=== PATIENT | female | born 1935 | race Caucasian/White ===

== ENCOUNTER → 2016-06-15 | Outpatient (CLI) | payer MEDICARE, BC ==
--- NOTE | 2016-06-15 12:56 | MR ---
EXAMINATION TYPE: MR brain wo con DATE OF EXAM: 06/15/2016 12:26 PM. COMPARISON: Previous study dated 02/22/2014. HISTORY: Confusion. Technique: Multiplanar, multiecho imaging of the brain was obtained without intravenous contrast. FINDINGS: There are generalized changes of sulcal prominence and ventriculomegaly, compatible with a trophic change. There is mild atrophy of the corpus callosum. Midline structures are otherwise unremarkable. There is a normal craniocervical junction. Echoplanar diffusion imaging is normal. There are normal vascular flow voids. The orbits are normal. There is no evidence of a CP angle mass lesion. There is minor mucoperiosteal thickening involving the maxillary sinuses bilaterally. There is abnormal signal within the genny and cerebral peduncles suggestive of layering degeneration. There is both punctate and confluent periventricular white matter change likely on the basis of chron ic ischemia and small vessel IMPRESSION: 1. NO ACUTE INTRACRANIAL ABNORMALITY. 2. MILD CEREBRAL ATROPHY. 3. PUNCTATE AND CONFLUENT WHITE MATTER DISEASE SUGGESTIVE SMALL VESSEL DISEASE AND CHRONIC ISCHEMIC C HANGE. 4. EVIDENCE OF DEGENERATION WITHIN THE GENNY.
== END | disposition home or self-care (01) ==
LOC: RADMRIMAIN 11:48
PROVIDERS: ATTEND Psychiatry & Neurology Neurology
DX: G31.9 Degenerative disease of nervous system, unspecified (principal)
CPT/HCPCS: 70551

== ENCOUNTER 2017-10-15 12:39 | Emergency (ER) | payer MEDICARE, BC ==
--- NOTE | 2017-10-15 13:03 | ED ---
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 Patient is accompanied by her daughter and granddaughter live with her the history was obtained from patient & family. Who stated that she had fallen a couple times over the weekend, they state that they were all mechanical in nature and witnessed . Patient was outside on uneven ground the grass with her walker when her walker caught on the ground patient fell backward and hit her lower back on the edge without, denies loss of consciousness, injury to her head or neck or any other extremities. She did have ecchymosis to the left paravertebral muscles. The second time they were inside when her walker caught the edge of the rug, pt fell backwards onto her buttock. Denying injury to head, neck or other extremity, LOC. The pst Saturday she was sent home when she tripped over the dog and her son in law was able to catch her before she fell. The patient brought by family due to complaints of low back pain and bruise to the left lower back. Patient denies any chest pain , shortness of breath, dizziness, numbness tingling or paresthesias to the extremities, visual changes, loss of hearing, diplopia prior to falling. When I inquired why she didn't she is falling so much she stated that her balance as she is getting older and has gotten worse and all the falls have been related to tripping over an object or with walker on uneven surface. Pt family feels as though she has been acting herself and havent noted any abnormalities in mental status. Upon presentation to the emergency department pt VS WNL. Pt denies new medications or increased in mediation dosage, numbness that her thighs, loss of bowel or bladder control , recent weight loss ,recent fever, chills, shortness of breath, vertigo, syncope, chest pain, back pain, abdominal pain, nausea or vomiting, numbness or tingling, dysuria or hematuria, constipation or diarrhea, headaches or visual changes, confusion or any other complaints. - Related Data Home Medications Medication Instructions Recorded Confirmed Cholecalciferol [Vitamin D3] 1,000 unit PO DAILY 10/02/13 10/15/17 FLUoxetine HCL [PROzac] 40 mg PO DAILY 10/02/13 10/15/17 Levothyroxine Sodium [Synthroid] 50 mcg PO DAILY 10/02/13 10/15/17 Aspirin EC [Ecotrin Low Dose] 81 mg PO DAILY 12/23/15 10/15/17 Atorvastatin [Lipitor] 10 mg PO HS 12/23/15 10/15/17 Latanoprost Ophth [Xalatan 0.005%] 1 drops BOTH EYES HS 12/23/15 10/15/17 Timolol Maleate 1 drop BOTH EYES QAM 12/23/15 10/15/17 rOPINIRole HCL [Requip] 3 mg PO HS 12/23/15 10/15/17 Omeprazole [PriLOSEC] 40 mg PO BID 01/28/17 10/15/17 Donepezil HCl [Aricept] 5 mg PO HS 10/15/17 10/15/17 Potassium Chloride [Klor-Con 20] 10 meq PO DAILY 10/15/17 10/15/17 Previous Rx's Medication Instructions Recorded ALPRAZolam [Xanax] 0.125 mg PO HS PRN #20 tablet 02/01/17 Allergies Allergy/AdvReac Type Severity Reaction Status Date / Time No Known Allergies Allergy Verified 10/15/17 13:38 Review of Systems ROS Statement: Those systems with pertinent positive or pertinent negative responses have been documented in the HPI. ROS Other: All systems not noted in ROS Statement are negative. Eyes: Denies: eye pain ENT: Denies: ear pain, throat pain Respiratory: Denies: cough, dyspnea Cardiovascular: Denies: chest pain, palpitations, dyspnea on exertion, orthopnea , edema, syncope Endocrine: Denies: fatigue Gastrointestinal: Denies: abdominal pain, nausea, vomiting, diarrhea, constipation, hematemesis, melena Genitourinary: Denies: urgency, dysuria, frequency, hematuria Musculoskeletal: Reports: as per HPI, back pain. Denies: joint swelling, arthralgia Skin: Denies: as per HPI Neurological: Denies: headache, weakness, numbness, paresthesias, confusion, abnormal gait, vertigo Past Medical History Past Medical History: Cancer, CVA/TIA, Diabetes Mellitus, GERD/Reflux, Hyperlipidemia, Hypertension, Osteoarthritis (OA), Thyroid Disorder Additional Past Medical History / Comment(s): Other HX: Diabetes-pt taken off meds, hyperlipidemia-pt no longer on meds, htn-meds tapered down, ARTHRITIS, BACK PAIN, SKIN CA, CVA alittle generalized weakness residual, TIA APRIL 2013 ( pt/francisco j think she has a couple), irregular heart beat at times, bradycardia at times. History of Any Multi-Drug Resistant Organisms: None Reported Past Surgical History: Hysterectomy Additional Past Surgical History / Comment(s): colonoscopies with polypectomy- benign. Patient had epidural in lumbar spine on 01-07-17. Past Anesthesia/Blood Transfusion Reactions: No Reported Reaction Past Psychological History: Anxiety, Depression Smoking Status: Never smoker Past Alcohol Use History: None Reported Past Drug Use History: None Reported - Past Family History Father Family Medical History: Coronary Artery Disease (CAD), Myocardial Infarction ([place] ) Additional Family Medical History / Comment(s): Father of [place]-pt unsure what age,. Mother Family Medical History: CVA/TIA General Exam - General Exam Comments Initial Comments: General: The patient is awake and alert, in no distress, and does not appear acutely ill. Eye: Pupils are equal, round and reactive to light, extra-ocular movements are intact. No nystagmus. There is normal conjunctiva bilaterally. No signs of icterus. Ears, nose, mouth and throat: There are moist mucous membranes and no oral lesions. Neck: The neck is supple, there is no tenderness or JVD. Cardiovascular: There is a regular rate and rhythm. No murmur, rub or gallop is appreciated. Respiratory: Lungs are clear to auscultation, respirations are non-labored, breath sounds are equal. No wheezes, stridor, rales, or rhonchi. Gastrointestinal: [Soft, non-distended, non-tender abdomen without masses or organomegaly noted. There is no rebound or guarding present. No CVA tenderness. Bowel sounds are unremarkable.] Musculoskeletal: Inspection of the lumbar spine reveals ecchymosis of the left lumbar paravertebral muscles. No tenderness patient of the vertebrae midline, mild paravertebral tenderness over the area of ecchymosis . Patient is full range of motion of lumbar spine with hyperextension and flexion . Deep tendon reflexes patellar and Achilles +2 out of 5 . Full sensation in lower extremities bilaterally . No saddle paresthesias . She able to heel and toe. No gait abnormalities. Normal ROM, no tenderness. Strength 5/5. Sensation intact. DP pulses equal bilaterally 2+. Neurological: A&O x 3. CN II-XII intact, patient has coordinated nose to finger motion, heel to rosas. No pronator drift. Full 5/5 strength in UE/LE equal bilaterally. Speech is normal. Memory intact immediate, intermediate and long-term. Normal gait- no evidence of ataxia. Skin: Skin is warm and dry and no rashes or lesions are noted. Psychiatric: Cooperative, appropriate mood & affect, normal judgment. 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 Patient is accompanied by her daughter and granddaughter live with her the history was obtained from patient & family. Who stated that she had fallen a couple times over the weekend, they state that they were all mechanical in nature and witnessed . Patient was outside on uneven ground the grass with her walker when her walker caught on the ground patient fell backward and hit her lower back on the edge without, denies loss of consciousness, injury to her head or neck or any other extremities. She did have ecchymosis to the left paravertebral muscles. The second time they were inside when her walker caught the edge of the rug, pt fell backwards onto her buttock. Denying injury to head, neck or other extremity, LOC. The [facility] Saturday she was sent home when she tripped over the dog and her son in law was able to catch her before she fell. The patient brought by family due to complaints of low back pain and bruise to the left lower back. Patient denies any chest pain , shortness of breath, dizziness, numbness tingling or paresthesias to the extremities, visual changes, loss of hearing, diplopia prior to falling. When I inquired why she didn't she is falling so much she stated that her balance as she is getting older and has gotten worse and all the falls have been related to tripping over an object or with walker on uneven surface. Pt family feels as though she has been acting herself and havent noted any abnormalities in mental status. Upon presentation to the emergency department pt VS WNL. Pt denies new medications or increased in mediation dosage, numbness that her thighs, loss of bowel or bladder control , recent weight loss ,recent fever, chills, shortness of breath, vertigo, syncope, chest pain, back pain, abdominal pain, nausea or vomiting, numbness or tingling, dysuria or hematuria, constipation or diarrhea, headaches or visual changes, confusion or any other complaints. Examination of the lumbar spine reveals a 6 cm area of left paravertebral muscle ecchymosis with tenderness over that region. Remainder of lumbar, thoracic, and cervical spine exam unremarkable. Neurological exam unremarkable no signs of focal change or altered mental status. EKG obtained and was compared to that of January 28, [address] Heart there does not appear to be any acute changes. X-ray of lumbar spine negative. Pt ambulated to [place] with the nurse prior to discharge, no signs of ataxia, weakness or unsteady gait. The case was discussed with Dr. Heart who at this time the patient is stable for discharge, with primary care follow-up in 1-2 days. Patient and family was instructed to come to the emergency department if there are any new or worsening symptoms. Patient is agreed this was an appropriate plan. VS upon discharge WNL. - Lab Data Lab Results 10/15/17 Range/Units 13:17 Urine Color Yellow Urine Appearance Cloudy H (Clear) Urine pH 6.5 (5.0-8.0) Ur Specific [facility] 1.018 (1.001-1.035) Urine Protein 1+ H (Negative) Urine Glucose (UA) Negative (Negative) Urine Ketones Negative (Negative) Urine Blood Negative (Negative) Urine Nitrite Negative (Negative) Urine Bilirubin Negative (Negative) Urine Urobilinogen <2.0 (<2.0) mg/dL Ur Leukocyte Esterase Large H (Negative) Urine RBC 1 (0-5) /hpf Urine WBC 3 (0-5) /hpf Ur Squamous Epith Cells 6 H (0-4) /hpf Urine Bacteria Rare H (None) /hpf Hyaline Casts 3 H (0-2) /lpf Urine Mucus Rare H (None) /hpf Disposition Clinical Impression: Low back pain Disposition: HOME SELF-CARE Condition: Good Instructions: Fall Prevention for Older Adults (ED) Additional Instructions: Please follow-up with family doctor in the next 2 days. Please return to emergency room if the symptoms increase or worsen or for any other concerns. Is patient prescribed a controlled substance at d/c from ED?: No Referrals: Violetta Pimentel MD [Primary Care Provider] - 1-2 days Time of Disposition: 14:19
[2017-10-15 13:35] LABS: Appearance,Urine Cloudy (Clear); Bacteria,Urine Rare /hpf; Bilirubin,Urine Negative (Negative); Blood,Urine Negative (Negative); Color,Urine Yellow; Glucose,Urine (UA) Negative (Negative); Hyaline Casts,Urine 3 /lpf (0-2); Ketones,Urine Negative (Negative); Leukocyte Esterase,Urine Large (Negative); Mucus,Urine Rare /hpf; Nitrite,Urine Negative (Negative); PH, Urine 6.5 (5.0-8.0); Protein,Urine 1+ (Negative); RBC,Urine 1 /hpf (0-5); Specific Gravity,Urine 1.018 (1.001-1.035); Squamous Epithelial Cell,Urine 6 /hpf (0-4); Urobilinogen,Urine <2.0 mg/dL (<2.0); WBC,Urine 3 /hpf (0-5)
--- NOTE | 2017-10-15 13:41 | XR ---
EXAMINATION TYPE: XR lumbar spine 2 or 3V DATE OF EXAM: 10/15/2017 CLINICAL HISTORY: Low back pain after fall TECHNIQUE: Frontal and lateral images of the lumbar spine are obtained. COMPARISON: CT abdomen and pelvis January 29, 2017 FINDINGS: Osseous structures are demineralized which is noted to lower radiographic sensitivity. The re are 5 lumbar type vertebral bodies redemonstrated. The lumbar spine redemonstrates levoconvex sco liosis centered at L2 level without evidence of acute fracture or dislocation. There is persistent se jaqueline grade 1 anterolisthesis L4 on L5. Vertebral body heights are maintained. Advanced disc space virgen rowing L2-L3 level is redemonstrated most prominent right aspect. Moderate disc space narrowing right L1-L2 level is redemonstrated. There is moderate to advanced disc space narrowing with moderate spur ring anterior T11-T12 and T12-L1 levels. Moderate disc space narrowing left L4-L5 level is seen. Ther e is prominent facet arthropathy lower lumbar levels. Vascular calcification overlying aorta is prese nt. IMPRESSION: No acute fracture or dislocation is seen in the lumbar spine. Other findings as detailed above not significantly changed from prior CT.
[2017-10-15 14:34] VITALS: BP 171/74; PULSE 60; RESP 16; TEMP 97.3
== END 2017-10-15 14:33 | disposition home or self-care (01) ==
LOC: EC 12:39
DX: S30.0XXA Contusion of lower back and pelvis, initial encounter (principal); R29.6 Repeated falls; E78.5 Hyperlipidemia, unspecified; I10 Essential (primary) hypertension; K21.9 Gastro-esophageal reflux disease without esophagitis; M19.90 Unspecified osteoarthritis, unspecified site; E07.9 Disorder of thyroid, unspecified; F32.9 Major depressive disorder, single episode, unspecified; F41.9 Anxiety disorder, unspecified; Z79.82 Long term (current) use of aspirin; Z79.899 Other long term (current) drug therapy; W18.09XA Striking against other object with subsequent fall, initial encounter; Y93.01 Activity, walking, marching and hiking; Y92.89 Other specified places as the place of occurrence of the external cause
CPT/HCPCS: 72100; 81001; 87086; 93005; 99284

== ENCOUNTER 2017-10-20 12:36 | Inpatient (IN) | payer MEDICARE, BC ==
[2017-10-20] MEDS ORDERED: NALOXONE 0.4 MG/ML 1 ML VIAL IV PRN (14:07)
[2017-10-20] MEDS ORDERED: ONDANSETRON 4 MG/2 ML VIAL IVP PRN (14:07)
[2017-10-20] MEDS ORDERED: ACETAMINOPHEN TAB 325 MG TAB PO PRN (14:07)
--- NOTE | 2017-10-20 14:07 | ED ---
Fall HPI - General Chief Complaint: Fall Stated Complaint: fall Time Seen by Provider: 10/20/17 12:38 Source: patient, EMS, RN notes reviewed Mode of arrival: EMS Limitations: no limitations - History of Present Illness Initial Comments: 82-year-old female presents emergency department via EMS chief complaint of a fall. Patient complains of fall that she slipped while cleaning. She fell onto her left hip complaints of Left hip pain. Patient had no head injury no loss conscious. Patient does not take any blood thinners. Patient states that she has no other noted injuries. Patient was given pain meds by EMS. - Related Data Home Medications Medication Instructions Recorded Confirmed Cholecalciferol [Vitamin D3] 1,000 unit PO DAILY 10/02/13 10/15/17 FLUoxetine HCL [PROzac] 40 mg PO DAILY 10/02/13 10/15/17 Levothyroxine Sodium [Synthroid] 50 mcg PO DAILY 10/02/13 10/15/17 Aspirin EC [Ecotrin Low Dose] 81 mg PO DAILY 12/23/15 10/15/17 Atorvastatin [Lipitor] 10 mg PO HS 12/23/15 10/15/17 Latanoprost Ophth [Xalatan 0.005%] 1 drops BOTH EYES HS 12/23/15 10/15/17 Timolol Maleate 1 drop BOTH EYES QA 12/23/15 10/15/17 rOPINIRole HCL [Requip] 3 mg PO HS 12/23/15 10/15/17 Omeprazole [PriLOSEC] 40 mg PO BID 01/28/17 10/15/17 Donepezil HCl [Aricept] 5 mg PO HS 10/15/17 10/15/17 Potassium Chloride [Klor-Con 20] 10 meq PO DAILY 10/15/17 10/15/17 Previous Rx's Medication Instructions Recorded ALPRAZolam [Xanax] 0.125 mg PO HS PRN #20 tablet 02/01/17 Allergies Allergy/AdvReac Type Severity Reaction Status Date / Time No Known Allergies Allergy Verified 10/20/17 12:44 Review of Systems ROS Statement: Those systems with pertinent positive or pertinent negative responses have been documented in the HPI. ROS Other: All systems not noted in ROS Statement are negative. Past Medical History Past Medical History: Cancer, CVA/TIA, Diabetes Mellitus, GERD/Reflux, Hyperlipidemia, Hypertension, Osteoarthritis (OA), Thyroid Disorder Additional Past Medical History / Comment(s): Other HX: Diabetes-pt taken off meds, hyperlipidemia-pt no longer on meds, htn-meds tapered down, ARTHRITIS, BACK PAIN, SKIN CA, CVA alittle generalized weakness residual, TIA APRIL 2013 ( pt/francisco j think she has a couple), irregular heart beat at times, bradycardia at times. History of Any Multi-Drug Resistant Organisms: None Reported Past Surgical History: Hysterectomy Additional Past Surgical History / Comment(s): colonoscopies with polypectomy- benign. Patient had epidural in lumbar spine on 01-07-17. Past Anesthesia/Blood Transfusion Reactions: No Reported Reaction Past Psychological History: Anxiety, Depression Smoking Status: Never smoker Past Alcohol Use History: None Reported Past Drug Use History: None Reported - Past Family History Father Family Medical History: Coronary Artery Disease (CAD), Myocardial Infarction ([place] ) Additional Family Medical History / Comment(s): Father of [place]-pt unsure what age,. Mother Family Medical History: CVA/TIA General Exam Limitations: no limitations General appearance: alert, in no apparent distress Head exam: Present: atraumatic, normocephalic, normal inspection Respiratory exam: Present: normal lung sounds bilaterally. Absent: respiratory distress, wheezes, rales, rhonchi, stridor Cardiovascular Exam: Present: regular rate, normal rhythm, normal heart sounds. Absent: systolic murmur, diastolic murmur, rubs, gallop, clicks Extremities exam: Present: other (Tenderness to left hip there is some shortening rotation noted, pain with any passive or active range of motion. Pupils are equal bilaterally) Course Vital Signs 10/20/17 10/20/17 12:41 13:44 Temperature 97.8 F Pulse Rate 60 Respiratory 18 16 Rate Blood Pressure 173/74 O2 Sat by Pulse 100 Oximetry Medical Decision Making - Medical Decision Making 82-year-old female presented for a fall. Discussed with [facility] who accepts admission for Dr. Pepper for left hip fracture Disposition Clinical Impression: Fall, Fracture of left hip Disposition: ADMITTED IP TO THIS [facility] Condition: Stable Referrals: Violetta Pimentel MD [Primary Care Provider] - 1-2 days
--- NOTE | 2017-10-20 14:15 | XR ---
EXAMINATION TYPE: XR Hip LT and AP Pelvis , 3 VIEWS DATE OF EXAM ORDERED: 10/20/2017 HISTORY: Pain. COMPARISON: None. FINDINGS: There is intertrochanteric fracture of the left hip with moderate angulation and foreshort ening. No other acute osseous fracture is seen. IMPRESSION: INTERTROCHANTERIC FRACTURE THE LEFT HIP WITH MODERATE ANGULATION AND FORESHORTENING. CODE: INITIAL ENCOUNTER FOR CLOSED FRACTURE.
[2017-10-20] MEDS: MORPHINE SULFATE 4 MG/ML SYRINGE IV PRN (14:41)
[2017-10-20 14:45] LABS: Appearance,Urine Clear (Clear); Bilirubin,Urine Negative (Negative); Blood,Urine Negative (Negative); Color,Urine Light Yellow; Glucose,Urine (UA) Negative (Negative); Ketones,Urine Negative (Negative); Leukocyte Esterase,Urine Negative (Negative); Nitrite,Urine Negative (Negative); Protein,Urine Negative (Negative); Urobilinogen,Urine <2.0 mg/dL (<2.0)
[2017-10-20 14:47] LABS: Basophils % (A) 0 %; Eosinophils % (A) 0 %; HCT 34.8 % (34.0-46.0); HGB 11.6 gm/dL (11.4-16.0); Lymphocytes # (A) 1.3 k/uL (1.0-4.8); Lymphocytes % (A) 14 %; MCH 32.7 pg (25.0-35.0); MCHC 33.3 g/dL (31.0-37.0); MCV 98.3 fL (80.0-100.0); Mean Platelet Volume 7.3; Monocytes # (A) 0.4 k/uL (0-1.0); Monocytes % (A) 5 %; Neutrophils # (A) 7.2 k/uL (1.3-7.7); Neutrophils % (A) 79 %; Platelet Count 256 k/uL (150-450); RBC 3.55 m/uL (3.80-5.40); RDW 13.7 % (11.5-15.5); WBC 9.1 k/uL (3.8-10.6)
[2017-10-20 14:57] LABS: Albumin 3.7 g/dL (3.5-5.0); Calcium 9.3 mg/dL (8.4-10.2); Total Bilirubin 0.4 mg/dL (0.2-1.3); Total Protein 6.1 g/dL (6.3-8.2)
[2017-10-20 15:02] LABS: Prothrombin Time 9.6 sec (9.0-12.0)
--- NOTE | 2017-10-20 15:02 | XR ---
EXAMINATION TYPE: XR chest 1V DATE OF EXAM: 10/20/2017 COMPARISON: Prior chest 01/28/2017, 04/04/2014 HISTORY: Pain TECHNIQUE: Single frontal view of the chest is obtained. FINDINGS: There is no focal air space opacity, pleural effusion, or pneumothorax seen. The cardiac silhouette size is within normal limits. The osseous structures are intact. IMPRESSION: No acute process.
[2017-10-20 16:21] VITALS: BMI 20.4
[2017-10-20 17:19] LABS: Glucose,Whole Blood 103 mg/dL (75-99)
[2017-10-20] MEDS ORDERED: ALPRAZolam 0.25 MG TAB PO PRN (17:23)
[2017-10-20] MEDS ORDERED: ENALAPRILAT 1.25 MG/ML 1 ML VIAL IVP PRN (17:44)
--- NOTE | 2017-10-20 17:44 | P.HPIM ---
History of Present Illness H&P Date: 10/20/17 Chief Complaint: Fall with left hip pain Prerna Diego is an 82-year-old female patient of Dr. Pimentel who presented to [facility] emergency room after sustaining a fall and having pain in the left hip area. Patient was evaluated in the emergency room and had an x-ray of the left hip which revealed evidence of intertrochanteric fracture of the left hip. She was admitted under Dr. Pepper service, medical consultation was requested for surgical clearance and for medical management while hospitalized. Patient was interviewed and examined on the surgical floor she is alert and oriented 3 in no apparent distress she states that she slipped and fell while she was cleaning, she denies having any loss of consciousness, she denies having any symptoms prior to falling there was no dizziness no chest pain and no shortness of breath. Patient has a bruise on the left frontal area but she states that was from a fall more than a week ago she denies any head trauma at this time. Patient has known history of hypertension and hyperlipidemia she is also maintained on blood thinners aspirin and Plavix, indication for which she is not very clear, she denies having any cardiac history in the past she denies seen any retail special event associate in the past she denies having any cardiac catheterization or stent placement, she denies having any peripheral vascular disease or having any intervention on her lower extremities, she denies having any strokes or TIAs in the past. Patient states that she never smoked she drinks alcohol rarely 2-3 times per year, she denies any illicit drug use, she lives independently and was able to ambulate and take care of her daily needs. Past Medical History Past Medical History: Cancer, CVA/TIA, Diabetes Mellitus, GERD/Reflux, Hyperlipidemia, Hypertension, Osteoarthritis (OA), Thyroid Disorder Additional Past Medical History / Comment(s): Other HX: Diabetes-pt taken off meds, hyperlipidemia-pt no longer on meds, htn-meds tapered down, ARTHRITIS, BACK PAIN, SKIN CA, CVA alittle generalized weakness residual, TIA APRIL 2013 ( pt/francisco j think she has a couple), irregular heart beat at times, bradycardia at times. History of Any Multi-Drug Resistant Organisms: None Reported Past Surgical History: Hysterectomy Additional Past Surgical History / Comment(s): colonoscopies with polypectomy- benign. Patient had epidural in lumbar spine on 01-07-17. Past Anesthesia/Blood Transfusion Reactions: No Reported Reaction Past Psychological History: Anxiety, Depression Additional Psychological History / Comment(s): Pt's daugther lives with pt. PT ambulates with cane and walker and a walk in tub. Daugther helps her by getting things set up in the bathroom. Pt performs ADLs mostly herself with francisco j on stand-by. Pt does not drive-daugther takes to appts. Smoking Status: Never smoker Past Alcohol Use History: None Reported Past Drug Use History: None Reported - Past Family History Father Family Medical History: Coronary Artery Disease (CAD), Myocardial Infarction ([place] ) Additional Family Medical History / Comment(s): Father of [place]-pt unsure what age,. Mother Family Medical History: CVA/TIA Medications and Allergies Home Medications Medication Instructions Recorded Confirmed Type Cholecalciferol [Vitamin D3] 1,000 unit PO DAILY 10/02/13 10/20/17 History FLUoxetine HCL [PROzac] 40 mg PO DAILY 10/02/13 10/20/17 History Levothyroxine Sodium [Synthroid] 50 mcg PO DAILY 10/02/13 10/20/17 History Aspirin EC [Ecotrin Low Dose] 81 mg PO DAILY 12/23/15 10/20/17 History Atorvastatin [Lipitor] 20 mg PO HS 12/23/15 10/20/17 History Timolol Maleate 1 drop BOTH EYES QAM 12/23/15 10/20/17 History rOPINIRole HCL [Requip] 3 mg PO HS 12/23/15 10/20/17 History Omeprazole [PriLOSEC] 40 mg PO BID 01/28/17 10/20/17 History ALPRAZolam [Xanax] 0.125 mg PO HS PRN #20 tablet 02/01/17 10/20/17 Rx Donepezil HCl [Aricept] 5 mg PO HS 10/15/17 10/20/17 History Clopidogrel [Plavix] 75 mg PO DAILY 10/20/17 10/20/17 History Diclofenac Sodium [Voltaren Gel] 2 gram TOPICAL BID PRN 10/20/17 10/20/17 History Lisinopril [Prinivil] 5 mg PO DAILY 10/20/17 10/20/17 History Allergies Allergy/AdvReac Type Severity Reaction Status Date / Time No Known Allergies Allergy Verified 10/20/17 12:44 Physical Exam Vitals: Vital Signs Temp Pulse Pulse Resp BP BP Pulse Ox 10/20/17 17:22 61 18 144/64 10/20/17 15:49 98.3 F 62 16 202/80 100 10/20/17 15:30 97.8 F 58 L 16 172/70 99 10/20/17 14:00 57 L 16 171/75 100 10/20/17 13:44 16 10/20/17 12:41 97.8 F 60 18 173/74 100 Intake and Output 10/20/17 10/20/17 10/20/17 06:59 14:59 22:59 Other: Weight 48.988 kg In general patient is alert and oriented 3 in no apparent distress Head normocephalic with evidence of trauma to the left frontal area Neck is supple no JVD no goiter no lymphadenopathy Chest exam reveals a few scattered crackles no wheezing Cardiac exam reveals regular heart sounds S1 and S2 no gallops no murmurs Abdomen is soft nontender no organomegaly with normal bowel sounds Extremity exam reveals no edema no cyanosis or clubbing Results CBC & Chem 7: 10/20/17 14:30 10/20/17 14:30 Labs: Abnormal Lab Results - Last 24 Hours (Table) 10/20/17 10/20/17 10/20/17 Range/Units 14:30 14:30 14:30 RBC 3.55 L (3.80-5.40) m/uL APTT 21.0 L (22.0-30.0) sec Chloride 110 H (98-107) mmol/L Carbon Dioxide 19 L (22-30) mmol/L BUN 18 H (7-17) mg/dL Glucose 107 H (74-99) mg/dL POC Glucose (mg/dL) (75-99) mg/dL Total Protein 6.1 L (6.3-8.2) g/dL 10/20/17 Range/Units 17:12 RBC (3.80-5.40) m/uL APTT (22.0-30.0) sec Chloride (98-107) mmol/L Carbon Dioxide (22-30) mmol/L BUN (7-17) mg/dL Glucose (74-99) mg/dL POC Glucose (mg/dL) 103 H (75-99) mg/dL Total Protein (6.3-8.2) g/dL Thrombosis Risk Factor Assmnt - Choose All That Apply Each Factor Represents 1 point: Medical pt on bed rest Other Risk Factors: No Each Risk Factor Represents 5 Points: Hip, pelvis, or leg fracture (< 1 month) Thrombosis Risk Factor Assessment Total Risk Factor Score: 6 Thrombosis Risk Factor Assessment Level: High Risk Assessment and Plan Plan: #1 fall with left hip intertrochanteric fracture patient is admitted to orthopedic surgery for possible surgical intervention #2 underlying the use of blood thinner Plavix patient stated that she took a pill on 10/20/2017 in a.m. she also took aspirin 81 mg at the same time. This would increase the risk of bleeding, will defer to orthopedic protocols to assess if platelet transfusion is necessary, or delay in surgery is necessary to avoid excessive bleeding. #3 hypertension blood pressure is elevated at this time will resume lisinopril 5 mg by mouth daily Will also add enalapril IV as needed #4 underlying history of depression maintained on Prozac continue #5 underlying history of hyperlipidemia maintained on Lipitor continue #6 underlying history of dementia maintained on Aricept Medication were reviewed and reordered this time we are keeping Plavix and aspirin on hold Will follow during this hospitalization for medical management
[2017-10-20] MEDS: PANTOPRAZOLE 40 MG TABLET PO SCH (18:18)
[2017-10-20] MEDS: LISINOPRIL 5 MG TAB PO SCH (18:18)
[2017-10-20] MEDS: TIMOLOL 0.25% OPHTH DROPS 5 ML BTL BOTH EYES SCH (18:19)
[2017-10-20] MEDS: HYDROcodone/APAP 5-325MG 1 EACH TAB PO PRN (19:21)
[2017-10-20 21:22] LABS: Glucose,Whole Blood 111 mg/dL (75-99)
[2017-10-20] MEDS: ATORVASTATIN 20 MG TAB PO SCH (22:00)
[2017-10-20] MEDS: DONEPEZIL 5 MG TAB PO SCH (22:00)
[2017-10-20] MEDS: DICLOFENAC SODIUM GEL 100 GM TUBE TOPICAL PRN (22:31)
[2017-10-21] MEDS: LEVOTHYROXINE 50 MCG TAB PO SCH (05:32)
[2017-10-21 08:07] LABS: ALT 24 U/L (9-52); AST 15 U/L (14-36); Alkaline Phosphatase 54 U/L (38-126); Anion Gap 3 mmol/L; Blood Urea Nitrogen 19 mg/dL (7-17); Calcium 8.8 mg/dL (8.4-10.2); Carbon Dioxide 26 mmol/L (22-30); Chloride 106 mmol/L (98-107); Glucose 112 mg/dL (74-99); Potassium 4.4 mmol/L (3.5-5.1); Sodium 135 mmol/L (137-145); Total Bilirubin 0.6 mg/dL (0.2-1.3); Total Protein 5.2 g/dL (6.3-8.2)
[2017-10-21] MEDS: DICLOFENAC SODIUM GEL 100 GM TUBE TOPICAL PRN (08:20)
[2017-10-21] MEDS: LISINOPRIL 5 MG TAB PO SCH (08:20)
[2017-10-21] MEDS: FLUoxetine HCL 20 MG CAP PO SCH (08:20)
[2017-10-21] MEDS: PANTOPRAZOLE 40 MG TABLET PO SCH ×2 (08:20→16:49)
--- NOTE | 2017-10-21 09:13 | P.HPOR ---
History of Present Illness H&P Date: 10/21/17 Chief Complaint: Left hip intertrochanteric fracture The patient is an 82-year-old female who presented to the emergency department yesterday after sustaining a fall at home while cleaning. She does have a history of CVA, diabetes, GERD, hyperlipidemia, hypertension, osteoarthritis, and thyroid disorder. She states that she fell onto her left side. She denies any head injury or loss of consciousness. The patient's daughter is at the bedside this morning and states that she does take aspirin 81 mg daily but does not take any other blood thinners at this time. She did previously take Plavix her last dose was in August. She denies any other injuries at this time. Today, the patient states that she has left hip pain which is controlled with pain medication. She denies fever, chills, rigors, abdominal pain, shortness breath, chest pain at this time. She is status post epidural steroid injection by Dr. Martinez on 10/07/2017. The injection provided good relief for her lumbar spine. Review of Systems Constitutional: Denies chills, Denies fatigue, Denies fever Cardiovascular: Denies chest pain, Denies shortness of breath Respiratory: Denies cough Gastrointestinal: Denies diarrhea, Denies nausea, Denies vomiting Musculoskeletal: left: hip pain, hip stiffness, hip swelling Past Medical History Past Medical History: Cancer, CVA/TIA, Diabetes Mellitus, GERD/Reflux, Hyperlipidemia, Hypertension, Osteoarthritis (OA), Thyroid Disorder Additional Past Medical History / Comment(s): Other HX: Diabetes-pt taken off meds, hyperlipidemia-pt no longer on meds, htn-meds tapered down, ARTHRITIS, BACK PAIN, SKIN CA, CVA alittle generalized weakness residual, TIA APRIL 2013 ( pt/francisco j think she has a couple), irregular heart beat at times, bradycardia at times. History of Any Multi-Drug Resistant Organisms: None Reported Past Surgical History: Hysterectomy Additional Past Surgical History / Comment(s): colonoscopies with polypectomy- benign. Patient had epidural in lumbar spine on 01-07-17. Past Anesthesia/Blood Transfusion Reactions: No Reported Reaction Past Psychological History: Anxiety, Depression Additional Psychological History / Comment(s): Pt's daugther lives with pt. PT ambulates with cane and walker and a walk in tub. Daugther helps her by getting things set up in the bathroom. Pt performs ADLs mostly herself with francisco j on stand-by. Pt does not drive-daugther takes to appts. Smoking Status: Never smoker Past Alcohol Use History: None Reported Past Drug Use History: None Reported - Past Family History Father Family Medical History: Coronary Artery Disease (CAD), Myocardial Infarction ([place] ) Additional Family Medical History / Comment(s): Father of [place]-pt unsure what age,. Mother Family Medical History: CVA/TIA Medications and Allergies Home Medications Medication Instructions Recorded Confirmed Type Cholecalciferol [Vitamin D3] 1,000 unit PO DAILY 10/02/13 10/20/17 History FLUoxetine HCL [PROzac] 40 mg PO DAILY 10/02/13 10/20/17 History Levothyroxine Sodium [Synthroid] 50 mcg PO DAILY 10/02/13 10/20/17 History Aspirin EC [Ecotrin Low Dose] 81 mg PO DAILY 12/23/15 10/20/17 History Atorvastatin [Lipitor] 20 mg PO HS 12/23/15 10/20/17 History Timolol Maleate 1 drop BOTH EYES QAM 12/23/15 10/20/17 History rOPINIRole HCL [Requip] 3 mg PO HS 12/23/15 10/20/17 History Omeprazole [PriLOSEC] 40 mg PO BID 01/28/17 10/20/17 History ALPRAZolam [Xanax] 0.125 mg PO HS PRN #20 tablet 02/01/17 10/20/17 Rx Donepezil HCl [Aricept] 5 mg PO HS 10/15/17 10/20/17 History Clopidogrel [Plavix] 75 mg PO DAILY 10/20/17 10/20/17 History Diclofenac Sodium [Voltaren Gel] 2 gram TOPICAL BID PRN 10/20/17 10/20/17 History Lisinopril [Prinivil] 5 mg PO DAILY 10/20/17 10/20/17 History Allergies Allergy/AdvReac Type Severity Reaction Status Date / Time No Known Allergies Allergy Verified 10/20/17 12:44 Physical Examination The patient is an 82 year old female that is no acute distress. She is alert and oriented x3. The patient's head is normocephalic and atraumatic. Exam of the cervical spine reveals no pain upon palpation or range of motion. Exam of the bilateral upper extremities reveal no obvious deformities or pain upon range of motion. Exam of the right lower extremity reveals no pain upon palpation. Exam of the left lower extremity reveals a externally rotated and shortened leg. No pain upon palpation to the lateral hip. There is pain upon logrolling and any range of motion of the leg. Bilateral calves are soft and nontender. Patient has good foot and ankle motion bilaterally. Neurological and circulatory status is intact. Results - Labs Labs: Abnormal Lab Results - Last 24 Hours (Table) 10/20/17 10/20/17 10/20/17 Range/Units 14:30 14:30 14:30 RBC 3.55 L (3.80-5.40) m/uL APTT 21.0 L (22.0-30.0) sec Sodium (137-145) mmol/L Chloride 110 H (98-107) mmol/L Carbon Dioxide 19 L (22-30) mmol/L BUN 18 H (7-17) mg/dL Glucose 107 H (74-99) mg/dL POC Glucose (mg/dL) (75-99) mg/dL Total Protein 6.1 L (6.3-8.2) g/dL Albumin (3.5-5.0) g/dL 10/20/17 10/20/17 10/21/17 Range/Units 17:12 21:19 07:05 RBC (3.80-5.40) m/uL APTT (22.0-30.0) sec Sodium 135 L (137-145) mmol/L Chloride (98-107) mmol/L Carbon Dioxide (22-30) mmol/L BUN 19 H (7-17) mg/dL Glucose 112 H (74-99) mg/dL POC Glucose (mg/dL) 103 H 111 H (75-99) mg/dL Total Protein 5.2 L (6.3-8.2) g/dL Albumin 3.0 L (3.5-5.0) g/dL H & H 10/20/17 Range/Units 14:30 Hgb 11.6 (11.4-16.0) gm/dL Hct 34.8 (34.0-46.0) % Coagulation 10/20/17 Range/Units 14:30 INR 1.0 (<1.2) Result Diagrams: 10/20/17 14:30 10/21/17 07:05 - Diagnostic results Hip x-ray: image reviewed (Left hip IT fracture) Assessment and Plan (1) Closed fracture of left hip Current Visit: Yes Status: Acute Code(s): S72.002A - FRACTURE OF UNSP PART OF NECK OF LEFT FEMUR, INIT SNOMED Code(s): 247893388 (2) Fall Current Visit: Yes Status: Acute Code(s): W19.XXXA - UNSPECIFIED FALL, INITIAL ENCOUNTER SNOMED Code(s): 6434154 Plan: The clinical and x-ray findings were discussed with the patient and the patient' s daughter at the bedside. The case was also discussed with Dr. Pepper. We are planning surgical intervention in the form of an ORIF with dynamic hip screw this afternoon. She'll remain nothing by mouth at this time. She will most likely need rehab placement after surgery. Surgical risks were discussed at length with the patient. Possible risks and complications including but not limited to risk of bleeding, infection, dislocation, DVT, stroke, heart attack, and were discussed.
[2017-10-21] MEDS: HYDROcodone/APAP 5-325MG 1 EACH TAB PO PRN (09:35)
[2017-10-21] MEDS: TIMOLOL 0.25% OPHTH DROPS 5 ML BTL BOTH EYES SCH (09:36)
--- NOTE | 2017-10-21 11:18 | P.PN ---
Subjective Progress Note Date: 10/21/17 Prerna Diego is an 82-year-old female patient of Dr. Pimentel who presented to [facility] emergency room after sustaining a fall and having pain in the left hip area. Patient was evaluated in the emergency room and had an x-ray of the left hip which revealed evidence of intertrochanteric fracture of the left hip. She was admitted under Dr. Pepper service, medical consultation was requested for surgical clearance and for medical management while hospitalized. Patient was interviewed and examined on the surgical floor she is alert and oriented 3 in no apparent distress she states that she slipped and fell while she was cleaning, she denies having any loss of consciousness, she denies having any symptoms prior to falling there was no dizziness no chest pain and no shortness of breath. Patient has a bruise on the left frontal area but she states that was from a fall more than a week ago she denies any head trauma at this time. Patient has known history of hypertension and hyperlipidemia she is also maintained on blood thinners aspirin and Plavix, indication for which she is not very clear, she denies having any cardiac history in the past she denies seen any family member caretaker in the past she denies having any cardiac catheterization or stent placement, she denies having any peripheral vascular disease or having any intervention on her lower extremities, she denies having any strokes or TIAs in the past. 10/21/2017 patient currently resting in bed with some complaint of left hip pain. Family at bedside. Per family, patient has not been on Plavix since August 29. They also state patient was taking the plavix for strokes. Due to conflicting information in regards to when the Plavix has been taken, medical clearance is on hold at this time due to patient stating yesterday that she had taken her Plavix in the AM and the potential increase risk of bleeding with surgery. Per nursing staff patient's heart rate this AM was 52 BPM. Orders placed for patient to be on telemetry and for a cardiology consultation. Patient denies chest pain or shortness of breath. Objective - Vital Signs Vital signs: Vital Signs Temp 98.5 F 10/20/17 23:49 Pulse 60 10/20/17 23:49 Resp 16 10/21/17 03:40 BP 127/65 10/20/17 23:49 Pulse Ox 99 10/20/17 23:49 Intake & Output 10/20/17 10/21/17 10/21/17 18:59 06:59 18:59 Intake Total 180 960 Output Total 1150 Balance 180 -190 Weight 48.988 kg Intake: Oral 180 960 Output: Urine 1150 Other: Voiding Method Indwelling Catheter - Exam Head normocephalic Neck supple Lungs clear to auscultation bilaterally no wheezing or crackles Heart bradycardia regular rate and rhythm S1-S2, no rub or gallop Abdomen is soft nontender nondistended positive bowel sounds no hepatosplenomegaly Extremities no edema. Left hip tenderness and pain Neuro alert and orientated to 3 - Labs CBC & Chem 7: 10/20/17 14:30 10/21/17 07:05 Labs: Abnormal Lab Results - Last 24 Hours (Table) 10/20/17 10/20/17 10/20/17 Range/Units 14:30 14:30 14:30 RBC 3.55 L (3.80-5.40) m/uL APTT 21.0 L (22.0-30.0) sec Sodium (137-145) mmol/L Chloride 110 H (98-107) mmol/L Carbon Dioxide 19 L (22-30) mmol/L BUN 18 H (7-17) mg/dL Glucose 107 H (74-99) mg/dL POC Glucose (mg/dL) (75-99) mg/dL Total Protein 6.1 L (6.3-8.2) g/dL Albumin (3.5-5.0) g/dL 10/20/17 10/20/17 10/21/17 Range/Units 17:12 21:19 07:05 RBC (3.80-5.40) m/uL APTT (22.0-30.0) sec Sodium 135 L (137-145) mmol/L Chloride (98-107) mmol/L Carbon Dioxide (22-30) mmol/L BUN 19 H (7-17) mg/dL Glucose 112 H (74-99) mg/dL POC Glucose (mg/dL) 103 H 111 H (75-99) mg/dL Total Protein 5.2 L (6.3-8.2) g/dL Albumin 3.0 L (3.5-5.0) g/dL Assessment and Plan Assessment: #1 fall with left hip intertrochanteric fracture patient is admitted to orthopedic surgery for possible surgical intervention #2 underlying the use of blood thinner Plavix patient stated that she took a pill on 10/20/2017 in a.m. she also took aspirin 81 mg at the same time. This would increase the risk of bleeding, will defer to orthopedic protocols to assess if platelet transfusion is necessary, or delay in surgery is necessary to avoid excessive bleeding. Per family patient was on Plavix for strokes. Per family patient has not taken Plavix since August 29 but the patient did state yesterday that she had taken it in the AM of 10/20. #3 hypertension blood pressure is elevated at this time will resume lisinopril 5 mg by mouth daily Will also add enalapril IV as needed #4 underlying history of depression maintained on Prozac continue #5 underlying history of hyperlipidemia maintained on Lipitor continue #6 underlying history of dementia maintained on Aricept #8 bradycardia. Nursing staff patient's heart rate 52 this A.M. cardiology consult has been placed and patient placed on telemetry. Medication were reviewed and reordered this time we are keeping Plavix and aspirin on hold Will follow during this hospitalization for medical management I performed an examination of the patient and discussed their management with the Nurse Practitioner. I have reviewed the Nurse Practitioner's notes and agree with the documented findings and plan of care
[2017-10-21] MEDS: MORPHINE SULFATE 4 MG/ML SYRINGE IV PRN (11:29)
[2017-10-21 12:08] LABS: Basophils % (A) 0 %; Eosinophils % (A) 0 %; HCT 31.1 % (34.0-46.0); Lymphocytes # (A) 1.2 k/uL (1.0-4.8); Lymphocytes % (A) 12 %; MCH 31.4 pg (25.0-35.0); MCHC 31.1 g/dL (31.0-37.0); Macrocytosis Slight; Mean Platelet Volume 8.6; Monocytes # (A) 0.6 k/uL (0-1.0); Monocytes % (A) 6 %; Neutrophils % (A) 80 %; Platelet Count 224 k/uL (150-450); RBC 3.08 m/uL (3.80-5.40); RDW 14.1 % (11.5-15.5)
[2017-10-21 12:11] LABS: HGB 9.7 gm/dL (11.4-16.0)
[2017-10-21 12:26] LABS: Hemoglobin A1C 5.5 % (4.0-6.0)
[2017-10-21] MEDS: CHOLECALCIFEROL 1,000 UNIT TAB PO SCH (12:28)
--- NOTE | 2017-10-21 15:46 | P.CRDCN ---
History of Present Illness History of present illness: Mrs. Hyde is a pleasant 82-year-old female past medical history significant for diabetes mellitus, hypertension, dyslipidemia, gerd and TIA. We have been asked to see her in consultation for sinus bradycardia. She follows with Dr. Hargrove in the office. She states she slipped on a wet bathroom floor yesterday landing on her left side. X-ray of the hip and pelvis indicate an inter-trochanteric fracture of the left hip with moderate angulation and foreshortening. She has been seen in consultation by orthopedics and the plan is for surgical intervention with an ORIF with dynamic hip screw. She is seen resting comfortably in bed in no acute distress. She denies chest pain, shortness of breath, dizziness, palpitations, nausea, vomiting or diaphoresis. She states it was a simple slip and fall after she had washed the bathroom floor and walked him with bare feet. She denies having any anginal type symptoms prior to her thereafter the event. She also denies any recent symptoms of PND, orthopnea or shortness of breath with exertion. EKG reveals sinus bradycardia heart rate 56 non-specific changes. Chest xray negative for an acute cardiopulmonary process. Laboratory data reviewed, hemoglobin 9.7, down from 11.6 on admission, platelets 224, sodium 135, potassium 4.4, creatinine 0.71, TSH 1.49. Current cardiac medications include aspirin 81 mg daily, atorvastatin 20 mg daily and lisinopril 5 mg daily. Plavix had been discontinued in August [address] Hargrove. Most recent stress test with Lexiscan stress test performed in the office July 2017 was negative for reversible cardiac ischemia. Most recent echocardiogram January 2017 reveals preserved left ventricular systolic function with ejection fraction 50-55% with severely dilated left atrium. Review of Systems At the time of my exam: CONSTITUTIONAL: Denies fever. Denies chills. EYES: Denies blurred vision. Denies vision changes. Denies eye pain. EARS, NOSE, MOUTH & THROAT: Denies headache. Denies sore throat. Denies ear pain. CARDIOVASCULAR: Denies chest pain. Denies shortness of breath. Denies orthopnea. Denies PND. Denies palpitations. RESPIRATORY: Denies cough. GASTROINTESTINAL: Denies abdominal pain. Denies diarrhea. Denies constipation. Denies nausea. Denies vomiting. MUSCULOSKELETAL: Denies myalgias. INTEGUMENTARY: Denies pruitis. Denies rash. NEUROLOGIC: Denies numbness. Denies tingling. Denies weakness. PSYCHIATRIC: Denies anxiety. Denies depression. ENDOCRINE: Denies fatigue. Denies weight change. Denies polydipsia. Denies polyurina. GENITOURINARY: Denies burning, hematuria or urgency with micturation. HEMATOLOGIC: Denies history of anemia. Denies bleeding. Past Medical History Past Medical History: Cancer, CVA/TIA, Diabetes Mellitus, GERD/Reflux, Hyperlipidemia, Hypertension, Osteoarthritis (OA), Thyroid Disorder Additional Past Medical History / Comment(s): Other HX: Diabetes-pt taken off meds, hyperlipidemia-pt no longer on meds, htn-meds tapered down, ARTHRITIS, BACK PAIN, SKIN CA, CVA alittle generalized weakness residual, TIA APRIL 2013 ( pt/francisco j think she has a couple), irregular heart beat at times, bradycardia at times. History of Any Multi-Drug Resistant Organisms: None Reported Past Surgical History: Hysterectomy Additional Past Surgical History / Comment(s): colonoscopies with polypectomy- benign. Patient had epidural in lumbar spine on 01-07-17. Past Anesthesia/Blood Transfusion Reactions: No Reported Reaction Past Psychological History: Anxiety, Depression Additional Psychological History / Comment(s): Pt's daugther lives with pt. PT ambulates with cane and walker and a walk in tub. Daugther helps her by getting things set up in the bathroom. Pt performs ADLs mostly herself with francisco j on stand-by. Pt does not drive-daugther takes to appts. Smoking Status: Never smoker Past Alcohol Use History: None Reported Past Drug Use History: None Reported - Past Family History Father Family Medical History: Coronary Artery Disease (CAD), Myocardial Infarction (SD ) Additional Family Medical History / Comment(s): Father of SD-pt unsure what age,. Mother Family Medical History: CVA/TIA Medications and Allergies Home Medications Medication Instructions Recorded Confirmed Type Cholecalciferol [Vitamin D3] 1,000 unit PO DAILY 10/02/13 10/20/17 History FLUoxetine HCL [PROzac] 40 mg PO DAILY 10/02/13 10/20/17 History Levothyroxine Sodium [Synthroid] 50 mcg PO DAILY 10/02/13 10/20/17 History Aspirin EC [Ecotrin Low Dose] 81 mg PO DAILY 12/23/15 10/20/17 History Atorvastatin [Lipitor] 20 mg PO HS 12/23/15 10/20/17 History Timolol Maleate 1 drop BOTH EYES QAM 12/23/15 10/20/17 History rOPINIRole HCL [Requip] 3 mg PO HS 12/23/15 10/20/17 History Omeprazole [PriLOSEC] 40 mg PO BID 01/28/17 10/20/17 History ALPRAZolam [Xanax] 0.125 mg PO HS PRN #20 tablet 02/01/17 10/20/17 Rx Donepezil HCl [Aricept] 5 mg PO HS 10/15/17 10/20/17 History Clopidogrel [Plavix] 75 mg PO DAILY 10/20/17 10/21/17 History Diclofenac Sodium [Voltaren Gel] 2 gram TOPICAL BID PRN 10/20/17 10/20/17 History Lisinopril [Prinivil] 5 mg PO DAILY 10/20/17 10/20/17 History Allergies Allergy/AdvReac Type Severity Reaction Status Date / Time No Known Allergies Allergy Verified 10/20/17 12:44 Physical Exam Vitals: Vital Signs Temp Pulse Pulse Resp BP BP Pulse Ox 10/21/17 03:40 16 10/20/17 23:49 98.5 F 60 16 127/65 99 10/20/17 19:50 60 16 10/20/17 19:41 97.1 F L 60 18 120/62 99 10/20/17 17:22 61 18 144/64 10/20/17 15:49 98.3 F 62 16 202/80 100 10/20/17 15:30 97.8 F 58 L 16 172/70 99 Intake and Output 10/20/17 10/21/17 10/21/17 22:59 06:59 14:59 Intake Total 1140 Output Total 850 300 Balance 290 -300 Intake: Oral 1140 Output: Urine 850 300 Other: Voiding Method Indwelling Catheter Blood pressure 144/81 heart rate 56 afebrile maintaining oxygen saturation on room air GENERAL: This is a 82-year-old female in no apparent distress at the time of my examination. HEENT: Head is atraumatic, normocephalic. Pupils are equal, round. Sclerae anicteric. Conjunctivae are clear. Mucous membranes of the mouth are moist. Neck is supple. There is no jugular venous distention. No carotid bruit is heard. LUNGS: Clear to auscultation no wheezes, rales or rhonchi. No chest wall tenderness is noted on palpation or with deep breathing. HEART: Regular rate and rhythm without murmurs, rubs or gallops. S1 and S2 heard. ABDOMEN: Soft, nontender. Bowel sounds are heard. No organomegaly noted. EXTREMITIES: No evidence of peripheral edema and no calf tenderness noted. VASCULAR: Radial and dorsalis pedis pulses palpated, no evidence of clubbing. NEUROLOGIC: Patient is awake, alert and oriented x3. Results 10/21/17 07:05 10/21/17 07:05 Cardiac Enzymes 10/20/17 10/21/17 Range/Units 14:30 07:05 AST 18 15 (14-36) U/L Coagulation 10/20/17 Range/Units 14:30 PT 9.6 (9.0-12.0) sec APTT 21.0 L (22.0-30.0) sec CBC 10/20/17 10/21/17 Range/Units 14:30 07:05 WBC 9.1 10.0 (3.8-10.6) k/uL RBC 3.55 L 3.08 L (3.80-5.40) m/uL Hgb 11.6 9.7 L D (11.4-16.0) gm/dL Hct 34.8 31.1 L (34.0-46.0) % Plt Count 256 224 (150-450) k/uL Comprehensive Metabolic Panel 10/20/17 10/21/17 Range/Units 14:30 07:05 Sodium 138 135 L (137-145) mmol/L Potassium 4.0 4.4 (3.5-5.1) mmol/L Chloride 110 H 106 (98-107) mmol/L Carbon Dioxide 19 L 26 (22-30) mmol/L BUN 18 H 19 H (7-17) mg/dL Creatinine 0.74 0.71 (0.52-1.04) mg/dL Glucose 107 H 112 H (74-99) mg/dL Calcium 9.3 8.8 (8.4-10.2) mg/dL AST 18 15 (14-36) U/L ALT 28 24 (9-52) U/L Alkaline Phosphatase 63 54 (38-126) U/L Total Protein 6.1 L 5.2 L (6.3-8.2) g/dL Albumin 3.7 3.0 L (3.5-5.0) g/dL Current Medications Generic Name Dose Route Start Last Admin Trade Name Freq PRN Reason Stop Dose Admin Acetaminophen 650 mg 10/20/17 14:07 Tylenol Tab PO Q6HR PRN Mild Pain or Fever > 100.5 Hydrocodone Bitart/Acetaminophen 1 each 10/20/17 14:07 10/21/17 09:35 Cheyenne 5-325 PO 1 each Q4HR PRN Administration Moderate Pain Alprazolam 0.125 mg 10/20/17 17:23 Xanax PO HS PRN Anxiety Atorvastatin Calcium 20 mg 10/20/17 21:00 10/20/17 22:00 Lipitor PO 20 mg HS RUFINA Administration Cholecalciferol 1,000 unit 10/21/17 12:00 10/21/17 12:28 Vitamin D3 PO 1,000 unit DAILY@1200 [facility] Administration Diclofenac Sodium 2 gm 10/20/17 21:56 10/21/17 08:20 Voltaren Gel TOPICAL 2 gm Q4H PRN Administration Pain Scale 6 to 10 Donepezil HCl 5 mg 10/20/17 21:00 10/20/17 22:00 Aricept PO 5 mg HS RUFINA Administration Enalaprilat 1.25 mg 10/20/17 17:44 Vasotec IVP Q4HR PRN Blood Pressure - High Fluoxetine HCl 40 mg 10/21/17 09:00 10/21/17 08:20 Prozac PO 40 mg DAILY RUFINA Administration Levothyroxine Sodium 50 mcg 10/21/17 06:30 10/21/17 05:32 Synthroid PO 50 mcg DAILY@0630 RUFINA Administration Lisinopril 5 mg 10/20/17 17:30 10/21/17 08:20 Zestril PO 5 mg DAILY RUFINA Administration Morphine Sulfate 4 mg 10/20/17 14:07 10/21/17 11:29 Morphine Sulfate (Inj) IV 4 mg Q4HR PRN Administration Severe Pain Naloxone HCl 0.2 mg 10/20/17 14:07 Narcan IV Q2M PRN Opioid Reversal Ondansetron HCl 4 mg 10/20/17 14:07 10/20/17 14:41 Zofran IVP 4 mg Q8HR PRN Administration Nausea And Vomiting Pantoprazole Sodium 40 mg 10/20/17 17:30 10/21/17 08:20 Protonix PO 40 mg AC-BID RUFINA Administration Ropinirole HCl 3 mg 10/20/17 21:00 10/20/17 22:01 Requip PO 3 mg HS RUFINA Administration Timolol Maleate 1 drops 10/20/17 17:30 10/21/17 09:36 Timoptic BOTH EYES 1 drops QAM RUFINA Administration Intake and Output 10/20/17 10/21/17 10/21/17 22:59 06:59 14:59 Intake Total 1140 Output Total 850 300 Balance 290 -300 Intake: Oral 1140 Output: Urine 850 300 Other: Voiding Method Indwelling Catheter 10/21/17 07:05 10/21/17 07:05 Assessment and Plan Assessment: ASSESSMENT Left hip fracture Hypertension Dyslipidemia Diabetes mellitus History of TIA, plavix discontinued August 2017 History of sinus bradycardia, asymptomatic. PLAN Heart rate maintained between 56-62 with no symptoms of dizziness, palpitations , chest pain or shortness of breath. Obtain 2D echocardiogram and doppler study to assess cardiac structure and function. Continue atorvastatin and lisinopril as previously ordered. Stable from a cardiac perspective. Nurse Practitioner note has been reviewed, I agree with a documented findings and plan of care. Patient was seen and examined.
[2017-10-21] MEDS ORDERED: MIDAZOLAM 2 MG/2 ML VIAL IV PRN (18:57)
[2017-10-21] MEDS ORDERED: LIDOCAINE 1% 20 ML VIAL (10MG/ML) FOR IV START INTRADERMA PRN (18:57)
[2017-10-21] MEDS ORDERED: fentaNYL (PF) 50 MCG/ML 2 ML AMP IV PRN (18:57)
[2017-10-21] MEDS ORDERED: DEXAMETHASONE SOD PHOSPHATE 10 MG/ML 1 ML VIAL IV ONE (18:57)
[2017-10-21 19:47] LABS: Glucose,Whole Blood 133 mg/dL (75-99)
[2017-10-21] MEDS: DONEPEZIL 5 MG TAB PO SCH (20:56)
[2017-10-21] MEDS: ONDANSETRON 4 MG/2 ML VIAL IVP ONE (20:57)
[2017-10-21] MEDS: LACTATED RINGERS 1,000 ML IV SCH (20:57)
[2017-10-21] MEDS: ATORVASTATIN 20 MG TAB PO SCH (20:57)
[2017-10-22] MEDS: LEVOTHYROXINE 50 MCG TAB PO SCH (05:27)
[2017-10-22 07:38] LABS: Basophils % (A) 0 %; Eosinophils % (A) 0 %; HCT 32.5 % (34.0-46.0); HGB 10.7 gm/dL (11.4-16.0); Lymphocytes # (A) 0.7 k/uL (1.0-4.8); Lymphocytes % (A) 8 %; MCH 32.7 pg (25.0-35.0); MCHC 32.9 g/dL (31.0-37.0); MCV 99.6 fL (80.0-100.0); Mean Platelet Volume 7.3; Monocytes # (A) 0.4 k/uL (0-1.0); Monocytes % (A) 5 %; Neutrophils # (A) 7.1 k/uL (1.3-7.7); Neutrophils % (A) 86 %; Platelet Count 244 k/uL (150-450); RBC 3.26 m/uL (3.80-5.40); WBC 8.3 k/uL (3.8-10.6)
[2017-10-22 07:52] LABS: Calcium 9.4 mg/dL (8.4-10.2); Potassium 4.3 mmol/L (3.5-5.1)
[2017-10-22] MEDS: LISINOPRIL 5 MG TAB PO SCH (08:04)
[2017-10-22] MEDS ORDERED: IV FLUID CONTINUATION 1,000 ML IV ONE (09:44)
[2017-10-22] MEDS: FLUoxetine HCL 20 MG CAP PO SCH (09:55)
[2017-10-22] MEDS: TIMOLOL 0.25% OPHTH DROPS 5 ML BTL BOTH EYES SCH (09:55)
[2017-10-22] MEDS: PANTOPRAZOLE 40 MG TABLET PO SCH ×2 (09:55→17:30)
--- NOTE | 2017-10-22 10:37 | ECHOF ---
Referral Reason:pre-op MEASUREMENTS -------- HEIGHT: 154.9 cm WEIGHT: 49.0 kg BP: 127/65 IVSd: 1.1 cm (0.6 - 1.1) LVIDd: 3.8 cm (3.9 - 5.3) LVPWd: 1.1 cm (0.6 - 1.1) IVSs: 1.0 cm LVIDs: 2.5 cm LVPWs: 1.1 cm LAESV Index (A-L): 51.93 ml/m Ao Diam: 3.0 cm (2.0 - 3.7) AV Cusp: 1.1 cm (1.5 - 2.6) LA Diam: 3.1 cm (2.7 - 3.8) MV E Abdoulaye: 1.27 m/s MV DecT: 280 ms MV A Abdoulaye: 1.21 m/s MV E/A Ratio: 1.05 AV maxP.68 mmHg AV meanP.26 mmHg RAP: 5.00 mmHg RVSP: 44.59 mmHg FINDINGS -------- Resting bradycardia (HR<60bpm). This was a technically adequate study. The left ventricular size is normal. There is mild concentric left ventricular hypertrophy. Overa ll left ventricular systolic function is normal with, an EF between 55 - 60 %. The right ventricle is normal in size and function. LA is severely dilated >40 ml/m2 The right atrium is normal in size. There is moderate aortic valve sclerosis. There is no evidence of aortic regurgitation. There is mild aortic stenosis present. Peak/mean gradient across the Aortic Valve is 20.68mmHg / 11.26mmHg. The mitral valve leaflets are mildly thickened. Mild mitral annular calcification present. Mild m itral regurgitation is present. Mild tricuspid regurgitation present. There is mild pulmonary hypertension. The right ventricular systolic pressure, as measured by Doppler, is 44.59mmHg. The pulmonic valve was not well visualized. The aortic root size is normal. Normal inferior vena cava with normal inspiratory collapse consistent with estimated right atrial pre ssure of 5 mmHg. There is no pericardial effusion. CONCLUSIONS -------- 1. Resting bradycardia (HR<60bpm). 2. This was a technically adequate study. 3. The left ventricular size is normal. 4. There is mild concentric left ventricular hypertrophy. 5. Overall left ventricular systolic function is normal with, an EF between 55 - 60 %. 6. LA is severely dilated >40 ml/m2 7. There is moderate aortic valve sclerosis. 8. There is mild aortic stenosis present. 9. Peak/mean gradient across the Aortic Valve is 20.68mmHg / 11.26mmHg. 10. The mitral valve leaflets are mildly thickened. 11. Mild mitral annular calcification present. 12. Mild mitral regurgitation is present. 13. Mild tricuspid regurgitation present. 14. There is mild pulmonary hypertension. 15. The right ventricular systolic pressure, as measured by Doppler, is 44.59mmHg. 16. The pulmonic valve was not well visualized. 17. The aortic root size is normal. 18. There is no pericardial effusion. REGISTERED NURSE NURSERY: Jayson Morejon RDCS
[2017-10-22] MEDS: ONDANSETRON 4 MG/2 ML VIAL IVP ONE (10:40)
[2017-10-22] MEDS: LACTATED RINGERS 1,000 ML IV SCH ×3 (10:49→21:11)
[2017-10-22] MEDS ORDERED: ePHEDrine SULFATE/0.9% NACL/PF 50 MG/5 ML SYRINGE IV ONE (10:52)
[2017-10-22] MEDS ORDERED: NEOSTIGMINE 1 MG/ML 10 ML VIAL ONE (10:52)
[2017-10-22] MEDS ORDERED: ROCURONIUM BROMIDE 10 MG/ML 10 ML VIAL IV ONE (10:52)
[2017-10-22] MEDS ORDERED: fentaNYL (PF) 50 MCG/ML 2 ML AMP ONE (10:52)
[2017-10-22] MEDS ORDERED: LIDOCAINE 1% INJ 10MG/ML (20 ML MDV) ONE (10:52)
[2017-10-22] MEDS ORDERED: GLYCOPYRROLATE 0.2 MG/ML 2 ML VIAL ONE (10:52)
[2017-10-22] MEDS ORDERED: PROPOFOL 10 MG/ML 20 ML VIAL IV ONE (10:52)
[2017-10-22] MEDS ORDERED: SUCCINYLCHOLINE CHLORIDE 100 MG/5 ML SYR IV ONE (10:52)
[2017-10-22] MEDS ORDERED: ceFAZolin 1,000 MG in SODIUM CHLORIDE 0.9% 1,000 ML IRRIGATION ONE (11:39)
[2017-10-22] MEDS ORDERED: SODIUM CHLORIDE 0.9% 100 ML with ceFAZolin 2,000 MG IV ONE ×2 (11:41)
[2017-10-22] MEDS ORDERED: LACTATED RINGERS 1,000 ML IV ONE (12:17)
[2017-10-22] MEDS: CHOLECALCIFEROL 1,000 UNIT TAB PO SCH (12:25)
--- NOTE | 2017-10-22 12:33 | P.PN ---
Subjective Mrs. Hyde is seen and examined resting comfortably in bed. Telemetry tracings indicate a episode of atrial tachycardia this morning with rate of around 150. This lasted less than 20 seconds. She was asymptomatic at the time. Echocardiogram performed reveals preserved LV systolic function with EF 55-60%, moderate AV sclerosis with mean gradient 11.26 mmHg, mild MR, mild TR and pulmonary hypertension with RVSP 44.59 mmHg. globin 10.7, platelets 244, sodium 134, potassium 4.3, creatinine 0.8. Blood pressure 179/67 heart rate 51 afebrile maintaining oxygen saturation on room air. She denies symptoms of chest pain, shortness of breath, palpitations, nausea, vomiting or diaphoresis. Surgery is planned for today. Family is at the bedside. Objective - Vital Signs Vital signs: Vital Signs Temp 99.4 F 10/22/17 09:50 Pulse 55 L 10/22/17 09:50 Resp 16 10/22/17 09:50 BP 199/87 10/22/17 09:50 Pulse Ox 97 10/22/17 09:50 Intake & Output 10/21/17 10/22/17 10/22/17 18:59 06:59 18:59 Intake Total 240 950 300 Output Total 655 700 700 Balance -415 250 -400 Intake: IV 300 Intake, IV Titration 950 Amount Lactated Ringers 1,000 ml 950 @ 20 mls/hr IV .Q24H [facility] Rx#:[id number] Oral 240 Output: Urine 655 700 700 Uretheral (Marlow) 655 Other: Voiding Method Indwelling Catheter Indwelling Catheter Indwelling Catheter - Exam GENERAL: Well-appearing, well-nourished and in no acute distress. NECK: Supple without JVD or thyromegaly. LUNGS: Breath sounds clear to auscultation bilaterally. Respiration equal and unlabored. No wheezes, rales or rhonchi. HEART: Regular rate and rhythm with systolic ejection murmur at the base, no rubs or gallops. S1 and S2 heard. EXTREMITIES: Normal range of motion, no edema. No clubbing or cyanosis. Peripheral pulses intact. - Labs CBC & Chem 7: 10/22/17 06:59 10/22/17 06:59 Labs: Abnormal Lab Results - Last 24 Hours (Table) 07/16/18 07/17/18 07/17/18 Range/Units 19:44 06:59 06:59 RBC 3.26 L (3.80-5.40) m/uL Hgb 10.7 L (11.4-16.0) gm/dL Hct 32.5 L (34.0-46.0) % Lymphocytes # 0.7 L (1.0-4.8) k/uL Sodium 134 L (137-145) mmol/L BUN 19 H (7-17) mg/dL Glucose 146 H (74-99) mg/dL POC Glucose (mg/dL) 133 H (75-99) mg/dL Assessment and Plan Assessment: ASSESSMENT Left hip fracture Hypertension, uncontrolled Dyslipidemia Diabetes mellitus History of TIA, plavix discontinued August 2017 History of sinus bradycardia, asymptomatic. Aortic valve sclerosis with stenosis PLAN Increase lisinopril to 10mg BID. May consider adding norvasc if blood pressure remains high. Hemodynamically stable with no overt heart failure or angina. Appropriate risk for surgical intervention. Recommend cautious fluid administration and optimal blood pressure control. We will continue to follow her post-operatively. Nurse Practitioner note has been reviewed, I agree with a documented findings and plan of care. Patient was seen and examined.
[2017-10-22] MEDS ORDERED: hydrOXYzine PAMOATE 25 MG CAP PO PRN (12:45)
[2017-10-22] MEDS ORDERED: HYDROmorphone 0.5 MG/0.5 ML SYRINGE IVP PRN ×3 (12:45)
[2017-10-22] MEDS ORDERED: MAGNESIUM HYDROXIDE 2,400 MG/10 ML CUP PO PRN (12:45)
[2017-10-22] MEDS ORDERED: TEMAZEPAM 15 MG CAP PO PRN (12:45)
--- NOTE | 2017-10-22 12:55 | FL ---
Fluoroscopy HISTORY: Hip arthroplasty 20 seconds fluoroscopy time supplied to the referring clinician. 3 intraoperative C-arm images docum ent the procedure. See dictated report from orthopedic surgery.
[2017-10-22] MEDS ORDERED: fentaNYL (PF) 50 MCG/ML 2 ML AMP IVP ONE (13:09)
--- NOTE | 2017-10-22 13:14 | XR ---
Limited left hip HISTORY: Open reduction internal fixation Correlation to prior exam 10/20/2017 There is been interval open reduction internal fixation for proximal left femoral fracture. Lucency p resent in the soft tissues compatible with postop state. There is near anatomic alignment. Bone copper miner blasting alization is reduced which could limit sensitivity. IMPRESSION: Orthopedic follow-up
--- NOTE | 2017-10-22 15:22 | P.PN ---
Subjective Progress Note Date: 10/22/17 Prerna Diego is an 82-year-old female patient of Dr. Pimentel who presented to [facility] emergency room after sustaining a fall and having pain in the left hip area. Patient was evaluated in the emergency room and had an x-ray of the left hip which revealed evidence of intertrochanteric fracture of the left hip. She was admitted under Dr. Pepper service, medical consultation was requested for surgical clearance and for medical management while hospitalized. Patient was interviewed and examined on the surgical floor she is alert and oriented 3 in no apparent distress she states that she slipped and fell while she was cleaning, she denies having any loss of consciousness, she denies having any symptoms prior to falling there was no dizziness no chest pain and no shortness of breath. Patient has a bruise on the left frontal area but she states that was from a fall more than a week ago she denies any head trauma at this time. 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 10/21/2017 patient currently resting in bed with some complaint of left hip pain. Family at bedside. Per family, patient has not been on Plavix since August 29. They also state patient was taking the plavix for strokes. Due to conflicting information in regards to when the Plavix has been taken, medical clearance is on hold at this time due to patient stating yesterday that she had taken her Plavix in the AM and the potential increase risk of bleeding with surgery. Per nursing staff patient's heart rate this AM was 52 BPM. Orders placed for patient to be on telemetry and for a cardiology consultation. Patient denies chest pain or shortness of breath. 10/22/2017 patient currently in bed post open reduction and internal fixation of the left hip. Patient has mild pain left hip site. Cardiology was consulted patient having bradycardia is today 2-D echo was completed and interpreted by cardiology. Clarification on when patient took Plavix was determined by speaking with primary care provider Dr. Pimentel. Was informed that patient has been off Plavix since August 29 and has not received any refills. Lisinopril 10 mg was added per cardiology for hypertension. She denies chest pain or shortness of breath at this time. Objective - Vital Signs Vital signs: Vital Signs Temp 96.8 F L 10/22/17 12:45 Pulse 42 L 10/22/17 13:00 Resp 15 10/22/17 13:00 BP 172/71 10/22/17 13:00 Pulse Ox 95 10/22/17 13:00 Intake & Output 10/21/17 10/22/17 10/22/17 18:59 06:59 18:59 Intake Total 147 899 2866 Output Total 655 700 900 Balance -415 250 401 Intake: IV 1301 Intake, IV Titration 950 Amount Lactated Ringers 1,000 ml 950 @ 20 mls/hr IV .Q24H [facility] Rx#:[id number] Oral 240 Output: Urine 655 700 800 Uretheral (Marlow) 655 Estimated Blood Loss 100 Other: Voiding Method Indwelling Catheter Indwelling Catheter Indwelling Catheter - Exam Head normocephalic Neck supple Lungs clear to auscultation bilaterally no wheezing or crackles Heart bradycardia regular rate and rhythm S1-S2, no rub or gallop Abdomen is soft nontender nondistended positive bowel sounds no hepatosplenomegaly Extremities no edema. Left hip tenderness and pain Neuro alert and orientated to 3 - Labs CBC & Chem 7: 10/22/17 06:59 10/22/17 06:59 Labs: Abnormal Lab Results - Last 24 Hours (Table) 10/21/17 10/22/17 10/22/17 Range/Units 19:44 06:59 06:59 RBC 3.26 L (3.80-5.40) m/uL Hgb 10.7 L (11.4-16.0) gm/dL Hct 32.5 L (34.0-46.0) % Lymphocytes # 0.7 L (1.0-4.8) k/uL Sodium 134 L (137-145) mmol/L BUN 19 H (7-17) mg/dL Glucose 146 H (74-99) mg/dL POC Glucose (mg/dL) 133 H (75-99) mg/dL Assessment and Plan Assessment: #1 fall with left hip intertrochanteric fracture patient is admitted to orthopedic surgery for possible surgical intervention. Patient is status post open reduction and internal fixation of the left hip with Dr. Pepper. #2 underlying the use of blood thinner Plavix patient stated that she took a pill on 10/20/2017 in a.m. she also took aspirin 81 mg at the same time. This would increase the risk of bleeding, will defer to orthopedic protocols to assess if platelet transfusion is necessary, or delay in surgery is necessary to avoid excessive bleeding. Per family patient was on Plavix for strokes. Per family patient has not taken Plavix since August 29 but the patient did state yesterday that she had taken it in the AM of 10/20. Indication was made with Dr. Pimentel. Patient has been off of Plavix since August 29 and has not received any refills. #3 hypertension blood pressure is elevated at this time will resume lisinopril 5 mg by mouth daily Will also add enalapril IV as needed. Cardiology has increased lisinopril to 10 mg. #4 underlying history of depression maintained on Prozac continue #5 underlying history of hyperlipidemia maintained on Lipitor #6 underlying history of dementia maintained on Aricept #8 bradycardia. Nursing staff patient's heart rate 52 this A.M. cardiology consult has been placed and patient placed on telemetry. 2-D echo has been performed and EF of 55-60%. Cardiology following Will follow during this hospitalization for medical management I performed an examination of the patient and discussed their management with the Nurse Practitioner. I have reviewed the Nurse Practitioner's notes and agree with the documented findings and plan of care
[2017-10-22 16:54] LABS: Glucose,Whole Blood 98 mg/dL (75-99)
[2017-10-22] MEDS: HYDROcodone/APAP 5-325MG 1 EACH TAB PO PRN ×2 (17:31→22:22)
[2017-10-22] MEDS: ceFAZolin IN SWFI 2 GM/20 ML SYRINGE IVP SCH (17:31)
[2017-10-22 19:47] LABS: Glucose,Whole Blood 171 mg/dL (75-99)
[2017-10-22] MEDS: ATORVASTATIN 20 MG TAB PO SCH (21:12)
[2017-10-22] MEDS: SENNOSIDES-DOCUSATE SODIUM 1 EACH TAB PO SCH (21:12)
[2017-10-22] MEDS: DONEPEZIL 5 MG TAB PO SCH (21:12)
[2017-10-23] MEDS: ceFAZolin IN SWFI 2 GM/20 ML SYRINGE IVP SCH (04:56)
[2017-10-23] MEDS: LACTATED RINGERS 1,000 ML IV SCH ×3 (04:56→20:30)
[2017-10-23] MEDS: LEVOTHYROXINE 50 MCG TAB PO SCH (05:49)
[2017-10-23 06:53] LABS: Glucose,Whole Blood 156 mg/dL (75-99)
[2017-10-23 08:05] LABS: Basophils % (A) 0 %; Eosinophils % (A) 0 %; HCT 24.8 % (34.0-46.0); Lymphocytes % (A) 11 %; MCH 31.8 pg (25.0-35.0); MCHC 31.8 g/dL (31.0-37.0); MCV 100.2 fL (80.0-100.0); Macrocytosis Slight; Mean Platelet Volume 7.5; Monocytes # (A) 0.7 k/uL (0-1.0); Monocytes % (A) 7 %; Neutrophils # (A) 7.2 k/uL (1.3-7.7); Neutrophils % (A) 80 %; Platelet Count 203 k/uL (150-450); RBC 2.47 m/uL (3.80-5.40); RDW 14.2 % (11.5-15.5)
[2017-10-23 08:10] LABS: HGB 7.9 gm/dL (11.4-16.0)
[2017-10-23 08:42] LABS: Calcium 8.3 mg/dL (8.4-10.2); Potassium 4.2 mmol/L (3.5-5.1)
--- NOTE | 2017-10-23 08:43 | P.PN ---
Subjective Progress Note Date: 10/23/17 Principal diagnosis: Status post ORIF left hip This is a 82 year-old female post ORIF left hip. This is post-op day 1. The patient was evaluated at the bedside today. The patient denies nausea, vomiting , abdominal pain, shortness of breath, and chest pain this morning. She states her pain is controlled at this time. The patient has not been up with physical therapy. Objective - Vital Signs Vital signs: Vital Signs Temp 97.6 F 10/22/17 19:15 Pulse 58 L 10/22/17 19:15 Resp 18 10/22/17 19:15 BP 113/67 10/22/17 19:15 Pulse Ox 98 10/22/17 19:15 Intake & Output 10/22/17 10/23/17 10/23/17 18:59 06:59 18:59 Intake Total 1381 640 Output Total 900 400 Balance 481 240 Intake: IV 1301 Intake, IV Titration 80 640 Amount Lactated Ringers 1,000 ml 80 640 @ 80 mls/hr IV .[id number] Rx#:[id number] Output: Urine 800 400 Estimated Blood Loss 100 Other: Voiding Method Indwelling Catheter Indwelling Catheter - Exam The patient does not appear in acute distress. Alert and orientated x3. Dressing is clean dry and intact. Incision appears fine with no erythema or active drainage. Calf is soft and nontender. Good foot and ankle motion without difficulty. Sensation and circulatory status is intact. - Labs CBC & Chem 7: 10/23/17 07:10 10/22/17 06:59 Labs: Abnormal Lab Results - Last 24 Hours (Table) 10/22/17 10/23/17 10/23/17 Range/Units 19:45 06:50 07:10 RBC 2.47 L (3.80-5.40) m/uL Hgb 7.9 L D (11.4-16.0) gm/dL Hct 24.8 L (34.0-46.0) % MCV 100.2 H (80.0-100.0) fL POC Glucose (mg/dL) 171 H 156 H (75-99) mg/dL Assessment and Plan (1) Closed fracture of left hip Current Visit: Yes Status: Acute Code(s): S72.002A - FRACTURE OF UNSP PART OF NECK OF LEFT FEMUR, INIT SNOMED Code(s): 504210234 (2) Fall Current Visit: Yes Status: Acute Code(s): W19.XXXA - UNSPECIFIED FALL, INITIAL ENCOUNTER SNOMED Code(s): 9954286 (3) Status post hip surgery Current Visit: Yes Status: Acute Code(s): Z98.890 - OTHER SPECIFIED POSTPROCEDURAL STATES SNOMED Code(s): 098330264 Plan: 1. Continue pain control 2. Anticoagulation by internal medicine 3. Start physical therapy and ambulation today, non-weightbearing left leg 4. Apply abductor pillow 5. Anticipate discharge to skilled rehab, likely on Saturday
[2017-10-23] MEDS ORDERED: LISINOPRIL 20 MG TAB PO SCH (09:00)
[2017-10-23] MEDS: TIMOLOL 0.25% OPHTH DROPS 5 ML BTL BOTH EYES SCH (09:20)
[2017-10-23] MEDS: LISINOPRIL 10 MG TAB PO SCH (09:20)
[2017-10-23] MEDS: FLUoxetine HCL 20 MG CAP PO SCH (09:20)
[2017-10-23] MEDS: PANTOPRAZOLE 40 MG TABLET PO SCH ×2 (09:20→18:09)
--- NOTE | 2017-10-23 09:27 | OP ---
OPERATIVE REPORT DATE OF PROCEDURE: 10/22/2017. SURGEON: Rajendra Pepper DO. HARDBOARD PANEL PRINTER: Mare Singer. PREOPERATIVE DIAGNOSIS: A displaced intertrochanteric fracture of the left hip. POSTOPERATIVE DIAGNOSIS: A displaced intertrochanteric fracture of the left hip. PROCEDURE PERFORMED: Open reduction internal fixation with Dynamic hip screw for displaced intertrochanteric fracture of the left hip. DESCRIPTION OF PROCEDURE: The patient was taken to the operative suite and placed in supine position. General inhalation anesthesia was performed by the department of anesthesiology. She was secured on a fracture table and appropriate reduction was carried out. X-rays were obtained and reduction was . Betadine prep was carried out over the left hip and sterile drapes applied in the usual manner. A lateral incision was developed over the proximal femur and sharp dissection through the subcutaneous tissues. Tensor fascia jenifer was incised longitudinally. The vastus lateralis was divided and periosteal elevator was utilized in reaming the and proximal . A 135 inserted in the femoral head and secured. AP and lateral projection was stable in position within the femoral head. was carried out, however, . A 7 mm compression screw was inserted into the femoral head and locked in position. X-rays were obtained. The side plate was of the screw and impacted. The compression screw was then inserted to lateral plate and . The plate was then secured to lateral femur with 2 cortical screws . X-rays were obtained throughout the procedure . The area was irrigated copiously with antibiotic solution. Vastus lateralis was then approximated with #3 Ethibond suture. The tensor fascia jenifer was approximated #3 Dexon suture in running fashion. The subcutaneous tissue was approximated with 2-0 Vicryl suture. Skin was approximated with Proximate skin clips. Betadine, Adaptic, sterile pressure dressing was applied. The patient was then transferred to the recovery room in satisfactory postop condition. GROSS PATHOLOGY: There was evidence of a displaced intertrochanteric fracture of the left hip. Estimated blood loss 50 mL. MMODL / IJN: [id number] /
[2017-10-23] MEDS: HYDROcodone/APAP 5-325MG 1 EACH TAB PO PRN ×3 (11:01→21:17)
[2017-10-23] MEDS: CHOLECALCIFEROL 1,000 UNIT TAB PO SCH (11:11)
--- NOTE | 2017-10-23 11:16 | P.PN ---
Subjective Progress Note Date: 10/23/17 Prerna Diego is an 82-year-old female patient of Dr. Pimentel who presented to [facility] emergency room after sustaining a fall and having pain in the left hip area. Patient was evaluated in the emergency room and had an x-ray of the left hip which revealed evidence of intertrochanteric fracture of the left hip. She was admitted under Dr. Pepper service, medical consultation was requested for surgical clearance and for medical management while hospitalized. Patient was interviewed and examined on the surgical floor she is alert and oriented 3 in no apparent distress she states that she slipped and fell while she was cleaning, she denies having any loss of consciousness, she denies having any symptoms prior to falling there was no dizziness no chest pain and no shortness of breath. Patient has a bruise on the left frontal area but she states that was from a fall more than a week ago she denies any head trauma at this time. Patient has known history of hypertension and hyperlipidemia she is also maintained on blood thinners aspirin and Plavix, indication for which she is not very clear, she denies having any cardiac history in the past she denies seen any bridge operator slip in the past she denies having any cardiac catheterization or stent placement, she denies having any peripheral vascular disease or having any intervention on her lower extremities, she denies having any strokes or TIAs in the past. 10/21/2017 patient currently resting in bed with some complaint of left hip pain. Family at bedside. Per family, patient has not been on Plavix since August 29. They also state patient was taking the plavix for strokes. Due to conflicting information in regards to when the Plavix has been taken, medical clearance is on hold at this time due to patient stating yesterday that she had taken her Plavix in the AM and the potential increase risk of bleeding with surgery. Per nursing staff patient's heart rate this AM was 52 BPM. Orders placed for patient to be on telemetry and for a cardiology consultation. Patient denies chest pain or shortness of breath. 10/22/2017 patient currently in bed post open reduction and internal fixation of the left hip. Patient has mild pain left hip site. Cardiology was consulted patient having bradycardia is today 2-D echo was completed and interpreted by cardiology. Clarification on when patient took Plavix was determined by speaking with primary care provider Dr. Pimentel. Was informed that patient has been off Plavix since August 29 and has not received any refills. Lisinopril 10 mg was added per cardiology for hypertension. She denies chest pain or shortness of breath at this time. On 10/23/2017 patient currently sitting up in chair. Feeling much better than she did yesterday. Patient has minimal pain to left hip site. She did have episodes of heart rate in the 40s while she was sleeping. Current heart rate 68. Cardiology is following. Case discussed with nurse in regards to DVT prophylaxis. Ortho services is requesting primary care to initiate DVT prophylaxis. Will start patient on Xeralto 10 mg daily and aspirin 81 mg. Patient's hemoglobin down to 7.7 this morning. Left hip site is clean dry and intact with no signs of hematoma. Per nursing staff and patient ther is no signs of active bleeding at this time. Will transfuse 1 unit of PRBCs. Will check stool occult. Objective - Vital Signs Vital signs: Vital Signs Temp 98.6 F 10/23/17 07:35 Pulse 68 10/23/17 07:35 Resp 18 10/23/17 07:35 BP 104/52 10/23/17 07:35 Pulse Ox 98 10/23/17 07:35 Intake & Output 10/22/17 10/23/17 10/23/17 18:59 06:59 18:59 Intake Total 1381 640 Output Total 900 400 Balance 481 240 Intake: IV 1301 Intake, IV Titration 80 640 Amount Lactated Ringers 1,000 ml 80 640 @ 80 mls/hr IV .[id number] [facility] Rx#:[id number] Output: Urine 800 400 Estimated Blood Loss 100 Other: Voiding Method Indwelling Catheter Indwelling Catheter Indwelling Catheter - Exam Head normocephalic Neck supple Lungs clear to auscultation bilaterally no wheezing or crackles Heart bradycardia regular rate and rhythm S1-S2, no rub or gallop Abdomen is soft nontender nondistended positive bowel sounds no hepatosplenomegaly Extremities no edema. Left hip tenderness and pain. Dressing clean dry and intact with no signs of hematoma Neuro alert and orientated to 3 - Labs CBC & Chem 7: 10/23/17 07:10 10/23/17 07:10 Labs: Abnormal Lab Results - Last 24 Hours (Table) 07/17/18 07/17/18 07/18/18 Range/Units 10:24 19:45 06:50 RBC (3.80-5.40) m/uL Hgb (11.4-16.0) gm/dL Hct (34.0-46.0) % MCV (80.0-100.0) fL Sodium (137-145) mmol/L BUN (7-17) mg/dL Glucose (74-99) mg/dL POC Glucose (mg/dL) 171 H 156 H (75-99) mg/dL Calcium (8.4-10.2) mg/dL Crossmatch See Detail 10/23/17 10/23/17 Range/Units 07:10 07:10 RBC 2.47 L (3.80-5.40) m/uL Hgb 7.9 L D (11.4-16.0) gm/dL Hct 24.8 L (34.0-46.0) % MCV 100.2 H (80.0-100.0) fL Sodium 132 L (137-145) mmol/L BUN 20 H (7-17) mg/dL Glucose 134 H (74-99) mg/dL POC Glucose (mg/dL) (75-99) mg/dL Calcium 8.3 L (8.4-10.2) mg/dL Crossmatch Assessment and Plan Assessment: #1 fall with left hip intertrochanteric fracture patient is admitted to orthopedic surgery for possible surgical intervention. Patient is status post open reduction and internal fixation of the left hip with Dr. Pepper. Orthostatic services requesting primary care initiate DVT prophylaxis. Xeralto 10 mg and aspirin 81 mg will be ordered. #2 underlying the use of blood thinner Plavix patient stated that she took a pill on 10/20/2017 in a.m. she also took aspirin 81 mg at the same time. This would increase the risk of bleeding, will defer to orthopedic protocols to assess if platelet transfusion is necessary, or delay in surgery is necessary to avoid excessive bleeding. Per family patient was on Plavix for strokes. Per family patient has not taken Plavix since August 29 but the patient did state yesterday that she had taken it in the AM of 10/20. Indication was made with Dr. Pimentel. Patient has been off of Plavix since August 29 and has not received any refills. #3 hypertension blood pressure is elevated at this time will resume lisinopril 5 mg by mouth daily Will also add enalapril IV as needed. Cardiology has increased lisinopril to 10 mg. #4 underlying history of depression maintained on Prozac continue #5 underlying history of hyperlipidemia maintained on Lipitor #6 underlying history of dementia maintained on Aricept #8 bradycardia. Nursing staff patient's heart rate 52 this A.M. cardiology consult has been placed and patient placed on telemetry. 2-D echo has been performed and EF of 55-60%. Heart rate throughout the night in the 40s. Current heart rate 68. Cardiology is following. #9 anemia following Postoperative blood loss. Hemoglobin 7.9. Will transfuse 1 unit of packed red blood cells. Will order occult stool. Will order ferrous sulfate will continue to monitor hemoglobin closely. DVT prophylaxis xarelto. GI prophylaxis Protonix. Will follow during this hospitalization for medical management I performed an examination of the patient and discussed their management with the Nurse Practitioner. I have reviewed the Nurse Practitioner's notes and agree with the documented findings and plan of care
[2017-10-23 12:00] LABS: Glucose,Whole Blood 169 mg/dL (75-99)
[2017-10-23] MEDS: DICLOFENAC SODIUM GEL 100 GM TUBE TOPICAL PRN (12:02)
[2017-10-23 17:02] LABS: Glucose,Whole Blood 124 mg/dL (75-99)
[2017-10-23] MEDS ORDERED: HYDROmorphone 1 MG/ML 1 ML SYRINGE IVP PRN ×3 (17:28)
[2017-10-23] MEDS: RIVAROXABAN 10 MG TAB PO SCH (18:09)
[2017-10-23] MEDS: ATORVASTATIN 20 MG TAB PO SCH (20:22)
[2017-10-23] MEDS: SENNOSIDES-DOCUSATE SODIUM 1 EACH TAB PO SCH (20:22)
[2017-10-23] MEDS: DONEPEZIL 5 MG TAB PO SCH (20:22)
[2017-10-23] MEDS: FERROUS SULFATE 325 MG TAB PO SCH (20:25)
[2017-10-23 20:28] LABS: Glucose,Whole Blood 174 mg/dL (75-99)
[2017-10-24] MEDS: LACTATED RINGERS 1,000 ML IV SCH ×2 (03:50→08:13)
[2017-10-24] MEDS: LEVOTHYROXINE 50 MCG TAB PO SCH (05:22)
[2017-10-24 07:03] LABS: Glucose,Whole Blood 137 mg/dL (75-99)
[2017-10-24 07:24] LABS: Anion Gap 4 mmol/L; Blood Urea Nitrogen 17 mg/dL (7-17); Calcium 8.5 mg/dL (8.4-10.2); Carbon Dioxide 25 mmol/L (22-30); Chloride 103 mmol/L (98-107); Glucose 126 mg/dL (74-99); Potassium 4.5 mmol/L (3.5-5.1); Sodium 132 mmol/L (137-145)
[2017-10-24 07:54] LABS: Basophils % (A) 0 %; Eosinophils # (A) 0.1 k/uL (0-0.7); Eosinophils % (A) 1 %; Lymphocytes # (A) 0.9 k/uL (1.0-4.8); Lymphocytes % (A) 10 %; MCH 31.6 pg (25.0-35.0); MCHC 32.3 g/dL (31.0-37.0); MCV 97.6 fL (80.0-100.0); Mean Platelet Volume 6.9; Monocytes # (A) 0.8 k/uL (0-1.0); Monocytes % (A) 8 %; Neutrophils # (A) 7.9 k/uL (1.3-7.7); Neutrophils % (A) 81 %; Platelet Count 184 k/uL (150-450); RBC 3.08 m/uL (3.80-5.40); RDW 14.9 % (11.5-15.5); WBC 9.8 k/uL (3.8-10.6)
[2017-10-24 07:55] LABS: HGB 9.7 gm/dL (11.4-16.0)
[2017-10-24] MEDS: PANTOPRAZOLE 40 MG TABLET PO SCH (08:12)
[2017-10-24] MEDS: FERROUS SULFATE 325 MG TAB PO SCH (08:12)
[2017-10-24] MEDS: TIMOLOL 0.25% OPHTH DROPS 5 ML BTL BOTH EYES SCH (08:13)
[2017-10-24] MEDS: RIVAROXABAN 10 MG TAB PO SCH (08:13)
[2017-10-24] MEDS: FLUoxetine HCL 20 MG CAP PO SCH (08:13)
[2017-10-24] MEDS: LISINOPRIL 10 MG TAB PO SCH (08:13)
--- NOTE | 2017-10-24 08:56 | P.DS ---
Providers Date of admission: 10/20/17 14:05 Expected date of discharge: 10/24/17 Attending physician: Rajendra Pepper Consults: 10/20/17 14:07 Consult Physician Stat Consulting Provider: Melissa Leiva Consult Reason/Comments: Surgical clearance Do you want consulting provider notified?: Yes 10/21/17 10:22 Consult Physician Routine Consulting Provider: Cristiane Okeefe Consult Reason/Comments: sinus bradycardia Do you want consulting provider notified?: Yes Primary care physician: Violetta Pimentel - Discharge Diagnosis(es) (1) Closed fracture of left hip Current Visit: Yes Status: Acute (2) Fall Current Visit: Yes Status: Acute (3) Status post hip surgery Current Visit: Yes Status: Acute Hospital Course: This is a 82 year old female who presented to the hospital post fall at home and sustained a left hip fracture. The patient was cleared by medicine for surgery. The patient underwent a ORIF left hip on 10/22/[address] Pepper. The procedure was performed without complication or sequelae. The patient is doing well postoperatively. Labs and vital signs are stable on the day of discharge. On the day of discharge the patient's hip incision is healing well. There is minimal erythema. There is no drainage noted at this time. There is minimal soft tissue swelling to the hip and thigh. The patient has full foot and ankle motion without difficulty or pain. Neurovascular status to the left lower extremity is intact. The patient is discharged to skilled rehab in good condition. Pertinent Studies: Laboratory Tests 10/24/17 06:54 WBC 9.8 RBC 3.08 L Hgb 9.7 L D Hct 30.0 L Patient Condition at Discharge: Stable Plan - Discharge Summary Discharge Rx Participant: Yes New Discharge Prescriptions: New HYDROcodone/APAP 5-325MG [[place] 5] 1 - 2 each PO Q4-6H PRN #60 tab PRN Reason: Pain Sennosides-Docusate Sodium [Senokot-S] 2 tab PO DAILY #30 tablet No Action Levothyroxine Sodium [Synthroid] 50 mcg PO DAILY FLUoxetine HCL [PROzac] 40 mg PO DAILY Cholecalciferol [Vitamin D3] 1,000 unit PO DAILY Aspirin EC [Ecotrin Low Dose] 81 mg PO DAILY Timolol Maleate 1 drop BOTH EYES QAM rOPINIRole HCL [Requip] 3 mg PO HS Atorvastatin [Lipitor] 20 mg PO HS Omeprazole [PriLOSEC] 40 mg PO BID ALPRAZolam [Xanax] 0.125 mg PO HS PRN #20 tablet PRN Reason: Anxiety Donepezil HCl [Aricept] 5 mg PO HS Clopidogrel [Plavix] 75 mg PO DAILY Lisinopril [Prinivil] 5 mg PO DAILY Diclofenac Sodium [Voltaren Gel] 2 gram TOPICAL BID PRN PRN Reason: Pain Discharge Medication List Cholecalciferol [Vitamin D3] 1,000 unit PO DAILY 10/02/13 [History] FLUoxetine HCL [PROzac] 40 mg PO DAILY 10/02/13 [History] Levothyroxine Sodium [Synthroid] 50 mcg PO DAILY 10/02/13 [History] Aspirin EC [Ecotrin Low Dose] 81 mg PO DAILY 12/23/15 [History] Atorvastatin [Lipitor] 20 mg PO HS 12/23/15 [History] Timolol Maleate 1 drop BOTH EYES QAM 12/23/15 [History] rOPINIRole HCL [Requip] 3 mg PO HS 12/23/15 [History] Omeprazole [PriLOSEC] 40 mg PO BID 01/28/17 [History] ALPRAZolam [Xanax] 0.125 mg PO HS PRN #20 tablet 02/01/17 [Rx] Donepezil HCl [Aricept] 5 mg PO HS 10/15/17 [History] Clopidogrel [Plavix] 75 mg PO DAILY 10/20/17 [History] Diclofenac Sodium [Voltaren Gel] 2 gram TOPICAL BID PRN 10/20/17 [History] Lisinopril [Prinivil] 5 mg PO DAILY 10/20/17 [History] HYDROcodone/APAP 5-325MG [[place] 5] 1 - 2 each PO Q4-6H PRN #60 tab 10/24/17 [Rx] Sennosides-Docusate Sodium [Senokot-S] 2 tab PO DAILY #30 tablet 10/24/17 [Rx] Follow up Appointment(s)/Referral(s): Violetta Pimentel MD [Primary Care Provider] - 1-2 days [facility], [NON-STAFF] - As Needed Rajendra Pepper DO [Doctor of Osteopathic Medicine] - 4 Weeks Ambulatory/Diagnostic Orders: Miscellaneous Radiology Order [RAD.AMB] Time Frame: 3 Weeks, Location: None Selected Activity/Diet/Wound Care/Special Instructions: Non-weightbearing with a walker Trin[place] per internal medicine Use Abductor pillow while in bed and when transferring to chair May shower in 3 days if no drainage from incision Keep incision clean and dry Call [facility] [phone] with questions or concerns Discharge Disposition: TRANSFER TO SNF/ECF
[2017-10-24] MEDS ORDERED: ASPIRIN 81 MG PO SCH (09:00)
[2017-10-24 11:38] LABS: Appearance,Urine Clear (Clear); Bilirubin,Urine Negative (Negative); Blood,Urine Small (Negative); Color,Urine Yellow; Glucose,Urine (UA) Negative (Negative); Ketones,Urine Negative (Negative); Leukocyte Esterase,Urine Negative (Negative); Mucus,Urine Rare /hpf; Nitrite,Urine Negative (Negative); PH, Urine 7.5 (5.0-8.0); Protein,Urine Trace (Negative); RBC,Urine 2 /hpf (0-5); Urobilinogen,Urine <2.0 mg/dL (<2.0); WBC,Urine <1 /hpf (0-5)
[2017-10-24 11:48] LABS: Glucose,Whole Blood 156 mg/dL (75-99)
[2017-10-24] MEDS: CHOLECALCIFEROL 1,000 UNIT TAB PO SCH (12:21)
--- NOTE | 2017-10-24 13:29 | P.PN ---
Subjective Progress Note Date: 10/24/17 Prerna Diego is an 82-year-old female patient of Dr. Pimentel who presented to [facility] emergency room after sustaining a fall and having pain in the left hip area. Patient was evaluated in the emergency room and had an x-ray of the left hip which revealed evidence of intertrochanteric fracture of the left hip. She was admitted under Dr. Pepper service, medical consultation was requested for surgical clearance and for medical management while hospitalized. Patient was interviewed and examined on the surgical floor she is alert and oriented 3 in no apparent distress she states that she slipped and fell while she was cleaning, she denies having any loss of consciousness, she denies having any symptoms prior to falling there was no dizziness no chest pain and no shortness of breath. Patient has a bruise on the left frontal area but she states that was from a fall more than a week ago she denies any head trauma at this time. Patient has known history of hypertension and hyperlipidemia she is also maintained on blood thinners aspirin and Plavix, indication for which she is not very clear, she denies having any cardiac history in the past she denies seen any physician asst in the past she denies having any cardiac catheterization or stent placement, she denies having any peripheral vascular disease or having any intervention on her lower extremities, she denies having any strokes or TIAs in the past. 10/21/2017 patient currently resting in bed with some complaint of left hip pain. Family at bedside. Per family, patient has not been on Plavix since August 29. They also state patient was taking the plavix for strokes. Due to conflicting information in regards to when the Plavix has been taken, medical clearance is on hold at this time due to patient stating yesterday that she had taken her Plavix in the AM and the potential increase risk of bleeding with surgery. Per nursing staff patient's heart rate this AM was 52 BPM. Orders placed for patient to be on telemetry and for a cardiology consultation. Patient denies chest pain or shortness of breath. 10/22/2017 patient currently in bed post open reduction and internal fixation of the left hip. Patient has mild pain left hip site. Cardiology was consulted patient having bradycardia is today 2-D echo was completed and interpreted by cardiology. Clarification on when patient took Plavix was determined by speaking with primary care provider Dr. Pimentel. Was informed that patient has been off Plavix since August 29 and has not received any refills. Lisinopril 10 mg was added per cardiology for hypertension. She denies chest pain or shortness of breath at this time. On 10/23/2017 patient currently sitting up in chair. Feeling much better than she did yesterday. Patient has minimal pain to left hip site. She did have episodes of heart rate in the 40s while she was sleeping. Current heart rate 68. Cardiology is following. Case discussed with nurse in regards to DVT prophylaxis. Ortho services is requesting primary care to initiate DVT prophylaxis. Will start patient on Xeralto 10 mg daily and patient received 1 unit of PRBCs yesterday. Globin is up to aspirin 81 mg. Patient's hemoglobin down to 7.7 this morning. Left hip site is clean dry and intact with no signs of hematoma. Per nursing staff and patient ther is no signs of active bleeding at this time. Will transfuse 1 unit of PRBCs. Will check stool occult. On 10/24/2017 patient currently sitting up in chair. Discharge orders per surgical services have been placed. Patient will be going to [place]. Hemoglobin coming up to 9.7. UA completed and was negative for infection. Patient's sodium 132 have reordered CBC and comp for Saturday. Patient will be discharged on aspirin 81 mg and Xarelto 10mg daily. She denies chest pain or shortness of breath at this time. Patient's heart rate has improved and primarily in the 60's. Patient's lisinopril had been increased from 5 to 10 mg per cardiology. Blood pressure 122/52 and heart rate 65. We'll continue to monitor closely outpatient. Objective - Vital Signs Vital signs: Vital Signs Temp 98.8 F 10/24/17 07:50 Pulse 65 10/24/17 07:50 Resp 14 10/24/17 07:50 BP 122/52 10/24/17 07:50 Pulse Ox 98 10/24/17 07:50 Intake & Output 10/23/17 10/24/17 10/24/17 18:59 06:59 18:59 Intake Total 0 1430 Output Total 1100 675 600 Balance -1100 755 -600 Intake: Intake, IV Titration 880 Amount Lactated Ringers 1,000 ml 880 @ 80 mls/hr IV .[id number] [facility] Rx#:[id number] Oral 240 Blood Product 0 310 Rc As-1 Unit 0 310 [id number] Output: Urine 1100 675 600 Uretheral (Marlow) 600 Other: Voiding Method Indwelling Catheter Indwelling Catheter Indwelling Catheter - Exam Head normocephalic Neck supple Lungs clear to auscultation bilaterally no wheezing or crackles Heart bradycardia regular rate and rhythm S1-S2, no rub or gallop Abdomen is soft nontender nondistended positive bowel sounds no hepatosplenomegaly Extremities no edema. Left hip tenderness and pain. Dressing clean dry and intact with no signs of hematoma Neuro alert and orientated to 3 - Labs CBC & Chem 7: 10/24/17 06:54 10/24/17 06:54 Labs: Abnormal Lab Results - Last 24 Hours (Table) 10/22/17 10/23/17 10/23/17 Range/Units 10:24 16:57 20:27 RBC (3.80-5.40) m/uL Hgb (11.4-16.0) gm/dL Hct (34.0-46.0) % Neutrophils # (1.3-7.7) k/uL Lymphocytes # (1.0-4.8) k/uL Sodium (137-145) mmol/L Glucose (74-99) mg/dL POC Glucose (mg/dL) 124 H 174 H (75-99) mg/dL Urine Protein (Negative) Urine Blood (Negative) Urine Mucus (None) /hpf Crossmatch See Detail 10/24/17 10/24/17 10/24/17 Range/Units 06:54 06:54 06:58 RBC 3.08 L (3.80-5.40) m/uL Hgb 9.7 L D (11.4-16.0) gm/dL Hct 30.0 L (34.0-46.0) % Neutrophils # 7.9 H (1.3-7.7) k/uL Lymphocytes # 0.9 L (1.0-4.8) k/uL Sodium 132 L (137-145) mmol/L Glucose 126 H (74-99) mg/dL POC Glucose (mg/dL) 137 H (75-99) mg/dL Urine Protein (Negative) Urine Blood (Negative) Urine Mucus (None) /hpf Crossmatch 10/24/17 10/24/17 Range/Units 11:15 11:38 RBC (3.80-5.40) m/uL Hgb (11.4-16.0) gm/dL Hct (34.0-46.0) % Neutrophils # (1.3-7.7) k/uL Lymphocytes # (1.0-4.8) k/uL Sodium (137-145) mmol/L Glucose (74-99) mg/dL POC Glucose (mg/dL) 156 H (75-99) mg/dL Urine Protein Trace H (Negative) Urine Blood Small H (Negative) Urine Mucus Rare H (None) /hpf Crossmatch Assessment and Plan Assessment: #1 fall with left hip intertrochanteric fracture patient is admitted to orthopedic surgery for possible surgical intervention. Patient is status post open reduction and internal fixation of the left hip with Dr. Pepper. Orthostatic services requesting primary care initiate DVT prophylaxis. Xeralto 10 mg and aspirin 81 mg will be ordered. #2 underlying the use of blood thinner Plavix patient stated that she took a pill on 10/20/2017 in a.m. she also took aspirin 81 mg at the same time. This would increase the risk of bleeding, will defer to orthopedic protocols to assess if platelet transfusion is necessary, or delay in surgery is necessary to avoid excessive bleeding. Per family patient was on Plavix for strokes. Per family patient has not taken Plavix since August 29 but the patient did state yesterday that she had taken it in the AM of 10/20. Indication was made with Dr. Pimentel. Patient has been off of Plavix since August 29 and has not received any refills. Plavix has been DC'd on discharge #3 hypertension blood pressure is elevated at this time will resume lisinopril 5 mg by mouth daily Will also add enalapril IV as needed. Cardiology has increased lisinopril to 10 mg. Blood pressure 122/52 #4 underlying history of depression maintained on Prozac continue #5 underlying history of hyperlipidemia maintained on Lipitor #6 underlying history of dementia maintained on Aricept #8 bradycardia. Nursing staff patient's heart rate 52 this A.M. cardiology consult has been placed and patient placed on telemetry. 2-D echo has been performed and EF of 55-60%. Heart rate throughout the night in the 40s. Current heart rate 68. Cardiology is following. Heart Rate has improved now in the 60s. #9 anemia following Postoperative blood loss. Hemoglobin 7.9. Will transfuse 1 unit of packed red blood cells. Will order occult stool. Will order ferrous sulfate will continue to monitor hemoglobin closely. 11 today 9.7 DVT prophylaxis xarelto. GI prophylaxis Protonix. Will follow during this hospitalization for medical management I performed an examination of the patient and discussed their management with the Nurse Practitioner. I have reviewed the Nurse Practitioner's notes and agree with the documented findings and plan of care
[2017-10-24] MEDS: HYDROcodone/APAP 5-325MG 1 EACH TAB PO PRN (14:48)
[2017-10-24 14:49] VITALS: BP 151/55; PULSE 60; RESP 16; TEMP 97.3
== END 2017-10-24 15:15 | DRG 481 ==
LOC: EC 12:36 → 3SUR 14:05
PROVIDERS: ADMIT Orthopaedic Surgery; ATTEND Orthopaedic Surgery
PROC: 0QS734Z Reposition Left Upper Femur with Internal Fixation Device, Percutaneous Approach (ICD-10-PCS; principal; 2017-10-23)
PROC: 30233N1 Transfusion of Nonautologous Red Blood Cells into Peripheral Vein, Percutaneous Approach (ICD-10-PCS; 2017-10-23)
DX: S72.142A Displaced intertrochanteric fracture of left femur, initial encounter for closed fracture (principal); I47.1 Supraventricular tachycardia; D62 Acute posthemorrhagic anemia; I27.20 Pulmonary hypertension, unspecified; I08.3 Combined rheumatic disorders of mitral, aortic and tricuspid valves; E11.9 Type 2 diabetes mellitus without complications; R00.1 Bradycardia, unspecified; F03.90 Unspecified dementia, unspecified severity, without behavioral disturbance, psychotic disturbance, mood disturbance, and anxiety; I10 Essential (primary) hypertension; K21.9 Gastro-esophageal reflux disease without esophagitis; E78.5 Hyperlipidemia, unspecified; F32.9 Major depressive disorder, single episode, unspecified; F41.9 Anxiety disorder, unspecified; M19.91 Primary osteoarthritis, unspecified site; R29.6 Repeated falls; Z79.82 Long term (current) use of aspirin; Z79.890 Hormone replacement therapy; Z79.02 Long term (current) use of antithrombotics/antiplatelets; Z79.899 Other long term (current) drug therapy; Z86.73 Personal history of transient ischemic attack (TIA), and cerebral infarction without residual deficits; Z90.710 Acquired absence of both cervix and uterus; Z86.010 Personal history of colon polyps; Z85.828 Personal history of other malignant neoplasm of skin; Y92.002 Bathroom of unspecified non-institutional (private) residence as the place of occurrence of the external cause; W01.0XXA Fall on same level from slipping, tripping and stumbling without subsequent striking against object, initial encounter; Z82.49 Family history of ischemic heart disease and other diseases of the circulatory system; Z82.3 Family history of stroke
CPT/HCPCS: 71045; 73501; 73502; 80048; 80053; 81001; 81003; 83036; 83735; 84443; 85025; 85610; 85730; 86850; 86900; 86901; 86920; 93005; 93306; 96374; 96375; 99285

== ENCOUNTER → 2017-12-25 | Outpatient (CLI) | payer MEDICARE, BC ==
[2017-12-25 15:00] LABS: HCT 37.1 % (34.0-46.0); HGB 12.1 gm/dL (11.4-16.0); MCH 32.9 pg (25.0-35.0); MCHC 32.8 g/dL (31.0-37.0); MCV 100.5 fL (80.0-100.0); Macrocytosis Slight; Mean Platelet Volume 6.8; Platelet Count 399 k/uL (150-450); RBC 3.69 m/uL (3.80-5.40); WBC 6.1 k/uL (3.8-10.6)
[2017-12-25 15:08] LABS: INR 0.9 (<1.2); Partial Thromboplastin Time 22.9 sec (22.0-30.0); Prothrombin Time 9.4 sec (9.0-12.0)
[2017-12-25 15:11] LABS: Appearance,Urine Clear (Clear); Bacteria,Urine Occasional /hpf; Bilirubin,Urine Negative (Negative); Blood,Urine Negative (Negative); Color,Urine Yellow; Glucose,Urine (UA) Negative (Negative); Hyaline Casts,Urine 3 /lpf (0-2); Ketones,Urine Negative (Negative); Leukocyte Esterase,Urine Moderate (Negative); Mucus,Urine Rare /hpf; Nitrite,Urine Negative (Negative); Protein,Urine Trace (Negative); RBC,Urine 1 /hpf (0-5); Squamous Epithelial Cell,Urine 3 /hpf (0-4); Urobilinogen,Urine <2.0 mg/dL (<2.0); WBC,Urine 8 /hpf (0-5)
[2017-12-25 15:12] LABS: Albumin 3.4 g/dL (3.5-5.0); Calcium 9.8 mg/dL (8.4-10.2); Potassium 5.3 mmol/L (3.5-5.1); Total Bilirubin 0.3 mg/dL (0.2-1.3); Total Protein 6.3 g/dL (6.3-8.2)
== END | disposition home or self-care (01) ==
LOC: LABPAT 13:33
PROVIDERS: ATTEND Orthopaedic Surgery
DX: Z01.818 Encounter for other preprocedural examination (principal); Z01.812 Encounter for preprocedural laboratory examination; Z79.01 Long term (current) use of anticoagulants
CPT/HCPCS: 80053; 81001; 85027; 85610; 85730; 87070; 93005

== ENCOUNTER 2017-12-30 06:05 | Inpatient (IN) | payer MEDICARE, BC ==
[2017-12-25 11:55] VITALS: BMI 20.2
[~2017-12-30 06:05] MED LIST: LACTATED RINGERS 1,000 ML IV SCH; LIDOCAINE 1% 20 ML VIAL (10MG/ML) FOR IV START INTRADERMA PRN; ONDANSETRON 4 MG/2 ML VIAL IVP ONE; ceFAZolin IN SWFI 2 GM/20 ML SYRINGE IVP ONE
[2017-12-30] MEDS ORDERED: MIDAZOLAM 2 MG/2 ML VIAL ONE ×2 (07:06→07:52)
[2017-12-30] MEDS: MIDAZOLAM 2 MG/2 ML VIAL IVP ONE ×2 (07:07→07:18)
[2017-12-30 07:24] LABS: HCT 37.9 % (34.0-46.0); HGB 12.6 gm/dL (11.4-16.0); MCH 32.5 pg (25.0-35.0); MCHC 33.3 g/dL (31.0-37.0); MCV 97.6 fL (80.0-100.0); Mean Platelet Volume 6.7; Platelet Count 379 k/uL (150-450); RBC 3.88 m/uL (3.80-5.40); RDW 13.9 % (11.5-15.5); WBC 7.9 k/uL (3.8-10.6)
[2017-12-30] MEDS ORDERED: WATER FOR INJECTION, STERILE 10 ML VIAL IV ONE (07:52)
[2017-12-30] MEDS ORDERED: PHENYLEPHRINE-0.9% NACL SYG 1 MG/10 ML SYRINGE ONE (07:52)
[2017-12-30] MEDS ORDERED: PROPOFOL 10 MG/ML 20 ML VIAL IV ONE (07:52)
[2017-12-30] MEDS ORDERED: fentaNYL (PF) 50 MCG/ML 2 ML AMP ONE (07:52)
[2017-12-30] MEDS ORDERED: SODIUM CHLORIDE 0.9% IRRIG 1,000 ML BTL IRRIGATION ONE (07:52)
[2017-12-30] MEDS ORDERED: LIDOCAINE 1% INJ 10MG/ML (20 ML MDV) ONE (07:52)
[2017-12-30] MEDS ORDERED: NEOSTIGMINE 1 MG/ML 10 ML VIAL ONE (07:52)
[2017-12-30] MEDS ORDERED: HEPARIN SODIUM,PORCINE 10,000 UNIT/ML 1 ML VIAL ONE (07:52)
[2017-12-30] MEDS ORDERED: ROCURONIUM BROMIDE 10 MG/ML 10 ML VIAL IV ONE (07:52)
[2017-12-30] MEDS ORDERED: ePHEDrine SULFATE/0.9% NACL/PF 50 MG/5 ML SYRINGE IV ONE (07:52)
[2017-12-30] MEDS ORDERED: SUCCINYLCHOLINE CHLORIDE 100 MG/5 ML SYR IV ONE (07:52)
[2017-12-30] MEDS ORDERED: GLYCOPYRROLATE 0.2 MG/ML 2 ML VIAL ONE (07:52)
[2017-12-30 08:05] LABS: Potassium 4.6 mmol/L (3.5-5.1)
[2017-12-30] MEDS ORDERED: ceFAZolin 3,000 MG in SODIUM CHLORIDE 0.9% IRRIGATIO 3,000 ML IRRIGATION ONE (08:30)
[2017-12-30] MEDS ORDERED: LACTATED RINGERS 1,000 ML IV ONE (08:42)
[2017-12-30] MEDS ORDERED: HYDROmorphone 1 MG/ML 1 ML SYRINGE IVP PRN ×3 (10:01)
[2017-12-30] MEDS ORDERED: MAGNESIUM HYDROXIDE 2,400 MG/10 ML CUP PO PRN (10:01)
[2017-12-30] MEDS ORDERED: TEMAZEPAM 15 MG CAP PO PRN (10:01)
[2017-12-30] MEDS ORDERED: NALOXONE 0.4 MG/ML 1 ML VIAL IV PRN (10:01)
[2017-12-30] MEDS ORDERED: hydrOXYzine PAMOATE 25 MG CAP PO PRN (10:01)
[2017-12-30] MEDS ORDERED: LACTATED RINGERS 1,000 ML IV SCH (10:15)
[2017-12-30] MEDS: HYDROmorphone 0.5 MG/0.5 ML SYRINGE IVP PRN ×2 (10:20→10:25)
[2017-12-30] MEDS: fentaNYL (PF) 50 MCG/ML 2 ML AMP IVP ONE ×2 (10:37→10:47)
--- NOTE | 2017-12-30 11:00 | XR ---
Left hip HISTORY: Status post left hip surgery, left hip arthroplasty Single frontal view of the left hip correlated to previous exam 10/22/2017 Patient is status post left hip arthroplasty and removal of the internal fixation hardware. Heterotop ic new bone is present about the proximal left femur. Alignment is anatomic. Bone mineralization is r educed. Lucency in the soft tissues is compatible with postop state. IMPRESSION: Orthopedic follow-up.
[2017-12-30] MEDS ORDERED: ALPRAZolam 0.25 MG TAB PO PRN (11:12)
--- NOTE | 2017-12-30 11:28 | P.CONS ---
History of Present Illness - Reason for Consult Consult date: 12/30/17 Medical management Requesting physician: Rajendra Pepper - Chief Complaint Status post left total hip arthroplasty - History of Present Illness 82-year-old female, patient of Dr. Pimentel. She has a known past medical history hypothyroidism, hypertension, anemia, GERD, CVA, dementia, depression and side. Patient had a fall in October and had fractured her left hip. She underwent open reduction and internal fixation of the left hip with Dr. Pepper. She was placed on Xarelto and aspirin for DVT prophylaxis. Patient still is complaining of pain of the left hip. She was diagnosed with failing the internal fixation for displaced intertrochanteric fracture of the left hip. She underwent removal of hardware and femoral head replacement on the left hip. Patient is currently lying in bed comfortably. No evidence of any distress. She denies any chest pain or shortness of breath. Denies any nausea or vomiting. Does report some mild pain in that left hip. We have been consulted for medical management. Review of Systems Please refer to HPI otherwise unremarkable Past Medical History Past Medical History: Cancer, CVA/TIA, Diabetes Mellitus, Eye Disorder, GERD/ Reflux, Hyperlipidemia, Hypertension, Osteoarthritis (OA), Thyroid Disorder Additional Past Medical History / Comment(s): HX: DM, NO RX SINCE WGT LOSS. SCOLIOSIS, BACK PAIN. SKIN CA, MULT. CVA, SL generalized weakness residual, TIA 04/2013 (pt/francisco j think she has a couple). Irregular heart beat OCC, Bradycardia at times, MINOR HEART MURMUR. GLAUCOMA. LT HIP FX 10/2017, HAS IRRITATING HARDWARE NOW. History of Any Multi-Drug Resistant Organisms: None Reported Past Surgical History: Hysterectomy Additional Past Surgical History / Comment(s): Colonoscopies w/ polypectomy- benign. MAIRA CATARACTS. Epidural INJ Lumbar Spine, LAST 10/07/17. 10/22/17 ORIF LT HIP. Past Anesthesia/Blood Transfusion Reactions: No Reported Reaction Smoking Status: Never smoker - Past Family History Son(s) Family Medical History: Deep Vein Thrombosis (DVT) Father Family Medical History: Coronary Artery Disease (CAD), Myocardial Infarction (NV ) Additional Family Medical History / Comment(s): Father of NV-pt unsure what age,. Mother Family Medical History: CVA/TIA Medications and Allergies Home Medications Medication Instructions Recorded Confirmed Type Cholecalciferol [Vitamin D3] 1,000 unit PO DAILY 10/02/13 12/30/17 History FLUoxetine HCL [PROzac] 40 mg PO DAILY 10/02/13 12/30/17 History Levothyroxine Sodium [Synthroid] 50 mcg PO DAILY 10/02/13 12/30/17 History Aspirin EC [Ecotrin Low Dose] 81 mg PO DAILY 12/23/15 12/30/17 History Atorvastatin [Lipitor] 20 mg PO HS 12/23/15 12/30/17 History Timolol Maleate 1 drop BOTH EYES QAM 12/23/15 12/30/17 History rOPINIRole HCL [Requip] 3 mg PO HS 12/23/15 12/30/17 History Omeprazole [PriLOSEC] 20 mg PO DAILY 01/28/17 12/30/17 History Donepezil HCl [Aricept] 5 mg PO HS 10/15/17 12/30/17 History HYDROcodone/APAP 5-325MG [[place] 5] 1 - 2 each PO Q4-6H PRN #60 tab 10/24/17 Rx Rivaroxaban [Xarelto] 10 mg PO DAILY tab 10/24/17 12/30/17 Rx ALPRAZolam [Xanax] 0.25 mg PO HS PRN 12/25/17 12/30/17 History Acetaminophen [Tylenol Arthritis] 650 mg PO Q6H PRN 12/25/17 12/30/17 History Diclofenac Sodium [Voltaren Gel] 2 - 4 gram TOPICAL HS 12/25/17 12/30/17 History Ferrous Sulfate [Iron (65 MG 325 mg PO DAILY 12/25/17 12/30/17 History Elemental)] Ibuprofen [Motrin Ib] 200 - 400 mg PO Q6H PRN 12/25/17 12/30/17 History Latanoprost Ophth [Xalatan 0.005%] 1 drops BOTH EYES HS 12/25/17 12/30/17 History Potassium Chloride ER [K-Dur 10] 5 meq PO DAILY 12/25/17 12/30/17 History Lisinopril [Prinivil] 5 mg PO DAILY 12/30/17 12/30/17 History Allergies Allergy/AdvReac Type Severity Reaction Status Date / Time No Known Allergies Allergy Verified 12/30/17 06:45 Physical Exam Vitals: Vital Signs Temp Pulse Pulse Resp BP BP Pulse Ox 12/30/17 10:40 103 H 16 145/64 99 12/30/17 10:25 74 16 142/75 100 12/30/17 10:10 83 16 135/70 100 12/30/17 09:55 97.2 F L 97 16 166/82 100 12/30/17 07:24 58 L 16 96 12/30/17 06:48 97.7 F 54 L 18 146/65 98 Intake and Output 12/29/17 12/30/17 12/30/17 22:59 06:59 14:59 Intake Total 1851 Output Total 400 Balance 1451 Intake: IV 1851 Output: Estimated Blood Loss 400 Head normocephalic Neck supple Lungs clear to auscultation bilaterally no wheezing or crackles Heart regular rate and rhythm S1-S2, no rub or gallop Abdomen is soft nontender nondistended positive bowel sounds no hepatosplenomegaly Extremities no edema Neuro alert and orientated to 2. She knows her name and the year. Results CBC & Chem 7: 12/30/17 06:52 12/30/17 06:52 Labs: Abnormal Lab Results - Last 24 Hours (Table) 12/30/17 Range/Units 06:52 Sodium 134 L (137-145) mmol/L Carbon Dioxide 21 L (22-30) mmol/L Microbiology - Last 24 Hours (Table) 12/30/17 08:30 Gram Stain - Preliminary Hip - Left Assessment and Plan Assessment: 1. Left hip fracture failing internal fixation of the left hip. Status post removal of hardware and femoral head replacement of left. We'll have nursing clarify if Xarelto and aspirin are being restarted for DVT prophylaxis 2. History of CVA 3. History of dementia 4. Hypothyroidism continue Synthroid 5. Essential hypertension: Blood pressure on the lower side after surgery we' ll place parameters around the lisinopril. Continue to monitor 6. Hyperlipidemia continue statin 7. History of anxiety and depression: Continue Xanax GI prophylaxis omeprazole Thank you for this consultation. We will continue to follow along with you during this hospitalization Time with Patient: Greater than 30 (Greater than 60% of the total time spent in counseling and coordination of care.I performed an examination of the patient and discussed their management with the physician Switch Foreman. I have reviewed the Physician Switch Foreman's notes and agree with the documented findings and plan of care)
--- NOTE | 2017-12-30 12:19 | OP ---
OPERATIVE REPORT DATE OF SERVICE: 12/30/2017. SURGEON: Rajendra Pepper DO. FIRST ASSESSMENT: Mare Singer NP PREOPERATIVE DIAGNOSIS: Failure of the left nail hip fixation. POSTOPERATIVE DIAGNOSIS: Failure of the left nail hip fixation. PROCEDURE PERFORMED: Removal of left hip hardware with left femoral head replacement arthroplasty. DESCRIPTION OF PROCEDURE: The patient was placed in supine position. General inhalation anesthesia was performed by the department of anesthesiology. She was then placed in the leg gonsalves padded and secured. A Betadine prep was carried out over the left hip. Sterile drapes applied in the usual manner. A lateral incision was developed over the proximal femur. Sharp dissection through the subcutaneous tissue was performed. The tensor fascia jenifer was incised longitudinally and posterior oblique cut was developed. The lateral soft tissue was then elevated plate and screws were removed. The locking screws removed in its entirety. Gluteus medias released from trochanter, the leg was then brought into abduction. The anterior capsule was identified and excised. The femoral head was then removed with a bone screw. The area was measured to be 43 mm in widest diameter. With identification of the femoral canal, a bone awl was utilized in developing the tunnel. Further trochanteric reamer was inserted. The reaming and broaching of the femoral canal was carried out to accept the size 11 stem. The shelving planer was utilized in preparing cortical arc. With the trial stem #11, 43 mm femoral head trial component placement of the stem and the hip was reduced. Alignment and stability were well maintained and there was no evidence of instability. The hip component was dislocated and was removed. The area was irrigated copiously with Pulsavac antibiotic solution in preparation for final component. A #11 press-fit stem was then inserted and impacted in the cortical arc. No evidence of deviation out of canal. The 43 mm femoral head was placed along the trunnion and impacted. The femoral head was reduced and alignment and stability was again well maintained. The area was irrigated. The gluteus medius was then reapproximated with #3 Dexon suture. The vastus lateralis was approximated with #3 Dexon suture in running fashion. The tensor fascia jenifer was re- approximated with #3 Dexon suture. Subcutaneous tissue approximated with 2-0 Vicryl suture. Skin approximated with #3-0 subcuticular closure. The skin was sealed with Dermabond. The patient was placed in sterile compression dressing to the hip and the abductor pillow splint. She was transferred to the recovery room in satisfactory postop condition. GROSS PATHOLOGY: There is a failed hip fixation with cut out of femur head approximately 8 weeks since surgery. Culture was obtained. No evidence of infection in the area. The estimated blood loss approximately 250 mL. Cell saver was utilized in this patient's care and probable transfer to selective care if unstable in the recovery room. MMGEOVANIL / SHANNAN: [id number] / JESSICA
[2017-12-30] MEDS ORDERED: SODIUM CHLORIDE 0.9% 500 ML IV ONE ×2 (13:04→15:10)
[2017-12-30] MEDS: ceFAZolin IN SWFI 2 GM/20 ML SYRINGE IVP SCH ×2 (17:34→23:47)
[2017-12-30] MEDS: HYDROcodone/APAP 5-325MG 1 EACH TAB PO PRN ×2 (17:34→23:51)
[2017-12-30] MEDS: DONEPEZIL 5 MG TAB PO SCH (20:15)
[2017-12-30] MEDS: ATORVASTATIN 20 MG TAB PO SCH (20:15)
[2017-12-30] MEDS: LATANOPROST 0.005% OPHTH DROPS 2.5 ML BTL BOTH EYES SCH (20:15)
[2017-12-30] MEDS: SENNOSIDES-DOCUSATE SODIUM 1 EACH TAB PO SCH (20:15)
[2017-12-30] MEDS: SODIUM CHLORIDE 0.9% 1,000 ML IV SCH ×2 (20:16)
[2017-12-31] MEDS: ONDANSETRON 4 MG/2 ML VIAL IVP PRN (00:11)
[2017-12-31] MEDS: LEVOTHYROXINE 50 MCG TAB PO SCH (04:56)
[2017-12-31] MEDS: HYDROcodone/APAP 5-325MG 1 EACH TAB PO PRN ×3 (05:33→22:06)
[2017-12-31 08:15] LABS: Basophils % (A) 0 %; Eosinophils % (A) 0 %; HCT 23.8 % (34.0-46.0); Lymphocytes % (A) 13 %; MCH 32.7 pg (25.0-35.0); MCHC 32.5 g/dL (31.0-37.0); MCV 100.6 fL (80.0-100.0); Macrocytosis Slight; Mean Platelet Volume 6.6; Monocytes # (A) 0.6 k/uL (0-1.0); Monocytes % (A) 8 %; Neutrophils # (A) 5.6 k/uL (1.3-7.7); Neutrophils % (A) 76 %; Platelet Count 204 k/uL (150-450); RBC 2.37 m/uL (3.80-5.40); RDW 14.2 % (11.5-15.5); WBC 7.4 k/uL (3.8-10.6)
[2017-12-31 08:27] LABS: Albumin 2.2 g/dL (3.5-5.0); Calcium 8.7 mg/dL (8.4-10.2); Total Bilirubin 0.4 mg/dL (0.2-1.3); Total Protein 4.4 g/dL (6.3-8.2)
[2017-12-31 08:28] LABS: HGB 7.7 gm/dL (11.4-16.0)
--- NOTE | 2017-12-31 08:45 | P.PN ---
Subjective Progress Note Date: 12/31/17 Principal diagnosis: Status post left hip hardware removal and femoral head replacement This is a 82 year-old female post left hip hardware removal and femoral head replacement. This is post-op day 1. The patient was evaluated at the bedside today. The patient denies nausea, vomiting, abdominal pain, shortness of breath , and chest pain this morning. She states her pain is controlled at this time. The patient has not been up with physical therapy. Objective - Vital Signs Vital signs: Vital Signs Temp 98.3 F 12/31/17 00:00 Pulse 79 12/31/17 00:00 Resp 16 12/31/17 00:00 BP 93/53 12/31/17 00:00 Pulse Ox 100 12/31/17 00:00 Intake & Output 12/30/17 12/31/17 12/31/17 18:59 06:59 18:59 Intake Total 2851 1250 Output Total 400 Balance 2451 1250 Weight 48.534 kg Intake: IV 1851 Intake, IV Titration 1000 1250 Amount Sodium Chloride 0.9% 1, 1250 000 ml @ 100 mls/hr IV . Q10H [facility] Rx#:[id number] Sodium Chloride 0.9% 500 1000 ml @ 999 mls/hr IV .Q31M [facility] Rx#:[id number] Output: Estimated Blood Loss 400 Other: Voiding Method Toilet Bedside Commode Incontinent - Exam The patient does not appear in acute distress. Alert and orientated x3. Dressing is clean dry and intact. Incision appears fine with no erythema or active drainage. Calf is soft and nontender. Good foot and ankle motion without difficulty. Sensation and circulatory status is intact. - Labs CBC & Chem 7: 12/31/17 07:27 12/31/17 07:27 Labs: Abnormal Lab Results - Last 24 Hours (Table) 12/30/17 12/30/17 12/31/17 Range/Units 16:17 21:12 07:27 RBC 2.37 L (3.80-5.40) m/uL Hgb 7.7 L D (11.4-16.0) gm/dL Hct 23.8 L (34.0-46.0) % MCV 100.6 H (80.0-100.0) fL Sodium (137-145) mmol/L Chloride (98-107) mmol/L Carbon Dioxide (22-30) mmol/L BUN (7-17) mg/dL Glucose (74-99) mg/dL Plasma Lactic Acid Ankur 2.9 H* 2.9 H* (0.7-2.0) mmol/L Total Protein (6.3-8.2) g/dL Albumin (3.5-5.0) g/dL 12/31/17 Range/Units 07:27 RBC (3.80-5.40) m/uL Hgb (11.4-16.0) gm/dL Hct (34.0-46.0) % MCV (80.0-100.0) fL Sodium 135 L (137-145) mmol/L Chloride 109 H (98-107) mmol/L Carbon Dioxide 19 L (22-30) mmol/L BUN 23 H (7-17) mg/dL Glucose 115 H (74-99) mg/dL Plasma Lactic Acid Ankur (0.7-2.0) mmol/L Total Protein 4.4 L (6.3-8.2) g/dL Albumin 2.2 L (3.5-5.0) g/dL Microbiology - Last 24 Hours (Table) 12/30/17 08:30 Gram Stain - Preliminary Hip - Left 12/30/17 08:30 Anaerobic Culture - Preliminary Hip - Left Assessment and Plan (1) Failed hardware Current Visit: Yes Status: Acute Code(s): TAP1021 - SNOMED Code(s): 700812482 (2) Status post hip hemiarthroplasty Current Visit: Yes Status: Acute Code(s): Z96.649 - PRESENCE OF UNSPECIFIED ARTIFICIAL HIP JOINT SNOMED Code(s): 530069778 Plan: 1. Continue pain control 2. Anticoagulation with Xarelto per internal medicine 3. Start physical therapy and ambulation today 4. Anticipate discharge to [facility] on or Saturday
[2017-12-31] MEDS: ASPIRIN 81 MG PO SCH (08:53)
[2017-12-31] MEDS: FLUoxetine HCL 20 MG CAP PO SCH (08:53)
[2017-12-31] MEDS: POTASSIUM CHLORIDE ER 10 MEQ TAB.ER.PRT PO SCH (08:53)
[2017-12-31] MEDS: CHOLECALCIFEROL 1,000 UNIT TAB PO SCH (08:53)
[2017-12-31] MEDS: PANTOPRAZOLE 40 MG TABLET PO SCH (08:54)
[2017-12-31] MEDS: RIVAROXABAN 10 MG TAB PO SCH (08:54)
[2017-12-31] MEDS: TIMOLOL 0.25% OPHTH DROPS 5 ML BTL BOTH EYES SCH (08:55)
[2017-12-31] MEDS ORDERED: LISINOPRIL 5 MG TAB PO SCH (09:00)
[2017-12-31] MEDS ORDERED: FERROUS SULFATE 325 MG TAB PO SCH (09:00)
--- NOTE | 2017-12-31 11:04 | P.CNPUL ---
History of Present Illness Consult date: 12/31/17 Reason for consult: other Chief complaint: Hypotension History of present illness: Pulmonary consult dated 12/31/2017 83-year-old female who is status post left femoral head replacement arthroplasty. She is postop day #1. We were consulted because initially when she came back to the floor, she was hypotensive. She received 1-1/2 L of fluid and her blood pressure normalized. Today she sitting comfortably in bed. She is upright. She's got some nasal O2 wanted to liters. Denies any complaints. Feels well. No pain. The patient's blood pressure is now back to normal. Apparently we are consulted a yesterday but I was not called. The surgery was done by Dr. Pepper. The patient has a history of hypothyroidism hypertension and anemia GERD CVA dementia depression and thyroid disease. Patient apparently had a fall in October and had a fractured left hip. She underwent a open reduction and internal fixation of the left hip with Dr. Pepper. She was diagnosed as having a failing of the internal fixation of the left hip. Hardware was removed and she had femoral head replacement on the left hip. Again, although she was hypotensive immediately afterwards, she is doing much better now just with fluid resuscitation. Review of Systems A 14 point review of system is essentially unremarkable save for some very mild pain at the surgical site. Other than that, she has no major complaints. Not a particularly good historian because of her dementia. Past Medical History Past Medical History: Cancer, CVA/TIA, Diabetes Mellitus, Eye Disorder, GERD/ Reflux, Hyperlipidemia, Hypertension, Osteoarthritis (OA), Thyroid Disorder Additional Past Medical History / Comment(s): HX: DM, NO RX SINCE WGT LOSS. SCOLIOSIS, BACK PAIN. SKIN CA, MULT. CVA, SL generalized weakness residual, TIA 04/2013 (pt/francisco j think she has a couple). Irregular heart beat OCC, Bradycardia at times, MINOR HEART MURMUR. GLAUCOMA. LT HIP FX 10/2017, HAS IRRITATING HARDWARE NOW. History of Any Multi-Drug Resistant Organisms: None Reported Past Surgical History: Hysterectomy Additional Past Surgical History / Comment(s): Colonoscopies w/ polypectomy- benign. MAIRA CATARACTS. Epidural INJ Lumbar Spine, LAST 10/07/17. 10/22/17 ORIF LT HIP. Past Anesthesia/Blood Transfusion Reactions: No Reported Reaction Smoking Status: Never smoker - Past Family History Son(s) Family Medical History: Deep Vein Thrombosis (DVT) Father Family Medical History: Coronary Artery Disease (CAD), Myocardial Infarction ([place] ) Additional Family Medical History / Comment(s): Father of [place]-pt unsure what age,. Mother Family Medical History: CVA/TIA Medications and Allergies Home Medications Medication Instructions Recorded Confirmed Type Cholecalciferol [Vitamin D3] 1,000 unit PO DAILY 10/02/13 12/30/17 History FLUoxetine HCL [PROzac] 40 mg PO DAILY 10/02/13 12/30/17 History Levothyroxine Sodium [Synthroid] 50 mcg PO DAILY 10/02/13 12/30/17 History Aspirin EC [Ecotrin Low Dose] 81 mg PO DAILY 12/23/15 12/30/17 History Atorvastatin [Lipitor] 20 mg PO HS 12/23/15 12/30/17 History Timolol Maleate 1 drop BOTH EYES QAM 12/23/15 12/30/17 History rOPINIRole HCL [Requip] 3 mg PO HS 12/23/15 12/30/17 History Omeprazole [PriLOSEC] 20 mg PO DAILY 01/28/17 12/30/17 History Donepezil HCl [Aricept] 5 mg PO HS 10/15/17 12/30/17 History HYDROcodone/APAP 5-325MG [[place] 5] 1 - 2 each PO Q4-6H PRN #60 tab 10/24/17 Rx Rivaroxaban [Xarelto] 10 mg PO DAILY tab 10/24/17 12/30/17 Rx ALPRAZolam [Xanax] 0.25 mg PO HS PRN 12/25/17 12/30/17 History Acetaminophen [Tylenol Arthritis] 650 mg PO Q6H PRN 12/25/17 12/30/17 History Diclofenac Sodium [Voltaren Gel] 2 - 4 gram TOPICAL HS 12/25/17 12/30/17 History Ferrous Sulfate [Iron (65 MG 325 mg PO DAILY 12/25/17 12/30/17 History Elemental)] Ibuprofen [Motrin Ib] 200 - 400 mg PO Q6H PRN 12/25/17 12/30/17 History Latanoprost Ophth [Xalatan 0.005%] 1 drops BOTH EYES HS 12/25/17 12/30/17 History Potassium Chloride ER [K-Dur 10] 5 meq PO DAILY 12/25/17 12/30/17 History Lisinopril [Prinivil] 5 mg PO DAILY 12/30/17 12/30/17 History Allergies Allergy/AdvReac Type Severity Reaction Status Date / Time No Known Allergies Allergy Verified 12/30/17 06:45 Physical Exam Osteopathic Statement: *. No significant issues noted on an osteopathic structural exam other than those noted in the History and Physical/Consult. Vitals: Vital Signs Temp Pulse Pulse Resp BP Pulse Ox 12/31/17 07:00 97.5 F L 80 101/56 12/31/17 00:00 98.3 F 79 16 93/53 100 12/30/17 19:48 97.4 F L 76 16 85/47 100 12/30/17 14:38 72/44 12/30/17 14:35 98.0 F 70 15 70/42 95 12/30/17 13:30 66 77/50 12/30/17 12:30 101 H 68/37 12/30/17 12:15 98 71/43 12/30/17 12:00 98 97/80 12/30/17 11:45 92 63/40 12/30/17 11:30 108 H 110/68 12/30/17 11:15 96 85/50 12/30/17 11:13 98/58 12/30/17 11:00 96.7 F L 63 14 98/56 Intake and Output 12/30/17 12/31/17 12/31/17 22:59 06:59 14:59 Intake Total 350 900 Balance 350 900 Intake: Intake, IV Titration 350 900 Amount Sodium Chloride 0.9% 1, 350 900 000 ml @ 100 mls/hr IV . Q10H COUNT INCLUDES THE [facility] Rx#:[id number] No acute distress, poor historian, nasal O2 in place. HEENT examination is grossly unremarkable. Mucous membranes are moist. No oral lesions. Neck supple. Full range of motion. No adenopathy thyromegaly or neck vein distention. Cardiovascular examination reveals regular rhythm rate. S1-S2 normal. No S3 or S4. No discernible murmur noted. Lungs reveal clear breath sounds. Her sounds are equal bilaterally. No adventitious lung sounds including wheezes rhonchi or crackles. Abdomen soft bowel sounds are heard. No masses or tenderness. Extremities are intact. No cyanosis clubbing or edema. Skin is without rash or lesion. Neurologic examination is brief but nonfocal. Results - Laboratory Findings CBC and BMP: 12/31/17 07:27 12/31/17 07:27 Abnormal lab findings: Abnormal Labs 12/30/17 12/30/17 12/30/17 06:52 16:17 21:12 RBC Hgb Hct MCV Sodium 134 L Chloride Carbon Dioxide 21 L BUN Glucose Plasma Lactic Acid Ankur 2.9 H* 2.9 H* Total Protein Albumin 12/31/17 12/31/17 07:27 07:27 RBC 2.37 L Hgb 7.7 L D Hct 23.8 L MCV 100.6 H Sodium 135 L Chloride 109 H Carbon Dioxide 19 L BUN 23 H Glucose 115 H Plasma Lactic Acid Ankur Total Protein 4.4 L Albumin 2.2 L - Diagnostic Findings Chest x-ray: report reviewed (Labs x-rays and medications are all reviewed.), image reviewed Assessment and Plan Assessment: Assessment Postop day #1, status post removal of hardware and left hip and femoral head replacement, secondary to a failing internal fixation of the left hip. Postoperative hypotension, which responded nicely to fluid resuscitation. The patient's currently normotensive. History of hypothyroidism History of hypertension History of anemia History of gastroesophageal reflux disease History of CVA History of dementia History of depression History of hypothyroidism Plan: Plan dated 12/31/2017 White count is 7.4, hemoglobin 7.7 and hematocrit 23.8. Pletal is 204,000. Sodium 135 potassium 4 chloride 109 CO2 19 anion gap normal BUN 23 and creatinine 0.81. She had 2 lactic acid done on the both of which were 2.9. Medications are appropriate. No chest x-ray to speak of. Currently the patient's doing well. We'll continue to see as needed. She is a DO NOT RESUSCITATE patient. Time with Patient: Greater than 30
[2017-12-31 11:16] LABS: Glucose,Whole Blood 129 mg/dL (75-99)
--- NOTE | 2017-12-31 11:28 | CT ---
EXAMINATION TYPE: CT brain wo con for TPA DATE OF EXAM: 12/31/2017 HISTORY: CODE Stroke . Left-sided facial droop and slurred speech. CT DLP: 1887.60 mGycm. Automated Exposure Control for Dose Reduction was Utilized. TECHNIQUE: CT scan of the head is performed without contrast. COMPARISON: CT brain April 04, 2014. MRI brain June 15, 2016 FINDINGS: Exam noted suboptimal as there is motion artifact degradation for reference axial images 22 through 25. There is no obvious acute intracranial hemorrhage or midline shift identified. There i s diffuse ventricular and sulcal prominence consistent with diffuse age-related cerebral atrophy. Th ere is low-attenuation in the periventricular white matter consistent with chronic small vessel ische stephanie change. Vascular consultation distal internal carotid arteries is redemonstrated bilaterally. Th e globes are intact and the visualized sinuses are clear. IMPRESSION: Suboptimal study with motion artifact degradation. No acute intracranial hemorrhage or mi dline shift. There is moderate diffuse age-related cerebral atrophy and chronic small vessel ischemi c change redemonstrated. Some interval progression in findings noted from 2014 CT.
--- NOTE | 2017-12-31 12:19 | XR ---
EXAMINATION TYPE: XR Hip Limited LT DATE OF EXAM: 12/31/2017 COMPARISON: NONE HISTORY: Postop TECHNIQUE: One view submitted. FINDINGS: There is a prosthetic hip in near anatomic alignment. There is soft tissue edema and emphysema. IMPRESSION: 1. Postoperative change. Appears in near-anatomic alignment.
--- NOTE | 2017-12-31 13:33 | P.PN ---
Subjective Progress Note Date: 12/31/17 82-year-old female, patient of Dr. Pimentel. She has a known past medical history hypothyroidism, hypertension, anemia, GERD, CVA, dementia, depression and side. Patient had a fall in October and had fractured her left hip. She underwent open reduction and internal fixation of the left hip with Dr. Pepper. She was placed on Xarelto and aspirin for DVT prophylaxis. Patient still is complaining of pain of the left hip. She was diagnosed with failing the internal fixation for displaced intertrochanteric fracture of the left hip. She underwent removal of hardware and femoral head replacement on the left hip. Patient is currently lying in bed comfortably. No evidence of any distress. She denies any chest pain or shortness of breath. Denies any nausea or vomiting. Does report some mild pain in that left hip. We have been consulted for medical management. 12/31/2017 patient's blood pressure has shown improvement after multiple fluid boluses. This morning around 10:15 nursing staff reported that patient started to have a left facial droop and some slurring of her speech. Code stroke was called. Computed tomography scan of the brain completed which was a sub- optimal study with motion artifact. Shows no acute intracranial hemorrhage or midline shift. There is moderate diffuse age-related cerebral atrophy and chronic small vessel ischemic change. Some interval progression and findings noted from 2014 CAT scan. Neurology has been consulted. Patient was restarted on her aspirin and Xarelto for DVT prophylaxis and stroke prevention. EKG normal sinus rhythm troponin showing slightly elevated at 0.05 8 repeat troponins are ordered. Patient did have a drop of her hemoglobin down to 7.7 she did have a large estimated blood loss. She is currently on iron. Lactic acid is 2.9. Patient denies any chest pain or shortness of breath. Denies any nausea or vomiting. Denies any bowel movement changes or urinary symptoms. Also per nursing there was concerns about a possible dislocated hip. X-ray completed showing what appears to be an near anatomic. Objective - Vital Signs Vital signs: Vital Signs Temp 97.5 F L 12/31/17 07:00 Pulse 80 12/31/17 07:00 Resp 16 12/31/17 00:00 BP 101/56 12/31/17 07:00 Pulse Ox 100 12/31/17 00:00 Intake & Output 09/12/31/17 12/31/17 18:59 06:59 18:59 Intake Total 2851 1250 Output Total 400 Balance 2451 1250 Weight 48.534 kg Intake: IV 1851 Intake, IV Titration 1000 1250 Amount Sodium Chloride 0.9% 1, 1250 000 ml @ 100 mls/hr IV . Q10H [facility] Rx#:[id number] Sodium Chloride 0.9% 500 1000 ml @ 999 mls/hr IV .Q31M ONE Rx#:[id number] Output: Estimated Blood Loss 400 Other: Voiding Method Toilet Bedside Commode Incontinent - Exam Head normocephalic Neck supple Lungs clear to auscultation bilaterally no wheezing or crackles Heart regular rate and rhythm S1-S2, no rub or gallop Abdomen is soft nontender nondistended positive bowel sounds no hepatosplenomegaly Extremities no edema Neuro alert and orientated to 3. Left-sided facial droop. Some slurred speech noted. Hand teacher aide equal bilaterally lower extremity strength equal bilaterally - Labs CBC & Chem 7: 12/31/17 07:27 12/31/17 07:27 Labs: Abnormal Lab Results - Last 24 Hours (Table) 12/30/17 12/30/17 12/31/17 Range/Units 16:17 21:12 07:27 RBC 2.37 L (3.80-5.40) m/uL Hgb 7.7 L D (11.4-16.0) gm/dL Hct 23.8 L (34.0-46.0) % MCV 100.6 H (80.0-100.0) fL Sodium (137-145) mmol/L Chloride (98-107) mmol/L Carbon Dioxide (22-30) mmol/L BUN (7-17) mg/dL Glucose (74-99) mg/dL POC Glucose (mg/dL) (75-99) mg/dL Plasma Lactic Acid Ankur 2.9 H* 2.9 H* (0.7-2.0) mmol/L Troponin I (0.000-0.034) ng/mL Total Protein (6.3-8.2) g/dL Albumin (3.5-5.0) g/dL 12/31/17 12/31/17 12/31/17 Range/Units 07:27 07:27 10:57 RBC (3.80-5.40) m/uL Hgb (11.4-16.0) gm/dL Hct (34.0-46.0) % MCV (80.0-100.0) fL Sodium 135 L (137-145) mmol/L Chloride 109 H (98-107) mmol/L Carbon Dioxide 19 L (22-30) mmol/L BUN 23 H (7-17) mg/dL Glucose 115 H (74-99) mg/dL POC Glucose (mg/dL) 129 H (75-99) mg/dL Plasma Lactic Acid Ankur (0.7-2.0) mmol/L Troponin I 0.058 H* (0.000-0.034) ng/mL Total Protein 4.4 L (6.3-8.2) g/dL Albumin 2.2 L (3.5-5.0) g/dL Microbiology - Last 24 Hours (Table) 12/30/17 08:30 Gram Stain - Preliminary Hip - Left Wound Culture - Preliminary 12/30/17 08:30 Anaerobic Culture - Preliminary Hip - Left Assessment and Plan Assessment: 1. Left hip fracture failing internal fixation of the left hip. Status post removal of hardware and femoral head replacement of left. We'll have nursing clarify if Xarelto and aspirin are being restarted for DVT prophylaxis 2. History of CVA 3. History of dementia 4. Hypothyroidism continue Synthroid 5. Essential hypertension: Blood pressure on the lower side after surgery we' ll place parameters around the lisinopril. Continue to monitor 6. Hyperlipidemia continue statin 7. History of anxiety and depression: Continue Xanax 8. Unexpected Postop hypotension improved with IV fluids. Was seen by the critical care service. 9. Left facial droop and slurred speech. Concerns for a new stroke. Computed tomography scan of the brain showing no acute intracranial change. Neurology has been consulted. Continue aspirin and Xarelto. Echo completed in October 2017 shows an EF of 55-60%. We'll place patient on telemetry monitoring to monitor any arrhythmias. Check carotid ultrasound. GI prophylaxis omeprazole and DVT prophylaxis Xarelto I performed an examination of the patient and discussed their management with the physician Crts. I have reviewed the Physician Crts's notes and agree with the documented findings and plan of care
[2017-12-31] MEDS ORDERED: SODIUM FERRIC GLUCONAT-SUCROSE 125 MG in SODIUM CHLORIDE 0.9% 100 ML IVPB ONE (18:00)
--- NOTE | 2017-12-31 18:50 | US ---
EXAMINATION TYPE: US carotid duplex BILAT DATE OF EXAM: 12/31/2017 COMPARISON: NONE CLINICAL HISTORY: CVA. CVA EXAM MEASUREMENTS: RIGHT: Peak Systolic Velocity (PSV) cm/sec ----- Right CCA: 75.5 ----- Right ICA: 106.0 ----- Right ECA: 111.3 ICA/CCA ratio: 1.4 RIGHT: End Diastole cm/sec ----- Right CCA: 12.9 ----- Right ICA: 19.3 ----- Right ECA: 0.0 LEFT: Peak Systolic Velocity (PSV) cm/sec ----- Left CCA: 96.8 ----- Left ICA: 127.4 ----- Left ECA: 124.2 ICA/CCA ratio: 1.3 LEFT: End Diastole cm/sec ----- Left CCA: 11.1 ----- Left ICA: 28.9 ----- Left ECA: 0.0 VERTEBRALS (direction of flow): Right Vertebral: Antegrade Left Vertebral: Antegrade IMPRESSION: 1. Mild-moderate plaque bilateral bifurcations, greater on the right. 2. No significant stenosis at this time. 3. Right ECA appears tortuous.
[2017-12-31] MEDS: SODIUM CHLORIDE 0.9% 1,000 ML IV SCH ×2 (20:02→22:59)
[2017-12-31] MEDS: LATANOPROST 0.005% OPHTH DROPS 2.5 ML BTL BOTH EYES SCH (22:12)
[2017-12-31] MEDS: DONEPEZIL 5 MG TAB PO SCH (22:13)
[2017-12-31] MEDS: SENNOSIDES-DOCUSATE SODIUM 1 EACH TAB PO SCH (22:13)
[2017-12-31] MEDS: FERROUS SULFATE 325 MG TAB PO SCH (22:13)
[2017-12-31] MEDS: ATORVASTATIN 20 MG TAB PO SCH (22:13)
--- NOTE | 2017-12-31 22:14 | CONS ---
CONSULTATION DATE OF CONSULTATION: 12/31/2017 CHIEF COMPLAINT: Stroke. HISTORY OF PRESENT ILLNESS: The patient is a pleasant 82-year-old female who is being evaluated by the neurology service per the request of Dr. Pepper for a stroke. The patient was admitted to [facility] after she suffered a fall and underwent a left femoral head replacement arthroplasty yesterday. Postoperatively, the patient had been doing well, but on one of the neuro checks it was noticed that the patient had significant left facial drooping and some dysarthria. A STAT CT scan of the brain was done which showed generalized atrophy and small-vessel ischemic changes with no acute abnormalities seen. A carotid Doppler was done which showed no hemodynamically significant stenosis. The patient is currently on Xarelto and aspirin. At the time of my evaluation, she is lying in her bed and appears to be in no acute distress. She is still having some left facial drooping and dysarthria. She denies any dysphagia and denies any lateralizing numbness or weakness involving the extremities. Her CBC today showed significant anemia with a hemoglobin of 7.7 and hematocrit of 23%. Her comprehensive metabolic profile was normal except for slightly elevated BUN at 23. Her cardiac enzymes showed slightly elevated troponin I at 0.058. PAST MEDICAL HISTORY: 1. Transient ischemic attack. 2. Diabetes. 3. Gastroesophageal reflux disorder. 4. Dyslipidemia. 5. Hypertension. 6. Osteoarthritis. 7. Hypothyroidism. 8. Scoliosis. 9. Chronic low back pain. 10.History of skin cancer. 11.History of hysterectomy and orthopedic surgery as mentioned above. 12.She also has history of cataract surgeries. SOCIAL HISTORY: She denies any tobacco, alcohol or drug use. FAMILY HISTORY: Positive for heart disease, deep venous thrombosis and strokes. HOME MEDICATIONS: Reviewed in the chart. ALLERGIES: NO KNOWN DRUG ALLERGIES. REVIEW OF SYSTEMS: CONSTITUTIONAL: Positive for fatigue. EYES: Negative. ENT: Positive for chronic diminished hearing. CARDIOVASCULAR: Positive for history of bradycardia. RESPIRATORY: Negative. NEUROLOGICAL: As mentioned above. GASTROINTESTINAL: Positive for occasional heartburn. GENITOURINARY: Negative. PSYCHIATRIC: Negative. DERMATOLOGICAL: Positive for history of skin cancer. ENDOCRINE: Positive for diabetes. MUSCULOSKELETAL: As mentioned above. PHYSICAL EXAMINATION: Vital signs show a temperature of 97.2, pulse 80, respiration 16, blood pressure 101/56. GENERAL APPEARANCE: The patient is a well-developed, elderly female who appears to be in no acute distress. HEENT: Normocephalic, atraumatic. Left facial drooping is seen. Extraocular muscles are intact. NECK: Supple with no masses felt. CARDIOVASCULAR: Regular rate and rhythm. ABDOMEN: Nontender, nondistended. Extremities showed no edema or clubbing. NEUROLOGICAL EXAM: The patient is awake and oriented x3. Speech is mildly dysarthric. Language testing is normal. No lateralizing weakness is seen, but her left lower extremity examination is limited due to her recent orthopedic surgery. Light touch sensation was normal in all 4 extremities. Cranial nerve testing showed left facial drooping. IMPRESSION: 1. Acute ischemic stroke. 2. Left facial drooping. 3. Dysarthria. 4. Anemia. RECOMMENDATION: The patient does appear to have suffered an acute ischemic stroke. She continues to have left facial drooping and mild dysarthria. She is already on Xarelto and aspirin. I did review her CT scan of the brain and carotid Doppler, both of which showed no acute abnormalities. The patient is unable to undergo MRI imaging due to her recent orthopedic surgery. I will order a fasting lipid panel, EEG and serum homocystine level. Speech Therapy will be consulted. Continue the rest of your current workup and management. I will continue to follow with you. Further recommendations to follow. Thank you for allowing me to participate in the care of your patient. If you have any questions, please feel free to contact me. KRISTINE / IJN: [id number] /
[2018-01-01] MEDS: ONDANSETRON 4 MG/2 ML VIAL IVP PRN (01:23)
[2018-01-01] MEDS: LEVOTHYROXINE 50 MCG TAB PO SCH (05:47)
[2018-01-01] MEDS: HYDROcodone/APAP 5-325MG 1 EACH TAB PO PRN ×2 (05:48→20:30)
[2018-01-01 08:11] LABS: ALT 14 U/L (9-52); AST 20 U/L (14-36); Alkaline Phosphatase 79 U/L (38-126); Anion Gap 6 mmol/L; Blood Urea Nitrogen 16 mg/dL (7-17); Calcium 8.6 mg/dL (8.4-10.2); Carbon Dioxide 17 mmol/L (22-30); Chloride 111 mmol/L (98-107); Cholesterol 85 mg/dL (<200); Glucose 92 mg/dL (74-99); HDL Cholesterol 36 mg/dL (40-60); LDL Cholesterol,Calculated 35 mg/dL (0-99); Potassium 4.2 mmol/L (3.5-5.1); Sodium 134 mmol/L (137-145); Total Bilirubin 0.3 mg/dL (0.2-1.3); Total Protein 4.3 g/dL (6.3-8.2); Triglycerides 72 mg/dL (<150)
[2018-01-01] MEDS: SODIUM CHLORIDE 0.9% 1,000 ML IV SCH ×3 (08:21→23:25)
[2018-01-01] MEDS ORDERED: ONDANSETRON 4 MG/2 ML VIAL IVP PRN (08:28)
[2018-01-01] MEDS: PANTOPRAZOLE 40 MG TABLET PO SCH (08:30)
--- NOTE | 2018-01-01 08:33 | P.PN ---
Subjective Progress Note Date: 01/01/18 Principal diagnosis: Status post left hip hardware removal and femoral head replacement This is an 82 year-old female post left hip hardware removal and femoral head replacement. This is post-op day 2. The patient was evaluated at the bedside today. She is having nausea this morning. The patient denies abdominal pain, shortness of breath, and chest pain this morning. She states her pain is controlled at this time. The patient has been up with physical therapy. Yesterday, the nursing staff told a code stroke due to facial drooping. The patient was taken down for a stat head CT that revealed no acute bleed or ischemic event. During the multiple transfers in and out of bed the nurse noticed that the patient's left leg was shortened and externally rotated. X- ray of the left hip revealed that the component is well-seated within the acetabulum. The patient did not have increased hip pain at that time. The patient has been evaluated by internal medicine and neurology. She continues on Xarelto. Today, the patient states that she is still not feeling well. Objective - Vital Signs Vital signs: Vital Signs Temp 98.1 F 01/01/18 07:00 Pulse 65 01/01/18 07:00 Resp 16 01/01/18 07:00 BP 109/56 01/01/18 07:00 Pulse Ox 98 01/01/18 07:00 Intake & Output 12/31/17 01/01/18 01/01/18 18:59 06:59 18:59 Intake Total 380 400 Balance 380 400 Intake: Intake, IV Titration 400 Amount Sodium Ferric Gluconat- 400 Sucrose 125 mg In Sodium Chloride 0.9% 100 ml @ 100 mls/hr IVPB ONCE ONE Rx#:[id number] Oral 380 Other: Voiding Method Bedside Commode # Voids 3 1 - Exam The patient does not appear in acute distress. Alert and orientated x2. Dressing is clean dry and intact. Incision appears fine with no erythema or active drainage. Calf is soft and nontender. Good foot and ankle motion without difficulty. Sensation and circulatory status is intact. - Labs CBC & Chem 7: 12/31/17 07:27 01/01/18 07:20 Labs: Abnormal Lab Results - Last 24 Hours (Table) 12/31/17 12/31/17 12/31/17 Range/Units 07:27 10:57 14:24 Sodium (137-145) mmol/L Chloride (98-107) mmol/L Carbon Dioxide (22-30) mmol/L POC Glucose (mg/dL) 129 H (75-99) mg/dL Plasma Lactic Acid Ankur (0.7-2.0) mmol/L Troponin I 0.058 H* 0.048 H* (0.000-0.034) ng/mL Total Protein (6.3-8.2) g/dL Albumin (3.5-5.0) g/dL HDL Cholesterol (40-60) mg/dL 12/31/17 12/31/17 01/01/18 Range/Units 19:06 19:06 07:20 Sodium 134 L (137-145) mmol/L Chloride 111 H (98-107) mmol/L Carbon Dioxide 17 L (22-30) mmol/L POC Glucose (mg/dL) (75-99) mg/dL Plasma Lactic Acid Ankur 0.5 L (0.7-2.0) mmol/L Troponin I 0.040 H* (0.000-0.034) ng/mL Total Protein 4.3 L (6.3-8.2) g/dL Albumin 2.0 L (3.5-5.0) g/dL HDL Cholesterol 36 L (40-60) mg/dL Microbiology - Last 24 Hours (Table) 12/30/17 08:30 Gram Stain - Preliminary Hip - Left Wound Culture - Preliminary Assessment and Plan (1) Failed hardware Current Visit: Yes Status: Acute Code(s): [id number] - SNOMED Code(s): 741022916 (2) Status post hip hemiarthroplasty Current Visit: Yes Status: Acute Code(s): Z96.649 - PRESENCE OF UNSPECIFIED ARTIFICIAL HIP JOINT SNOMED Code(s): 903163924 Plan: 1. Continue pain control 2. Anticoagulation with Xarelto per internal medicine 3. Continue physical therapy and ambulation today. Continue hip precautions with abductor pillow 4. Anticipate discharge to [facility] when cleared medically.
[2018-01-01 09:03] LABS: Basophils % (A) 0 %; Eosinophils # (A) 0.1 k/uL (0-0.7); Eosinophils % (A) 1 %; HCT 21.7 % (34.0-46.0); Hypochromasia Marked; Lymphocytes # (A) 0.8 k/uL (1.0-4.8); Lymphocytes % (A) 10 %; MCH 31.9 pg (25.0-35.0); MCHC 30.3 g/dL (31.0-37.0); MCV 105.4 fL (80.0-100.0); Macrocytosis Moderate; Mean Platelet Volume 7.2; Monocytes # (A) 0.5 k/uL (0-1.0); Monocytes % (A) 7 %; Neutrophils # (A) 5.9 k/uL (1.3-7.7); Neutrophils % (A) 80 %; Platelet Count 214 k/uL (150-450); RBC 2.06 m/uL (3.80-5.40); RDW 13.9 % (11.5-15.5); WBC 7.3 k/uL (3.8-10.6)
[2018-01-01 09:06] LABS: HGB 6.6 gm/dL (11.4-16.0)
--- NOTE | 2018-01-01 09:17 | XR ---
EXAMINATION TYPE: XR chest 1V portable DATE OF EXAM: 01/01/2018 COMPARISON: Prior chest x-ray dated 10/20/2017 HISTORY: Cough and shortness of breath TECHNIQUE: Single frontal view of the chest is obtained. FINDINGS: Patient is rotated. Suspect an underlying scoliosis. There are overlying cardiac leads. Cos tochondral calcifications are noted. There is no focal air space opacity, pleural effusion, or pneumo thorax seen. The cardiac silhouette size is stable accounting for differences in technique, heart is enlarged. The osseous structures are intact. IMPRESSION: No acute process.
[2018-01-01] MEDS: FLUoxetine HCL 20 MG CAP PO SCH (11:05)
[2018-01-01] MEDS: POTASSIUM CHLORIDE ER 10 MEQ TAB.ER.PRT PO SCH (11:05)
[2018-01-01] MEDS: CHOLECALCIFEROL 1,000 UNIT TAB PO SCH (11:06)
[2018-01-01] MEDS: RIVAROXABAN 10 MG TAB PO SCH (11:06)
[2018-01-01] MEDS: FERROUS SULFATE 325 MG TAB PO SCH ×2 (11:06→20:32)
[2018-01-01] MEDS: ASPIRIN 81 MG PO SCH (11:06)
--- NOTE | 2018-01-01 11:13 | P.CRDCN ---
History of Present Illness History of present illness: Mrs. Hyde is a pleasant 82-year-old female past medical history significant for diabetes mellitus, hypertension, dyslipidemia, gastroesophageal reflux disease, aortic stenosis and TIA. She follows with Dr. Hargrove in the office. We have been asked to see her in consultation secondary to troponin elevation. She came to the hospital 12/30 for elective removal of left hip nail with left femoral head replacement arthroplasty. She initially underwent left hip open reduction internal fixation with screw placement secondary to a fall in October. She had significant blood loss during surgery with initial hemoglobin on admission of 12.6 down to 6.6 today. Platelets 214, sodium 134, potassium 4.2, creatinine 0.66, lactic acid 2.9 down to 0.5, troponin 0.058, 0.048, 0.040. At the time of my exam she is seen sitting up in bed in mild distress secondary to pain in the left hip and leg. She denies ever having had symptoms of chest pain, shortness of breath, dizziness or palpitations. She states she has been coughing frequently over the previous 24 hours and is bringing up clear sputum. She also denies PND or orthopnea. EKG obtained reveals sinus mechanism with no acute ST or T wave abnormalities noted. Telemetry tracings have been unremarkable. Current cardiac medications include lisinopril 5 mg daily, Lipitor 20 mg daily and aspirin 81 mg daily. She is also on Xarelto for DVT prophylaxis, Prilosec, Requip, Synthroid, Prozac, Aricept and Xanax. After surgery with or with some concern of some left facial drooping. CT of the brain revealed no acute intracranial hemorrhage or midline shift moderate diffuse age-related cerebral atrophy and chronic small vessel ischemic changes redemonstrated this was a suboptimal study with motion artifact. Neurology has also been consulted to see the patient. Review of Systems At the time of my exam: CONSTITUTIONAL: Denies fever. Denies chills. EYES: Denies blurred vision. Denies vision changes. Denies eye pain. EARS, NOSE, MOUTH & THROAT: Denies headache. Denies sore throat. Denies ear pain. CARDIOVASCULAR: Denies chest pain. Denies shortness of breath. Denies orthopnea. Denies PND. Denies palpitations. RESPIRATORY: Denies cough. GASTROINTESTINAL: Denies abdominal pain. Denies diarrhea. Denies constipation. Denies nausea. Denies vomiting. MUSCULOSKELETAL: Complains of pain to the left hip and leg. INTEGUMENTARY: Denies pruitis. Denies rash. NEUROLOGIC: Denies numbness. Denies tingling. Denies weakness. PSYCHIATRIC: Denies anxiety. Denies depression. ENDOCRINE: Denies fatigue. Denies weight change. Denies polydipsia. Denies polyurina. GENITOURINARY: Denies burning, hematuria or urgency with micturation. HEMATOLOGIC: Denies history of anemia. Denies bleeding. Past Medical History Past Medical History: Cancer, CVA/TIA, Diabetes Mellitus, Eye Disorder, GERD/ Reflux, Hyperlipidemia, Hypertension, Osteoarthritis (OA), Thyroid Disorder Additional Past Medical History / Comment(s): HX: DM, NO RX SINCE WGT LOSS. SCOLIOSIS, BACK PAIN. SKIN CA, MULT. CVA, SL generalized weakness residual, TIA 04/2013 (pt/francisco j think she has a couple). Irregular heart beat OCC, Bradycardia at times, MINOR HEART MURMUR. GLAUCOMA. LT HIP FX 10/2017, HAS IRRITATING HARDWARE NOW. History of Any Multi-Drug Resistant Organisms: None Reported Past Surgical History: Hysterectomy Additional Past Surgical History / Comment(s): Colonoscopies w/ polypectomy- benign. MAIRA CATARACTS. Epidural INJ Lumbar Spine, LAST 10/07/17. 10/22/17 ORIF LT HIP. Past Anesthesia/Blood Transfusion Reactions: No Reported Reaction Smoking Status: Never smoker - Past Family History Son(s) Family Medical History: Deep Vein Thrombosis (DVT) Father Family Medical History: Coronary Artery Disease (CAD), Myocardial Infarction ([place] ) Additional Family Medical History / Comment(s): Father of [place]-pt unsure what age,. Mother Family Medical History: CVA/TIA Medications and Allergies Home Medications Medication Instructions Recorded Confirmed Type Cholecalciferol [Vitamin D3] 1,000 unit PO DAILY 10/02/13 12/30/17 History FLUoxetine HCL [PROzac] 40 mg PO DAILY 10/02/13 12/30/17 History Levothyroxine Sodium [Synthroid] 50 mcg PO DAILY 10/02/13 12/30/17 History Aspirin EC [Ecotrin Low Dose] 81 mg PO DAILY 12/23/15 12/30/17 History Atorvastatin [Lipitor] 20 mg PO HS 12/23/15 12/30/17 History Timolol Maleate 1 drop BOTH EYES QAM 12/23/15 12/30/17 History rOPINIRole HCL [Requip] 3 mg PO HS 12/23/15 12/30/17 History Omeprazole [PriLOSEC] 20 mg PO DAILY 01/28/17 12/30/17 History Donepezil HCl [Aricept] 5 mg PO HS 10/15/17 12/30/17 History HYDROcodone/APAP 5-325MG [[place] 5] 1 - 2 each PO Q4-6H PRN #60 tab 10/24/17 Rx Rivaroxaban [Xarelto] 10 mg PO DAILY tab 10/24/17 12/30/17 Rx ALPRAZolam [Xanax] 0.25 mg PO HS PRN 12/25/17 12/30/17 History Acetaminophen [Tylenol Arthritis] 650 mg PO Q6H PRN 12/25/17 12/30/17 History Diclofenac Sodium [Voltaren Gel] 2 - 4 gram TOPICAL HS 12/25/17 12/30/17 History Ferrous Sulfate [Iron (65 MG 325 mg PO DAILY 12/25/17 12/30/17 History Elemental)] Ibuprofen [Motrin Ib] 200 - 400 mg PO Q6H PRN 12/25/17 12/30/17 History Latanoprost Ophth [Xalatan 0.005%] 1 drops BOTH EYES HS 12/25/17 12/30/17 History Potassium Chloride ER [K-Dur 10] 5 meq PO DAILY 12/25/17 12/30/17 History Lisinopril [Prinivil] 5 mg PO DAILY 12/30/17 12/30/17 History Allergies Allergy/AdvReac Type Severity Reaction Status Date / Time No Known Allergies Allergy Verified 12/30/17 06:45 Physical Exam Vitals: Vital Signs Temp Pulse Pulse Resp BP Pulse Ox 01/01/18 07:00 98.1 F 65 16 109/56 98 01/01/18 05:53 101/54 01/01/18 00:56 99.0 F 73 16 136/70 97 12/31/17 22:31 107/54 12/31/17 19:28 97.6 F 70 16 90/51 99 12/31/17 14:22 97.2 F L 66 83/50 92 L Intake and Output 12/31/17 01/01/18 01/01/18 22:59 06:59 14:59 Intake Total 600 Balance 600 Intake: Intake, IV Titration 400 Amount Sodium Ferric Gluconat- 400 Sucrose 125 mg In Sodium Chloride 0.9% 100 ml @ 100 mls/hr IVPB ONCE ONE Rx#:[id number] Oral 200 Other: Voiding Method Bedside Commode Bedside Commode # Voids 1 Blood pressure 109/56 heart rate 65 afebrile maintaining oxygen saturation on room air GENERAL: Well-appearing, well-nourished and in no acute distress. NECK: Supple without JVD or thyromegaly. LUNGS: Breath sounds clear to auscultation bilaterally. Respiration equal and unlabored. No wheezes, rales or rhonchi. HEART: Regular rate and rhythm with systolic ejection murmur at the base, no rubs or gallops. S1 and S2 heard. EXTREMITIES: Normal range of motion, no edema. No clubbing or cyanosis. Peripheral pulses intact. Results 01/01/18 07:20 01/01/18 07:20 Cardiac Enzymes 12/31/17 12/31/17 12/31/17 Range/Units 07:27 14:24 19:06 AST (14-36) U/L Troponin I 0.058 H* 0.048 H* 0.040 H* (0.000-0.034) ng/mL 01/01/18 Range/Units 07:20 AST 20 (14-36) U/L Troponin I (0.000-0.034) ng/mL Lipids 01/01/18 Range/Units 07:20 Triglycerides 72 (<150) mg/dL Cholesterol 85 (<200) mg/dL HDL Cholesterol 36 L (40-60) mg/dL CBC 01/01/18 Range/Units 07:20 WBC 7.3 (3.8-10.6) k/uL RBC 2.06 L (3.80-5.40) m/uL Hgb 6.6 L* (11.4-16.0) gm/dL Hct 21.7 L (34.0-46.0) % Plt Count 214 (150-450) k/uL Comprehensive Metabolic Panel 01/01/18 Range/Units 07:20 Sodium 134 L (137-145) mmol/L Potassium 4.2 (3.5-5.1) mmol/L Chloride 111 H (98-107) mmol/L Carbon Dioxide 17 L (22-30) mmol/L BUN 16 (7-17) mg/dL Creatinine 0.66 (0.52-1.04) mg/dL Glucose 92 (74-99) mg/dL Calcium 8.6 (8.4-10.2) mg/dL AST 20 (14-36) U/L ALT 14 (9-52) U/L Alkaline Phosphatase 79 (38-126) U/L Total Protein 4.3 L (6.3-8.2) g/dL Albumin 2.0 L (3.5-5.0) g/dL Current Medications Generic Name Dose Route Start Last Admin Trade Name Freq PRN Reason Stop Dose Admin Hydrocodone Bitart/Acetaminophen 1 each 12/30/17 10:01 12/30/17 23:51 [place] 5-325 PO 1 each Q4HR PRN Administration Pain Scale 1 to 5 Hydrocodone Bitart/Acetaminophen 2 each 12/30/17 10:01 01/01/18 05:48 [place] 5-325 PO 2 each Q6HR PRN Administration Pain Scale 6 to 10 Alprazolam 0.25 mg 12/30/17 11:12 Xanax PO HS PRN Anxiety Aspirin 81 mg 12/31/17 09:00 12/31/17 08:53 Aspirin PO 81 mg DAILY RUFINA Administration Atorvastatin Calcium 20 mg 12/30/17 21:00 12/31/17 22:13 Lipitor PO 20 mg HS RUFINA Administration Cholecalciferol 1,000 unit 12/31/17 09:00 12/31/17 08:53 Vitamin D3 PO 1,000 unit DAILY RUFINA Administration Donepezil HCl 5 mg 12/30/17 21:00 12/31/17 22:13 Aricept PO 5 mg HS RUFINA Administration Ferrous Sulfate 325 mg 12/31/17 21:00 12/31/17 22:13 Feosol PO 325 mg BID RUFINA Administration Fluoxetine HCl 40 mg 12/31/17 09:00 12/31/17 08:53 Prozac PO 40 mg DAILY RUFINA Administration Hydromorphone HCl 0.125 mg 12/30/17 10:01 Dilaudid IVP Q3HR PRN Pain Scale 1 to 3 Hydromorphone HCl 0.25 mg 12/30/17 10:01 Dilaudid IVP Q3HR PRN Pain Scale 4 to 6 Hydromorphone HCl 0.5 mg 12/30/17 10:01 12/31/17 04:56 Dilaudid IVP 0.5 mg Q3HR PRN Administration Pain Scale 7 to 10 Hydroxyzine Pamoate 25 mg 12/30/17 10:01 Vistaril PO Q4HR PRN Nausea, Anxiety, Pain Control Sodium Chloride 1,000 mls @ 100 mls/hr 12/30/17 13:15 01/01/18 08:21 Saline 0.9% IV Not Given .Q10H RUFINA Latanoprost 1 drops 12/30/17 21:00 12/31/17 22:12 Xalatan 0.005% BOTH EYES 1 drops HS RUFINA Administration Levothyroxine Sodium 50 mcg 12/31/17 06:30 01/01/18 05:47 Synthroid PO 50 mcg DAILY@0630 RUFINA Administration Lidocaine HCl 0.1 ml 12/30/17 05:19 12/30/17 07:00 .Xylocaine 1% Inj (10mg/Ml) For Iv Start INTRADERMA 0.1 ml PER PROTOCOL PRN Administration IV Start Magnesium Hydroxide 2,400 mg 12/30/17 10:01 Milk Of Magnesia PO DAILY PRN Constipation Naloxone HCl 0.2 mg 12/30/17 10:01 Narcan IV Q2M PRN Opioid Reversal Ondansetron HCl 4 mg 01/01/18 08:28 Zofran IVP Q8HR PRN Nausea And Vomiting Pantoprazole Sodium 40 mg 12/31/17 07:30 01/01/18 08:30 Protonix PO 40 mg [id number] RUFINA Administration Potassium Chloride 5 meq 12/31/17 09:00 12/31/17 08:53 K-Dur 10 PO 5 meq DAILY RUFINA Administration Rivaroxaban 10 mg 12/31/17 09:00 12/31/17 08:54 Xarelto PO 10 mg DAILY RUFINA Administration Ropinirole HCl 3 mg 12/30/17 21:00 12/31/17 22:13 Requip PO 3 mg HS RUFINA Administration Senna/Docusate Sodium 2 each 12/30/17 21:00 12/31/17 22:13 Senokot-S PO 2 each HS RUFINA Administration Temazepam 15 mg 12/30/17 10:01 Restoril PO HS PRN Insomnia Timolol Maleate 1 drops 12/31/17 09:00 12/31/17 08:55 Timoptic BOTH EYES 1 drops QAM RUFINA Administration Intake and Output 12/31/17 01/01/18 01/01/18 22:59 06:59 14:59 Intake Total 600 Balance 600 Intake: Intake, IV Titration 400 Amount Sodium Ferric Gluconat- 400 Sucrose 125 mg In Sodium Chloride 0.9% 100 ml @ 100 mls/hr IVPB ONCE ONE Rx#:[id number] Oral 200 Other: Voiding Method Bedside Commode Bedside Commode # Voids 1 01/01/18 07:20 01/01/18 07:20 Assessment and Plan Assessment: ASSESSMENT Elevated troponin, not indicative of an acute coronary event. Related to oxygen supply demand mismatch in the presence of acute blood loss anemia. Acute ischemic stroke per neurology Left hip fracture with internal fixation s/p hardware removal Hypertension with post-operative hypotension. Dyslipidemia PLAN Obtain 2D echocardiogram and doppler study to assess cardiac structure and function. Troponin elevation secondary to acute blood loss anemia causing an oxygen supply and demand mismatch. Lisinopril has been held since surgery secondary to hypotension. Resume when appropriate per primary medical team. Follow up with Dr. Hargrove upon discharge. Thank you kindly for this consultation. Nurse Practitioner note has been reviewed, I agree with a documented findings and plan of care. Patient was seen and examined.
--- NOTE | 2018-01-01 11:23 | P.PN ---
Subjective Progress Note Date: 01/01/18 Principal diagnosis: There is post removal of hardware and left hip and femoral head replacement. post-op hypotension Pulmonary consult dated 12/31/2017 83-year-old female who is status post left femoral head replacement arthroplasty. She is postop day #1. We were consulted because initially when she came back to the floor, she was hypotensive. She received 1-1/2 L of fluid and her blood pressure normalized. Today she sitting comfortably in bed. She is upright. She's got some nasal O2 wanted to liters. Denies any complaints. Feels well. No pain. The patient's blood pressure is now back to normal. Apparently we are consulted a yesterday but I was not called. The surgery was done by Dr. Pepper. The patient has a history of hypothyroidism hypertension and anemia GERD CVA dementia depression and thyroid disease. Patient apparently had a fall in October and had a fractured left hip. She underwent a open reduction and internal fixation of the left hip with Dr. Pepper. She was diagnosed as having a failing of the internal fixation of the left hip. Hardware was removed and she had femoral head replacement on the left hip. Again, although she was hypotensive immediately afterwards, she is doing much better now just with fluid resuscitation. On 01/01/2018 patient is seen in follow-up on 3 surgical floor. She is awake and alert, in no acute distress, room air pulse ox is 98%, she is afebrile, hemodynamically stable, yesterday received IV fluid resuscitation, and her hypotension has resolved. No acute events overnight, no specific complaints, no chest pain or shortness of breath. Today's chest x-ray has been reviewed, showed no acute process. His labs showed WBC of 7.3, hemoglobin is 6.6, patient will be transfused with 1 unit of packed red blood cells. Objective - Vital Signs Vital signs: Vital Signs Temp 98.1 F 01/01/18 07:00 Pulse 65 01/01/18 07:00 Resp 16 01/01/18 07:00 BP 109/56 01/01/18 07:00 Pulse Ox 98 01/01/18 07:00 Intake & Output 12/31/17 01/01/18 01/01/18 18:59 06:59 18:59 Intake Total 380 400 Balance 380 400 Intake: Intake, IV Titration 400 Amount Sodium Ferric Gluconat- 400 Sucrose 125 mg In Sodium Chloride 0.9% 100 ml @ 100 mls/hr IVPB ONCE ONE Rx#:[id number] Oral 380 Other: Voiding Method Bedside Commode Bedside Commode # Voids 3 1 - Exam No acute distress, poor historian, nasal O2 in place. HEENT examination is grossly unremarkable. Mucous membranes are moist. No oral lesions. Neck supple. Full range of motion. No adenopathy thyromegaly or neck vein distention. Cardiovascular examination reveals regular rhythm rate. S1-S2 normal. No S3 or S4. No discernible murmur noted. Lungs reveal clear breath sounds. Her sounds are equal bilaterally. No adventitious lung sounds including wheezes rhonchi or crackles. Abdomen soft bowel sounds are heard. No masses or tenderness. Extremities are intact. No cyanosis clubbing or edema. Skin is without rash or lesion. Neurologic examination is brief but nonfocal. - Labs CBC & Chem 7: 01/01/18 07:20 01/01/18 07:20 Labs: Abnormal Lab Results - Last 24 Hours (Table) 12/31/17 12/31/17 12/31/17 Range/Units 07:27 14:24 19:06 RBC (3.80-5.40) m/uL Hgb (11.4-16.0) gm/dL Hct (34.0-46.0) % MCV (80.0-100.0) fL MCHC (31.0-37.0) g/dL Lymphocytes # (1.0-4.8) k/uL Sodium (137-145) mmol/L Chloride (98-107) mmol/L Carbon Dioxide (22-30) mmol/L Plasma Lactic Acid Ankur (0.7-2.0) mmol/L Troponin I 0.058 H* 0.048 H* 0.040 H* (0.000-0.034) ng/mL Total Protein (6.3-8.2) g/dL Albumin (3.5-5.0) g/dL HDL Cholesterol (40-60) mg/dL 12/31/17 01/01/18 01/01/18 Range/Units 19:06 07:20 07:20 RBC 2.06 L (3.80-5.40) m/uL Hgb 6.6 L* (11.4-16.0) gm/dL Hct 21.7 L (34.0-46.0) % MCV 105.4 H (80.0-100.0) fL MCHC 30.3 L (31.0-37.0) g/dL Lymphocytes # 0.8 L (1.0-4.8) k/uL Sodium 134 L (137-145) mmol/L Chloride 111 H (98-107) mmol/L Carbon Dioxide 17 L (22-30) mmol/L Plasma Lactic Acid Ankur 0.5 L (0.7-2.0) mmol/L Troponin I (0.000-0.034) ng/mL Total Protein 4.3 L (6.3-8.2) g/dL Albumin 2.0 L (3.5-5.0) g/dL HDL Cholesterol 36 L (40-60) mg/dL Microbiology - Last 24 Hours (Table) 12/30/17 08:30 Gram Stain - Final Hip - Left Wound Culture - Final Assessment and Plan Plan: Assessment: Postop day #2, status post removal of hardware and left hip and femoral head replacement, secondary to a failing internal fixation of the left hip. Postoperative hypotension, which responded nicely to fluid resuscitation. The patient's currently normotensive. History of hypothyroidism History of hypertension History of anemia History of gastroesophageal reflux disease History of CVA History of dementia History of depression History of hypothyroidism Plan: Patient is without specific complaints, vital signs are stable, she will be transfused with 1 unit of packed red blood cells for hemoglobin of 6.6. No chest pain or shortness of breath. Today's chest x-ray showed no acute process. Has resolved, she responded well to IV fluid resuscitation. We will see the patient on as-needed basis. I performed a history & physical examination of the patient and discussed their management with my nurse practitioner, Ailyn Granados. I reviewed the nurse practitioner's note and agree with the documented findings and plan of care. Lung sounds are clear. The findings and the impression was discussed with the patient. I attest to the documentation by the nurse practitioner. Time with Patient: Less than 30
[2018-01-01] MEDS: TIMOLOL 0.25% OPHTH DROPS 5 ML BTL BOTH EYES SCH (12:50)
--- NOTE | 2018-01-01 14:51 | P.PN ---
Subjective Progress Note Date: 01/01/18 82-year-old female, patient of Dr. Pimentel. She has a known past medical history hypothyroidism, hypertension, anemia, GERD, CVA, dementia, depression and side. Patient had a fall in October and had fractured her left hip. She underwent open reduction and internal fixation of the left hip with Dr. Pepper. She was placed on Xarelto and aspirin for DVT prophylaxis. Patient still is complaining of pain of the left hip. She was diagnosed with failing the internal fixation for displaced intertrochanteric fracture of the left hip. She underwent removal of hardware and femoral head replacement on the left hip. Patient is currently lying in bed comfortably. No evidence of any distress. She denies any chest pain or shortness of breath. Denies any nausea or vomiting. Does report some mild pain in that left hip. We have been consulted for medical management. 12/31/2017 patient's blood pressure has shown improvement after multiple fluid boluses. This morning around 10:15 nursing staff reported that patient started to have a left facial droop and some slurring of her speech. Code stroke was called. Computed tomography scan of the brain completed which was a sub- optimal study with motion artifact. Shows no acute intracranial hemorrhage or midline shift. There is moderate diffuse age-related cerebral atrophy and chronic small vessel ischemic change. Some interval progression and findings noted from 2014 CAT scan. Neurology has been consulted. Patient was restarted on her aspirin and Xarelto for DVT prophylaxis and stroke prevention. EKG normal sinus rhythm troponin showing slightly elevated at 0.05 8 repeat troponins are ordered. Patient did have a drop of her hemoglobin down to 7.7 she did have a large estimated blood loss. She is currently on iron. Lactic acid is 2.9. Patient denies any chest pain or shortness of breath. Denies any nausea or vomiting. Denies any bowel movement changes or urinary symptoms. Also per nursing there was concerns about a possible dislocated hip. X-ray completed showing what appears to be an near anatomic. On 01/01/2018 patient is currently resting comfortably in bed. Patient is alert and oriented 3. Patient does still have left facial droop. Patient's hemoglobin also dropping to 6.6. No active signs of bleeding. Patient did receive 1 unit PRBCs. At this time patient denies chest pain or shortness of breath. Patient denies nausea vomiting or urinary symptoms. Objective - Vital Signs Vital signs: Vital Signs Temp 97.1 F L 01/01/18 13:22 Pulse 60 01/01/18 13:22 Resp 16 01/01/18 13:22 BP 148/75 01/01/18 13:22 Pulse Ox 100 01/01/18 13:22 Intake & Output 12/31/17 01/01/18 01/01/18 18:59 06:59 18:59 Intake Total 380 400 0 Balance 380 400 0 Intake: Intake, IV Titration 400 Amount Sodium Ferric Gluconat- 400 Sucrose 125 mg In Sodium Chloride 0.9% 100 ml @ 100 mls/hr IVPB ONCE ONE Rx#:[id number] Oral 380 Blood Product 0 Rc As-3 Unit 0 [id number] Other: Voiding Method Bedside Commode Bedside Commode # Voids 3 1 - Exam Head normocephalic Neck supple Lungs clear to auscultation bilaterally no wheezing or crackles Heart regular rate and rhythm S1-S2, no rub or gallop Abdomen is soft nontender nondistended positive bowel sounds no hepatosplenomegaly Extremities no edema Neuro alert and orientated to 3. Left-sided facial droop. Some slurred speech noted. Hand manager program management equal bilaterally lower extremity strength equal bilaterally - Labs CBC & Chem 7: 01/01/18 07:20 01/01/18 07:20 Labs: Abnormal Lab Results - Last 24 Hours (Table) 12/31/17 12/31/17 12/31/17 Range/Units 14:24 19:06 19:06 RBC (3.80-5.40) m/uL Hgb (11.4-16.0) gm/dL Hct (34.0-46.0) % MCV (80.0-100.0) fL MCHC (31.0-37.0) g/dL Lymphocytes # (1.0-4.8) k/uL Sodium (137-145) mmol/L Chloride (98-107) mmol/L Carbon Dioxide (22-30) mmol/L Plasma Lactic Acid Ankur 0.5 L (0.7-2.0) mmol/L Troponin I 0.048 H* 0.040 H* (0.000-0.034) ng/mL Total Protein (6.3-8.2) g/dL Albumin (3.5-5.0) g/dL HDL Cholesterol (40-60) mg/dL Crossmatch 01/01/18 01/01/18 01/01/18 Range/Units 07:20 07:20 10:26 RBC 2.06 L (3.80-5.40) m/uL Hgb 6.6 L* (11.4-16.0) gm/dL Hct 21.7 L (34.0-46.0) % MCV 105.4 H (80.0-100.0) fL MCHC 30.3 L (31.0-37.0) g/dL Lymphocytes # 0.8 L (1.0-4.8) k/uL Sodium 134 L (137-145) mmol/L Chloride 111 H (98-107) mmol/L Carbon Dioxide 17 L (22-30) mmol/L Plasma Lactic Acid Ankur (0.7-2.0) mmol/L Troponin I (0.000-0.034) ng/mL Total Protein 4.3 L (6.3-8.2) g/dL Albumin 2.0 L (3.5-5.0) g/dL HDL Cholesterol 36 L (40-60) mg/dL Crossmatch See Detail Microbiology - Last 24 Hours (Table) 12/30/17 08:30 Anaerobic Culture - Preliminary Hip - Left 12/30/17 08:30 Gram Stain - Final Hip - Left Wound Culture - Final Assessment and Plan Assessment: 1. Left hip fracture failing internal fixation of the left hip. Status post removal of hardware and femoral head replacement of left. We'll have nursing clarify if Xarelto and aspirin are being restarted for DVT prophylaxis 2. History of CVA 3. History of dementia 4. Hypothyroidism continue Synthroid 5. Essential hypertension: Blood pressure on the lower side after surgery we' ll place parameters around the lisinopril. Continue to monitor 6. Hyperlipidemia continue statin 7. History of anxiety and depression: Continue Xanax 8. Unexpected Postop hypotension improved with IV fluids. Was seen by the critical care service. 9. Acute ischemic stroke noted postoperatively unexpected with Left facial droop and slurred speech. Computed tomography scan of the brain showing no acute intracranial change. Neurology has been consulted. Continue aspirin and Xarelto. Echo completed in October 2017 shows an EF of 55-60%. We'll place patient on telemetry monitoring to monitor any arrhythmias. Check carotid ultrasound. Lipid panel, EEG and serum homocysteine levels have been ordered. 10. Expected acute blood loss anemia secondary to surgery. Hemoglobin dropped to 7.7. Increase ferrous sulfate 325 mg twice a day. Hemoglobin 6.6. Patient will receive 1 unit of PRBCs. Continue to monitor closely 11. Elevated troponin level. Troponins 0.058, 0.048 and 0.040 Cardiology services following. Elevated troponins not indicated of acute coronary event. Related to oxygen supply demand mismatch in the presence of acute blood loss anemia. 2-D echo has been ordered per cardiology. Patient to follow-up outpatient with Dr. Hargrove upon discharge GI prophylaxis omeprazole and DVT prophylaxis Xarelto Per family patient planning to be discharged to [facility] when medically stable I performed an examination of the patient and discussed their management with the Nurse Practitioner. I have reviewed the Nurse Practitioner's notes and agree with the documented findings and plan of care
[2018-01-01] MEDS: ATORVASTATIN 20 MG TAB PO SCH (20:32)
[2018-01-01] MEDS: LATANOPROST 0.005% OPHTH DROPS 2.5 ML BTL BOTH EYES SCH (20:32)
[2018-01-01] MEDS: DONEPEZIL 5 MG TAB PO SCH (20:32)
[2018-01-01] MEDS: SENNOSIDES-DOCUSATE SODIUM 1 EACH TAB PO SCH (20:33)
--- NOTE | 2018-01-01 21:34 | P.PN ---
Subjective Progress Note Date: 01/01/18 Principal diagnosis: Stroke Neurology is following an 82-year-old female for stroke. Patient was admitted to [facility] after having a fall and undergoing left femoral head arthroplasty. Postoperatively, patient began experiencing left facial droop and dysarthria. Stat CT of the brain showed generalized atrophy and chronic small vessel ischemic changes with no acute abnormalities. Carotid Doppler showed no hemodynamically significant stenosis. Patient is currently on Xarelto and aspirin. At the time of the evaluation patient was lying in bed in no acute distress. Patient does have some visible left facial droop and some dysarthria. Patient does not have any dysphasia and denies lateralizing numbness and weakness. Patient does have some anemia on CBC and is currently receiving blood transfusion at time of contact. CMP showed slightly elevated BUN. Patient does have past history of TIA. Patient is alert and oriented 3, family is in the room. Objective - Vital Signs Vital signs: Vital Signs Temp 98.5 F 01/01/18 20:13 Pulse 65 01/01/18 20:13 Resp 18 01/01/18 20:13 BP 138/53 01/01/18 20:13 Pulse Ox 98 01/01/18 20:13 Intake & Output 01/01/18 01/01/18 01/02/18 06:59 18:59 06:59 Intake Total 400 930 Balance 400 930 Intake: Intake, IV Titration 400 600 Amount Sodium Chloride 0.9% 1, 600 000 ml @ 100 mls/hr IV . Q10H [facility] Rx#:[id number] Sodium Ferric Gluconat- 400 Sucrose 125 mg In Sodium Chloride 0.9% 100 ml @ 100 mls/hr IVPB ONCE ONE Rx#:[id number] Blood Product 310 Rc As-3 Unit 310 [id number] Other 20 Rc As-3 Unit 20 [id number] Other: Voiding Method Bedside Commode Bedside Commode # Voids 1 - Exam General appearance: Alert & oriented x3, no apparent distress. Head: Atraumatic, normocephalic, normal inspection Eyes: Well appearance, PERRLA, EOMI. Absent scleral icterus, conjunctival injection, nystagmus, periorbital swelling. Ear, nose and throat: Normal exam, mucous membranes moist Neck: Normal inspection, absent tenderness, lymphadenopathy. Respiratory: No increased work of breathing Cardiovascular: Regular rate, rhythm GI/abdominal: No guarding Extremities: Normal in all extremities with the exception of left lower extremity due to surgical intervention, normal capillary refill, no tenderness, pedal edema joint swelling, calf tenderness. Neurological: cranial nerves:Slight left facial droop, most prominent periorally no seizure activity noted on physical exam no pronator drift and no nystagmus. Left lower extremity: Limited due to recent surgical intervention-hip Right lower extremity: 5/5 Left upper extremity: 5/5 Right upper extremity:5 /5 Sensation: Left lower extremity: normal Right lower extremity: normal Left upper extremity: normal Right upper extremity:normal Psychological: Mood and Affect appropriate for setting - Labs CBC & Chem 7: 01/01/18 07:20 01/01/18 07:20 Labs: Abnormal Lab Results - Last 24 Hours (Table) 01/01/18 01/01/18 01/01/18 Range/Units 07:20 07:20 10:26 RBC 2.06 L (3.80-5.40) m/uL Hgb 6.6 L* (11.4-16.0) gm/dL Hct 21.7 L (34.0-46.0) % MCV 105.4 H (80.0-100.0) fL MCHC 30.3 L (31.0-37.0) g/dL Lymphocytes # 0.8 L (1.0-4.8) k/uL Sodium 134 L (137-145) mmol/L Chloride 111 H (98-107) mmol/L Carbon Dioxide 17 L (22-30) mmol/L Total Protein 4.3 L (6.3-8.2) g/dL Albumin 2.0 L (3.5-5.0) g/dL HDL Cholesterol 36 L (40-60) mg/dL Crossmatch See Detail Microbiology - Last 24 Hours (Table) 12/30/17 08:30 Anaerobic Culture - Preliminary Hip - Left 12/30/17 08:30 Gram Stain - Final Hip - Left Wound Culture - Final Assessment and Plan (1) Status post hip surgery Current Visit: Yes Status: Acute Code(s): Z98.890 - OTHER SPECIFIED POSTPROCEDURAL STATES SNOMED Code(s): 858874031 (2) Cerebrovascular accident Current Visit: No Status: Acute Code(s): I63.9 - CEREBRAL INFARCTION, UNSPECIFIED SNOMED Code(s): 329929492 (3) History of TIA (transient ischemic attack) Current Visit: No Status: Acute Code(s): Z86.73 - PRSNL HX OF TIA (TIA), AND CEREB INFRC W/O RESID DEFICITS SNOMED Code(s): 125667771 Plan: Patient does appear to have experienced a CVA as evidenced by ongoing left facial droop although unable to be confirmed with definitive imaging at this time. Patient is unable to have MRI at this time due to postsurgical status. Patient is currently on blood thinner therapy as part of postsurgical regimen. Continue postsurgical antiplatelet/blood thinner regimen. Continue with ongoing physical therapy/Occupational Therapy for both postsurgical rehabilitation as well as presumptive CVA rehabilitation. Continue 81 mg aspirin, Lipitor 20 mg daily at bedtime. Patients lipid panel was normal with the exception of decreased HDL but medication will be continued for post event risk reduction. Patients serum homocystine level was normal. Patients EEG results are pending. Status: At this time, neurology can follow on an as-needed basis. At discharge, advise patient to follow-up in our office 14 days post discharge from rehabilitation facility. I have discussed the plan of care with the physician prior to implementation and he agrees with the plan as implemented.
[2018-01-02] MEDS: HYDROcodone/APAP 5-325MG 1 EACH TAB PO PRN ×3 (03:51→15:36)
[2018-01-02] MEDS: LEVOTHYROXINE 50 MCG TAB PO SCH (06:11)
[2018-01-02 07:28] LABS: Basophils % (A) 0 %; Eosinophils % (A) 1 %; HCT 26.6 % (34.0-46.0); HGB 8.6 gm/dL (11.4-16.0); Hypochromasia Slight; Lymphocytes # (A) 0.8 k/uL (1.0-4.8); Lymphocytes % (A) 9 %; MCH 32.6 pg (25.0-35.0); MCHC 32.3 g/dL (31.0-37.0); MCV 100.9 fL (80.0-100.0); Macrocytosis Slight; Monocytes # (A) 0.4 k/uL (0-1.0); Monocytes % (A) 5 %; Neutrophils # (A) 7.2 k/uL (1.3-7.7); Neutrophils % (A) 84 %; Platelet Count 202 k/uL (150-450); RBC 2.64 m/uL (3.80-5.40); RDW 14.4 % (11.5-15.5); WBC 8.6 k/uL (3.8-10.6)
[2018-01-02 07:31] VITALS: RESP 16
[2018-01-02 07:46] LABS: ALT 20 U/L (9-52); AST 19 U/L (14-36); Albumin 2.2 g/dL (3.5-5.0); Alkaline Phosphatase 97 U/L (38-126); Anion Gap 7 mmol/L; Blood Urea Nitrogen 14 mg/dL (7-17); Calcium 8.5 mg/dL (8.4-10.2); Carbon Dioxide 18 mmol/L (22-30); Chloride 110 mmol/L (98-107); Glucose 99 mg/dL (74-99); Potassium 4.1 mmol/L (3.5-5.1); Sodium 135 mmol/L (137-145); Total Bilirubin 0.6 mg/dL (0.2-1.3); Total Protein 4.5 g/dL (6.3-8.2)
--- NOTE | 2018-01-02 08:29 | P.PN ---
Subjective Progress Note Date: 01/02/18 Principal diagnosis: Status post left hip hardware removal and femoral head replacement This is an 82 year-old female post left hip hardware removal and femoral head replacement. This is post-op day 3. The patient was evaluated at the bedside today. The patient denies nausea, vomiting, abdominal pain, shortness of breath , and chest pain this morning. She states her pain is controlled at this time. The patient has been up with physical therapy. Her appetite is still poor. Her left-sided facial droop appears to be resolving. Neurology and cardiology are following along with internal medicine. She received 1 unit of packed red blood cells yesterday for hemoglobin of 6.6, the patient's hemoglobin today is 8.6. The patient states that she is feeling better. Objective - Vital Signs Vital signs: Vital Signs Temp 98.4 F 01/02/18 07:29 Pulse 60 01/02/18 07:29 Resp 16 01/02/18 07:56 BP 170/70 01/02/18 07:29 Pulse Ox 97 01/02/18 07:29 Intake & Output 01/01/18 01/02/18 01/02/18 18:59 06:59 18:59 Intake Total 930 800 Balance 930 800 Intake: Intake, IV Titration 600 800 Amount Sodium Chloride 0.9% 1, 600 800 000 ml @ 100 mls/hr IV . Q10H [facility] Rx#:[id number] Blood Product 310 Rc As-3 Unit 310 [id number] Other 20 Rc As-3 Unit 20 [id number] Other: Voiding Method Bedside Commode Diaper Diaper Incontinent Incontinent # Voids 1 # Bowel Movements 1 - Exam The patient does not appear in acute distress. Alert and orientated x3. Dressing is clean dry and intact. Incision appears fine with no erythema or active drainage. Calf is soft and nontender. Good foot and ankle motion without difficulty. Sensation and circulatory status is intact. - Labs CBC & Chem 7: 01/02/18 06:21 01/02/18 06:21 Labs: Abnormal Lab Results - Last 24 Hours (Table) 01/01/18 01/01/18 01/02/18 Range/Units 07:20 10:26 06:21 RBC 2.06 L 2.64 L (3.80-5.40) m/uL Hgb 6.6 L* 8.6 L D (11.4-16.0) gm/dL Hct 21.7 L 26.6 L (34.0-46.0) % MCV 105.4 H 100.9 H (80.0-100.0) fL MCHC 30.3 L (31.0-37.0) g/dL Lymphocytes # 0.8 L 0.8 L (1.0-4.8) k/uL Sodium (137-145) mmol/L Chloride (98-107) mmol/L Carbon Dioxide (22-30) mmol/L Total Protein (6.3-8.2) g/dL Albumin (3.5-5.0) g/dL Crossmatch See Detail 01/02/18 Range/Units 06:21 RBC (3.80-5.40) m/uL Hgb (11.4-16.0) gm/dL Hct (34.0-46.0) % MCV (80.0-100.0) fL MCHC (31.0-37.0) g/dL Lymphocytes # (1.0-4.8) k/uL Sodium 135 L (137-145) mmol/L Chloride 110 H (98-107) mmol/L Carbon Dioxide 18 L (22-30) mmol/L Total Protein 4.5 L (6.3-8.2) g/dL Albumin 2.2 L (3.5-5.0) g/dL Crossmatch Microbiology - Last 24 Hours (Table) 12/30/17 08:30 Anaerobic Culture - Preliminary Hip - Left 12/30/17 08:30 Gram Stain - Final Hip - Left Wound Culture - Final Assessment and Plan (1) Failed hardware Current Visit: Yes Status: Acute Code(s): WWI4602 - SNOMED Code(s): 143329377 (2) Status post hip hemiarthroplasty Current Visit: Yes Status: Acute Code(s): Z96.649 - PRESENCE OF UNSPECIFIED ARTIFICIAL HIP JOINT SNOMED Code(s): 920302740 Plan: 1. Continue pain control 2. Anticoagulation with Xarelto per internal medicine 3. Continue physical therapy and ambulation today. Continue hip precautions with abductor pillow 4. Continue to follow along with internal medicine, neurology, and cardiology. 5. Anticipate discharge to [facility] when cleared medically.
[2018-01-02] MEDS: FLUoxetine HCL 20 MG CAP PO SCH (10:00)
[2018-01-02] MEDS: ASPIRIN 81 MG PO SCH (10:02)
[2018-01-02] MEDS: FERROUS SULFATE 325 MG TAB PO SCH (10:02)
[2018-01-02] MEDS: CHOLECALCIFEROL 1,000 UNIT TAB PO SCH (10:02)
[2018-01-02] MEDS: RIVAROXABAN 10 MG TAB PO SCH (10:02)
[2018-01-02] MEDS: PANTOPRAZOLE 40 MG TABLET PO SCH (10:02)
--- NOTE | 2018-01-02 10:06 | ECHOF ---
Referral Reason:elevated trop, MEASUREMENTS -------- HEIGHT: 154.9 cm WEIGHT: 48.5 kg BP: 109/56 IVSd: 1.2 cm (0.6 - 1.1) LVIDd: 4.7 cm (3.9 - 5.3) LVPWd: 1.1 cm (0.6 - 1.1) IVSs: 1.4 cm LVIDs: 2.8 cm LVPWs: 1.4 cm LAESV Index (A-L): 80.29 ml/m Ao Diam: 2.8 cm (2.0 - 3.7) AV Cusp: 1.6 cm (1.5 - 2.6) LA Diam: 3.3 cm (2.7 - 3.8) MV E Abdoulaye: 1.31 m/s MV DecT: 320 ms MV A Abdoulaye: 1.73 m/s MV E/A Ratio: 0.76 AV maxP.38 mmHg AV meanP.79 mmHg RAP: 5.00 mmHg RVSP: 44.88 mmHg FINDINGS -------- Sinus rhythm. This was a technically good study. The left ventricular size is normal. There is mild concentric left ventricular hypertrophy. Overa ll left ventricular systolic function is normal with, an EF between 55 - 60 %. The right ventricle is normal in size and function. LA is severely dilated >40 ml/m2 The right atrium is normal in size. Aortic valve is trileaflet and is mildly thickened. There is no evidence of aortic regurgitation. There is mild aortic stenosis present. Peak/mean gradient across the Aortic Valve is 21.38mmHg / 1 2.79mmHg. The mitral valve leaflets are moderately thickened. Moderate mitral annular calcification present. Moderate mitral regurgitation is present. The peak and mean MV gradients are 13.39mmHg 4.16mmHg as measured by doppler. Mild mitral stenosis. Moderate tricuspid regurgitation present. There is mild pulmonary hypertension. The right ventric ular systolic pressure, as measured by Doppler, is 44.88mmHg. Trace/mild (physiologic) pulmonic regurgitation. The aortic root size is normal. Normal inferior vena cava with normal inspiratory collapse consistent with estimated right atrial pre ssure of 5 mmHg. There is no pericardial effusion. CONCLUSIONS -------- 1. Sinus rhythm. 2. This was a technically good study. 3. The left ventricular size is normal. 4. There is mild concentric left ventricular hypertrophy. 5. Overall left ventricular systolic function is normal with, an EF between 55 - 60 %. 6. LA is severely dilated >40 ml/m2 7. Aortic valve is trileaflet and is mildly thickened. 8. There is mild aortic stenosis present. 9. Peak/mean gradient across the Aortic Valve is 21.38mmHg / 12.79mmHg. 10. The mitral valve leaflets are moderately thickened. 11. Moderate mitral annular calcification present. 12. Moderate mitral regurgitation is present. 13. The peak and mean MV gradients are 13.39mmHg 4.16mmHg as measured by doppler. 14. Mild mitral stenosis. 15. Moderate tricuspid regurgitation present. 16. There is mild pulmonary hypertension. 17. The right ventricular systolic pressure, as measured by Doppler, is 44.88mmHg. 18. Trace/mild (physiologic) pulmonic regurgitation. 19. The aortic root size is normal. 20. There is no pericardial effusion. CARDIOPULMONARY SUPERVISOR: Jayson Morejon RDCS
[2018-01-02] MEDS: TIMOLOL 0.25% OPHTH DROPS 5 ML BTL BOTH EYES SCH (10:16)
[2018-01-02] MEDS: SODIUM CHLORIDE 0.9% 1,000 ML IV SCH (10:16)
[2018-01-02] MEDS: POTASSIUM CHLORIDE ER 10 MEQ TAB.ER.PRT PO SCH (10:16)
--- NOTE | 2018-01-02 14:32 | P.PN ---
Subjective Progress Note Date: 01/02/18 82-year-old female, patient of Dr. Pimentel. She has a known past medical history hypothyroidism, hypertension, anemia, GERD, CVA, dementia, depression and side. Patient had a fall in October and had fractured her left hip. She underwent open reduction and internal fixation of the left hip with Dr. Pepper. She was placed on Xarelto and aspirin for DVT prophylaxis. Patient still is complaining of pain of the left hip. She was diagnosed with failing the internal fixation for displaced intertrochanteric fracture of the left hip. She underwent removal of hardware and femoral head replacement on the left hip. Patient is currently lying in bed comfortably. No evidence of any distress. She denies any chest pain or shortness of breath. Denies any nausea or vomiting. Does report some mild pain in that left hip. We have been consulted for medical management. 12/31/2017 patient's blood pressure has shown improvement after multiple fluid boluses. This morning around 10:15 nursing staff reported that patient started to have a left facial droop and some slurring of her speech. Code stroke was called. Computed tomography scan of the brain completed which was a sub- optimal study with motion artifact. Shows no acute intracranial hemorrhage or midline shift. There is moderate diffuse age-related cerebral atrophy and chronic small vessel ischemic change. Some interval progression and findings noted from 2014 CAT scan. Neurology has been consulted. Patient was restarted on her aspirin and Xarelto for DVT prophylaxis and stroke prevention. EKG normal sinus rhythm troponin showing slightly elevated at 0.05 8 repeat troponins are ordered. Patient did have a drop of her hemoglobin down to 7.7 she did have a large estimated blood loss. She is currently on iron. Lactic acid is 2.9. Patient denies any chest pain or shortness of breath. Denies any nausea or vomiting. Denies any bowel movement changes or urinary symptoms. Also per nursing there was concerns about a possible dislocated hip. X-ray completed showing what appears to be an near anatomic. On 01/01/2018 patient is currently resting comfortably in bed. Patient is alert and oriented 3. Patient does still have left facial droop. Patient's hemoglobin also dropping to 6.6. No active signs of bleeding. Patient did receive 1 unit PRBCs. At this time patient denies chest pain or shortness of breath. Patient denies nausea vomiting or urinary symptoms. 01/02/2018 patient still has evidence of some left facial droop. She is alert and orientated to 3. She received 1 unit of blood yesterday. Hemoglobin is now 8.6. BP this morning was elevated at 170/70 lisinopril has been restarted. Echo shows an EF of 55-60%. Carotid Doppler shows no significant hemodynamic stenosis. Patient has been cleared by consulting physicians for discharge. She was diagnosed with a stroke during this admission. CO2 is at 18. Recommend checking a BMP in 1 week. No evidence of diarrhea. Objective - Vital Signs Vital signs: Vital Signs Temp 97.6 F 01/02/18 13:42 Pulse 70 01/02/18 13:42 Resp 16 01/02/18 07:56 BP 129/65 01/02/18 13:42 Pulse Ox 100 01/02/18 13:42 Intake & Output 01/01/18 01/02/18 01/02/18 18:59 06:59 18:59 Intake Total 930 800 Balance 930 800 Intake: Intake, IV Titration 600 800 Amount Sodium Chloride 0.9% 1, 600 800 000 ml @ 100 mls/hr IV . Q10H [facility] Rx#:[id number] Blood Product 310 Rc As-3 Unit 310 [id number] Other 20 Rc As-3 Unit 20 [id number] Other: Voiding Method Bedside Commode Diaper Diaper Incontinent Incontinent # Voids 1 # Bowel Movements 1 - Exam Head normocephalic Neck supple Lungs clear to auscultation bilaterally no wheezing or crackles Heart regular rate and rhythm S1-S2, no rub or gallop Abdomen is soft nontender nondistended positive bowel sounds no hepatosplenomegaly Extremities no edema Neuro alert and orientated to 3. Left-sided facial droop. Some slurred speech noted. Hand alumni secretary equal bilaterally lower extremity strength equal bilaterally - Labs CBC & Chem 7: 01/02/18 06:21 01/02/18 06:21 Labs: Abnormal Lab Results - Last 24 Hours (Table) 01/01/18 01/02/18 01/02/18 Range/Units 10:26 06:21 06:21 RBC 2.64 L (3.80-5.40) m/uL Hgb 8.6 L D (11.4-16.0) gm/dL Hct 26.6 L (34.0-46.0) % MCV 100.9 H (80.0-100.0) fL Lymphocytes # 0.8 L (1.0-4.8) k/uL Sodium 135 L (137-145) mmol/L Chloride 110 H (98-107) mmol/L Carbon Dioxide 18 L (22-30) mmol/L Total Protein 4.5 L (6.3-8.2) g/dL Albumin 2.2 L (3.5-5.0) g/dL Crossmatch See Detail Microbiology - Last 24 Hours (Table) 12/30/17 08:30 Anaerobic Culture - Preliminary Hip - Left 12/30/17 08:30 Gram Stain - Final Hip - Left Wound Culture - Final Assessment and Plan Assessment: 1. Left hip fracture failing internal fixation of the left hip. Status post removal of hardware and femoral head replacement of left. Continue Xarelto on aspirin for DVT prophylaxis 2. History of CVA 3. History of dementia 4. Hypothyroidism continue Synthroid 5. Essential hypertension: Blood pressure has improved we will resume the lisinopril 5 mg daily 6. Hyperlipidemia continue statin 7. History of anxiety and depression: Continue Xanax 8. Unexpected Postop hypotension improved with IV fluids. Was seen by the critical care service. 9. Acute ischemic stroke noted postoperatively unexpected with Left facial droop and slurred speech. Computed tomography scan of the brain showing no acute intracranial change. Neurology has been consulted. Continue aspirin and Xarelto. Echo completed in October 2017 shows an EF of 55-60%. Carotid ultrasound showed no significant hemodynamic stenosis. No arrhythmias on telemetry. Continue aspirin, Xarelto and statin 10. Expected acute blood loss anemia secondary to surgery. Patient received IV iron. Continue oral ferrous sulfate. HEENT she has also received 1 unit of blood. Hemoglobin at discharge. 0.6 11. Elevated troponin level. Troponins 0.058, 0.048 and 0.040 Cardiology services following. Elevated troponins not indicated of acute coronary event. Related to oxygen supply demand mismatch in the presence of acute blood loss anemia. Seen by cardiology. They have cleared her for discharge we'll follow- up in the office. Echo on this admission shows an EF of 55-60% with the left atrium severely dilated. Patient is medically stable to be discharged to [facility]. Recommend checking CBC and BMP in 1 week. Continue with ferrous sulfate. Patient is to follow-up with consulting physicians including neurology and cardiology in 1 week. Follow -up follow-up with Dr. Lindquist in 1 week. GI prophylaxis omeprazole and DVT prophylaxis Xarelto I performed an examination of the patient and discussed their management with the physician Dry Placer Machine Operator. I have reviewed the Physician Dry Placer Machine Operator's notes and agree with the documented findings and plan of care
--- NOTE | 2018-01-02 15:00 | P.DS ---
Providers Date of admission: 12/30/17 06:05 Expected date of discharge: 01/02/18 Attending physician: Rajendra Pepper Consults: 12/30/17 10:01 Consult Physician Routine Consulting Provider: Melissa Leiva Consult Reason/Comments: medical management Do you want consulting provider notified?: Yes 12/30/17 15:10 Consult Physician Routine Consulting Provider: Gregorio Pierre Consult Reason/Comments: hypotension, critical care management Do you want consulting provider notified?: Yes 12/31/17 11:41 Consult Physician Routine Consulting Provider: Karie Barrios Consult Reason/Comments: Stroke symptoms Do you want consulting provider notified?: Yes 12/31/17 16:11 Consult Physician Routine Consulting Provider: Cristiane Okeefe Consult Reason/Comments: elevated troponins Do you want consulting provider notified?: Yes Primary care physician: Violetta Pimentel - Discharge Diagnosis(es) (1) Failed hardware Current Visit: Yes Status: Acute (2) Status post hip hemiarthroplasty Current Visit: Yes Status: Acute (3) Cerebrovascular accident Current Visit: No Status: Acute (4) Depression Current Visit: No Status: Acute (5) History of TIA (transient ischemic attack) Current Visit: No Status: Acute (6) Hyperlipidemia Current Visit: No Status: Acute (7) Hypertension Current Visit: No Status: Acute (8) Hypothyroidism Current Visit: No Status: Acute Hospital Course: This is an 82 -year-old female with underwent an ORIF of the left hip with dynamic hip screw placement in October 2017. The patient presented to the orthopedic office for follow up and upon her most recent follow up, it was found that there was a displacement of the screw out of the femoral head and neck. After discussion and consideration the patient elects to proceed with a a hardware removal and left femoral head replacement. The patient was seen preoperatively by Dr. Pimentel and cleared for surgery. The patient was admitted to [facility] on 12/30/2017 for hardware removal and left femoral head replacement. The procedure was performed without complication. She did develop a facial droop on post-op day [address] revealed no acute bleed. She was evaluated by neurology and cardiology during this admission. The patient did receive one unit of packed red blood cells on for a post-operative hemoglobin of 6.6 due to blood loss anemia. Otherwise, the patient is doing well postoperatively. Labs and vital signs are stable the day of discharge. On the day of discharge, the patient's hip incision is healing well. There is minimal erythema. There is no drainage noted at this time. There is minimal soft tissue swelling to the hip and thigh. The patient has full foot and ankle motion without difficulty or pain. Neurovascular status to the left lower extremity is intact. The patient will be discharged to skilled rehab today. Pertinent Studies: Laboratory Tests 01/02/18 06:21 WBC 8.6 RBC 2.64 L Hgb 8.6 L D Hct 26.6 L MCV 100.9 H Patient Condition at Discharge: Fair Plan - Discharge Summary Discharge Rx Participant: Yes New Discharge Prescriptions: New HYDROcodone/APAP 5-325MG [[place] 5] 1 - 2 each PO Q4-6H PRN #60 tab PRN Reason: Pain Sennosides-Docusate Sodium [Senokot-S] 2 tab PO DAILY #30 tablet Continue Levothyroxine Sodium [Synthroid] 50 mcg PO DAILY FLUoxetine HCL [PROzac] 40 mg PO DAILY Cholecalciferol [Vitamin D3] 1,000 unit PO DAILY Aspirin EC [Ecotrin Low Dose] 81 mg PO DAILY Timolol Maleate 1 drop BOTH EYES QAM rOPINIRole HCL [Requip] 3 mg PO HS Atorvastatin [Lipitor] 20 mg PO HS Omeprazole [PriLOSEC] 20 mg PO DAILY Donepezil HCl [Aricept] 5 mg PO HS Rivaroxaban [Xarelto] 10 mg PO DAILY tab Ferrous Sulfate [Iron (65 MG Elemental)] 325 mg PO DAILY Latanoprost Ophth [Xalatan 0.005%] 1 drops BOTH EYES HS Potassium Chloride ER [K-Dur 10] 5 meq PO DAILY Lisinopril [Prinivil] 5 mg PO DAILY ALPRAZolam [Xanax] 0.25 mg PO HS PRN #30 tab PRN Reason: Anxiety Discontinued Diclofenac Sodium [Voltaren Gel] 2 - 4 gram TOPICAL HS Ibuprofen [Motrin Ib] 200 - 400 mg PO Q6H PRN PRN Reason: Pain Acetaminophen [Tylenol Arthritis] 650 mg PO Q6H PRN PRN Reason: Pain No Action HYDROcodone/APAP 5-325MG [[place] 5] 1 - 2 each PO Q4-6H PRN #60 tab PRN Reason: Pain Discharge Medication List Cholecalciferol [Vitamin D3] 1,000 unit PO DAILY 10/02/13 [History] FLUoxetine HCL [PROzac] 40 mg PO DAILY 10/02/13 [History] Levothyroxine Sodium [Synthroid] 50 mcg PO DAILY 10/02/13 [History] Aspirin EC [Ecotrin Low Dose] 81 mg PO DAILY 12/23/15 [History] Atorvastatin [Lipitor] 20 mg PO HS 12/23/15 [History] Timolol Maleate 1 drop BOTH EYES QAM 12/23/15 [History] rOPINIRole HCL [Requip] 3 mg PO HS 12/23/15 [History] Omeprazole [PriLOSEC] 20 mg PO DAILY 01/28/17 [History] Donepezil HCl [Aricept] 5 mg PO HS 10/15/17 [History] HYDROcodone/APAP 5-325MG [[place] 5] 1 - 2 each PO Q4-6H PRN #60 tab 10/24/17 [Rx] Rivaroxaban [Xarelto] 10 mg PO DAILY tab 10/24/17 [Rx] Ferrous Sulfate [Iron (65 MG Elemental)] 325 mg PO DAILY 12/25/17 [History] Latanoprost Ophth [Xalatan 0.005%] 1 drops BOTH EYES HS 12/25/17 [History] Potassium Chloride ER [K-Dur 10] 5 meq PO DAILY 12/25/17 [History] Lisinopril [Prinivil] 5 mg PO DAILY 12/30/17 [History] ALPRAZolam [Xanax] 0.25 mg PO HS PRN #30 tab 01/02/18 [Rx] HYDROcodone/APAP 5-325MG [[place] 5] 1 - 2 each PO Q4-6H PRN #60 tab 01/02/18 [Rx] Sennosides-Docusate Sodium [Senokot-S] 2 tab PO DAILY #30 tablet 01/02/18 [Rx] Follow up Appointment(s)/Referral(s): Mare Singer NPC [Nurse Practitioner] - 4 Weeks Violetta Pimentel MD [Primary Care Provider] - 1 Week Karie Barrios MD [STAFF PHYSICIAN] - 4 Weeks Kory Hargrove MD [STAFF PHYSICIAN] - 1 Week Ambulatory/Diagnostic Orders: Basic Metabolic Panel [LAB.AMB] Time Frame: 3 Days, Location: None Selected Complete Blood Count w/diff [LAB.AMB] Time Frame: 3 Days, Location: None Selected Miscellaneous Radiology Order [RAD.AMB] Time Frame: 3 Weeks, Location: None Selected Activity/Diet/Wound Care/Special Instructions: ok to discharge to [facility]. Dr. Leiva to follow at [facility] Keep incision clean and dry Daily dressing changes until incision is healed Hip precautions Abductor pillow at all times while in bed Xarelto per internal medicine Follow up with Mare Singer NP in 4 weeks with x-rays prior to visit. Call [facility] with any questions or concerns, . Discharge Disposition: TRANSFER TO SNF/ECF
[2018-01-02 15:07] VITALS: BP 124/64; PULSE 59; TEMP 98
--- NOTE | 2018-01-02 17:55 | EEG ---
ELECTROENCEPHALOGRAM REPORT DATE OF SERVICE: 01/02/2018. REASON FOR TESTING: Stroke. DESCRIPTION OF THE PROCEDURE: This EEG was performed using a 21 channel digital electroencephalograph, following international 10-20 system. DESCRIPTION OF THE RECORDING: From the beginning of the tracing, with patient's eyes closed, the background rhythm was mostly consisting of 8 Hz alpha frequency in the posterior occipital leads. No obvious asymmetry is seen. Photic stimulation was performed with no driving response seen. No pathological waves were elicited. Occasional muscle artifacts are seen. Hyperventilation was not performed. More frequent muscle artifacts are noticed later in the tracing. The patient remains awake throughout the tracing. No epileptiform discharges were seen. Her EKG lead showed an irregularly irregular rhythm with a normal rate. INTERPRETATION: This awake EEG can be considered within normal limits except her EKG lead showed an irregularly irregular rhythm with a normal rate. No epileptiform discharges were seen. The absence of epileptiform discharges does not rule out the diagnosis of epilepsy; therefore clinical correlation is recommended. MMALEXANDER / SHANNAN: [id number] /
[2018-01-03] MEDS ORDERED: LISINOPRIL 5 MG TAB PO SCH (09:00)
== END 2018-01-02 17:40 | DRG 469 ==
LOC: 2ORMAIN 06:05 → 3SUR 09:49
PROVIDERS: ADMIT Orthopaedic Surgery; ATTEND Orthopaedic Surgery
PROC: 0SRS01A Replacement of Left Hip Joint, Femoral Surface with Metal Synthetic Substitute, Uncemented, Open Approach (ICD-10-PCS; 2017-12-30)
PROC: 0SPB04Z Removal of Internal Fixation Device from Left Hip Joint, Open Approach (ICD-10-PCS; 2017-12-30)
PROC: 30233N0 Transfusion of Autologous Red Blood Cells into Peripheral Vein, Percutaneous Approach (ICD-10-PCS; 2017-12-30)
PROC: 30230N1 Transfusion of Nonautologous Red Blood Cells into Peripheral Vein, Open Approach (ICD-10-PCS; principal; 2018-01-01)
DX: T84.115A Breakdown (mechanical) of internal fixation device of left femur, initial encounter (principal); I63.9 Cerebral infarction, unspecified; D62 Acute posthemorrhagic anemia; I95.9 Hypotension, unspecified; I35.0 Nonrheumatic aortic (valve) stenosis; F03.90 Unspecified dementia, unspecified severity, without behavioral disturbance, psychotic disturbance, mood disturbance, and anxiety; E11.9 Type 2 diabetes mellitus without complications; R40.2334 Coma scale, best motor response, abnormal flexion, 24 hours or more after hospital admission; M41.9 Scoliosis, unspecified; R40.2144 Coma scale, eyes open, spontaneous, 24 hours or more after hospital admission; R40.2254 Coma scale, best verbal response, oriented, 24 hours or more after hospital admission; R29.703 NIHSS score 3; G89.29 Other chronic pain; M54.5 Low back pain; R47.1 Dysarthria and anarthria; R29.810 Facial weakness; E03.9 Hypothyroidism, unspecified; I10 Essential (primary) hypertension; K21.9 Gastro-esophageal reflux disease without esophagitis; M17.11 Unilateral primary osteoarthritis, right knee; M46.96 Unspecified inflammatory spondylopathy, lumbar region; F32.9 Major depressive disorder, single episode, unspecified; F41.9 Anxiety disorder, unspecified; E78.5 Hyperlipidemia, unspecified; H40.9 Unspecified glaucoma; H91.90 Unspecified hearing loss, unspecified ear; R77.9 Abnormality of plasma protein, unspecified; R05 Cough; R11.0 Nausea; Z79.01 Long term (current) use of anticoagulants; Z79.02 Long term (current) use of antithrombotics/antiplatelets; Z79.82 Long term (current) use of aspirin; Z79.890 Hormone replacement therapy; Z79.899 Other long term (current) drug therapy; Z90.710 Acquired absence of both cervix and uterus; Z85.828 Personal history of other malignant neoplasm of skin; Z86.73 Personal history of transient ischemic attack (TIA), and cerebral infarction without residual deficits; Z91.81 History of falling; Z98.42 Cataract extraction status, left eye; Z98.41 Cataract extraction status, right eye; Z82.49 Family history of ischemic heart disease and other diseases of the circulatory system; Z83.2 Family history of diseases of the blood and blood-forming organs and certain disorders involving the immune mechanism; Z82.3 Family history of stroke; Y83.4 Other reconstructive surgery as the cause of abnormal reaction of the patient, or of later complication, without mention of misadventure at the time of the procedure
CPT/HCPCS: 70450; 71045; 73501; 80051; 80053; 80061; 83090; 83605; 84484; 85025; 85027; 86850; 86891; 86900; 86901; 86920; 87070; 87075; 87205; 88305; 88311; 93005; 93306; 93880; 95819

== ENCOUNTER 2021-02-14 05:40 | Emergency (ER) | payer MEDICARE, BC ==
[2021-02-14] MEDS ORDERED: ONDANSETRON 4 MG/2 ML VIAL IVP STA (06:07)
[2021-02-14] MEDS ORDERED: SODIUM CHLORIDE 0.9% 1,000 ML IV STA (06:07)
[2021-02-14] MEDS ORDERED: PANTOPRAZOLE 40 MG/10 ML VIAL IVP STA (06:18)
[2021-02-14 06:46] LABS: Basophils % (A) 0 %; Eosinophils % (A) 0 %; HCT 36.7 % (34.0-46.0); HGB 12.3 gm/dL (11.4-16.0); Lymphocytes # (A) 0.8 k/uL (1.0-4.8); Lymphocytes % (A) 8 %; MCH 32.8 pg (25.0-35.0); MCHC 33.6 g/dL (31.0-37.0); MCV 97.6 fL (80.0-100.0); Mean Platelet Volume 7.8; Monocytes # (A) 0.4 k/uL (0-1.0); Monocytes % (A) 4 %; Neutrophils # (A) 9.9 k/uL (1.3-7.7); Neutrophils % (A) 88 %; Platelet Count 264 k/uL (150-450); RBC 3.76 m/uL (3.80-5.40); RDW 13.3 % (11.5-15.5); WBC 11.3 k/uL (3.8-10.6)
[2021-02-14 07:03] LABS: INR 0.9 (<1.2); Prothrombin Time 9.9 sec (9.0-12.0)
[2021-02-14 07:06] LABS: Albumin 3.5 g/dL (3.5-5.0); Calcium 9.5 mg/dL (8.4-10.2); Potassium 3.9 mmol/L (3.5-5.1); Total Bilirubin 0.3 mg/dL (0.2-1.3); Total Protein 6.3 g/dL (6.3-8.2)
[2021-02-14 07:09] LABS: Partial Thromboplastin Time 20.2 sec (22.0-30.0)
[2021-02-14] MEDS ORDERED: ONDANSETRON 4 MG ODT STARTER PACK 2 TAB BTL PO STA (11:10)
--- NOTE | 2021-02-14 11:11 | ED ---
Nausea/Vomiting/Diarrhea HPI - General Chief complaint: Nausea/Vomiting/Diarrhea Stated complaint: Nausea, vomiting Time Seen by Provider: 02/14/21 06:00 Source: EMS, RN notes reviewed Mode of arrival: EMS Limitations: no limitations - History of Present Illness Initial comments: Patient is an 85-year-old female that was sent from [facility] for nausea vomiting with some red streaking in her vomit. Patient was otherwise a pleasant demented female in no acute distress or pain. She denied any acute nausea or vomiting while in the emergency Department. Patient denied any other symptoms or complaints. Patient was a poor historian giving medical condition. She denied chest pain shortness of breath headache diarrhea constipation fever fatigue chills. - Related Data Home Medications Medication Instructions Recorded Confirmed Cholecalciferol [Vitamin D3 (25 25 mcg PO DAILY@79910/02/13 02/14/21 Mcg = 1000 Iu)] Levothyroxine Sodium [Synthroid] 50 mcg PO DAILY@79910/02/13 02/14/21 Aspirin EC [Ecotrin Low Dose] 81 mg PO DAILY@0800 12/23/15 02/14/21 rOPINIRole HCL [Requip] 3 mg PO HS 12/23/15 02/14/21 timoloL maleate [Timolol Maleate] 1 drop BOTH EYES DAILY@0800 12/23/15 02/14/21 Donepezil HCl [Aricept] 5 mg PO HS 10/15/17 02/14/21 Ferrous Sulfate [Iron (65 MG 325 mg PO DAILY@0800 12/25/17 02/14/21 Elemental)] Latanoprost Ophth [Xalatan 0.005%] 1 drop BOTH EYES HS 12/25/17 02/14/21 Potassium Chloride ER [K-Dur 10] 10 meq PO DAILY@1700 12/25/17 02/14/21 lisinopriL [Prinivil] 5 mg PO DAILY@0800 12/30/17 02/14/21 Acetaminophen [Tylenol 8 Hour] 650 mg PO Q4H PRN 02/14/21 02/14/21 HYDROcodone/APAP 7.5-325MG [[place] 1 tab PO Q4-6H PRN 02/14/21 02/14/21 7.5-325] Lactose-Reduced Food [Ensure Plus] 120 ml PO TID@0800,1200,1700 02/14/21 02/14/21 Loperamide HCl [Imodium A-D] 2 - 4 mg PO QID PRN 02/14/21 02/14/21 Menthol [Biofreeze] 1 applic TOPICAL BID PRN 02/14/21 02/14/21 Mirtazapine [Remeron Soluspan] 30 mg PO HS 02/14/21 02/14/21 Rivaroxaban [Xarelto] 10 mg PO DAILY@0800 02/14/21 02/14/21 Rosuvastatin Calcium [Crestor] 5 mg PO HS 02/14/21 02/14/21 Sennosides-Docusate Sodium 2 tab PO DAILY@0800 02/14/21 02/14/21 [Senokot-S] guaiFENesin [guaiFENesin Oral 100 mg PO Q4H PRN 02/14/21 02/14/21 Solution] Allergies Allergy/AdvReac Type Severity Reaction Status Date / Time No Known Allergies Allergy Verified 02/14/21 07:48 Review of Systems ROS Statement: Those systems with pertinent positive or pertinent negative responses have been documented in the HPI. ROS Other: All systems not noted in ROS Statement are negative. Past Medical History Past Medical History: Cancer, CVA/TIA, Diabetes Mellitus, Eye Disorder, GERD/Reflux, Hyperlipidemia, Hypertension, Osteoarthritis (OA), Thyroid Disorder Additional Past Medical History / Comment(s): HX: DM, NO RX SINCE WGT LOSS. SCOLIOSIS, BACK PAIN. SKIN CA, MULT. CVA, SL generalized weakness residual, TIA 04/2013 (pt/francisco j think she has a couple). Irregular heart beat OCC, Bradycardia at times, MINOR HEART MURMUR. GLAUCOMA. LT HIP FX 10/2017, HAS IRRITATING HARDWARE NOW. History of Any Multi-Drug Resistant Organisms: None Reported Past Surgical History: Hysterectomy Additional Past Surgical History / Comment(s): Colonoscopies w/ polypectomy- benign. MAIRA CATARACTS. Epidural INJ Lumbar Spine, LAST 10/07/17. 10/22/17 ORIF LT HIP. Past Anesthesia/Blood Transfusion Reactions: No Reported Reaction Past Psychological History: Anxiety, Depression Smoking Status: Never smoker Past Alcohol Use History: None Reported Past Drug Use History: None Reported - Past Family History Son(s) Family Medical History: Deep Vein Thrombosis (DVT) Father Family Medical History: Coronary Artery Disease (CAD), Myocardial Infarction (OK) Additional Family Medical History / Comment(s): Father of [place]-pt unsure what age,. Mother Family Medical History: CVA/TIA General Exam Limitations: altered mental status (Dementia) General appearance: alert, in no apparent distress Head exam: Present: atraumatic, normocephalic, normal inspection Eye exam: Present: normal appearance, PERRL, EOMI. Absent: scleral icterus, conjunctival injection, periorbital swelling ENT exam: Present: normal exam, mucous membranes moist Neck exam: Present: normal inspection Respiratory exam: Present: normal lung sounds bilaterally. Absent: respiratory distress, wheezes, rales, rhonchi, stridor Cardiovascular Exam: Present: regular rate, normal rhythm, normal heart sounds. Absent: systolic murmur, diastolic murmur, rubs, gallop, clicks GI/Abdominal exam: Present: soft, normal bowel sounds. Absent: distended, tenderness, guarding, rebound, rigid Extremities exam: Present: normal inspection, full ROM, normal capillary refill. Absent: tenderness, pedal edema, joint swelling, calf tenderness Neurological exam: Present: alert, oriented X3 Psychiatric exam: Present: normal affect, normal mood Skin exam: Present: warm, dry, intact, normal color. Absent: rash Course Vital Signs 02/14/21 02/14/21 02/14/21 05:47 07:03 09:04 Temperature 98.2 F Pulse Rate 81 75 72 Respiratory 18 18 18 Rate Blood Pressure 124/72 113/60 123/62 O2 Sat by Pulse 97 96 97 Oximetry Medical Decision Making - Medical Decision Making 85-year-old female sent from [facility] with nausea vomiting. Labs, 1 L normal saline, 4 mg of Zofran, 4 g of Protonix ordered. EKG ordered. Within normal limits. Labs: Mild leukocytosis at 11.3, CMP unremarkable, troponin 0.055, repeat troponin 0.056. Patient does have a history of elevated troponin current values are unremarkable from baseline.. Patient's vital signs are stable and can discharge back to facility. Case discussed with Dr. Nielsen, patient discharge home. - Lab Data Result diagrams: 02/14/21 06:25 02/14/21 06:25 Lab Results 02/14/21 02/14/21 02/14/21 Range/Units 06:25 06:25 06:25 WBC 11.3 H (3.8-10.6) k/uL RBC 3.76 L (3.80-5.40) m/uL Hgb 12.3 (11.4-16.0) gm/dL Hct 36.7 (34.0-46.0) % MCV 97.6 (80.0-100.0) fL MCH 32.8 (25.0-35.0) pg MCHC 33.6 (31.0-37.0) g/dL RDW 13.3 (11.5-15.5) % Plt Count 264 (150-450) k/uL MPV 7.8 Neutrophils % 88 % Lymphocytes % 8 % Monocytes % 4 % Eosinophils % 0 % Basophils % 0 % Neutrophils # 9.9 H (1.3-7.7) k/uL Lymphocytes # 0.8 L (1.0-4.8) k/uL Monocytes # 0.4 (0-1.0) k/uL Eosinophils # 0.0 (0-0.7) k/uL Basophils # 0.0 (0-0.2) k/uL PT (9.0-12.0) sec INR (<1.2) APTT (22.0-30.0) sec Sodium 140 (137-145) mmol/L Potassium 3.9 (3.5-5.1) mmol/L Chloride 104 (98-107) mmol/L Carbon Dioxide 29 (22-30) mmol/L Anion Gap 7 mmol/L BUN 27 H (7-17) mg/dL Creatinine 0.73 (0.52-1.04) mg/dL Est GFR (CKD-EPI)AfAm 87 (>60 ml/min/1.73 sqM) Est GFR (CKD-EPI)NonAf 76 (>60 ml/min/1.73 sqM) Glucose 170 H (74-99) mg/dL Calcium 9.5 (8.4-10.2) mg/dL Total Bilirubin 0.3 (0.2-1.3) mg/dL AST 22 (14-36) U/L ALT 12 (4-34) U/L Alkaline Phosphatase 58 (38-126) U/L Troponin I 0.055 H* (0.000-0.034) ng/mL Total Protein 6.3 (6.3-8.2) g/dL Albumin 3.5 (3.5-5.0) g/dL Blood Type Blood Type Recheck Bld Type Recheck Status Antibody Screen Spec Expiration Date 02/14/21 02/14/21 02/14/21 Range/Units 06:25 06:30 10:00 WBC (3.8-10.6) k/uL RBC (3.80-5.40) m/uL Hgb (11.4-16.0) gm/dL Hct (34.0-46.0) % MCV (80.0-100.0) fL MCH (25.0-35.0) pg MCHC (31.0-37.0) g/dL RDW (11.5-15.5) % Plt Count (150-450) k/uL MPV Neutrophils % % Lymphocytes % % Monocytes % % Eosinophils % % Basophils % % Neutrophils # (1.3-7.7) k/uL Lymphocytes # (1.0-4.8) k/uL Monocytes # (0-1.0) k/uL Eosinophils # (0-0.7) k/uL Basophils # (0-0.2) k/uL PT 9.9 (9.0-12.0) sec INR 0.9 (<1.2) APTT 20.2 L (22.0-30.0) sec Sodium (137-145) mmol/L Potassium (3.5-5.1) mmol/L Chloride (98-107) mmol/L Carbon Dioxide (22-30) mmol/L Anion Gap mmol/L BUN (7-17) mg/dL Creatinine (0.52-1.04) mg/dL Est GFR (CKD-EPI)AfAm (>60 ml/min/1.73 sqM) Est GFR (CKD-EPI)NonAf (>60 ml/min/1.73 sqM) Glucose (74-99) mg/dL Calcium (8.4-10.2) mg/dL Total Bilirubin (0.2-1.3) mg/dL AST (14-36) U/L ALT (4-34) U/L Alkaline Phosphatase (38-126) U/L Troponin I 0.056 H* (0.000-0.034) ng/mL Total Protein (6.3-8.2) g/dL Albumin (3.5-5.0) g/dL Blood Type A Positive Blood Type Recheck A Pos Bld Type Recheck Status No Antibody Screen NEGATIVE Spec Expiration Date 02/17/20212329 - EKG Data -: EKG Interpreted by Me EKG shows normal: sinus rhythm Rate: normal EKG Comments: Ventricular rate 73 bpm, GA interval 162 ms, QRS duration 122 ms, QTC 471 ms, PRT axes 77/-51/78. Normal sinus rhythm, left anterior fascicular block, left ventricular hypertrophy with QRS widening, cannot rule out septal infarct age undetermined, abnormal ECG. Disposition Clinical Impression: Dehydration, Nausea & vomiting Disposition: HOME SELF-CARE Condition: Stable Instructions (If sedation given, give patient instructions): Acute Nausea and Vomiting (ED) Additional Instructions: Please return to the Emergency Department if symptoms worsen or any other concerns. Follow-up with primary care 1-2 days. Zofran starter pack given. Increase fluids. Is patient prescribed a controlled substance at d/c from ED?: No Referrals: Melissa Leiva MD [Primary Care Provider] - 1-2 days Time of Disposition: 11:11
[2021-02-14 11:46] VITALS: BP 143/71; PULSE 70; RESP 17; TEMP 98.6
== END 2021-02-14 12:00 | disposition home or self-care (01) ==
LOC: EC 05:40
DX: E86.0 Dehydration (principal); R11.2 Nausea with vomiting, unspecified; E11.9 Type 2 diabetes mellitus without complications; E07.9 Disorder of thyroid, unspecified; M19.90 Unspecified osteoarthritis, unspecified site; I10 Essential (primary) hypertension; Z79.890 Hormone replacement therapy; Z79.899 Other long term (current) drug therapy; Z79.82 Long term (current) use of aspirin; Z79.02 Long term (current) use of antithrombotics/antiplatelets
CPT/HCPCS: 36415; 93005; 86900; 86901; 80053; 84484; 85025; 85610; 85730; 86850; 99284; 96374; 96375; 96361; J2405; S0119; C9113

== ENCOUNTER 2021-03-08 06:21 | Inpatient (IN) | payer MEDICARE, BC ==
[2021-03-08] MEDS ORDERED: PANTOPRAZOLE 40 MG/10 ML VIAL IVP STA (06:43)
[2021-03-08] MEDS ORDERED: SODIUM CHLORIDE 0.9% 500 ML 500 ML IV STA (06:43)
[2021-03-08] MEDS ORDERED: ONDANSETRON 4 MG/2 ML VIAL IVP STA (06:43)
--- NOTE | 2021-03-08 06:56 | ED ---
GI Bleed HPI - General Chief complaint: GI Bleed Stated complaint: GI Bleed Time Seen by Provider: 03/08/21 06:27 Source: patient, EMS, RN notes reviewed Mode of arrival: EMS Limitations: altered mental status (Dementia) - History of Present Illness Initial comments: This a 85-year-old female presents emergency from via EMS from [place] chief complaint of emesis. Patient started having bouts of emesis throughout the night staff stated that it was dark in color brownish to dark red in appearance. Patient has no complaints of pain denies any chest pain shortness of breath fevers chills no stooping diarrhea. Patient is at her baseline which she has baseline confusion secondary to dementia. Patient medication list shows evidence of Eliquis patient unsure why. She denies any known black stools, hematochezia. - Related Data Home Medications Medication Instructions Recorded Confirmed Cholecalciferol [Vitamin D3 (25 25 mcg PO DAILY@0800 10/02/14 03/08/21 Mcg = 1000 Iu)] Aspirin EC [Ecotrin Low Dose] 81 mg PO DAILY@0800 12/23/15 03/08/21 rOPINIRole HCL [Requip] 3 mg PO HS 12/23/15 03/08/21 timoloL maleate [Timolol Maleate] 1 drop BOTH EYES DAILY@0800 12/23/15 03/08/21 Donepezil HCl [Aricept] 5 mg PO HS 10/15/17 03/08/21 Ferrous Sulfate [Iron (65 MG 325 mg PO DAILY@0800 12/25/17 03/08/21 Elemental)] Latanoprost Ophth [Xalatan 0.005%] 1 drop BOTH EYES HS 12/25/17 03/08/21 Potassium Chloride ER [K-Dur 10] 10 meq PO DAILY@1700 12/25/17 03/08/21 lisinopriL [Prinivil] 5 mg PO DAILY@0800 12/30/17 03/08/21 HYDROcodone/APAP 7.5-325MG [[place] 1 tab PO Q4H PRN 02/14/21 03/08/21 7.5-325] Loperamide HCl [Imodium A-D] 2 - 4 mg PO QID PRN 02/14/21 03/08/21 Menthol [Biofreeze] 1 applic TOPICAL BID PRN 02/14/21 03/08/21 Rivaroxaban [Xarelto] 10 mg PO DAILY@0800 02/14/21 03/08/21 Rosuvastatin Calcium [Crestor] 5 mg PO HS 02/14/21 03/08/21 guaiFENesin [guaiFENesin Oral 100 mg PO Q4H PRN 02/14/21 03/08/21 Solution] Acetaminophen Tab [Tylenol] 650 mg PO Q4H PRN 03/08/21 03/08/21 Ensure Clear 237 ml PO TID@0800,1200,1700 03/08/21 03/08/21 Levothyroxine Sodium [Synthroid] 25 mcg PO DAILY@0800 03/08/21 03/08/21 Magnesium Hydroxide [Milk of 7,200 mg PO Q48H PRN 03/08/21 03/08/21 Magnesia Concentrate] Mirtazapine [Remeron] 30 mg PO HS 03/08/21 03/08/21 Na Phos,M-B/Na Phos,Di-Ba [Fleet 133 ml RECTAL DAILY PRN 03/08/21 03/08/21 Adult] Sennosides [Senna] 17.2 mg PO HS 03/08/21 03/08/21 bisacodyL [Dulcolax] 10 mg RECTAL DAILY PRN 03/08/21 03/08/21 Allergies Allergy/AdvReac Type Severity Reaction Status Date / Time No Known Allergies Allergy Verified 03/08/21 07:29 Review of Systems ROS Statement: Those systems with pertinent positive or pertinent negative responses have been documented in the HPI. ROS Other: All systems not noted in ROS Statement are negative. Past Medical History Past Medical History: Cancer, CVA/TIA, Diabetes Mellitus, Eye Disorder, GERD/Reflux, Hyperlipidemia, Hypertension, Osteoarthritis (OA), Thyroid Disorder Additional Past Medical History / Comment(s): HX: DM, NO RX SINCE WGT LOSS. SCOLIOSIS, BACK PAIN. SKIN CA, MULT. CVA, SL generalized weakness residual, TIA 04/2013 (pt/francisco j think she has a couple). Irregular heart beat OCC, B radycardia at times, MINOR HEART MURMUR. GLAUCOMA. LT HIP FX 10/2017, HAS IRRITATING HARDWARE NOW. History of Any Multi-Drug Resistant Organisms: None Reported Past Surgical History: Hysterectomy Additional Past Surgical History / Comment(s): Colonoscopies w/ polypectomy- benign. MAIRA CATARACTS. Epidural INJ Lumbar Spine, LAST 10/07/17. 10/22/17 ORIF LT HIP. Past Anesthesia/Blood Transfusion Reactions: No Reported Reaction Past Psychological History: Anxiety, Depression Smoking Status: Never smoker Past Alcohol Use History: None Reported Past Drug Use History: None Reported - Past Family History Son(s) Family Medical History: Deep Vein Thrombosis (DVT) Father Family Medical History: Coronary Artery Disease (CAD), Myocardial Infarction ([place]) Additional Family Medical History / Comment(s): Father of [place]-pt unsure what age,. Mother Family Medical History: CVA/TIA General Exam Limitations: altered mental status General appearance: alert, in no apparent distress Head exam: Present: atraumatic, normocephalic, normal inspection ENT exam: Present: normal exam, normal oropharynx, mucous membranes moist Neck exam: Present: normal inspection. Absent: tenderness, meningismus, lymphadenopathy Respiratory exam: Present: normal lung sounds bilaterally. Absent: respiratory distress, wheezes, rales, rhonchi, stridor Cardiovascular Exam: Present: regular rate, normal rhythm, normal heart sounds. Absent: systolic murmur, diastolic murmur, rubs, gallop, clicks GI/Abdominal exam: Present: soft, normal bowel sounds. Absent: distended, tenderness, guarding, rebound, rigid Neurological exam: Present: alert. Absent: oriented X3 Skin exam: Present: warm, dry, intact, normal color. Absent: rash Course Vital Signs 03/08/21 06:24 Temperature 97.8 F Pulse Rate 91 Respiratory 18 Rate Blood Pressure 175/78 O2 Sat by Pulse 94 L Oximetry Medical Decision Making - Medical Decision Making Patient gastric occult positive. Patient was given antiemetics no recurrent e pisodes emesis. Patient is on Eliquis, Eliquis will be held, Protonix was given patient's hemoglobin is stable. Patient did have mild hypokalemia medications were ordered for replacement a she'll be admitted for further evaluation. - Lab Data Result diagrams: 03/08/21 06:46 03/08/21 06:46 Lab Results 03/08/21 03/08/21 03/08/21 Range/Units 06:46 06:46 06:46 WBC 19.9 H (3.8-10.6) k/uL RBC 3.89 (3.80-5.40) m/uL Hgb 12.6 (11.4-16.0) gm/dL Hct 37.8 (34.0-46.0) % MCV 97.2 (80.0-100.0) fL MCH 32.4 (25.0-35.0) pg MCHC 33.3 (31.0-37.0) g/dL RDW 13.1 (11.5-15.5) % Plt Count 339 (150-450) k/uL MPV 7.8 Neutrophils % 93 % Lymphocytes % 4 % Monocytes % 2 % Eosinophils % 0 % Basophils % 0 % Neutrophils # 18.5 H (1.3-7.7) k/uL Lymphocytes # 0.9 L (1.0-4.8) k/uL Monocytes # 0.4 (0-1.0) k/uL Eosinophils # 0.0 (0-0.7) k/uL Basophils # 0.0 (0-0.2) k/uL PT 9.8 (9.0-12.0) sec INR 0.9 (<1.2) APTT 18.6 L (22.0-30.0) sec Sodium 143 (137-145) mmol/L Potassium 3.2 L (3.5-5.1) mmol/L Chloride 101 (98-107) mmol/L Carbon Dioxide 31 H (22-30) mmol/L Anion Gap 11 mmol/L BUN 17 (7-17) mg/dL Creatinine 0.70 (0.52-1.04) mg/dL Est GFR (CKD-EPI)AfAm >90 (>60 ml/min/1.73 sqM) Est GFR (CKD-EPI)NonAf 79 (>60 ml/min/1.73 sqM) Glucose 217 H (74-99) mg/dL Plasma Lactic Acid Ankur (0.7-2.0) mmol/L Calcium 9.8 (8.4-10.2) mg/dL Magnesium 1.8 (1.6-2.3) mg/dL Total Bilirubin 0.4 (0.2-1.3) mg/dL AST 25 (14-36) U/L ALT 14 (4-34) U/L Alkaline Phosphatase 81 (38-126) U/L Troponin I (0.000-0.034) ng/mL Total Protein 6.6 (6.3-8.2) g/dL Albumin 3.9 (3.5-5.0) g/dL Lipase 103 (23-300) U/L Gastric Occult Blood (Negative) 03/08/21 03/08/21 03/08/21 Range/Units 06:46 06:46 06:46 WBC (3.8-10.6) k/uL RBC (3.80-5.40) m/uL Hgb (11.4-16.0) gm/dL Hct (34.0-46.0) % MCV (80.0-100.0) fL MCH (25.0-35.0) pg MCHC (31.0-37.0) g/dL RDW (11.5-15.5) % Plt Count (150-450) k/uL MPV Neutrophils % % Lymphocytes % % Monocytes % % Eosinophils % % Basophils % % Neutrophils # (1.3-7.7) k/uL Lymphocytes # (1.0-4.8) k/uL Monocytes # (0-1.0) k/uL Eosinophils # (0-0.7) k/uL Basophils # (0-0.2) k/uL PT (9.0-12.0) sec INR (<1.2) APTT (22.0-30.0) sec Sodium (137-145) mmol/L Potassium (3.5-5.1) mmol/L Chloride (98-107) mmol/L Carbon Dioxide (22-30) mmol/L Anion Gap mmol/L BUN (7-17) mg/dL Creatinine (0.52-1.04) mg/dL Est GFR (CKD-EPI)AfAm (>60 ml/min/1.73 sqM) Est GFR (CKD-EPI)NonAf (>60 ml/min/1.73 sqM) Glucose (74-99) mg/dL Plasma Lactic Acid Ankur 2.6 H* (0.7-2.0) mmol/L Calcium (8.4-10.2) mg/dL Magnesium (1.6-2.3) mg/dL Total Bilirubin (0.2-1.3) mg/dL AST (14-36) U/L ALT (4-34) U/L Alkaline Phosphatase (38-126) U/L Troponin I 0.028 (0.000-0.034) ng/mL Total Protein (6.3-8.2) g/dL Albumin (3.5-5.0) g/dL Lipase (23-300) U/L Gastric Occult Blood Positive (Negative) Disposition Clinical Impression: Nausea & vomiting, Upper GI bleed, Hypokalemia Disposition: ADMITTED IP TO THIS HOSP Condition: Fair Referrals: Melissa Leiva MD [Primary Care Provider] - 1-2 days
[2021-03-08 07:02] LABS: Basophils % (A) 0 %; Eosinophils % (A) 0 %; HCT 37.8 % (34.0-46.0); HGB 12.6 gm/dL (11.4-16.0); Lymphocytes # (A) 0.9 k/uL (1.0-4.8); Lymphocytes % (A) 4 %; MCH 32.4 pg (25.0-35.0); MCHC 33.3 g/dL (31.0-37.0); MCV 97.2 fL (80.0-100.0); Mean Platelet Volume 7.8; Monocytes # (A) 0.4 k/uL (0-1.0); Monocytes % (A) 2 %; Neutrophils # (A) 18.5 k/uL (1.3-7.7); Neutrophils % (A) 93 %; Platelet Count 339 k/uL (150-450); RBC 3.89 m/uL (3.80-5.40); RDW 13.1 % (11.5-15.5); WBC 19.9 k/uL (3.8-10.6)
[2021-03-08 07:07] LABS: INR 0.9 (<1.2); Prothrombin Time 9.8 sec (9.0-12.0)
[2021-03-08 07:26] LABS: African American GFR (CKD) >90 (>60 ml/min/1.73 sqM); Albumin 3.9 g/dL (3.5-5.0); Carbon Dioxide 31 mmol/L (22-30); Non-African American GFR(CKD) 79 (>60 ml/min/1.73 sqM); Total Protein 6.6 g/dL (6.3-8.2)
[2021-03-08 07:28] LABS: ALT 14 U/L (4-34); AST 25 U/L (14-36); Alkaline Phosphatase 81 U/L (38-126); Anion Gap 11 mmol/L; Blood Urea Nitrogen 17 mg/dL (7-17); Calcium 9.8 mg/dL (8.4-10.2); Chloride 101 mmol/L (98-107); Glucose 217 mg/dL (74-99); Lipase 103 U/L (23-300); Magnesium 1.8 mg/dL (1.6-2.3); Potassium 3.2 mmol/L (3.5-5.1); Sodium 143 mmol/L (137-145); Total Bilirubin 0.4 mg/dL (0.2-1.3)
[2021-03-08 07:35] LABS: Partial Thromboplastin Time 18.6 sec (22.0-30.0)
[2021-03-08] MEDS ORDERED: POTASSIUM CHLORIDE 20 MEQ in WATER FOR INJECTION 1 100ML.BAG IVPB STA (08:05)
[2021-03-08] MEDS ORDERED: NALOXONE 0.4 MG/ML 1 ML VIAL IV PRN (08:08)
[2021-03-08] MEDS ORDERED: ACETAMINOPHEN TAB 325 MG TAB PO PRN ×2 (08:08→11:11)
[2021-03-08] MEDS ORDERED: ONDANSETRON 4 MG/2 ML VIAL IVP PRN (08:08)
[2021-03-08] MEDS ORDERED: METOCLOPRAMIDE 5 MG/ML 2 ML VIAL IVP STA (08:28)
[2021-03-08] MEDS ORDERED: diphenhydrAMINE 50 MG/ML 1 ML VIAL IVP STA (08:28)
[2021-03-08] MEDS: SODIUM CHLORIDE 0.9% 1,000 ML IV SCH ×2 (08:39→23:18)
[2021-03-08] MEDS: PANTOPRAZOLE 40 MG/10 ML VIAL IV SCH ×2 (10:06→20:03)
[2021-03-08] MEDS ORDERED: ENSURE CLEAR PO SCH (12:00)
--- NOTE | 2021-03-08 12:35 | P.HPIM ---
History of Present Illness 84-year-old female came in with the complaints of emesis coffee-ground to brownish color. Patient is on anticoagulation with Xarelto for atrial fibrillation and stroke in the past. This is being held and patient is being admitted for possible upper GI bleed and patient was started on Protonix. Patient apparently had similar episode in the past. Patient later is found to have fever of 100.4 Covid 19 was negative, patient clinically doesn't have any UTI or pneumonia will obtain a UA, chest x-ray 2 views Eliud nausea vomiting abdominal discomfort and also obtain a CT of the abdomen to find it very any source of infection patient will not be started on any antibiotic at this time blood cultures will be obtained. Patient does have leukocytosis which can be reactive from nausea vomiting. REVIEW OF SYSTEMS: CONSTITUTIONAL: no malaise, no fatigue. HEENT: No recent visual problems or hearing problems. Denied any sore throat. CARDIOVASCULAR: No chest pain, orthopnea, PND, no palpitations, no syncope. PULMONARY: No shortness of breath, no cough, no hemoptysis. GASTROINTESTINAL: No diarrhea. NEUROLOGICAL: No headaches, no weakness, no numbness. HEMATOLOGICAL: Denies any bleeding or petechiae. GENITOURINARY: Denies any burning micturition, frequency, or urgency. MUSCULOSKELETAL/RHEUMATOLOGICAL: Denies any joint pain, swelling, or any muscle pain. ENDOCRINE: Denies any polyuria or polydipsia. The rest of the 14-point review of systems is negative. PHYSICAL EXAMINATION: GENERAL: The patient is alert and oriented x3, not in any acute distress. Well developed, well nourished. HEENT: Pupils are round and equally reacting to light. EOMI. No scleral icterus. No conjunctival pallor. Normocephalic, atraumatic. No pharyngeal erythema. No thyromegaly. CARDIOVASCULAR: S1 and S2 present. No murmurs, rubs, or gallops. PULMONARY: Chest is clear to auscultation, no wheezing or crackles. ABDOMEN: Soft, nontender, nondistended, normoactive bowel sounds. No palpable organomegaly. MUSCULOSKELETAL: No joint swelling or deformity. EXTREMITIES: No cyanosis, clubbing, or pedal edema. NEUROLOGICAL: Gross neurological examination did not reveal any focal deficits. SKIN: No rashes. Assessment and plan -Nausea vomiting possible upper GI bleed: Anticoagulation will be held gastroneurology was consulted patient is on Protonix -Fever with abdominal discomfort CT of the abdomen obtained will do septic workup with chest x-ray, urinalysis and culture, blood culture. Will hold off on antibiotics for now as there is no clinical evidence of infection. -History of proximal A. fib presently sinus rhythm patient is on anti- correlation which is on hold for above-mentioned reasons -History of CVA/TIA in the past -Type 2 diabetes mellitus -Hyperlipidemia -Hypertension -Hypothyroidism - osteoarthritis -Depression DVT prophylaxis: No pharmacological DVT prophylaxis because of possibility of GI bleed. Past Medical History Past Medical History: Cancer, CVA/TIA, Diabetes Mellitus, Eye Disorder, GERD/Reflux, Hyperlipidemia, Hypertension, Osteoarthritis (OA), Thyroid Disorder Additional Past Medical History / Comment(s): HX: DM, NO RX SINCE WGT LOSS. SCOLIOSIS, BACK PAIN. SKIN CA, MULT. CVA, SL generalized weakness residual, TIA 04/2013 (pt/francisco j think she has a couple). Irregular heart beat OCC, Bradycardia at times, MINOR HEART MURMUR. GLAUCOMA. LT HIP FX 10/2017, HAS IRRITATING HARDWARE NOW. History of Any Multi-Drug Resistant Organisms: None Reported Past Surgical History: Hysterectomy Additional Past Surgical History / Comment(s): Colonoscopies w/ polypectomy- benign. MAIRA CATARACTS. Epidural INJ Lumbar Spine, LAST 10/07/17. 10/22/17 ORIF LT HIP. Past Anesthesia/Blood Transfusion Reactions: No Reported Reaction Past Psychological History: Anxiety, Depression Smoking Status: Never smoker Past Alcohol Use History: None Reported Past Drug Use History: None Reported - Past Family History Son(s) Family Medical History: Deep Vein Thrombosis (DVT) Father Family Medical History: Coronary Artery Disease (CAD), Myocardial Infarction ( [place]) Additional Family Medical History / Comment(s): Father of [place]-pt unsure what age,. Mother Family Medical History: CVA/TIA Medications and Allergies Home Medications Medication Instructions Recorded Confirmed Type Cholecalciferol [Vitamin D3 (25 25 mcg PO DAILY@0800 10/02/13 03/08/21 History Mcg = 1000 Iu)] Aspirin EC [Ecotrin Low Dose] 81 mg PO DAILY@0800 12/23/15 03/08/21 History rOPINIRole HCL [Requip] 3 mg PO HS 12/23/15 03/08/21 History timoloL maleate [Timolol Maleate] 1 drop BOTH EYES DAILY@0800 12/23/15 03/08/21 History Donepezil HCl [Aricept] 5 mg PO HS 10/15/17 03/08/21 History Ferrous Sulfate [Iron (65 MG 325 mg PO DAILY@0800 12/25/17 03/08/21 History Elemental)] Latanoprost Ophth [Xalatan 0.005%] 1 drop BOTH EYES HS 12/25/17 03/08/21 History Potassium Chloride ER [K-Dur 10] 10 meq PO DAILY@1700 12/25/17 03/08/21 History lisinopriL [Prinivil] 5 mg PO DAILY@0800 12/30/17 03/08/21 History HYDROcodone/APAP 7.5-325MG [[place] 1 tab PO Q4H PRN 02/14/21 03/08/21 History 7.5-325] Loperamide HCl [Imodium A-D] 2 - 4 mg PO QID PRN 02/14/21 03/08/21 History Menthol [Biofreeze] 1 applic TOPICAL BID PRN 02/14/21 03/08/21 History Rivaroxaban [Xarelto] 10 mg PO DAILY@0800 02/14/21 03/08/21 History Rosuvastatin Calcium [Crestor] 5 mg PO HS 02/14/21 03/08/21 History guaiFENesin [guaiFENesin Oral 100 mg PO Q4H PRN 02/14/21 03/08/21 History Solution] Acetaminophen Tab [Tylenol] 650 mg PO Q4H PRN 03/08/21 03/08/21 History Ensure Clear 237 ml PO TID@0800,1200,1700 03/08/21 03/08/21 History Levothyroxine Sodium [Synthroid] 25 mcg PO DAILY@0800 03/08/21 03/08/21 History Magnesium Hydroxide [Milk of 7,200 mg PO Q48H PRN 03/08/21 03/08/21 History Magnesia Concentrate] Mirtazapine [Remeron] 30 mg PO HS 03/08/21 03/08/21 History Na Phos,M-B/Na Phos,Di-Ba [Fleet 133 ml RECTAL DAILY PRN 03/08/21 03/08/21 Histo ry Adult] Sennosides [Senna] 17.2 mg PO HS 03/08/21 03/08/21 History bisacodyL [Dulcolax] 10 mg RECTAL DAILY PRN 03/08/21 03/08/21 History Allergies Allergy/AdvReac Type Severity Reaction Status Date / Time No Known Allergies Allergy Verified 03/08/21 07:29 Physical Exam Vitals: Vital Signs Temp Pulse Pulse Resp BP BP Pulse Ox 03/08/21 10:53 100 18 169/89 97 03/08/21 09:13 100.4 F H 102 H 16 156/73 97 03/08/21 06:24 97.8 F 91 18 175/78 94 L Intake and Output 03/07/21 03/08/21 03/08/21 22:59 06:59 14:59 Other: Weight 53.977 kg 53.977 kg Results CBC & Chem 7: 03/08/21 06:46 03/08/21 06:46 Labs: Abnormal Lab Results - Last 24 Hours (Table) 03/08/21 03/08/21 03/08/21 Range/Units 06:46 06:46 06:46 WBC 19.9 H (3.8-10.6) k/uL Neutrophils # 18.5 H (1.3-7.7) k/uL Lymphocytes # 0.9 L (1.0-4.8) k/uL APTT 18.6 L (22.0-30.0) sec Potassium 3.2 L (3.5-5.1) mmol/L Carbon Dioxide 31 H (22-30) mmol/L Glucose 217 H (74-99) mg/dL Plasma Lactic Acid Ankur (0.7-2.0) mmol/L 03/08/21 Range/Units 06:46 WBC (3.8-10.6) k/uL Neutrophils # (1.3-7.7) k/uL Lymphocytes # (1.0-4.8) k/uL APTT (22.0-30.0) sec Potassium (3.5-5.1) mmol/L Carbon Dioxide (22-30) mmol/L Glucose (74-99) mg/dL Plasma Lactic Acid Ankur 2.6 H* (0.7-2.0) mmol/L Thrombosis Risk Factor Assmnt - Choose All That Apply Any of the Below Risk Factors Present?: No Other Risk Factors: Yes Each Risk Factor Represents 3 Points: Age 75 years or older Other congenital or acquired thrombophilia - If yes, enter type in comment: No Thrombosis Risk Factor Assessment Total Risk Factor Score: 3 Thrombosis Risk Factor Assessment Level: Moderate Risk
--- NOTE | 2021-03-08 12:56 | P.CONS ---
History of Present Illness - Reason for Consult Consult date: 03/08/21 Upper GI bleed Requesting physician: Mario Alberto Webster - Chief Complaint Nausea vomiting, hematemesis - History of Present Illness This is an 85-year-old white female who presented to the emergency department far [facility] [place] with complaints of nausea and vomiting with coffee-ground emesis. The patient has a past medical history including CVA, diabetes mellitus, GERD, hyperlipidemia, hyper tension, thyroid disorder, skin cancer, and irregular heartbeat who is currently on Xarleto. Gastroenterology was consulted regarding the nausea and vomiting with concern for upper GI bleed. Patient states she does have a remote history of peptic ulcer disease. She states she believes she had an EGD at that time. She states this was many years ago. Also states she had a colonoscopy in the past however she's not sure how long ago. She was recently brought to the emergency department couple weeks ago with same complaints of nausea and vomiting with some blood streaks in her emesis. But was sent home with a stable hemoglobin. Denies any blood in her stool or black stool, actually she states she is not sure of the color. Admitting labs WBC 19.9 hemoglobin 12.6 hematocrit 37 platelet count 339,000 INR 0.9 sodium 143 potassium 3.2 total bilirubin 0.4 AST 25 ALT 14 alkaline phosphatase 81 lipase 103. Gastric occult blood positive. Review of Systems REVIEW OF SYSTEMS: CARDIOPULMONARY: No chest pain or shortness of breath. Gastrointestinal: Denies abdominal pain. Nausea and vomiting with coffee- ground emesis. No rectal bleeding, or melena. GENITOURINARY: No dysuria or hematuria. MUSCULOSKELETAL: Reports normal range of motion., Joint pain. SKIN: No rashes. No jaundice. ENDOCRINE: No chills, fevers. No excessive weight gain or loss. No polydipsia or polyuria. PSYCHIATRIC: Unremarkable. NEUROLOGY: No change in mental status. Denies dizziness, headache. ENT: Vision unremarkable. CONSTITUTIONAL: No recent weight loss. No fever, chills, night sweats. Past Medical History Past Medical History: Cancer, CVA/TIA, Diabetes Mellitus, Eye Disorder, GERD/Reflux, Hyperlipidemia, Hypertension, Osteoarthritis (OA), Thyroid Disorder Additional Past Medical History / Comment(s): HX: DM, NO RX SINCE WGT LOSS. SCOLIOSIS, BACK PAIN. SKIN CA, MULT. CVA, SL generalized weakness residual, TIA 04/2013 (pt/francisco j think she has a couple). Irregular heart beat OCC, Manuel cardia at times, MINOR HEART MURMUR. GLAUCOMA. LT HIP FX 10/2017, HAS IRRITATING HARDWARE NOW. History of Any Multi-Drug Resistant Organisms: None Reported Past Surgical History: Hysterectomy Additional Past Surgical History / Comment(s): Colonoscopies w/ polypectomy- benign. MAIRA CATARACTS. Epidural INJ Lumbar Spine, LAST 10/07/17. 10/22/17 ORIF LT HIP. Past Anesthesia/Blood Transfusion Reactions: No Reported Reaction Past Psychological History: Anxiety, Depression Smoking Status: Never smoker Past Alcohol Use History: None Reported Past Drug Use History: None Reported - Past Family History Son(s) Family Medical History: Deep Vein Thrombosis (DVT) Father Family Medical History: Coronary Artery Disease (CAD), Myocardial Infarction (RI) Additional Family Medical History / Comment(s): Father of RI-pt unsure what age,. Mother Family Medical History: CVA/TIA Medications and Allergies Home Medications Medication Instructions Recorded Confirmed Type Cholecalciferol [Vitamin D3 (25 25 mcg PO DAILY@0800 10/02/13 03/08/21 History Mcg = 1000 Iu)] Aspirin EC [Ecotrin Low Dose] 81 mg PO DAILY@0800 12/23/15 03/08/21 History rOPINIRole HCL [Requip] 3 mg PO HS 12/23/15 03/08/21 History timoloL maleate [Timolol Maleate] 1 drop BOTH EYES DAILY@0800 12/23/15 03/08/21 History Donepezil HCl [Aricept] 5 mg PO HS 10/15/17 03/08/21 History Ferrous Sulfate [Iron (65 MG 325 mg PO DAILY@0800 12/25/17 03/08/21 History Elemental)] Latanoprost Ophth [Xalatan 0.005%] 1 drop BOTH EYES HS 12/25/17 03/08/21 History Potassium Chloride ER [K-Dur 10] 10 meq PO DAILY@1700 12/25/17 03/08/21 History lisinopriL [Prinivil] 5 mg PO DAILY@0800 12/30/17 03/08/21 History HYDROcodone/APAP 7.5-325MG [Walton 1 tab PO Q4H PRN 02/14/21 03/08/21 History 7.5-325] Loperamide HCl [Imodium A-D] 2 - 4 mg PO QID PRN 02/14/21 03/08/21 History Menthol [Biofreeze] 1 applic TOPICAL BID PRN 02/14/21 03/08/21 History Rivaroxaban [Xarelto] 10 mg PO DAILY@0800 02/14/21 03/08/21 History Rosuvastatin Calcium [Crestor] 5 mg PO HS 02/14/21 03/08/21 History guaiFENesin [guaiFENesin Oral 100 mg PO Q4H PRN 02/14/21 03/08/21 History Solution] Acetaminophen Tab [Tylenol] 650 mg PO Q4H PRN 03/08/21 03/08/21 History Ensure Clear 237 ml PO TID@0800,1200,1700 03/08/21 03/08/21 History Levothyroxine Sodium [Synthroid] 25 mcg PO DAILY@0800 03/08/21 03/08/21 History Magnesium Hydroxide [Milk of 7,200 mg PO Q48H PRN 03/08/21 03/08/21 History Magnesia Concentrate] Mirtazapine [Remeron] 30 mg PO HS 03/08/21 03/08/21 History Na Phos,M-B/Na Phos,Di-Ba [Fleet 133 ml RECTAL DAILY PRN 03/08/21 03/08/21 History Adult] Sennosides [Senna] 17.2 mg PO HS 03/08/21 03/08/21 History bisacodyL [Dulcolax] 10 mg RECTAL DAILY PRN 03/08/21 03/08/21 History Allergies Allergy/AdvReac Type Severity Reaction Status Date / Time No Known Allergies Allergy Verified 03/08/21 07:29 Physical Exam Vitals: Vital Signs Temp Pulse Resp BP Pulse Ox 03/08/21 06:24 97.8 F 91 18 175/78 94 L Intake and Output 03/07/21 03/08/21 03/08/21 22:59 06:59 14:59 Other: Weight 53.977 kg General appearance: The patient is alert, oriented, appears in no acute di stress. HET: Head is normocephalic and atraumatic. Conjunctiva pink. Sclera anicteric. Neck: Supple without lymphadenopathy. Trachea midline. Heart: S1 S2. Regular rate and rhythm. Lungs: Clear to auscultation. Abdomen: Soft, and tender, nondistended with bowel sounds. No guarding or rigidity. Skin: No rashes. No jaundice. Extremities: Normal skin color and turgor. No pedal edema. Neurological: No focal deficits. Alert and oriented x3. Results CBC & Chem 7: 03/08/21 06:46 03/08/21 06:46 Labs: Abnormal Lab Results - Last 24 Hours (Table) 03/08/21 03/08/21 03/08/21 Range/Units 06:46 06:46 06:46 WBC 19.9 H (3.8-10.6) k/uL Neutrophils # 18.5 H (1.3-7.7) k/uL Lymphocytes # 0.9 L (1.0-4.8) k/uL APTT 18.6 L (22.0-30.0) sec Potassium 3.2 L (3.5-5.1) mmol/L Carbon Dioxide 31 H (22-30) mmol/L Glucose 217 H (74-99) mg/dL Plasma Lactic Acid Ankur (0.7-2.0) mmol/L 03/08/21 Range/Units 06:46 WBC (3.8-10.6) k/uL Neutrophils # (1.3-7.7) k/uL Lymphocytes # (1.0-4.8) k/uL APTT (22.0-30.0) sec Potassium (3.5-5.1) mmol/L Carbon Dioxide (22-30) mmol/L Glucose (74-99) mg/dL Plasma Lactic Acid Ankur 2.6 H* (0.7-2.0) mmol/L Assessment and Plan (1) Upper GI bleed Narrative/Plan: 85-year-old female who with multiple comorbidities with a history of CVA and co ronary artery disease on his Route toe presented to the emergency department from [facility] [place] with complaints of vomiting over the last 1-2 day duration. Up to 2-3 times a day. States that this has been going on intermittently. She was recently seen in the emergency department approximately 2 weeks ago for same symptoms and was sent home with a stable hemoglobin. Patient states she does not feel really nauseous prior to will just start to vomit. Reporting coffee- ground emesis. She does state she has a history of peptic ulcer disease and is status post EGD at that time for which she states was many years ago. She denies previous GI bleed. Hemoglobin is stable on admission at 12.6. She de nies any NSAID use, abdominal pain and is unsure of blood in her stool or dark stool. Possible etiologies include gastritis, peptic ulcer disease, esophagitis, AVM, or other possible etiologies. We'll hold Xarelto and proceed with upper endoscopy on Saturday. Current Visit: Yes Status: Acute Code(s): K92.2 - GASTROINTESTINAL HEMORRHAGE, UNSPECIFIED SNOMED Code(s): 39755671 (2) Nausea & vomiting Current Visit: Yes Status: Acute Code(s): R11.2 - NAUSEA WITH VOMITING, UNSPECIFIED SNOMED Code(s): 11420127 (3) Hypokalemia Current Visit: Yes Status: Acute Code(s): E87.6 - HYPOKALEMIA SNOMED Code(s): 42765867 Plan: 1. Continue symptomatic and supportive care 2. Replace potassium per protocol 3. Antiemetics as needed 4. Protonix 40 mg twice a day for GI prophylaxis 5. Hold Xarelto 6. Will plan upper endoscopy on Saturday. Procedure discussed with patient and her son was at the bedside in detail including risks and benefits. Patient agreeable to proceed. Thank you for this consultation, we will continue to follow. Dr. Luis Torres I agree with the dictator's note, documented as a scribe by Kavita Cuadra.
--- NOTE | 2021-03-08 13:19 | XR ---
EXAMINATION TYPE: XR chest 2V DATE OF EXAM: 03/08/2021 COMPARISON: 01/01/2018 TECHNIQUE: PA and lateral views submitted. HISTORY: Cough FINDINGS: The lungs are clear and there is no pneumothorax, pleural effusion, or focal pneumonia. Diffuse ost eopenia. Atherosclerotic change aorta. Degenerative change of the spine. No overt failure. IMPRESSION: 1. No acute process.
--- NOTE | 2021-03-08 13:34 | CT ---
EXAMINATION TYPE: CT abdomen pelvis wo con DATE OF EXAM: 03/08/2021 COMPARISON: 01/29/2017 HISTORY: Fever, nausea, and vomiting CT DLP: 215.3 mGycm Examination of the solid and hollow viscera is limited given the lack of contrast. FINDINGS: LUNG BASES: No evidence for nodule. No evidence for infiltrate. Small effusions noted bilaterally. LIVER/GB: The gallbladder is unremarkable. No space-occupying hepatic lesion. PANCREAS: No pancreatic mass identified. No inflammatory process seen. SPLEEN: No evidence for splenomegaly. No intrasplenic lesions seen. ADRENALS: No adrenal nodules identified. No evidence for thickening. KIDNEYS: No evidence for renal mass. No nephrolithiasis. No hydronephrosis. BOWEL: Appendix has a normal appearance. There is fluid distention of the stomach. Small and large skylar wel are of normal caliber. Sigmoid diverticulosis without diverticulitis. No evidence of bowel obstru ction. No inflammatory process. Lymph nodes: No evidence for adenopathy greater than 1 cm. Abdominal aorta: Atheromatous changes seen. No evidence for aneurysm. Genital organs: No significant abnormality. Other: Left hip prosthesis. IMPRESSION: 1. No gastric distention with fluid contents. Remaining small and large bowel are of normal caliber. No acute inflammatory process seen. No evidence for free air.
[2021-03-08] MEDS: ATORVASTATIN 10 MG TAB PO SCH (20:03)
[2021-03-08] MEDS: LATANOPROST 0.005% OPHTH DROPS 2.5 ML BTL BOTH EYES SCH (20:03)
[2021-03-08] MEDS: DONEPEZIL 5 MG TAB PO SCH (20:03)
[2021-03-08] MEDS: MIRTAZAPINE 15 MG TAB PO SCH (20:03)
[2021-03-09] MEDS ORDERED: METOCLOPRAMIDE 5 MG/ML 2 ML VIAL IVP PRN (00:16)
[2021-03-09] MEDS: PANTOPRAZOLE 40 MG/10 ML VIAL IVP SCH ×3 (00:33→22:11)
[2021-03-09] MEDS: LEVOTHYROXINE 25 MCG TAB PO SCH (05:42)
[2021-03-09 09:31] LABS: HCT 32.7 % (37.2-46.3); HGB 10.2 g/dL (12.0-15.0); MCH 31.7 pg (27.0-32.0); MCHC 31.2 g/dL (32.0-37.0); MCV 101.6 fL (80.0-97.0); Mean Platelet Volume 10.5 fL (9.5-12.2); Platelet Count 211 X 10*3/uL (140-440); RBC 3.22 X 10*6/uL (4.10-5.20); RDW 13.8 % (11.5-14.5); WBC 18.03 X 10*3/uL (4.50-10.00)
[2021-03-09 09:40] LABS: African American GFR (CKD) 96.2 (60.0-200.0); Anion Gap 9.1 mmol/L (10.00-18.00); BUN/Creat Ratio 21.93 Ratio (12.00-20.00); Blood Urea Nitrogen 13.2 mg/dL (9.0-27.0); Calcium 8.7 mg/dL (8.7-10.3); Potassium 3.9 mmol/L (3.5-5.5)
[2021-03-09] MEDS: SODIUM CHLORIDE 0.9% 1,000 ML IV SCH (10:39)
[2021-03-09] MEDS: TIMOLOL 0.25% OPHTH DROPS 5 ML BTL BOTH EYES SCH (10:41)
[2021-03-09 14:35] LABS: Appearance,Urine Clear (Clear); Bilirubin,Urine Negative (Negative); Blood,Urine Negative (Negative); Color,Urine Yellow; Glucose,Urine (UA) Negative (Negative); Ketones,Urine Negative (Negative); Leukocyte Esterase,Urine Negative (Negative); Nitrite,Urine Negative (Negative); PH, Urine 6.5 (5.0-8.0); Protein,Urine Trace (Negative); Specific Gravity,Urine 1.016 (1.001-1.035); Urobilinogen,Urine <2.0 mg/dL (<2.0)
--- NOTE | 2021-03-09 15:15 | P.PN ---
Subjective Progress Note Date: 03/09/21 84-year-old female came in with the complaints of emesis coffee-ground to brownish color. Patient is on anticoagulation with Xarelto for atrial fibrillation and stroke in the past. This is being held and patient is being admitted for possible upper GI bleed and patient was started on Protonix. Patient apparently had similar episode in the past. Patient later is found to have fever of 100.4 Covid 19 was negative, patient clinically doesn't have any UTI or pneumonia will obtain a UA, chest x-ray 2 vie alexander PeraltaEliud nausea vomiting abdominal discomfort and also obtain a CT of the abdomen to find it very any source of infection patient will not be started on any antibiotic at this time blood cultures will be obtained. Patient does have leukocytosis which can be reactive from nausea vomiting. 03/09/21 Patient evaluated today resting in bed. She currently denies any nausea or vomiting. States her abdominal pain is improving. She denies any diarrhea, states her last BM was a few days ago, denies blood. CT abdomen and pelvis shows no gastric distention with fluid contents. Remaining small and large bowel are of normal caliber. No acute inflammatory process seen. No evidence for free air. Plan is to continue on Protonix, replace lites as needed, hold Xarelto and plan is for upper endoscopy on Saturday. Labs today show WBC 18.03, hemoglobin 10.2, potassium 3.9, sodium 144. Lactic acid improved to 1.5. Urinalysis negative. ROS Constitutional: Denied any fatigue denied any fever. Cardio vascular: denied any chest pain, palpitations Gastrointestinal denied any nausea, vomiting, diarrhea Pulmonary: Denied any shortness of breath cough Neurologic denied any new focal deficits All inpatient medications were reviewed and appropriate changes in these medications as dictated in the interval history and assessment and plan. PHYSICAL EXAMINATION: GENERAL: The patient is alert and oriented x3, not in any acute distress. Well developed, well nourished. HEENT: Pupils are round and equally reacting to light. EOMI. No scleral icterus. No conjunctival pallor. Normocephalic, atraumatic. No pharyngeal erythema. No thyromegaly. CARDIOVASCULAR: S1 and S2 present. No murmurs, rubs, or gallops. PULMONARY: Chest is clear to auscultation, no wheezing or crackles. ABDOMEN: Soft, nontender, nondistended, normoactive bowel sounds. No palpable organomegaly. MUSCULOSKELETAL: No joint swelling or deformity. EXTREMITIES: No cyanosis, clubbing, or pedal edema. NEUROLOGICAL: Gross neurological examination did not reveal any focal deficits. SKIN: No rashes. Assessment and plan -Nausea vomiting possible upper GI bleed: Xareto O/H, plan for upper scope tomorrow -Fever with abdominal discomfort CT of the abdomen obtained negative, chest xray negative, WBC elevated, Urinalysis negative -Leukocytosis with lactic acidosis on admission, unclear etiology for infection -History of proximal A. fib presently sinus rhythm, xarelto O/H as mentioned above -History of CVA/TIA in the past -Type 2 diabetes mellitus -Hyperlipidemia -Hypertension -Hypothyroidism -osteoarthritis -Depression DVT prophylaxis: No pharmacological DVT prophylaxis because of possibility of GI bleed. Plan Upper endoscopy tomorrow Hold xarelto Repeat labs tomorrow NPO diet after 12 Objective - Vital Signs Vital signs: Vital Signs Temp 98.6 F 03/09/21 07:10 Pulse 90 03/09/21 07:10 Resp 17 03/09/21 08:00 BP 147/75 03/09/21 07:10 Pulse Ox 96 03/09/21 07:10 Intake & Output 03/08/21 03/09/21 03/09/21 18:59 06:59 18:59 Intake Total 210 Output Total 100 Balance 210 -100 Weight 53.977 kg Intake: Oral 210 Output: Emesis 100 Other: Voiding Method Diaper # Voids 0 1 1 - Labs CBC & Chem 7: 03/09/21 05:12 03/09/21 05:12 Labs: Abnormal Lab Results - Last 24 Hours (Table) 03/09/21 03/09/21 Range/Units 05:12 05:12 WBC 18.03 H (4.50-10.00) X 10*3/uL RBC 3.22 L (4.10-5.20) X 10*6/uL Hgb 10.2 L (12.0-15.0) g/dL Hct 32.7 L (37.2-46.3) % MCV 101.6 H (80.0-97.0) fL MCHC 31.2 L (32.0-37.0) g/dL Anion Gap 9.10 L (10.00-18.00) mmol/L BUN/Creatinine Ratio 21.93 H (12.00-20.00) Ratio Glucose 134 H (70-110) mg/dL
--- NOTE | 2021-03-09 15:58 | P.PN ---
Subjective Progress Note Date: 03/09/21 Principal diagnosis: Upper GI bleed This is an 85-year-old white female who presented to the emergency department far [facility] with complaints of nausea and vomiting with coffee-ground emesis. The patient has a past medical history including CVA, diabetes mellitus, GERD, hyperlipidemia, hyper tension, thyroid disorder, skin cancer, and irregular heartbeat who is currently on Xarleto. Gastroenterology was consulted regarding the nausea and vomiting with concern for upper GI bleed. Patient states she does have a remote history of peptic ulcer disease. She states she believes she had an EGD at that time. She states this was many years ago. Also states she had a colonoscopy in the past however she's not sure how long ago. She was recently brought to the emergency department couple weeks ago with same complaints of nausea and vomiting with some blood streaks in her emesis. But was sent home with a stable hemoglobin. Denies any blood in her stool or black stool, actually she states she is not sure of the color. Admitting labs WBC 19.9 hemoglobin 12.6 hematocrit 37 platelet count 339,000 INR 0.9 sodium 143 potassium 3.2 total bilirubin 0.4 AST 25 ALT 14 alkaline phosphatase 81 lipase 103. Gastric occult blood positive. 03/09/2021 The patient is seen and examined lying in bed. Apparently throughout the night patient had had nausea and vomiting and was made nothing by mouth. Was reported that she had anymore coffee-ground emesis. Patient states today she has not had any further vomiting this morning. She denies any abdominal pain. She has been afebrile. repeat labs today WBC 18 hemoglobin 10.2 Objective - Vital Signs Vital signs: Vital Signs Temp 98.6 F 03/09/21 07:10 Pulse 90 03/09/21 07:10 Resp 17 03/09/21 07:10 BP 147/75 03/09/21 07:10 Pulse Ox 96 03/09/21 07:10 Intake & Output 03/08/21 03/09/21 03/09/21 18:59 06:59 18:59 Intake Total 210 Output Total 100 Balance 210 -100 Weight 53.977 kg Intake: Oral 210 Output: Emesis 100 Other: # Voids 0 1 - Exam General appearance: The patient is alert, oriented, appears in no acute distress. HET: Head is normocephalic and atraumatic. Conjunctiva pink. Sclera anicteric. Neck: Supple without lymphadenopathy. Abdomen: Soft, nontender, nondistended with bowel sounds. No guarding or rigidity. Extremities: Normal skin color and turgor. No pedal edema Skin: No rashes, no jaundice Neurological: No focal deficits. Alert and oriented. - Labs CBC & Chem 7: 03/09/21 05:12 03/09/21 05:12 Assessment and Plan (1) Upper GI bleed Narrative/Plan: 85-year-old female who with multiple comorbidities with a history of CVA and coronary artery disease on his Route toe presented to the emergency department from [facility] with complaints of vomiting over the last 1-2 day duration. Up to 2-3 times a day. States that this has been going on intermittently. She was recently seen in the emergency department approximately 2 weeks ago for same symptoms and was sent home with a stable hemoglobin. Patient states she does n ot feel really nauseous prior to will just start to vomit. Reporting coffee- ground emesis. She does state she has a history of peptic ulcer disease and is status post EGD at that time for which she states was many years ago. She denies previous GI bleed. Hemoglobin is stable on admission at 12.6. She denies any NSAID use, abdominal pain and is unsure of blood in her stool or dark stool. Possible etiologies include gastritis, peptic ulcer disease, esophagitis, AVM, or other possible etiologies. We'll hold Xarelto and proceed with upper endoscopy on Saturday. Current Visit: Yes Status: Acute Code(s): K92.2 - GASTROINTESTINAL HEMORRHAGE, UNSPECIFIED SNOMED Code(s): 74578555 (2) Nausea & vomiting Current Visit: Yes Status: Acute Code(s): R11.2 - NAUSEA WITH VOMITING, UNSPECIFIED SNOMED Code(s): 44726026 (3) Hypokalemia Current Visit: Yes Status: Acute Code(s): E87.6 - HYPOKALEMIA SNOMED Code(s): 87889605 Plan: 1. Continue symptomatic and supportive care 2. Repeat CBC in the morning 3. Antiemetics as needed 4. Protonix 40 mg twice a day for GI prophylaxis 5. Hold Xarelto 6. Upper endoscopy tomorrow. Procedure discussed with patient and her son was at the bedside in detail including risks and benefits. Patient agreeable to proceed. 7. Clear liquid diet, NPO after midnight Thank you for this consultation, we will continue to follow. Dr. Luis Torres I agree with the dictator's note, documented as a scribe by Kavita Cuadra.
[2021-03-09] MEDS: ATORVASTATIN 10 MG TAB PO SCH (22:11)
[2021-03-09] MEDS: MIRTAZAPINE 15 MG TAB PO SCH (22:11)
[2021-03-09] MEDS: DONEPEZIL 5 MG TAB PO SCH (22:11)
[2021-03-09] MEDS: LATANOPROST 0.005% OPHTH DROPS 2.5 ML BTL BOTH EYES SCH (22:12)
[2021-03-10] MEDS: SODIUM CHLORIDE 0.9% 1,000 ML IV SCH ×2 (01:43→20:39)
[2021-03-10] MEDS: LEVOTHYROXINE 25 MCG TAB PO SCH (05:15)
[2021-03-10] MEDS: PANTOPRAZOLE 40 MG/10 ML VIAL IVP SCH ×2 (08:37→20:39)
[2021-03-10] MEDS: TIMOLOL 0.25% OPHTH DROPS 5 ML BTL BOTH EYES SCH (08:37)
[2021-03-10 09:31] LABS: Basophils # (A) 0.04 X 10*3/uL (0.00-0.10); Basophils % (A) 0.3 %; Eosinophils # (A) 0.07 X 10*3/uL (0.04-0.35); Eosinophils % (A) 0.6 %; HCT 31.7 % (37.2-46.3); HGB 9.8 g/dL (12.0-15.0); Lymphocytes # (A) 1.91 X 10*3/uL (0.90-5.00); Lymphocytes % (A) 16.2 %; MCH 31.2 pg (27.0-32.0); MCHC 30.9 g/dL (32.0-37.0); Mean Platelet Volume 10.4 fL (9.5-12.2); Monocytes # (A) 0.55 X 10*3/uL (0.20-1.00); Monocytes % (A) 4.7 %; Neutrophils % (A) 77.8 %; Platelet Count 201 X 10*3/uL (140-440); RBC 3.14 X 10*6/uL (4.10-5.20); RDW 13.2 % (11.5-14.5); WBC 11.82 X 10*3/uL (4.50-10.00)
[2021-03-10 09:57] LABS: African American GFR (CKD) 96.3 (60.0-200.0); Anion Gap 12.9 mmol/L (10.00-18.00); BUN/Creat Ratio 17.5 Ratio (12.00-20.00); Blood Urea Nitrogen 10.5 mg/dL (9.0-27.0); Calcium 8.5 mg/dL (8.7-10.3); Carbon Dioxide 20.1 mmol/L (20.0-27.5); Non-African American GFR(CKD) 83.1 (60.0-200.0); Potassium 3.7 mmol/L (3.5-5.5)
[2021-03-10] MEDS ORDERED: LIDOCAINE 1% INJ 10MG/ML (20 ML MDV) ONE (13:42)
[2021-03-10] MEDS ORDERED: PROPOFOL 10 MG/ML 20 ML VIAL IV ONE (13:42)
[2021-03-10] MEDS ORDERED: IV FLUID CONTINUATION 1,000 ML IV ONE (13:53)
--- NOTE | 2021-03-10 14:02 | P.PCN ---
Date of Procedure: 03/10/21 Procedure(s) Performed: BRIEF HISTORY: Patient is a 85-year-old, pleasant, white female admitted hospital with nausea vomiting and coffee-ground emesis. She has been on Xarelto which is currently on hold. She is scheduled for an upper endoscopy to evaluate further PROCEDURE PERFORMED: Esophagogastroduodenoscopy biopsy . PREOPERATIVE DIAGNOSIS: Nausea vomiting and coffee-ground emesis IV sedation per anesthesia. PROCEDURE: After informed consent was obtained, the patient was brought into the endoscopy unit. IV sedation was administered by Anesthesia under continuous monitoring. Initially the Olympus GIF-140 video endoscope was inserted into the mouth. Esophagus intubated without any difficulty. It was gradually advanced into the stomach . There was evidence of pyloric stenosis noted. With gentle manual position I was able to gradually advance the scope into the duodenum. The bulb and the second part of the duodenum appeared normal. The scope at this time was withdrawn to the stomach, adequately insufflated with air, and upon careful examination, mucosa of the antrum, and diffuse gastritis and biopsies were done from this area. The cause of the body, cardia and the fundus appeared normal. The scope was then withdrawn into the esophagus. The GE junction was located at 35 cm from the incisors. small hiatal hernia noted. There was severe esophagitis involving the mid and distal esophagus extending from 25-35 cm from the incisors with erosions and exudates consistent with LA grade C reflux esophagitis. The proximal esophagus appeared normal and the patient tolerated the procedure well. IMPRESSION: 1. Severe esophagitis with erosions and exudates involving the entire mid and distal esophagus consistent with LA grade C reflux esophagitis 2. Pyloric stenosis 3. Mucosal erythema and friable idiopathic antrum consistent with gastritis 4 small hiatal hernia. RECOMMENDATIONS: The findings of this examination were discussed with the patient . At this time will continue on Protonix 40 mg twice daily, recommend small frequent meals.. If she continues to have persistent nausea vomiting, will consider EGD with pyloric dilation in the future. Since no active bleeding, oral anticoagulation can be resumed if clinically indicated,
--- NOTE | 2021-03-10 15:56 | P.DS ---
Providers Date of admission: 03/10/21 08:52 Attending physician: Corrina Lott Consults: 03/08/21 08:08 Consult Physician Urgent Consulting Provider: Gerri Torres Reason/Comments: Upper GI bleed Do you want consulting provider notified?: Yes Primary care physician: Melissa Cali [facility] Course: Final Diagnosis -Nausea vomiting possible upper GI bleed: Xareto O/H, plan for upper scope tomor row -Fever with abdominal discomfort CT of the abdomen obtained negative, chest xray negative, WBC elevated, Urinalysis negative -Leukocytosis with lactic acidosis on admission, unclear etiology for infection -History of proximal A. fib presently sinus rhythm, xarelto O/H as mentioned above -History of CVA/TIA in the past -Type 2 diabetes mellitus -Hyperlipidemia -Hypertension -Hypothyroidism -osteoarthritis -Depression Discharge Disposition PT OT evaluation recommended subacute rehab or ECF with 24/7 care. Patient can be discharged back to ECF today. Repeat labs in 2-3 days. Hospital Course 84-year-old female came in with the complaints of emesis coffee-ground to brownish color. Patient is on anticoagulation with Xarelto for atrial fibrillation and stroke in the past. This is being held and patient is being admitted for possible upper GI bleed and patient was started on Protonix. Patient apparently had similar episode in the past. Patient later is found to have fever of 100.4 Covid 19 was negative. She denies any diarrhea, states her last BM was a few days ago, denies blood. CT abdomen and pelvis shows no gastric distention with fluid contents. Remaining small and large bowel are of normal caliber. No acute inflammatory process seen. No evidence for free air. Plan is to continue on Protonix 40 mg PO BID on discharge, replace lites as needed. Labs today show WBC 18.03, hemoglobin 10.2, potassium 3.9, sodium 144. Lactic acid improved to 1.5. Urinalysis negative. Patient underwent EGD today with Dr. Torres which was severe esophagitis with erosions and exudates involving the entire mid and distal stoppages consistent with LAD grade C reflux esophagitis. There is pyloric stenosis. Mucosal erythema and friable idiopathic antrum consistent with gastritis. Small hiatal hernia. Recommendations were to continue on Protonix 40 mg twice a day with small frequent meals. Follow-up with GI outpatient and they may consider EGD with pyloric dilation in the future if she continues to have persistent nausea or vomiting. Cleared for Xarelto. Patient was also cleared by GI services for discharge. 03/10/2021 Patient evaluated today resting the bed. She denies any nausea vomiting or diarrhea. She denies any chest pain, cough or shortness of breath. She underwent an EGD today with GI services findings as described above. We started her on Protonix 40 mg by mouth twice a day and she will follow up with GI outpatient and she can be discharged today. There are no signs of acute active bleeding. White blood cell count is 11.82, hemoglobin stable at 9.8, chemistry panel is within normal limits, urinalysis negative. Please see medication reconciliation for a list of current medications. Thank you for allowing us to participate in the care of this patient. Patient Condition at Discharge: Fair Plan - Discharge Summary Discharge Rx Participant: No New Discharge Prescriptions: New Pantoprazole [Protonix] 40 mg PO BID #60 tab Acetaminophen Tab [Tylenol] 650 mg PO Q6HR PRN tab PRN Reason: Mild Pain Or Fever > 100.5 Continue Cholecalciferol [Vitamin D3 (25 Mcg = 1000 Iu)] 25 mcg PO DAILY@0800 Aspirin EC [Ecotrin Low Dose] 81 mg PO DAILY@0800 timoloL maleate [Timolol Maleate] 1 drop BOTH EYES DAILY@0800 rOPINIRole HCL [Requip] 3 mg PO HS Donepezil HCl [Aricept] 5 mg PO HS Ferrous Sulfate [Iron (65 MG Elemental)] 325 mg PO DAILY@0800 Latanoprost Ophth [Xalatan 0.005%] 1 drop BOTH EYES HS Potassium Chloride ER [K-Dur 10] 10 meq PO DAILY@1700 lisinopriL [Prinivil] 5 mg PO DAILY@0800 guaiFENesin [guaiFENesin Oral Solution] 100 mg PO Q4H PRN PRN Reason: Cough Loperamide HCl [Imodium A-D] 2 - 4 mg PO QID PRN PRN Reason: Diarrhea Menthol [Biofreeze] 1 applic TOPICAL BID PRN PRN Reason: lower back pain Rosuvastatin Calcium [Crestor] 5 mg PO HS Na Phos,M-B/Na Phos,Di-Ba [Fleet Adult] 133 ml RECTAL DAILY PRN PRN Reason: Constipation Mirtazapine [Remeron] 30 mg PO HS Magnesium Hydroxide [Milk of Magnesia Concentrate] 7,200 mg PO Q48H PRN PRN Reason: Constipation Sennosides [Senna] 17.2 mg PO HS Rivaroxaban [Xarelto] 10 mg PO DAILY@0800 bisacodyL [Dulcolax] 10 mg RECTAL DAILY PRN PRN Reason: Constipation Ensure Clear 237 ml PO TID@0800,1200,1700 Acetaminophen Tab [Tylenol] 650 mg PO Q4H PRN PRN Reason: Pain Levothyroxine Sodium [Synthroid] 25 mcg PO DAILY@0800 HYDROcodone/APAP 7.5-325MG [[place] 7.5-325] 1 tab PO Q4H PRN #4 tab PRN Reason: Pain Discharge Medication List Cholecalciferol [Vitamin D3 (25 Mcg = 1000 Iu)] 25 mcg PO DAILY@0800 10/02/13 [History] Aspirin EC [Ecotrin Low Dose] 81 mg PO DAILY@0800 12/23/15 [History] rOPINIRole HCL [Requip] 3 mg PO HS 12/23/15 [History] timoloL maleate [Timolol Maleate] 1 drop BOTH EYES DAILY@0800 12/23/15 [History] Donepezil HCl [Aricept] 5 mg PO HS 10/15/17 [History] Ferrous Sulfate [Iron (65 MG Elemental)] 325 mg PO DAILY@0800 12/25/17 [History] Latanoprost Ophth [Xalatan 0.005%] 1 drop BOTH EYES HS 12/25/17 [History] Potassium Chloride ER [K-Dur 10] 10 meq PO DAILY@1700 12/25/17 [History] lisinopriL [Prinivil] 5 mg PO DAILY@0800 12/30/17 [History] Loperamide HCl [Imodium A-D] 2 - 4 mg PO QID PRN 02/14/21 [History] Menthol [Biofreeze] 1 applic TOPICAL BID PRN 02/14/21 [History] Rivaroxaban [Xarelto] 10 mg PO DAILY@0800 02/14/21 [History] Rosuvastatin Calcium [Crestor] 5 mg PO HS 02/14/21 [History] guaiFENesin [guaiFENesin Oral Solution] 100 mg PO Q4H PRN 02/14/21 [History] Acetaminophen Tab [Tylenol] 650 mg PO Q4H PRN 03/08/21 [History] Ensure Clear 237 ml PO TID@0800,1200,1700 03/08/21 [History] Levothyroxine Sodium [Synthroid] 25 mcg PO DAILY@0800 03/08/21 [History] Magnesium Hydroxide [Milk of Magnesia Concentrate] 7,200 mg PO Q48H PRN 03/08/21 [History] Mirtazapine [Remeron] 30 mg PO HS 03/08/21 [History] Na Phos,M-B/Na Phos,Di-Ba [Fleet Adult] 133 ml RECTAL DAILY PRN 03/08/21 [History] Sennosides [Senna] 17.2 mg PO HS 03/08/21 [History] bisacodyL [Dulcolax] 10 mg RECTAL DAILY PRN 03/08/21 [History] Acetaminophen Tab [Tylenol] 650 mg PO Q6HR PRN tab 03/10/21 [Rx] HYDROcodone/APAP 7.5-325MG [[place] 7.5-325] 1 tab PO Q4H PRN #4 tab 03/10/21 [Rx] Pantoprazole [Protonix] 40 mg PO BID #60 tab 03/10/21 [Rx] Follow up Appointment(s)/Referral(s): Gerri Torres MD [STAFF PHYSICIAN] - 1 Week Melissa Leiva MD [Primary Care Provider] - 1-2 days Ambulatory/Diagnostic Orders: Basic Metabolic Panel [LAB.AMB] Time Frame: 2 Days, Location: None Selected Complete Blood Count w/diff [LAB.AMB] Time Frame: 2 Days, Location: None Selected Patient Instructions/Handouts: Gastritis (DC), Esophagitis (DC) Activity/Diet/Wound Care/Special Instructions: Can return to [facility] Discharge Disposition: TRANSFER TO SNF/ECF
[2021-03-10] MEDS: ATORVASTATIN 10 MG TAB PO SCH (20:38)
[2021-03-10] MEDS: DONEPEZIL 5 MG TAB PO SCH (20:38)
[2021-03-10] MEDS: LATANOPROST 0.005% OPHTH DROPS 2.5 ML BTL BOTH EYES SCH (20:38)
[2021-03-10] MEDS: MIRTAZAPINE 15 MG TAB PO SCH (20:38)
[2021-03-11 01:42] VITALS: TEMP 98.5
[2021-03-11] MEDS: SODIUM CHLORIDE 0.9% 1,000 ML IV SCH (04:30)
[2021-03-11] MEDS: LEVOTHYROXINE 25 MCG TAB PO SCH (05:40)
[2021-03-11] MEDS ORDERED: RIVAROXABAN 10 MG TAB PO SCH (08:00)
[2021-03-11 08:28] VITALS: BP 155/76; PULSE 80; RESP 18
[2021-03-11] MEDS: PANTOPRAZOLE 40 MG/10 ML VIAL IVP SCH (09:23)
[2021-03-11] MEDS: TIMOLOL 0.25% OPHTH DROPS 5 ML BTL BOTH EYES SCH (09:24)
--- NOTE | 2021-03-11 11:04 | P.DS ---
Providers Date of admission: 03/10/21 08:52 Attending physician: Corrina Lott Consults: 03/08/21 08:08 Consult Physician Urgent Consulting Provider: Gerri Torres Reason/Comments: Upper GI bleed Do you want consulting provider notified?: Yes Primary care physician: Melissa Cali [facility] Course: Final Diagnosis -Nausea vomiting possible upper GI bleed: Xareto O/H, plan for upper scope tomor row -Fever with abdominal discomfort CT of the abdomen obtained negative, chest xray negative, WBC elevated, Urinalysis negative -Leukocytosis with lactic acidosis on admission, unclear etiology for infection -History of proximal A. fib presently sinus rhythm, xarelto O/H as mentioned above -History of CVA/TIA in the past -Type 2 diabetes mellitus -Hyperlipidemia -Hypertension -Hypothyroidism -osteoarthritis -Depression Discharge Disposition PT OT evaluation recommended subacute rehab or ECF with 24/7 care. Patient can be discharged back to ECF today. Repeat labs in 2-3 days. Hospital Course 84-year-old female came in with the complaints of emesis coffee-ground to brownish color. Patient is on anticoagulation with Xarelto for atrial fibrillation and stroke in the past. This is being held and patient is being admitted for possible upper GI bleed and patient was started on Protonix. Patient apparently had similar episode in the past. Patient later is found to have fever of 100.4 Covid 19 was negative. She denies any diarrhea, states her last BM was a few days ago, denies blood. CT abdomen and pelvis shows no gastric distention with fluid contents. Remaining small and large bowel are of normal caliber. No acute inflammatory process seen. No evidence for free air. Plan is to continue on Protonix 40 mg PO BID on discharge, replace lites as needed. Labs today show WBC 18.03, hemoglobin 10.2, potassium 3.9, sodium 144. Lactic acid improved to 1.5. Urinalysis negative. Patient underwent EGD today with Dr. Torres which was severe esophagitis with erosions and exudates involving the entire mid and distal stoppages consistent with LAD grade C reflux esophagitis. There is pyloric stenosis. Mucosal erythema and friable idiopathic antrum consistent with gastritis. Small hiatal hernia. Recommendations were to continue on Protonix 40 mg twice a day with small frequent meals. Follow-up with GI outpatient and they may consider EGD with pyloric dilation in the future if she continues to have persistent nausea or vomiting. Cleared for Xarelto. Patient was also cleared by GI services for discharge. We started her on Protonix 40 mg by mouth twice a day and she will follow up with GI outpatient and she can be discharged today. 03/11/2021 Evaluated today, stable for return to [facility]. Denies chest pain, chest pressure, cough, SOB. Denies nausea, vomiting, abdominal pain. Abdomen is soft and nontender, tolerating diet. GI Follow up outpatient. Labs are stable. Please see medication reconciliation for a list of current medications. Thank you for allowing us to participate in the care of this patient. Patient Condition at Discharge: Fair Plan - Discharge Summary Discharge Rx Participant: No New Discharge Prescriptions: New Pantoprazole [Protonix] 40 mg PO BID #60 tab Acetaminophen Tab [Tylenol] 650 mg PO Q6HR PRN tab PRN Reason: Mild Pain Or Fever > 100.5 Continue Cholecalciferol [Vitamin D3 (25 Mcg = 1000 Iu)] 25 mcg PO DAILY@0800 Aspirin EC [Ecotrin Low Dose] 81 mg PO DAILY@0800 timoloL maleate [Timolol Maleate] 1 drop BOTH EYES DAILY@0800 rOPINIRole HCL [Requip] 3 mg PO HS Donepezil HCl [Aricept] 5 mg PO HS Ferrous Sulfate [Iron (65 MG Elemental)] 325 mg PO DAILY@0800 Latanoprost Ophth [Xalatan 0.005%] 1 drop BOTH EYES HS Potassium Chloride ER [K-Dur 10] 10 meq PO DAILY@1700 lisinopriL [Prinivil] 5 mg PO DAILY@0800 guaiFENesin [guaiFENesin Oral Solution] 100 mg PO Q4H PRN PRN Reason: Cough Loperamide HCl [Imodium A-D] 2 - 4 mg PO QID PRN PRN Reason: Diarrhea Menthol [Biofreeze] 1 applic TOPICAL BID PRN PRN Reason: lower back pain Rosuvastatin Calcium [Crestor] 5 mg PO HS Na Phos,M-B/Na Phos,Di-Ba [Fleet Adult] 133 ml RECTAL DAILY PRN PRN Reason: Constipation Mirtazapine [Remeron] 30 mg PO HS Magnesium Hydroxide [Milk of Magnesia Concentrate] 7,200 mg PO Q48H PRN PRN Reason: Constipation Sennosides [Senna] 17.2 mg PO HS Rivaroxaban [Xarelto] 10 mg PO DAILY@0800 bisacodyL [Dulcolax] 10 mg RECTAL DAILY PRN PRN Reason: Constipation Ensure Clear 237 ml PO TID@0800,1200,1700 Acetaminophen Tab [Tylenol] 650 mg PO Q4H PRN PRN Reason: Pain Levothyroxine Sodium [Synthroid] 25 mcg PO DAILY@0800 HYDROcodone/APAP 7.5-325MG [[place] 7.5-325] 1 tab PO Q4H PRN #4 tab PRN Reason: Pain Discharge Medication List Cholecalciferol [Vitamin D3 (25 Mcg = 1000 Iu)] 25 mcg PO DAILY@0800 10/02/13 [History] Aspirin EC [Ecotrin Low Dose] 81 mg PO DAILY@0800 12/23/15 [History] rOPINIRole HCL [Requip] 3 mg PO HS 12/23/15 [History] timoloL maleate [Timolol Maleate] 1 drop BOTH EYES DAILY@0812/23/15 [History] Donepezil HCl [Aricept] 5 mg PO HS 10/15/17 [History] Ferrous Sulfate [Iron (65 MG Elemental)] 325 mg PO DAILY@0812/25/17 [History] Latanoprost Ophth [Xalatan 0.005%] 1 drop BOTH EYES HS 12/25/17 [History] Potassium Chloride ER [K-Dur 10] 10 meq PO DAILY@1700 12/25/17 [History] lisinopriL [Prinivil] 5 mg PO DAILY@0812/30/17 [History] Loperamide HCl [Imodium A-D] 2 - 4 mg PO QID PRN 02/14/21 [History] Menthol [Biofreeze] 1 applic TOPICAL BID PRN 02/14/21 [History] Rivaroxaban [Xarelto] 10 mg PO DAILY@0800 02/14/21 [History] Rosuvastatin Calcium [Crestor] 5 mg PO HS 02/14/21 [History] guaiFENesin [guaiFENesin Oral Solution] 100 mg PO Q4H PRN 02/14/21 [History] Acetaminophen Tab [Tylenol] 650 mg PO Q4H PRN 03/08/21 [History] Ensure Clear 237 ml PO TID@0800,1200,1700 03/08/21 [History] Levothyroxine Sodium [Synthroid] 25 mcg PO DAILY@0800 03/08/21 [History] Magnesium Hydroxide [Milk of Magnesia Concentrate] 7,200 mg PO Q48H PRN 03/08/21 [History] Mirtazapine [Remeron] 30 mg PO HS 03/08/21 [History] Na Phos,M-B/Na Phos,Di-Ba [Fleet Adult] 133 ml RECTAL DAILY PRN 03/08/21 [History] Sennosides [Senna] 17.2 mg PO HS 03/08/21 [History] bisacodyL [Dulcolax] 10 mg RECTAL DAILY PRN 03/08/21 [History] Acetaminophen Tab [Tylenol] 650 mg PO Q6HR PRN tab 03/10/21 [Rx] HYDROcodone/APAP 7.5-325MG [[place] 7.5-325] 1 tab PO Q4H PRN #4 tab 03/10/21 [Rx] Pantoprazole [Protonix] 40 mg PO BID #60 tab 03/10/21 [Rx] Follow up Appointment(s)/Referral(s): Gerri Torres MD [STAFF PHYSICIAN] - 1 Week Melissa Leiva MD [Primary Care Provider] - 1-2 days Ambulatory/Diagnostic Orders: Basic Metabolic Panel [LAB.AMB] Time Frame: 2 Days, Location: None Selected Complete Blood Count w/diff [LAB.AMB] Time Frame: 2 Days, Location: None Selected Patient Instructions/Handouts: Gastritis (DC), Esophagitis (DC) Activity/Diet/Wound Care/Special Instructions: Can return to [facility] Discharge Disposition: TRANSFER TO SNF/ECF
== END 2021-03-11 11:45 | DRG 369 ==
LOC: EC 06:21 → 6NMEDSUR 08:11 → OBSVTOIN 03-10 08:52
PROVIDERS: ADMIT Internal Medicine; ATTEND Internal Medicine
PROC: 0DB78ZX Excision of Stomach, Pylorus, Via Natural or Artificial Opening Endoscopic, Diagnostic (ICD-10-PCS; principal; 2021-03-10 12:50)
DX: K21.01 Gastro-esophageal reflux disease with esophagitis, with bleeding (principal); E87.2 Acidosis; K31.1 Adult hypertrophic pyloric stenosis; D72.829 Elevated white blood cell count, unspecified; E03.9 Hypothyroidism, unspecified; E11.9 Type 2 diabetes mellitus without complications; E78.5 Hyperlipidemia, unspecified; E87.6 Hypokalemia; F03.90 Unspecified dementia, unspecified severity, without behavioral disturbance, psychotic disturbance, mood disturbance, and anxiety; F32.A Depression, unspecified; F41.9 Anxiety disorder, unspecified; I10 Essential (primary) hypertension; I25.10 Atherosclerotic heart disease of native coronary artery without angina pectoris; I48.91 Unspecified atrial fibrillation; K21.00 Gastro-esophageal reflux disease with esophagitis, without bleeding; K29.70 Gastritis, unspecified, without bleeding; K44.9 Diaphragmatic hernia without obstruction or gangrene; M19.90 Unspecified osteoarthritis, unspecified site; M41.9 Scoliosis, unspecified; Z20.822 Contact with and (suspected) exposure to COVID-19; Z79.01 Long term (current) use of anticoagulants; Z79.82 Long term (current) use of aspirin; Z79.890 Hormone replacement therapy; Z79.899 Other long term (current) drug therapy; Z82.49 Family history of ischemic heart disease and other diseases of the circulatory system; Z85.828 Personal history of other malignant neoplasm of skin; Z86.73 Personal history of transient ischemic attack (TIA), and cerebral infarction without residual deficits; Z87.11 Personal history of peptic ulcer disease; Z90.710 Acquired absence of both cervix and uterus
CPT/HCPCS: 36415; 43239; 71046; 74176; 80048; 80053; 81003; 82271; 83605; 83690; 83735; 84145; 84484; 85025; 85027; 85610; 85730; 87040; 87635; 88305; 93005; 96361; 96374; 96375; 99285

== ENCOUNTER 2021-05-04 15:10 | Inpatient (IN) | payer MEDICARE, BC, OTHER ==
[2021-05-04] MEDS ORDERED: SODIUM CHLORIDE 0.9% 500 ML 500 ML IV STA (15:37)
[2021-05-04] MEDS ORDERED: SODIUM CHLORIDE 0.9% 1,000 ML IV STA (15:37)
--- NOTE | 2021-05-04 15:56 | ED ---
Recheck HPI - General Chief Complaint: Recheck/Abnormal Lab/Rx Stated Complaint: failure to thrive Time Seen by Provider: 05/04/21 15:23 Source: patient, RN notes reviewed Mode of arrival: EMS Limitations: no limitations - History of Present Illness Initial Comments: 86-year-old female with a history of multiple medical issues who also has esophageal stricture.. Currently she is a well she's had about 10 pound weight loss last 2 weeks. She is not able to eat food and apparently vomits after trying to but is able to get a little bit of fluid down. She does have a scheduled pyloric dilatation in early May. She does complain of severe weakness no overt chest pain no overt fevers chills or sweats. - Related Data Home Medications Medication Instructions Recorded Confirmed Cholecalciferol [Vitamin D3 (25 25 mcg PO DAILY@79910/02/13 05/04/21 Mcg = 1000 Iu)] Aspirin EC [Ecotrin Low Dose] 81 mg PO DAILY@79912/23/15 05/04/21 rOPINIRole HCL [Requip] 3 mg PO HS@209912/23/15 05/04/21 timoloL maleate [Timolol Maleate] 1 drop BOTH EYES DAILY@79912/23/15 05/04/21 Donepezil HCl [Aricept] 5 mg PO HS@209910/15/17 05/04/21 Ferrous Sulfate [Iron (65 MG 325 mg PO DAILY@79912/25/17 05/04/21 Elemental)] Latanoprost Ophth [Xalatan 0.005%] 1 drop BOTH EYES HS@209912/25/17 05/04/21 Potassium Chloride ER [K-Dur 10] 10 meq PO DAILY@169912/25/17 05/04/21 lisinopriL [Prinivil] 5 mg PO DAILY@79912/30/17 05/04/21 Loperamide HCl [Imodium A-D] 2 - 4 mg PO QID PRN 02/14/21 05/04/21 Menthol [Biofreeze] 1 applic TOPICAL BID PRN 02/14/21 05/04/21 Rivaroxaban [Xarelto] 10 mg PO DAILY@79902/14/21 05/04/21 Rosuvastatin Calcium [Crestor] 5 mg PO HS@209902/14/21 05/04/21 guaiFENesin [guaiFENesin Oral 100 mg PO Q4H PRN 02/14/21 05/04/21 Solution] Ensure Clear 237 ml PO TID@0800,1200,1700 03/08/21 05/04/21 Levothyroxine Sodium [Synthroid] 25 mcg PO DAILY@0800 03/08/21 05/04/21 Magnesium Hydroxide [Milk of 7,200 mg PO Q48H PRN 03/08/21 05/04/21 Magnesia Concentrate] Mirtazapine [Remeron] 30 mg PO HS@209903/08/21 05/04/21 Na Phos,M-B/Na Phos,Di-Ba [Fleet 133 ml RECTAL DAILY PRN 03/08/21 05/04/21 Adult] Sennosides [Senna] 17.2 mg PO HS@209903/08/21 05/04/21 bisacodyL [Dulcolax] 10 mg RECTAL DAILY PRN 03/08/21 05/04/21 Pantoprazole [Protonix] 40 mg PO BID@0800,1700 05/04/21 05/04/21 Previous Rx's Medication Instructions Recorded Acetaminophen Tab [Tylenol] 650 mg PO Q6HR PRN tab 03/10/21 HYDROcodone/APAP 7.5-325MG [[place] 1 tab PO Q4H PRN #4 tab 03/10/21 7.5-325] Allergies Allergy/AdvReac Type Severity Reaction Status Date / Time No Known Allergies Allergy Verified 03/08/21 07:29 Review of Systems ROS Statement: Those systems with pertinent positive or pertinent negative responses have been documented in the HPI. ROS Other: All systems not noted in ROS Statement are negative. Past Medical History Past Medical History: Cancer, CVA/TIA, Diabetes Mellitus, Eye Disorder, GERD/Reflux, Hyperlipidemia, Hypertension, Osteoarthritis (OA), Thyroid Disorder Additional Past Medical History / Comment(s): HX: DM, NO RX SINCE WGT LOSS. SCOLIOSIS, BACK PAIN. SKIN CA, MULT. CVA, SL generalized weakness residual, TIA 04/2013 (pt/francisco j think she has a couple). Irregular heart beat OCC, Bradycardia at times, MINOR HEART MURMUR. GLAUCOMA. LT HIP FX 10/2017, HAS IRRITATING HARDWARE NOW. History of Any Multi-Drug Resistant Organisms: None Reported Past Surgical History: Hysterectomy Additional Past Surgical History / Comment(s): Colonoscopies w/ polypectomy- benign. MAIRA CATARACTS. Epidural INJ Lumbar Spine, LAST 10/07/17. 10/22/17 ORIF LT HIP. Past Anesthesia/Blood Transfusion Reactions: No Reported Reaction Past Psychological History: Anxiety, Depression Smoking Status: Never smoker Past Alcohol Use History: None Reported Past Drug Use History: None Reported - Past Family History Son(s) Family Medical History: Deep Vein Thrombosis (DVT) Father Family Medical History: Coronary Artery Disease (CAD), Myocardial Infarction ([place]) Additional Family Medical History / Comment(s): Father of [place]-pt unsure what age,. Mother Family Medical History: CVA/TIA General Exam - General Exam Comments Initial Comments: Is a well-developed asthenic appearing female who is awake alert oriented 3 Limitations: no limitations General appearance: alert, lethargic Head exam: Present: atraumatic, normocephalic, normal inspection Eye exam: Present: normal appearance, PERRL, EOMI. Absent: scleral icterus, conjunctival injection, periorbital swelling ENT exam: Present: mucous membranes dry Neck exam: Present: normal inspection. Absent: tenderness, meningismus, lymph adenopathy Respiratory exam: Present: normal lung sounds bilaterally. Absent: respiratory distress, wheezes, rales, rhonchi, stridor Cardiovascular Exam: Present: regular rate, normal rhythm, normal heart sounds. Absent: systolic murmur, diastolic murmur, rubs, gallop, clicks GI/Abdominal exam: Present: soft, normal bowel sounds. Absent: distended, tenderness, guarding, rebound, rigid Extremities exam: Present: normal inspection, full ROM, normal capillary refill. Absent: tenderness, pedal edema, joint swelling, calf tenderness Back exam: Present: normal inspection Neurological exam: Present: alert, oriented X3, CN II-XII intact Psychiatric exam: Present: normal affect, normal mood Skin exam: Present: warm, dry, intact, normal color. Absent: rash Course Vital Signs 05/04/21 15:14 Temperature 97.5 F L Pulse Rate 88 Respiratory 18 Rate Blood Pressure 113/66 O2 Sat by Pulse 97 Oximetry Medical Decision Making - Medical Decision Making I did discuss the patient's care with Dr. Leiva. She'll be admitted for IV hydration and evaluation surgical consultation - Lab Data Result diagrams: 05/04/21 15:39 05/04/21 15:39 Lab Results 05/04/21 05/04/21 05/04/21 Range/Units 15:39 15:39 15:39 WBC 5.2 (3.8-10.6) k/uL RBC 3.84 (3.80-5.40) m/uL Hgb 12.5 (11.4-16.0) gm/dL Hct 38.5 (34.0-46.0) % MCV 100.3 H (80.0-100.0) fL MCH 32.6 (25.0-35.0) pg MCHC 32.5 (31.0-37.0) g/dL RDW 13.7 (11.5-15.5) % Plt Count 251 (150-450) k/uL MPV 8.1 Neutrophils % 54 % Lymphocytes % 35 % Monocytes % 6 % Eosinophils % 2 % Basophils % 1 % Neutrophils # 2.8 (1.3-7.7) k/uL Lymphocytes # 1.8 (1.0-4.8) k/uL Monocytes # 0.3 (0-1.0) k/uL Eosinophils # 0.1 (0-0.7) k/uL Basophils # 0.0 (0-0.2) k/uL Sodium 139 (137-145) mmol/L Potassium 4.1 (3.5-5.1) mmol/L Chloride 105 (98-107) mmol/L Carbon Dioxide 27 (22-30) mmol/L Anion Gap 7 mmol/L BUN 10 (7-17) mg/dL Creatinine 0.66 (0.52-1.04) mg/dL Est GFR (CKD-EPI)AfAm >90 (>60 ml/min/1.73 sqM) Est GFR (CKD-EPI)NonAf 80 (>60 ml/min/1.73 sqM) Glucose 138 H (74-99) mg/dL Calcium 9.6 (8.4-10.2) mg/dL Magnesium 1.9 (1.6-2.3) mg/dL Total Bilirubin 0.5 (0.2-1.3) mg/dL AST 23 (14-36) U/L ALT 9 (4-34) U/L Alkaline Phosphatase 55 (38-126) U/L Creatine Kinase 39 (30-135) U/L Troponin I 0.024 (0.000-0.034) ng/mL Total Protein 6.0 L (6.3-8.2) g/dL Albumin 3.3 L (3.5-5.0) g/dL - Radiology Data Radiology results: image reviewed (Image reviewed no definitive abnormalities) Disposition Clinical Impression: Failure to thrive syndrome, adult, Dehydration, History of esophageal stricture, Vomiting, Weakness Disposition: ADMITTED IP TO THIS [facility] Condition: Fair Referrals: Melissa Leiva MD [Primary Care Provider] - 1-2 days
[2021-05-04 15:59] LABS: Basophils % (A) 1 %; Eosinophils # (A) 0.1 k/uL (0-0.7); Eosinophils % (A) 2 %; HCT 38.5 % (34.0-46.0); HGB 12.5 gm/dL (11.4-16.0); Lymphocytes # (A) 1.8 k/uL (1.0-4.8); Lymphocytes % (A) 35 %; MCH 32.6 pg (25.0-35.0); MCHC 32.5 g/dL (31.0-37.0); MCV 100.3 fL (80.0-100.0); Mean Platelet Volume 8.1; Monocytes # (A) 0.3 k/uL (0-1.0); Monocytes % (A) 6 %; Neutrophils # (A) 2.8 k/uL (1.3-7.7); Neutrophils % (A) 54 %; Platelet Count 251 k/uL (150-450); RBC 3.84 m/uL (3.80-5.40); RDW 13.7 % (11.5-15.5); WBC 5.2 k/uL (3.8-10.6)
[2021-05-04 16:14] LABS: ALT 9 U/L (4-34); AST 23 U/L (14-36); African American GFR (CKD) >90 (>60 ml/min/1.73 sqM); Albumin 3.3 g/dL (3.5-5.0); Alkaline Phosphatase 55 U/L (38-126); Anion Gap 7 mmol/L; Blood Urea Nitrogen 10 mg/dL (7-17); Calcium 9.6 mg/dL (8.4-10.2); Carbon Dioxide 27 mmol/L (22-30); Chloride 105 mmol/L (98-107); Creatine Kinase 39 U/L (30-135); Glucose 138 mg/dL (74-99); Magnesium 1.9 mg/dL (1.6-2.3); Non-African American GFR(CKD) 80 (>60 ml/min/1.73 sqM); Potassium 4.1 mmol/L (3.5-5.1); Sodium 139 mmol/L (137-145); Total Bilirubin 0.5 mg/dL (0.2-1.3)
[2021-05-04] MEDS ORDERED: NALOXONE 0.4 MG/ML 1 ML VIAL IV PRN (17:27)
--- NOTE | 2021-05-04 17:43 | XR ---
EXAMINATION: XR chest 2V DATE AND TIME: 05/04/2021 4:57 PM CLINICAL INDICATION: Weakness TECHNIQUE: AP and lateral views COMPARISON: 03/08/2021 FINDINGS: The lungs are clear. The pleural spaces are negative. The cardiac silhouette is not enlarged. The remainder of the mediastinal silhouette is unremarkable. The skeletal structures and soft tissues are negative for acute findings. IMPRESSION: NO ACUTE PROCESS.
[2021-05-04 17:55] LABS: Appearance,Urine Clear (Clear); Bilirubin,Urine Negative (Negative); Blood,Urine Negative (Negative); Color,Urine Yellow; Glucose,Urine (UA) Negative (Negative); Ketones,Urine Negative (Negative); Leukocyte Esterase,Urine Negative (Negative); Nitrite,Urine Negative (Negative); PH, Urine 5.5 (5.0-8.0); Protein,Urine Trace (Negative); Specific Gravity,Urine 1.019 (1.001-1.035); Urobilinogen,Urine <2.0 mg/dL (<2.0)
[2021-05-04] MEDS: SODIUM CHLORIDE 0.9% 1,000 ML IV SCH (19:10)
[2021-05-04] MEDS: PANTOPRAZOLE 40 MG/10 ML VIAL IVP SCH (21:20)
[2021-05-04] MEDS: LATANOPROST 0.005% OPHTH DROPS 2.5 ML BTL BOTH EYES SCH (21:20)
[2021-05-04] MEDS: ENOXAPARIN 30 MG/0.3 ML SYRINGE SQ SCH (21:20)
[2021-05-05] MEDS: SODIUM CHLORIDE 0.9% 1,000 ML IV SCH ×4 (02:39→23:30)
[2021-05-05] MEDS: TIMOLOL 0.25% OPHTH DROPS 5 ML BTL BOTH EYES SCH (07:38)
[2021-05-05] MEDS: PANTOPRAZOLE 40 MG/10 ML VIAL IVP SCH ×3 (07:38→23:28)
[2021-05-05] MEDS: ENOXAPARIN 30 MG/0.3 ML SYRINGE SQ SCH ×2 (07:38→21:43)
--- NOTE | 2021-05-05 10:12 | P.HPIM ---
History of Present Illness H&P Date: 05/05/21 Chief Complaint: Esophageal stricture failure to thrive This is a 86-year-old female patient who was sent to ER from [facility] facility with concerns of dehydration and failure to thrive. Patient has a known past medical history of esophageal strictures. Patient is scheduled pain for pyloric dilation and early May but over the past 2 weeks patient has lost 10 pounds and had increasing vomiting and unable to keep fluids down. Additional medical history includes CVA, diabetes mellitus, high disorder, GERD, hyperlipidemia, hypertension, thyroid disorder, dementia, anxiety and depression. Chest x-ray was completed showing no acute process. This time patient will be admitted patient initiated on IV hydration and surgical services have been consulted. Patient is currently sitting comfortably in chair. At this time patient denies chest pain or shortness breath. Patient denies nausea vomiting or diarrhea. Patient denies any urinary burning or frequency Review of Systems Please refer to HPI otherwise unremarkable Past Medical History Past Medical History: Cancer, CVA/TIA, Diabetes Mellitus, Eye Disorder, GERD/Reflux, Hyperlipidemia, Hypertension, Osteoarthritis (OA), Thyroid Disorder Additional Past Medical History / Comment(s): HX: DM, NO RX SINCE WGT LOSS. SCOLIOSIS, BACK PAIN. SKIN CA, MULT. CVA, SL generalized weakness residual, TIA 04/2013 (pt/francisco j think she has a couple). Irregular heart beat OCC, Bradycardia at times, MINOR HEART MURMUR. GLAUCOMA. LT HIP FX 10/2017, HAS IRRITATING HARDWARE NOW. History of Any Multi-Drug Resistant Organisms: None Reported Past Surgical History: Hysterectomy Additional Past Surgical History / Comment(s): Colonoscopies w/ polypectomy- benign. MAIRA CATARACTS. Epidural INJ Lumbar Spine, LAST 10/07/17. 10/22/17 ORIF LT HIP. Past Anesthesia/Blood Transfusion Reactions: No Reported Reaction Past Psychological History: Anxiety, Depression Additional Psychological History / Comment(s): Pt from [facility] Smoking Status: Never smoker Past Alcohol Use History: None Reported Past Drug Use History: None Reported - Past Family History Son(s) Family Medical History: Deep Vein Thrombosis (DVT) Father Family Medical History: Coronary Artery Disease (CAD), Myocardial Infarction ([place]) Additional Family Medical History / Comment(s): Father of [place]-pt unsure what age,. Mother Family Medical History: CVA/TIA Medications and Allergies Home Medications Medication Instructions Recorded Confirmed Type Cholecalciferol [Vitamin D3 (25 25 mcg PO DAILY@79910/02/13 05/04/21 History Mcg = 1000 Iu)] Aspirin EC [Ecotrin Low Dose] 81 mg PO DAILY@0812/23/15 05/04/21 History rOPINIRole HCL [Requip] 3 mg PO HS@209912/23/15 05/04/21 History timoloL maleate [Timolol Maleate] 1 drop BOTH EYES DAILY@79912/23/15 05/04/21 History Donepezil HCl [Aricept] 5 mg PO HS@209910/15/17 05/04/21 History Ferrous Sulfate [Iron (65 MG 325 mg PO DAILY@79912/25/17 05/04/21 History Elemental)] Latanoprost Ophth [Xalatan 0.005%] 1 drop BOTH EYES HS@209912/25/17 05/04/21 History Potassium Chloride ER [K-Dur 10] 10 meq PO DAILY@169912/25/17 05/04/21 History lisinopriL [Prinivil] 5 mg PO DAILY@79912/30/17 05/04/21 History Loperamide HCl [Imodium A-D] 2 - 4 mg PO QID PRN 02/14/21 05/04/21 History Menthol [Biofreeze] 1 applic TOPICAL BID PRN 02/14/21 05/04/21 History Rivaroxaban [Xarelto] 10 mg PO DAILY@79902/14/21 05/04/21 History Rosuvastatin Calcium [Crestor] 5 mg PO HS@209902/14/21 05/04/21 History guaiFENesin [guaiFENesin Oral 100 mg PO Q4H PRN 02/14/21 05/04/21 History Solution] Ensure Clear 237 ml PO TID@0800,1200,1700 03/08/21 05/04/21 History Levothyroxine Sodium [Synthroid] 25 mcg PO DAILY@0800 03/08/21 05/04/21 History Magnesium Hydroxide [Milk of 7,200 mg PO Q48H PRN 03/08/21 05/04/21 History Magnesia Concentrate] Mirtazapine [Remeron] 30 mg PO HS@2100 03/08/21 05/04/21 History Na Phos,M-B/Na Phos,Di-Ba [Fleet 133 ml RECTAL DAILY PRN 03/08/21 05/04/21 History Adult] Sennosides [Senna] 17.2 mg PO HS@2100 03/08/21 05/04/21 History bisacodyL [Dulcolax] 10 mg RECTAL DAILY PRN 03/08/21 05/04/21 History Acetaminophen Tab [Tylenol] 650 mg PO Q6HR PRN tab 03/10/21 05/04/21 Rx HYDROcodone/APAP 7.5-325MG [[place] 1 tab PO Q4H PRN #4 tab 03/10/21 05/04/21 Rx 7.5-325] Pantoprazole [Protonix] 40 mg PO BID@0800,1700 05/04/21 05/04/21 History Allergies Allergy/AdvReac Type Severity Reaction Status Date / Time No Known Allergies Allergy Verified 03/08/21 07:29 Physical Exam Vitals: Vital Signs Temp Pulse Pulse Resp BP BP Pulse Ox 05/05/21 08:00 98.0 F 71 17 133/70 100 05/05/21 01:18 97.9 F 62 14 167/78 100 05/04/21 19:26 98.3 F 77 14 126/72 100 05/04/21 19:10 95 18 157/75 99 05/04/21 15:14 97.5 F L 88 18 113/66 97 Intake and Output 05/04/21 05/05/21 05/05/21 22:59 06:59 14:59 Intake Total 1560 Balance 1560 Intake: Intake, IV Titration 1560 Amount Sodium Chloride 0.9% 1, 1560 000 ml @ 130 mls/hr IV . Q7H42M [facility] Rx#:[id number] Other: Weight 48.081 kg Head normocephalic Neck supple Lungs clear to auscultation bilaterally no wheezing or crackles Heart regular rate and rhythm S1-S2, no rub or gallop Abdomen is soft nontender nondistended positive bowel sounds no hepato splenomegaly Extremities no edema Neuro alert and orientated to 3. Intermittent episodes of confusion Results CBC & Chem 7: 05/04/21 15:39 05/04/21 15:39 Labs: Abnormal Lab Results - Last 24 Hours (Table) 05/04/21 05/04/21 05/04/21 Range/Units 15:39 15:39 17:41 MCV 100.3 H (80.0-100.0) fL Glucose 138 H (74-99) mg/dL Total Protein 6.0 L (6.3-8.2) g/dL Albumin 3.3 L (3.5-5.0) g/dL Urine Protein Trace H (Negative) Thrombosis Risk Factor Assmnt - Choose All That Apply Each Risk Factor Represents 3 Points: Age 75 years or older, Family history of DVT/PE Thrombosis Risk Factor Assessment Total Risk Factor Score: 6 Thrombosis Risk Factor Assessment Level: High Risk Assessment and Plan Assessment: 1. Poor oral intake with failure to thrive secondary to esophageal stricture 2. Patient recently underwent EGD. EGD revealing severe esophagitis with erosions and states involving the entirely mid and distal stoppages consistent with LAD grade C reflux esophagitis. Patient did have follow-up scheduled in early May 3. History of proximal atrial fibrillation. xarelto on hold. Maintained on Lovenox 4. History of CVA 5. History of type 2 diabetes mellitus 6. Hyperlipidemia. Maintained on statins 7. History of essential hypertension 8. Hypothyroidism 9. History of dementia DVT prophylaxis Lovenox. GI prophylaxis Protonix Surgical services have been consulted Continue IV fluids Time with Patient: Greater than 30 (Greater than 60% of the total time spent in counseling and coordination of care)
--- NOTE | 2021-05-05 11:02 | P.GSCN ---
History of Present Illness Consult date: 05/05/21 History of present illness: CHIEF COMPLAINT: Vomiting HISTORY OF PRESENT ILLNESS: This is a 86-year-old female with a history of esophageal stricture. She was scheduled for pyloric dilation early in May. Over the past 2 weeks patient has had a 10 pound weight loss and has been vomiting. There are concerns for failure to thrive and dehydration. She is unable to keep solids and is able to keep down some liquids. She is on Xarelto for history of A. fib and CVA. There were concerns for dehydration. She's been placed on IV fluids. Surgical consult requested regarding esophageal stricture. Patient had EGD in March [address] Campbell had shown severe esophagitis, erosive exudates, pyloric stenosis gastritis and hiatal hernia. Patient denies any abdominal pain. She has been having bowel movements. Patient denies any prior history of esophageal dilation. PAST MEDICAL HISTORY: CVA, diabetes mellitus, hyperlipidemia, hypertension, hypothyroidism, TIA, CVA PAST SURGICAL HISTORY: Hysterectomy MEDICATIONS: See list. ALLERGIES: See list. SOCIAL HISTORY: No illicit drug use. REVIEW OF SYSTEMS: CONSTITUTIONAL: Denies fever or chills. HEENT: Denies blurred vision, vision changes, or eye pain. Denies hemoptysis CARDIOVASCULAR: Denies chest pain or pressure. RESPIRATORY: No shortness of breath. GASTROINTESTINAL: See HPI for pertinent findings HEMATOLOGIC: Denies bleeding disorders. GENITOURINARY: Denies any blood in urine or increased urinary frequency. SKIN: Denies pruitis. Denies rash. PHYSICAL EXAM: VITAL SIGNS: Reviewed GENERAL: Well-developed in no acute distress. HEENT: No sclera icterus. Extraocular movements grossly intact. Moist buccal mucosa. Head is atraumatic, normocephalic. No nasal drainage. ABDOMEN: Soft. Nondistended. Nontender NEUROLOGIC: Alert and oriented. Cranial nerves II through XII grossly intact. LABORATORY DATA: WBC 5.2 hemoglobin 12.5 platelets 251 sodium 139 potassium 4.1 BUN 10 creatinine 0.66 Glucose 138 Magnesium 1.9 LFTs normal Urinalysis negative COVID-19 not detected IMAGING: Chest x-ray no acute process ASSESSMENT: 1. Vomiting with poor oral intake and 10 pound weight loss 2. Pyloric stenosis 3. EGD in March [address] Torres had shown severe esophagitis, erosive exudates, pyloric stenosis gastritis and hiatal hernia. 4. History of A. fib anticoagulated with Xarelto PLAN: -Esophagram ordered -Further recommendations forthcoming depending esophagram results -Agree with holding Xarelto -Continue supportive care -Continue clear liquid diet Thank you for this consultation Physician Machine Hamper Maker note has been reviewed by physician. Signing provider agrees with the documented findings, assessment, and plan of care. Past Medical History Past Medical History: Cancer, CVA/TIA, Diabetes Mellitus, Eye Disorder, GERD/Reflux, Hyperlipidemia, Hypertension, Osteoarthritis (OA), Thyroid Disorder Additional Past Medical History / Comment(s): HX: DM, NO RX SINCE WGT LOSS. SCOLIOSIS, BACK PAIN. SKIN CA, MULT. CVA, SL generalized weakness residual, TIA 04/2013 (pt/francisco j think she has a couple). Irregular heart beat OCC, Bradycardia at times, MINOR HEART MURMUR. GLAUCOMA. LT HIP FX 10/2017, HAS IRRITATING HARDWARE NOW. History of Any Multi-Drug Resistant Organisms: None Reported Past Surgical History: Hysterectomy Additional Past Surgical History / Comment(s): Colonoscopies w/ polypectomy- benign. MAIRA CATARACTS. Epidural INJ Lumbar Spine, LAST 10/07/17. 10/22/17 ORIF LT HIP. Past Anesthesia/Blood Transfusion Reactions: No Reported Reaction Past Psychological History: Anxiety, Depression Additional Psychological History / Comment(s): Pt from [facility] Smoking Status: Never smoker Past Alcohol Use History: None Reported Past Drug Use History: None Reported - Past Family History Son(s) Family Medical History: Deep Vein Thrombosis (DVT) Father Family Medical History: Coronary Artery Disease (CAD), Myocardial Infarction ([place]) Additional Family Medical History / Comment(s): Father of [place]-pt unsure what age,. Mother Family Medical History: CVA/TIA Medications and Allergies Home Medications Medication Instructions Recorded Confirmed Type Cholecalciferol [Vitamin D3 (25 25 mcg PO DAILY@79910/02/13 05/04/21 History Mcg = 1000 Iu)] Aspirin EC [Ecotrin Low Dose] 81 mg PO DAILY@79912/23/15 05/04/21 History rOPINIRole HCL [Requip] 3 mg PO HS@2100 12/23/15 05/04/21 History timoloL maleate [Timolol Maleate] 1 drop BOTH EYES DAILY@79912/23/15 05/04/21 History Donepezil HCl [Aricept] 5 mg PO HS@209910/15/17 05/04/21 History Ferrous Sulfate [Iron (65 MG 325 mg PO DAILY@79912/25/17 05/04/21 History Elemental)] Latanoprost Ophth [Xalatan 0.005%] 1 drop BOTH EYES HS@209912/25/17 05/04/21 History Potassium Chloride ER [K-Dur 10] 10 meq PO DAILY@169912/25/17 05/04/21 History lisinopriL [Prinivil] 5 mg PO DAILY@79912/30/17 05/04/21 History Loperamide HCl [Imodium A-D] 2 - 4 mg PO QID PRN 02/14/21 05/04/21 History Menthol [Biofreeze] 1 applic TOPICAL BID PRN 02/14/21 05/04/21 History Rivaroxaban [Xarelto] 10 mg PO DAILY@79902/14/21 05/04/21 History Rosuvastatin Calcium [Crestor] 5 mg PO HS@209902/14/21 05/04/21 History guaiFENesin [guaiFENesin Oral 100 mg PO Q4H PRN 02/14/21 05/04/21 History Solution] Ensure Clear 237 ml PO TID@0800,1200,1700 03/08/21 05/04/21 History Levothyroxine Sodium [Synthroid] 25 mcg PO DAILY@0803/08/21 05/04/21 History Magnesium Hydroxide [Milk of 7,200 mg PO Q48H PRN 03/08/21 05/04/21 History Magnesia Concentrate] Mirtazapine [Remeron] 30 mg PO HS@209903/08/21 05/04/21 History Na Phos,M-B/Na Phos,Di-Ba [Fleet 133 ml RECTAL DAILY PRN 03/08/21 05/04/21 History Adult] Sennosides [Senna] 17.2 mg PO HS@209903/08/21 05/04/21 History bisacodyL [Dulcolax] 10 mg RECTAL DAILY PRN 03/08/21 05/04/21 History Acetaminophen Tab [Tylenol] 650 mg PO Q6HR PRN tab 03/10/21 05/04/21 Rx HYDROcodone/APAP 7.5-325MG [[place] 1 tab PO Q4H PRN #4 tab 03/10/21 05/04/21 Rx 7.5-325] Pantoprazole [Protonix] 40 mg PO BID@0800,1700 05/04/21 05/04/21 History Allergies Allergy/AdvReac Type Severity Reaction Status Date / Time No Known Allergies Allergy Verified 03/08/21 07:29 Surgical - Exam Vital Signs Temp Pulse Resp BP Pulse Ox 97.5 F L 88 18 113/66 97 05/04/21 15:14 05/04/21 15:14 05/04/21 15:14 05/04/21 15:14 05/04/21 15:14 Results - Labs 05/04/21 15:39 05/04/21 15:39 Abnormal Lab Results - Last 24 Hours (Table) 05/04/21 05/04/21 05/04/21 Range/Units 15:39 15:39 17:41 MCV 100.3 H (80.0-100.0) fL Glucose 138 H (74-99) mg/dL Total Protein 6.0 L (6.3-8.2) g/dL Albumin 3.3 L (3.5-5.0) g/dL Urine Protein Trace H (Negative) Diabetes panel 05/04/21 Range/Units 15:39 Sodium 139 (137-145) mmol/L Potassium 4.1 (3.5-5.1) mmol/L Chloride 105 (98-107) mmol/L Carbon Dioxide 27 (22-30) mmol/L BUN 10 (7-17) mg/dL Creatinine 0.66 (0.52-1.04) mg/dL Glucose 138 H (74-99) mg/dL Calcium 9.6 (8.4-10.2) mg/dL AST 23 (14-36) U/L ALT 9 (4-34) U/L Alkaline Phosphatase 55 (38-126) U/L Total Protein 6.0 L (6.3-8.2) g/dL Albumin 3.3 L (3.5-5.0) g/dL Calcium panel 05/04/21 Range/Units 15:39 Calcium 9.6 (8.4-10.2) mg/dL Albumin 3.3 L (3.5-5.0) g/dL Pituitary panel 05/04/21 Range/Units 15:39 Sodium 139 (137-145) mmol/L Potassium 4.1 (3.5-5.1) mmol/L Chloride 105 (98-107) mmol/L Carbon Dioxide 27 (22-30) mmol/L BUN 10 (7-17) mg/dL Creatinine 0.66 (0.52-1.04) mg/dL Glucose 138 H (74-99) mg/dL Calcium 9.6 (8.4-10.2) mg/dL Adrenal panel 05/04/21 Range/Units 15:39 Sodium 139 (137-145) mmol/L Potassium 4.1 (3.5-5.1) mmol/L Chloride 105 (98-107) mmol/L Carbon Dioxide 27 (22-30) mmol/L BUN 10 (7-17) mg/dL Creatinine 0.66 (0.52-1.04) mg/dL Glucose 138 H (74-99) mg/dL Calcium 9.6 (8.4-10.2) mg/dL Total Bilirubin 0.5 (0.2-1.3) mg/dL AST 23 (14-36) U/L ALT 9 (4-34) U/L Alkaline Phosphatase 55 (38-126) U/L Total Protein 6.0 L (6.3-8.2) g/dL Albumin 3.3 L (3.5-5.0) g/dL
--- NOTE | 2021-05-05 15:56 | FL ---
EXAMINATION TYPE: FL UGI w esophagus DATE OF EXAM: 05/05/2021 COMPARISON: None HISTORY: Dysphasia pyloric stenosis TECHNIQUE: Single contrast technique is utilized. Radiographs real-time observation and overhead fluo roscopy is utilized. FINDINGS: Fluoroscopy time: 1 minute 54 seconds. Images: 68 Esophagus stylish normal caliber and has normal contour to the gastroesophageal junction. No intralum inal or extramural defects are evident. Secondary contractions were observed there is incomplete stri pping of the esophageal bolus in the horizontal drinking position. There may be some debris within the stomach. Gastric fold hypertrophy within the fundus may be presen t. There is marked hesitancy of contrast emptying the stomach through the pyloric channel. Limited co ntrast within the duodenum. Ligament of [place] appears to be in the normal position. IMPRESSION: 1. Marked chest and CT of contrast exiting the stomach. Pyloric stenosis is likely present. The duod enum has limited contrast but appears to be normal position. 2. Presbyesophagus. 3. Correlate for gastritis at the fundus of the stomach
[2021-05-05] MEDS: LATANOPROST 0.005% OPHTH DROPS 2.5 ML BTL BOTH EYES SCH (21:44)
[2021-05-06 03:23] LABS: Basophils % (A) 0 %; Eosinophils # (A) 0.1 k/uL (0-0.7); Eosinophils % (A) 1 %; HGB 12.9 gm/dL (11.4-16.0); Lymphocytes # (A) 1.2 k/uL (1.0-4.8); Lymphocytes % (A) 10 %; MCH 32.3 pg (25.0-35.0); MCHC 32.2 g/dL (31.0-37.0); MCV 100.2 fL (80.0-100.0); Mean Platelet Volume 8.4; Monocytes # (A) 0.5 k/uL (0-1.0); Monocytes % (A) 4 %; Neutrophils # (A) 9.5 k/uL (1.3-7.7); Neutrophils % (A) 83 %; Platelet Count 228 k/uL (150-450); RBC 3.99 m/uL (3.80-5.40); RDW 13.5 % (11.5-15.5); WBC 11.4 k/uL (3.8-10.6)
[2021-05-06] MEDS: SODIUM CHLORIDE 0.9% 1,000 ML IV SCH (08:48)
[2021-05-06] MEDS: TIMOLOL 0.25% OPHTH DROPS 5 ML BTL BOTH EYES SCH (08:48)
[2021-05-06] MEDS: PANTOPRAZOLE 40 MG/10 ML VIAL IVP SCH ×2 (08:48→22:14)
[2021-05-06 09:05] LABS: Basophils # (A) 0.03 X 10*3/uL (0.00-0.10); Basophils % (A) 0.2 %; Eosinophils # (A) 0.06 X 10*3/uL (0.04-0.35); Eosinophils % (A) 0.5 %; HCT 39.3 % (37.2-46.3); HGB 12.3 g/dL (12.0-15.0); Immature Grans, Automated 0.4 %; Lymphocytes % (A) 12.7 %; MCH 31.8 pg (27.0-32.0); MCHC 31.3 g/dL (32.0-37.0); MCV 101.6 fL (80.0-97.0); Mean Platelet Volume 10.5 fL (9.5-12.2); Monocytes # (A) 0.63 X 10*3/uL (0.20-1.00); NRBC Per 100 WBC 0 /100 WBCS (0.0-0.0); Neutrophils # (A) 10.25 X 10*3/uL (1.80-7.70); Neutrophils % (A) 81.2 %; Platelet Count 192 X 10*3/uL (140-440); RBC 3.87 X 10*6/uL (4.10-5.20); RDW 13.5 % (11.5-14.5); WBC 12.62 X 10*3/uL (4.50-10.00)
[2021-05-06] MEDS: ENOXAPARIN 30 MG/0.3 ML SYRINGE SQ SCH (10:02)
--- NOTE | 2021-05-06 10:26 | P.GSCN ---
History of Present Illness Consult date: 05/06/21 History of present illness: 86 yo female in the hospital with ftt. Cannot eat due to an esophageal stricture. SHe apparently had some blood in her pure wick x2 . We were consulted. The patients history is limited but she denies hematuria. Her ua on admission was clear. There is no urological history Review of Systems ROS unobtainable: due to mental status Past Medical History Past Medical History: Cancer, CVA/TIA, Diabetes Mellitus, Eye Disorder, GERD/Reflux, Hyperlipidemia, Hypertension, Osteoarthritis (OA), Thyroid Disorder Additional Past Medical History / Comment(s): HX: DM, NO RX SINCE WGT LOSS. SCOLIOSIS, BACK PAIN. SKIN CA, MULT. CVA, SL generalized weakness residual, TIA 04/2013 (pt/francisco j think she has a couple). Irregular heart beat OCC, Bra dycardia at times, MINOR HEART MURMUR. GLAUCOMA. LT HIP FX 10/2017, HAS IRRITATING HARDWARE NOW. History of Any Multi-Drug Resistant Organisms: None Reported Past Surgical History: Hysterectomy Additional Past Surgical History / Comment(s): Colonoscopies w/ polypectomy- benign. MAIRA CATARACTS. Epidural INJ Lumbar Spine, LAST 10/07/17. 10/22/17 ORIF LT HIP. Past Anesthesia/Blood Transfusion Reactions: No Reported Reaction Past Psychological History: Anxiety, Depression Additional Psychological History / Comment(s): Pt from [facility] Smoking Status: Never smoker Past Alcohol Use History: None Reported Past Drug Use History: None Reported - Past Family History Son(s) Family Medical History: Deep Vein Thrombosis (DVT) Father Family Medical History: Coronary Artery Disease (CAD), Myocardial Infarction ([place]) Additional Family Medical History / Comment(s): Father of [place]-pt unsure what age,. Mother Family Medical History: CVA/TIA Medications and Allergies Home Medications Medication Instructions Recorded Confirmed Type Cholecalciferol [Vitamin D3 (25 25 mcg PO DAILY@79910/02/13 05/04/21 History Mcg = 1000 Iu)] Aspirin EC [Ecotrin Low Dose] 81 mg PO DAILY@79912/23/15 05/04/21 History rOPINIRole HCL [Requip] 3 mg PO HS@2100 12/23/15 05/04/21 History timoloL maleate [Timolol Maleate] 1 drop BOTH EYES DAILY@79916/05/04/21 History Donepezil HCl [Aricept] 5 mg PO HS@209910/15/17 05/04/21 History Ferrous Sulfate [Iron (65 MG 325 mg PO DAILY@79912/25/17 05/04/21 History Elemental)] Latanoprost Ophth [Xalatan 0.005%] 1 drop BOTH EYES HS@209912/25/17 05/04/21 History Potassium Chloride ER [K-Dur 10] 10 meq PO DAILY@169912/25/17 05/04/21 History lisinopriL [Prinivil] 5 mg PO DAILY@79912/30/17 05/04/21 History Loperamide HCl [Imodium A-D] 2 - 4 mg PO QID PRN 02/14/21 05/04/21 History Menthol [Biofreeze] 1 applic TOPICAL BID PRN 02/14/21 05/04/21 History Rivaroxaban [Xarelto] 10 mg PO DAILY@79902/14/21 05/04/21 History Rosuvastatin Calcium [Crestor] 5 mg PO HS@209902/14/21 05/04/21 History guaiFENesin [guaiFENesin Oral 100 mg PO Q4H PRN 02/14/21 05/04/21 History Solution] Ensure Clear 237 ml PO TID@0800,1200,1700 03/08/21 05/04/21 History Levothyroxine Sodium [Synthroid] 25 mcg PO DAILY@0800 03/08/21 05/04/21 History Magnesium Hydroxide [Milk of 7,200 mg PO Q48H PRN 03/08/21 05/04/21 History Magnesia Concentrate] Mirtazapine [Remeron] 30 mg PO HS@209903/08/21 05/04/21 History Na Phos,M-B/Na Phos,Di-Ba [Fleet 133 ml RECTAL DAILY PRN 03/08/21 05/04/21 History Adult] Sennosides [Senna] 17.2 mg PO HS@209903/08/21 05/04/21 History bisacodyL [Dulcolax] 10 mg RECTAL DAILY PRN 03/08/21 05/04/21 History Acetaminophen Tab [Tylenol] 650 mg PO Q6HR PRN tab 03/10/21 05/04/21 Rx HYDROcodone/APAP 7.5-325MG [[place] 1 tab PO Q4H PRN #4 tab 03/10/21 05/04/21 Rx 7.5-325] Pantoprazole [Protonix] 40 mg PO BID@0800,1700 05/04/21 05/04/21 History Allergies Allergy/AdvReac Type Severity Reaction Status Date / Time No Known Allergies Allergy Verified 03/08/21 07:29 Surgical - Exam Vital Signs Temp Pulse Resp BP Pulse Ox 97.5 F L 88 18 113/66 97 05/04/21 15:14 05/04/21 15:14 05/04/21 15:14 05/04/21 15:14 05/04/21 15:14 - General no pain, cachectic - Eyes PERRL - ENT no hearing loss - Neck no masses - Respiratory normal expansion, normal respiratory effort - Cardiovascular Rhythm: regular - Abdomen Abdomen: soft, non tender - Genitourinary no blood is seen on the vulva. bimanual doesnt identify mass nor is there blood in the vaginal vault normal external genitalia, normal perineum - Neurologic normal sensation Results - Labs 05/06/21 05:36 05/04/21 15:39 Abnormal Lab Results - Last 24 Hours (Table) 05/06/21 05/06/21 Range/Units 02:19 05:36 WBC 11.4 H 12.62 H (3.8-10.6) k/uL RBC 3.87 L (4.10-5.20) X 10*6/uL MCV 100.2 H 101.6 H (80.0-100.0) fL MCHC 31.3 L (32.0-37.0) g/dL Immature Gran # 0.05 H (0.00-0.04) X 10*3/uL Neutrophils # 9.5 H 10.25 H (1.3-7.7) k/uL Assessment and Plan Assessment: Impression: possible hematuria. Plan: cath ua to clarify the status of the urine since it was clear on admission and this was blood seen on the pure wick
[2021-05-06 10:46] LABS: African American GFR (CKD) 95.9 (60.0-200.0); Albumin 3.1 g/dL (3.8-4.9); Albumin/Globulin Ratio 1.31 (1.60-3.17); Anion Gap 16.9 mmol/L (10.00-18.00); BUN/Creat Ratio 6.34 Ratio (12.00-20.00); Blood Urea Nitrogen 3.8 mg/dL (9.0-27.0); Calcium 8.8 mg/dL (8.7-10.3); Globulin 2.4 g/dL (1.6-3.3); Non-African American GFR(CKD) 82.8 (60.0-200.0); Potassium 4.1 mmol/L (3.5-5.5); Total Bilirubin 0.3 mg/dL (0.30-1.20); Total Protein 5.4 g/dL (6.2-8.2)
[2021-05-06] MEDS ORDERED: SODIUM CHLORIDE 0.9% 1,000 ML IV STA (11:22)
--- NOTE | 2021-05-06 11:34 | P.PN ---
Subjective Progress Note Date: 05/06/21 Prerna Hyde, is a 86-year-old female patient who was sent to ER from [facility] with concerns of dehydration and failure to thrive. Patient has a known past medical history of esophageal strictures. Patient is scheduled pain for pyloric dilation and early May but over the past 2 weeks patient has lost 10 pounds and had increasing vomiting and unable to keep fluids down. Additional medical history includes CVA, diabetes mellitus, high disorder, GERD, hyperlipidemia, hypertension, thyroid disorder, dementia, anxiety and depression. Chest x-ray was completed showing no acute process. This time patient will be admitted patient initiated on IV hydration and surgical services have been consulted. Patient is currently sitting comfortably in chair. At this time patient denies chest pain or shortness breath. Patient denies nausea vomiting or diarrhea. Patient denies any urinary burning or frequency. On 05/06/2021 patient was seen and examined on the medical floor she is alert and oriented 3 in no apparent distress she is denying any pain or any symptoms at this time, her blood pressure is 144/60 pulse 65 respiration 18 temperature 97.6 and pulse ox 90% on room air. Throughout last night, I received multiple calls regarding this patient for hematuria, possible cardiac arrhythmia. Actually the nurse called in the A team at 1:30 AM due to concern about hematur ia, CBC was done, hemoglobin is stable, at this point I discontinued Lovenox and ordered SCD stockings for DVT prophylaxis, urology consultation was requested in that regard to hematuria. The nurse also had concern regarding possible cardiac arrhythmia at some point during the last night heart rate was up to 162 then was mostly in the 50s and 60s throughout the night, cardiology consultation was requested in that regard. At this time patient seems to be stable she is receiving IV fluid, I will decrease the dose to 75 mL per hour and give 1 dose of IV Lasix due to some fine crackles in her bases. Otherwise we are awaiting intervention by GI or surgery for esophageal stricture. At this time patient is not able to take any pills, I have added hydralazine IV on a when necessary basis for elevated blood pressure. Will resume oral medication after esophageal dilatation. Objective - Vital Signs Vital signs: Vital Signs Temp 97.9 F 05/06/21 01:19 Pulse 79 05/06/21 01:37 Resp 15 05/06/21 01:19 BP 172/78 05/06/21 01:37 Pulse Ox 94 L 05/06/21 01:37 Intake & Output 05/05/21 05/06/21 05/06/21 18:59 06:59 18:59 Intake Total 1560 Output Total 900 Balance 660 Weight 48.081 kg Intake: Intake, IV Titration 1560 Amount Sodium Chloride 0.9% 1, 1560 000 ml @ 130 mls/hr IV . Q7H42M [facility] Rx#:[id number] Output: Urine 900 Other: Voiding Method Bedside Commode Diaper # Voids 3 # Bowel Movements 0 - Exam In general patient is alert and oriented x 3 in no distress HEENT head normocephalic and atraumatic Neck is supple no JVD no goiter no lymphadenopathy no carotid bruit Chest examination reveals a few crackles in both lung bases no wheezing Cardiac exam reveals regular heart sounds S1 and S2 no gallops no murmurs Abdomen is soft nontender no organomegaly with normal bowel sounds Extremity exam reveals no edema no cyanosis or clubbing Neurological examination reveals no gross focal deficits - Labs CBC & Chem 7: 05/06/21 05:36 05/06/21 05:36 Labs: Abnormal Lab Results - Last 24 Hours (Table) 05/06/21 Range/Units 02:19 WBC 11.4 H (3.8-10.6) k/uL MCV 100.2 H (80.0-100.0) fL Neutrophils # 9.5 H (1.3-7.7) k/uL Assessment and Plan Assessment: 1. Poor oral intake with failure to thrive secondary to esophageal stricture 2. Patient recently underwent EGD. EGD revealing severe esophagitis with erosions and states involving the entirely mid and distal stoppages consistent with LAD grade C reflux esophagitis. Patient did have follow-up scheduled in early May 3. History of proximal atrial fibrillation. xarelto on hold. Maintained on Lovenox 4. History of CVA 5. History of type 2 diabetes mellitus 6. Hyperlipidemia. Maintained on statins 7. History of essential hypertension 8. Hypothyroidism 9. History of dementia 10. Hematuria per night clerk nurse, urology consultation requested 11. Episode of tachycardia with heart rate up to 162 with possible cardiac arrhythmia, cardiology consultation was requested DVT prophylaxis Lovenox. GI prophylaxis Protonix Surgical services have been consulted Continue IV fluids
[2021-05-06] MEDS ORDERED: FUROSEMIDE 10 MG/ML 2 ML VIAL IV ONE (11:45)
--- NOTE | 2021-05-06 13:50 | P.PN ---
Subjective Progress Note Date: 05/06/21 CHIEF COMPLAINT: Nausea and vomiting HISTORY OF PRESENT ILLNESS: The patient is a 86-year-old female with pyloric stenosis presented with nausea and vomiting. Upper GI obtained. She is tolerating liquids. No current nausea. ROS: No fevers or chills. No new chest pain. PHYSICAL EXAM: VITAL SIGNS: Reviewed CONSTITUTIONAL: Well developed and in no acute distress. EYES: Conjuctivae without sclera icterus. Extraocular movements grossly intact. HEAD, EARS, NOSE, THROAT: Moist buccal mucosa. Head is atraumatic, normocephalic. No nasal drainage. RESPIRATORY: Non-labored respirations and equal bilateral excursions. CARDIOVASCULAR: Palpable 2+ radial pulses. ABDOMEN: Nontender. Nondistended. MUSCULOSKELETAL: No gross deformity of the lower extremities noted. No clubbing. No cyanosis. SKIN: Good skin turgor. Well perfused. NEUROLOGIC: Cranial nerves II through XII grossly intact. No focal or lateralizing signs. PSYCH: Alert to person. CLINICAL LABS: Reviewed. WBC elevated from 5.2-12.6. Hemoglobin stable 12.3. RADIOLOGY: Upper GI report confirmed pyloric stenosis. Presence of presbyesophagus including gastritis. ASSESSMENT: 1. Pyloric stenosis with presbyesophagus 2. Underway, BMI 18.2 PLAN: 1. Continue liquid diet as tolerated. 2. Surgical intervention versus repeat upper endoscopy pending. Objective - Vital Signs Vital signs: Vital Signs Temp 97.6 F 05/06/21 08:00 Pulse 65 05/06/21 08:00 Resp 18 05/06/21 08:00 BP 144/60 05/06/21 08:00 Pulse Ox 90 L 05/06/21 08:00 Intake & Output 05/05/21 05/06/21 05/06/21 18:59 06:59 18:59 Intake Total 1560 Output Total 900 250 Balance 660 -250 Weight 48.081 kg Intake: Intake, IV Titration 1560 Amount Sodium Chloride 0.9% 1, 1560 000 ml @ 130 mls/hr IV . Q7H42M [facility] Rx#:[id number] Output: Urine 900 250 Other: Voiding Method Bedside Commode Bedside Commode Diaper Diaper # Voids 3 # Bowel Movements 0 - Labs CBC & Chem 7: 05/06/21 05:36 05/06/21 05:36 Labs: Abnormal Lab Results - Last 24 Hours (Table) 05/06/21 05/06/21 05/06/21 Range/Units 02:19 05:36 05:36 WBC 11.4 H 12.62 H (3.8-10.6) k/uL RBC 3.87 L (4.10-5.20) X 10*6/uL MCV 100.2 H 101.6 H (80.0-100.0) fL MCHC 31.3 L (32.0-37.0) g/dL Immature Gran # 0.05 H (0.00-0.04) X 10*3/uL Neutrophils # 9.5 H 10.25 H (1.3-7.7) k/uL Carbon Dioxide 17.0 L (20.0-27.5) mmol/L BUN 3.8 L (9.0-27.0) mg/dL BUN/Creatinine Ratio 6.34 L (12.00-20.00) Ratio Total Protein 5.4 L (6.2-8.2) g/dL Albumin 3.1 L (3.8-4.9) g/dL Albumin/Globulin Ratio 1.31 L (1.60-3.17) g/dL
--- NOTE | 2021-05-06 14:11 | P.CRDCN ---
History of Present Illness Consult date: 05/06/21 Chief complaint: Nausea and vomiting History of present illness: The patient is a pleasant 86-year-old female patient was brought from an [facility] facility for further evaluation regarding symptoms of nausea and vomiting. The patient somewhat is a poor historian. She stated that she has been experiencing symptoms of nausea and she has not been feeding well for the last few weeks. Her symptoms started about 2 weeks ago. She is known to have esophageal stricture and she is scheduled to undergo diabetic dictation in the next few weeks. She reports no pain in the chest or shortness of breath or any dizziness or lightheadedness or any feeling of heart racing or fluttering. Her telemetry was abnormal. An EKG was performed and showed sinus mechanism was PVCs without any significant ST or T-wave abnormalities. The chest x-ray did not show any acute abnormalities. Clinically the patient is not experiencing any cardiovascular symptoms. She is known to have paroxysmal atrial fibrillation. She is known to have a stroke in the past and also she is known to have hypertension and dyslipidemia. The physical examination she seems to be euvolemic and as a matter of fact she is slightly on the dry side. She does have a systolic murmur on examination as well. At this point and in the absence of any symptoms of chest pain or chest discomfort or shortness of breath and in the light of being hemodynamically stable I would advise continue the current medical regimen with restarting her back on lisinopril with the home dose at 5 mg by mouth daily and obtain an echocardiogram for further clarification of the heart murmur. On examination. Beside that we will watch the patient for any arrhythmia. We'll continue following up with her Past Medical History Past Medical History: Cancer, CVA/TIA, Diabetes Mellitus, Eye Disorder, GERD/Reflux, Hyperlipidemia, Hypertension, Osteoarthritis (OA), Thyroid Disorder Additional Past Medical History / Comment(s): HX: DM, NO RX SINCE WGT LOSS. SCOLIOSIS, BACK PAIN. SKIN CA, MULT. CVA, SL generalized weakness residual, TIA 04/2013 (pt/francisco j think she has a couple). Irregular heart beat OCC, Bradycardia at times, MINOR HEART MURMUR. GLAUCOMA. LT HIP FX 10/2017, HAS IRRITATING HARDWARE NOW. History of Any Multi-Drug Resistant Organisms: None Reported Past Surgical History: Hysterectomy Additional Past Surgical History / Comment(s): Colonoscopies w/ polypectomy- benign. MAIRA CATARACTS. Epidural INJ Lumbar Spine, LAST 10/07/17. 10/22/17 ORIF LT HIP. Past Anesthesia/Blood Transfusion Reactions: No Reported Reaction Past Psychological History: Anxiety, Depression Additional Psychological History / Comment(s): Pt from [facility] Smoking Status: Never smoker Past Alcohol Use History: None Reported Past Drug Use History: None Reported - Past Family History Son(s) Family Medical History: Deep Vein Thrombosis (DVT) Father Family Medical History: Coronary Artery Disease (CAD), Myocardial Infarction (M I) Additional Family Medical History / Comment(s): Father of [place]-pt unsure what age,. Mother Family Medical History: CVA/TIA Medications and Allergies Home Medications Medication Instructions Recorded Confirmed Type Cholecalciferol [Vitamin D3 (25 25 mcg PO DAILY@79910/02/13 05/04/21 History Mcg = 1000 Iu)] Aspirin EC [Ecotrin Low Dose] 81 mg PO DAILY@79912/23/15 05/04/21 History rOPINIRole HCL [Requip] 3 mg PO HS@209912/23/15 05/04/21 History timoloL maleate [Timolol Maleate] 1 drop BOTH EYES DAILY@79912/23/15 05/04/21 History Donepezil HCl [Aricept] 5 mg PO HS@209910/15/17 05/04/21 History Ferrous Sulfate [Iron (65 MG 325 mg PO DAILY@79912/25/17 05/04/21 History Elemental)] Latanoprost Ophth [Xalatan 0.005%] 1 drop BOTH EYES HS@209912/25/17 05/04/21 History Potassium Chloride ER [K-Dur 10] 10 meq PO DAILY@169912/25/17 05/04/21 History lisinopriL [Prinivil] 5 mg PO DAILY@79912/30/17 05/04/21 History Loperamide HCl [Imodium A-D] 2 - 4 mg PO QID PRN 02/14/21 05/04/21 History Menthol [Biofreeze] 1 applic TOPICAL BID PRN 02/14/21 05/04/21 History Rivaroxaban [Xarelto] 10 mg PO DAILY@0802/14/2122 History Rosuvastatin Calcium [Crestor] 5 mg PO HS@209902/14/21 05/04/21 History guaiFENesin [guaiFENesin Oral 100 mg PO Q4H PRN 02/14/21 05/04/21 History Solution] Ensure Clear 237 ml PO TID@0800,1200,1700 03/08/21 05/04/21 History Levothyroxine Sodium [Synthroid] 25 mcg PO DAILY@0800 03/08/21 05/04/21 History Magnesium Hydroxide [Milk of 7,200 mg PO Q48H PRN 03/08/21 05/04/21 History Magnesia Concentrate] Mirtazapine [Remeron] 30 mg PO HS@209903/08/21 05/04/21 History Na Phos,M-B/Na Phos,Di-Ba [Fleet 133 ml RECTAL DAILY PRN 03/08/21 05/04/21 History Adult] Sennosides [Senna] 17.2 mg PO HS@209903/08/21 05/04/21 History bisacodyL [Dulcolax] 10 mg RECTAL DAILY PRN 03/08/21 05/04/21 History Acetaminophen Tab [Tylenol] 650 mg PO Q6HR PRN tab 03/10/21 05/04/21 Rx HYDROcodone/APAP 7.5-325MG [[place] 1 tab PO Q4H PRN #4 tab 03/10/21 05/04/21 Rx 7.5-325] Pantoprazole [Protonix] 40 mg PO BID@0800,1700 05/04/21 05/04/21 History Allergies Allergy/AdvReac Type Severity Reaction Status Date / Time No Known Allergies Allergy Verified 03/08/21 07:29 Physical Exam Vitals: Vital Signs Temp Pulse Resp BP Pulse Ox 05/06/21 08:00 97.6 F 65 18 144/60 90 L 05/06/21 01:37 79 172/78 94 L 05/06/21 01:19 97.9 F 162 H 15 180/80 94 L 05/06/21 00:10 55 L 169/81 05/05/21 20:19 97.7 F 72 16 166/77 99 05/05/21 19:15 72 16 Intake and Output 05/05/21 05/06/21 05/06/21 22:59 06:59 14:59 Intake Total 1560 Output Total 900 250 Balance 660 -250 Intake: Intake, IV Titration 1560 Amount Sodium Chloride 0.9% 1, 1560 000 ml @ 130 mls/hr IV . Q7H42M [facility] Rx#:[id number] Output: Urine 900 250 Other: Voiding Method Bedside Commode Bedside Commode Diaper Diaper # Voids 3 # Bowel Movements 0 - Constitutional General appearance: no acute distress - Respiratory Respiratory: bilateral: CTA - Cardiovascular Rhythm: regular Heart sounds: normal: S1, S2 Abnormal Heart Sounds: systolic murmur Results 05/06/21 05:36 05/06/21 05:36 Cardiac Enzymes 05/06/21 Range/Units 05:36 AST 31 (13-35) U/L CBC 05/06/21 05/06/21 Range/Units 02:19 05:36 WBC 11.4 H 12.62 H (3.8-10.6) k/uL RBC 3.99 3.87 L (3.80-5.40) m/uL Hgb 12.9 12.3 (11.4-16.0) gm/dL Hct 40.0 39.3 (34.0-46.0) % Plt Count 228 192 (150-450) k/uL Comprehensive Metabolic Panel 05/06/21 Range/Units 05:36 Sodium 140 (135-145) mmol/L Potassium 4.1 (3.5-5.5) mmol/L Chloride 106 (96-109) mmol/L Carbon Dioxide 17.0 L (20.0-27.5) mmol/L BUN 3.8 L (9.0-27.0) mg/dL Creatinine 0.6 (0.6-1.5) mg/dL Glucose 84 (70-110) mg/dL Calcium 8.8 (8.7-10.3) mg/dL AST 31 (13-35) U/L ALT 9 (8-44) U/L Alkaline Phosphatase 63 (41-126) U/L Total Protein 5.4 L (6.2-8.2) g/dL Albumin 3.1 L (3.8-4.9) g/dL Current Medications Generic Name Dose Route Start Last Admin Trade Name Freq PRN Reason Stop Dose Admin Hydralazine HCl 10 mg 05/06/21 11:01 Hydralazine Hcl 20 Mg/Ml 1 Ml Vial IVP Q6HR PRN Blood Pressure - High Sodium Chloride 1,000 mls @ 75 mls/hr 05/06/21 11:22 05/06/21 12:47 Saline 0.9% IV 05/07/21 00:41 75 mls/hr .[id number] STA Administration Latanoprost 1 drops 05/04/21 21:00 05/05/21 21:44 Latanoprost 0.005% Ophth Drops 2.5 Ml Btl BOTH EYES 1 drops HS@2100 RUFINA Administration Lisinopril 5 mg 05/07/21 09:00 Lisinopril 10 Mg Tab PO DAILY RUFINA Naloxone HCl 0.2 mg 05/04/21 17:27 Naloxone 0.4 Mg/Ml 1 Ml Vial IV Q2M PRN Opioid Reversal Pantoprazole Sodium 40 mg 05/04/21 21:00 05/06/21 08:48 Pantoprazole 40 Mg/10 Ml Vial IVP 40 mg BID RUFINA Administration Timolol Maleate 1 drops 05/05/21 08:00 05/06/21 08:48 Timolol 0.25% Ophth Drops 5 Ml Btl BOTH EYES 1 drops DAILY@0800 RUFINA Administration Intake and Output 05/05/21 05/06/21 05/06/21 22:59 06:59 14:59 Intake Total 1560 Output Total 900 250 Balance 660 -250 Intake: Intake, IV Titration 1560 Amount Sodium Chloride 0.9% 1, 1560 000 ml @ 130 mls/hr IV . Q7H42M [facility] Rx#:[id number] Output: Urine 900 250 Other: Voiding Method Bedside Commode Bedside Commode Diaper Diaper # Voids 3 # Bowel Movements 0 05/06/21 05:36 05/06/21 05:36 Assessment and Plan Assessment: Assessment #1 symptoms of nausea and vomiting #2 for oral intake #3 history of esophageal stricture #4 history of paroxysmal atrial fibrillation #5 history of stroke #6 abnormal telemetry showing PVCs Plan #1 the patient is asymptomatic from the cardiac standpoint #2 she is hemodynamically stable #3 restart her back on lisinopril #4 monitor for any arrhythmia #5 obtain an echocardiogram was Doppler
[2021-05-06 16:21] LABS: Appearance,Urine Clear (Clear); Bacteria,Urine Rare /hpf; Bilirubin,Urine Negative (Negative); Blood,Urine Small (Negative); Color,Urine Colorless; Glucose,Urine (UA) Negative (Negative); Ketones,Urine Negative (Negative); Leukocyte Esterase,Urine Negative (Negative); Mucus,Urine Rare /hpf; Nitrite,Urine Negative (Negative); Protein,Urine Negative (Negative); RBC,Urine 11 /hpf (0-5); Specific Gravity,Urine 1.004 (1.001-1.035); Urobilinogen,Urine <2.0 mg/dL (<2.0); WBC,Urine 2 /hpf (0-5)
[2021-05-06] MEDS: hydrALAZINE HCL 20 MG/ML 1 ML VIAL IVP PRN (17:59)
[2021-05-06] MEDS ORDERED: guaiFENesin SYRUP 100MG/5ML 200 MG/10 ML CUP PO PRN (19:11)
[2021-05-06] MEDS ORDERED: HYDROcodone/APAP 7.5-325MG 1 EACH TAB PO PRN (19:11)
[2021-05-06] MEDS ORDERED: bisacodyL 10 MG SUPP RECTAL PRN (19:11)
[2021-05-06 20:20] LABS: Glucose,Whole Blood 82 mg/dL (75-99)
[2021-05-06] MEDS ORDERED: DONEPEZIL 5 MG TAB PO SCH (21:00)
[2021-05-06] MEDS: LATANOPROST 0.005% OPHTH DROPS 2.5 ML BTL BOTH EYES SCH (22:14)
[2021-05-07 05:55] LABS: Basophils % (A) 0 %; Eosinophils # (A) 0.1 k/uL (0-0.7); Eosinophils % (A) 1 %; HCT 41.5 % (34.0-46.0); HGB 13.4 gm/dL (11.4-16.0); Lymphocytes # (A) 1.8 k/uL (1.0-4.8); Lymphocytes % (A) 27 %; MCH 31.7 pg (25.0-35.0); MCHC 32.2 g/dL (31.0-37.0); MCV 98.5 fL (80.0-100.0); Monocytes # (A) 0.4 k/uL (0-1.0); Monocytes % (A) 5 %; Neutrophils # (A) 4.3 k/uL (1.3-7.7); Neutrophils % (A) 64 %; Platelet Count 222 k/uL (150-450); RBC 4.22 m/uL (3.80-5.40); RDW 14.1 % (11.5-15.5); WBC 6.7 k/uL (3.8-10.6)
[2021-05-07 07:05] LABS: Glucose,Whole Blood 87 mg/dL (75-99)
[2021-05-07] MEDS ORDERED: ASPIRIN 81 MG PO SCH (08:00)
[2021-05-07] MEDS ORDERED: CHOLECALCIFEROL 25 MCG (1000 IU) TABLET PO SCH (08:00)
[2021-05-07] MEDS ORDERED: lisinopriL 5 MG TAB PO SCH (08:00)
[2021-05-07] MEDS ORDERED: LEVOTHYROXINE 25 MCG TAB PO SCH (08:00)
[2021-05-07] MEDS ORDERED: FERROUS SULFATE 325 MG TAB PO SCH (08:00)
--- NOTE | 2021-05-07 08:55 | P.PN ---
Subjective Progress Note Date: 05/07/21 The patient is in the hospital with difficulty eating. She was noted to have blood on her pure wick yeterday. Her urine on admission was clear. It was a cathed urine however. I suspect there was some minor irritation from the cath that led to the bleeding. The urine yesterday showed minimal blood. Nothing further needs to be done. Please contact me if further issues arise urologically. Objective - Vital Signs Vital signs: Vital Signs Temp 97.9 F 05/07/21 01:12 Pulse 85 05/07/21 01:12 Resp 15 05/07/21 01:12 BP 146/98 05/07/21 01:12 Pulse Ox 95 05/07/21 01:12 Intake & Output 05/06/21 05/07/21 05/07/21 18:59 06:59 18:59 Intake Total 1020 Output Total 850 300 Balance 170 -300 Intake: Oral 1020 Output: Urine 850 300 Other: Voiding Method Bedside Commode Bedside Commode Diaper Diaper External Catheter - Labs CBC & Chem 7: 05/07/21 05:13 05/06/21 05:36 Labs: Abnormal Lab Results - Last 24 Hours (Table) 05/06/21 05/06/21 05/06/21 Range/Units 05:36 05:36 Unknown WBC 12.62 H (4.50-10.00) X 10*3/uL RBC 3.87 L (4.10-5.20) X 10*6/uL MCV 101.6 H (80.0-97.0) fL MCHC 31.3 L (32.0-37.0) g/dL Immature Gran # 0.05 H (0.00-0.04) X 10*3/uL Neutrophils # 10.25 H (1.80-7.70) X 10*3/uL Carbon Dioxide 17.0 L (20.0-27.5) mmol/L BUN 3.8 L (9.0-27.0) mg/dL BUN/Creatinine Ratio 6.34 L (12.00-20.00) Ratio Total Protein 5.4 L (6.2-8.2) g/dL Albumin 3.1 L (3.8-4.9) g/dL Albumin/Globulin Ratio 1.31 L (1.60-3.17) g/dL Urine Blood Small H (Negative) Urine RBC 11 H (0-5) /hpf Urine Bacteria Rare H (None) /hpf Urine Mucus Rare H (None) /hpf
[2021-05-07] MEDS: ENSURE CLEAR PO SCH ×3 (09:54→18:19)
[2021-05-07] MEDS: lisinopriL 5 MG TAB PO SCH (10:03)
[2021-05-07] MEDS: PANTOPRAZOLE 40 MG/10 ML VIAL IVP SCH ×2 (10:03→22:35)
[2021-05-07] MEDS: TIMOLOL 0.25% OPHTH DROPS 5 ML BTL BOTH EYES SCH (10:04)
--- NOTE | 2021-05-07 10:22 | P.PN ---
Subjective Progress Note Date: 05/07/21 Prerna Hyde, is a 86-year-old female patient who was sent to ER from [facility] with concerns of dehydration and failure to thrive. Patient has a known past medical history of esophageal strictures. Patient is scheduled pain for pyloric dilation and early May but over the past 2 weeks patient has lost 10 pounds and had increasing vomiting and unable to keep fluids down. Additional medical history includes CVA, diabetes mellitus, high disorder, GERD, hyperlipidemia, hypertension, thyroid disorder, dementia, anxiety and depression. Chest x-ray was completed showing no acute process. This time patient will be admitted patient initiated on IV hydration and surgical services have been consulted. Patient is currently sitting comfortably in chair. At this time patient denies chest pain or shortness breath. Patient denies nausea vomiting or diarrhea. Patient denies any urinary burning or frequency. On 05/06/2021 patient was seen and examined on the medical floor she is alert and oriented 3 in no apparent distress she is denying any pain or any symptoms at this time, her blood pressure is 144/60 pulse 65 respiration 18 temperature 97.6 and pulse ox 90% on room air. Throughout last night, I received multiple calls regarding this patient for hematuria, possible cardiac arrhythmia. Actually the nurse called in the A team at 1:30 AM due to concern about hematur ia, CBC was done, hemoglobin is stable, at this point I discontinued Lovenox and ordered SCD stockings for DVT prophylaxis, urology consultation was requested in that regard to hematuria. The nurse also had concern regarding possible cardiac arrhythmia at some point during the last night heart rate was up to 162 then was mostly in the 50s and 60s throughout the night, cardiology consultation was requested in that regard. At this time patient seems to be stable she is receiving IV fluid, I will decrease the dose to 75 mL per hour and give 1 dose of IV Lasix due to some fine crackles in her bases. Otherwise we are awaiting intervention by GI or surgery for esophageal stricture. At this time patient is not able to take any pills, I have added hydralazine IV on a when necessary basis for elevated blood pressure. Will resume oral medication after esophageal dilatation. On 05/07/2021 patient is alert and oriented 3 resting comfortably in bed. Temp 98, heart rate 90, respiratory rate 16, blood pressure 147/80 95% on room air. Patient was evaluated by the urology service is minimal blood noted on UA no further workup inpatient per urology. Patient also currently being followed by cardiology services for atrial fibrillation. Awaiting surgical plan in regards to possible dilation of esophageal stricture. Patient is currently resting in bed with eyes chest pain or shortness breath. Patient denies nausea vomiting or diarrhea. Denies any urinary burning or frequency Objective - Vital Signs Vital signs: Vital Signs Temp 98 F 05/07/21 08:00 Pulse 90 05/07/21 08:00 Resp 16 05/07/21 08:00 BP 147/80 05/07/21 08:00 Pulse Ox 95 05/07/21 08:00 Intake & Output 05/06/21 05/07/21 05/07/21 18:59 06:59 18:59 Intake Total 1020 Output Total 850 300 Balance 170 -300 Intake: Oral 1020 Output: Urine 850 300 Other: Voiding Method Bedside Commode Bedside Commode Diaper Diaper External Catheter - Exam In general patient is alert and oriented x 3 in no distress HEENT head normocephalic and atraumatic Neck is supple no JVD no goiter no lymphadenopathy no carotid bruit Chest examination reveals a few crackles in both lung bases no wheezing Cardiac exam reveals regular heart sounds S1 and S2 no gallops no murmurs Abdomen is soft nontender no organomegaly with normal bowel sounds Extremity exam reveals no edema no cyanosis or clubbing Neurological examination reveals no gross focal deficits - Labs CBC & Chem 7: 05/07/21 05:13 05/06/21 05:36 Labs: Abnormal Lab Results - Last 24 Hours (Table) 05/06/21 05/06/21 Range/Units 05:36 Unknown Carbon Dioxide 17.0 L (20.0-27.5) mmol/L BUN 3.8 L (9.0-27.0) mg/dL BUN/Creatinine Ratio 6.34 L (12.00-20.00) Ratio Total Protein 5.4 L (6.2-8.2) g/dL Albumin 3.1 L (3.8-4.9) g/dL Albumin/Globulin Ratio 1.31 L (1.60-3.17) g/dL Urine Blood Small H (Negative) Urine RBC 11 H (0-5) /hpf Urine Bacteria Rare H (None) /hpf Urine Mucus Rare H (None) /hpf Assessment and Plan Assessment: 1. Poor oral intake with failure to thrive secondary to esophageal stricture 2. Patient recently underwent EGD. EGD revealing severe esophagitis with erosions and states involving the entirely mid and distal stoppages consistent with LAD grade C reflux esophagitis. Patient did have follow-up scheduled in early May 3. History of proximal atrial fibrillation. xarelto on hold. Maintained on Lovenox 4. History of CVA 5. History of type 2 diabetes mellitus 6. Hyperlipidemia. Maintained on statins 7. History of essential hypertension 8. Hypothyroidism 9. History of dementia 10. Hematuria per manager night nurse, urology consultation requested. Patient was evaluated by urology services. Minimum blood noted on UA. No further workup and patient 11. Episode of tachycardia with heart rate up to 162 with possible cardiac arrhythmia, cardiology consultation was requested DVT prophylaxis Lovenox. GI prophylaxis Protonix Surgical services have been consulted Cardiology services consulted Continue IV fluids
[2021-05-07 10:29] LABS: African American GFR (CKD) 95.7 (60.0-200.0); Albumin 3.3 g/dL (3.8-4.9); Albumin/Globulin Ratio 1.58 (1.60-3.17); Anion Gap 15.9 mmol/L (10.00-18.00); BUN/Creat Ratio 5.21 Ratio (12.00-20.00); Blood Urea Nitrogen 3.1 mg/dL (9.0-27.0); Calcium 8.6 mg/dL (8.7-10.3); Carbon Dioxide 19.7 mmol/L (20.0-27.5); Globulin 2.1 g/dL (1.6-3.3); Non-African American GFR(CKD) 82.6 (60.0-200.0); Total Bilirubin 0.2 mg/dL (0.30-1.20); Total Protein 5.4 g/dL (6.2-8.2)
--- NOTE | 2021-05-07 12:49 | P.PN ---
Subjective Progress Note Date: 05/07/21 Principal diagnosis: Cardiac arrhythmia The patient is an 86-year-old female patient with history of esophageal stricture was scheduled to undergo the procedure was brought from an extended care facility with symptoms of nausea and vomiting as well as decreased oral intake. We consulted to see the patient initially for PVCs. But earlier today the patient was tachycardic an EKG was performed and showed what it seems to be an SVT with differential diagnosis of atrial flutter. I'm going to start the patient on Toprol-XL. Clinically she denies any symptoms of chest pain or chest discomfort or shortness of breath. She denies any dizziness or lightheadedness or any feeling of heart racing or fluttering. The pressure seems to be within normal limits. Objective - Vital Signs Vital signs: Vital Signs Temp 98 F 05/07/21 08:00 Pulse 90 05/07/21 08:00 Resp 16 05/07/21 08:00 BP 147/80 05/07/21 08:00 Pulse Ox 95 05/07/21 08:00 Intake & Output 05/06/21 05/07/21 05/07/21 18:59 06:59 18:59 Intake Total 1020 Output Total 850 300 Balance 170 -300 Intake: Oral 1020 Output: Urine 850 300 Other: Voiding Method Bedside Commode Bedside Commode Bedside Commode Diaper Diaper Diaper External Catheter External Catheter - Constitutional General appearance: Present: no acute distress - Respiratory Respiratory: bilateral: CTA - Cardiovascular Rhythm: regular Heart sounds: normal: S1, S2 - Labs CBC & Chem 7: 05/07/21 05:13 05/07/21 05:13 Labs: Abnormal Lab Results - Last 24 Hours (Table) 05/06/21 05/07/21 Range/Units Unknown 05:13 Potassium 3.0 L (3.5-5.5) mmol/L Carbon Dioxide 19.7 L (20.0-27.5) mmol/L BUN 3.1 L (9.0-27.0) mg/dL BUN/Creatinine Ratio 5.21 L (12.00-20.00) Ratio Calcium 8.6 L (8.7-10.3) mg/dL Total Bilirubin 0.20 L (0.30-1.20) mg/dL Total Protein 5.4 L (6.2-8.2) g/dL Albumin 3.3 L (3.8-4.9) g/dL Albumin/Globulin Ratio 1.58 L (1.60-3.17) g/dL Urine Blood Small H (Negative) Urine RBC 11 H (0-5) /hpf Urine Bacteria Rare H (None) /hpf Urine Mucus Rare H (None) /hpf Assessment and Plan Assessment: Assessment #1 symptoms of nausea and vomiting #2 decrease oral intake #3 history of esophageal stricture #4 history of paroxysmal atrial fibrillation #5 history of stroke #6 abnormal telemetry showing PVCs Plan #1 start the patient on beta russ with Toprol-XL #2 restart the patient back on oral anticoagulation once she is stable from the GI standpoint of view #3 follow-up with the patient
--- NOTE | 2021-05-07 13:25 | ECHOF ---
Referral Reason:arrhythmia MEASUREMENTS -------- HEIGHT: 162.6 cm WEIGHT: 48.1 kg BP: 144/60 IVSd: 1.1 cm (0.6 - 1.1) LVIDd: 3.0 cm (3.9 - 5.3) LVPWd: 1.0 cm (0.6 - 1.1) IVSs: 1.3 cm LVIDs: 2.3 cm LVPWs: 1.7 cm LAESV Index (A-L): 43.68 ml/m MV E Abdoulaye: 1.07 m/s MV DecT: 361 ms MV A Abdoulaye: 1.17 m/s MV E/A Ratio: 0.92 AV maxP.07 mmHg AV meanP.23 mmHg RAP: 5.00 mmHg RVSP: 32.92 mmHg FINDINGS -------- Sinus rhythm with extra systolic beats. This was a technically adequate study. The left ventricular size is normal. There is borderline concentric left ventricular hypertrophy. Overall left ventricular systolic function is mildly impaired with, an EF between 45 - 50 %. LA is severely dilated >40 ml/m2 The right atrium was not well visualized. Interatrial and interventricular septum intact. There is mild aortic regurgitation. There is mild aortic stenosis present. The maximum velocity a cross the aortic valve is 2.34m/s. Peak/mean gradient across the Aortic Valve is 22.07mmHg / 12.23m mHg. [id number] mitral regurgitation is present. Mild tricuspid regurgitation present. There is no evidence of pulmonary hypertension. The right v entricular systolic pressure, as measured by Doppler, is 32.92mmHg. The pulmonic valve was not well visualized. IVC Not well visulized. There is no pericardial effusion. CONCLUSIONS -------- 1. The left ventricular size is normal. 2. There is borderline concentric left ventricular hypertrophy. 3. Overall left ventricular systolic function is mildly impaired with, an EF between 45 - 50 %. 4. LA is severely dilated >40 ml/m2 5. There is mild aortic regurgitation. 6. There is mild aortic stenosis present. 7. The maximum velocity across the aortic valve is 2.34m/s. 8. Peak/mean gradient across the Aortic Valve is 22.07mmHg / 12.23mmHg. 9. [id number] mitral regurgitation is present. 10. Mild tricuspid regurgitation present. [employer]: Mira Salas RDCS
--- NOTE | 2021-05-07 15:08 | P.PN ---
Subjective Progress Note Date: 05/07/21 CHIEF COMPLAINT: Nausea and vomiting HISTORY OF PRESENT ILLNESS: The patient is a 86-year-old female with pyloric stenosis presented with nausea and vomiting. She is resting comfortably. ROS: No fevers or chills. No new chest pain. PHYSICAL EXAM: VITAL SIGNS: Reviewed CONSTITUTIONAL: Well developed and in no acute distress. EYES: Conjuctivae without sclera icterus. Extraocular movements grossly intact. HEAD, EARS, NOSE, THROAT: Moist buccal mucosa. Head is atraumatic, normocephalic. No nasal drainage. RESPIRATORY: Non-labored respirations and equal bilateral excursions. CARDIOVASCULAR: Palpable 2+ radial pulses. ABDOMEN: Nontender. Nondistended. MUSCULOSKELETAL: No gross deformity of the lower extremities noted. No clubbing. No cyanosis. SKIN: Good skin turgor. Well perfused. NEUROLOGIC: Cranial nerves II through XII grossly intact. No focal or lateralizing signs. PSYCH: Alert to person. CLINICAL LABS: Reviewed. WBC normal. ASSESSMENT: 1. Pyloric stenosis with presbyesophagus 2. Underway, BMI 18.2 PLAN: 1. May benefit from repeat upper endoscopy and surgical intervention. Objective - Vital Signs Vital signs: Vital Signs Temp 98 F 05/07/21 14:00 Pulse 70 05/07/21 14:00 Resp 16 05/07/21 14:00 BP 94/66 05/07/21 14:00 Pulse Ox 99 05/07/21 14:00 Intake & Output 05/06/21 05/07/21 05/07/21 18:59 06:59 18:59 Intake Total 1020 Output Total 850 300 Balance 170 -300 Intake: Oral 1020 Output: Urine 850 300 Other: Voiding Method Bedside Commode Bedside Commode Bedside Commode Diaper Diaper Diaper External Catheter External Catheter - Labs CBC & Chem 7: 05/07/21 05:13 05/07/21 05:13 Labs: Abnormal Lab Results - Last 24 Hours (Table) 05/06/21 05/07/21 Range/Units Unknown 05:13 Potassium 3.0 L (3.5-5.5) mmol/L Carbon Dioxide 19.7 L (20.0-27.5) mmol/L BUN 3.1 L (9.0-27.0) mg/dL BUN/Creatinine Ratio 5.21 L (12.00-20.00) Ratio Calcium 8.6 L (8.7-10.3) mg/dL Total Bilirubin 0.20 L (0.30-1.20) mg/dL Total Protein 5.4 L (6.2-8.2) g/dL Albumin 3.3 L (3.8-4.9) g/dL Albumin/Globulin Ratio 1.58 L (1.60-3.17) g/dL Urine Blood Small H (Negative) Urine RBC 11 H (0-5) /hpf Urine Bacteria Rare H (None) /hpf Urine Mucus Rare H (None) /hpf
[2021-05-07] MEDS ORDERED: Potassium Replacement Protocol 1 EACH MISC MISCELLANE PRN (17:17)
[2021-05-07] MEDS: LATANOPROST 0.005% OPHTH DROPS 2.5 ML BTL BOTH EYES SCH (22:35)
[2021-05-08 09:32] LABS: HCT 39.2 % (34.0-46.0); HGB 11.6 gm/dL (11.4-16.0); Hypochromasia Marked; MCH 32.8 pg (25.0-35.0); MCHC 29.7 g/dL (31.0-37.0); Macrocytosis Marked; Platelet Count 210 k/uL (150-450); RBC 3.54 m/uL (3.80-5.40); RDW 13.8 % (11.5-15.5); WBC 7.2 k/uL (3.8-10.6)
[2021-05-08 09:37] LABS: African American GFR (CKD) >90 (>60 ml/min/1.73 sqM); Anion Gap 5 mmol/L; Blood Urea Nitrogen 3 mg/dL (7-17); Calcium 8.1 mg/dL (8.4-10.2); Carbon Dioxide 19 mmol/L (22-30); Chloride 114 mmol/L (98-107); Glucose 105 mg/dL (74-99); Non-African American GFR(CKD) 82 (>60 ml/min/1.73 sqM); Sodium 138 mmol/L (137-145)
[2021-05-08 09:48] LABS: MCV 110.6 fL (80.0-100.0)
[2021-05-08] MEDS: PANTOPRAZOLE 40 MG/10 ML VIAL IVP SCH ×2 (09:56→20:31)
[2021-05-08] MEDS: ENSURE CLEAR PO SCH ×3 (09:57→18:30)
[2021-05-08] MEDS: METOPROLOL SUCCINATE (ER) 25 MG TAB.ER.24H PO SCH (09:57)
[2021-05-08] MEDS: lisinopriL 5 MG TAB PO SCH (09:57)
[2021-05-08] MEDS: TIMOLOL 0.25% OPHTH DROPS 5 ML BTL BOTH EYES SCH (09:57)
[2021-05-08] MEDS ORDERED: POTASSIUM CHLORIDE 10 MEQ in WATER FOR INJECTION 1 100ML.BAG IVPB SCH (11:00)
--- NOTE | 2021-05-08 11:36 | P.PN ---
Subjective The patient is a pleasant 86-year-old female patient with a past medical history of esophageal stricture, esophagitits, gastritis, paroxysmal atrial fibrillation (patient on Xarelto 10mg at home), type 2 diabetes, hypertension, hyperlipidemia, TIA. She states she does not follow with a manufacturing intern. We are consulted for cardiac arrhythmia, which was initially PVCs, however, on 05/07/21 EKG revealed SVT vs. atrial flutter. Patient was started on Toprol XL. She was admitted from an extended care facility for further evaluation regarding symptoms of nausea and vomiting and failure to thrive. Upper GI endoscopy revealed pyloric stenosis. Her Xarelto has been held per surgery. Patient is seen and examined today at bedside. Clinically she denies any symptoms of chest pain or chest discomfort or shortness of breath. She denies any dizziness or lightheadedness or any feeling of heart racing or fluttering. The pressure seems to be within normal limits. Her xarelto continues to be held for possible upper endoscopy vs surgical intervention. Echocardiogram revealed EF of 4550%, LA severely dilated, mild aortic stenosis, mild aortic regurgitation, peak/mean gradient across aortic valve 22 mmHg/12 mmHg, mild to moderate mitral regurgitation, mild tricuspid regurgitation Telemetry reviewed, patient sinus mechanism this morning heart rate in the 80s, yesterday evening patient with an episode of tachycardia which appears to be atrial fibrillation with RVR vs typical atrial flutter She is currently maintained on lisinopril 5 mg daily, metoprolol succinate 25 mg daily, IV fluids Labs pending GENERAL: Frail, in no acute distress NECK: Supple without JVD or thyromegaly. LUNGS: Breath sounds clear to auscultation bilaterally. Respiration equal and unlabored. No wheezes, rales or rhonchi. HEART: Regular rate and rhythm, systolic ejection murmur at apex. No rubs or gallops. S1 and S2 heard. EXTREMITIES: Normal range of motion, no edema. No clubbing or cyanosis. Peripheral pulses intact. ASSESSMENT Symptoms of nausea and vomiting Decreased oral intake Paroxysmal atrial fibrillation with RVR [id number] score 4 History of esophageal stricture History of esophagitis History of gastritis History of hypertension Type 2 diabetes Hyperlipidemia History of TIA Hypokalemia PLAN We will continue medical therapy with metoprolol succinate and lisinopril Xarelto continues to be on hold per surgery recommendations, restart the patient back on oral anticoagulation once she is stable from the GI standpoint of view Continue cardiac telemetry Further recommendations based on clinical course Nurse Practitioner note has been reviewed, I agree with a documented findings and plan of care. Patient was seen and examined. Objective - Vital Signs Vital signs: Vital Signs Temp 98.2 F 05/08/21 08:15 Pulse 71 05/08/21 08:15 Resp 18 05/08/21 08:15 BP 113/84 05/08/21 08:15 Pulse Ox 94 L 05/08/21 08:15 Intake & Output 05/07/21 05/08/21 05/08/21 18:59 06:59 18:59 Output Total 200 100 Balance -200 -100 Output: Urine 200 100 Other: Voiding Method Bedside Commode Bedside Commode Diaper Diaper External Catheter External Catheter - Labs CBC & Chem 7: 05/08/21 08:51 05/08/21 08:51 Labs: Abnormal Lab Results - Last 24 Hours (Table) 05/07/21 Range/Units 05:13 Potassium 3.0 L (3.5-5.5) mmol/L Carbon Dioxide 19.7 L (20.0-27.5) mmol/L BUN 3.1 L (9.0-27.0) mg/dL BUN/Creatinine Ratio 5.21 L (12.00-20.00) Ratio Calcium 8.6 L (8.7-10.3) mg/dL Total Bilirubin 0.20 L (0.30-1.20) mg/dL Total Protein 5.4 L (6.2-8.2) g/dL Albumin 3.3 L (3.8-4.9) g/dL Albumin/Globulin Ratio 1.58 L (1.60-3.17) g/dL
[2021-05-08] MEDS ORDERED: Magnesium Replacement Protocol 1 EACH MISC MISCELLANE PRN (11:37)
[2021-05-08] MEDS ORDERED: Potassium Replacement Protocol 1 EACH MISC MISCELLANE PRN ×2 (11:42→21:40)
[2021-05-08] MEDS: MAGNESIUM SULFATE-D5W PMX 1 GM in DEXTROSE/WATER 1 100ML.BAG IVPB SCH ×2 (12:20→14:09)
[2021-05-08] MEDS: POTASSIUM BICARBONATE/CIT AC 20 MEQ TABLET.EFF NG-TUBE SCH ×3 (12:20→22:42)
--- NOTE | 2021-05-08 13:37 | P.PN ---
Subjective Progress Note Date: 05/08/21 CHIEF COMPLAINT: Nausea and vomiting HISTORY OF PRESENT ILLNESS: Patient was found to have evidence of pyloric stenosis on upper GI. She denies any abdominal pain. She is tolerating clear liquid diet. Afebrile. WBC is 7.2 hemoglobin 11.6 platelets 210 sodium is 138 potassium is 3.0 creatinine 0.62 magnesium 1.5 PHYSICAL EXAM: VITAL SIGNS: Reviewed. GENERAL: Well-developed in no acute distress. HEENT: No sclera icterus. Extraocular movements grossly intact. Moist buccal mucosa. Head is atraumatic, normocephalic. ABDOMEN: Soft. Nondistended. Nontender. NEUROLOGIC: Alert and oriented to self ASSESSMENT: 1. Pyloric stenosis with presbyesophagus 2. Underweight, BMI 18.2 3. Hypokalemia PLAN: -Patient scheduled for EGD tomorrow with Dr. contreras -Nothing by mouth after midnight -Replace potassium and and magnesium -Patient scheduled for Pyloromyotomy for pyloric stenosis on Saturday to 05/10/[address] Contreras Physician Manager [employer] note has been reviewed by physician. Signing provider agrees with the documented findings, assessment, and plan of care. Objective - Vital Signs Vital signs: Vital Signs Temp 98.2 F 05/08/21 08:15 Pulse 71 05/08/21 08:15 Resp 18 05/08/21 08:15 BP 113/84 05/08/21 08:15 Pulse Ox 94 L 05/08/21 08:15 Intake & Output 05/07/21 05/08/21 05/08/21 18:59 06:59 18:59 Output Total 200 100 Balance -200 -100 Output: Urine 200 100 Other: Voiding Method Bedside Commode Bedside Commode External Catheter Diaper Diaper External Catheter External Catheter - Labs CBC & Chem 7: 05/08/21 08:51 05/08/21 08:51 Labs: Abnormal Lab Results - Last 24 Hours (Table) 05/08/21 05/08/21 Range/Units 08:51 08:51 RBC 3.54 L (3.80-5.40) m/uL MCV 110.6 H D (80.0-100.0) fL MCHC 29.7 L (31.0-37.0) g/dL Macrocytosis Marked A Potassium 3.0 L (3.5-5.1) mmol/L Chloride 114 H (98-107) mmol/L Carbon Dioxide 19 L (22-30) mmol/L BUN 3 L (7-17) mg/dL Glucose 105 H (74-99) mg/dL Calcium 8.1 L (8.4-10.2) mg/dL
--- NOTE | 2021-05-08 16:50 | CDI ---
Documentation Clarification Form Date: 05/08/2021 04:35:09 PM From: Rosario Johnson RN, CCDS Admit Date: 05/06/2021 12:39:00 PM Patient Name: Prerna Hyde Visit Number: [id number] Discharge Date: ATTENTION: The Clinical Documentation Specialists (CDI) and [facility] Coding Staff appreciate your assistance in clarifying documentation. Please respond to the clarification below the line at the bottom and electronically sign. The CDI & [facility] Coding staff will review the response and follow-up if needed. Please note: Queries are made part of the Legal Health Record. If you have any questions, please contact the author of this message via ITS. Dr. Melissa Leiva The Registered Dietitian assessment on 05/05, indicates this patient meets criteria for acute malnutrition, moderate in severity with BMI 18.2. Based on this information and the findings below, is there an additional diagnosis that is clinically appropriate for this patient? History/Risk Factors: CVA, DM, GERD, HTN, Esophageal stricture Clinical Indicators: 86-year-old female present with 20 pound weight loss last 2 weeks. She is not able to eat food and apparently vomits after trying. She is able to get a little bit of fluid down. She does complain of severe weakness RD Consult Assessment: present with difficulty chewing with appetite fair. Current BMI: 18.2 Insufficient energy intake: Yes Weight Loss: Yes Loss of subcutaneous fat: yes, moderate temporalis and pectoralis major muscle wasting Loss of muscle mass: Yes Treatment: Monitor supplement intake and diet Dietary Consult: Yes Supplements: Ensure Clear BID TPN @ 41 MLS/HR .9NS 500 ML Bolus 05/04 Protonix 40 MG IVP BID 05/04-05/08 Is there an additional diagnosis that is clinically appropriate for this patient? [ ] Mild Protein-Calorie Malnutrition [ ] Moderate Protein-Calorie Malnutrition [ x ] Severe Protein-Calorie Malnutrition [ ] Other condition, please specify [ ] Unable to Determine (Template Last Revised: June 2020) MTDD
--- NOTE | 2021-05-08 17:53 | P.PN ---
Subjective Progress Note Date: 05/08/21 Prerna Hyde, is a 86-year-old female patient who was sent to ER [facility] with concerns of dehydration and failure to thrive. Patient has a known past medical history of esophageal strictures. Patient is scheduled pain for pyloric dilation and early May but over the past 2 weeks patient has lost 10 pounds and had increasing vomiting and unable to keep fluids down. Additional medical history includes CVA, diabetes mellitus, high disorder, GERD, hyperlipidemia, hypertension, thyroid disorder, dementia, anxiety and depression. Chest x-ray was completed showing no acute process. This time patient will be admitted patient initiated on IV hydration and surgical services have been consulted. Patient is currently sitting comfortably in chair. At this time patient denies chest pain or shortness breath. Patient denies nausea vomiting or diarrhea. Patient denies any urinary burning or frequency. On 05/06/2021 patient was seen and examined on the medical floor she is alert and oriented 3 in no apparent distress she is denying any pain or any symptoms at this time, her blood pressure is 144/60 pulse 65 respiration 18 temperature 97.6 and pulse ox 90% on room air. Throughout last night, I received multiple calls regarding this patient for hematuria, possible cardiac arrhythmia. Actually the nurse called in the A team at 1:30 AM due to concern about hematur ia, CBC was done, hemoglobin is stable, at this point I discontinued Lovenox and ordered SCD stockings for DVT prophylaxis, urology consultation was requested in that regard to hematuria. The nurse also had concern regarding possible cardiac arrhythmia at some point during the last night heart rate was up to 162 then was mostly in the 50s and 60s throughout the night, cardiology consultation was requested in that regard. At this time patient seems to be stable she is receiving IV fluid, I will decrease the dose to 75 mL per hour and give 1 dose of IV Lasix due to some fine crackles in her bases. Otherwise we are awaiting intervention by GI or surgery for esophageal stricture. At this time patient is not able to take any pills, I have added hydralazine IV on a when necessary basis for elevated blood pressure. Will resume oral medication after esophageal dilatation. On 05/07/2021 patient is alert and oriented 3 resting comfortably in bed. Temp 98, heart rate 90, respiratory rate 16, blood pressure 147/80 95% on room air. Patient was evaluated by the urology service is minimal blood noted on UA no further workup inpatient per urology. Patient also currently being followed by cardiology services for atrial fibrillation. Awaiting surgical plan in regards to possible dilation of esophageal stricture. Patient is currently resting in bed with eyes chest pain or shortness breath. Patient denies nausea vomiting or diarrhea. Denies any urinary burning or frequency On 05/08/2021 patient was seen and examined on the medical floor she is alert and oriented in no apparent distress she is able to tolerate liquid diet well at this time we are awaiting EGD with possible dilatatian tomorrow. Patient denies any fever or chills no headache or dizziness no chest pain no shortness of breath no cough no nausea or vomiting no abdominal pain no diarrhea and no urinary symptoms Objective - Vital Signs Vital signs: Vital Signs Temp 97.8 F 05/08/21 14:00 Pulse 57 L 05/08/21 14:00 Resp 18 05/08/21 14:00 BP 136/78 05/08/21 14:00 Pulse Ox 99 05/08/21 14:00 Intake & Output 05/07/21 05/08/21 05/08/21 18:59 06:59 18:59 Output Total 200 100 Balance -200 -100 Weight 48.081 kg Output: Urine 200 100 Other: Voiding Method Bedside Commode Bedside Commode External Catheter Diaper Diaper External Catheter External Catheter - Exam In general patient is alert and oriented x 3 in no distress HEENT head normocephalic and atraumatic Neck is supple no JVD no goiter no lymphadenopathy no carotid bruit Chest examination reveals a few crackles in both lung bases no wheezing Cardiac exam reveals regular heart sounds S1 and S2 no gallops no murmurs Abdomen is soft nontender no organomegaly with normal bowel sounds Extremity exam reveals no edema no cyanosis or clubbing Neurological examination reveals no gross focal deficits - Labs CBC & Chem 7: 05/08/21 08:51 05/08/21 08:51 Labs: Abnormal Lab Results - Last 24 Hours (Table) 05/08/21 05/08/21 05/08/21 Range/Units 08:51 08:51 08:51 RBC 3.54 L (3.80-5.40) m/uL MCV 110.6 H D (80.0-100.0) fL MCHC 29.7 L (31.0-37.0) g/dL Macrocytosis Marked A Potassium 3.0 L (3.5-5.1) mmol/L Chloride 114 H (98-107) mmol/L Carbon Dioxide 19 L (22-30) mmol/L BUN 3 L (7-17) mg/dL Glucose 105 H (74-99) mg/dL Calcium 8.1 L (8.4-10.2) mg/dL Magnesium 1.5 L (1.6-2.3) mg/dL Assessment and Plan Assessment: 1. Poor oral intake with failure to thrive secondary to esophageal stricture 2. Patient recently underwent EGD. EGD revealing severe esophagitis with erosions and states involving the entirely mid and distal stoppages consistent with LAD grade C reflux esophagitis. Patient did have follow-up scheduled in early May 3. History of proximal atrial fibrillation. xarelto on hold. Maintained on Lovenox 4. History of CVA 5. History of type 2 diabetes mellitus 6. Hyperlipidemia. Maintained on statins 7. History of essential hypertension 8. Hypothyroidism 9. History of dementia 10. Hematuria per shift supervisor melting nurse, urology consultation requested. Patient w as evaluated by urology services. Minimum blood noted on UA. No further workup and patient 11. Episode of tachycardia with heart rate up to 162 with possible cardiac arrhythmia, cardiology consultation was requested DVT prophylaxis Lovenox. GI prophylaxis Protonix Surgical services have been consulted Cardiology services consulted Continue IV fluids
[2021-05-08] MEDS: LATANOPROST 0.005% OPHTH DROPS 2.5 ML BTL BOTH EYES SCH (20:32)
[2021-05-09] MEDS: POTASSIUM BICARBONATE/CIT AC 20 MEQ TABLET.EFF NG-TUBE SCH (00:03)
[2021-05-09 06:25] LABS: Basophils % (A) 0 %; Eosinophils # (A) 0.1 k/uL (0-0.7); Eosinophils % (A) 2 %; HCT 39.7 % (34.0-46.0); HGB 12.5 gm/dL (11.4-16.0); Hypochromasia Slight; Lymphocytes # (A) 2.1 k/uL (1.0-4.8); Lymphocytes % (A) 27 %; MCH 32.1 pg (25.0-35.0); MCHC 31.6 g/dL (31.0-37.0); Macrocytosis Slight; Mean Platelet Volume 7.6; Monocytes # (A) 0.4 k/uL (0-1.0); Monocytes % (A) 5 %; Neutrophils # (A) 4.9 k/uL (1.3-7.7); Neutrophils % (A) 65 %; Platelet Count 258 k/uL (150-450); RBC 3.91 m/uL (3.80-5.40); RDW 14.1 % (11.5-15.5); WBC 7.6 k/uL (3.8-10.6)
[2021-05-09 06:26] LABS: MCV 101.6 fL (80.0-100.0)
[2021-05-09 06:41] LABS: African American GFR (CKD) >90 (>60 ml/min/1.73 sqM); Anion Gap 5 mmol/L; Blood Urea Nitrogen 3 mg/dL (7-17); Calcium 8.5 mg/dL (8.4-10.2); Carbon Dioxide 24 mmol/L (22-30); Chloride 109 mmol/L (98-107); Glucose 90 mg/dL (74-99); Magnesium 1.9 mg/dL (1.6-2.3); Non-African American GFR(CKD) 89 (>60 ml/min/1.73 sqM); Potassium 3.8 mmol/L (3.5-5.1); Sodium 138 mmol/L (137-145)
[2021-05-09] MEDS: TIMOLOL 0.25% OPHTH DROPS 5 ML BTL BOTH EYES SCH (09:04)
[2021-05-09] MEDS: PANTOPRAZOLE 40 MG/10 ML VIAL IVP SCH ×2 (09:04→20:01)
[2021-05-09] MEDS: lisinopriL 5 MG TAB PO SCH (09:05)
[2021-05-09] MEDS: METOPROLOL SUCCINATE (ER) 25 MG TAB.ER.24H PO SCH (09:05)
--- NOTE | 2021-05-09 09:44 | P.PN ---
Subjective The patient is a pleasant 86-year-old female patient with a past medical history of esophageal stricture, esophagitits, gastritis, paroxysmal atrial fibrillation (patient on Xarelto 10mg at home), type 2 diabetes, hypertension, hyperlipidemia, TIA. She states she does not follow with a warehouse attendant. We are consulted for cardiac arrhythmia, which was initially PVCs, however, on 05/07/21 EKG revealed SVT vs. atrial flutter. Patient was started on Toprol XL. She was admitted from an extended care facility for further evaluation regarding symptoms of nausea and vomiting and failure to thrive. Upper GI endoscopy revealed pyloric stenosis. Her Xarelto has been held per surgery. Patient is seen and examined today at bedside. Clinically she denies any symptoms of chest pain or chest discomfort or shortness of breath. She denies any dizziness or lightheadedness or any feeling of heart racing or fluttering. The pressure seems to be within normal limits. Her xarelto continues to be held for possible upper endoscopy vs surgical intervention. Echocardiogram revealed EF of 4550%, LA severely dilated, mild aortic stenosis, mild aortic regurgitation, peak/mean gradient across aortic valve 22 mmHg/12 mmHg, mild to moderate mitral regurgitation, mild tricuspid regurgitation Telemetry reviewed, patient sinus mechanism this morning heart rate in the 60s, no further episodes of tachycardia She is currently maintained on lisinopril 5 mg daily, metoprolol succinate 25 mg daily, IV fluids Labs reveal WBC 7.6, hemoglobin 12.5, platelets 258, sodium 138, potassium 3.8, BUN 3, serum creatinine 0.4, magnesium 1.9 GENERAL: Frail, in no acute distress NECK: Supple without JVD or thyromegaly. LUNGS: Breath sounds clear to auscultation bilaterally. Respiration equal and unlabored. No wheezes, rales or rhonchi. HEART: Regular rate and rhythm, systolic ejection murmur at apex. No rubs or gallops. S1 and S2 heard. EXTREMITIES: Normal range of motion, no edema. No clubbing or cyanosis. Peripheral pulses intact. ASSESSMENT Symptoms of nausea and vomiting Decreased oral intake Paroxysmal atrial fibrillation with RVR [id number] score 4 History of esophageal stricture History of esophagitis History of gastritis History of hypertension Type 2 diabetes Hyperlipidemia History of TIA Hypokalemia PLAN Telemetry with no further episodes of tachycardia, patient maintaining sinus mechanism We will continue medical therapy with metoprolol succinate and lisinopril Xarelto continues to be on hold per surgery recommendations, restart the patient back on oral anticoagulation at 20mg daily once she is stable from the GI standpoint of view. We will follow the patient as needed. Recommend patient follow up outpatient with Dr. Zhao for further management. Nurse Practitioner note has been reviewed, I agree with a documented findings and plan of care. Patient was seen and examined. Objective - Vital Signs Vital signs: Vital Signs Temp 98.3 F 05/09/21 08:24 Pulse 66 05/09/21 08:24 Resp 18 05/09/21 08:24 BP 159/73 05/09/21 08:24 Pulse Ox 98 05/09/21 08:24 Intake & Output 05/08/21 05/09/21 05/09/21 18:59 06:59 18:59 Intake Total 580 Output Total 400 1600 Balance 180 -1600 Weight 48.081 kg Intake: Oral 580 Output: Urine 400 1600 Stool 0 Other: Voiding Method External Catheter External Catheter # Voids 4 # Bowel Movements 0 - Labs CBC & Chem 7: 05/09/21 05:59 05/09/21 05:59 Labs: Abnormal Lab Results - Last 24 Hours (Table) 05/08/21 05/08/21 05/08/21 Range/Units 08:51 08:51 08:51 RBC 3.54 L (3.80-5.40) m/uL MCV 110.6 H D (80.0-100.0) fL MCHC 29.7 L (31.0-37.0) g/dL Macrocytosis Marked A Potassium 3.0 L (3.5-5.1) mmol/L Chloride 114 H (98-107) mmol/L Carbon Dioxide 19 L (22-30) mmol/L BUN 3 L (7-17) mg/dL Creatinine (0.52-1.04) mg/dL Glucose 105 H (74-99) mg/dL Calcium 8.1 L (8.4-10.2) mg/dL Magnesium 1.5 L (1.6-2.3) mg/dL 05/08/21 05/09/21 05/09/21 Range/Units 19:12 05:59 05:59 RBC (3.80-5.40) m/uL MCV 101.6 H D (80.0-100.0) fL MCHC (31.0-37.0) g/dL Macrocytosis Potassium 3.0 L (3.5-5.1) mmol/L Chloride 109 H (98-107) mmol/L Carbon Dioxide (22-30) mmol/L BUN 3 L (7-17) mg/dL Creatinine 0.48 L (0.52-1.04) mg/dL Glucose (74-99) mg/dL Calcium (8.4-10.2) mg/dL Magnesium (1.6-2.3) mg/dL
[2021-05-09] MEDS ORDERED: PROPOFOL 10 MG/ML 20 ML VIAL IV ONE (16:20)
--- NOTE | 2021-05-09 16:53 | P.OP ---
Date of Procedure: 05/09/21 Preoperative Diagnosis: Gastric outlet obstruction Postoperative Diagnosis: Gastric outlet obstruction Procedure(s) Performed: EGD Anesthesia: MAC Surgeon: Zoran Leos Pathology: none sent Condition: stable Disposition: PACU Description of Procedure: The patient's placed on the endoscopy table in the lateral position. She received IV sedation. The gastroscope placed oropharynx passed in the esophagus and stomach. The antrum was visualized. There was no obvious ulceration. However the pylorus was very tightly scarred. There was a pinpoint opening of the pylorus. At this point scope was retroflexed the meters stomach appeared normal. There was a small hiatal hernia. The GE junction was at 40 cm the distal esophagus appeared minimally inflamed. Proximal esophagus appeared normal. Scope withdrawn for patient. Summary findings patient has a history of obstruction due to pyloric outlet scarring.
[2021-05-09] MEDS ORDERED: IV FLUID CONTINUATION 1,000 ML IV ONE (17:03)
[2021-05-09] MEDS: LATANOPROST 0.005% OPHTH DROPS 2.5 ML BTL BOTH EYES SCH (20:01)
[2021-05-10] MEDS ORDERED: DEXAMETHASONE SOD PHOSPHATE 4 MG/ML 1 ML VIAL IV ONE (08:22)
[2021-05-10] MEDS ORDERED: ONDANSETRON 4 MG/2 ML VIAL IVP ONE (08:22)
[2021-05-10] MEDS: lisinopriL 5 MG TAB PO SCH (08:25)
[2021-05-10] MEDS: METOPROLOL SUCCINATE (ER) 25 MG TAB.ER.24H PO SCH (08:25)
[2021-05-10] MEDS: PANTOPRAZOLE 40 MG/10 ML VIAL IVP SCH (08:26)
[2021-05-10 09:18] LABS: Basophils # (A) 0.03 X 10*3/uL (0.00-0.10); Basophils % (A) 0.5 %; Eosinophils # (A) 0.11 X 10*3/uL (0.04-0.35); Eosinophils % (A) 1.7 %; HCT 34.8 % (37.2-46.3); HGB 10.9 g/dL (12.0-15.0); Immature Grans, Automated 0.2 %; Lymphocytes # (A) 1.86 X 10*3/uL (0.90-5.00); Lymphocytes % (A) 28.5 %; MCH 31.5 pg (27.0-32.0); MCHC 31.3 g/dL (32.0-37.0); MCV 100.6 fL (80.0-97.0); Mean Platelet Volume 10.6 fL (9.5-12.2); Monocytes % (A) 7.7 %; NRBC Per 100 WBC 0 /100 WBCS (0.0-0.0); Neutrophils # (A) 4.01 X 10*3/uL (1.80-7.70); Neutrophils % (A) 61.4 %; Platelet Count 216 X 10*3/uL (140-440); RBC 3.46 X 10*6/uL (4.10-5.20); RDW 13.8 % (11.5-14.5); WBC 6.52 X 10*3/uL (4.50-10.00)
[2021-05-10 09:30] LABS: African American GFR (CKD) 101.6 (60.0-200.0); Albumin/Globulin Ratio 1.5 (1.60-3.17); Anion Gap 11.9 mmol/L (10.00-18.00); BUN/Creat Ratio 7.8 Ratio (12.00-20.00); Blood Urea Nitrogen 3.9 mg/dL (9.0-27.0); Calcium 8.6 mg/dL (8.7-10.3); Carbon Dioxide 23.1 mmol/L (20.0-27.5); Non-African American GFR(CKD) 87.6 (60.0-200.0); Potassium 3.6 mmol/L (3.5-5.5); Total Bilirubin 0.3 mg/dL (0.30-1.20)
--- NOTE | 2021-05-10 10:55 | P.PN ---
Subjective Progress Note Date: 05/10/21 Prerna Hyde, is a 86-year-old female patient who was sent to ER from [facility] with concerns of dehydration and failure to thrive. Patient has a known past medical history of esophageal strictures. Patient is scheduled pain for pyloric dilation and early May but over the past 2 weeks patient has lost 10 pounds and had increasing vomiting and unable to keep fluids down. Additional medical history includes CVA, diabetes mellitus, high disorder, GERD, hyperlipidemia, hypertension, thyroid disorder, dementia, anxiety and depression. Chest x-ray was completed showing no acute process. This time patient will be admitted patient initiated on IV hydration and surgical services have been consulted. Patient is currently sitting comfortably in chair. At this time patient denies chest pain or shortness breath. Patient denies nausea vomiting or diarrhea. Patient denies any urinary burning or frequency. On 05/06/2021 patient was seen and examined on the medical floor she is alert and oriented 3 in no apparent distress she is denying any pain or any symptoms at this time, her blood pressure is 144/60 pulse 65 respiration 18 temperature 97.6 and pulse ox 90% on room air. Throughout last night, I received multiple calls regarding this patient for hematuria, possible cardiac arrhythmia. Actually the nurse called in the A team at 1:30 AM due to concern about hematur ia, CBC was done, hemoglobin is stable, at this point I discontinued Lovenox and ordered SCD stockings for DVT prophylaxis, urology consultation was requested in that regard to hematuria. The nurse also had concern regarding possible cardiac arrhythmia at some point during the last night heart rate was up to 162 then was mostly in the 50s and 60s throughout the night, cardiology consultation was requested in that regard. At this time patient seems to be stable she is receiving IV fluid, I will decrease the dose to 75 mL per hour and give 1 dose of IV Lasix due to some fine crackles in her bases. Otherwise we are awaiting intervention by GI or surgery for esophageal stricture. At this time patient is not able to take any pills, I have added hydralazine IV on a when necessary basis for elevated blood pressure. Will resume oral medication after esophageal dilatation. On 05/07/2021 patient is alert and oriented 3 resting comfortably in bed. Temp 98, heart rate 90, respiratory rate 16, blood pressure 147/80 95% on room air. Patient was evaluated by the urology service is minimal blood noted on UA no further workup inpatient per urology. Patient also currently being followed by cardiology services for atrial fibrillation. Awaiting surgical plan in regards to possible dilation of esophageal stricture. Patient is currently resting in bed with eyes chest pain or shortness breath. Patient denies nausea vomiting or diarrhea. Denies any urinary burning or frequency On 05/08/2021 patient was seen and examined on the medical floor she is alert and oriented in no apparent distress she is able to tolerate liquid diet well at this time we are awaiting EGD with possible dilatatian tomorrow. Patient denies any fever or chills no headache or dizziness no chest pain no shortness of breath no cough no nausea or vomiting no abdominal pain no diarrhea and no urinary symptoms On 05/09/2021 patient is alert and oriented. Patient to undergo EGD today with Dr. Leos. Patient denies chest pain or shortness breath. Patient denies nausea vomiting or diarrhea. Patient denies any urinary burning or frequency On 05/10/2022 2 patient alert and oriented sitting comfortably in chair. Patient did undergo EGD yesterday without dilation. Plans for EGD with dilation today per GI services. Patient denies chest pain or shortness of breath. Patient denies nausea vomiting or diarrhea. Patient denies any urinary burning or frequency Objective - Vital Signs Vital signs: Vital Signs Temp 97.9 F 05/10/21 08:24 Pulse 62 05/10/21 08:24 Resp 18 05/10/21 08:24 BP 158/65 05/10/21 08:24 Pulse Ox 98 05/10/21 08:24 Intake & Output 05/09/21 05/10/21 05/10/21 18:59 06:59 18:59 Intake Total 200 Output Total 400 1500 Balance -200 -1500 Intake: IV 200 Output: Urine 400 1500 Other: Voiding Method External Catheter External Catheter # Voids 1 - Exam In general patient is alert and oriented x 3 in no distress HEENT head normocephalic and atraumatic Neck is supple no JVD no goiter no lymphadenopathy no carotid bruit Chest examination reveals a few crackles in both lung bases no wheezing Cardiac exam reveals regular heart sounds S1 and S2 no gallops no murmurs Abdomen is soft nontender no organomegaly with normal bowel sounds Extremity exam reveals no edema no cyanosis or clubbing Neurological examination reveals no gross focal deficits - Labs CBC & Chem 7: 05/10/21 05:57 05/10/21 05:57 Labs: Abnormal Lab Results - Last 24 Hours (Table) 05/10/21 05/10/21 Range/Units 05:57 05:57 RBC 3.46 L (4.10-5.20) X 10*6/uL Hgb 10.9 L (12.0-15.0) g/dL Hct 34.8 L (37.2-46.3) % MCV 100.6 H (80.0-97.0) fL MCHC 31.3 L (32.0-37.0) g/dL BUN 3.9 L (9.0-27.0) mg/dL Creatinine 0.5 L (0.6-1.5) mg/dL BUN/Creatinine Ratio 7.80 L (12.00-20.00) Ratio Calcium 8.6 L (8.7-10.3) mg/dL ALT 7 L (8-44) U/L Total Protein 5.0 L (6.2-8.2) g/dL Albumin 3.0 L (3.8-4.9) g/dL Albumin/Globulin Ratio 1.50 L (1.60-3.17) g/dL Assessment and Plan Assessment: 1. Poor oral intake with failure to thrive secondary to esophageal stricture 2. Patient recently underwent EGD. EGD revealing severe esophagitis with erosions and states involving the entirely mid and distal stoppages consistent with LAD grade C reflux esophagitis. Patient did have follow-up scheduled in early May 3. History of proximal atrial fibrillation. xarelto on hold. Maintained on Lovenox 4. History of CVA 5. History of type 2 diabetes mellitus 6. Hyperlipidemia. Maintained on statins 7. History of essential hypertension 8. Hypothyroidism 9. History of dementia 10. Hematuria per operating room specialist nurse, urology consultation requested. Patient was evaluated by urology services. Minimum blood noted on UA. No further workup and patient 11. Episode of tachycardia with heart rate up to 162 with possible cardiac arrhythmia, cardiology consultation was requested. Per cardiology continue Lopressor and lisinopril. Patient to being restarted back on oral anticoagulation at 20 mg daily once stable from GI standpoint DVT prophylaxis Lovenox. GI prophylaxis Protonix Surgical services have been consulted Cardiology services consulted Status post EGD on 05/09/2021 Repeat EGD with dilation stay per GI services Continue IV fluids
[2021-05-10] MEDS: TIMOLOL 0.25% OPHTH DROPS 5 ML BTL BOTH EYES SCH (10:59)
[2021-05-10] MEDS: LACTATED RINGERS 1,000 ML IV SCH (10:59)
--- NOTE | 2021-05-10 11:25 | P.CONS ---
History of Present Illness - Reason for Consult Consult date: 05/10/21 gastric outlet obstruction Requesting physician: Melissa Leiva - Chief Complaint Difficulty swallowing - History of Present Illness This is a 86-year-old female who came into the emergency department on 05/04/2021 for difficulty eating and a approximately 10 pound weight loss over the last 2-3 weeks duration. Patient had been seen by Dr. Torres and had an EGD done on 03/10/2021 that showed severe esophagitis with erosions and exudates involving the entire mid and distal esophagus consistent with LA grade C reflux esophagitis, pyloric stenosis, and mucosal erythema trial idiopathic antrum consistent with gastritis as well as a small hiatal hernia. The patient was roach pposed to follow-up with Dr. Torres outpatient if she continued to have difficulty swallowing with persistent nausea and vomiting Dr. Torres was going to consider repeat EGD with pyloric dilation. Patient states she cannot remember if she had seen Dr. Torres. Patient also states she cannot remember why she came to the hospital. She does state that she is able to drink liquids and soft foods such as puddings, mashed potatoes, and oatmeal. She has a difficult time swallowing any solids and when she swallows that she vomits it back up. During this hospitalization the patient underwent an EGD yesterday with Dr. Leos with findings of gastric outlet obstruction. Patient is scheduled today to undergo pyloromyotomy. Review of Systems REVIEW OF SYSTEMS: CARDIOPULMONARY: No chest pain or shortness of breath. Gastrointestinal: No abdominal pain. No nausea, vomiting with food. Able to tolerate liquids and soft foods. No hematemesis, coffee-ground emesis. No rectal bleeding, or melena. Patient states lost approximately 10 pounds in the last 1 month duration. GENITOURINARY: No dysuria or hematuria. MUSCULOSKELETAL: Reports normal range of motion., Joint pain. SKIN: No rashes. No jaundice. ENDOCRINE: No chills, fevers. No polydipsia or polyuria. PSYCHIATRIC: Unremarkable. NEUROLOGY: No change in mental status. Denies dizziness, headache. ENT: Vision unremarkable. CONSTITUTIONAL: No recent weight loss. No fever, chills, night sweats. Past Medical History Past Medical History: Cancer, CVA/TIA, Diabetes Mellitus, Eye Disorder, GERD/Reflux, Hyperlipidemia, Hypertension, Osteoarthritis (OA), Thyroid Disorder Additional Past Medical History / Comment(s): HX: DM, NO RX SINCE WGT LOSS. SCOLIOSIS, BACK PAIN. SKIN CA, MULT. CVA, SL generalized weakness residual, TIA 04/2013 (pt/francisco j think she has a couple). Irregular heart beat OCC, Bradycardia at times, MINOR HEART MURMUR. GLAUCOMA. LT HIP FX 10/2017, HAS IRRITATING HARDWARE NOW. History of Any Multi-Drug Resistant Organisms: None Reported Past Surgical History: Hysterectomy Additional Past Surgical History / Comment(s): Colonoscopies w/ polypectomy- benign. MAIRA CATARACTS. Epidural INJ Lumbar Spine, LAST 10/07/17. 10/22/17 ORIF LT HIP. Past Anesthesia/Blood Transfusion Reactions: No Reported Reaction Past Psychological History: Anxiety, Depression Additional Psychological History / Comment(s): Pt from [facility] Smoking Status: Never smoker Past Alcohol Use History: None Reported Past Drug Use History: None Reported - Past Family History Son(s) Family Medical History: Deep Vein Thrombosis (DVT) Father Family Medical History: Coronary Artery Disease (CAD), Myocardial Infarction (RI) Additional Family Medical History / Comment(s): Father of RI-pt unsure what age,. Mother Family Medical History: CVA/TIA Medications and Allergies Home Medications Medication Instructions Recorded Confirmed Type Cholecalciferol [Vitamin D3 (25 25 mcg PO DAILY@79910/02/13 05/04/21 History Mcg = 1000 Iu)] Aspirin EC [Ecotrin Low Dose] 81 mg PO DAILY@79912/23/15 05/04/21 History rOPINIRole HCL [Requip] 3 mg PO HS@209912/23/15 05/04/21 History timoloL maleate [Timolol Maleate] 1 drop BOTH EYES DAILY@79912/23/15 05/04/21 History Donepezil HCl [Aricept] 5 mg PO HS@209910/15/17 05/04/21 History Ferrous Sulfate [Iron (65 MG 325 mg PO DAILY@79912/25/17 05/04/21 History Elemental)] Latanoprost Ophth [Xalatan 0.005%] 1 drop BOTH EYES HS@209912/25/17 05/04/21 History Potassium Chloride ER [K-Dur 10] 10 meq PO DAILY@1700 12/25/17 05/04/21 History lisinopriL [Prinivil] 5 mg PO DAILY@0800 12/30/17 05/04/21 History Loperamide HCl [Imodium A-D] 2 - 4 mg PO QID PRN 02/14/21 05/04/21 History Menthol [Biofreeze] 1 applic TOPICAL BID PRN 02/14/21 05/04/21 History Rivaroxaban [Xarelto] 10 mg PO DAILY@0800 02/14/21 05/04/21 History Rosuvastatin Calcium [Crestor] 5 mg PO HS@2100 02/14/21 05/04/21 History guaiFENesin [guaiFENesin Oral 100 mg PO Q4H PRN 02/14/21 05/04/21 History Solution] Ensure Clear 237 ml PO TID@0800,1200,1700 03/08/21 05/04/21 History Levothyroxine Sodium [Synthroid] 25 mcg PO DAILY@0800 03/08/21 05/04/21 History Magnesium Hydroxide [Milk of 7,200 mg PO Q48H PRN 03/08/21 05/04/21 History Magnesia Concentrate] Mirtazapine [Remeron] 30 mg PO HS@2100 03/08/21 05/04/21 History Na Phos,M-B/Na Phos,Di-Ba [Fleet 133 ml RECTAL DAILY PRN 03/08/21 05/04/21 History Adult] Sennosides [Senna] 17.2 mg PO HS@2100 03/08/21 05/04/21 History bisacodyL [Dulcolax] 10 mg RECTAL DAILY PRN 03/08/21 05/04/21 History Acetaminophen Tab [Tylenol] 650 mg PO Q6HR PRN tab 03/10/21 05/04/21 Rx HYDROcodone/APAP 7.5-325MG [[place] 1 tab PO Q4H PRN #4 tab 03/10/21 05/04/21 Rx 7.5-325] Pantoprazole [Protonix] 40 mg PO BID@0800,1700 05/04/21 05/04/21 History Allergies Allergy/AdvReac Type Severity Reaction Status Date / Time No Known Allergies Allergy Verified 03/08/21 07:29 Physical Exam Vitals: Vital Signs Temp Pulse Resp BP Pulse Ox 05/10/21 08:24 97.9 F 62 18 158/65 98 05/10/21 02:00 99 F 59 L 18 152/62 99 05/09/21 19:43 97.6 F 98 18 169/77 94 L 05/09/21 18:56 98.0 F 88 14 157/77 100 05/09/21 14:00 98.0 F 88 14 157/77 100 05/09/21 12:55 66 18 Intake and Output 05/09/21 05/10/21 05/10/21 22:59 06:59 14:59 Intake Total 200 Output Total 400 1500 Balance -200 -1500 Intake: IV 200 Output: Urine 400 1500 Other: Voiding Method External Catheter # Voids 1 General appearance: The patient is alert, oriented, appears in no acute distress. HET: Head is normocephalic and atraumatic. Conjunctiva pink. Sclera anicteric. Neck: Supple without lymphadenopathy. Trachea midline. Heart: S1 S2. Regular rate and rhythm. Lungs: Clear to auscultation. Abdomen: Soft, thin, nontender, nondistended with bowel sounds. No guarding or rigidity. Skin: No rashes. No jaundice. Extremities: Normal skin color and turgor. No pedal edema. Neurological: No focal deficits. Alert and oriented x3. Results CBC & Chem 7: 05/10/21 05:57 05/10/21 05:57 Assessment and Plan (1) Dysphagia Narrative/Plan: 86-year-old female who was admitted to the hospital with complaints of difficulty with swallowing and approximately 10 pound weight loss over the last 1 month duration. She was seen by general surgery and underwent an EGD yesterday with Dr. Cordon showing gastric outlet obstruction. She is scheduled today for Pyloromyotomy with Dr. Leos. Patient had an EGD done by Dr. Torres on 03/10/2021 that showed severe esophagitis with erosions and exudates involving entire mid and distal esophagus consistent with LA grade C reflux esophagitis, pyloric stenosis, mucosal erythema and friable idiopathic antrum c onsistent with gastritis, as well as a small hiatal hernia. The patient was supposed follow-up with Dr. Torres she continued to have difficulty with swallowing or nausea and vomiting. Patient states she does not recall if she followed up with doctor tomorrow. Pathology showed evidence of mild chronic gastritis. Continue Protonix daily. Current Visit: Yes Status: Acute Code(s): R13.10 - DYSPHAGIA, UNSPECIFIED SNOMED Code(s): 67268451 (2) Pyloric stenosis in adult Narrative/Plan: Patient had already been seen by general surgery and underwent EGD yesterday and today underwent a distal antrectomy with loop gastro-jejunostomy Current Visit: Yes Status: Acute Code(s): K31.1 - ADULT HYPERTROPHIC PYLORIC STENOSIS SNOMED Code(s): 241118321 Plan: 1. Continue symptomatic and supportive care 2. Continue Protonix 40 mg twice a day 3. Patient is status post EGD with Dr. Leos 4. No plans at this time by gastroenterology as patient is already scheduled and undergoing Pyloromyotomy with Dr. Leos today Thank you for this consultation, we will continue to monitor. Dr. Luis Torres I agree with the dictator's note, documented as a scribe by Kavita Cuadra.
[2021-05-10] MEDS ORDERED: IV FLUID CONTINUATION 500 ML IV ONE (12:15)
[2021-05-10] MEDS ORDERED: HEPARIN SODIUM,PORCINE 5,000 UNIT/ML 1 ML VIAL SQ ONE (12:27)
[2021-05-10] MEDS ORDERED: HEPARIN SODIUM,PORCINE/PF 5,000 UNIT/0.5 ML SYRINGE SQ ONE (12:28)
[2021-05-10] MEDS ORDERED: SUCCINYLCHOLINE CHLORIDE 100 MG/5 ML SYR IV ONE (12:50)
[2021-05-10] MEDS ORDERED: ePHEDrine 50 MG/ML 1 ML AMP ONE (12:50)
[2021-05-10] MEDS ORDERED: PHENYLEPHRINE-0.9% NACL SYG 1,000 MCG/10 ML SYRINGE ONE (12:50)
[2021-05-10] MEDS ORDERED: NEOSTIGMINE 1 MG/ML 10 ML VIAL ONE (12:50)
[2021-05-10] MEDS ORDERED: fentaNYL (PF) 50 MCG/ML 2 ML AMP ONE (12:50)
[2021-05-10] MEDS ORDERED: LIDOCAINE 1% INJ 10MG/ML (20 ML MDV) ONE (12:50)
[2021-05-10] MEDS ORDERED: ROCURONIUM 10 MG/ML (5 ML VIAL) IV ONE (12:50)
[2021-05-10] MEDS ORDERED: PROPOFOL 10 MG/ML 20 ML VIAL IV ONE (12:50)
[2021-05-10] MEDS ORDERED: GLYCOPYRROLATE 0.2 MG/ML 2 ML VIAL ONE (12:50)
[2021-05-10] MEDS ORDERED: ONDANSETRON 4 MG/2 ML VIAL IVP PRN (14:05)
[2021-05-10] MEDS ORDERED: METOCLOPRAMIDE 5 MG/ML 2 ML VIAL IVP PRN (14:05)
[2021-05-10] MEDS ORDERED: NALOXONE 0.4 MG/ML 1 ML VIAL IV PRN (14:05)
--- NOTE | 2021-05-10 14:05 | P.OP ---
Date of Procedure: 05/10/21 Preoperative Diagnosis: Gastric outlet obstruction Postoperative Diagnosis: Gastrointestinal obstruction secondary to pyloric thickening Procedure(s) Performed: Distal antrectomy with loop gastro-jejunostomy Anesthesia: LESLI Surgeon: Zoran Leos Estimated Blood Loss (ml): 25 Pathology: other (Antrum) Condition: stable Disposition: PACU Description of Procedure: Patient's placed on the operative table in the supine position. She received general and transected as a. Her abdomen was prepped with sterile fashion. There was a entered through midline incision. The stomach appeared to be slightly dilated. At the level of the pylorus there appeared to be an obstruction. The pylorus was thickening. The obstruction appeared to have a benign appearance. At this point decided to a distal gastrectomy to excise the area of the obstructing pylorus. The duodenum was divided using the GI stapler. And then using the Enseal device the mesentery the stomach was divided. The antrum was then divided using the GI stapler. A loop of jejunum was brought up and a loop gastrojejunostomy was performed using the MIREILLE and TA stapler. The 3- 0 GI silk suture was used for a crotch stitch. There was a large lumen between the stomach and the small bowel. The fascia was then closed. There was a nodule on the fascia which was sent to pathology. A severely appeared to be calcified. The fascia closed loop #1. Skin was closed zeke. Patient tolerated procedure well. She was sent back to recovery room stable condition.
[2021-05-10] MEDS: fentaNYL (PF) 50 MCG/ML 2 ML AMP IV PRN ×3 (14:15→14:44)
[2021-05-10] MEDS: hydrALAZINE HCL 20 MG/ML 1 ML VIAL IVP PRN (14:55)
[2021-05-10] MEDS: HYDROmorphone 0.5 MG/0.5 ML SYRINGE IVP PRN ×2 (15:06→20:38)
[2021-05-10] MEDS ORDERED: SODIUM CHLORIDE 0.9% 1,000 ML IV ONE (15:21)
[2021-05-10] MEDS: D5-0.45% NACL WITH KCL 20MEQ/L 1,000 ML IV SCH (15:43)
[2021-05-10] MEDS: HEPARIN SODIUM,PORCINE/PF 5,000 UNIT/0.5 ML SYRINGE SQ SCH (20:39)
[2021-05-10] MEDS: LATANOPROST 0.005% OPHTH DROPS 2.5 ML BTL BOTH EYES SCH (20:39)
[2021-05-11] MEDS: D5-0.45% NACL WITH KCL 20MEQ/L 1,000 ML IV SCH ×4 (02:29→22:18)
[2021-05-11] MEDS: HYDROmorphone 0.5 MG/0.5 ML SYRINGE IVP PRN ×2 (03:16→10:10)
[2021-05-11 08:09] LABS: ALT 9 U/L (4-34); African American GFR (CKD) >90 (>60 ml/min/1.73 sqM); Albumin/Globulin Ratio 0.9; Anion Gap 5 mmol/L; Blood Urea Nitrogen 11 mg/dL (7-17); Calcium 8.4 mg/dL (8.4-10.2); Carbon Dioxide 21 mmol/L (22-30); Chloride 110 mmol/L (98-107); Globulin 2.7 g/dL; Glucose 183 mg/dL (74-99); Non-African American GFR(CKD) 79 (>60 ml/min/1.73 sqM); Sodium 136 mmol/L (137-145); Total Bilirubin 0.6 mg/dL (0.2-1.3)
[2021-05-11 08:10] LABS: AST 29 U/L (14-36); Albumin 2.4 g/dL (3.5-5.0); Alkaline Phosphatase 43 U/L (38-126); Potassium 4.7 mmol/L (3.5-5.1); Total Protein 5.1 g/dL (6.3-8.2)
[2021-05-11 08:16] LABS: Basophils % (A) 0 %; Eosinophils % (A) 0 %; HCT 34.7 % (34.0-46.0); HGB 11.3 gm/dL (11.4-16.0); Lymphocytes # (A) 1.4 k/uL (1.0-4.8); Lymphocytes % (A) 13 %; MCHC 32.6 g/dL (31.0-37.0); MCV 101.1 fL (80.0-100.0); Macrocytosis Slight; Mean Platelet Volume 10.6; Monocytes # (A) 0.9 k/uL (0-1.0); Monocytes % (A) 8 %; Neutrophils # (A) 8.7 k/uL (1.3-7.7); Neutrophils % (A) 78 %; Platelet Count 146 k/uL (150-450); RBC 3.43 m/uL (3.80-5.40); RDW 13.8 % (11.5-15.5); WBC 11.2 k/uL (3.8-10.6)
[2021-05-11] MEDS: lisinopriL 5 MG TAB PO SCH (08:42)
[2021-05-11] MEDS: METOPROLOL SUCCINATE (ER) 25 MG TAB.ER.24H PO SCH (08:42)
[2021-05-11] MEDS: PANTOPRAZOLE 40 MG/10 ML VIAL IV SCH (08:46)
[2021-05-11] MEDS: HEPARIN SODIUM,PORCINE/PF 5,000 UNIT/0.5 ML SYRINGE SQ SCH ×2 (08:46→22:17)
[2021-05-11] MEDS: TIMOLOL 0.25% OPHTH DROPS 5 ML BTL BOTH EYES SCH (08:47)
--- NOTE | 2021-05-11 12:36 | P.PN ---
Subjective Progress Note Date: 05/11/21 Prerna Hyde, is a 86-year-old female patient who was sent to ER from [facility] with concerns of dehydration and failure to thrive. Patient has a known past medical history of esophageal strictures. Patient is scheduled pain for pyloric dilation and early May but over the past 2 weeks patient has lost 10 pounds and had increasing vomiting and unable to keep fluids down. Additional medical history includes CVA, diabetes mellitus, high disorder, GERD, hyperlipidemia, hypertension, thyroid disorder, dementia, anxiety and depression. Chest x-ray was completed showing no acute process. This time patient will be admitted patient initiated on IV hydration and surgical services have been consulted. Patient is currently sitting comfortably in chair. At this time patient denies chest pain or shortness breath. Patient denies nausea vomiting or diarrhea. Patient denies any urinary burning or frequency. On 05/06/2021 patient was seen and examined on the medical floor she is alert and oriented 3 in no apparent distress she is denying any pain or any symptoms at this time, her blood pressure is 144/60 pulse 65 respiration 18 temperature 97.6 and pulse ox 90% on room air. Throughout last night, I received multiple calls regarding this patient for hematuria, possible cardiac arrhythmia. Actually the nurse called in the A team at 1:30 AM due to concern about hematur ia, CBC was done, hemoglobin is stable, at this point I discontinued Lovenox and ordered SCD stockings for DVT prophylaxis, urology consultation was requested in that regard to hematuria. The nurse also had concern regarding possible cardiac arrhythmia at some point during the last night heart rate was up to 162 then was mostly in the 50s and 60s throughout the night, cardiology consultation was requested in that regard. At this time patient seems to be stable she is receiving IV fluid, I will decrease the dose to 75 mL per hour and give 1 dose of IV Lasix due to some fine crackles in her bases. Otherwise we are awaiting intervention by GI or surgery for esophageal stricture. At this time patient is not able to take any pills, I have added hydralazine IV on a when necessary basis for elevated blood pressure. Will resume oral medication after esophageal dilatation. On 05/07/2021 patient is alert and oriented 3 resting comfortably in bed. Temp 98, heart rate 90, respiratory rate 16, blood pressure 147/80 95% on room air. Patient was evaluated by the urology service is minimal blood noted on UA no further workup inpatient per urology. Patient also currently being followed by cardiology services for atrial fibrillation. Awaiting surgical plan in regards to possible dilation of esophageal stricture. Patient is currently resting in bed with eyes chest pain or shortness breath. Patient denies nausea vomiting or diarrhea. Denies any urinary burning or frequency On 05/08/2021 patient was seen and examined on the medical floor she is alert and oriented in no apparent distress she is able to tolerate liquid diet well at this time we are awaiting EGD with possible dilatatian tomorrow. Patient denies any fever or chills no headache or dizziness no chest pain no shortness of breath no cough no nausea or vomiting no abdominal pain no diarrhea and no urinary symptoms On 05/09/2021 patient is alert and oriented. Patient to undergo EGD today with Dr. Leos. Patient denies chest pain or shortness breath. Patient denies nausea vomiting or diarrhea. Patient denies any urinary burning or frequency On 05/10/2021 patient alert and oriented sitting comfortably in chair. Patient did undergo EGD yesterday without dilation. Plans for EGD with dilation today per GI services. Patient denies chest pain or shortness of breath. Patient denies nausea vomiting or diarrhea. Patient denies any urinary burning or frequency. On 05/11/2021 patient was seen and examined on the medical floor she is alert and oriented 3 in no apparent distress she underwent surgery with Dr. Leos yesterday, patient had distal antrectomy with loop gastro-jejunostomy, today she is doing well she is sitting up in a chair she has an NG tube in, she is awaiting PICC line placement to start TPN, vital exam reveals a temperature of 98.2 pulse 69 respiration 18 blood pressure 139/68. White blood count 11.2 hemoglobin 11.3 platelet count 146 BUN 11 creatinine 0.7 Objective - Vital Signs Vital signs: Vital Signs Temp 97.9 F 05/11/21 07:58 Pulse 55 L 05/11/21 07:58 Resp 14 05/11/21 07:58 BP 131/69 05/11/21 07:58 Pulse Ox 100 05/11/21 02:00 Intake & Output 05/10/21 05/11/21 05/11/21 18:59 06:59 18:59 Intake Total 650 Output Total 1275 150 Balance -625 -150 Weight 48.081 kg Intake: IV 650 Oral 0 Output: Urine 1250 150 Estimated Blood Loss 25 Other: Voiding Method External Catheter Indwelling Catheter - Exam In general patient is alert and oriented x 3 in no distress HEENT head normocephalic and atraumatic Neck is supple no JVD no goiter no lymphadenopathy no carotid bruit Chest examination reveals a few crackles in both lung bases no wheezing Cardiac exam reveals regular heart sounds S1 and S2 no gallops no murmurs Abdomen is soft nontender no organomegaly with normal bowel sounds Extremity exam reveals no edema no cyanosis or clubbing Neurological examination reveals no gross focal deficits - Labs CBC & Chem 7: 05/11/21 06:32 05/11/21 06:32 Labs: Abnormal Lab Results - Last 24 Hours (Table) 05/11/21 05/11/21 Range/Units 06:32 06:32 WBC 11.2 H (3.8-10.6) k/uL RBC 3.43 L (3.80-5.40) m/uL Hgb 11.3 L (11.4-16.0) gm/dL MCV 101.1 H (80.0-100.0) fL Plt Count 146 L (150-450) k/uL Neutrophils # 8.7 H (1.3-7.7) k/uL Sodium 136 L (137-145) mmol/L Chloride 110 H (98-107) mmol/L Carbon Dioxide 21 L (22-30) mmol/L Glucose 183 H (74-99) mg/dL Total Protein 5.1 L (6.3-8.2) g/dL Albumin 2.4 L (3.5-5.0) g/dL Assessment and Plan Assessment: 1. Poor oral intake with failure to thrive secondary to gastric outlet obstruction patient underwent Distal antrectomy with loop gastro-jejunostomy on 05/10/2021 2. Patient recently underwent EGD. EGD revealing severe esophagitis with erosi ons and states involving the entirely mid and distal stoppages consistent with LAD grade C reflux esophagitis. Patient did have follow-up scheduled in early May 3. History of proximal atrial fibrillation. xarelto on hold. Maintained on Lovenox 4. History of CVA 5. History of type 2 diabetes mellitus 6. Hyperlipidemia. Maintained on statins 7. History of essential hypertension 8. Hypothyroidism 9. History of dementia 10. Hematuria per auditing coder nurse, urology consultation requested. Patient was evaluated by urology services. Minimum blood noted on UA. No further wo rkup and patient 11. Episode of tachycardia with heart rate up to 162 with possible cardiac arrhythmia, cardiology consultation was requested. Per cardiology continue Lopressor and lisinopril. Patient to being restarted back on oral anticoagulation at 20 mg daily once stable from GI standpoint DVT prophylaxis Lovenox. GI prophylaxis Protonix Surgical services have been consulted Cardiology services consulted Status post EGD on 05/09/2021 Repeat EGD with dilation stay per GI services Continue IV fluids
--- NOTE | 2021-05-11 13:10 | P.PN ---
Subjective Progress Note Date: 05/11/21 CHIEF COMPLAINT: Nausea and vomiting HISTORY OF PRESENT ILLNESS: Patient is status post Distal antrectomy with loop gastro-jejunostomy for Gastrointestinal obstruction secondary to pyloric thickening. Patient currently sitting up at bedside chair. Patient reports her pain is controlled. Denies any nausea. Has NG tube in place. She is scheduled for PICC line placement to start TPN. Urine output of 1100 mL during the evening and 150 ML this morning. Afebrile. WBC is up at 11.2 hemoglobin 11.3 p latelets 146 sodium 136 cr 0.70 PHYSICAL EXAM: VITAL SIGNS: Reviewed. GENERAL: Well-developed in no acute distress. HEENT: No sclera icterus. Extraocular movements grossly intact. Moist buccal mucosa. Head is atraumatic, normocephalic. ABDOMEN: Soft. Nondistended. Incisional dressing minimal dried blood noted. NEUROLOGIC: Alert and oriented to self ASSESSMENT: 1. Gastrointestinal obstruction secondary to pyloric thickening status post distal antrectomy with loop gastro-jejunostomy 2. Underweight, BMI 18.2 3. Hypokalemia resolved PLAN: -Continue NG tube for decompression -Keep patient nothing by mouth -Medicine service has ordered TPN for nutrition support -Continue supportive care -Continue to monitor urine output -Continue IV fluids -Continue pain medication as needed -DVT prophylaxis subcu heparin and GI prophylaxis Protonix Physician Risk Mgr note has been reviewed by physician. Signing provider agrees with the documented findings, assessment, and plan of care. Objective - Vital Signs Vital signs: Vital Signs Temp 97.9 F 05/11/21 07:58 Pulse 55 L 05/11/21 07:58 Resp 14 05/11/21 07:58 BP 131/69 05/11/21 07:58 Pulse Ox 100 05/11/21 02:00 Intake & Output 05/10/21 05/11/21 05/11/21 18:59 06:59 18:59 Intake Total 650 Output Total 1275 150 Balance -625 -150 Weight 48.081 kg Intake: IV 650 Oral 0 Output: Urine 1250 150 Estimated Blood Loss 25 Other: Voiding Method External Catheter Indwelling Catheter - Labs CBC & Chem 7: 05/11/21 06:32 05/11/21 06:32 Labs: Abnormal Lab Results - Last 24 Hours (Table) 05/11/21 05/11/21 Range/Units 06:32 06:32 WBC 11.2 H (3.8-10.6) k/uL RBC 3.43 L (3.80-5.40) m/uL Hgb 11.3 L (11.4-16.0) gm/dL MCV 101.1 H (80.0-100.0) fL Plt Count 146 L (150-450) k/uL Neutrophils # 8.7 H (1.3-7.7) k/uL Sodium 136 L (137-145) mmol/L Chloride 110 H (98-107) mmol/L Carbon Dioxide 21 L (22-30) mmol/L Glucose 183 H (74-99) mg/dL Total Protein 5.1 L (6.3-8.2) g/dL Albumin 2.4 L (3.5-5.0) g/dL
[2021-05-11] MEDS: HYDROmorphone 1 MG/ML 1 ML SYRINGE IVP PRN (14:03)
[2021-05-11] MEDS ORDERED: LIDOCAINE 1% INJ 10MG/ML (20 ML MDV) ONE (14:51)
[2021-05-11] MEDS ORDERED: LIDOCAINE 1% INJ 10MG/ML (20 ML MDV) SQ ONE ×2 (14:55→14:57)
--- NOTE | 2021-05-11 15:34 | P.PN ---
Subjective Progress Note Date: 05/11/21 Patient is seen in follow-up today gastroenterology was consulted for esophageal obstruction. Patient had been admitted with complaints of nausea and vomiting for several days difficulty eating solids. Patient has been followed by general surgery who underwent EGD showing pyloric stenosis yesterday she underwent a distal antrectomy with loop gastro-jejunostomy. She states she has abdominal pain, no nausea or vomiting. She has NG tube in place. She's been nothing by mouth. Objective - Vital Signs Vital signs: Vital Signs Temp 97.9 F 05/11/21 07:58 Pulse 55 L 05/11/21 07:58 Resp 14 05/11/21 07:58 BP 131/69 05/11/21 07:58 Pulse Ox 100 05/11/21 02:00 Intake & Output 05/10/21 05/11/21 05/11/21 18:59 06:59 18:59 Intake Total 650 Output Total 1275 150 Balance -625 -150 Weight 48.081 kg Intake: IV 650 Oral 0 Output: Urine 1250 150 Estimated Blood Loss 25 Other: Voiding Method External Catheter Indwelling Catheter - Exam General appearance: The patient is alert, oriented, appears in no acute distress. HET: Head is normocephalic and atraumatic. Conjunctiva pink. Sclera anicteric. NG tube in place. Neck: Supple without lymphadenopathy. Abdomen: Soft, tender to palpation, incision with dressing with old drainage, nondistended with bowel sounds. No guarding or rigidity. Extremities: Normal skin color and turgor. No pedal edema Skin: No rashes, no jaundice Neurological: No focal deficits. Alert and oriented -3. - Labs CBC & Chem 7: 05/11/21 06:32 05/11/21 06:32 Labs: Abnormal Lab Results - Last 24 Hours (Table) 05/11/21 05/11/21 Range/Units 06:32 06:32 WBC 11.2 H (3.8-10.6) k/uL RBC 3.43 L (3.80-5.40) m/uL Hgb 11.3 L (11.4-16.0) gm/dL MCV 101.1 H (80.0-100.0) fL Plt Count 146 L (150-450) k/uL Neutrophils # 8.7 H (1.3-7.7) k/uL Sodium 136 L (137-145) mmol/L Chloride 110 H (98-107) mmol/L Carbon Dioxide 21 L (22-30) mmol/L Glucose 183 H (74-99) mg/dL Total Protein 5.1 L (6.3-8.2) g/dL Albumin 2.4 L (3.5-5.0) g/dL Assessment and Plan (1) Dysphagia Narrative/Plan: 86-year-old female who was admitted to the hospital with complaints of difficulty with swallowing and approximately 10 pound weight loss over the last 1 month duration. She was seen by general surgery and underwent an EGD yesterday with Dr. Cordon showing gastric outlet obstruction. She is scheduled today for Pyloromyotomy with Dr. Leos. Patient had an EGD done by Dr. Torres on 03/10/2021 that showed severe esophagitis with erosions and exudates involving entire mid and distal esophagus consistent with LA grade C reflux esophagitis, pyloric stenosis, mucosal erythema and friable idiopathic antrum c onsistent with gastritis, as well as a small hiatal hernia. The patient was supposed follow-up with Dr. Torres she continued to have difficulty with swallowing or nausea and vomiting. Patient states she does not recall if she followed up with doctor tomorrow. Pathology showed evidence of mild chronic gastritis. Continue Protonix daily. Current Visit: Yes Status: Acute Code(s): R13.10 - DYSPHAGIA, UNSPECIFIED SNOMED Code(s): 17556227 (2) Pyloric stenosis in adult Narrative/Plan: Patient had already been seen by general surgery and underwent EGD yesterday and today underwent a distal antrectomy with loop gastro-jejunostomy Patient is postop day #1 for distal antrectomy with loop gastrojejunostomy Current Visit: Yes Status: Acute Code(s): K31.1 - ADULT HYPERTROPHIC PYLORIC STENOSIS SNOMED Code(s): 740415638 Plan: 1. Continue symptomatic and supportive care 2. Continue Protonix 40 mg twice a day 3. Patient is status post EGD with Dr. Leos 4. Patient is status post distal antrectomy with loop gastrojejunostomy Thank you for this consultation, we will sign off at this time. Dr. Luis Torres I agree with the dictator's note, documented as a scribe by Kavita Cuadra.
--- NOTE | 2021-05-11 15:43 | IR ---
EXAMINATION TYPE: IR cvc insert >=5 years DATE OF EXAM: 05/11/2021 COMPARISON: NONE CLINICAL HISTORY: Postop Needs long-term intravenous access for total parenteral nutrition. PROCEDURE: Hand hygiene obtained with soap and water and alcohol-based hand rub. After informed consent, the skin overlying the left brachial vein was localized with ultrasound and n oted to be compressible and patent. An ultrasound image was obtained and submitted on the patient's chart. The overlying skin was prepped and draped and Lidocaine was used for local anesthesia. A ski n reese was made with a scalpel. Access was gained to the vein under ultrasound guidance with a 21 ga uge needle and a 0.018 inch wire was advanced. Access site was dilated with Peel-Away sheath and cat heter tailored to the appropriate length and advanced such that the distal tip is at the cavoatrial j unction. Spot image was obtained verifying placement. Catheter was fixed to the skin and a sterile dressing was placed following hemostasis. Catheter was aspirated and flushed with saline. Patient w as discharged in stable condition without complication.Maximal barrier technique is utilized. Ultras ound image is documented on the chart. Ultrasound used with sterile technique. Fluoro time and fluoroscopic images submitted to document procedure: 0.9 minutes fluoroscopy time, 57 2 intraoperative C-arm images IMPRESSION: STATUS POST ULTRASOUND AND FLUOROSCOPIC GUIDED PICC LINE PLACEMENT, READY FOR USE. THIS PROCEDURE WAS PERFORMED BY THE UNDERSIGNED.
[2021-05-11] MEDS ORDERED: SODIUM CHLORIDE 0.9% 500 ML 500 ML IV ONE (16:00)
[2021-05-11] MEDS: LACTATED RINGERS 1,000 ML IV SCH (16:20)
[2021-05-11] MEDS ORDERED: FAT EMULSION 20% 500 ML IV SCH (18:00)
[2021-05-11] MEDS ORDERED: MVI, ADULT NO.4 WITH VIT K 10 ML, TRACE (CONC-1ML/DOSE) 1 ML in AMINO ACID 5%-D15W+LYTE... IV ONE ×3 (18:30)
[2021-05-11 21:08] LABS: Glucose,Whole Blood 180 mg/dL (75-99)
--- NOTE | 2021-05-11 21:08 | XR ---
EXAMINATION TYPE: XR chest 1V portable DATE OF EXAM: 05/11/2021 8:57 PM COMPARISON:Multiple radiographs, with the most recent on 05/04/2021 TECHNIQUE: Frontal view of the chest. CLINICAL INDICATION:Female, 86 years old with history of NG Tube placement; FINDINGS: Lungs/Pleura: There is changes most pronounced in the left upper lobe. There is no evidence of pleura l effusion, focal consolidation, or pneumothorax. Pulmonary vascularity: Unremarkable. Heart/mediastinum: Cardiomediastinal silhouette is enlarged and stable. Musculoskeletal: No acute osseous pathology. Scoliosis changes. Other findings: There is is lucency under the diaphragm on the right. Skin zeke are seen projectin g over the the lower abdomen. Lines/Tubes: Nasogastric tube with its distal tip and side-port projecting under the diaphragm. Left-sided PICC with distal tip at the superior vena cava/brachiocephalic confluence. IMPRESSION: 1. Nasogastric tube with distal tip and side-port in appropriate position. 2. Lucency under the right diaphragm concerning for pneumoperitoneum. Correlate with recent intervent ion in the abdomen. 3. Emphysema changes most pronounced in the left lung apex.
[2021-05-11] MEDS: LATANOPROST 0.005% OPHTH DROPS 2.5 ML BTL BOTH EYES SCH (22:18)
[2021-05-12] MEDS: hydrALAZINE HCL 20 MG/ML 1 ML VIAL IVP PRN (03:23)
[2021-05-12 05:41] LABS: Ionized Calcium 5.3 mg/dL (4.5-5.3)
[2021-05-12 06:10] LABS: ALT 7 U/L (4-34); AST 18 U/L (14-36); African American GFR (CKD) >90 (>60 ml/min/1.73 sqM); Albumin 2.3 g/dL (3.5-5.0); Albumin/Globulin Ratio 0.9; Alkaline Phosphatase 70 U/L (38-126); Anion Gap 3 mmol/L; Blood Urea Nitrogen 8 mg/dL (7-17); Calcium 8.5 mg/dL (8.4-10.2); Carbon Dioxide 23 mmol/L (22-30); Chloride 106 mmol/L (98-107); Globulin 2.6 g/dL; Glucose 180 mg/dL (74-99); Magnesium 1.5 mg/dL (1.6-2.3); Non-African American GFR(CKD) 87 (>60 ml/min/1.73 sqM); Phosphorus 2.4 mg/dL (2.5-4.5); Potassium 3.7 mmol/L (3.5-5.1); Sodium 132 mmol/L (137-145); Total Bilirubin 0.3 mg/dL (0.2-1.3); Total Protein 4.9 g/dL (6.3-8.2)
[2021-05-12 07:03] LABS: Glucose,Whole Blood 174 mg/dL (75-99)
[2021-05-12] MEDS: HEPARIN SODIUM,PORCINE/PF 5,000 UNIT/0.5 ML SYRINGE SQ SCH ×2 (07:58→21:27)
[2021-05-12] MEDS: INSULIN ASPART (NovoLOG) 100 UNIT/ML VIAL SQ SCH ×3 (07:58→21:26)
[2021-05-12] MEDS: lisinopriL 5 MG TAB PO SCH (07:59)
[2021-05-12] MEDS: TIMOLOL 0.25% OPHTH DROPS 5 ML BTL BOTH EYES SCH (07:59)
[2021-05-12] MEDS: METOPROLOL SUCCINATE (ER) 25 MG TAB.ER.24H PO SCH (07:59)
[2021-05-12] MEDS: MAGNESIUM SULFATE-D5W PMX 1 GM in DEXTROSE/WATER 1 100ML.BAG IVPB SCH ×2 (08:33→10:50)
[2021-05-12] MEDS: PANTOPRAZOLE 40 MG/10 ML VIAL IV SCH (08:33)
[2021-05-12 09:35] LABS: Basophils # (A) 0.02 X 10*3/uL (0.00-0.10); Basophils % (A) 0.2 %; Eosinophils % (A) 0.9 %; HCT 30.2 % (37.2-46.3); HGB 9.7 g/dL (12.0-15.0); Immature Grans, Automated 0.4 %; Lymphocytes # (A) 1.41 X 10*3/uL (0.90-5.00); Lymphocytes % (A) 12.9 %; MCH 31.3 pg (27.0-32.0); MCHC 32.1 g/dL (32.0-37.0); MCV 97.4 fL (80.0-97.0); Mean Platelet Volume 11.1 fL (9.5-12.2); Monocytes # (A) 0.75 X 10*3/uL (0.20-1.00); Monocytes % (A) 6.9 %; NRBC Per 100 WBC 0 /100 WBCS (0.0-0.0); Neutrophils % (A) 78.7 %; Platelet Count 245 X 10*3/uL (140-440); RDW 13.8 % (11.5-14.5); WBC 10.92 X 10*3/uL (4.50-10.00)
--- NOTE | 2021-05-12 09:55 | P.PN ---
Subjective Progress Note Date: 05/12/21 Prerna Hyde, is a 86-year-old female patient who was sent to ER from [facility] with concerns of dehydration and failure to thrive. Patient has a known past medical history of esophageal strictures. Patient is scheduled pain for pyloric dilation and early May but over the past 2 weeks patient has lost 10 pounds and had increasing vomiting and unable to keep fluids down. Additional medical history includes CVA, diabetes mellitus, high disorder, GERD, hyperlipidemia, hypertension, thyroid disorder, dementia, anxiety and depression. Chest x-ray was completed showing no acute process. This time patient will be admitted patient initiated on IV hydration and surgical services have been consulted. Patient is currently sitting comfortably in chair. At this time patient denies chest pain or shortness breath. Patient denies nausea vomiting or diarrhea. Patient denies any urinary burning or frequency. On 05/06/2021 patient was seen and examined on the medical floor she is alert and oriented 3 in no apparent distress she is denying any pain or any symptoms at this time, her blood pressure is 144/60 pulse 65 respiration 18 temperature 97.6 and pulse ox 90% on room air. Throughout last night, I received multiple calls regarding this patient for hematuria, possible cardiac arrhythmia. Actually the nurse called in the A team at 1:30 AM due to concern about hematur ia, CBC was done, hemoglobin is stable, at this point I discontinued Lovenox and ordered SCD stockings for DVT prophylaxis, urology consultation was requested in that regard to hematuria. The nurse also had concern regarding possible cardiac arrhythmia at some point during the last night heart rate was up to 162 then was mostly in the 50s and 60s throughout the night, cardiology consultation was requested in that regard. At this time patient seems to be stable she is receiving IV fluid, I will decrease the dose to 75 mL per hour and give 1 dose of IV Lasix due to some fine crackles in her bases. Otherwise we are awaiting intervention by GI or surgery for esophageal stricture. At this time patient is not able to take any pills, I have added hydralazine IV on a when necessary basis for elevated blood pressure. Will resume oral medication after esophageal dilatation. On 05/07/2021 patient is alert and oriented 3 resting comfortably in bed. Temp 98, heart rate 90, respiratory rate 16, blood pressure 147/80 95% on room air. Patient was evaluated by the urology service is minimal blood noted on UA no further workup inpatient per urology. Patient also currently being followed by cardiology services for atrial fibrillation. Awaiting surgical plan in regards to possible dilation of esophageal stricture. Patient is currently resting in bed with eyes chest pain or shortness breath. Patient denies nausea vomiting or diarrhea. Denies any urinary burning or frequency On 05/08/2021 patient was seen and examined on the medical floor she is alert and oriented in no apparent distress she is able to tolerate liquid diet well at this time we are awaiting EGD with possible dilatatian tomorrow. Patient denies any fever or chills no headache or dizziness no chest pain no shortness of breath no cough no nausea or vomiting no abdominal pain no diarrhea and no urinary symptoms On 05/09/2021 patient is alert and oriented. Patient to undergo EGD today with Dr. Leos. Patient denies chest pain or shortness breath. Patient denies nausea vomiting or diarrhea. Patient denies any urinary burning or frequency On 05/10/2021 patient alert and oriented sitting comfortably in chair. Patient did undergo EGD yesterday without dilation. Plans for EGD with dilation today per GI services. Patient denies chest pain or shortness of breath. Patient denies nausea vomiting or diarrhea. Patient denies any urinary burning or frequency. On 05/11/2021 patient was seen and examined on the medical floor she is alert and oriented 3 in no apparent distress she underwent surgery with Dr. Leos yesterday, patient had distal antrectomy with loop gastro-jejunostomy, today she is doing well she is sitting up in a chair she has an NG tube in, she is awaiting PICC line placement to start TPN, vital exam reveals a temperature of 98.2 pulse 69 respiration 18 blood pressure 139/68. White blood count 11.2 hemoglobin 11.3 platelet count 146 BUN 11 creatinine 0.7 On 05/12/2021 patient is alert and oriented 3. Patient is resting comfortably in bed. Patient has been started on TPN. Current temp 97.7, heart rate 57, respiratory rate 15, blood pressure 139/73 with a pulse ox of 97% on room air. Patient denies any acute complaints. Patient denies chest pain or shortness breath. Patient denies nausea vomiting or diarrhea. Patient denies any urinary burning or frequency Objective - Vital Signs Vital signs: Vital Signs Temp 97.7 F 05/12/21 07:48 Pulse 57 L 05/11/21 14:00 Resp 15 05/12/21 07:48 BP 139/73 05/12/21 07:48 Pulse Ox 97 05/12/21 07:48 Intake & Output 05/11/21 05/12/21 05/12/21 18:59 06:59 18:59 Output Total 1300 Balance -1300 Output: Urine 1300 Other: Voiding Method Indwelling Catheter Indwelling Catheter Indwelling Catheter - Exam In general patient is alert and oriented x 3 in no distress HEENT head normocephalic and atraumatic Neck is supple no JVD no goiter no lymphadenopathy no carotid bruit Chest examination reveals a few crackles in both lung bases no wheezing Cardiac exam reveals regular heart sounds S1 and S2 no gallops no murmurs Abdomen is soft nontender no organomegaly with normal bowel sounds Extremity exam reveals no edema no cyanosis or clubbing Neurological examination reveals no gross focal deficits - Labs CBC & Chem 7: 05/12/21 04:48 05/12/21 04:48 Labs: Abnormal Lab Results - Last 24 Hours (Table) 05/11/21 05/12/21 05/12/21 Range/Units 21:06 04:48 04:48 WBC 10.92 H (4.50-10.00) X 10*3/uL RBC 3.10 L (4.10-5.20) X 10*6/uL Hgb 9.7 L (12.0-15.0) g/dL Hct 30.2 L (37.2-46.3) % MCV 97.4 H (80.0-97.0) fL Neutrophils # 8.60 H (1.80-7.70) X 10*3/uL Sodium 132 L (137-145) mmol/L Glucose 180 H (74-99) mg/dL POC Glucose (mg/dL) 180 H (75-99) mg/dL Phosphorus 2.4 L (2.5-4.5) mg/dL Magnesium 1.5 L (1.6-2.3) mg/dL Total Protein 4.9 L (6.3-8.2) g/dL Albumin 2.3 L (3.5-5.0) g/dL 05/12/21 Range/Units 07:00 WBC (4.50-10.00) X 10*3/uL RBC (4.10-5.20) X 10*6/uL Hgb (12.0-15.0) g/dL Hct (37.2-46.3) % MCV (80.0-97.0) fL Neutrophils # (1.80-7.70) X 10*3/uL Sodium (137-145) mmol/L Glucose (74-99) mg/dL POC Glucose (mg/dL) 174 H (75-99) mg/dL Phosphorus (2.5-4.5) mg/dL Magnesium (1.6-2.3) mg/dL Total Protein (6.3-8.2) g/dL Albumin (3.5-5.0) g/dL Assessment and Plan Assessment: 1. Poor oral intake with failure to thrive secondary to gastric outlet obstruction patient underwent Distal antrectomy with loop gastro-jejunostomy on 05/10/2021 2. Patient recently underwent EGD. EGD revealing severe esophagitis with erosions and states involving the entirely mid and distal stoppages consistent with LAD grade C reflux esophagitis. Patient did have follow-up scheduled in early May 3. History of proximal atrial fibrillation. xarelto on hold. Maintained on Lovenox 4. History of CVA 5. History of type 2 diabetes mellitus 6. Hyperlipidemia. Maintained on statins 7. History of essential hypertension 8. Hypothyroidism 9. History of dementia 10. [facility], urology consultation requested. Patient was evaluated by urology services. Minimum blood noted on UA. No further workup and patient 11. Episode of tachycardia with heart rate up to 162 with possible cardiac arrhythmia, cardiology consultation was requested. Per cardiology continue Lopressor and lisinopril. Patient to being restarted back on oral anticoagulation at 20 mg daily once stable from GI standpoint DVT prophylaxis Lovenox. GI prophylaxis Protonix Cardiology and GI services following Status post EGD on 05/09/2021 Status post distal antrectomy with loop gastrojejunostomy on 05/10/2021 Patient started on TPN
[2021-05-12] MEDS: D5-0.45% NACL WITH KCL 20MEQ/L 1,000 ML IV SCH ×3 (10:45→21:41)
[2021-05-12] MEDS ORDERED: SODIUM PHOSPHATE 10 MMOL in SODIUM CHLORIDE 0.9% 100 ML IVPB ONE (11:00)
[2021-05-12 11:31] LABS: Glucose,Whole Blood 153 mg/dL (75-99)
[2021-05-12 16:28] LABS: Glucose,Whole Blood 146 mg/dL (75-99)
--- NOTE | 2021-05-12 16:35 | P.PN ---
Subjective Progress Note Date: 05/12/21 CHIEF COMPLAINT: Nausea and vomiting HISTORY OF PRESENT ILLNESS: Patient is status post Distal antrectomy with loop gastro-jejunostomy for Gastrointestinal obstruction secondary to pyloric thickening. Patient is lying bed comfortably. Denies any nausea. She did pull out her NG tube. This has been reinserted. NG tube with 1 L of bilious output. Denies any bowel movement or flatus. She has PICC line in place with TPN started. Her urine output has improved. The Dilaudid makes her sleepy. afebri le. WBC 10.92 hemoglobin 9.7 platelets 245 sodium 132 potassium 3.7 creatinine 0.53 PHYSICAL EXAM: VITAL SIGNS: Reviewed. GENERAL: Well-developed in no acute distress. HEENT: No sclera icterus. Extraocular movements grossly intact. Moist buccal mucosa. Head is atraumatic, normocephalic. ABDOMEN: Soft. Nondistended. Incisional dressing minimal dried blood noted. NEUROLOGIC: Alert and oriented to self ASSESSMENT: 1. Gastrointestinal obstruction secondary to pyloric thickening status post distal antrectomy with loop gastro-jejunostomy 2. Underweight, BMI 18.2 3. Hypokalemia resolved 4. Severe protein calorie malnutrition PLAN: -Continue NG tube for decompression -Keep patient nothing by mouth -Continue TPN for nutrition support -Add IV Tylenol for pain control -Continue supportive care -Continue IV fluids -Continue pain medication as needed -Add incentive spirometer -DVT prophylaxis subcu heparin and GI prophylaxis Protonix Physician Color Grinder note has been reviewed by physician. Signing provider agrees with the documented findings, assessment, and plan of care. Objective - Vital Signs Vital signs: Vital Signs Temp 98.1 F 05/12/21 13:58 Pulse 73 05/12/21 13:58 Resp 18 05/12/21 13:58 BP 152/80 05/12/21 13:58 Pulse Ox 96 05/12/21 13:58 Intake & Output 05/11/21 05/12/21 05/12/21 18:59 06:59 18:59 Output Total 1300 Balance -1300 Weight 48.081 kg Output: Urine 1300 Other: Voiding Method Indwelling Catheter Indwelling Catheter Indwelling Catheter - Labs CBC & Chem 7: 05/12/21 04:48 05/12/21 04:48 Labs: Abnormal Lab Results - Last 24 Hours (Table) 05/11/21 05/12/2105/12/22 Range/Units 21:06 04:48 04:48 WBC 10.92 H (4.50-10.00) X 10*3/uL RBC 3.10 L (4.10-5.20) X 10*6/uL Hgb 9.7 L (12.0-15.0) g/dL Hct 30.2 L (37.2-46.3) % MCV 97.4 H (80.0-97.0) fL Neutrophils # 8.60 H (1.80-7.70) X 10*3/uL Sodium 132 L (137-145) mmol/L Glucose 180 H (74-99) mg/dL POC Glucose (mg/dL) 180 H (75-99) mg/dL Phosphorus 2.4 L (2.5-4.5) mg/dL Magnesium 1.5 L (1.6-2.3) mg/dL Total Protein 4.9 L (6.3-8.2) g/dL Albumin 2.3 L (3.5-5.0) g/dL 05/12/21 05/12/21 05/12/21 Range/Units 07:00 11:29 16:26 WBC (4.50-10.00) X 10*3/uL RBC (4.10-5.20) X 10*6/uL Hgb (12.0-15.0) g/dL Hct (37.2-46.3) % MCV (80.0-97.0) fL Neutrophils # (1.80-7.70) X 10*3/uL Sodium (137-145) mmol/L Glucose (74-99) mg/dL POC Glucose (mg/dL) 174 H 153 H 146 H (75-99) mg/dL Phosphorus (2.5-4.5) mg/dL Magnesium (1.6-2.3) mg/dL Total Protein (6.3-8.2) g/dL Albumin (3.5-5.0) g/dL
[2021-05-12] MEDS: ACETAMINOPHEN IV (For NPO) 1,000 MG in EMPTY BAG 1 BAG IVPB SCH ×2 (17:35→21:25)
[2021-05-12] MEDS ORDERED: 1: MVI, ADULT NO.4 WITH VIT K 10 ML, TRACE (CONC-1ML/DOSE) 1 ML in AMINO ACID 5%-D15W+LY IV SCH ×3 (18:00)
[2021-05-12] MEDS: [UNRECOGNIZED DRUG - REMARK] IV SCH ×4 (19:02)
[2021-05-12 19:47] LABS: Glucose,Whole Blood 163 mg/dL (75-99)
[2021-05-12] MEDS: LATANOPROST 0.005% OPHTH DROPS 2.5 ML BTL BOTH EYES SCH (21:27)
[2021-05-13 02:35] LABS: Glucose,Whole Blood 89 mg/dL (75-99)
[2021-05-13] MEDS: INSULIN ASPART (NovoLOG) 100 UNIT/ML VIAL SQ SCH ×4 (02:40→21:32)
[2021-05-13] MEDS ORDERED: DEXTROSE 50% SYRINGE 50 ML IVP STA (03:13)
[2021-05-13] MEDS: DEXTROSE 5%-0.45% NACL 1,000 ML IV SCH ×2 (03:24→16:04)
[2021-05-13 04:16] LABS: Glucose,Whole Blood 87 mg/dL (75-99)
[2021-05-13 04:39] LABS: ALT 7 U/L (4-34); AST 21 U/L (14-36); African American GFR (CKD) >90 (>60 ml/min/1.73 sqM); Albumin 2.3 g/dL (3.5-5.0); Alkaline Phosphatase 61 U/L (38-126); Anion Gap 3 mmol/L; Blood Urea Nitrogen 15 mg/dL (7-17); Calcium 8.3 mg/dL (8.4-10.2); Carbon Dioxide 23 mmol/L (22-30); Chloride 106 mmol/L (98-107); Globulin 2.3 g/dL; Glucose 95 mg/dL (74-99); Non-African American GFR(CKD) 88 (>60 ml/min/1.73 sqM); Phosphorus 3.9 mg/dL (2.5-4.5); Potassium 4.1 mmol/L (3.5-5.1); Sodium 132 mmol/L (137-145); Total Bilirubin 0.5 mg/dL (0.2-1.3); Total Protein 4.6 g/dL (6.3-8.2)
[2021-05-13] MEDS: ACETAMINOPHEN IV (For NPO) 1,000 MG in EMPTY BAG 1 BAG IVPB SCH ×3 (04:55→16:04)
[2021-05-13 06:05] LABS: Glucose,Whole Blood 95 mg/dL (75-99)
[2021-05-13] MEDS: PANTOPRAZOLE 40 MG/10 ML VIAL IV SCH (07:36)
[2021-05-13] MEDS: HEPARIN SODIUM,PORCINE/PF 5,000 UNIT/0.5 ML SYRINGE SQ SCH ×2 (07:36→22:24)
[2021-05-13] MEDS: TIMOLOL 0.25% OPHTH DROPS 5 ML BTL BOTH EYES SCH (07:37)
[2021-05-13] MEDS: [UNRECOGNIZED DRUG - REMARK] IV SCH ×8 (10:38→22:23)
[2021-05-13] MEDS: METOPROLOL SUCCINATE (ER) 25 MG TAB.ER.24H PO SCH (10:39)
[2021-05-13] MEDS: lisinopriL 5 MG TAB PO SCH (10:39)
[2021-05-13 11:10] LABS: Glucose,Whole Blood 118 mg/dL (75-99)
--- NOTE | 2021-05-13 11:20 | P.PN ---
Subjective Progress Note Date: 05/13/21 Principal diagnosis: Gastric polyp obstruction Patient was confused last night. She pulled her nasogastric tube out twice and her PICC line as well. Prior to that nasogastric tube output approximately 250 mL. Denies pain. Objective - Vital Signs Vital signs: Vital Signs Temp 97.6 F 05/13/21 07:31 Pulse 73 05/13/21 07:31 Resp 16 05/13/21 07:31 BP 129/66 05/13/21 07:31 Pulse Ox 98 05/13/21 07:31 Intake & Output 05/12/21 05/13/21 05/13/21 18:59 06:59 18:59 Output Total 900 250 Balance -900 -250 Weight 48.081 kg Output: Gastric Drainage 250 Urine 900 Stool 0 Other: Voiding Method Indwelling Catheter Indwelling Catheter # Voids 800 - Exam Abdomen: Soft, nondistended, mild tenderness, dressing clean and dry - Labs CBC & Chem 7: 05/12/21 04:48 05/13/21 04:04 Labs: Abnormal Lab Results - Last 24 Hours (Table) 05/12/21 05/12/21 05/12/21 Range/Units 11:29 16:26 19:45 Sodium (137-145) mmol/L Creatinine (0.52-1.04) mg/dL POC Glucose (mg/dL) 153 H 146 H 163 H (75-99) mg/dL Calcium (8.4-10.2) mg/dL Total Protein (6.3-8.2) g/dL Albumin (3.5-5.0) g/dL 05/13/21 05/13/21 Range/Units 04:04 11:08 Sodium 132 L (137-145) mmol/L Creatinine 0.50 L (0.52-1.04) mg/dL POC Glucose (mg/dL) 118 H (75-99) mg/dL Calcium 8.3 L (8.4-10.2) mg/dL Total Protein 4.6 L (6.3-8.2) g/dL Albumin 2.3 L (3.5-5.0) g/dL Assessment and Plan (1) Pyloric stenosis in adult Narrative/Plan: Patient removed her nasogastric tube on more than one occasion. We'll leave it out for now. Keep nothing by mouth. Increase activity as tolerated. Continue antibiotics. Current Visit: Yes Status: Acute Code(s): K31.1 - ADULT HYPERTROPHIC PYLORIC STENOSIS SNOMED Code(s): 942587353
--- NOTE | 2021-05-13 12:13 | P.PN ---
Subjective Progress Note Date: 05/13/21 Prerna Hyde, is a 86-year-old female patient who was sent to ER from [facility] with concerns of dehydration and failure to thrive. Patient has a known past medical history of esophageal strictures. Patient is scheduled pain for pyloric dilation and early May but over the past 2 weeks patient has lost 10 pounds and had increasing vomiting and unable to keep fluids down. Additional medical history includes CVA, diabetes mellitus, high disorder, GERD, hyperlipidemia, hypertension, thyroid disorder, dementia, anxiety and depression. Chest x-ray was completed showing no acute process. This time patient will be admitted patient initiated on IV hydration and surgical services have been consulted. Patient is currently sitting comfortably in chair. At this time patient denies chest pain or shortness breath. Patient denies nausea vomiting or diarrhea. Patient denies any urinary burning or frequency. On 05/06/2021 patient was seen and examined on the medical floor she is alert and oriented 3 in no apparent distress she is denying any pain or any symptoms at this time, her blood pressure is 144/60 pulse 65 respiration 18 temperature 97.6 and pulse ox 90% on room air. Throughout last night, I received multiple calls regarding this patient for hematuria, possible cardiac arrhythmia. Actually the nurse called in the A team at 1:30 AM due to concern about hematur ia, CBC was done, hemoglobin is stable, at this point I discontinued Lovenox and ordered SCD stockings for DVT prophylaxis, urology consultation was requested in that regard to hematuria. The nurse also had concern regarding possible cardiac arrhythmia at some point during the last night heart rate was up to 162 then was mostly in the 50s and 60s throughout the night, cardiology consultation was requested in that regard. At this time patient seems to be stable she is receiving IV fluid, I will decrease the dose to 75 mL per hour and give 1 dose of IV Lasix due to some fine crackles in her bases. Otherwise we are awaiting intervention by GI or surgery for esophageal stricture. At this time patient is not able to take any pills, I have added hydralazine IV on a when necessary basis for elevated blood pressure. Will resume oral medication after esophageal dilatation. On 05/07/2021 patient is alert and oriented 3 resting comfortably in bed. Temp 98, heart rate 90, respiratory rate 16, blood pressure 147/80 95% on room air. Patient was evaluated by the urology service is minimal blood noted on UA no further workup inpatient per urology. Patient also currently being followed by cardiology services for atrial fibrillation. Awaiting surgical plan in regards to possible dilation of esophageal stricture. Patient is currently resting in bed with eyes chest pain or shortness breath. Patient denies nausea vomiting or diarrhea. Denies any urinary burning or frequency On 05/08/2021 patient was seen and examined on the medical floor she is alert and oriented in no apparent distress she is able to tolerate liquid diet well at this time we are awaiting EGD with possible dilatatian tomorrow. Patient denies any fever or chills no headache or dizziness no chest pain no shortness of breath no cough no nausea or vomiting no abdominal pain no diarrhea and no urinary symptoms On 05/09/2021 patient is alert and oriented. Patient to undergo EGD today with Dr. Leos. Patient denies chest pain or shortness breath. Patient denies nausea vomiting or diarrhea. Patient denies any urinary burning or frequency On 05/10/2021 patient alert and oriented sitting comfortably in chair. Patient did undergo EGD yesterday without dilation. Plans for EGD with dilation today per GI services. Patient denies chest pain or shortness of breath. Patient denies nausea vomiting or diarrhea. Patient denies any urinary burning or frequency. On 05/11/2021 patient was seen and examined on the medical floor she is alert and oriented 3 in no apparent distress she underwent surgery with Dr. Leos yesterday, patient had distal antrectomy with loop gastro-jejunostomy, today she is doing well she is sitting up in a chair she has an NG tube in, she is awaiting PICC line placement to start TPN, vital exam reveals a temperature of 98.2 pulse 69 respiration 18 blood pressure 139/68. White blood count 11.2 hemoglobin 11.3 platelet count 146 BUN 11 creatinine 0.7 On 05/12/2021 patient is alert and oriented 3. Patient is resting comfortably in bed. Patient has been started on TPN. Current temp 97.7, heart rate 57, respiratory rate 15, blood pressure 139/73 with a pulse ox of 97% on room air. Patient denies any acute complaints. Patient denies chest pain or shortness breath. Patient denies nausea vomiting or diarrhea. Patient denies any urinary burning or frequency. On 05/13/2021 patient was seen and examined on the medical floor, she is alert and oriented 3 in no apparent distress, she denies any pain or any complaints at this time. During the last night patient pulled out her PICC line and her NG tube. ICU nurse was able to obtain a peripheral line, patient is off TPN, and is maintained on IV fluid at this time. Objective - Vital Signs Vital signs: Vital Signs Temp 97.6 F 05/13/21 07:31 Pulse 73 05/13/21 07:31 Resp 16 05/13/21 07:31 BP 129/66 05/13/21 07:31 Pulse Ox 98 05/13/21 07:31 Intake & Output 05/12/21 05/13/21 05/13/21 18:59 06:59 18:59 Output Total 900 250 Balance -900 -250 Weight 48.081 kg Output: Gastric Drainage 250 Urine 900 Stool 0 Other: Voiding Method Indwelling Catheter Indwelling Catheter # Voids 800 - Exam In general patient is alert and oriented x 3 in no distress HEENT head normocephalic and atraumatic Neck is supple no JVD no goiter no lymphadenopathy no carotid bruit Chest examination reveals a few crackles in both lung bases no wheezing Cardiac exam reveals regular heart sounds S1 and S2 no gallops no murmurs Abdomen is soft nontender no organomegaly with normal bowel sounds Extremity exam reveals no edema no cyanosis or clubbing Neurological examination reveals no gross focal deficits - Labs CBC & Chem 7: 05/12/21 04:48 05/13/21 04:04 Labs: Abnormal Lab Results - Last 24 Hours (Table) 05/12/21 05/12/21 05/13/21 Range/Units 16:26 19:45 04:04 Sodium 132 L (137-145) mmol/L Creatinine 0.50 L (0.52-1.04) mg/dL POC Glucose (mg/dL) 146 H 163 H (75-99) mg/dL Calcium 8.3 L (8.4-10.2) mg/dL Total Protein 4.6 L (6.3-8.2) g/dL Albumin 2.3 L (3.5-5.0) g/dL 05/13/21 Range/Units 11:08 Sodium (137-145) mmol/L Creatinine (0.52-1.04) mg/dL POC Glucose (mg/dL) 118 H (75-99) mg/dL Calcium (8.4-10.2) mg/dL Total Protein (6.3-8.2) g/dL Albumin (3.5-5.0) g/dL Assessment and Plan Assessment: 1. Poor oral intake with failure to thrive secondary to gastric outlet obstruction patient underwent Distal antrectomy with loop gastro-jejunostomy on 05/10/2021 2. Patient recently underwent EGD. EGD revealing severe esophagitis with e rosions and states involving the entirely mid and distal stoppages consistent with LAD grade C reflux esophagitis. Patient did have follow-up scheduled in early May 3. History of proximal atrial fibrillation. xarelto on hold. Maintained on Lovenox 4. History of CVA 5. History of type 2 diabetes mellitus 6. Hyperlipidemia. Maintained on statins 7. History of essential hypertension 8. Hypothyroidism 9. History of dementia 10. Hematuria per shift leader nurse, urology consultation requested. Patient was evaluated by urology services. Minimum blood noted on UA. No further workup and patient 11. Episode of tachycardia with heart rate up to 162 with possible cardiac ar rhythmia, cardiology consultation was requested. Per cardiology continue Lopressor and lisinopril. Patient to being restarted back on oral anticoagulation at 20 mg daily once stable from GI standpoint. DVT prophylaxis Lovenox. GI prophylaxis Protonix Cardiology and GI services following Status post EGD on 05/09/2021 Status post distal antrectomy with loop gastrojejunostomy on 05/10/2021 Patient started on TPN
[2021-05-13 16:37] LABS: Glucose,Whole Blood 108 mg/dL (75-99)
[2021-05-13 21:23] LABS: Glucose,Whole Blood 102 mg/dL (75-99)
[2021-05-13] MEDS: LATANOPROST 0.005% OPHTH DROPS 2.5 ML BTL BOTH EYES SCH (22:24)
[2021-05-14 00:08] LABS: Glucose,Whole Blood 102 mg/dL (75-99)
[2021-05-14] MEDS: INSULIN ASPART (NovoLOG) 100 UNIT/ML VIAL SQ SCH ×4 (02:22→17:12)
[2021-05-14 04:14] LABS: ALT 13 U/L (4-34); AST 26 U/L (14-36); African American GFR (CKD) >90 (>60 ml/min/1.73 sqM); Albumin 2.2 g/dL (3.5-5.0); Alkaline Phosphatase 72 U/L (38-126); Anion Gap 3 mmol/L; Blood Urea Nitrogen 12 mg/dL (7-17); Calcium 8.1 mg/dL (8.4-10.2); Carbon Dioxide 25 mmol/L (22-30); Chloride 105 mmol/L (98-107); Globulin 2.3 g/dL; Glucose 109 mg/dL (74-99); Magnesium 1.8 mg/dL (1.6-2.3); Non-African American GFR(CKD) 87 (>60 ml/min/1.73 sqM); Phosphorus 3.7 mg/dL (2.5-4.5); Potassium 3.7 mmol/L (3.5-5.1); Sodium 133 mmol/L (137-145); Total Bilirubin 0.5 mg/dL (0.2-1.3); Total Protein 4.5 g/dL (6.3-8.2)
[2021-05-14] MEDS: HYDROmorphone 1 MG/ML 1 ML SYRINGE IVP PRN ×4 (06:10→23:45)
[2021-05-14] MEDS: DEXTROSE 5%-0.45% NACL 1,000 ML IV SCH ×2 (06:11→22:47)
[2021-05-14 06:16] LABS: Glucose,Whole Blood 103 mg/dL (75-99)
[2021-05-14] MEDS: METOPROLOL SUCCINATE (ER) 25 MG TAB.ER.24H PO SCH (06:50)
[2021-05-14] MEDS: lisinopriL 5 MG TAB PO SCH (06:50)
[2021-05-14] MEDS: HEPARIN SODIUM,PORCINE/PF 5,000 UNIT/0.5 ML SYRINGE SQ SCH ×2 (07:09→22:46)
[2021-05-14] MEDS: PANTOPRAZOLE 40 MG/10 ML VIAL IV SCH (07:09)
[2021-05-14] MEDS: TIMOLOL 0.25% OPHTH DROPS 5 ML BTL BOTH EYES SCH (07:09)
[2021-05-14 09:05] LABS: Basophils # (A) 0.03 X 10*3/uL (0.00-0.10); Basophils % (A) 0.4 %; Eosinophils # (A) 0.19 X 10*3/uL (0.04-0.35); Eosinophils % (A) 2.8 %; HCT 32.1 % (37.2-46.3); HGB 9.9 g/dL (12.0-15.0); Immature Grans, Automated 0.1 %; Lymphocytes # (A) 1.65 X 10*3/uL (0.90-5.00); Lymphocytes % (A) 23.9 %; MCH 31.2 pg (27.0-32.0); MCHC 30.8 g/dL (32.0-37.0); MCV 101.3 fL (80.0-97.0); Monocytes # (A) 0.56 X 10*3/uL (0.20-1.00); Monocytes % (A) 8.1 %; NRBC Per 100 WBC 0 /100 WBCS (0.0-0.0); Neutrophils # (A) 4.46 X 10*3/uL (1.80-7.70); Neutrophils % (A) 64.7 %; Platelet Count 235 X 10*3/uL (140-440); RBC 3.17 X 10*6/uL (4.10-5.20)
--- NOTE | 2021-05-14 09:55 | P.PN ---
Subjective Progress Note Date: 05/14/21 Prerna Hyde, is a 86-year-old female patient who was sent to ER from [facility] with concerns of dehydration and failure to thrive. Patient has a known past medical history of esophageal strictures. Patient is scheduled pain for pyloric dilation and early May but over the past 2 weeks patient has lost 10 pounds and had increasing vomiting and unable to keep fluids down. Additional medical history includes CVA, diabetes mellitus, high disorder, GERD, hyperlipidemia, hypertension, thyroid disorder, dementia, anxiety and depression. Chest x-ray was completed showing no acute process. This time patient will be admitted patient initiated on IV hydration and surgical services have been consulted. Patient is currently sitting comfortably in chair. At this time patient denies chest pain or shortness breath. Patient denies nausea vomiting or diarrhea. Patient denies any urinary burning or frequency. On 05/06/2021 patient was seen and examined on the medical floor she is alert and oriented 3 in no apparent distress she is denying any pain or any symptoms at this time, her blood pressure is 144/60 pulse 65 respiration 18 temperature 97.6 and pulse ox 90% on room air. Throughout last night, I received multiple calls regarding this patient for hematuria, possible cardiac arrhythmia. Actually the nurse called in the A team at 1:30 AM due to concern about hematur ia, CBC was done, hemoglobin is stable, at this point I discontinued Lovenox and ordered SCD stockings for DVT prophylaxis, urology consultation was requested in that regard to hematuria. The nurse also had concern regarding possible cardiac arrhythmia at some point during the last night heart rate was up to 162 then was mostly in the 50s and 60s throughout the night, cardiology consultation was requested in that regard. At this time patient seems to be stable she is receiving IV fluid, I will decrease the dose to 75 mL per hour and give 1 dose of IV Lasix due to some fine crackles in her bases. Otherwise we are awaiting intervention by GI or surgery for esophageal stricture. At this time patient is not able to take any pills, I have added hydralazine IV on a when necessary basis for elevated blood pressure. Will resume oral medication after esophageal dilatation. On 05/07/2021 patient is alert and oriented 3 resting comfortably in bed. Temp 98, heart rate 90, respiratory rate 16, blood pressure 147/80 95% on room air. Patient was evaluated by the urology service is minimal blood noted on UA no further workup inpatient per urology. Patient also currently being followed by cardiology services for atrial fibrillation. Awaiting surgical plan in regards to possible dilation of esophageal stricture. Patient is currently resting in bed with eyes chest pain or shortness breath. Patient denies nausea vomiting or diarrhea. Denies any urinary burning or frequency On 05/08/2021 patient was seen and examined on the medical floor she is alert and oriented in no apparent distress she is able to tolerate liquid diet well at this time we are awaiting EGD with possible dilatatian tomorrow. Patient denies any fever or chills no headache or dizziness no chest pain no shortness of breath no cough no nausea or vomiting no abdominal pain no diarrhea and no urinary symptoms On 05/09/2021 patient is alert and oriented. Patient to undergo EGD today with Dr. Leos. Patient denies chest pain or shortness breath. Patient denies nausea vomiting or diarrhea. Patient denies any urinary burning or frequency On 05/10/2021 patient alert and oriented sitting comfortably in chair. Patient did undergo EGD yesterday without dilation. Plans for EGD with dilation today per GI services. Patient denies chest pain or shortness of breath. Patient denies nausea vomiting or diarrhea. Patient denies any urinary burning or frequency. On 05/11/2021 patient was seen and examined on the medical floor she is alert and oriented 3 in no apparent distress she underwent surgery with Dr. Leos yesterday, patient had distal antrectomy with loop gastro-jejunostomy, today she is doing well she is sitting up in a chair she has an NG tube in, she is awaiting PICC line placement to start TPN, vital exam reveals a temperature of 98.2 pulse 69 respiration 18 blood pressure 139/68. White blood count 11.2 hemoglobin 11.3 platelet count 146 BUN 11 creatinine 0.7 On 05/12/2021 patient is alert and oriented 3. Patient is resting comfortably in bed. Patient has been started on TPN. Current temp 97.7, heart rate 57, respiratory rate 15, blood pressure 139/73 with a pulse ox of 97% on room air. Patient denies any acute complaints. Patient denies chest pain or shortness breath. Patient denies nausea vomiting or diarrhea. Patient denies any urinary burning or frequency. On 05/13/2021 patient was seen and examined on the medical floor, she is alert and oriented 3 in no apparent distress, she denies any pain or any complaints at this time. During the last night patient pulled out her PICC line and her NG tube. ICU nurse was able to obtain a peripheral line, patient is off TPN, and is maintained on IV fluid at this time. On 05/14/2021 patient is alert and oriented with episodes of confusion. Patient is currently sitting up in chair. Patient is complaining of mild abdominal discomfort. Patient remains without PICC line or NG tube Will assess on 022 patient still needs PICC line for nutritional support. Surgical services are following. This time patient denies chest pain or shortness of breath. Patient denies nausea vomiting or diarrhea. Patient denies any urinary burning or frequency Objective - Vital Signs Vital signs: Vital Signs Temp 98.4 F 05/14/21 07:06 Pulse 70 05/14/21 07:06 Resp 17 05/14/21 07:06 BP 153/66 05/14/21 07:06 Pulse Ox 97 05/14/21 07:06 Intake & Output 05/13/21 05/14/21 05/14/21 18:59 06:59 18:59 Intake Total 1230 Output Total 0 Balance 1230 0 Intake: Intake, IV Titration 750 Amount Dextrose 5%-0.45% NaCl 1, 750 000 ml @ 75 mls/hr IV . [id number] [facility] Rx#:[id number] Oral 480 Output: Stool 0 Other: Voiding Method Indwelling Catheter # Voids 700 - Exam In general patient is alert and oriented x 3 in no distress HEENT head normocephalic and atraumatic Neck is supple no JVD no goiter no lymphadenopathy no carotid bruit Chest examination reveals a few crackles in both lung bases no wheezing Cardiac exam reveals regular heart sounds S1 and S2 no gallops no murmurs Abdomen is soft nontender no organomegaly with normal bowel sounds Extremity exam reveals no edema no cyanosis or clubbing Neurological examination reveals no gross focal deficits - Labs CBC & Chem 7: 05/14/21 03:34 05/14/21 03:34 Labs: Abnormal Lab Results - Last 24 Hours (Table) 05/13/21 05/13/21 05/13/21 Range/Units 11:08 16:35 21:21 RBC (4.10-5.20) X 10*6/uL Hgb (12.0-15.0) g/dL Hct (37.2-46.3) % MCV (80.0-97.0) fL MCHC (32.0-37.0) g/dL Sodium (137-145) mmol/L Glucose (74-99) mg/dL POC Glucose (mg/dL) 118 H 108 H 102 H (75-99) mg/dL Calcium (8.4-10.2) mg/dL Total Protein (6.3-8.2) g/dL Albumin (3.5-5.0) g/dL 05/14/21 05/14/21 05/14/21 Range/Units 00:07 03:34 03:34 RBC 3.17 L (4.10-5.20) X 10*6/uL Hgb 9.9 L (12.0-15.0) g/dL Hct 32.1 L (37.2-46.3) % MCV 101.3 H (80.0-97.0) fL MCHC 30.8 L (32.0-37.0) g/dL Sodium 133 L (137-145) mmol/L Glucose 109 H (74-99) mg/dL POC Glucose (mg/dL) 102 H (75-99) mg/dL Calcium 8.1 L (8.4-10.2) mg/dL Total Protein 4.5 L (6.3-8.2) g/dL Albumin 2.2 L (3.5-5.0) g/dL 05/14/21 Range/Units 06:15 RBC (4.10-5.20) X 10*6/uL Hgb (12.0-15.0) g/dL Hct (37.2-46.3) % MCV (80.0-97.0) fL MCHC (32.0-37.0) g/dL Sodium (137-145) mmol/L Glucose (74-99) mg/dL POC Glucose (mg/dL) 103 H (75-99) mg/dL Calcium (8.4-10.2) mg/dL Total Protein (6.3-8.2) g/dL Albumin (3.5-5.0) g/dL Assessment and Plan Assessment: 1. Poor oral intake with failure to thrive secondary to gastric outlet obstruction patient underwent Distal antrectomy with loop gastro-jejunostomy on 05/10/2021 2. Patient recently underwent EGD. EGD revealing severe esophagitis with erosions and states involving the entirely mid and distal stoppages consistent with LAD grade C reflux esophagitis. Patient did have follow-up scheduled in early May 3. History of proximal atrial fibrillation. xarelto on hold. Maintained on heparin 4. History of CVA 5. History of type 2 diabetes mellitus 6. Hyperlipidemia. Maintained on statins 7. History of essential hypertension 8. Hypothyroidism 9. History of dementia 10. Hematuria per slot shift supervisor nurse, urology consultation requested. Patient was evaluated by urology services. Minimum blood noted on UA. No further workup and patient 11. Episode of tachycardia with heart rate up to 162 with possible cardiac arrhythmia, cardiology consultation was requested. Per cardiology continue Lopressor and lisinopril. Patient to being restarted back on oral anticoagulation at 20 mg daily once stable from GI standpoint. DVT prophylaxis heparin. GI prophylaxis Protonix Cardiology and GI services following Status post EGD on 05/09/2021 Status post distal antrectomy with loop gastrojejunostomy on 05/10/2021 Patient. PICC line and NG tube on 05/13/2021 Reassessment on 05/15/2021 to see patient will require nutritional support through PICC line
[2021-05-14 11:26] LABS: Glucose,Whole Blood 113 mg/dL (75-99)
[2021-05-14] MEDS: [UNRECOGNIZED DRUG - REMARK] IV SCH ×8 (11:44→23:34)
--- NOTE | 2021-05-14 12:48 | P.PN ---
Subjective Progress Note Date: 05/14/21 Principal diagnosis: Gastric polyp obstruction Patient feels well today. Seems more appropriate. Says she is having a small amount of pain this morning that was not there before. No bowel movement or flatus. No nausea or vomiting. She is hungry. Objective - Vital Signs Vital signs: Vital Signs Temp 98.4 F 05/14/21 07:06 Pulse 70 05/14/21 07:06 Resp 17 05/14/21 07:06 BP 153/66 05/14/21 07:06 Pulse Ox 97 05/14/21 07:06 Intake & Output 05/13/21 05/14/21 05/14/21 18:59 06:59 18:59 Intake Total 1230 Output Total 0 Balance 1230 0 Intake: Intake, IV Titration 750 Amount Dextrose 5%-0.45% NaCl 1, 750 000 ml @ 75 mls/hr IV . [id number] [facility] Rx#:[id number] Oral 480 Output: Stool 0 Other: Voiding Method Indwelling Catheter # Voids 700 - Exam Abdomen: Soft, nondistended, dressing clean and dry, minimal tenderness - Labs CBC & Chem 7: 05/14/21 03:34 05/14/21 03:34 Labs: Abnormal Lab Results - Last 24 Hours (Table) 05/13/21 05/13/21 05/14/21 Range/Units 16:35 21:21 00:07 RBC (4.10-5.20) X 10*6/uL Hgb (12.0-15.0) g/dL Hct (37.2-46.3) % MCV (80.0-97.0) fL MCHC (32.0-37.0) g/dL Sodium (137-145) mmol/L Glucose (74-99) mg/dL POC Glucose (mg/dL) 108 H 102 H 102 H (75-99) mg/dL Calcium (8.4-10.2) mg/dL Total Protein (6.3-8.2) g/dL Albumin (3.5-5.0) g/dL 05/14/21 05/14/21 05/14/21 Range/Units 03:34 03:34 06:15 RBC 3.17 L (4.10-5.20) X 10*6/uL Hgb 9.9 L (12.0-15.0) g/dL Hct 32.1 L (37.2-46.3) % MCV 101.3 H (80.0-97.0) fL MCHC 30.8 L (32.0-37.0) g/dL Sodium 133 L (137-145) mmol/L Glucose 109 H (74-99) mg/dL POC Glucose (mg/dL) 103 H (75-99) mg/dL Calcium 8.1 L (8.4-10.2) mg/dL Total Protein 4.5 L (6.3-8.2) g/dL Albumin 2.2 L (3.5-5.0) g/dL 05/14/21 Range/Units 11:24 RBC (4.10-5.20) X 10*6/uL Hgb (12.0-15.0) g/dL Hct (37.2-46.3) % MCV (80.0-97.0) fL MCHC (32.0-37.0) g/dL Sodium (137-145) mmol/L Glucose (74-99) mg/dL POC Glucose (mg/dL) 113 H (75-99) mg/dL Calcium (8.4-10.2) mg/dL Total Protein (6.3-8.2) g/dL Albumin (3.5-5.0) g/dL Assessment and Plan (1) Pyloric stenosis in adult Narrative/Plan: Patient doing well at this time. Less confusion today. Labs noted. Keep nothing by mouth except for ice chips. Current Visit: Yes Status: Acute Code(s): K31.1 - ADULT HYPERTROPHIC PYLORIC STENOSIS SNOMED Code(s): 854279313
[2021-05-14] MEDS: hydrALAZINE HCL 20 MG/ML 1 ML VIAL IVP PRN (14:34)
[2021-05-14 16:16] LABS: Glucose,Whole Blood 103 mg/dL (75-99)
[2021-05-14] MEDS: LATANOPROST 0.005% OPHTH DROPS 2.5 ML BTL BOTH EYES SCH (22:47)
[2021-05-15 00:33] LABS: Glucose,Whole Blood 92 mg/dL (75-99)
[2021-05-15] MEDS: INSULIN ASPART (NovoLOG) 100 UNIT/ML VIAL SQ SCH ×2 (00:36→06:20)
[2021-05-15 04:19] LABS: Magnesium 1.7 mg/dL (1.6-2.3); Phosphorus 3.7 mg/dL (2.5-4.5)
[2021-05-15 06:11] LABS: Glucose,Whole Blood 105 mg/dL (75-99)
[2021-05-15] MEDS: METOPROLOL SUCCINATE (ER) 25 MG TAB.ER.24H PO SCH (08:54)
[2021-05-15] MEDS: HEPARIN SODIUM,PORCINE/PF 5,000 UNIT/0.5 ML SYRINGE SQ SCH ×2 (08:55→19:35)
[2021-05-15] MEDS: PANTOPRAZOLE 40 MG/10 ML VIAL IV SCH (08:55)
[2021-05-15] MEDS: lisinopriL 5 MG TAB PO SCH (08:55)
[2021-05-15 09:24] LABS: African American GFR (CKD) 101.6 (60.0-200.0); Albumin 2.6 g/dL (3.8-4.9); Albumin/Globulin Ratio 1.3 (1.60-3.17); Anion Gap 10.1 mmol/L (10.00-18.00); BUN/Creat Ratio 17.6 Ratio (12.00-20.00); Blood Urea Nitrogen 8.8 mg/dL (9.0-27.0); Calcium 8.5 mg/dL (8.7-10.3); Carbon Dioxide 20.9 mmol/L (20.0-27.5); Non-African American GFR(CKD) 87.6 (60.0-200.0); Potassium 3.9 mmol/L (3.5-5.5); Total Bilirubin 0.3 mg/dL (0.30-1.20); Total Protein 4.6 g/dL (6.2-8.2)
--- NOTE | 2021-05-15 10:21 | P.PN ---
Subjective Progress Note Date: 05/15/21 CHIEF COMPLAINT: Nausea and vomiting HISTORY OF PRESENT ILLNESS: Patient is status post Distal antrectomy with loop gastro-jejunostomy for Gastrointestinal obstruction secondary to pyloric thickening on 05/10/2021. Patient is lying bed comfortably. Patient pulled her NG tube and PICC line out over the weekend. She denies any nausea or vomiting. No flatus or bowel movement. Denies any abdominal pain. Afebrile. CBC today pending magnesium 1.7 PHYSICAL EXAM: VITAL SIGNS: Reviewed. GENERAL: Well-developed in no acute distress. HEENT: No sclera icterus. Extraocular movements grossly intact. Moist buccal mucosa. Head is atraumatic, normocephalic. ABDOMEN: Soft. Nondistended. Incision site clean dry and intact NEUROLOGIC: Alert and oriented to self ASSESSMENT: 1. Gastrointestinal obstruction secondary to pyloric thickening status post distal antrectomy with loop gastro-jejunostomy 2. Underweight, BMI 18.2 3. Hypomagnesemia 4. Severe protein calorie malnutrition PLAN: -Start clear liquid diet -Discontinue Marlow catheter -Replace magnesium -Continue supportive care -Continue IV fluids -Continue pain medication as needed -Encouraged incentive spirometer use -Encouraged patient to increase activity -DVT prophylaxis subcu heparin and GI prophylaxis Protonix Physician Special Education Director note has been reviewed by physician. Signing provider agrees with the documented findings, assessment, and plan of care. Objective - Vital Signs Vital signs: Vital Signs Temp 98.6 F 05/15/21 08:50 Pulse 88 05/15/21 08:50 Resp 16 05/15/21 08:50 BP 124/85 05/15/21 08:50 Pulse Ox 97 05/15/21 08:50 Intake & Output 05/14/21 05/15/21 05/15/21 18:59 06:59 18:59 Output Total 950 1150 Balance -950 -1150 Output: Urine 950 1150 Stool 0 Other: Voiding Method Indwelling Catheter - Labs CBC & Chem 7: 05/14/21 03:34 05/15/21 03:39 Labs: Abnormal Lab Results - Last 24 Hours (Table) 05/14/21 05/14/21 05/15/21 Range/Units 11:24 16:14 03:39 BUN 8.8 L (9.0-27.0) mg/dL Creatinine 0.5 L (0.6-1.5) mg/dL POC Glucose (mg/dL) 113 H 103 H (75-99) mg/dL Calcium 8.5 L (8.7-10.3) mg/dL Total Protein 4.6 L (6.2-8.2) g/dL Albumin 2.6 L (3.8-4.9) g/dL Albumin/Globulin Ratio 1.30 L (1.60-3.17) g/dL 05/15/21 Range/Units 06:10 BUN (9.0-27.0) mg/dL Creatinine (0.6-1.5) mg/dL POC Glucose (mg/dL) 105 H (75-99) mg/dL Calcium (8.7-10.3) mg/dL Total Protein (6.2-8.2) g/dL Albumin (3.8-4.9) g/dL Albumin/Globulin Ratio (1.60-3.17) g/dL
[2021-05-15] MEDS ORDERED: MAGNESIUM SULFATE-D5W PMX 1 GM in DEXTROSE/WATER 1 100ML.BAG IVPB ONE (10:30)
[2021-05-15] MEDS: ACETAMINOPHEN TAB 325 MG TAB PO PRN ×2 (11:53→19:34)
[2021-05-15] MEDS: TIMOLOL 0.25% OPHTH DROPS 5 ML BTL BOTH EYES SCH (11:54)
[2021-05-15 12:03] LABS: Basophils # (A) 0.03 X 10*3/uL (0.00-0.10); Basophils % (A) 0.5 %; Eosinophils # (A) 0.25 X 10*3/uL (0.04-0.35); Eosinophils % (A) 4.1 %; HGB 10.6 g/dL (12.0-15.0); Immature Grans, Automated 0.3 %; Lymphocytes # (A) 1.87 X 10*3/uL (0.90-5.00); Lymphocytes % (A) 30.7 %; MCHC 31.2 g/dL (32.0-37.0); MCV 99.4 fL (80.0-97.0); Mean Platelet Volume 10.9 fL (9.5-12.2); Monocytes # (A) 0.54 X 10*3/uL (0.20-1.00); Monocytes % (A) 8.9 %; NRBC Per 100 WBC 0 /100 WBCS (0.0-0.0); Neutrophils # (A) 3.38 X 10*3/uL (1.80-7.70); Neutrophils % (A) 55.5 %; Platelet Count 282 X 10*3/uL (140-440); RBC 3.42 X 10*6/uL (4.10-5.20); RDW 14.2 % (11.5-14.5); WBC 6.09 X 10*3/uL (4.50-10.00)
--- NOTE | 2021-05-15 18:19 | P.PN ---
Subjective Progress Note Date: 05/15/21 Prerna Hyde, is a 86-year-old female patient who was sent to ER from [facility] with concerns of dehydration and failure to thrive. Patient has a known past medical history of esophageal strictures. Patient is scheduled pain for pyloric dilation and early May but over the past 2 weeks patient has lost 10 pounds and had increasing vomiting and unable to keep fluids down. Additional medical history includes CVA, diabetes mellitus, high disorder, GERD, hyperlipidemia, hypertension, thyroid disorder, dementia, anxiety and depression. Chest x-ray was completed showing no acute process. This time patient will be admitted patient initiated on IV hydration and surgical services have been consulted. Patient is currently sitting comfortably in chair. At this time patient denies chest pain or shortness breath. Patient denies nausea vomiting or diarrhea. Patient denies any urinary burning or frequency. On 05/06/2021 patient was seen and examined on the medical floor she is alert and oriented 3 in no apparent distress she is denying any pain or any symptoms at this time, her blood pressure is 144/60 pulse 65 respiration 18 temperature 97.6 and pulse ox 90% on room air. Throughout last night, I received multiple calls regarding this patient for hematuria, possible cardiac arrhythmia. Actually the nurse called in the A team at 1:30 AM due to concern about hematur ia, CBC was done, hemoglobin is stable, at this point I discontinued Lovenox and ordered SCD stockings for DVT prophylaxis, urology consultation was requested in that regard to hematuria. The nurse also had concern regarding possible cardiac arrhythmia at some point during the last night heart rate was up to 162 then was mostly in the 50s and 60s throughout the night, cardiology consultation was requested in that regard. At this time patient seems to be stable she is receiving IV fluid, I will decrease the dose to 75 mL per hour and give 1 dose of IV Lasix due to some fine crackles in her bases. Otherwise we are awaiting intervention by GI or surgery for esophageal stricture. At this time patient is not able to take any pills, I have added hydralazine IV on a when necessary basis for elevated blood pressure. Will resume oral medication after esophageal dilatation. On 05/07/2021 patient is alert and oriented 3 resting comfortably in bed. Temp 98, heart rate 90, respiratory rate 16, blood pressure 147/80 95% on room air. Patient was evaluated by the urology service is minimal blood noted on UA no further workup inpatient per urology. Patient also currently being followed by cardiology services for atrial fibrillation. Awaiting surgical plan in regards to possible dilation of esophageal stricture. Patient is currently resting in bed with eyes chest pain or shortness breath. Patient denies nausea vomiting or diarrhea. Denies any urinary burning or frequency On 05/08/2021 patient was seen and examined on the medical floor she is alert and oriented in no apparent distress she is able to tolerate liquid diet well at this time we are awaiting EGD with possible dilatatian tomorrow. Patient denies any fever or chills no headache or dizziness no chest pain no shortness of breath no cough no nausea or vomiting no abdominal pain no diarrhea and no urinary symptoms On 05/09/2021 patient is alert and oriented. Patient to undergo EGD today with Dr. Leos. Patient denies chest pain or shortness breath. Patient denies nausea vomiting or diarrhea. Patient denies any urinary burning or frequency On 05/10/2021 patient alert and oriented sitting comfortably in chair. Patient did undergo EGD yesterday without dilation. Plans for EGD with dilation today per GI services. Patient denies chest pain or shortness of breath. Patient denies nausea vomiting or diarrhea. Patient denies any urinary burning or frequency. On 05/11/2021 patient was seen and examined on the medical floor she is alert and oriented 3 in no apparent distress she underwent surgery with Dr. Leos yesterday, patient had distal antrectomy with loop gastro-jejunostomy, today she is doing well she is sitting up in a chair she has an NG tube in, she is awaiting PICC line placement to start TPN, vital exam reveals a temperature of 98.2 pulse 69 respiration 18 blood pressure 139/68. White blood count 11.2 hemoglobin 11.3 platelet count 146 BUN 11 creatinine 0.7 On 05/12/2021 patient is alert and oriented 3. Patient is resting comfortably in bed. Patient has been started on TPN. Current temp 97.7, heart rate 57, respiratory rate 15, blood pressure 139/73 with a pulse ox of 97% on room air. Patient denies any acute complaints. Patient denies chest pain or shortness breath. Patient denies nausea vomiting or diarrhea. Patient denies any urinary burning or frequency. On 05/13/2021 patient was seen and examined on the medical floor, she is alert and oriented 3 in no apparent distress, she denies any pain or any complaints at this time. During the last night patient pulled out her PICC line and her NG tube. ICU nurse was able to obtain a peripheral line, patient is off TPN, and is maintained on IV fluid at this time. On 05/14/2021 patient is alert and oriented with episodes of confusion. Patient is currently sitting up in chair. Patient is complaining of mild abdominal discomfort. Patient remains without PICC line or NG tube Will assess on 022 patient still needs PICC line for nutritional support. Surgical services are following. This time patient denies chest pain or shortness of breath. Patient denies nausea vomiting or diarrhea. Patient denies any urinary burning or frequency On 05/15/2021 patient was seen and examined on the medical floor she is alert and oriented 3 in no apparent distress she is sitting up in a chair and tolerating liquid diet well there is no fever or chills no headache or dizziness no chest pain no shortness of breath no cough no nausea or vomiting no abdominal pain no diarrhea and no urinary symptoms Objective - Vital Signs Vital signs: Vital Signs Temp 98.6 F 05/15/21 08:50 Pulse 88 05/15/21 08:50 Resp 16 05/15/21 08:50 BP 124/85 05/15/21 08:50 Pulse Ox 97 05/15/21 08:50 Intake & Output 05/14/21 05/15/21 05/15/21 18:59 06:59 18:59 Output Total 950 1150 Balance -950 -1150 Output: Urine 950 1150 Stool 0 Other: Voiding Method Indwelling Catheter Indwelling Catheter - Exam In general patient is alert and oriented x 3 in no distress HEENT head normocephalic and atraumatic Neck is supple no JVD no goiter no lymphadenopathy no carotid bruit Chest examination reveals a few crackles in both lung bases no wheezing Cardiac exam reveals regular heart sounds S1 and S2 no gallops no murmurs Abdomen is soft nontender no organomegaly with normal bowel sounds Extremity exam reveals no edema no cyanosis or clubbing Neurological examination reveals no gross focal deficits - Labs CBC & Chem 7: 05/15/21 03:39 05/15/21 03:39 Labs: Abnormal Lab Results - Last 24 Hours (Table) 05/14/21 05/15/21 05/15/21 Range/Units 16:14 03:39 03:39 RBC 3.42 L (4.10-5.20) X 10*6/uL Hgb 10.6 L (12.0-15.0) g/dL Hct 34.0 L (37.2-46.3) % MCV 99.4 H (80.0-97.0) fL MCHC 31.2 L (32.0-37.0) g/dL BUN 8.8 L (9.0-27.0) mg/dL Creatinine 0.5 L (0.6-1.5) mg/dL POC Glucose (mg/dL) 103 H (75-99) mg/dL Calcium 8.5 L (8.7-10.3) mg/dL Total Protein 4.6 L (6.2-8.2) g/dL Albumin 2.6 L (3.8-4.9) g/dL Albumin/Globulin Ratio 1.30 L (1.60-3.17) g/dL 05/15/21 Range/Units 06:10 RBC (4.10-5.20) X 10*6/uL Hgb (12.0-15.0) g/dL Hct (37.2-46.3) % MCV (80.0-97.0) fL MCHC (32.0-37.0) g/dL BUN (9.0-27.0) mg/dL Creatinine (0.6-1.5) mg/dL POC Glucose (mg/dL) 105 H (75-99) mg/dL Calcium (8.7-10.3) mg/dL Total Protein (6.2-8.2) g/dL Albumin (3.8-4.9) g/dL Albumin/Globulin Ratio (1.60-3.17) g/dL Assessment and Plan Assessment: 1. Poor oral intake with failure to thrive secondary to gastric outlet obstruction patient underwent Distal antrectomy with loop gastro-jejunostomy on 05/10/2021 2. Patient recently underwent EGD. EGD revealing severe esophagitis with erosions and states involving the entirely mid and distal stoppages consistent with LAD grade C reflux esophagitis. Patient did have follow-up scheduled in early May 3. History of proximal atrial fibrillation. xarelto on hold. Maintained on heparin 4. History of CVA 5. History of type 2 diabetes mellitus 6. Hyperlipidemia. Maintained on statins 7. History of essential hypertension 8. Hypothyroidism 9. History of dementia 10. Hematuria per film processing shift supervisor nurse, urology consultation requested. Patient was evaluated by urology services. Minimum blood noted on UA. No further workup and patient 11. Episode of tachycardia with heart rate up to 162 with possible cardiac arrhythmia, cardiology consultation was requested. Per cardiology continue Lopressor and lisinopril. Patient to being restarted back on oral anticoagulation at 20 mg daily once stable from GI standpoint. DVT prophylaxis heparin. GI prophylaxis Protonix Cardiology and GI services following Status post EGD on 05/09/2021 Status post distal antrectomy with loop gastrojejunostomy on 05/10/2021 Patient. PICC line and NG tube on 05/13/2021 Reassessment on 05/15/2021 to see patient will require nutritional support through PICC line
[2021-05-15] MEDS: DEXTROSE 5%-0.45% NACL 1,000 ML IV SCH ×2 (19:11→19:37)
[2021-05-15] MEDS: LATANOPROST 0.005% OPHTH DROPS 2.5 ML BTL BOTH EYES SCH (19:36)
[2021-05-16] MEDS: METOPROLOL SUCCINATE (ER) 25 MG TAB.ER.24H PO SCH (08:59)
[2021-05-16] MEDS: lisinopriL 5 MG TAB PO SCH (08:59)
[2021-05-16] MEDS: PANTOPRAZOLE 40 MG/10 ML VIAL IV SCH (09:03)
[2021-05-16] MEDS: TIMOLOL 0.25% OPHTH DROPS 5 ML BTL BOTH EYES SCH (09:05)
[2021-05-16] MEDS: HEPARIN SODIUM,PORCINE/PF 5,000 UNIT/0.5 ML SYRINGE SQ SCH ×2 (09:06→21:01)
[2021-05-16 09:46] LABS: Basophils # (A) 0 X 10*3/uL (0.00-0.10); Basophils % (A) 0 %; Eosinophils # (A) 0.23 X 10*3/uL (0.04-0.35); Eosinophils % (A) 4.6 %; HGB 10.3 g/dL (12.0-15.0); Immature Grans, Automated 0.2 %; Lymphocytes # (A) 0.97 X 10*3/uL (0.90-5.00); Lymphocytes % (A) 19.2 %; MCHC 31.2 g/dL (32.0-37.0); MCV 99.4 fL (80.0-97.0); Mean Platelet Volume 11.1 fL (9.5-12.2); Monocytes % (A) 7.9 %; NRBC Per 100 WBC 0 /100 WBCS (0.0-0.0); Neutrophils # (A) 3.43 X 10*3/uL (1.80-7.70); Neutrophils % (A) 68.1 %; Platelet Count 253 X 10*3/uL (140-440); RBC 3.32 X 10*6/uL (4.10-5.20); RDW 14.1 % (11.5-14.5); WBC 5.04 X 10*3/uL (4.50-10.00)
[2021-05-16 10:07] LABS: African American GFR (CKD) 101.6 (60.0-200.0); Albumin 2.8 g/dL (3.8-4.9); Albumin/Globulin Ratio 1.47 (1.60-3.17); Calcium 8.4 mg/dL (8.7-10.3); Globulin 1.9 g/dL (1.6-3.3); Non-African American GFR(CKD) 87.6 (60.0-200.0); Total Bilirubin 0.5 mg/dL (0.30-1.20); Total Protein 4.7 g/dL (6.2-8.2)
[2021-05-16] MEDS: DEXTROSE 5%-0.45% NACL 1,000 ML IV SCH (13:44)
--- NOTE | 2021-05-16 13:54 | P.PN ---
Subjective Progress Note Date: 05/16/21 CHIEF COMPLAINT: Nausea and vomiting HISTORY OF PRESENT ILLNESS: Patient is status post Distal antrectomy with loop gastro-jejunostomy for Gastrointestinal obstruction secondary to pyloric thickening on 05/10/2021. Patient is lying bed comfortably. Patient is having bowel movements. Abdominal pain controlled. She denies any nausea or vomiting. Afebrile. WBC is 5.0 for hematoma 10.3 platelets 253 Patient seen and examined with Dr. contreras PHYSICAL EXAM: VITAL SIGNS: Reviewed. GENERAL: Well-developed in no acute distress. HEENT: No sclera icterus. Extraocular movements grossly intact. Moist buccal mucosa. Head is atraumatic, normocephalic. ABDOMEN: Soft. Nondistended. Incision site clean dry and intact NEUROLOGIC: Alert and oriented to self ASSESSMENT: 1. Gastrointestinal obstruction secondary to pyloric thickening status post distal antrectomy with loop gastro-jejunostomy 2. Underweight, BMI 18.2 3. Hypomagnesemia 4. Severe protein calorie malnutrition PLAN: -Advance to full liquids -Check magnesium level -Continue supportive care -Continue pain medication as needed -Encouraged incentive spirometer use -Encouraged patient to increase activity -DVT prophylaxis subcu heparin and GI prophylaxis Protonix Physician Catering Driver note has been reviewed by physician. Signing provider agrees with the documented findings, assessment, and plan of care. Objective - Vital Signs Vital signs: Vital Signs Temp 98.0 F 05/16/21 06:58 Pulse 66 05/16/21 06:58 Resp 14 05/16/21 01:00 BP 153/67 05/16/21 06:58 Pulse Ox 100 05/16/21 06:58 Intake & Output 05/15/21 05/16/21 05/16/21 18:59 06:59 18:59 Output Total 350 1 1 Balance -350 -1 -1 Weight 49 kg 46.5 kg Output: Urine 350 Uretheral (Marlow) 350 Stool 1 1 Other: Voiding Method Indwelling Catheter Indwelling Catheter Indwelling Catheter # Voids 1 # Bowel Movements 1 1 - Labs CBC & Chem 7: 05/16/21 06:14 05/16/21 06:14 Labs: Abnormal Lab Results - Last 24 Hours (Table) 05/15/21 05/16/21 05/16/21 Range/Units 03:39 06:14 06:14 RBC 3.42 L 3.32 L (4.10-5.20) X 10*6/uL Hgb 10.6 L 10.3 L (12.0-15.0) g/dL Hct 34.0 L 33.0 L (37.2-46.3) % MCV 99.4 H 99.4 H (80.0-97.0) fL MCHC 31.2 L 31.2 L (32.0-37.0) g/dL BUN 8.0 L (9.0-27.0) mg/dL Creatinine 0.5 L (0.6-1.5) mg/dL Glucose 111 H (70-110) mg/dL Calcium 8.4 L (8.7-10.3) mg/dL Total Protein 4.7 L (6.2-8.2) g/dL Albumin 2.8 L (3.8-4.9) g/dL Albumin/Globulin Ratio 1.47 L (1.60-3.17) g/dL
--- NOTE | 2021-05-16 19:44 | P.PN ---
Subjective Progress Note Date: 05/16/21 Prerna Hyde, is a 86-year-old female patient who was sent to ER from [facility] with concerns of dehydration and failure to thrive. Patient has a known past medical history of esophageal strictures. Patient is scheduled pain for pyloric dilation and early May but over the past 2 weeks patient has lost 10 pounds and had increasing vomiting and unable to keep fluids down. Additional medical history includes CVA, diabetes mellitus, high disorder, GERD, hyperlipidemia, hypertension, thyroid disorder, dementia, anxiety and depression. Chest x-ray was completed showing no acute process. This time patient will be admitted patient initiated on IV hydration and surgical services have been consulted. Patient is currently sitting comfortably in chair. At this time patient denies chest pain or shortness breath. Patient denies nausea vomiting or diarrhea. Patient denies any urinary burning or frequency. On 05/06/2021 patient was seen and examined on the medical floor she is alert and oriented 3 in no apparent distress she is denying any pain or any symptoms at this time, her blood pressure is 144/60 pulse 65 respiration 18 temperature 97.6 and pulse ox 90% on room air. Throughout last night, I received multiple calls regarding this patient for hematuria, possible cardiac arrhythmia. Actually the nurse called in the A team at 1:30 AM due to concern about hematur ia, CBC was done, hemoglobin is stable, at this point I discontinued Lovenox and ordered SCD stockings for DVT prophylaxis, urology consultation was requested in that regard to hematuria. The nurse also had concern regarding possible cardiac arrhythmia at some point during the last night heart rate was up to 162 then was mostly in the 50s and 60s throughout the night, cardiology consultation was requested in that regard. At this time patient seems to be stable she is receiving IV fluid, I will decrease the dose to 75 mL per hour and give 1 dose of IV Lasix due to some fine crackles in her bases. Otherwise we are awaiting intervention by GI or surgery for esophageal stricture. At this time patient is not able to take any pills, I have added hydralazine IV on a when necessary basis for elevated blood pressure. Will resume oral medication after esophageal dilatation. On 05/07/2021 patient is alert and oriented 3 resting comfortably in bed. Temp 98, heart rate 90, respiratory rate 16, blood pressure 147/80 95% on room air. Patient was evaluated by the urology service is minimal blood noted on UA no further workup inpatient per urology. Patient also currently being followed by cardiology services for atrial fibrillation. Awaiting surgical plan in regards to possible dilation of esophageal stricture. Patient is currently resting in bed with eyes chest pain or shortness breath. Patient denies nausea vomiting or diarrhea. Denies any urinary burning or frequency On 05/08/2021 patient was seen and examined on the medical floor she is alert and oriented in no apparent distress she is able to tolerate liquid diet well at this time we are awaiting EGD with possible dilatatian tomorrow. Patient denies any fever or chills no headache or dizziness no chest pain no shortness of breath no cough no nausea or vomiting no abdominal pain no diarrhea and no urinary symptoms On 05/09/2021 patient is alert and oriented. Patient to undergo EGD today with Dr. Leos. Patient denies chest pain or shortness breath. Patient denies nausea vomiting or diarrhea. Patient denies any urinary burning or frequency On 05/10/2021 patient alert and oriented sitting comfortably in chair. Patient did undergo EGD yesterday without dilation. Plans for EGD with dilation today per GI services. Patient denies chest pain or shortness of breath. Patient denies nausea vomiting or diarrhea. Patient denies any urinary burning or frequency. On 05/11/2021 patient was seen and examined on the medical floor she is alert and oriented 3 in no apparent distress she underwent surgery with Dr. Leos yesterday, patient had distal antrectomy with loop gastro-jejunostomy, today she is doing well she is sitting up in a chair she has an NG tube in, she is awaiting PICC line placement to start TPN, vital exam reveals a temperature of 98.2 pulse 69 respiration 18 blood pressure 139/68. White blood count 11.2 hemoglobin 11.3 platelet count 146 BUN 11 creatinine 0.7 On 05/12/2021 patient is alert and oriented 3. Patient is resting comfortably in bed. Patient has been started on TPN. Current temp 97.7, heart rate 57, respiratory rate 15, blood pressure 139/73 with a pulse ox of 97% on room air. Patient denies any acute complaints. Patient denies chest pain or shortness breath. Patient denies nausea vomiting or diarrhea. Patient denies any urinary burning or frequency. On 05/13/2021 patient was seen and examined on the medical floor, she is alert and oriented 3 in no apparent distress, she denies any pain or any complaints at this time. During the last night patient pulled out her PICC line and her NG tube. ICU nurse was able to obtain a peripheral line, patient is off TPN, and is maintained on IV fluid at this time. On 05/14/2021 patient is alert and oriented with episodes of confusion. Patient is currently sitting up in chair. Patient is complaining of mild abdominal discomfort. Patient remains without PICC line or NG tube Will assess on 022 patient still needs PICC line for nutritional support. Surgical services are following. This time patient denies chest pain or shortness of breath. Patient denies nausea vomiting or diarrhea. Patient denies any urinary burning or frequency On 05/15/2021 patient was seen and examined on the medical floor she is alert and oriented 3 in no apparent distress she is sitting up in a chair and tolerating liquid diet well there is no fever or chills no headache or dizziness no chest pain no shortness of breath no cough no nausea or vomiting no abdominal pain no diarrhea and no urinary symptoms On 05/16/2021 patient was seen and examined on the medical floor she is alert and oriented 3 in no apparent distress she denies any symptoms she is sitting up in a chair her diet is being advanced slowly and patient is tolerating well there is no fever or chills no headache or dizziness no chest pain no shortness of breath no cough no nausea or vomiting no abdominal pain no diarrhea and no ur inary symptoms Objective - Vital Signs Vital signs: Vital Signs Temp 98.0 F 05/16/21 06:58 Pulse 66 05/16/21 06:58 Resp 14 05/16/21 01:00 BP 153/67 05/16/21 06:58 Pulse Ox 100 05/16/21 06:58 Intake & Output 05/15/21 05/16/21 05/16/21 18:59 06:59 18:59 Output Total 350 1 Balance -350 -1 Weight 49 kg 46.5 kg Output: Urine 350 Uretheral (Marlow) 350 Stool 1 Other: Voiding Method Indwelling Catheter Indwelling Catheter # Voids 1 # Bowel Movements 1 1 - Exam In general patient is alert and oriented x 3 in no distress HEENT head normocephalic and atraumatic Neck is supple no JVD no goiter no lymphadenopathy no carotid bruit Chest examination reveals a few crackles in both lung bases no wheezing Cardiac exam reveals regular heart sounds S1 and S2 no gallops no murmurs Abdomen is soft nontender no organomegaly with normal bowel sounds Extremity exam reveals no edema no cyanosis or clubbing Neurological examination reveals no gross focal deficits - Labs CBC & Chem 7: 05/16/21 06:14 05/16/21 06:14 Labs: Abnormal Lab Results - Last 24 Hours (Table) 05/15/21 Range/Units 03:39 RBC 3.42 L (4.10-5.20) X 10*6/uL Hgb 10.6 L (12.0-15.0) g/dL Hct 34.0 L (37.2-46.3) % MCV 99.4 H (80.0-97.0) fL MCHC 31.2 L (32.0-37.0) g/dL Assessment and Plan Assessment: 1. Poor oral intake with failure to thrive secondary to gastric outlet obstruction patient underwent Distal antrectomy with loop gastro-jejunostomy on 05/10/2021 2. Patient recently underwent EGD. EGD revealing severe esophagitis with erosions and states involving the entirely mid and distal stoppages consistent with LAD grade C reflux esophagitis. Patient did have follow-up scheduled in early May 3. History of proximal atrial fibrillation. xarelto on hold. Maintained on heparin 4. History of CVA 5. History of type 2 diabetes mellitus 6. Hyperlipidemia. Maintained on statins 7. History of essential hypertension 8. Hypothyroidism 9. History of dementia 10. Hematuria per nightclub manager nurse, urology consultation requested. Patient was evaluated by urology services. Minimum blood noted on UA. No further workup and patient 11. Episode of tachycardia with heart rate up to 162 with possible cardiac arrhythmia, cardiology consultation was requested. Per cardiology continue Lopressor and lisinopril. Patient to being restarted back on oral anticoagulation at 20 mg daily once stable from GI standpoint. DVT prophylaxis heparin. GI prophylaxis Protonix Cardiology and GI services following Status post EGD on 05/09/2021 Status post distal antrectomy with loop gastrojejunostomy on 05/10/2021 Patient. PICC line and NG tube on 05/13/2021 Reassessment on 05/15/2021 to see patient will require nutritional support through PICC line
[2021-05-16] MEDS: LATANOPROST 0.005% OPHTH DROPS 2.5 ML BTL BOTH EYES SCH (21:02)
[2021-05-17] MEDS: DEXTROSE 5%-0.45% NACL 1,000 ML IV SCH ×2 (06:34→14:09)
[2021-05-17 07:32] LABS: Glucose,Whole Blood 103 mg/dL (75-99)
[2021-05-17] MEDS: TIMOLOL 0.25% OPHTH DROPS 5 ML BTL BOTH EYES SCH (08:51)
[2021-05-17] MEDS: lisinopriL 5 MG TAB PO SCH (08:51)
[2021-05-17] MEDS: METOPROLOL SUCCINATE (ER) 25 MG TAB.ER.24H PO SCH (08:51)
[2021-05-17] MEDS: HEPARIN SODIUM,PORCINE/PF 5,000 UNIT/0.5 ML SYRINGE SQ SCH (08:52)
[2021-05-17] MEDS: PANTOPRAZOLE 40 MG/10 ML VIAL IV SCH (08:52)
[2021-05-17 10:10] LABS: Basophils # (A) 0.03 X 10*3/uL (0.00-0.10); Basophils % (A) 0.4 %; Eosinophils % (A) 4.1 %; HCT 31.7 % (37.2-46.3); HGB 9.9 g/dL (12.0-15.0); Immature Grans, Automated 0.3 %; Lymphocytes # (A) 1.64 X 10*3/uL (0.90-5.00); Lymphocytes % (A) 22.2 %; MCHC 31.2 g/dL (32.0-37.0); MCV 99.4 fL (80.0-97.0); Mean Platelet Volume 11.3 fL (9.5-12.2); Monocytes # (A) 0.53 X 10*3/uL (0.20-1.00); Monocytes % (A) 7.2 %; NRBC Per 100 WBC 0 /100 WBCS (0.0-0.0); Neutrophils # (A) 4.86 X 10*3/uL (1.80-7.70); Neutrophils % (A) 65.8 %; Platelet Count 260 X 10*3/uL (140-440); RBC 3.19 X 10*6/uL (4.10-5.20); RDW 14.1 % (11.5-14.5); WBC 7.38 X 10*3/uL (4.50-10.00)
[2021-05-17 10:27] LABS: African American GFR (CKD) 101.6 (60.0-200.0); Albumin 2.7 g/dL (3.8-4.9); Albumin/Globulin Ratio 1.35 (1.60-3.17); Anion Gap 9.6 mmol/L (10.00-18.00); BUN/Creat Ratio 9.6 Ratio (12.00-20.00); Blood Urea Nitrogen 4.8 mg/dL (9.0-27.0); Calcium 8.4 mg/dL (8.7-10.3); Carbon Dioxide 21.4 mmol/L (20.0-27.5); Magnesium 1.7 mg/dL (1.5-2.4); Non-African American GFR(CKD) 87.6 (60.0-200.0); Potassium 3.7 mmol/L (3.5-5.5); Total Bilirubin 0.3 mg/dL (0.30-1.20); Total Protein 4.7 g/dL (6.2-8.2)
[2021-05-17 11:21] LABS: Glucose,Whole Blood 108 mg/dL (75-99)
--- NOTE | 2021-05-17 11:32 | P.PN ---
Subjective Progress Note Date: 05/17/21 Prerna Hyde, is a 86-year-old female patient who was sent to ER from [facility] with concerns of dehydration and failure to thrive. Patient has a known past medical history of esophageal strictures. Patient is scheduled pain for pyloric dilation and early May but over the past 2 weeks patient has lost 10 pounds and had increasing vomiting and unable to keep fluids down. Additional medical history includes CVA, diabetes mellitus, high disorder, GERD, hyperlipidemia, hypertension, thyroid disorder, dementia, anxiety and depression. Chest x-ray was completed showing no acute process. This time patient will be admitted patient initiated on IV hydration and surgical services have been consulted. Patient is currently sitting comfortably in chair. At this time patient denies chest pain or shortness breath. Patient denies nausea vomiting or diarrhea. Patient denies any urinary burning or frequency. On 05/06/2021 patient was seen and examined on the medical floor she is alert and oriented 3 in no apparent distress she is denying any pain or any symptoms at this time, her blood pressure is 144/60 pulse 65 respiration 18 temperature 97.6 and pulse ox 90% on room air. Throughout last night, I received multiple calls regarding this patient for hematuria, possible cardiac arrhythmia. Actually the nurse called in the A team at 1:30 AM due to concern about hematur ia, CBC was done, hemoglobin is stable, at this point I discontinued Lovenox and ordered SCD stockings for DVT prophylaxis, urology consultation was requested in that regard to hematuria. The nurse also had concern regarding possible cardiac arrhythmia at some point during the last night heart rate was up to 162 then was mostly in the 50s and 60s throughout the night, cardiology consultation was requested in that regard. At this time patient seems to be stable she is receiving IV fluid, I will decrease the dose to 75 mL per hour and give 1 dose of IV Lasix due to some fine crackles in her bases. Otherwise we are awaiting intervention by GI or surgery for esophageal stricture. At this time patient is not able to take any pills, I have added hydralazine IV on a when necessary basis for elevated blood pressure. Will resume oral medication after esophageal dilatation. On 05/07/2021 patient is alert and oriented 3 resting comfortably in bed. Temp 98, heart rate 90, respiratory rate 16, blood pressure 147/80 95% on room air. Patient was evaluated by the urology service is minimal blood noted on UA no further workup inpatient per urology. Patient also currently being followed by cardiology services for atrial fibrillation. Awaiting surgical plan in regards to possible dilation of esophageal stricture. Patient is currently resting in bed with eyes chest pain or shortness breath. Patient denies nausea vomiting or diarrhea. Denies any urinary burning or frequency On 05/08/2021 patient was seen and examined on the medical floor she is alert and oriented in no apparent distress she is able to tolerate liquid diet well at this time we are awaiting EGD with possible dilatatian tomorrow. Patient denies any fever or chills no headache or dizziness no chest pain no shortness of breath no cough no nausea or vomiting no abdominal pain no diarrhea and no urinary symptoms On 05/09/2021 patient is alert and oriented. Patient to undergo EGD today with Dr. Leos. Patient denies chest pain or shortness breath. Patient denies nausea vomiting or diarrhea. Patient denies any urinary burning or frequency On 05/10/2021 patient alert and oriented sitting comfortably in chair. Patient did undergo EGD yesterday without dilation. Plans for EGD with dilation today per GI services. Patient denies chest pain or shortness of breath. Patient denies nausea vomiting or diarrhea. Patient denies any urinary burning or frequency. On 05/11/2021 patient was seen and examined on the medical floor she is alert and oriented 3 in no apparent distress she underwent surgery with Dr. Leos yesterday, patient had distal antrectomy with loop gastro-jejunostomy, today she is doing well she is sitting up in a chair she has an NG tube in, she is awaiting PICC line placement to start TPN, vital exam reveals a temperature of 98.2 pulse 69 respiration 18 blood pressure 139/68. White blood count 11.2 hemoglobin 11.3 platelet count 146 BUN 11 creatinine 0.7 On 05/12/2021 patient is alert and oriented 3. Patient is resting comfortably in bed. Patient has been started on TPN. Current temp 97.7, heart rate 57, respiratory rate 15, blood pressure 139/73 with a pulse ox of 97% on room air. Patient denies any acute complaints. Patient denies chest pain or shortness breath. Patient denies nausea vomiting or diarrhea. Patient denies any urinary burning or frequency. On 05/13/2021 patient was seen and examined on the medical floor, she is alert and oriented 3 in no apparent distress, she denies any pain or any complaints at this time. During the last night patient pulled out her PICC line and her NG tube. ICU nurse was able to obtain a peripheral line, patient is off TPN, and is maintained on IV fluid at this time. On 05/14/2021 patient is alert and oriented with episodes of confusion. Patient is currently sitting up in chair. Patient is complaining of mild abdominal discomfort. Patient remains without PICC line or NG tube Will assess on 022 patient still needs PICC line for nutritional support. Surgical services are following. This time patient denies chest pain or shortness of breath. Patient denies nausea vomiting or diarrhea. Patient denies any urinary burning or frequency On 05/15/2021 patient was seen and examined on the medical floor she is alert and oriented 3 in no apparent distress she is sitting up in a chair and tolerating liquid diet well there is no fever or chills no headache or dizziness no chest pain no shortness of breath no cough no nausea or vomiting no abdominal pain no diarrhea and no urinary symptoms On 05/16/2021 patient was seen and examined on the medical floor she is alert and oriented 3 in no apparent distress she denies any symptoms she is sitting up in a chair her diet is being advanced slowly and patient is tolerating well there is no fever or chills no headache or dizziness no chest pain no shortness of breath no cough no nausea or vomiting no abdominal pain no diarrhea and no ur inary symptoms On 05/17/2021 patient is alert and oriented sitting comfortably in chair. Patient has been advanced tonight to discuss case with surgical services okay to resume patient's Xarelto. This time patient denies chest pain or shortness of breath. Patient denies nausea vomiting or diarrhea. Patient denies any urinary burning or frequency Objective - Vital Signs Vital signs: Vital Signs Temp 98.1 F 05/17/21 08:00 Pulse 95 05/17/21 08:50 Resp 20 05/17/21 08:50 BP 141/60 05/17/21 08:50 Pulse Ox 99 05/17/21 08:00 Intake & Output 05/16/21 05/17/21 05/17/21 18:59 06:59 18:59 Intake Total 600 Output Total 1 Balance -1 600 Weight 46.5 kg Intake: Intake, IV Titration 600 Amount Dextrose 5%-0.45% NaCl 1, 600 000 ml @ 75 mls/hr IV . [id number] [facility] Rx#:[id number] Output: Stool 1 Other: Voiding Method Indwelling Catheter # Voids 3 6 # Bowel Movements 1 - Exam In general patient is alert and oriented x 3 in no distress HEENT head normocephalic and atraumatic Neck is supple no JVD no goiter no lymphadenopathy no carotid bruit Chest examination reveals a few crackles in both lung bases no wheezing Cardiac exam reveals regular heart sounds S1 and S2 no gallops no murmurs Abdomen is soft nontender no organomegaly with normal bowel sounds Extremity exam reveals no edema no cyanosis or clubbing Neurological examination reveals no gross focal deficits - Labs CBC & Chem 7: 05/17/21 03:51 05/17/21 03:51 Labs: Abnormal Lab Results - Last 24 Hours (Table) 05/17/21 05/17/21 05/17/21 Range/Units 03:51 03:51 07:22 RBC 3.19 L (4.10-5.20) X 10*6/uL Hgb 9.9 L (12.0-15.0) g/dL Hct 31.7 L (37.2-46.3) % MCV 99.4 H (80.0-97.0) fL MCHC 31.2 L (32.0-37.0) g/dL Anion Gap 9.60 L (10.00-18.00) mmol/L BUN 4.8 L (9.0-27.0) mg/dL Creatinine 0.5 L (0.6-1.5) mg/dL BUN/Creatinine Ratio 9.60 L (12.00-20.00) Ratio POC Glucose (mg/dL) 103 H (75-99) mg/dL Calcium 8.4 L (8.7-10.3) mg/dL Total Protein 4.7 L (6.2-8.2) g/dL Albumin 2.7 L (3.8-4.9) g/dL Albumin/Globulin Ratio 1.35 L (1.60-3.17) g/dL 05/17/21 Range/Units 11:14 RBC (4.10-5.20) X 10*6/uL Hgb (12.0-15.0) g/dL Hct (37.2-46.3) % MCV (80.0-97.0) fL MCHC (32.0-37.0) g/dL Anion Gap (10.00-18.00) mmol/L BUN (9.0-27.0) mg/dL Creatinine (0.6-1.5) mg/dL BUN/Creatinine Ratio (12.00-20.00) Ratio POC Glucose (mg/dL) 108 H (75-99) mg/dL Calcium (8.7-10.3) mg/dL Total Protein (6.2-8.2) g/dL Albumin (3.8-4.9) g/dL Albumin/Globulin Ratio (1.60-3.17) g/dL Assessment and Plan Assessment: 1. Poor oral intake with failure to thrive secondary to gastric outlet obstruction patient underwent Distal antrectomy with loop gastro-jejunostomy on 05/10/2021 2. Patient recently underwent EGD. EGD revealing severe esophagitis with erosi ons and states involving the entirely mid and distal stoppages consistent with LAD grade C reflux esophagitis. Patient did have follow-up scheduled in early May 3. History of proximal atrial fibrillation. xarelto on hold. Maintained on heparin per surgical services patient may be restarted on anticoagulation 4. History of CVA 5. History of type 2 diabetes mellitus 6. Hyperlipidemia. Maintained on statins 7. History of essential hypertension 8. Hypothyroidism 9. History of dementia 10. Hematuria per retail shift supervisor nurse, urology consultation requested. Patient was evaluated by urology services. Minimum blood noted on UA. No further workup and patient 11. Episode of tachycardia with heart rate up to 162 with possible cardiac arrhythmia, cardiology consultation was requested. Per cardiology continue Lopressor and lisinopril. Patient to being restarted back on oral anticoagulation at 20 mg daily once stable from GI standpoint. DVT prophylaxis . GI prophylaxis Protonix Cardiology and GI services following Status post EGD on 05/09/2021 Status post distal antrectomy with loop gastrojejunostomy on 05/10/2021 Patient pulled out PICC line and NG tube on 05/13/2021 Reassessment on 05/15/2021 to see patient will require nutritional support through PICC line Diet currently being advanced to full liquid diet
--- NOTE | 2021-05-17 13:18 | P.PN ---
Subjective Progress Note Date: 05/17/21 CHIEF COMPLAINT: Nausea and vomiting HISTORY OF PRESENT ILLNESS: Patient is status post Distal antrectomy with loop gastro-jejunostomy for Gastrointestinal obstruction secondary to pyloric thickening on 05/10/2021. Patient is lying bed comfortably. Patient is having bowel movements. Abdominal pain controlled with Tylenol. She denies any nausea or vomiting. Patient has been ambulating with physical therapy. Afebrile. WBC 7.38 Hgb 9.9 platelets 260 creatinine 0.5 Mg 1.7 Patient seen and examined with Dr. contreras PHYSICAL EXAM: VITAL SIGNS: Reviewed. GENERAL: Well-developed in no acute distress. HEENT: No sclera icterus. Extraocular movements grossly intact. Moist buccal mucosa. Head is atraumatic, normocephalic. ABDOMEN: Soft. Nondistended. Incision site clean dry and intact NEUROLOGIC: Alert and oriented to self ASSESSMENT: 1. Gastrointestinal obstruction secondary to pyloric thickening status post distal antrectomy with loop gastro-jejunostomy 2. Underweight, BMI 18.2 3. Hypomagnesemia 4. Severe protein calorie malnutrition PLAN: -Okay to discharge from surgical standpoint when medically cleared -Advance diet to regular -Okay to resume Xarelto from surgical standpoint -replace Mg -Continue supportive care -Continue pain medication as needed -Encouraged incentive spirometer use -Encouraged patient to increase activity -GI prophylaxis Protonix Physician Service Technician note has been reviewed by physician. Signing provider agrees with the documented findings, assessment, and plan of care. Objective - Vital Signs Vital signs: Vital Signs Temp 98.1 F 05/17/21 08:00 Pulse 76 05/17/21 12:23 Resp 20 05/17/21 08:50 BP 141/60 05/17/21 08:50 Pulse Ox 99 05/17/21 08:00 Intake & Output 05/16/21 05/17/21 05/17/21 18:59 06:59 18:59 Intake Total 600 Output Total 1 Balance -1 600 Weight 46.5 kg Intake: Intake, IV Titration 600 Amount Dextrose 5%-0.45% NaCl 1, 600 000 ml @ 75 mls/hr IV . [id number] RUFINA Rx#:[id number] Output: Stool 1 Other: Voiding Method Indwelling Catheter # Voids 3 6 # Bowel Movements 1 - Labs CBC & Chem 7: 05/17/21 03:51 05/17/21 03:51 Labs: Abnormal Lab Results - Last 24 Hours (Table) 05/17/21 05/17/21 05/17/21 Range/Units 03:51 03:51 07:22 RBC 3.19 L (4.10-5.20) X 10*6/uL Hgb 9.9 L (12.0-15.0) g/dL Hct 31.7 L (37.2-46.3) % MCV 99.4 H (80.0-97.0) fL MCHC 31.2 L (32.0-37.0) g/dL Anion Gap 9.60 L (10.00-18.00) mmol/L BUN 4.8 L (9.0-27.0) mg/dL Creatinine 0.5 L (0.6-1.5) mg/dL BUN/Creatinine Ratio 9.60 L (12.00-20.00) Ratio POC Glucose (mg/dL) 103 H (75-99) mg/dL Calcium 8.4 L (8.7-10.3) mg/dL Total Protein 4.7 L (6.2-8.2) g/dL Albumin 2.7 L (3.8-4.9) g/dL Albumin/Globulin Ratio 1.35 L (1.60-3.17) g/dL 05/17/21 Range/Units 11:14 RBC (4.10-5.20) X 10*6/uL Hgb (12.0-15.0) g/dL Hct (37.2-46.3) % MCV (80.0-97.0) fL MCHC (32.0-37.0) g/dL Anion Gap (10.00-18.00) mmol/L BUN (9.0-27.0) mg/dL Creatinine (0.6-1.5) mg/dL BUN/Creatinine Ratio (12.00-20.00) Ratio POC Glucose (mg/dL) 108 H (75-99) mg/dL Calcium (8.7-10.3) mg/dL Total Protein (6.2-8.2) g/dL Albumin (3.8-4.9) g/dL Albumin/Globulin Ratio (1.60-3.17) g/dL
[2021-05-17] MEDS ORDERED: MAGNESIUM SULFATE-D5W PMX 1 GM in DEXTROSE/WATER 1 100ML.BAG IVPB ONE (13:30)
[2021-05-17] MEDS: RIVAROXABAN 10 MG TAB PO SCH (17:18)
[2021-05-17] MEDS: LATANOPROST 0.005% OPHTH DROPS 2.5 ML BTL BOTH EYES SCH (21:58)
[2021-05-18] MEDS: DEXTROSE 5%-0.45% NACL 1,000 ML IV SCH (05:01)
[2021-05-18] MEDS ORDERED: LEVOTHYROXINE 25 MCG TAB PO SCH (06:30)
[2021-05-18 07:05] LABS: Glucose,Whole Blood 129 mg/dL (75-99)
[2021-05-18 07:37] VITALS: PULSE 51; RESP 14
[2021-05-18] MEDS: RIVAROXABAN 10 MG TAB PO SCH (09:00)
[2021-05-18] MEDS: METOPROLOL SUCCINATE (ER) 25 MG TAB.ER.24H PO SCH (09:00)
[2021-05-18] MEDS: lisinopriL 5 MG TAB PO SCH (09:01)
[2021-05-18] MEDS: PANTOPRAZOLE 40 MG/10 ML VIAL IV SCH (09:01)
[2021-05-18] MEDS: TIMOLOL 0.25% OPHTH DROPS 5 ML BTL BOTH EYES SCH (09:01)
[2021-05-18 09:30] LABS: Basophils # (A) 0.02 X 10*3/uL (0.00-0.10); Basophils % (A) 0.3 %; Eosinophils # (A) 0.18 X 10*3/uL (0.04-0.35); Eosinophils % (A) 2.9 %; HCT 31.8 % (37.2-46.3); Immature Grans, Automated 0.3 %; Lymphocytes # (A) 1.62 X 10*3/uL (0.90-5.00); Lymphocytes % (A) 26.3 %; MCH 31.3 pg (27.0-32.0); MCHC 31.4 g/dL (32.0-37.0); MCV 99.4 fL (80.0-97.0); Monocytes # (A) 0.37 X 10*3/uL (0.20-1.00); NRBC Per 100 WBC 0 /100 WBCS (0.0-0.0); Neutrophils # (A) 3.94 X 10*3/uL (1.80-7.70); Neutrophils % (A) 64.2 %; Platelet Count 276 X 10*3/uL (140-440); RDW 14.4 % (11.5-14.5); WBC 6.15 X 10*3/uL (4.50-10.00)
[2021-05-18 09:45] LABS: African American GFR (CKD) 101.6 (60.0-200.0); Albumin 2.6 g/dL (3.8-4.9); Albumin/Globulin Ratio 1.44 (1.60-3.17); Anion Gap 9.5 mmol/L (10.00-18.00); BUN/Creat Ratio 8.4 Ratio (12.00-20.00); Blood Urea Nitrogen 4.2 mg/dL (9.0-27.0); Calcium 8.2 mg/dL (8.7-10.3); Carbon Dioxide 22.5 mmol/L (20.0-27.5); Globulin 1.8 g/dL (1.6-3.3); Non-African American GFR(CKD) 87.6 (60.0-200.0); Potassium 3.4 mmol/L (3.5-5.5); Total Bilirubin 0.3 mg/dL (0.30-1.20); Total Protein 4.4 g/dL (6.2-8.2)
[2021-05-18] MEDS ORDERED: POTASSIUM CHLORIDE ER 20 MEQ TAB.ER PO STA (11:01)
--- NOTE | 2021-05-18 11:03 | P.PN ---
Subjective Progress Note Date: 05/18/21 CHIEF COMPLAINT: Nausea and vomiting HISTORY OF PRESENT ILLNESS: Patient is status post Distal antrectomy with loop gastro-jejunostomy for Gastrointestinal obstruction secondary to pyloric thickening on 05/10/2021. Patient is lying bed comfortably. Patient is having bowel movements. Abdominal pain controlled with Tylenol. She denies any nausea or vomiting. Patient has been ambulating with physical therapy. Afebrile. WBC 6.15 Hgb 10 sodium 139 potassium 3.4 creatinine 0.5 magnesium pending Patient seen and examined with Dr. contreras PHYSICAL EXAM: VITAL SIGNS: Reviewed. GENERAL: Well-developed in no acute distress. HEENT: No sclera icterus. Extraocular movements grossly intact. Moist buccal mucosa. Head is atraumatic, normocephalic. ABDOMEN: Soft. Nondistended. Incision site clean dry and intact NEUROLOGIC: Alert and oriented to self ASSESSMENT: 1. Gastrointestinal obstruction secondary to pyloric thickening status post distal antrectomy with loop gastro-jejunostomy 2. Underweight, BMI 18.2 3. Hypomagnesemia 4. Severe protein calorie malnutrition PLAN: -Okay to discharge from surgical standpoint when medically cleared -continue regular diet -Okay to resume Xarelto from surgical standpoint -follow-up on potassium level -Continue supportive care -Continue Tylenol as needed for pain -Encouraged incentive spirometer use -Encouraged patient to increase activity -GI prophylaxis Protonix Physician Silo Tender note has been reviewed by physician. Signing provider agrees with the documented findings, assessment, and plan of care. Objective - Vital Signs Vital signs: Vital Signs Temp 98.5 F 05/18/21 07:00 Pulse 51 L 05/18/21 07:00 Resp 14 05/18/21 07:00 BP 145/72 05/18/21 07:00 Pulse Ox 95 05/18/21 07:00 Intake & Output 05/17/21 05/18/21 05/18/21 18:59 06:59 18:59 Intake Total 600 480 Balance 600 480 Weight 47 kg Intake: Intake, IV Titration 600 Amount Dextrose 5%-0.45% NaCl 1, 600 000 ml @ 75 mls/hr IV . [id number] RUFINA Rx#:[id number] Oral 480 Other: # Voids 3 # Bowel Movements 1 - Labs CBC & Chem 7: 05/18/21 04:59 05/18/21 04:59 Labs: Abnormal Lab Results - Last 24 Hours (Table) 05/17/21 05/18/21 05/18/21 Range/Units 11:14 04:59 04:59 RBC 3.20 L (4.10-5.20) X 10*6/uL Hgb 10.0 L (12.0-15.0) g/dL Hct 31.8 L (37.2-46.3) % MCV 99.4 H (80.0-97.0) fL MCHC 31.4 L (32.0-37.0) g/dL Potassium 3.4 L (3.5-5.5) mmol/L Anion Gap 9.50 L (10.00-18.00) mmol/L BUN 4.2 L (9.0-27.0) mg/dL Creatinine 0.5 L (0.6-1.5) mg/dL BUN/Creatinine Ratio 8.40 L (12.00-20.00) Ratio Glucose 112 H (70-110) mg/dL POC Glucose (mg/dL) 108 H (75-99) mg/dL Calcium 8.2 L (8.7-10.3) mg/dL Total Protein 4.4 L (6.2-8.2) g/dL Albumin 2.6 L (3.8-4.9) g/dL Albumin/Globulin Ratio 1.44 L (1.60-3.17) g/dL 05/18/21 Range/Units 07:03 RBC (4.10-5.20) X 10*6/uL Hgb (12.0-15.0) g/dL Hct (37.2-46.3) % MCV (80.0-97.0) fL MCHC (32.0-37.0) g/dL Potassium (3.5-5.5) mmol/L Anion Gap (10.00-18.00) mmol/L BUN (9.0-27.0) mg/dL Creatinine (0.6-1.5) mg/dL BUN/Creatinine Ratio (12.00-20.00) Ratio Glucose (70-110) mg/dL POC Glucose (mg/dL) 129 H (75-99) mg/dL Calcium (8.7-10.3) mg/dL Total Protein (6.2-8.2) g/dL Albumin (3.8-4.9) g/dL Albumin/Globulin Ratio (1.60-3.17) g/dL
[2021-05-18 11:31] LABS: Glucose,Whole Blood 103 mg/dL (75-99)
--- NOTE | 2021-05-18 14:05 | P.DS ---
Providers Date of admission: 05/06/21 12:39 Expected date of discharge: 05/18/21 Attending physician: Melissa Leiva Consults: 05/04/21 17:28 Consult Physician Routine Consulting Provider: Zoran Leos Consult Reason/Comments: Vomiting, history of esophageal stricture Do you want consulting provider notified?: Yes 05/06/21 08:04 Consult Physician Routine Consulting Provider: Oskar Guerra Consult Reason/Comments: hematuria Do you want consulting provider notified?: Yes 05/06/21 11:03 Consult Physician Routine Consulting Provider: Andrei Zhao Consult Reason/Comments: abnormal telemetry Do you want consulting provider notified?: Yes Primary care physician: Melissa Cali [facility] Course: Diagnoses on discharge: 1. Poor oral intake with failure to thrive secondary to gastric outlet obstruction patient underwent Distal antrectomy with loop gastro-jejunostomy on 05/10/2021 2. Patient recently underwent EGD. EGD revealing severe esophagitis with erosions and states involving the entirely mid and distal stoppages consistent with LAD grade C reflux esophagitis. EGD during this admission revealed, Gastrointestinal obstruction secondary to pyloric thickening patient underwent distal antrectomy with loop gastro-jejunostomy 3. History of proximal atrial fibrillation. xarelto on hold. Maintained on heparin per surgical services patient may be restarted on anticoagulation 4. History of CVA 5. History of type 2 diabetes mellitus 6. Hyperlipidemia. Maintained on statins 7. History of essential hypertension 8. Hypothyroidism 9. History of dementia 10. Hematuria per night time nanny nurse, urology consultation requested. Patient was evaluated by urology services. Minimum blood noted on UA. No further workup and patient 11. Episode of tachycardia with heart rate up to 162 with possible cardiac arrhythmia, cardiology consultation was requested. Per cardiology continue Lopressor and lisinopril. Patient to being restarted back on oral anticoagulation at 20 mg daily once stable from GI standpoint. Hospital course: Prerna Hyde, is a 86-year-old female patient who was sent to ER from [facility] with concerns of dehydration and failure to thrive. Patient has a known past medical history of esophageal strictures. Patient is scheduled pain for pyloric dilation and early May but over the past 2 weeks patient has lost 10 pounds and had increasing vomiting and unable to keep fluids down. Additional medical history includes CVA, diabetes mellitus, high disorder, GERD, hyperlipidemia, hypertension, thyroid disorder, dementia, anxiety and depression. Chest x-ray was completed showing no acute process. This time patient will be admitted patient initiated on IV hydration and surgical services have been consulted. Patient is currently sitting comfortably in chair. At this time patient denies chest pain or shortness breath. Patient denies nausea vomiting or diarrhea. Patient denies any urinary burning or frequency. On 05/06/2021 patient was seen and examined on the medical floor she is alert and oriented 3 in no apparent distress she is denying any pain or any symptoms at this time, her blood pressure is 144/60 pulse 65 respiration 18 temperature 97.6 and pulse ox 90% on room air. Throughout last night, I received multiple calls regarding this patient for hematuria, possible cardiac arrhythmia. Actually the nurse called in the A team at 1:30 AM due to concern about hematuria, CBC was done, hemoglobin is stable, at this point I discontinued Lovenox and ordered SCD stockings for DVT prophylaxis, urology consultation was requested in that regard to hematuria. The nurse also had concern regarding possible cardiac arrhythmia at some point during the last night heart rate was up to 162 then was mostly in the 50s and 60s throughout the night, cardiology consultation was requested in that regard. At this time patient seems to be stable she is receiving IV fluid, I will decrease the dose to 75 mL per hour and give 1 dose of IV Lasix due to some fine crackles in her bases. Otherwise we are awaiting intervention by GI or surgery for esophageal stricture. At this time patient is not able to take any pills, I have added hydralazine IV on a when necessary basis for elevated blood pressure. Will resume oral medication after esophageal dilatation. On 05/07/2021 patient is alert and oriented 3 resting comfortably in bed. Temp 98, heart rate 90, respiratory rate 16, blood pressure 147/80 95% on room air. Patient was evaluated by the urology service is minimal blood noted on UA no further workup inpatient per urology. Patient also currently being followed by cardiology services for atrial fibrillation. Awaiting surgical plan in regards to possible dilation of esophageal stricture. Patient is currently resting in bed with eyes chest pain or shortness breath. Patient denies nausea vomiting or diarrhea. Denies any urinary burning or frequency On 05/08/2021 patient was seen and examined on the medical floor she is alert and oriented in no apparent distress she is able to tolerate liquid diet well at this time we are awaiting EGD with possible dilatatian tomorrow. Patient denies any fever or chills no headache or dizziness no chest pain no shortness of breath no cough no nausea or vomiting no abdominal pain no diarrhea and no urinary symptoms On 05/09/2021 patient is alert and oriented. Patient to undergo EGD today with Dr. Leos. Patient denies chest pain or shortness breath. Patient denies nausea vomiting or diarrhea. Patient denies any urinary burning or frequency On 05/10/2021 patient alert and oriented sitting comfortably in chair. Patient did undergo EGD yesterday without dilation. Plans for EGD with dilation today per GI services. Patient denies chest pain or shortness of breath. Patient denies nausea vomiting or diarrhea. Patient denies any urinary burning or frequency. On 05/11/2021 patient was seen and examined on the medical floor she is alert and oriented 3 in no apparent distress she underwent surgery with Dr. Leos yesterday, patient had distal antrectomy with loop gastro-jejunostomy, today she is doing well she is sitting up in a chair she has an NG tube in, she is awaiting PICC line placement to start TPN, vital exam reveals a temperature of 98.2 pulse 69 respiration 18 blood pressure 139/68. White blood count 11.2 hemoglobin 11.3 platelet count 146 BUN 11 creatinine 0.7 On 05/12/2021 patient is alert and oriented 3. Patient is resting comfortably in bed. Patient has been started on TPN. Current temp 97.7, heart rate 57, respiratory rate 15, blood pressure 139/73 with a pulse ox of 97% on room air. Patient denies any acute complaints. Patient denies chest pain or shortness breath. Patient denies nausea vomiting or diarrhea. Patient denies any urinary burning or frequency. On 05/13/2021 patient was seen and examined on the medical floor, she is alert and oriented 3 in no apparent distress, she denies any pain or any complaints at this time. During the last night patient pulled out her PICC line and her NG tube. ICU nurse was able to obtain a peripheral line, patient is off TPN, and is maintained on IV fluid at this time. On 05/14/2021 patient is alert and oriented with episodes of confusion. Patient is currently sitting up in chair. Patient is complaining of mild abdominal discomfort. Patient remains without PICC line or NG tube Will assess on 05/15/2021 patient still needs PICC line for nutritional support. Surgical services are following. This time patient denies chest pain or shortness of breath. Patient denies nausea vomiting or diarrhea. Patient denies any urinary burning or frequency On 05/15/2021 patient was seen and examined on the medical floor she is alert and oriented 3 in no apparent distress she is sitting up in a chair and tolerating liquid diet well there is no fever or chills no headache or dizziness no chest pain no shortness of breath no cough no nausea or vomiting no abdominal pain no diarrhea and no urinary symptoms On 05/16/2021 patient was seen and examined on the medical floor she is alert and oriented 3 in no apparent distress she denies any symptoms she is sitting up in a chair her diet is being advanced slowly and patient is tolerating well there is no fever or chills no headache or dizziness no chest pain no shortness of breath no cough no nausea or vomiting no abdominal pain no diarrhea and no urinary symptoms On 05/17/2021 patient is alert and oriented sitting comfortably in chair. Patient has been advanced tonight to discuss case with surgical services okay to resume patient's Xarelto. This time patient denies chest pain or shortness of breath. Patient denies nausea vomiting or diarrhea. Patient denies any urinary burning or frequency On 05/18/2021 patient is alert and oriented sitting comfortably in chair. she is alert and oriented 3 in no apparent distress she is sitting up in a chair and tolerating liquid diet well there is no fever or chills no headache or dizziness no chest pain no shortness of breath no cough no nausea or vomiting no abdominal pain no diarrhea and no urinary symptoms. She was cleared by surgery to return to [facility]. patient will be discharged today, will follow closely. Patient Condition at Discharge: Fair Plan - Discharge Summary Discharge Rx Participant: No New Discharge Prescriptions: New Metoprolol Succinate (ER) [Toprol XL] 25 mg PO DAILY Continue Cholecalciferol [Vitamin D3 (25 Mcg = 1000 Iu)] 25 mcg PO DAILY@0800 Aspirin EC [Ecotrin Low Dose] 81 mg PO DAILY@0800 timoloL maleate [Timolol Maleate] 1 drop BOTH EYES DAILY@0800 rOPINIRole HCL [Requip] 3 mg PO HS@2100 Donepezil HCl [Aricept] 5 mg PO HS@2100 Ferrous Sulfate [Iron (65 MG Elemental)] 325 mg PO DAILY@0800 Latanoprost Ophth [Xalatan 0.005%] 1 drop BOTH EYES HS@2100 Potassium Chloride ER [K-Dur 10] 10 meq PO DAILY@1700 lisinopriL [Prinivil] 5 mg PO DAILY@0800 Rosuvastatin Calcium [Crestor] 5 mg PO HS@2100 Mirtazapine [Remeron] 30 mg PO HS@2100 Sennosides [Senna] 17.2 mg PO HS@2100 Acetaminophen Tab [Tylenol] 650 mg PO Q6HR PRN tab PRN Reason: Mild Pain Or Fever > 100.5 Pantoprazole [Protonix] 40 mg PO BID@0800,1700 Rivaroxaban [Xarelto] 10 mg PO DAILY@0800 bisacodyL [Dulcolax] 10 mg RECTAL DAILY PRN PRN Reason: Constipation Ensure Clear 237 ml PO TID@0800,1200,1700 Levothyroxine Sodium [Synthroid] 25 mcg PO DAILY@0800 HYDROcodone/APAP 7.5-325MG [[place] 7.5-325] 1 tab PO Q4H PRN #4 tab PRN Reason: Pain Discontinued guaiFENesin [guaiFENesin Oral Solution] 100 mg PO Q4H PRN PRN Reason: Cough Loperamide HCl [Imodium A-D] 2 - 4 mg PO QID PRN PRN Reason: Diarrhea Menthol [Biofreeze] 1 applic TOPICAL BID PRN PRN Reason: lower back pain Na Phos,M-B/Na Phos,Di-Ba [Fleet Adult] 133 ml RECTAL DAILY PRN PRN Reason: Constipation Magnesium Hydroxide [Milk of Magnesia Concentrate] 7,200 mg PO Q48H PRN PRN Reason: Constipation Discharge Medication List Cholecalciferol [Vitamin D3 (25 Mcg = 1000 Iu)] 25 mcg PO DAILY@0800 10/02/13 [History] Aspirin EC [Ecotrin Low Dose] 81 mg PO DAILY@0800 12/23/15 [History] rOPINIRole HCL [Requip] 3 mg PO HS@2100 12/23/15 [History] timoloL maleate [Timolol Maleate] 1 drop BOTH EYES DAILY@0812/23/15 [History] Donepezil HCl [Aricept] 5 mg PO HS@209910/15/17 [History] Ferrous Sulfate [Iron (65 MG Elemental)] 325 mg PO DAILY@79912/25/17 [History] Latanoprost Ophth [Xalatan 0.005%] 1 drop BOTH EYES HS@209912/25/17 [History] Potassium Chloride ER [K-Dur 10] 10 meq PO DAILY@169912/25/17 [History] lisinopriL [Prinivil] 5 mg PO DAILY@79912/30/17 [History] Rivaroxaban [Xarelto] 10 mg PO DAILY@79902/14/21 [History] Rosuvastatin Calcium [Crestor] 5 mg PO HS@209902/14/21 [History] Ensure Clear 237 ml PO TID@0800,1200,1700 03/08/21 [History] Levothyroxine Sodium [Synthroid] 25 mcg PO DAILY@79903/08/21 [History] Mirtazapine [Remeron] 30 mg PO HS@209903/08/21 [History] Sennosides [Senna] 17.2 mg PO HS@209903/08/21 [History] bisacodyL [Dulcolax] 10 mg RECTAL DAILY PRN 03/08/21 [History] Acetaminophen Tab [Tylenol] 650 mg PO Q6HR PRN tab 03/10/21 [Rx] HYDROcodone/APAP 7.5-325MG [[place] 7.5-325] 1 tab PO Q4H PRN #4 tab 03/10/21 [Rx] Pantoprazole [Protonix] 40 mg PO BID@0800,1700 05/04/21 [History] Metoprolol Succinate (ER) [Toprol XL] 25 mg PO DAILY 05/18/21 [Rx] Follow up Appointment(s)/Referral(s): Andrei Zhao MD [STAFF PHYSICIAN] - 2 Weeks Melissa Leiva MD [Primary Care Provider] - 1-2 days Zoran Leos MD [STAFF PHYSICIAN] - 1 Week Activity/Diet/Wound Care/Special Instructions: No lifting over 10 pounds You may shower. No soaking or tub baths for 2 weeks Very light activity until you are reevaluated at your follow up appointment with your surgeon
[2021-05-18 14:13] VITALS: BMI 17.7
[2021-05-18 14:34] VITALS: BP 145/73; TEMP 98.3
== END 2021-05-18 16:09 | DRG 326 ==
LOC: EC 15:10 → 4SSUR 17:28 → OBSVTOIN 05-06 12:39
PROVIDERS: ADMIT Internal Medicine; ATTEND Internal Medicine
PROC: 0DJ08ZZ Inspection of Upper Intestinal Tract, Via Natural or Artificial Opening Endoscopic (ICD-10-PCS; 2021-05-09)
PROC: 0D160ZA Bypass Stomach to Jejunum, Open Approach (ICD-10-PCS; 2021-05-10)
PROC: 0D870ZZ Division of Stomach, Pylorus, Open Approach (ICD-10-PCS; principal; 2021-05-10 12:05)
PROC: 02HV33Z Insertion of Infusion Device into Superior Vena Cava, Percutaneous Approach (ICD-10-PCS; 2021-05-11)
DX: K31.1 Adult hypertrophic pyloric stenosis (principal); E43 Unspecified severe protein-calorie malnutrition; I47.1 Supraventricular tachycardia; K22.10 Ulcer of esophagus without bleeding; Z68.1 Body mass index [BMI] 19.9 or less, adult; E86.0 Dehydration; R62.7 Adult failure to thrive; E03.9 Hypothyroidism, unspecified; E11.9 Type 2 diabetes mellitus without complications; E78.5 Hyperlipidemia, unspecified; E83.42 Hypomagnesemia; E87.6 Hypokalemia; Z20.822 Contact with and (suspected) exposure to COVID-19; F03.90 Unspecified dementia, unspecified severity, without behavioral disturbance, psychotic disturbance, mood disturbance, and anxiety; F32.A Depression, unspecified; F41.9 Anxiety disorder, unspecified; I10 Essential (primary) hypertension; I48.0 Paroxysmal atrial fibrillation; K22.2 Esophageal obstruction; I49.3 Ventricular premature depolarization; K21.00 Gastro-esophageal reflux disease with esophagitis, without bleeding; K22.89 Other specified disease of esophagus; K29.50 Unspecified chronic gastritis without bleeding; K31.7 Polyp of stomach and duodenum; K44.9 Diaphragmatic hernia without obstruction or gangrene; M41.9 Scoliosis, unspecified; Z79.01 Long term (current) use of anticoagulants; Z79.82 Long term (current) use of aspirin; Z79.890 Hormone replacement therapy; Z79.899 Other long term (current) drug therapy; Z82.3 Family history of stroke; Z82.49 Family history of ischemic heart disease and other diseases of the circulatory system; Z86.73 Personal history of transient ischemic attack (TIA), and cerebral infarction without residual deficits; Z90.710 Acquired absence of both cervix and uterus; R31.9 Hematuria, unspecified
CPT/HCPCS: 36410; 36415; 36573; 43235; 71045; 71046; 74240; 76937; 80048; 80053; 81001; 81003; 82330; 82550; 83735; 84100; 84132; 84478; 84484; 85025; 85027; 87635; 88305; 88307; 88311; 93005; 93306; 99285

== ENCOUNTER 2024-06-24 18:20 | Observation (INO) | payer MEDICARE, BC, OTHER ==
[2024-06-24 19:13] LABS: Anisocytosis Slight; HCT 24.8 % (34.0-46.0); HGB 7.3 gm/dL (11.4-16.0); Hypochromasia Marked; MCH 32.5 pg (25.0-35.0); MCHC 29.3 g/dL (31.0-37.0); MCV 110.9 fL (80.0-100.0); Macrocytosis Marked; Mean Platelet Volume 9.1; Platelet Count 198 k/uL (150-450); RBC 2.23 m/uL (3.80-5.40); WBC 1.9 k/uL (3.8-10.6)
[2024-06-24 20:00] LABS: ALT 14 U/L (4-34); AST 18 U/L (14-36); African American GFR (CKD) >90 (>60 ml/min/1.73 sqM); Albumin 3.3 g/dL (3.5-5.0); Alkaline Phosphatase 59 U/L (38-126); Anion Gap 6 mmol/L; Blood Urea Nitrogen 18 mg/dL (7-17); Calcium 8.8 mg/dL (8.4-10.2); Carbon Dioxide 23 mmol/L (22-30); Chloride 109 mmol/L (98-107); Glucose 116 mg/dL (74-99); Non-African American GFR(CKD) 85 (>60 ml/min/1.73 sqM); Potassium 3.7 mmol/L (3.5-5.1); Sodium 138 mmol/L (137-145); Total Bilirubin 0.3 mg/dL (0.2-1.3); Total Protein 5.5 g/dL (6.3-8.2)
[2024-06-24 20:06] LABS: Band Neutrophils % 1 %; Eosinophils # (M) 0.08 k/uL (0-0.7); Lymphocytes # (M) 0.91 k/uL (1.0-4.8); Monocytes # (M) 0.27 k/uL (0-1.0); Neutrophils % (M) 33 %; Nucleated Red Blood Cells 0 /100 WBC (0-0); Polychromasia Present; Total Cells Counted 100
--- NOTE | 2024-06-24 22:01 | ED ---
General Adult HPI - General Chief complaint: Recheck/Abnormal Lab/Rx Stated complaint: low hemoglobin Time Seen by Provider: 06/24/24 18:22 Source: patient, EMS Mode of arrival: ambulatory Limitations: no limitations - History of Present Illness Initial comments: 89-year-old female who presents to the emergency department for anemia. Patient is coming from [place]. She had laboratory studies conducted today which demonstrated low hemoglobin. Patient is asymptomatic at this time. Denies any chest pain or shortness of breath. She denies any black or bloody stools. No hematuria or hematemesis. Review of the patient's chart demonstrates history of anemia. Patient is on Xarelto. No other alleviating, precipitating or modifying factors - Related Data Home Medications Medication Instructions Recorded Confirmed Aspirin EC [Ecotrin Low Dose] 81 mg PO DAILY@79912/23/15 06/25/24 rOPINIRole HCL [Requip] 3 mg PO HS@209912/23/15 06/25/24 timoloL maleate [Timolol Maleate] 1 drop BOTH EYES DAILY@79912/23/15 06/25/24 Donepezil HCl [Aricept] 5 mg PO HS@209910/15/17 06/25/24 Ferrous Sulfate [Iron (65 MG 325 mg PO DAILY@79912/25/17 06/25/24 Elemental)] Latanoprost Ophth [Xalatan 0.005%] 1 drop BOTH EYES HS@209912/25/17 06/25/24 Potassium Chloride ER [K-Dur 10] 10 meq PO DAILY@1700 12/25/17 06/25/24 lisinopriL [Prinivil] 5 mg PO DAILY@79912/30/17 06/25/24 Rivaroxaban [Xarelto] 10 mg PO DAILY@79902/14/21 06/25/24 Rosuvastatin Calcium [Crestor] 5 mg PO HS@209902/14/21 06/25/24 Levothyroxine Sodium [Synthroid] 25 mcg PO DAILY@0800 03/08/21 06/25/24 Sennosides [Senna] 8.6 mg PO HS PRN 03/08/21 06/25/24 bisacodyL [Dulcolax] 10 mg RECTAL DAILY PRN 03/08/21 06/25/24 Pantoprazole [Protonix] 40 mg PO DAILY@0800 05/04/21 06/25/24 Acetaminophen Tab [Tylenol] 650 mg PO BID@0800,2000 06/25/24 06/25/24 Acetaminophen [Tylenol] 650 mg PO Q6H PRN 06/25/24 06/25/24 Cholecalciferol [Vitamin D3 (25 25 mcg PO DAILY@0800 06/25/24 06/25/24 Mcg = 1000 Iu)] Ensure Enlive 120 ml PO BID@0800,1200 06/25/24 06/25/24 Loperamide HCl [Loperamide] 2 mg PO QID PRN 06/25/24 06/25/24 Magnesium Hydroxide [Milk of 7,200 mg PO Q48H PRN 06/25/24 06/25/24 Magnesia Concentrate] Metoprolol Succinate (ER) [Toprol 25 mg PO DAILY@0800 06/25/24 06/25/24 XL] Na Phos,M-B/Na Phos,Di-Ba [Fleet 133 ml RECTAL DAILY PRN 06/25/24 06/25/24 Adult] Refresh Celluvisc Ophthalmic Gel 1% 1 drop LEFT EYE TID@0800,1200,1700 06/25/24 06/25/24 Retaine Pm Opthalmic Ointment 1 applic LEFT EYE HS@2100 06/25/24 06/25/24 Vit C/E/Zn/Coppr/Lutein/Zeaxan 1 cap PO BID@0800,1700 06/25/24 06/25/24 [Preservision Areds 2 Softgel] guaiFENesin SYRUP 100MG/5ML 200 mg PO Q4H PRN 06/25/24 06/25/24 [Robitussin] Allergies Allergy/AdvReac Type Severity Reaction Status Date / Time No Known Allergies Allergy Verified 06/27/24 13:08 Review of Systems ROS Statement: Those systems with pertinent positive or pertinent negative responses have been documented in the HPI. ROS Other: All systems not noted in ROS Statement are negative. Past Medical History Past Medical History: Cancer, CVA/TIA, Diabetes Mellitus, Eye Disorder, GERD/Reflux, Hyperlipidemia, Hypertension, Osteoarthritis (OA), Thyroid Disorder Additional Past Medical History / Comment(s): HX: DM, NO RX SINCE WGT LOSS. SCOLIOSIS, BACK PAIN. SKIN CA, MULT. CVA, SL generalized weakness residual, TIA 04/2013 (pt/francisco j think she has a couple). Irregular heart beat OCC, Bradycardia at times, MINOR HEART MURMUR. GLAUCOMA. LT HIP FX 10/2017, HAS IRRITATING HARDWARE NOW. History of Any Multi-Drug Resistant Organisms: None Reported Past Surgical History: Hysterectomy Additional Past Surgical History / Comment(s): Colonoscopies w/ polypectomy- benign. MAIRA CATARACTS. Epidural INJ Lumbar Spine, LAST 10/07/17. 10/22/17 ORIF LT HIP. Past Anesthesia/Blood Transfusion Reactions: No Reported Reaction Past Psychological History: Anxiety, Depression Smoking Status: Never smoker Past Alcohol Use History: None Reported Past Drug Use History: None Reported - Past Family History Son(s) Family Medical History: Deep Vein Thrombosis (DVT) Father Family Medical History: Coronary Artery Disease (CAD), Myocardial Infarction (LA) Additional Family Medical History / Comment(s): Father of LA-pt unsure what age,. Mother Family Medical History: CVA/TIA General Exam Limitations: no limitations General appearance: alert, in no apparent distress, cachectic Head exam: Present: atraumatic, normocephalic, normal inspection Eye exam: Present: normal appearance, PERRL, EOMI. Absent: scleral icterus, conjunctival injection, periorbital swelling ENT exam: Present: normal exam, mucous membranes moist Neck exam: Present: normal inspection. Absent: tenderness, meningismus, lymphadenopathy Respiratory exam: Present: normal lung sounds bilaterally. Absent: respiratory distress, wheezes, rales, rhonchi, stridor Cardiovascular Exam: Present: regular rate, normal rhythm, normal heart sounds. Absent: systolic murmur, diastolic murmur, rubs, gallop, clicks GI/Abdominal exam: Present: soft, normal bowel sounds. Absent: distended, tenderness, guarding, rebound, rigid Extremities exam: Present: normal inspection, full ROM, normal capillary refill. Absent: tenderness, pedal edema, joint swelling, calf tenderness Back exam: Present: normal inspection Neurological exam: Present: alert, oriented X3, CN II-XII intact Psychiatric exam: Present: normal affect, normal mood Skin exam: Present: warm, dry, intact, normal color. Absent: rash Course Vital Signs 06/24/24 06/24/24 06/24/24 18:29 18:38 22:32 Temperature 98.2 F Pulse Rate 60 70 Pulse Rate [ 60 Engineer Fishing Vessel ] Respiratory 18 18 Rate Blood Pressure 139/62 148/86 O2 Sat by Pulse 96 96 Oximetry 06/25/24 04:44 Temperature Pulse Rate 67 Pulse Rate [ Engineer Fishing Vessel ] Respiratory 16 Rate Blood Pressure 136/78 O2 Sat by Pulse 96 Oximetry Medical Decision Making - Medical Decision Making Was pt. sent in by a medical professional or institution (, EILEEN, CRATE OPENER, urgent care, hospital, or assisted...) When possible be specific @ -Patient sent in from [facility] Did you speak to anyone other than the patient for history (EMS, parent, family, police, friend...)? What history was obtained from this source @ -Spoke with EMS for history Did you review nursing and triage notes (agree or disagree)? Why? @ -I reviewed and agree with nursing and triage notes Were old charts reviewed (outside hosp., previous admission, EMS record, old EKG, old radiological studies, urgent care reports/EKG's, assisted records)? Report findings @ -I reviewed her hemoglobin results from earlier today which were 6.9 Differential Diagnosis (chest pain, altered mental status, abdominal pain women, abdominal pain men, vaginal bleeding, weakness, fever, dyspnea, syncope, headache, dizziness, GI bleed, back pain, seizure, CVA, palpatations, mental health, musculoskeletal)? @ -Iron deficiency anemia, blood loss anemia, GI bleed, B12 and folate deficiency EKG interpreted by me (3pts min.). @ -Yes which demonstrates sinus rhythm with occasional PVCs. Rate of 62. [place] interval 191. QRS 146. QTc of 462. No acute ST segment elevations or depressions X-rays interpreted by me (1pt min.). @ -None done CT interpreted by me (1pt min.). @ -None done U/S interpreted by me (1pt. min.). @ -None done What testing was considered but not performed or refused? (CT, X-rays, U/S, labs)? Why? @ -None What meds were considered but not given or refused? Why? @ -None Did you discuss the management of the patient with other professionals (professionals i.e. , PA, CRATE OPENER, lab, RT, psych nurse, social sciences chair, inflatable buildings laminator, teacher, interface control officer, senior case manager)? Give summary @ -Spoke with Dr. Leiva who requested that I observe the patient overnight Was smoking cessation discussed for >3mins.? @ -No Was critical care preformed (if so, how long)? @ -No Were there social determinants of health that impacted care today? How? (Homelessness, low income, unemployed, alcoholism, drug addiction, transp ortation, low edu. Level, literacy, decrease access to med. care, halfway, rehab)? @ -No Was there de-escalation of care discussed even if they declined (Discuss DNR or withdrawal of care, Hospice)? DNR status @ -No What co-morbidities impacted this encounter? (DM, HTN, Smoking, COPD, CAD, Cancer, CVA, ARF, Chemo, Hep., AIDS, mental health diagnosis, sleep apnea, morbid obesity)? @ -Diabetes, hypertension, hyperlipidemia Was patient admitted / discharged? Hospital course, mention meds given and route, prescriptions, significant lab abnormalities, going to OR and other pertinent info. @ -Upon arrival patient seen and evaluated in room 19. Thorough history and physical exam was performed. I did repeat the patient's blood work. Patient does have a hemoglobin of 7.3. No signs of active bleeding. Patient is asymptomatic. I did call and speak with Dr. Leiva. He recommends that the pat ient be admitted overnight for repeat hemoglobin the morning. Patient was agreeable to this. Patient taken for in stable condition Undiagnosed new problem with uncertain prognosis? @ -No Drug Therapy requiring intensive monitoring for toxicity (Heparin, Nitro, Insulin, Cardizem)? @ -No Were any procedures done? @ -No Diagnosis/symptom? @ -Acute on chronic anemia, Xarelto coagulopathy Acute, or Chronic, or Acute on Chronic? @ -Acute on chronic Uncomplicated (without systemic symptoms) or Complicated (systemic symptoms)? @ -Complicated Side effects of treatment? @ -No Exacerbation, Progression, or Severe Exacerbation? @ -No Poses a threat to life or bodily function? How? (Chest pain, USA, LA, pneumonia, PE, COPD, DKA, ARF, appy, cholecystitis, CVA, Diverticulitis, Homicidal, Suicid al, threat to staff... and all critical care pts) @ -No - Lab Data Result diagrams: 06/25/24 07:16 06/25/24 07:16 Lab Results 06/24/24 06/24/24 06/24/24 Range/Units 19:05 19:05 19:05 WBC 1.9 L (3.8-10.6) k/uL RBC 2.23 L (3.80-5.40) m/uL Hgb 7.3 L (11.4-16.0) gm/dL Hct 24.8 L (34.0-46.0) % MCV 110.9 H (80.0-100.0) fL MCH 32.5 (25.0-35.0) pg MCHC 29.3 L (31.0-37.0) g/dL RDW 17.0 H (11.5-15.5) % Plt Count 198 (150-450) k/uL MPV 9.1 Neutrophils % (Manual) 33 % Band Neuts % (Manual) 1 % Lymphocytes % (Manual) 48 % Monocytes % (Manual) 14 % Eosinophils % (Manual) 4 % Neutrophils # (Manual) 0.60 L (1.3-7.7) k/uL Lymphocytes # (Manual) 0.91 L (1.0-4.8) k/uL Monocytes # (Manual) 0.27 (0-1.0) k/uL Eosinophils # (Manual) 0.08 (0-0.7) k/uL Nucleated RBCs 0 (0-0) /100 WBC Manual Slide Review Performed Polychromasia Present Hypochromasia Marked Anisocytosis Slight Macrocytosis Marked A Sodium 138 (137-145) mmol/L Potassium 3.7 (3.5-5.1) mmol/L Chloride 109 H (98-107) mmol/L Carbon Dioxide 23 (22-30) mmol/L Anion Gap 6 mmol/L BUN 18 H (7-17) mg/dL Creatinine 0.52 (0.52-1.04) mg/dL Est GFR (CKD-EPI)AfAm >90 (>60 ml/min/1.73 sqM) Est GFR (CKD-EPI)NonAf 85 (>60 ml/min/1.73 sqM) Glucose 116 H (74-99) mg/dL Plasma Lactic Acid Ankur (0.7-2.0) mmol/L Calcium 8.8 (8.4-10.2) mg/dL Total Bilirubin 0.3 (0.2-1.3) mg/dL AST 18 (14-36) U/L ALT 14 (4-34) U/L Alkaline Phosphatase 59 (38-126) U/L Total Protein 5.5 L (6.3-8.2) g/dL Albumin 3.3 L (3.5-5.0) g/dL Blood Type A Positive Blood Type Recheck A Pos Bld Type Recheck Status No Antibody Screen NEGATIVE Spec Expiration Date 06/27/2024 - 230406/24/24 Range/Units 19:38 WBC (3.8-10.6) k/uL RBC (3.80-5.40) m/uL Hgb (11.4-16.0) gm/dL Hct (34.0-46.0) % MCV (80.0-100.0) fL MCH (25.0-35.0) pg MCHC (31.0-37.0) g/dL RDW (11.5-15.5) % Plt Count (150-450) k/uL MPV Neutrophils % (Manual) % Band Neuts % (Manual) % Lymphocytes % (Manual) % Monocytes % (Manual) % Eosinophils % (Manual) % Neutrophils # (Manual) (1.3-7.7) k/uL Lymphocytes # (Manual) (1.0-4.8) k/uL Monocytes # (Manual) (0-1.0) k/uL Eosinophils # (Manual) (0-0.7) k/uL Nucleated RBCs (0-0) /100 WBC Manual Slide Review Polychromasia Hypochromasia Anisocytosis Macrocytosis Sodium (137-145) mmol/L Potassium (3.5-5.1) mmol/L Chloride (98-107) mmol/L Carbon Dioxide (22-30) mmol/L Anion Gap mmol/L BUN (7-17) mg/dL Creatinine (0.52-1.04) mg/dL Est GFR (CKD-EPI)AfAm (>60 ml/min/1.73 sqM) Est GFR (CKD-EPI)NonAf (>60 ml/min/1.73 sqM) Glucose (74-99) mg/dL Plasma Lactic Acid Ankur 1.8 (0.7-2.0) mmol/L Calcium (8.4-10.2) mg/dL Total Bilirubin (0.2-1.3) mg/dL AST (14-36) U/L ALT (4-34) U/L Alkaline Phosphatase (38-126) U/L Total Protein (6.3-8.2) g/dL Albumin (3.5-5.0) g/dL Blood Type Blood Type Recheck Bld Type Recheck Status Antibody Screen Spec Expiration Date Disposition Clinical Impression: Anemia Disposition: ADMITTED IP TO THIS [facility] Condition: Stable Is patient prescribed a controlled substance at d/c from ED?: No Time of Disposition: 22:00 Decision to Admit Reason: Admit from EC Decision Date: 06/24/24 Decision Time: 22:01
[2024-06-24] MEDS ORDERED: NALOXONE 0.4 MG/ML 1 ML VIAL IV PRN (22:08)
[2024-06-24] MEDS: LATANOPROST 0.005% OPHTH DROPS 2.5 ML BTL BOTH EYES SCH (22:41)
[2024-06-24] MEDS: DONEPEZIL 5 MG TAB PO SCH (22:41)
[2024-06-24] MEDS: ATORVASTATIN 10 MG TAB PO SCH (22:41)
[2024-06-25 02:25] LABS: Prothrombin Time 10.6 sec (10.0-12.5)
[2024-06-25 08:04] LABS: African American GFR (CKD) >90 (>60 ml/min/1.73 sqM); Anion Gap 8 mmol/L; Blood Urea Nitrogen 14 mg/dL (7-17); Calcium 9.2 mg/dL (8.4-10.2); Carbon Dioxide 23 mmol/L (22-30); Chloride 108 mmol/L (98-107); Glucose 81 mg/dL (74-99); Non-African American GFR(CKD) >90 (>60 ml/min/1.73 sqM); Potassium 3.8 mmol/L (3.5-5.1); Sodium 139 mmol/L (137-145)
[2024-06-25 08:16] LABS: Anisocytosis Slight; HCT 25.7 % (34.0-46.0); HGB 7.4 gm/dL (11.4-16.0); Hypochromasia Marked; MCHC 28.9 g/dL (31.0-37.0); MCV 110.9 fL (80.0-100.0); Macrocytosis Marked; Mean Platelet Volume 7.7; Platelet Count 209 k/uL (150-450); RBC 2.31 m/uL (3.80-5.40); RDW 17.1 % (11.5-15.5); WBC 2.2 k/uL (3.8-10.6)
[2024-06-25] MEDS ORDERED: guaiFENesin SYRUP 100MG/5ML 200 MG/10 ML CUP PO PRN (10:18)
[2024-06-25] MEDS ORDERED: LOPERAMIDE 2 MG CAP PO PRN (10:18)
[2024-06-25] MEDS ORDERED: NA PHOS,M-B/NA PHOS,DI-BA 133 ML ENEMA RECTAL PRN (10:18)
[2024-06-25] MEDS ORDERED: MAGNESIUM HYDROXIDE 2,400 MG/30 ML CUP PO PRN (10:18)
[2024-06-25] MEDS ORDERED: bisacodyL 10 MG SUPP RECTAL PRN (10:18)
[2024-06-25] MEDS ORDERED: SENNOSIDES 8.6 MG TAB PO PRN (10:18)
[2024-06-25] MEDS ORDERED: NON FORMULARY DRUG (Ensure Enlive 120 ML) PO SCH (12:00)
[2024-06-25] MEDS: TIMOLOL 0.25% OPHTH DROPS 5 ML BTL BOTH EYES SCH (12:30)
[2024-06-25] MEDS: ARTIFICIAL TEARS-HYPROMELLOSE DROPS 15 ML BTL LEFT EYE SCH (12:30)
[2024-06-25 15:22] VITALS: BMI 18.8
[2024-06-25 15:39] LABS: % Iron Saturation 12.55 (12.00-45.00)
[2024-06-25] MEDS: RIVAROXABAN 10 MG TAB PO SCH (16:03)
--- NOTE | 2024-06-25 16:12 | P.CONS ---
History of Present Illness - Reason for Consult Consult date: 06/25/24 Anemia Requesting physician: Melissa Leiva - Chief Complaint Abnormal outpatient labs - History of Present Illness This a pleasant 89-year-old female with a history of pyloric stenosis status post distal antrecctomy with loop gastrojejunostomy in 2021, atrial fibrillation on Xarelto, skin cancer, chronic anemia, diabetes mellitus, hyperlipidemia, hypertension, osteoarthritis and thyroid disorder. Patient resides at [facility] and had blood work done and was told her hemoglobin was 6.9 and she came to the emergency department for further evaluation. Hemoglobin here was 7.3 on admission with a repeat today of 7.4. Anticoagulation is currently on hold. Patient denies any blood or black stool. Denies any abdominal pain, nausea or vomiting, no hematemesis. She does take iron daily. Remote colonoscopy which she believes was normal. She denies any difficulty with swallowing. States she appetite has been good. No weight loss. Review of Systems REVIEW OF SYSTEMS: CARDIOPULMONARY: No chest pain or shortness of breath. Gastrointestinal: No abdominal pain. No nausea or vomiting. No hematemesis, coffee-ground emesis. No rectal bleeding, or melena. GENITOURINARY: No dysuria or hematuria. MUSCULOSKELETAL: Reports normal range of motion., Joint pain. SKIN: No rashes. No jaundice. ENDOCRINE: No chills, fevers. No excessive weight gain or loss. No polydipsia or polyuria. PSYCHIATRIC: Unremarkable. NEUROLOGY: No change in mental status. Denies dizziness, headache. ENT: Vision unremarkable. CONSTITUTIONAL: No recent weight loss. No fever, chills, night sweats. Past Medical History Past Medical History: Cancer, CVA/TIA, Diabetes Mellitus, Eye Disorder, GERD/Reflux, Hyperlipidemia, Hypertension, Osteoarthritis (OA), Thyroid Disorder Additional Past Medical History / Comment(s): HX: DM, NO RX SINCE WGT LOSS. SCOLIOSIS, BACK PAIN. SKIN CA, MULT. CVA, SL generalized weakness residual, TIA 04/2013 (pt/francisco j think she has a couple). Irregular heart beat OCC, Bradycardia at times, MINOR HEART MURMUR. GLAUCOMA. LT HIP FX 10/2017, HAS IRRITATING HARDWARE NOW. History of Any Multi-Drug Resistant Organisms: None Reported Past Surgical History: Hysterectomy Additional Past Surgical History / Comment(s): Colonoscopies w/ polypectomy- benign. MAIRA CATARACTS. Epidural INJ Lumbar Spine, LAST 10/07/17. 10/22/17 ORIF LT HIP. Past Anesthesia/Blood Transfusion Reactions: No Reported Reaction Past Psychological History: Anxiety, Depression Smoking Status: Never smoker Past Alcohol Use History: None Reported Past Drug Use History: None Reported - Past Family History Son(s) Family Medical History: Deep Vein Thrombosis (DVT) Father Family Medical History: Coronary Artery Disease (CAD), Myocardial Infarction (LA) Additional Family Medical History / Comment(s): Father of LA-pt unsure what age,. Mother Family Medical History: CVA/TIA Medications and Allergies Home Medications Medication Instructions Recorded Confirmed Type Aspirin EC [Ecotrin Low Dose] 81 mg PO DAILY@79912/23/15 06/25/24 History rOPINIRole HCL [Requip] 3 mg PO HS@209912/23/15 06/25/24 History timoloL maleate [Timolol Maleate] 1 drop BOTH EYES DAILY@79912/23/15 06/25/24 History Donepezil HCl [Aricept] 5 mg PO HS@209910/15/17 06/25/24 History Ferrous Sulfate [Iron (65 MG 325 mg PO DAILY@79912/25/17 06/25/24 History Elemental)] Latanoprost Ophth [Xalatan 0.005%] 1 drop BOTH EYES HS@209912/25/17 06/25/24 History Potassium Chloride ER [K-Dur 10] 10 meq PO DAILY@1700 12/25/17 06/25/24 History lisinopriL [Prinivil] 5 mg PO DAILY@79912/30/17 06/25/24 History Rivaroxaban [Xarelto] 10 mg PO DAILY@79902/14/21 06/25/24 History Rosuvastatin Calcium [Crestor] 5 mg PO HS@209902/14/21 06/25/24 History Levothyroxine Sodium [Synthroid] 25 mcg PO DAILY@0800 03/08/21 06/25/24 History Sennosides [Senna] 8.6 mg PO HS PRN 03/08/21 06/25/24 History bisacodyL [Dulcolax] 10 mg RECTAL DAILY PRN 03/08/21 06/25/24 History Pantoprazole [Protonix] 40 mg PO DAILY@0800 05/04/21 06/25/24 History Acetaminophen Tab [Tylenol] 650 mg PO BID@0800,2000 06/25/24 06/25/24 History Acetaminophen [Tylenol] 650 mg PO Q6H PRN 06/25/24 06/25/24 History Cholecalciferol [Vitamin D3 (25 25 mcg PO DAILY@0800 06/25/24 06/25/24 History Mcg = 1000 Iu)] Ensure Enlive 120 ml PO BID@0800,1200 06/25/24 06/25/24 History Loperamide HCl [Loperamide] 2 mg PO QID PRN 06/25/24 06/25/24 History Magnesium Hydroxide [Milk of 7,200 mg PO Q48H PRN 06/25/24 06/25/24 History Magnesia Concentrate] Metoprolol Succinate (ER) [Toprol 25 mg PO DAILY@0800 06/25/24 06/25/24 History XL] Na Phos,M-B/Na Phos,Di-Ba [Fleet 133 ml RECTAL DAILY PRN 06/25/24 06/25/24 History Adult] Refresh Celluvisc Ophthalmic Gel 1% 1 drop LEFT EYE TID@0800,1200,1700 06/25/24 06/25/24 History Retaine Pm Opthalmic Ointment 1 applic LEFT EYE HS@2100 06/25/24 06/25/24 H istory Vit C/E/Zn/Coppr/Lutein/Zeaxan 1 cap PO BID@0800,1700 06/25/24 06/25/24 History [Preservision Areds 2 Softgel] guaiFENesin SYRUP 100MG/5ML 200 mg PO Q4H PRN 06/25/24 06/25/24 History [Robitussin] Allergies Allergy/AdvReac Type Severity Reaction Status Date / Time No Known Allergies Allergy Verified 06/25/24 07:53 Physical Exam Vitals: Vital Signs Temp Pulse Pulse Pulse Resp BP BP 06/25/24 12:04 98.0 F 71 18 145/72 06/25/24 07:48 97.8 F 74 18 177/72 06/25/24 04:44 67 16 136/78 06/24/24 22:32 70 18 148/86 06/24/24 18:38 60 06/24/24 18:29 98.2 F 60 18 139/62 Pulse Ox 06/25/24 12:04 100 06/25/24 07:48 95 06/25/24 04:44 96 06/24/24 22:32 96 06/24/24 18:38 06/24/24 18:29 96 Intake and Output 06/24/24 06/25/24 06/25/24 22:59 06:59 14:59 Other: Weight 49.895 kg General appearance: The patient is alert, oriented, appears in no acute distress. HET: Head is normocephalic and atraumatic. Conjunctiva pink. Sclera anicteric. Neck: Supple without lymphadenopathy. Trachea midline. Heart: Regular. Lungs: Equal expansion, normal respiratory effort. Abdomen: Soft, nontender, nondistended. Skin: No rashes. No jaundice. Extremities: Normal skin color and turgor. No pedal edema. Neurological: No focal deficits. Alert and oriented x3. Results CBC & Chem 7: 06/25/24 07:16 06/25/24 07:16 Labs: Abnormal Lab Results - Last 24 Hours (Table) 06/24/24 06/24/24 06/25/24 Range/Units 19:05 19:05 07:16 WBC 1.9 L 2.2 L (3.8-10.6) k/uL RBC 2.23 L 2.31 L (3.80-5.40) m/uL Hgb 7.3 L 7.4 L (11.4-16.0) gm/dL Hct 24.8 L 25.7 L (34.0-46.0) % MCV 110.9 H 110.9 H (80.0-100.0) fL MCHC 29.3 L 28.9 L (31.0-37.0) g/dL RDW 17.0 H 17.1 H (11.5-15.5) % Neutrophils # (Manual) 0.60 L (1.3-7.7) k/uL Lymphocytes # (Manual) 0.91 L (1.0-4.8) k/uL Macrocytosis Marked A Marked A Chloride 109 H (98-107) mmol/L BUN 18 H (7-17) mg/dL Creatinine (0.52-1.04) mg/dL Glucose 116 H (74-99) mg/dL Total Protein 5.5 L (6.3-8.2) g/dL Albumin 3.3 L (3.5-5.0) g/dL 06/25/24 Range/Units 07:16 WBC (3.8-10.6) k/uL RBC (3.80-5.40) m/uL Hgb (11.4-16.0) gm/dL Hct (34.0-46.0) % MCV (80.0-100.0) fL MCHC (31.0-37.0) g/dL RDW (11.5-15.5) % Neutrophils # (Manual) (1.3-7.7) k/uL Lymphocytes # (Manual) (1.0-4.8) k/uL Macrocytosis Chloride 108 H (98-107) mmol/L BUN (7-17) mg/dL Creatinine 0.41 L (0.52-1.04) mg/dL Glucose (74-99) mg/dL Total Protein (6.3-8.2) g/dL Albumin (3.5-5.0) g/dL Assessment and Plan (1) Anemia Narrative/Plan: 89-year-old female with chronic anemia was sent into the emergency department for outpatient hemoglobin is 6.9 without any evidence of a GI bleed. Hemoglobin on admission 7.3 patient did not require any blood transfusion. This is a patient who does have a history of pyloric stenosis who had undergone surgery in the past. But she also has history of atrial fibrillation on Xarelto. Again no reported evidence of GI bleed. Labs are more consistent with a macrocytic anemia. Patient also has bicytopenia. Consider possible hematology consultation. Continue oral iron. Iron studies ordered. No plans at this time for endoscopic evaluation but will continue to monitor closely. Current Visit: Yes Status: Acute Code(s): D64.9 - ANEMIA, UNSPECIFIED SNOMED Code(s): 798530558 (2) History of pyloric stenosis Current Visit: Yes Status: Acute Code(s): Z87.19 - PERSONAL HISTORY OF OTHER DISEASES OF THE DIGESTIVE SYSTEM SNOMED Code(s): 276106169 (3) History of atrial fibrillation Current Visit: Yes Status: Acute Code(s): Z86.79 - PERSONAL HISTORY OF OTHER DISEASES OF THE CIRCULATORY SYSTEM SNOMED Code(s): 101839878 Plan: 1. Continue symptomatic and supportive care 2. Diet as tolerated 3. Hold anticoagulation for now 4. Repeat daily CBC, transfuse for hemoglobin less than 7 5. Iron studies and ferritin ordered 6. No signs of GI bleed. No plans at this time for any endoscopic evaluation 7. Protonix 40 mg daily for GI prophylaxis 8. Consider possible hematology consultation, bicytopenia Thank you for this consultation, we will continue to follow. Dr. Luis Torres I agree with the dictator's note, documented as a scribe by Kavita Cuadra.
[2024-06-25] MEDS: POTASSIUM CHLORIDE ER 10 MEQ TAB.ER.PRT PO SCH (16:34)
[2024-06-25] MEDS: VIT A,C & E-LUTEIN-MINERALS 1 EACH TAB PO SCH (16:34)
[2024-06-25] MEDS: ACETAMINOPHEN TAB 325 MG TAB PO SCH (18:03)
[2024-06-25] MEDS: ARTIFICIAL TEARS OINTMENT 3.5 GM TUBE LEFT EYE SCH (21:13)
[2024-06-26] MEDS: ACETAMINOPHEN TAB 325 MG TAB PO PRN (04:02)
[2024-06-26] MEDS: FERROUS SULFATE 325 MG TAB PO SCH (08:03)
[2024-06-26] MEDS: METOPROLOL SUCCINATE (ER) 25 MG TAB.ER.24H PO SCH (08:03)
[2024-06-26] MEDS: ASPIRIN 81 MG PO SCH (08:03)
[2024-06-26] MEDS: LEVOTHYROXINE 25 MCG TAB PO SCH (08:03)
[2024-06-26] MEDS: PANTOPRAZOLE 40 MG TABLET PO SCH (08:03)
[2024-06-26] MEDS: CHOLECALCIFEROL 25 MCG (1000 IU) TABLET PO SCH (08:03)
[2024-06-26] MEDS: lisinopriL 5 MG TAB PO SCH (08:03)
--- NOTE | 2024-06-26 10:07 | P.PN ---
Subjective Progress Note Date: 06/26/24 Principal diagnosis: Anemia This a pleasant 89-year-old female with a history of pyloric stenosis status post distal antrecctomy with loop gastrojejunostomy in 2021, atrial fibrillation on Xarelto, skin cancer, chronic anemia, diabetes mellitus, hyperlipidemia, hypertension, osteoarthritis and thyroid disorder. Patient resides at [facility] and had blood work done and was told her hemoglobin was 6.9 and she came to the emergency department for further evaluation. Hemoglobin here was 7.3 on admission with a repeat today of 7.4. Anticoagulation is currently on hold. Patient denies any blood or black stool. Denies any abdominal pain, nausea or vomiting, no hematemesis. She does take iron daily. Remote colonoscopy which she believes was normal. She denies any difficulty with swallowing. States she appetite has been good. No weight loss. 06/26/2024 Patient seen and examined today as a follow-up. She continues to deny any abdominal pain, nausea or vomiting. No difficulty swallowing. No blood in her stool or black stool. No labs from today. Iron studies show iron level 29 TIBC 231 saturation 12.5 ferritin is still currently pending however if acute blood loss iron deficiency anemia TIBC would be low. Will await ferritin level. Vitamin B12 392 folate 24.6 ferritin 300 Objective - Vital Signs Vital signs: Vital Signs Temp 98.3 F 06/26/24 01:24 Pulse 71 06/26/24 01:24 Resp 16 06/26/24 01:24 BP 146/72 06/26/24 01:24 Pulse Ox 99 06/26/24 01:24 FiO2 Intake & Output 06/25/24 06/25/24 06/26/24 06:59 18:59 06:59 Intake Total 240 Output Total 100 Balance 140 Weight 49.895 kg Intake: Oral 240 Output: Urine 100 Other: Voiding Method Diaper Diaper Incontinent Incontinent # Voids 1 2 - Exam General appearance: The patient is alert, oriented, appears in no acute distress. HET: Head is normocephalic and atraumatic. Conjunctiva pink. Sclera anicteric. Neck: Supple without lymphadenopathy. Abdomen: Soft, nontender, nondistended. Extremities: Normal skin color and turgor. No pedal edema Skin: No rashes, no jaundice Neurological: No focal deficits. Alert and oriented. - Labs CBC & Chem 7: 06/25/24 07:16 06/25/24 07:16 Labs: Abnormal Lab Results - Last 24 Hours (Table) 06/25/24 06/25/24 06/25/24 Range/Units 07:16 07:16 07:16 WBC 2.2 L (3.8-10.6) k/uL RBC 2.31 L (3.80-5.40) m/uL Hgb 7.4 L (11.4-16.0) gm/dL Hct 25.7 L (34.0-46.0) % MCV 110.9 H (80.0-100.0) fL MCHC 28.9 L (31.0-37.0) g/dL RDW 17.1 H (11.5-15.5) % Macrocytosis Marked A Chloride 108 H (98-107) mmol/L Creatinine 0.41 L (0.52-1.04) mg/dL Iron 29 L (50-170) UG/DL Transferrin 165.0 L (204.0-354.0) mg/dL Assessment and Plan (1) Anemia Narrative/Plan: 89-year-old female with chronic anemia was sent into the emergency department for outpatient hemoglobin is 6.9 without any evidence of a GI bleed. Hemoglobin on admission 7.3 patient did not require any blood transfusion. This is a patient who does have a history of pyloric stenosis who had undergone surgery in the past. But she also has history of atrial fibrillation on Xarelto. Again no reported evidence of GI bleed. Labs are more consistent with a macrocytic anemia. Patient also has bicytopenia. Consider possible hematology consultation. Continue oral iron. Iron studies reviewed, T IBC normal, f erritin elevated at 300. Not consistent with iron deficiency anemia, no signs of GI bleed. No plans at this time for endoscopic evaluation but will continue to monitor closely. Again consider hematology workup. Current Visit: Yes Status: Acute Code(s): D64.9 - ANEMIA, UNSPECIFIED SNOMED Code(s): 330790269 (2) History of pyloric stenosis Current Visit: Yes Status: Acute Code(s): Z87.19 - PERSONAL HISTORY OF OTHER DISEASES OF THE DIGESTIVE SYSTEM SNOMED Code(s): 092590280 (3) History of atrial fibrillation Current Visit: Yes Status: Acute Code(s): Z86.79 - PERSONAL HISTORY OF OTHER DISEASES OF THE CIRCULATORY SYSTEM SNOMED Code(s): 665575349 Plan: 1. Continue symptomatic and supportive care 2. Diet as tolerated 3. Resume anticoagulation per PCP discretion 4. Repeat daily CBC, transfuse for hemoglobin less than 7 5. Iron studies and ferritin ordered and reviewed 6. No signs of GI bleed. No plans at this time for any endoscopic evaluation 7. Protonix 40 mg daily for GI prophylaxis 8. Consider possible hematology consultation, bicytopenia Thank you for this consultation, we will sign off at this time. Dr. Luis Torres I agree with the dictator's note, documented as a scribe by Kavita Cuadra.
[2024-06-26 13:53] VITALS: BP 138/79; PULSE 57; RESP 16; TEMP 98.1
--- NOTE | 2024-06-26 14:39 | P.DS ---
Providers Date of admission: 06/24/24 22:09 Expected date of discharge: 06/26/24 Attending physician: Melissa Leiva Consults: 06/25/24 10:24 Consult Physician Routine Consulting Provider: Gerri Torres Consult Reason/Comments: anemia Do you want consulting provider notified?: Yes Primary care physician: Melissa Leiva [place] [facility] Course: Diagnosis on discharge: Hospital course: Patient Condition at Discharge: Stable Plan - Discharge Summary Discharge Rx Participant: No New Discharge Prescriptions: Continue Aspirin EC [Ecotrin Low Dose] 81 mg PO DAILY@0800 timoloL maleate [Timolol Maleate] 1 drop BOTH EYES DAILY@0800 rOPINIRole HCL [Requip] 3 mg PO HS@2100 Donepezil HCl [Aricept] 5 mg PO HS@2100 Ferrous Sulfate [Iron (65 MG Elemental)] 325 mg PO DAILY@0800 Latanoprost Ophth [Xalatan 0.005%] 1 drop BOTH EYES HS@2100 Potassium Chloride ER [K-Dur 10] 10 meq PO DAILY@1700 lisinopriL [Prinivil] 5 mg PO DAILY@0800 Rosuvastatin Calcium [Crestor] 5 mg PO HS@2100 Sennosides [Senna] 8.6 mg PO HS PRN PRN Reason: Constipation Pantoprazole [Protonix] 40 mg PO DAILY@0800 Loperamide HCl [Loperamide] 2 mg PO QID PRN PRN Reason: Loose Stool Acetaminophen [Tylenol] 650 mg PO Q6H PRN PRN Reason: Fever And/ Or Pain Acetaminophen Tab [Tylenol] 650 mg PO BID@0800,2000 Cholecalciferol [Vitamin D3 (25 Mcg = 1000 Iu)] 25 mcg PO DAILY@0800 Retaine Pm Opthalmic Ointment 1 applic LEFT EYE HS@2100 Metoprolol Succinate (ER) [Toprol XL] 25 mg PO DAILY@0800 Rivaroxaban [Xarelto] 10 mg PO DAILY@0800 bisacodyL [Dulcolax] 10 mg RECTAL DAILY PRN PRN Reason: Constipation Levothyroxine Sodium [Synthroid] 25 mcg PO DAILY@0800 guaiFENesin SYRUP 100MG/5ML [Robitussin] 200 mg PO Q4H PRN PRN Reason: Cough Na Phos,M-B/Na Phos,Di-Ba [Fleet Adult] 133 ml RECTAL DAILY PRN PRN Reason: Constipation Refresh Celluvisc Ophthalmic Gel 1% 1 drop LEFT EYE TID@0800,1200,1700 Vit C/E/Zn/Coppr/Lutein/Zeaxan [Preservision Areds 2 Softgel] 1 cap PO BID@0 800,1700 Ensure Enlive 120 ml PO BID@0800,1200 Magnesium Hydroxide [Milk of Magnesia Concentrate] 7,200 mg PO Q48H PRN PRN Reason: Constipation Discharge Medication List Aspirin EC [Ecotrin Low Dose] 81 mg PO DAILY@79912/23/15 [History] rOPINIRole HCL [Requip] 3 mg PO HS@209912/23/15 [History] timoloL maleate [Timolol Maleate] 1 drop BOTH EYES DAILY@79912/23/15 [History] Donepezil HCl [Aricept] 5 mg PO HS@209910/15/17 [History] Ferrous Sulfate [Iron (65 MG Elemental)] 325 mg PO DAILY@79912/25/17 [History] Latanoprost Ophth [Xalatan 0.005%] 1 drop BOTH EYES HS@209912/25/17 [History] Potassium Chloride ER [K-Dur 10] 10 meq PO DAILY@169912/25/17 [History] lisinopriL [Prinivil] 5 mg PO DAILY@79912/30/17 [History] Rivaroxaban [Xarelto] 10 mg PO DAILY@79902/14/21 [History] Rosuvastatin Calcium [Crestor] 5 mg PO HS@209902/14/21 [History] Levothyroxine Sodium [Synthroid] 25 mcg PO DAILY@79903/08/21 [History] Sennosides [Senna] 8.6 mg PO HS PRN 03/08/21 [History] bisacodyL [Dulcolax] 10 mg RECTAL DAILY PRN 03/08/21 [History] Pantoprazole [Protonix] 40 mg PO DAILY@79905/04/21 [History] Acetaminophen Tab [Tylenol] 650 mg PO BID@0800,199906/25/24 [History] Acetaminophen [Tylenol] 650 mg PO Q6H PRN 06/25/24 [History] Cholecalciferol [Vitamin D3 (25 Mcg = 1000 Iu)] 25 mcg PO DAILY@0800 06/25/24 [History] Ensure Enlive 120 ml PO BID@0800,1200 06/25/24 [History] Loperamide HCl [Loperamide] 2 mg PO QID PRN 06/25/24 [History] Magnesium Hydroxide [Milk of Magnesia Concentrate] 7,200 mg PO Q48H PRN 06/25/24 [History] Metoprolol Succinate (ER) [Toprol XL] 25 mg PO DAILY@0800 06/25/24 [History] Na Phos,M-B/Na Phos,Di-Ba [Fleet Adult] 133 ml RECTAL DAILY PRN 06/25/24 [History] Refresh Celluvisc Ophthalmic Gel 1% 1 drop LEFT EYE TID@0800,1200,1700 06/25/24 [History] Retaine Pm Opthalmic Ointment 1 applic LEFT EYE HS@2100 06/25/24 [History] Vit C/E/Zn/Coppr/Lutein/Zeaxan [Preservision Areds 2 Softgel] 1 cap PO BID@0800,1700 06/25/24 [History] guaiFENesin SYRUP 100MG/5ML [Robitussin] 200 mg PO Q4H PRN 06/25/24 [History] Follow up Appointment(s)/Referral(s): Melissa Leiva MD [Primary Care Provider] - 1-2 days
--- NOTE | 2024-06-26 14:40 | P.HPIM ---
History of Present Illness H&P Date: 06/25/24 Prerna Hyde, is an 89-year-old female who presented to [facility] emergency room with a chief complaint of generalized weakness, patient had a CBC at the intermediate that revealed a hemoglobin of 6.9 She was evaluated in the emergency room vital examination on presentation re vealed a temperature of 98.2 pulse 60 respiration 18 blood pressure 139/62 pulse ox 96% on room air Laboratory data revealed a white blood count of 12.9 hemoglobin 7.3 platelet count 198 BUN 18 creatinine 0.52 Testing in the emergency room revealed EKG revealed sinus rhythm with occasional supraventricular premature complexes Patient was admitted to medical floor for further evaluation and treatment Past Medical History Past Medical History: Cancer, CVA/TIA, Diabetes Mellitus, Eye Disorder, GERD/Reflux, Hyperlipidemia, Hypertension, Osteoarthritis (OA), Thyroid Disorder Additional Past Medical History / Comment(s): HX: DM, NO RX SINCE WGT LOSS. SCOLIOSIS, BACK PAIN. SKIN CA, MULT. 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 Irregular heart beat OCC, Bradycardia at times, MINOR HEART MURMUR. GLAUCOMA. LT HIP FX 10/2017, HAS IRRITATING HARDWARE NOW. History of Any Multi-Drug Resistant Organisms: None Reported Past Surgical History: Hysterectomy Additional Past Surgical History / Comment(s): Colonoscopies w/ polypectomy- benign. MAIRA CATARACTS. Epidural INJ Lumbar Spine, LAST 10/07/17. 10/22/17 ORIF LT HIP. Past Anesthesia/Blood Transfusion Reactions: No Reported Reaction Past Psychological History: Anxiety, Depression Smoking Status: Never smoker Past Alcohol Use History: None Reported Past Drug Use History: None Reported - Past Family History Son(s) Family Medical History: Deep Vein Thrombosis (DVT) Father Family Medical History: Coronary Artery Disease (CAD), Myocardial Infarction (ME) Additional Family Medical History / Comment(s): Father of ME-pt unsure what age,. Mother Family Medical History: CVA/TIA Medications and Allergies Home Medications Medication Instructions Recorded Confirmed Type Aspirin EC [Ecotrin Low Dose] 81 mg PO DAILY@0800 12/23/15 06/25/24 History rOPINIRole HCL [Requip] 3 mg PO HS@2100 12/23/15 06/25/24 History timoloL maleate [Timolol Maleate] 1 drop BOTH EYES DAILY@0812/23/15 06/25/24 History Donepezil HCl [Aricept] 5 mg PO HS@209910/15/17 06/25/24 History Ferrous Sulfate [Iron (65 MG 325 mg PO DAILY@0812/25/17 06/25/24 History Elemental)] Latanoprost Ophth [Xalatan 0.005%] 1 drop BOTH EYES HS@209912/25/17 06/25/24 History Potassium Chloride ER [K-Dur 10] 10 meq PO DAILY@17012/25/17 06/25/24 History lisinopriL [Prinivil] 5 mg PO DAILY@0812/30/17 06/25/24 History Rivaroxaban [Xarelto] 10 mg PO DAILY@0802/14/21 06/25/24 History Rosuvastatin Calcium [Crestor] 5 mg PO HS@209902/14/21 06/25/24 History Levothyroxine Sodium [Synthroid] 25 mcg PO DAILY@0800 03/08/21 06/25/24 History Sennosides [Senna] 8.6 mg PO HS PRN 03/08/21 06/25/24 History bisacodyL [Dulcolax] 10 mg RECTAL DAILY PRN 03/08/21 06/25/24 History Pantoprazole [Protonix] 40 mg PO DAILY@0800 05/04/21 06/25/24 History Acetaminophen Tab [Tylenol] 650 mg PO BID@0800,199906/25/24 06/25/24 History Acetaminophen [Tylenol] 650 mg PO Q6H PRN 06/25/24 06/25/24 History Cholecalciferol [Vitamin D3 (25 25 mcg PO DAILY@0806/25/24 06/25/24 History Mcg = 1000 Iu)] Ensure Enlive 120 ml PO BID@0800,1200 06/25/24 06/25/24 History Loperamide HCl [Loperamide] 2 mg PO QID PRN 06/25/24 06/25/24 History Magnesium Hydroxide [Milk of 7,200 mg PO Q48H PRN 06/25/24 06/25/24 History Magnesia Concentrate] Metoprolol Succinate (ER) [Toprol 25 mg PO DAILY@0800 06/25/24 06/25/24 History XL] Na Phos,M-B/Na Phos,Di-Ba [Fleet 133 ml RECTAL DAILY PRN 06/25/24 06/25/24 History Adult] Refresh Celluvisc Ophthalmic Gel 1% 1 drop LEFT EYE TID@0800,1200,1700 06/25/24 06/25/24 History Retaine Pm Opthalmic Ointment 1 applic LEFT EYE HS@2100 06/25/24 06/25/24 History Vit C/E/Zn/Coppr/Lutein/Zeaxan 1 cap PO BID@0800,1700 06/25/24 06/25/24 History [Preservision Areds 2 Softgel] guaiFENesin SYRUP 100MG/5ML 200 mg PO Q4H PRN 06/25/24 06/25/24 History [Robitussin] Allergies Allergy/AdvReac Type Severity Reaction Status Date / Time No Known Allergies Allergy Verified 06/25/24 07:53 Physical Exam Vitals: Vital Signs Temp Pulse Pulse Pulse Resp BP BP 06/25/24 07:48 97.8 F 74 18 177/72 06/25/24 04:44 67 16 136/78 06/24/24 22:32 70 18 148/86 06/24/24 18:38 60 06/24/24 18:29 98.2 F 60 18 139/62 Pulse Ox 06/25/24 07:48 95 06/25/24 04:44 96 06/24/24 22:32 96 06/24/24 18:38 06/24/24 18:29 96 Intake and Output 06/24/24 06/25/24 06/25/24 22:59 06:59 14:59 Other: Weight 49.895 kg In general patient is alert and oriented -3 in no distress HEENT head normocephalic and atraumatic Neck is supple no JVD no goiter no lymphadenopathy no carotid bruit Chest examination is clear to auscultation no crackles no wheezing Cardiac exam reveals regular heart sounds S1 and S2 no gallops no murmurs Abdomen is soft nontender no organomegaly with normal bowel sounds Extremity exam reveals no edema no cyanosis or clubbing Neurological examination reveals no gross focal deficits Results CBC & Chem 7: 06/25/24 07:16 06/25/24 07:16 Labs: Abnormal Lab Results - Last 24 Hours (Table) 06/24/24 06/24/24 06/25/24 Range/Units 19:05 19:05 07:16 WBC 1.9 L 2.2 L (3.8-10.6) k/uL RBC 2.23 L 2.31 L (3.80-5.40) m/uL Hgb 7.3 L 7.4 L (11.4-16.0) gm/dL Hct 24.8 L 25.7 L (34.0-46.0) % MCV 110.9 H 110.9 H (80.0-100.0) fL MCHC 29.3 L 28.9 L (31.0-37.0) g/dL RDW 17.0 H 17.1 H (11.5-15.5) % Neutrophils # (Manual) 0.60 L (1.3-7.7) k/uL Lymphocytes # (Manual) 0.91 L (1.0-4.8) k/uL Macrocytosis Marked A Marked A Chloride 109 H (98-107) mmol/L BUN 18 H (7-17) mg/dL Creatinine (0.52-1.04) mg/dL Glucose 116 H (74-99) mg/dL Total Protein 5.5 L (6.3-8.2) g/dL Albumin 3.3 L (3.5-5.0) g/dL 06/25/24 Range/Units 07:16 WBC (3.8-10.6) k/uL RBC (3.80-5.40) m/uL Hgb (11.4-16.0) gm/dL Hct (34.0-46.0) % MCV (80.0-100.0) fL MCHC (31.0-37.0) g/dL RDW (11.5-15.5) % Neutrophils # (Manual) (1.3-7.7) k/uL Lymphocytes # (Manual) (1.0-4.8) k/uL Macrocytosis Chloride 108 H (98-107) mmol/L BUN (7-17) mg/dL Creatinine 0.41 L (0.52-1.04) mg/dL Glucose (74-99) mg/dL Total Protein (6.3-8.2) g/dL Albumin (3.5-5.0) g/dL Assessment and Plan Plan: Anemia possible iron deficiency anemia Underlying history of hypertension Underlying history of hyperlipidemia Underlying history of hypothyroidism Underlying history of paroxysmal atrial fibrillation At this time patient was seen and examined Home medications reviewed and reordered No red blood cell transfusion given so far, will monitor hemoglobin closely, will check iron studies, vitamin B12 and folate level Consultation for gastroenterology was initiated Will follow closely
--- NOTE | 2024-06-26 14:42 | P.DS ---
Providers Date of admission: 06/24/24 22:09 Expected date of discharge: 06/26/24 Attending physician: Melissa Leiva Consults: 06/25/24 10:24 Consult Physician Routine Consulting Provider: Gerri Torres Consult Reason/Comments: anemia Do you want consulting provider notified?: Yes Primary care physician: Melissa Cali [facility] Course: Diagnosis on discharge: Anemia possible iron deficiency anemia Underlying history of hypertension Underlying history of hyperlipidemia Underlying history of hypothyroidism Underlying history of paroxysmal atrial fibrillation Hospital course: Prerna Hyde, is an 89-year-old female who presented to [facility] emergency room with a chief complaint of generalized weakness, patient had a CBC at the [facility] that revealed a hemoglobin of 6.9 She was evaluated in the emergency room vital examination on presentation revealed a temperature of 98.2 pulse 60 respiration 18 blood pressure 139/62 pulse ox 96% on room air Laboratory data revealed a white blood count of 12.9 hemoglobin 7.3 platelet count 198 BUN 18 creatinine 0.52 Testing in the emergency room revealed EKG revealed sinus rhythm with occasional supraventricular premature complexes Patient was admitted to medical floor for further evaluation and treatment On 06/26/2024 patient was seen and examined on the medical floor she is alert and oriented x 3 in no apparent distress there is no fever or chills no headache or dizziness no chest pain no shortness of breath no cough no nausea or vomiting no abdominal pain no diarrhea and no urinary symptoms hemoglobin has been stable above 7.3 patient was seen by gastroenterology no plans for endoscopy procedure at this time. Iron studies revealed low iron of 29 and low transferrin at 165 1 dose of IV iron will be given patient will be transferred back to [facility] Patient Condition at Discharge: Stable Plan - Discharge Summary Discharge Rx Participant: No New Discharge Prescriptions: Continue Aspirin EC [Ecotrin Low Dose] 81 mg PO DAILY@0800 timoloL maleate [Timolol Maleate] 1 drop BOTH EYES DAILY@0800 rOPINIRole HCL [Requip] 3 mg PO HS@2100 Donepezil HCl [Aricept] 5 mg PO HS@2100 Ferrous Sulfate [Iron (65 MG Elemental)] 325 mg PO DAILY@0800 Latanoprost Ophth [Xalatan 0.005%] 1 drop BOTH EYES HS@2100 Potassium Chloride ER [K-Dur 10] 10 meq PO DAILY@1700 lisinopriL [Prinivil] 5 mg PO DAILY@0800 Rosuvastatin Calcium [Crestor] 5 mg PO HS@2099 Sennosides [Senna] 8.6 mg PO HS PRN PRN Reason: Constipation Pantoprazole [Protonix] 40 mg PO DAILY@0800 Loperamide HCl [Loperamide] 2 mg PO QID PRN PRN Reason: Loose Stool Acetaminophen [Tylenol] 650 mg PO Q6H PRN PRN Reason: Fever And/ Or Pain Acetaminophen Tab [Tylenol] 650 mg PO BID@0800,1999 Cholecalciferol [Vitamin D3 (25 Mcg = 1000 Iu)] 25 mcg PO DAILY@0800 Retaine Pm Opthalmic Ointment 1 applic LEFT EYE HS@2099 Metoprolol Succinate (ER) [Toprol XL] 25 mg PO DAILY@0800 Rivaroxaban [Xarelto] 10 mg PO DAILY@0800 bisacodyL [Dulcolax] 10 mg RECTAL DAILY PRN PRN Reason: Constipation Levothyroxine Sodium [Synthroid] 25 mcg PO DAILY@0800 guaiFENesin SYRUP 100MG/5ML [Robitussin] 200 mg PO Q4H PRN PRN Reason: Cough Na Phos,M-B/Na Phos,Di-Ba [Fleet Adult] 133 ml RECTAL DAILY PRN PRN Reason: Constipation Refresh Celluvisc Ophthalmic Gel 1% 1 drop LEFT EYE TID@0800,1200,1700 Vit C/E/Zn/Coppr/Lutein/Zeaxan [Preservision Areds 2 Softgel] 1 cap PO BID@0800,1700 Ensure Enlive 120 ml PO BID@0800,1200 Magnesium Hydroxide [Milk of Magnesia Concentrate] 7,200 mg PO Q48H PRN PRN Reason: Constipation Discharge Medication List Aspirin EC [Ecotrin Low Dose] 81 mg PO DAILY@0812/23/15 [History] rOPINIRole HCL [Requip] 3 mg PO HS@209912/23/15 [History] timoloL maleate [Timolol Maleate] 1 drop BOTH EYES DAILY@0812/23/15 [History] Donepezil HCl [Aricept] 5 mg PO HS@209910/15/17 [History] Ferrous Sulfate [Iron (65 MG Elemental)] 325 mg PO DAILY@0812/25/17 [History] Latanoprost Ophth [Xalatan 0.005%] 1 drop BOTH EYES HS@209912/25/17 [History] Potassium Chloride ER [K-Dur 10] 10 meq PO DAILY@17012/25/17 [History] lisinopriL [Prinivil] 5 mg PO DAILY@0800 12/30/17 [History] Rivaroxaban [Xarelto] 10 mg PO DAILY@0802/14/21 [History] Rosuvastatin Calcium [Crestor] 5 mg PO HS@209902/14/21 [History] Levothyroxine Sodium [Synthroid] 25 mcg PO DAILY@0803/08/21 [History] Sennosides [Senna] 8.6 mg PO HS PRN 03/08/21 [History] bisacodyL [Dulcolax] 10 mg RECTAL DAILY PRN 03/08/21 [History] Pantoprazole [Protonix] 40 mg PO DAILY@0805/04/21 [History] Acetaminophen Tab [Tylenol] 650 mg PO BID@0800,199906/25/24 [History] Acetaminophen [Tylenol] 650 mg PO Q6H PRN 06/25/24 [History] Cholecalciferol [Vitamin D3 (25 Mcg = 1000 Iu)] 25 mcg PO DAILY@0806/25/24 [History] Ensure Enlive 120 ml PO BID@0800,1200 06/25/24 [History] Loperamide HCl [Loperamide] 2 mg PO QID PRN 06/25/24 [History] Magnesium Hydroxide [Milk of Magnesia Concentrate] 7,200 mg PO Q48H PRN 06/25/24 [History] Metoprolol Succinate (ER) [Toprol XL] 25 mg PO DAILY@0806/25/24 [History] Na Phos,M-B/Na Phos,Di-Ba [Fleet Adult] 133 ml RECTAL DAILY PRN 06/25/24 [History] Refresh Celluvisc Ophthalmic Gel 1% 1 drop LEFT EYE TID@0800,1200,1700 06/25/24 [History] Retaine Pm Opthalmic Ointment 1 applic LEFT EYE HS@209906/25/24 [History] Vit C/E/Zn/Coppr/Lutein/Zeaxan [Preservision Areds 2 Softgel] 1 cap PO BID@0800,1700 06/25/24 [History] guaiFENesin SYRUP 100MG/5ML [Robitussin] 200 mg PO Q4H PRN 06/25/24 [History] Follow up Appointment(s)/Referral(s): Melissa Leiva MD [Primary Care Provider] - 1-2 days
[2024-06-26] MEDS: SODIUM FERRIC GLUCONAT-SUCROSE 125 MG in SODIUM CHLORIDE 0.9% 100 ML IVPB ONE (14:44)
== END 2024-06-26 16:50 ==
LOC: EC 18:20 → 5NMEDONC 22:09
PROVIDERS: ADMIT Internal Medicine; ATTEND Internal Medicine
DX: D64.9 Anemia, unspecified (principal); E03.9 Hypothyroidism, unspecified; E11.9 Type 2 diabetes mellitus without complications; E78.5 Hyperlipidemia, unspecified; I10 Essential (primary) hypertension; I48.0 Paroxysmal atrial fibrillation; Z79.01 Long term (current) use of anticoagulants; Z79.82 Long term (current) use of aspirin; Z79.890 Hormone replacement therapy; Z79.899 Other long term (current) drug therapy; Z85.828 Personal history of other malignant neoplasm of skin; Z86.73 Personal history of transient ischemic attack (TIA), and cerebral infarction without residual deficits
CPT/HCPCS: 96365; 99285; 36415; 93005; 86900; 86901; 80053; 80048; 82607; 82728; 82746; 83540; 83550; 83605; 85025 ×2; 85610; 85730; 86850; G0378 ×3; J2916

== ENCOUNTER 2024-06-27 12:44 | Emergency (ER) | payer MEDICARE, BC, OTHER ==
--- NOTE | 2024-06-27 13:12 | ED ---
General Adult HPI - General Chief complaint: Recheck/Abnormal Lab/Rx Stated complaint: Weakness Time Seen by Provider: 06/27/24 12:48 Source: patient, EMS, RN notes reviewed Mode of arrival: EMS Limitations: no limitations - History of Present Illness Initial comments: Patient is a 89-year-old female presenting to the emergency department from prison with concern for low blood pressure. Patient reportedly stated she felt unwell and had blood pressure of systolic 97. Patient states this is not true and she feels fine. Patient has no complaints otherwise. - Related Data Home Medications Medication Instructions Recorded Confirmed Aspirin EC [Ecotrin Low Dose] 81 mg PO DAILY@79912/23/15 06/25/24 rOPINIRole HCL [Requip] 3 mg PO HS@209912/23/15 06/25/24 timoloL maleate [Timolol Maleate] 1 drop BOTH EYES DAILY@79912/23/15 06/25/24 Donepezil HCl [Aricept] 5 mg PO HS@209910/15/17 06/25/24 Ferrous Sulfate [Iron (65 MG 325 mg PO DAILY@79912/25/17 06/25/24 Elemental)] Latanoprost Ophth [Xalatan 0.005%] 1 drop BOTH EYES HS@209912/25/17 06/25/24 Potassium Chloride ER [K-Dur 10] 10 meq PO DAILY@169912/25/17 06/25/24 lisinopriL [Prinivil] 5 mg PO DAILY@79912/30/17 06/25/24 Rivaroxaban [Xarelto] 10 mg PO DAILY@79902/14/21 06/25/24 Rosuvastatin Calcium [Crestor] 5 mg PO HS@209902/14/21 06/25/24 Levothyroxine Sodium [Synthroid] 25 mcg PO DAILY@79903/08/21 06/25/24 Sennosides [Senna] 8.6 mg PO HS PRN 03/08/21 06/25/24 bisacodyL [Dulcolax] 10 mg RECTAL DAILY PRN 03/08/21 06/25/24 Pantoprazole [Protonix] 40 mg PO DAILY@79905/04/21 06/25/24 Acetaminophen Tab [Tylenol] 650 mg PO BID@799,199906/25/24 06/25/24 Acetaminophen [Tylenol] 650 mg PO Q6H PRN 06/25/24 06/25/24 Cholecalciferol [Vitamin D3 (25 25 mcg PO DAILY@0800 06/25/24 06/25/24 Mcg = 1000 Iu)] Ensure Enlive 120 ml PO BID@0800,1200 06/25/24 06/25/24 Loperamide HCl [Loperamide] 2 mg PO QID PRN 06/25/24 06/25/24 Magnesium Hydroxide [Milk of 7,200 mg PO Q48H PRN 06/25/24 06/25/24 Magnesia Concentrate] Metoprolol Succinate (ER) [Toprol 25 mg PO DAILY@0800 06/25/24 06/25/24 XL] Na Phos,M-B/Na Phos,Di-Ba [Fleet 133 ml RECTAL DAILY PRN 06/25/24 06/25/24 Adult] Refresh Celluvisc Ophthalmic Gel 1% 1 drop LEFT EYE TID@0800,1200,1700 06/25/24 06/25/24 Retaine Pm Opthalmic Ointment 1 applic LEFT EYE HS@2100 06/25/24 06/25/24 Vit C/E/Zn/Coppr/Lutein/Zeaxan 1 cap PO BID@0800,1700 06/25/24 06/25/24 [Preservision Areds 2 Softgel] guaiFENesin SYRUP 100MG/5ML 200 mg PO Q4H PRN 06/25/24 06/25/24 [Robitussin] Allergies Allergy/AdvReac Type Severity Reaction Status Date / Time No Known Allergies Allergy Verified 06/27/24 13:08 Review of Systems ROS Statement: Those systems with pertinent positive or pertinent negative responses have been documented in the HPI. ROS Other: All systems not noted in ROS Statement are negative. Constitutional: Denies: fever Eyes: Denies: eye pain ENT: Denies: ear pain Respiratory: Denies: dyspnea Cardiovascular: Denies: chest pain Endocrine: Denies: fatigue Gastrointestinal: Denies: abdominal pain Musculoskeletal: Denies: back pain Past Medical History Past Medical History: Cancer, CVA/TIA, Diabetes Mellitus, Eye Disorder, GERD/Reflux, Hyperlipidemia, Hypertension, Osteoarthritis (OA), Thyroid Disorder Additional Past Medical History / Comment(s): HX: DM, NO RX SINCE WGT LOSS. SCOLIOSIS, BACK PAIN. SKIN CA, MULT. CVA, SL generalized weakness residual, TIA 04/2013 (pt/francisco j think she has a couple). Irregular heart beat OCC, Bradycard ia at times, MINOR HEART MURMUR. GLAUCOMA. LT HIP FX 10/2017, HAS IRRITATING HARDWARE NOW. History of Any Multi-Drug Resistant Organisms: None Reported Past Surgical History: Hysterectomy Additional Past Surgical History / Comment(s): Colonoscopies w/ polypectomy- benign. MAIRA CATARACTS. Epidural INJ Lumbar Spine, LAST 10/07/17. 10/22/17 ORIF LT HIP. Past Anesthesia/Blood Transfusion Reactions: No Reported Reaction Past Psychological History: Anxiety, Depression Smoking Status: Never smoker Past Alcohol Use History: None Reported Past Drug Use History: None Reported - Past Family History Son(s) Family Medical History: Deep Vein Thrombosis (DVT) Father Family Medical History: Coronary Artery Disease (CAD), Myocardial Infarction (ID) Additional Family Medical History / Comment(s): Father of ID-pt unsure what age,. Mother Family Medical History: CVA/TIA General Exam Limitations: no limitations General appearance: alert, in no apparent distress Head exam: Present: atraumatic Eye exam: Present: normal appearance, PERRL, EOMI ENT exam: Present: normal oropharynx Neck exam: Present: normal inspection Respiratory exam: Present: normal lung sounds bilaterally Cardiovascular Exam: Present: regular rate, normal rhythm GI/Abdominal exam: Present: soft. Absent: tenderness Extremities exam: Present: normal inspection Neurological exam: Present: alert, oriented X3, CN II-XII intact. Absent: motor sensory deficit Expanded Patient oriented to: Present: person, place, time Motor strength exam: RUE: 5, LUE: 5, RLE: 5, LLE: 5 Psychiatric exam: Present: normal affect, normal mood Skin exam: Present: normal color Course Vital Signs 06/27/24 06/27/24 13:01 14:45 Temperature 98.1 F Pulse Rate 65 67 Respiratory 16 18 Rate Blood Pressure 125/60 126/63 O2 Sat by Pulse 100 97 Oximetry EKG Findings - EKG Results: EKG: interpreted by ERMD (Left axis. PVCs present. Intraventricular conduction delay), sinus rhythm, normal ST/T Medical Decision Making - Medical Decision Making Was pt. sent in by a medical professional or institution ([facility], [facility], urgent care, hospital, or prison...) When possible be specific @ -Patient was sent from prison Did you speak to anyone other than the patient for history (EMS, parent, family, police, friend...)? What history was obtained from this source @ -No Did you review nursing and triage notes (agree or disagree)? Why? @ -Chart reviewed from nursing facility Were old charts reviewed (outside hosp., previous admission, EMS record, old EKG, old radiological studies, urgent care reports/EKG's, prison records)? Report findings @ -Previous admission reviewed and hemoglobin levels Differential Diagnosis (chest pain, altered mental status, abdominal pain women, abdominal pain men, vaginal bleeding, weakness, fever, dyspnea, syncope, headache, dizziness, GI bleed, back pain, seizure, CVA, palpatations, mental health, musculoskeletal)? @ -Differential Weakness: Hypoglycemia, shock, sepsis, hyponatremia, anemia, infection, ID, ETOH, adverse medicine reaction, overdose, stroke, this is not meant to be an all-inclusive list. EKG interpreted by me (3pts min.). @ -As above X-rays interpreted by me (1pt min.). @ -Chest x-ray shows no acute process CT interpreted by me (1pt min.). @ -None done U/S interpreted by me (1pt. min.). @ -None done What testing was considered but not performed or refused? (CT, X-rays, U/S, labs)? Why? @ -None What meds were considered but not given or refused? Why? @ -None Did you discuss the management of the patient with other professionals (professionals i.e. [facility]eses, [facility], lab, RT, psych nurse, social services technician, wireless sales expert, teacher, chief legal officer, manager of case management)? Give summary @ -Case discussed in detail with Dr. Leiva who is familiar with this patient. He is aware that urinalysis was not provided and further labs were discussed. He does recommend that patient can be discharged home to prison. Was smoking cessation discussed for >3mins.? @ -No Was critical care preformed (if so, how long)? @ -No Were there social determinants of health that impacted care today? How? (Homelessness, low income, unemployed, alcoholism, drug addiction, transp ortation, low edu. Level, literacy, decrease access to med. care, alf, rehab)? @ -No Was there de-escalation of care discussed even if they declined (Discuss DNR or withdrawal of care, Hospice)? DNR status @ -No What co-morbidities impacted this encounter? (DM, HTN, Smoking, COPD, CAD, Cancer, CVA, ARF, Chemo, Hep., AIDS, mental health diagnosis, sleep apnea, morbid obesity)? @ -None Was patient admitted / discharged? Hospital course, mention meds given and route, prescriptions, significant lab abnormalities, going to OR and other pertinent info. @ -Patient presents with fatigue and borderline blood pressure. Evaluation unremarkable. Patient states she feels well. Family arrives and feel patient is acting normally. They are all comfortable with discharge home as is her primary care physician. Patient will be discharged. Patient and family updated. Undiagnosed new problem with uncertain prognosis? @ -No Drug Therapy requiring intensive monitoring for toxicity (Heparin, Nitro, Insulin, Cardizem)? @ -No Were any procedures done? @ -No Diagnosis/symptom? @ -Fatigue Acute, or Chronic, or Acute on Chronic? @ -Acute Uncomplicated (without systemic symptoms) or Complicated (systemic symptoms)? @ -Default Side effects of treatment? @ -No Exacerbation, Progression, or Severe Exacerbation? @ -No Poses a threat to life or bodily function? How? (Chest pain, USA, ID, pneumonia, PE, COPD, DKA, ARF, appy, cholecystitis, CVA, Diverticulitis, Homicidal, Suicidal, threat to staff... and all critical care pts) @ -No - Lab Data Result diagrams: 06/27/24 13:53 06/27/24 13:53 Lab Results 06/27/24 06/27/24 06/27/24 Range/Units 13:53 13:53 13:53 WBC 4.1 (3.8-10.6) k/uL RBC 2.63 L (3.80-5.40) m/uL Hgb 8.5 L (11.4-16.0) gm/dL Hct 28.8 L (34.0-46.0) % MCV 109.6 H (80.0-100.0) fL MCH 32.2 (25.0-35.0) pg MCHC 29.3 L (31.0-37.0) g/dL RDW 17.0 H (11.5-15.5) % Plt Count 261 (150-450) k/uL MPV 7.9 Neutrophils % 83 % Lymphocytes % 8 % Monocytes % 7 % Eosinophils % 0 % Basophils % 0 % Neutrophils # 3.4 (1.3-7.7) k/uL Lymphocytes # 0.3 L (1.0-4.8) k/uL Monocytes # 0.3 (0-1.0) k/uL Eosinophils # 0.0 (0-0.7) k/uL Basophils # 0.0 (0-0.2) k/uL Hypochromasia Marked Anisocytosis Slight Macrocytosis Marked A PT 12.8 H (10.0-12.5) sec INR 1.2 H (<1.2) APTT 26.0 (22.0-30.0) sec Sodium 138 (137-145) mmol/L Potassium 4.2 (3.5-5.1) mmol/L Chloride 106 (98-107) mmol/L Carbon Dioxide 25 (22-30) mmol/L Anion Gap 7 mmol/L BUN 23 H (7-17) mg/dL Creatinine 0.63 (0.52-1.04) mg/dL Est GFR (CKD-EPI)AfAm >90 (>60 ml/min/1.73 sqM) Est GFR (CKD-EPI)NonAf 80 (>60 ml/min/1.73 sqM) Glucose 102 H (74-99) mg/dL Plasma Lactic Acid Ankur (0.7-2.0) mmol/L Calcium 9.4 (8.4-10.2) mg/dL Total Bilirubin 0.5 (0.2-1.3) mg/dL AST 19 (14-36) U/L ALT 13 (4-34) U/L Alkaline Phosphatase 75 (38-126) U/L Troponin I (0.000-0.034) ng/mL Total Protein 6.4 (6.3-8.2) g/dL Albumin 4.0 (3.5-5.0) g/dL 06/27/24 06/27/24 Range/Units 13:53 13:53 WBC (3.8-10.6) k/uL RBC (3.80-5.40) m/uL Hgb (11.4-16.0) gm/dL Hct (34.0-46.0) % MCV (80.0-100.0) fL MCH (25.0-35.0) pg MCHC (31.0-37.0) g/dL RDW (11.5-15.5) % Plt Count (150-450) k/uL MPV Neutrophils % % Lymphocytes % % Monocytes % % Eosinophils % % Basophils % % Neutrophils # (1.3-7.7) k/uL Lymphocytes # (1.0-4.8) k/uL Monocytes # (0-1.0) k/uL Eosinophils # (0-0.7) k/uL Basophils # (0-0.2) k/uL Hypochromasia Anisocytosis Macrocytosis PT (10.0-12.5) sec INR (<1.2) APTT (22.0-30.0) sec Sodium (137-145) mmol/L Potassium (3.5-5.1) mmol/L Chloride (98-107) mmol/L Carbon Dioxide (22-30) mmol/L Anion Gap mmol/L BUN (7-17) mg/dL Creatinine (0.52-1.04) mg/dL Est GFR (CKD-EPI)AfAm (>60 ml/min/1.73 sqM) Est GFR (CKD-EPI)NonAf (>60 ml/min/1.73 sqM) Glucose (74-99) mg/dL Plasma Lactic Acid Ankur 1.1 (0.7-2.0) mmol/L Calcium (8.4-10.2) mg/dL Total Bilirubin (0.2-1.3) mg/dL AST (14-36) U/L ALT (4-34) U/L Alkaline Phosphatase (38-126) U/L Troponin I <0.012 (0.000-0.034) ng/mL Total Protein (6.3-8.2) g/dL Albumin (3.5-5.0) g/dL Disposition Clinical Impression: Fatigue Disposition: HOME SELF-CARE Condition: Stable Instructions (If sedation given, give patient instructions): Fatigue (ED) Additional Instructions: Please do follow-up with primary care physician in the next couple of days for recheck. Return for low blood pressure, altered mental status or weakness, worsening symptoms or other concerns. Is patient prescribed a controlled substance at d/c from ED?: No Referrals: Melissa Leiva MD [Primary Care Provider] - 1-2 days Time of Disposition: 15:10
[2024-06-27 13:19] VITALS: TEMP 98.1
[2024-06-27] MEDS: LACTATED RINGERS 1,000 ML IV SCH (13:54)
--- NOTE | 2024-06-27 14:06 | XR ---
EXAMINATION TYPE: XR chest 2V DATE OF EXAM: 06/27/2024 2:02 PM COMPARISON: 05/11/2021 CLINICAL INDICATION: Female, 89 years old with history of Weakness: Shortness of breath TECHNIQUE: XR chest 2V views of the chest are obtained. FINDINGS: Scattered senescent parenchymal changes noted. Hyperinflation compatible with COPD. No evidence for infiltrate. No evidence for atelectasis. Heart size is stable. Mediastinal structures are stable and grossly unremarkable. No evidence for hilar prominence. Degenerative changes dorsal spine. IMPRESSION: 1. No evidence for acute pulmonary disease. [facility], , 06/27/2024 2:04 PM
[2024-06-27 14:09] LABS: Anisocytosis Slight; Basophils % (A) 0 %; Eosinophils % (A) 0 %; HCT 28.8 % (34.0-46.0); HGB 8.5 gm/dL (11.4-16.0); Hypochromasia Marked; Lymphocytes # (A) 0.3 k/uL (1.0-4.8); Lymphocytes % (A) 8 %; MCH 32.2 pg (25.0-35.0); MCHC 29.3 g/dL (31.0-37.0); MCV 109.6 fL (80.0-100.0); Macrocytosis Marked; Mean Platelet Volume 7.9; Monocytes # (A) 0.3 k/uL (0-1.0); Monocytes % (A) 7 %; Neutrophils # (A) 3.4 k/uL (1.3-7.7); Neutrophils % (A) 83 %; Platelet Count 261 k/uL (150-450); RBC 2.63 m/uL (3.80-5.40); WBC 4.1 k/uL (3.8-10.6)
[2024-06-27 14:23] LABS: INR 1.2 (<1.2); Prothrombin Time 12.8 sec (10.0-12.5)
[2024-06-27 14:26] LABS: ALT 13 U/L (4-34); AST 19 U/L (14-36); African American GFR (CKD) >90 (>60 ml/min/1.73 sqM); Alkaline Phosphatase 75 U/L (38-126); Anion Gap 7 mmol/L; Blood Urea Nitrogen 23 mg/dL (7-17); Calcium 9.4 mg/dL (8.4-10.2); Carbon Dioxide 25 mmol/L (22-30); Chloride 106 mmol/L (98-107); Glucose 102 mg/dL (74-99); Non-African American GFR(CKD) 80 (>60 ml/min/1.73 sqM); Potassium 4.2 mmol/L (3.5-5.1); Sodium 138 mmol/L (137-145); Total Bilirubin 0.5 mg/dL (0.2-1.3); Total Protein 6.4 g/dL (6.3-8.2)
[2024-06-27 14:46] VITALS: BP 126/63; PULSE 67
[2024-06-27 15:22] LABS: Amorphous Sediment,Urine Rare /hpf; Appearance,Urine Cloudy (Clear); Bacteria,Urine Many /hpf; Bilirubin,Urine Negative (Negative); Blood,Urine Moderate (Negative); Budding Yeast,Urine Rare /hpf; Color,Urine Yellow; Glucose,Urine (UA) Negative (Negative); Hyaline Casts,Urine 2 /lpf (0-2); Ketones,Urine Negative (Negative); Leukocyte Esterase,Urine Trace (Negative); Mucus,Urine Rare /hpf; Nitrite,Urine Negative (Negative); Protein,Urine 1+ (Negative); RBC,Urine 6 /hpf (0-5); Specific Gravity,Urine 1.023 (1.001-1.035); Squamous Epithelial Cell,Urine 5 /hpf (0-4); WBC,Urine 8 /hpf (0-5)
[2024-06-27 16:00] VITALS: RESP 16
== END 2024-06-27 15:30 | disposition home or self-care (01) ==
LOC: EC 12:44
DX: R53.83 Other fatigue (principal); Z86.73 Personal history of transient ischemic attack (TIA), and cerebral infarction without residual deficits
CPT/HCPCS: 36415; 71046; 80053; 81001; 83605; 84484; 85025; 85610; 85730; 93005

== ENCOUNTER 2024-07-08 17:06 | Inpatient (IN) | payer MEDICARE, BC ==
--- NOTE | 2024-07-08 17:38 | ED ---
Recheck HPI - General Chief Complaint: Recheck/Abnormal Lab/Rx Stated Complaint: abn labs Time Seen by Provider: 07/08/24 17:37 Source: patient, EMS, RN notes reviewed, old records reviewed Mode of arrival: EMS Limitations: no limitations - History of Present Illness Initial Comments: 89-year-old female presented to the ER via EMS from [facility] for evaluation of low hemoglobin. Patient has a past medical history significant of iron deficiency anemia, diabetes mellitus, hypertension, cancer, hypertension, thyroid disorder, hyperlipidemia. Patient had laboratory studies drawn today with a hemoglobin showing 5.9. History is limited given patient's mental status. She is ANO x 2 at baseline. She is unsure why she is here. She denies any current pain, shortness of breath, chest pain, abdominal pain, nausea, vomiting, diarrhea or constipation. Per chart review, patient was seen here on 06-27-2024 for evaluation of low blood pressure. Patient was ultimately discharged home back to [facility]. - Related Data Home Medications Medication Instructions Recorded Confirmed Aspirin EC [Ecotrin Low Dose] 81 mg PO DAILY@79912/23/15 06/25/24 rOPINIRole HCL [Requip] 3 mg PO HS@209912/23/15 06/25/24 timoloL maleate [Timolol Maleate] 1 drop BOTH EYES DAILY@79912/23/15 06/25/24 Donepezil HCl [Aricept] 5 mg PO HS@209910/15/17 06/25/24 Ferrous Sulfate [Iron (65 MG 325 mg PO DAILY@79912/25/17 06/25/24 Elemental)] Latanoprost Ophth [Xalatan 0.005%] 1 drop BOTH EYES HS@209912/25/17 06/25/24 Potassium Chloride ER [K-Dur 10] 10 meq PO DAILY@169912/25/17 06/25/24 lisinopriL [Prinivil] 5 mg PO DAILY@79912/30/17 06/25/24 Rivaroxaban [Xarelto] 10 mg PO DAILY@79902/14/21 06/25/24 Rosuvastatin Calcium [Crestor] 5 mg PO HS@209902/14/21 06/25/24 Levothyroxine Sodium [Synthroid] 25 mcg PO DAILY@79903/08/21 06/25/24 Sennosides [Senna] 8.6 mg PO HS PRN 03/08/21 06/25/24 bisacodyL [Dulcolax] 10 mg RECTAL DAILY PRN 03/08/21 06/25/24 Pantoprazole [Protonix] 40 mg PO DAILY@0800 05/04/21 06/25/24 Acetaminophen Tab [Tylenol] 650 mg PO BID@0800,2000 06/25/24 06/25/24 Acetaminophen [Tylenol] 650 mg PO Q6H PRN 06/25/24 06/25/24 Cholecalciferol [Vitamin D3 (25 25 mcg PO DAILY@0800 06/25/24 06/25/24 Mcg = 1000 Iu)] Ensure Enlive 120 ml PO BID@0800,1200 06/25/24 06/25/24 Loperamide HCl [Loperamide] 2 mg PO QID PRN 06/25/24 06/25/24 Magnesium Hydroxide [Milk of 7,200 mg PO Q48H PRN 06/25/24 06/25/24 Magnesia Concentrate] Metoprolol Succinate (ER) [Toprol 25 mg PO DAILY@0800 06/25/24 06/25/24 XL] Na Phos,M-B/Na Phos,Di-Ba [Fleet 133 ml RECTAL DAILY PRN 06/25/24 06/25/24 Adult] Refresh Celluvisc Ophthalmic Gel 1% 1 drop LEFT EYE TID@0800,1200,1700 06/25/24 06/25/24 Retaine Pm Opthalmic Ointment 1 applic LEFT EYE HS@2100 06/25/24 06/25/24 Vit C/E/Zn/Coppr/Lutein/Zeaxan 1 cap PO BID@0800,1700 06/25/24 06/25/24 [Preservision Areds 2 Softgel] guaiFENesin SYRUP 100MG/5ML 200 mg PO Q4H PRN 06/25/24 06/25/24 [Robitussin] Magic Cup 1 dose PO DAILY@1200 07/08/24 07/08/24 Megestrol [Megace] 400 mg PO DAILY@0600 07/08/24 07/08/24 Allergies Allergy/AdvReac Type Severity Reaction Status Date / Time No Known Allergies Allergy Verified 07/08/24 18:55 Review of Systems ROS Statement: Those systems with pertinent positive or pertinent negative responses have been documented in the HPI. ROS Other: All systems not noted in ROS Statement are negative. Past Medical History Past Medical History: Cancer, CVA/TIA, Diabetes Mellitus, Eye Disorder, G ERD/Reflux, Hyperlipidemia, Hypertension, Osteoarthritis (OA), Thyroid Disorder Additional Past Medical History / Comment(s): HX: DM, NO RX SINCE WGT LOSS. SCOLIOSIS, BACK PAIN. SKIN CA, MULT. CVA, SL generalized weakness residual, TIA 04/2013 (pt/francisco j think she has a couple). Irregular heart beat OCC, Bradycardia at times, MINOR HEART MURMUR. GLAUCOMA. LT HIP FX 10/2017, HAS IRRITATING HARDWARE NOW. History of Any Multi-Drug Resistant Organisms: None Reported Past Surgical History: Hysterectomy Additional Past Surgical History / Comment(s): Colonoscopies w/ polypectomy- benign. MAIRA CATARACTS. Epidural INJ Lumbar Spine, LAST 10/07/17. 10/22/17 ORIF LT HIP. Past Anesthesia/Blood Transfusion Reactions: No Reported Reaction Past Psychological History: Anxiety, Depression Smoking Status: Never smoker Past Alcohol Use History: None Reported Past Drug Use History: None Reported - Past Family History Son(s) Family Medical History: Deep Vein Thrombosis (DVT) Father Family Medical History: Coronary Artery Disease (CAD), Myocardial Infarction ([place]) Additional Family Medical History / Comment(s): Father of [place]-pt unsure what age,. Mother Family Medical History: CVA/TIA General Exam Limitations: no limitations General appearance: alert, in no apparent distress Respiratory exam: Present: normal lung sounds bilaterally. Absent: respiratory distress, wheezes, rales, rhonchi, stridor Cardiovascular Exam: Present: regular rate, normal rhythm, normal heart sounds. Absent: systolic murmur, diastolic murmur, rubs, gallop, clicks GI/Abdominal exam: Present: soft, normal bowel sounds. Absent: distended, tenderness, guarding, rebound, rigid Extremities exam: Present: normal inspection, full ROM, normal capillary refill. Absent: tenderness, pedal edema, joint swelling, calf tenderness Neurological exam: Present: alert, oriented X3, CN II-XII intact Skin exam: Present: warm, dry, intact, normal color. Absent: rash Course Vital Signs 07/08/24 07/08/24 17:08 18:25 Temperature 98.2 F Pulse Rate 65 73 Respiratory 16 20 Rate Blood Pressure 137/59 119/83 O2 Sat by Pulse 95 100 Oximetry - Reevaluation(s) Reevaluation #1: 07/08/24 18:[address] Leiva who accepts admission. Medical Decision Making - Medical Decision Making Was pt. sent in by a medical professional or institution (, PA, ANGLESMITH, urgent care, hospital, or [facility]cf...) When possible be specific @ -Patient sent by [facility] for evaluation of low hemoglobin. Did you speak to anyone other than the patient for history (EMS, parent, family, police, friend...)? What history was obtained from this source @ -No Did you review nursing and triage notes (agree or disagree)? Why? @ -I reviewed and agree with nursing and triage notes Were old charts reviewed (outside hosp., previous admission, EMS record, old EKG, old radiological studies, urgent care reports/EKG's, chcf records)? Report findings @ -Patient was admitted here on 06-24-2024 patient admitted for weakness. Patient underwent GI consultation who do not plan on endoscopic evlauation and as laboratory studies correlate with iron deficency anemia.. Patient given 1 dose of IV iron during admission and was discharged back to [facility] after 2 day stay. Patient was also seen on 06-27-2024 for fatigue. After work up patient was discharged back to [facility]. Differential Diagnosis (chest pain, altered mental status, abdominal pain women, abdominal pain men, vaginal bleeding, weakness, fever, dyspnea, syncope, headache, dizziness, GI bleed, back pain, seizure, CVA, palpatations, mental health, musculoskeletal)? @ -Differential Weakness:Hypoglycemia, shock, sepsis, hyponatremia, anemia, infection, NM, ETOH, adverse medicine reaction, overdose, stroke, this is not meant to be an all-inclusive list. EKG interpreted by me (3pts min.). @ -As above X-rays interpreted by me (1pt min.). @ -None done CT interpreted by me (1pt min.). @ -None done U/S interpreted by me (1pt. min.). @ -None done What testing was considered but not performed or refused? (CT, X-rays, U/S, labs)? Why? @ -None What meds were considered but not given or refused? Why? @ -None Did you discuss the management of the patient with other professionals (kaylie gruber i.e. , PA, ANGLESMITH, lab, RT, psych nurse, social services manager, miller head wet process, teacher, returning officer, casey saw operator)? Give summary @ -Case discussed with Dr. Leiva who recommends admission and transfusing 1 unit of blood. Was smoking cessation discussed for >3mins.? @ -No Was critical care preformed (if so, how long)? @ -No Were there social determinants of health that impacted care today? How? (Homel essness, low income, unemployed, alcoholism, drug addiction, transportation, low edu. Level, literacy, decrease access to med. care, halfway, rehab)? @ -No Was there de-escalation of care discussed even if they declined (Discuss DNR or withdrawal of care, Hospice)? DNR status @ -No What co-morbidities impacted this encounter? (DM, HTN, Smoking, COPD, CAD, Cancer, CVA, ARF, Chemo, Hep., AIDS, mental health diagnosis, sleep apnea, morbid obesity)? @ -Iron deficiency anemia Was patient admitted / discharged? Hospital course, mention meds given and route, prescriptions, significant lab abnormalities, going to OR and other pertinent info. @ -Admitted. 89-year-old female presented to the ER via EMS from [facility] for evaluation of low hemoglobin. Patient had laboratory studies drawn this morning showing a hemoglobin of 5.9. Upon rooming, history and physical exam completed. Vitals within acceptable limits. Patient denying any acute complaints. Patient had no signs of acute distress. CBC redrawn showing a hemoglobin of 7.1. This does appear to be around patient's baseline. CMP unimpressive. Given this is chronic in nature, case was discussed with patient's PCP, Dr. Leiva. He would like patient transfused with 1 L of RBCs and admitted for observation. Upon reevaluation, patient resting up in stretcher no signs of acute distress. Results discussed with patient and son, at bedside, all questions answered. Patient and son are agreeable for admission. Patient in stable condition. Case discussed with ED attending, Dr. Perez. Undiagnosed new problem with uncertain prognosis? @ -No Drug Therapy requiring intensive monitoring for toxicity (Heparin, Nitro, Insulin, Cardizem)? @ -No Were any procedures done? @ -No Diagnosis/symptom? @ -Anemia Acute, or Chronic, or Acute on Chronic? @ -Acute Uncomplicated (without systemic symptoms) or Complicated (systemic symptoms)? @ -Complicated Side effects of treatment? @ -No Exacerbation, Progression, or Severe Exacerbation? @ -No Poses a threat to life or bodily function? How? (Chest pain, [place], NM, pneumonia, PE, COPD, DKA, ARF, appy, cholecystitis, CVA, Diverticulitis, Homicidal, Suicidal, threat to staff... and all critical care pts) @ -Yes - Lab Data Result diagrams: 07/08/24 17:33 07/08/24 17:33 Lab Results 07/08/24 07/08/24 07/08/24 Range/Units 17:25 17:33 17:33 WBC 2.3 L (3.8-10.6) k/uL RBC 2.22 L (3.80-5.40) m/uL Hgb 7.1 L (11.4-16.0) gm/dL Hct 24.9 L (34.0-46.0) % MCV 111.9 H (80.0-100.0) fL MCH 32.1 (25.0-35.0) pg MCHC 28.7 L (31.0-37.0) g/dL RDW 18.0 H (11.5-15.5) % Plt Count 285 (150-450) k/uL MPV 8.1 Neutrophils % 50 % Lymphocytes % 33 % Monocytes % 9 % Eosinophils % 4 % Basophils % 0 % Neutrophils # 1.1 L (1.3-7.7) k/uL Lymphocytes # 0.8 L (1.0-4.8) k/uL Monocytes # 0.2 (0-1.0) k/uL Eosinophils # 0.1 (0-0.7) k/uL Basophils # 0.0 (0-0.2) k/uL Manual Slide Review Performed Hypochromasia Marked Anisocytosis Slight Macrocytosis Marked A Sodium 139 (137-145) mmol/L Potassium 4.2 (3.5-5.1) mmol/L Chloride 107 (98-107) mmol/L Carbon Dioxide 22 (22-30) mmol/L Anion Gap 10 mmol/L BUN 24 H (7-17) mg/dL Creatinine 0.54 (0.52-1.04) mg/dL Est GFR (CKD-EPI)AfAm >90 (>60 ml/min/1.73 sqM) Est GFR (CKD-EPI)NonAf 84 (>60 ml/min/1.73 sqM) Glucose 120 H (74-99) mg/dL Plasma Lactic Acid Ankur (0.7-2.0) mmol/L Calcium 9.1 (8.4-10.2) mg/dL Total Bilirubin 0.3 (0.2-1.3) mg/dL AST 35 (14-36) U/L ALT 37 H (4-34) U/L Alkaline Phosphatase 69 (38-126) U/L Total Protein 6.1 L (6.3-8.2) g/dL Albumin 3.7 (3.5-5.0) g/dL Blood Type A Positive Blood Type Recheck A Pos Bld Type Recheck Status No Antibody Screen NEGATIVE Crossmatch See Detail Spec Expiration Date 07/11/2024 - 232407/08/24 Range/Units 17:33 WBC (3.8-10.6) k/uL RBC (3.80-5.40) m/uL Hgb (11.4-16.0) gm/dL Hct (34.0-46.0) % MCV (80.0-100.0) fL MCH (25.0-35.0) pg MCHC (31.0-37.0) g/dL RDW (11.5-15.5) % Plt Count (150-450) k/uL MPV Neutrophils % % Lymphocytes % % Monocytes % % Eosinophils % % Basophils % % Neutrophils # (1.3-7.7) k/uL Lymphocytes # (1.0-4.8) k/uL Monocytes # (0-1.0) k/uL Eosinophils # (0-0.7) k/uL Basophils # (0-0.2) k/uL Manual Slide Review Hypochromasia Anisocytosis Macrocytosis Sodium (137-145) mmol/L Potassium (3.5-5.1) mmol/L Chloride (98-107) mmol/L Carbon Dioxide (22-30) mmol/L Anion Gap mmol/L BUN (7-17) mg/dL Creatinine (0.52-1.04) mg/dL Est GFR (CKD-EPI)AfAm (>60 ml/min/1.73 sqM) Est GFR (CKD-EPI)NonAf (>60 ml/min/1.73 sqM) Glucose (74-99) mg/dL Plasma Lactic Acid Ankur 1.7 (0.7-2.0) mmol/L Calcium (8.4-10.2) mg/dL Total Bilirubin (0.2-1.3) mg/dL AST (14-36) U/L ALT (4-34) U/L Alkaline Phosphatase (38-126) U/L Total Protein (6.3-8.2) g/dL Albumin (3.5-5.0) g/dL Blood Type Blood Type Recheck Bld Type Recheck Status Antibody Screen Crossmatch Spec Expiration Date - EKG Data -: EKG Interpreted by Me EKG Comments: EKG taken at 18: 02 showing atrial fibrillation with inverted T waves in inferior leads. Occasional PVC. Ventricular rate 71, QRS duration 140, QT/QTc 414/436. EKG similar to prior. Disposition Clinical Impression: Anemia Disposition: ADMITTED IP TO THIS HOSP Condition: Stable Referrals: Melissa Leiva MD [Primary Care Provider] - 1-2 days Time of Disposition: 18:25
[2024-07-08 17:42] LABS: Anisocytosis Slight; Basophils % (A) 0 %; Eosinophils # (A) 0.1 k/uL (0-0.7); Eosinophils % (A) 4 %; HCT 24.9 % (34.0-46.0); HGB 7.1 gm/dL (11.4-16.0); Hypochromasia Marked; Lymphocytes # (A) 0.8 k/uL (1.0-4.8); Lymphocytes % (A) 33 %; MCH 32.1 pg (25.0-35.0); MCHC 28.7 g/dL (31.0-37.0); MCV 111.9 fL (80.0-100.0); Macrocytosis Marked; Mean Platelet Volume 8.1; Monocytes # (A) 0.2 k/uL (0-1.0); Monocytes % (A) 9 %; Neutrophils # (A) 1.1 k/uL (1.3-7.7); Neutrophils % (A) 50 %; Platelet Count 285 k/uL (150-450); RBC 2.22 m/uL (3.80-5.40); WBC 2.3 k/uL (3.8-10.6)
[2024-07-08] MEDS ORDERED: NALOXONE 0.4 MG/ML 1 ML VIAL IV PRN (18:23)
[2024-07-08 18:25] LABS: ALT 37 U/L (4-34); AST 35 U/L (14-36); African American GFR (CKD) >90 (>60 ml/min/1.73 sqM); Albumin 3.7 g/dL (3.5-5.0); Alkaline Phosphatase 69 U/L (38-126); Anion Gap 10 mmol/L; Blood Urea Nitrogen 24 mg/dL (7-17); Calcium 9.1 mg/dL (8.4-10.2); Carbon Dioxide 22 mmol/L (22-30); Chloride 107 mmol/L (98-107); Glucose 120 mg/dL (74-99); Non-African American GFR(CKD) 84 (>60 ml/min/1.73 sqM); Potassium 4.2 mmol/L (3.5-5.1); Sodium 139 mmol/L (137-145); Total Bilirubin 0.3 mg/dL (0.2-1.3); Total Protein 6.1 g/dL (6.3-8.2)
[2024-07-08] MEDS: ACETAMINOPHEN TAB 325 MG TAB PO PRN (22:48)
[2024-07-09] MEDS ORDERED: guaiFENesin SYRUP 100MG/5ML 200 MG/10 ML CUP PO PRN (09:09)
[2024-07-09] MEDS ORDERED: bisacodyL 10 MG SUPP RECTAL PRN (09:09)
[2024-07-09] MEDS ORDERED: MAGNESIUM HYDROXIDE 2,400 MG/30 ML CUP PO PRN (09:09)
[2024-07-09] MEDS ORDERED: NA PHOS,M-B/NA PHOS,DI-BA 133 ML ENEMA RECTAL PRN (09:09)
--- NOTE | 2024-07-09 09:16 | P.HPIM ---
History of Present Illness H&P Date: 07/09/24 Prerna Hyde is an 89-year-old female patient who presented to the ER with concerns of anemia patient is a long-term resident at [facility] and was recently admitted for similar anemia at the time patient was evaluated by GI services no endoscopic study completed at the time no signs of bleeding. Upon arrival patient's hemoglobin was 5.9. Patient did receive 1 unit of PRBCs repeat hemoglobin 7.1. Patient has a past medical history of CVA and A-fib in which she is maintained on Xarelto., Diabetes mellitus, GERD, hyperlipidemia, hypertension tension and dementia. At this time patient denies chest pain or shortness of breath. Patient denies nausea vomiting or diarrhea. Patient denies any urinary burning or frequency. Current vital signs temp 97.9, heart 62, respiratory rate 17, blood pressure 149/77 with a pulse ox of 100% on room air. Surgical services will be consulted. Patient denies chest pain or shortness of breath. Patient denies nausea vomiting or diarrhea. Patient den ies any urinary burning or frequency Review of Systems Please refer to HPI otherwise unremarkable Past Medical History Past Medical History: Cancer, CVA/TIA, Diabetes Mellitus, Eye Disorder, GERD/Reflux, Hyperlipidemia, Hypertension, Osteoarthritis (OA), Thyroid Disorder Additional Past Medical History / Comment(s): HX: DM, NO RX SINCE WGT LOSS. SCOLIOSIS, BACK PAIN. SKIN CA, MULT. CVA, SL generalized weakness residual, TIA 04/2013 (pt/francisco j think she has a couple). Irregular heart beat OCC, Bradycar taylor at times, MINOR HEART MURMUR. GLAUCOMA. LT HIP FX 10/2017, HAS IRRITATING HARDWARE NOW. History of Any Multi-Drug Resistant Organisms: None Reported Past Surgical History: Hysterectomy Additional Past Surgical History / Comment(s): Colonoscopies w/ polypectomy- benign. MAIRA CATARACTS. Epidural INJ Lumbar Spine, LAST 10/07/17. 10/22/17 ORIF LT HIP. Past Anesthesia/Blood Transfusion Reactions: No Reported Reaction Past Psychological History: Anxiety, Depression Additional Psychological History / Comment(s): Pt from [facility] Smoking Status: Never smoker Past Alcohol Use History: None Reported Past Drug Use History: None Reported - Past Family History Son(s) Family Medical History: Deep Vein Thrombosis (DVT) Father Family Medical History: Coronary Artery Disease (CAD), Myocardial Infarction ([place]) Additional Family Medical History / Comment(s): Father of [place]-pt unsure what age,. Mother Family Medical History: CVA/TIA Medications and Allergies Home Medications Medication Instructions Recorded Confirmed Type Aspirin EC [Ecotrin Low Dose] 81 mg PO DAILY@0812/23/15 07/08/24 History rOPINIRole HCL [Requip] 3 mg PO HS@209912/23/15 07/08/24 History timoloL maleate [Timolol Maleate] 1 drop BOTH EYES DAILY@79912/23/15 07/08/24 History Donepezil HCl [Aricept] 5 mg PO HS@209910/15/17 07/08/24 History Ferrous Sulfate [Iron (65 MG 325 mg PO DAILY@79912/25/17 07/08/24 History Elemental)] Latanoprost Ophth [Xalatan 0.005%] 1 drop BOTH EYES HS@209912/25/17 07/08/24 History Potassium Chloride ER [K-Dur 10] 10 meq PO DAILY@169912/25/17 07/08/24 History lisinopriL [Prinivil] 5 mg PO DAILY@79912/30/17 07/08/24 History Rivaroxaban [Xarelto] 10 mg PO DAILY@79902/14/21 07/08/24 History Rosuvastatin Calcium [Crestor] 5 mg PO HS@209902/14/21 07/08/24 History Levothyroxine Sodium [Synthroid] 25 mcg PO DAILY@0803/08/21 07/08/24 History Sennosides [Senna] 8.6 mg PO HS PRN 03/08/21 07/08/24 History bisacodyL [Dulcolax] 10 mg RECTAL DAILY PRN 03/08/21 07/08/24 History Pantoprazole [Protonix] 40 mg PO DAILY@79905/04/21 07/08/24 History Acetaminophen Tab [Tylenol] 650 mg PO BID@08,199906/25/24 07/08/24 History Acetaminophen [Tylenol] 650 mg PO Q6H PRN 06/25/24 07/08/24 History Cholecalciferol [Vitamin D3 (25 25 mcg PO DAILY@79906/25/2425 History Mcg = 1000 Iu)] Ensure Enlive 120 ml PO BID@0800,1200 06/25/24 07/08/24 History Loperamide HCl [Loperamide] 2 mg PO Q6H PRN 06/25/24 07/08/24 History Magnesium Hydroxide [Milk of 7,200 mg PO DIRECTED PRN 06/25/24 07/08/24 History Magnesia Concentrate] Metoprolol Succinate (ER) [Toprol 25 mg PO DAILY@0800 06/25/24 07/08/24 History XL] Na Phos,M-B/Na Phos,Di-Ba [Fleet 133 ml RECTAL DAILY PRN 06/25/24 07/08/24 History Adult] Refresh Celluvisc Ophthalmic Gel 1% 1 drop LEFT EYE TID@0800,1200,1700 06/25/24 07/08/24 History Retaine Pm Opthalmic Ointment 1 applic LEFT EYE HS@2100 06/25/24 07/08/24 History Vit C/E/Zn/Coppr/Lutein/Zeaxan 1 cap PO BID@0800,1700 06/25/24 07/08/24 History [Preservision Areds 2 Softgel] guaiFENesin SYRUP 100MG/5ML 200 mg PO Q4H PRN 06/25/24 07/08/24 History [Robitussin] Magic Cup 1 dose PO DAILY@1200 07/08/24 07/08/24 History Megestrol [Megace] 400 mg PO DAILY@0600 07/08/24 07/08/24 History Allergies Allergy/AdvReac Type Severity Reaction Status Date / Time No Known Allergies Allergy Verified 07/08/24 18:55 Physical Exam Vitals: Vital Signs Temp Pulse Pulse Resp BP BP Pulse Ox 07/09/24 07:00 97.9 F 62 17 149/77 100 07/09/24 00:27 97.6 F 85 16 162/85 92 L 07/09/24 00:03 98.1 F 67 18 127/67 95 07/08/24 22:42 97.8 F 59 L 18 134/71 95 07/08/24 22:36 61 18 138/64 96 07/08/24 20:38 100 07/08/24 20:25 97.4 F L 62 17 115/49 04/02/25 20:05 97.2 F L 78 16 135/58 99 07/08/24 19:55 97.2 F L 75 16 123/64 99 07/08/24 18:25 73 20 119/83 100 07/08/24 17:08 98.2 F 65 16 137/59 95 Intake and Output 07/08/24 07/09/24 07/09/24 22:59 06:59 14:59 Intake Total 310 Balance 310 Intake: Blood Product 310 Rc As-1 Unit 310 [id number] Other: Voiding Method Bedpan Diaper # Voids 1 Weight 43.182 kg Head normocephalic Neck supple Lungs clear to auscultation bilaterally no wheezing or crackles Heart regular rate and rhythm S1-S2, no rub or gallop Abdomen is soft nontender nondistended positive bowel sounds no hepatosplenomegaly Extremities no edema Neuro alert and orientated to 3 Results CBC & Chem 7: 07/08/24 17:33 07/08/24 17:33 Labs: Abnormal Lab Results - Last 24 Hours (Table) 07/08/24 07/08/24 07/08/24 Range/Units 17:25 17:33 17:33 WBC 2.3 L (3.8-10.6) k/uL RBC 2.22 L (3.80-5.40) m/uL Hgb 7.1 L (11.4-16.0) gm/dL Hct 24.9 L (34.0-46.0) % MCV 111.9 H (80.0-100.0) fL MCHC 28.7 L (31.0-37.0) g/dL RDW 18.0 H (11.5-15.5) % Neutrophils # 1.1 L (1.3-7.7) k/uL Lymphocytes # 0.8 L (1.0-4.8) k/uL Macrocytosis Marked A BUN 24 H (7-17) mg/dL Glucose 120 H (74-99) mg/dL ALT 37 H (4-34) U/L Total Protein 6.1 L (6.3-8.2) g/dL Crossmatch See Detail Assessment and Plan Assessment: 1. Anemia hemoglobin 5.9 on admission 2. History of proximal A-fib. Patient Trinh currently on hold 3. History of dementia 4. History of essential hypertension 5. History of hyperlipidemia 6. History of hypothyroidism DVT prophylaxis SCDs. GI prophylax Protonix Surgical services consulted Status post 1 unit of PRBCs Repeat labs ordered Time with Patient: Greater than 30
[2024-07-09] MEDS: ARTIFICIAL TEARS-HYPROMELLOSE DROPS 15 ML BTL LEFT EYE SCH (10:26)
[2024-07-09 11:46] LABS: Anisocytosis Moderate; HCT 26.4 % (34.0-46.0); HGB 8.2 gm/dL (11.4-16.0); Hypochromasia Moderate; MCH 31.7 pg (25.0-35.0); MCHC 31.1 g/dL (31.0-37.0); Macrocytosis Marked; Mean Platelet Volume 8.6; Platelet Count 259 k/uL (150-450); Poikilocytosis Moderate; RBC 2.59 m/uL (3.80-5.40); RDW 21.1 % (11.5-15.5); WBC 2.3 k/uL (3.8-10.6)
[2024-07-09 11:57] LABS: MCV 101.9 fL (80.0-100.0)
[2024-07-09] MEDS ORDERED: NON FORMULARY DRUG (Magic Cup 1 EACH Ml) PO SCH (12:00)
[2024-07-09] MEDS ORDERED: NON FORMULARY DRUG (Ensure Enlive 120 ML) PO SCH (12:00)
[2024-07-09 12:06] LABS: Glucose,Whole Blood 80 mg/dL (70-110)
[2024-07-09 14:35] VITALS: BMI 16.3
--- NOTE | 2024-07-09 15:06 | P.GSCN ---
History of Present Illness Consult date: 07/09/24 History of present illness: CHIEF COMPLAINT: Anemia HISTORY OF PRESENT ILLNESS: This is a 89-year-old female with known dementia and bedbound. She is a resident at [facility]. She was brought into the ER due to a low hemoglobin on lab work. Hemoglobin 5.9. She was transfused with 1 unit of blood. Repeat hemoglobin was 7.1. Per nursing staff and patient she h as had no blood in her stools or melanotic. Denies any abdominal pain denies any nausea or vomiting. She had been on Xarelto for her A-fib. Xarelto is now on hold. She has had anemia requiring other hospitalizations for her anemia. She was hospitalized in June for anemia and no endoscopies were completed at that time. Hematology consult was recommended. Patient with history of pyloric stenosis and status post distal antrectomy with loop gastro-jejunostomy in 2021. Patient reports having EGD and colonoscopy in the past does not remember the dates. PAST MEDICAL HISTORY: Cancer, CVA/TIA, Diabetes Mellitus, Eye Disorder, GERD/Reflux, Hyperlipidemia, Hypertension, Osteoarthritis (OA), Thyroid Disorder, anxiety and depression PAST SURGICAL HISTORY: Hysterectomy, antrectomy with loop gastro-jejunostomy 2021 MEDICATIONS: See below ALLERGIES: See below SOCIAL HISTORY: No illicit drug use. REVIEW OF SYSTEMS: CONSTITUTIONAL: Denies fever or chills. HEENT: Denies blurred vision, vision changes, or eye pain. Denies hemoptysis CARDIOVASCULAR: Denies chest pain or pressure. RESPIRATORY: No shortness of breath. GASTROINTESTINAL: See HPI for pertinent findings HEMATOLOGIC: Denies bleeding disorders. GENITOURINARY: Denies any blood in urine or increased urinary frequency. SKIN: Denies pruitis. Denies rash. PHYSICAL EXAM: VITAL SIGNS: Reviewed GENERAL: Well-developed in no acute distress. HEENT: No sclera icterus. Extraocular movements grossly intact. Moist buccal mucosa. Head is atraumatic, normocephalic. No nasal drainage. ABDOMEN: Soft. Obese. Nondistended. Tenderness with palpation to right lower quadrant. NEUROLOGIC: Alert and oriented. Cranial nerves II through XII grossly intact. LABORATORY DATA: WBC 2.3 Hgb 5.9 up to 7.1 platelets 285 Sodium 139 potassium is 4.2 creatinine 0.54 lactic acid 1.7 IMAGING: ASSESSMENT: 1. Anemia with no active signs of GI bleed 2. Bicytopenia with low WBC and Hgb 3. History of pyloric stenosis status post distal antrectomy with loop gastrojejunostomy 4. A-fib on Xarelto at home PLAN: -Patient scheduled for EGD on 07/13/[address] Leos -Agree with hematology consult -Hold Xarelto -Check stool for occult blood -Repeat hemoglobin today -Continue to monitor for any signs or symptoms of bleeding -Continue to monitor hemoglobin Physician Spa Supervisor note has been reviewed by physician. Signing provider agrees with the documented findings, assessment, and plan of care. Past Medical History Past Medical History: Cancer, CVA/TIA, Diabetes Mellitus, Eye Disorder, GERD/Reflux, Hyperlipidemia, Hypertension, Osteoarthritis (OA), Thyroid Disorder Additional Past Medical History / Comment(s): HX: DM, NO RX SINCE WGT LOSS. SCOLIOSIS, BACK PAIN. SKIN CA, MULT. CVA, SL generalized weakness residual, TIA 04/2013 (pt/francisco j think she has a couple). Irregular heart beat OCC, Bradycardia at times, MINOR HEART MURMUR. GLAUCOMA. LT HIP FX 10/2017, HAS IRRITATING HARDWARE NOW. History of Any Multi-Drug Resistant Organisms: None Reported Past Surgical History: Hysterectomy Additional Past Surgical History / Comment(s): Colonoscopies w/ polypectomy-be nign. MAIRA CATARACTS. Epidural INJ Lumbar Spine, LAST 10/07/17. 10/22/17 ORIF LT HIP. Past Anesthesia/Blood Transfusion Reactions: No Reported Reaction Past Psychological History: Anxiety, Depression Additional Psychological History / Comment(s): Pt from [facility] Smoking Status: Never smoker Past Alcohol Use History: None Reported Past Drug Use History: None Reported - Past Family History Son(s) Family Medical History: Deep Vein Thrombosis (DVT) Father Family Medical History: Coronary Artery Disease (CAD), Myocardial Infarction ([place]) Additional Family Medical History / Comment(s): Father of [place]-pt unsure what age,. Mother Family Medical History: CVA/TIA Medications and Allergies Home Medications Medication Instructions Recorded Confirmed Type Aspirin EC [Ecotrin Low Dose] 81 mg PO DAILY@0800 12/23/15 07/08/24 History rOPINIRole HCL [Requip] 3 mg PO HS@2100 12/23/15 07/08/24 History timoloL maleate [Timolol Maleate] 1 drop BOTH EYES DAILY@0812/23/15 07/08/24 History Donepezil HCl [Aricept] 5 mg PO HS@209910/15/17 07/08/24 History Ferrous Sulfate [Iron (65 MG 325 mg PO DAILY@0812/25/17 07/08/24 History Elemental)] Latanoprost Ophth [Xalatan 0.005%] 1 drop BOTH EYES HS@209912/25/17 07/08/24 History Potassium Chloride ER [K-Dur 10] 10 meq PO DAILY@17012/25/17 07/08/24 History lisinopriL [Prinivil] 5 mg PO DAILY@79912/30/17 07/08/24 History Rivaroxaban [Xarelto] 10 mg PO DAILY@0802/14/21 07/08/24 History Rosuvastatin Calcium [Crestor] 5 mg PO HS@209902/14/21 07/08/24 History Levothyroxine Sodium [Synthroid] 25 mcg PO DAILY@0803/08/21 07/08/24 History Sennosides [Senna] 8.6 mg PO HS PRN 03/08/21 07/08/24 History bisacodyL [Dulcolax] 10 mg RECTAL DAILY PRN 03/08/21 07/08/24 History Pantoprazole [Protonix] 40 mg PO DAILY@0805/04/21 07/08/24 History Acetaminophen Tab [Tylenol] 650 mg PO BID@0800,199906/25/24 07/08/24 History Acetaminophen [Tylenol] 650 mg PO Q6H PRN 06/25/24 07/08/24 History Cholecalciferol [Vitamin D3 (25 25 mcg PO DAILY@0806/25/24 07/08/24 History Mcg = 1000 Iu)] Ensure Enlive 120 ml PO BID@0800,1200 06/25/24 07/08/24 History Loperamide HCl [Loperamide] 2 mg PO Q6H PRN 06/25/24 07/08/24 History Magnesium Hydroxide [Milk of 7,200 mg PO DIRECTED PRN 06/25/24 07/08/24 History Magnesia Concentrate] Metoprolol Succinate (ER) [Toprol 25 mg PO DAILY@0800 03/20/25 04/02/25 History XL] Na Phos,M-B/Na Phos,Di-Ba [Fleet 133 ml RECTAL DAILY PRN 06/25/24 07/08/24 History Adult] Refresh Celluvisc Ophthalmic Gel 1% 1 drop LEFT EYE TID@0800,1200,1700 06/25/24 07/08/24 History Retaine Pm Opthalmic Ointment 1 applic LEFT EYE HS@2100 06/25/24 07/08/24 History Vit C/E/Zn/Coppr/Lutein/Zeaxan 1 cap PO BID@0800,1700 06/25/24 07/08/24 History [Preservision Areds 2 Softgel] guaiFENesin SYRUP 100MG/5ML 200 mg PO Q4H PRN 06/25/24 07/08/24 History [Robitussin] Magic Cup 1 dose PO DAILY@1200 07/08/24 07/08/24 History Megestrol [Megace] 400 mg PO DAILY@0600 07/08/24 07/08/24 History Allergies Allergy/AdvReac Type Severity Reaction Status Date / Time No Known Allergies Allergy Verified 07/08/24 18:55 Surgical - Exam Vital Signs Temp Pulse Resp BP Pulse Ox 98.2 F 65 16 137/59 95 07/08/24 17:08 07/08/24 17:08 07/08/24 17:08 07/08/24 17:08 07/08/24 17:08 Results - Labs 07/09/24 11:26 07/08/24 17:33 Abnormal Lab Results - Last 24 Hours (Table) 07/08/24 07/08/24 07/08/24 Range/Units 17:25 17:33 17:33 WBC 2.3 L (3.8-10.6) k/uL RBC 2.22 L (3.80-5.40) m/uL Hgb 7.1 L (11.4-16.0) gm/dL Hct 24.9 L (34.0-46.0) % MCV 111.9 H (80.0-100.0) fL MCHC 28.7 L (31.0-37.0) g/dL RDW 18.0 H (11.5-15.5) % Neutrophils # 1.1 L (1.3-7.7) k/uL Lymphocytes # 0.8 L (1.0-4.8) k/uL Macrocytosis Marked A BUN 24 H (7-17) mg/dL Glucose 120 H (74-99) mg/dL ALT 37 H (4-34) U/L Total Protein 6.1 L (6.3-8.2) g/dL Crossmatch See Detail Diabetes panel 07/08/24 Range/Units 17:33 Sodium 139 (137-145) mmol/L Potassium 4.2 (3.5-5.1) mmol/L Chloride 107 (98-107) mmol/L Carbon Dioxide 22 (22-30) mmol/L BUN 24 H (7-17) mg/dL Creatinine 0.54 (0.52-1.04) mg/dL Glucose 120 H (74-99) mg/dL Calcium 9.1 (8.4-10.2) mg/dL AST 35 (14-36) U/L ALT 37 H (4-34) U/L Alkaline Phosphatase 69 (38-126) U/L Total Protein 6.1 L (6.3-8.2) g/dL Albumin 3.7 (3.5-5.0) g/dL Calcium panel 07/08/24 Range/Units 17:33 Calcium 9.1 (8.4-10.2) mg/dL Albumin 3.7 (3.5-5.0) g/dL Pituitary panel 07/08/24 Range/Units 17:33 Sodium 139 (137-145) mmol/L Potassium 4.2 (3.5-5.1) mmol/L Chloride 107 (98-107) mmol/L Carbon Dioxide 22 (22-30) mmol/L BUN 24 H (7-17) mg/dL Creatinine 0.54 (0.52-1.04) mg/dL Glucose 120 H (74-99) mg/dL Calcium 9.1 (8.4-10.2) mg/dL Adrenal panel 07/08/24 Range/Units 17:33 Sodium 139 (137-145) mmol/L Potassium 4.2 (3.5-5.1) mmol/L Chloride 107 (98-107) mmol/L Carbon Dioxide 22 (22-30) mmol/L BUN 24 H (7-17) mg/dL Creatinine 0.54 (0.52-1.04) mg/dL Glucose 120 H (74-99) mg/dL Calcium 9.1 (8.4-10.2) mg/dL Total Bilirubin 0.3 (0.2-1.3) mg/dL AST 35 (14-36) U/L ALT 37 H (4-34) U/L Alkaline Phosphatase 69 (38-126) U/L Total Protein 6.1 L (6.3-8.2) g/dL Albumin 3.7 (3.5-5.0) g/dL
[2024-07-09 17:22] LABS: Glucose,Whole Blood 84 mg/dL (70-110)
[2024-07-09] MEDS: POTASSIUM CHLORIDE ER 10 MEQ TAB.ER.PRT PO SCH (17:32)
[2024-07-09] MEDS: VIT A,C & E-LUTEIN-MINERALS 1 EACH TAB PO SCH (17:32)
--- NOTE | 2024-07-09 18:26 | P.CONS ---
History of Present Illness - Reason for Consult Consult date: 07/09/24 anemia Requesting physician: Melissa Leiva - Chief Complaint low hgb - History of Present Illness /Patient is an 89-year-old female who we were consulted for persistent anemia. Patient was sent to the ER by her ECF for hemoglobin noted at 5.9. Patient was asymptomatic at that time. Upon admit hemoglobin noted at 7.1, MCV 111.9, MCHC 28.7,. With marked hypochromasia. Patient was subsequently transfused 1 unit PRBCs. Repeat hemoglobin today 8.2. WBC 2.3, platelets 259,000. ANC 1.1, /absolute lymphocyte count 0.8. Bilirubin 0.3, AST 35, ALT 37, ALP 69. Upon trending labs patient has been noted to have hemoglobin in the 7-8 range since December 2023, prior to that in the 11-12 range. Anemia has been noted since at least 2013. Patient is anticoagulated with Xarelto and aspirin. Of note patient was admitted on 06/27/24 for anemia, nutritional studies at that time revealed no nutritional deficiencies, with iron saturation 12.5%, ferritin 300, vitamin B12 392, folate 24.6. 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 Per family patient has had poor oral intake and has been losing weight. Denies any known rectal bleeding or melena. Review of Systems 10 point ROS is negative except as stated in the HPI Past Medical History Past Medical History: Cancer, CVA/TIA, Diabetes Mellitus, Eye Disorder, GERD/ Reflux, Hyperlipidemia, Hypertension, Osteoarthritis (OA), Thyroid Disorder Additional Past Medical History / Comment(s): HX: DM, NO RX SINCE WGT LOSS. SCOLIOSIS, BACK PAIN. SKIN CA, MULT. CVA, SL generalized weakness residual, TIA 04/2013 (pt/francisco j think she has a couple). Irregular heart beat OCC, Bradycardia at times, MINOR HEART MURMUR. GLAUCOMA. LT HIP FX 10/2017, HAS IRRITATING HARDWARE NOW. History of Any Multi-Drug Resistant Organisms: None Reported Past Surgical History: Hysterectomy Additional Past Surgical History / Comment(s): Colonoscopies w/ polypectomy- benign. MAIRA CATARACTS. Epidural INJ Lumbar Spine, LAST 10/07/17. 10/22/17 ORIF LT HIP. Past Anesthesia/Blood Transfusion Reactions: No Reported Reaction Past Psychological History: Anxiety, Depression Additional Psychological History / Comment(s): Pt from [place] Smoking Status: Never smoker Past Alcohol Use History: None Reported Past Drug Use History: None Reported - Past Family History Son(s) Family Medical History: Deep Vein Thrombosis (DVT) Father Family Medical History: Coronary Artery Disease (CAD), Myocardial Infarction ([place]) Additional Family Medical History / Comment(s): Father of [place]-pt unsure what age,. Mother Family Medical History: CVA/TIA Medications and Allergies Home Medications Medication Instructions Recorded Confirmed Type Aspirin EC [Ecotrin Low Dose] 81 mg PO DAILY@79912/23/15 07/08/24 History rOPINIRole HCL [Requip] 3 mg PO HS@209912/23/15 07/08/24 History timoloL maleate [Timolol Maleate] 1 drop BOTH EYES DAILY@79912/23/15 07/08/24 History Donepezil HCl [Aricept] 5 mg PO HS@209910/15/17 07/08/24 History Ferrous Sulfate [Iron (65 MG 325 mg PO DAILY@79912/25/17 07/08/24 History Elemental)] Latanoprost Ophth [Xalatan 0.005%] 1 drop BOTH EYES HS@209912/25/17 07/08/24 History Potassium Chloride ER [K-Dur 10] 10 meq PO DAILY@169912/25/17 07/08/24 History lisinopriL [Prinivil] 5 mg PO DAILY@79912/30/17 07/08/24 History Rivaroxaban [Xarelto] 10 mg PO DAILY@79902/14/21 07/08/24 History Rosuvastatin Calcium [Crestor] 5 mg PO HS@209902/14/21 07/08/24 History Levothyroxine Sodium [Synthroid] 25 mcg PO DAILY@79903/08/21 07/08/24 History Sennosides [Senna] 8.6 mg PO HS PRN 03/08/21 07/08/24 History bisacodyL [Dulcolax] 10 mg RECTAL DAILY PRN 03/08/21 07/08/24 History Pantoprazole [Protonix] 40 mg PO DAILY@79905/04/2107/08/25 History Acetaminophen Tab [Tylenol] 650 mg PO BID@0800,2000 06/25/24 07/08/24 History Acetaminophen [Tylenol] 650 mg PO Q6H PRN 06/25/24 07/08/24 History Cholecalciferol [Vitamin D3 (25 25 mcg PO DAILY@0800 06/25/24 07/08/24 History Mcg = 1000 Iu)] Ensure Enlive 120 ml PO BID@0800,1200 06/25/24 07/08/24 History Loperamide HCl [Loperamide] 2 mg PO Q6H PRN 06/25/24 07/08/24 History Magnesium Hydroxide [Milk of 7,200 mg PO DIRECTED PRN 06/25/24 07/08/24 History Magnesia Concentrate] Metoprolol Succinate (ER) [Toprol 25 mg PO DAILY@0800 06/25/24 07/08/24 History XL] Na Phos,M-B/Na Phos,Di-Ba [Fleet 133 ml RECTAL DAILY PRN 06/25/24 07/08/24 History Adult] Refresh Celluvisc Ophthalmic Gel 1% 1 drop LEFT EYE TID@0800,1200,1700 06/25/24 07/08/24 History Retaine Pm Opthalmic Ointment 1 applic LEFT EYE HS@2100 06/25/24 07/08/24 History Vit C/E/Zn/Coppr/Lutein/Zeaxan 1 cap PO BID@0800,1700 06/25/24 07/08/24 History [Preservision Areds 2 Softgel] guaiFENesin SYRUP 100MG/5ML 200 mg PO Q4H PRN 06/25/24 07/08/24 History [Robitussin] Magic Cup 1 dose PO DAILY@1200 07/08/24 07/08/24 History Megestrol [Megace] 400 mg PO DAILY@0600 07/08/24 07/08/24 History Allergies Allergy/AdvReac Type Severity Reaction Status Date / Time No Known Allergies Allergy Verified 07/08/24 18:55 Physical Exam Vitals: Vital Signs Temp Pulse Pulse Resp BP BP Pulse Ox 07/09/24 14:49 98.2 F 78 16 121/73 98 07/09/24 07:00 97.9 F 62 17 149/77 100 07/09/24 00:27 97.6 F 85 16 162/85 92 L 07/09/24 00:03 98.1 F 67 18 127/67 95 07/08/24 22:42 97.8 F 59 L 18 134/71 95 07/08/24 22:36 61 18 138/64 96 07/08/24 20:38 100 07/08/24 20:25 97.4 F L 62 17 115/49 07/08/24 20:05 97.2 F L 78 16 135/58 99 07/08/24 19:55 97.2 F L 75 16 123/64 99 07/08/24 18:25 73 20 119/83 100 07/08/24 17:08 98.2 F 65 16 137/59 95 Intake and Output 07/09/24 07/09/24 07/09/24 06:59 14:59 22:59 Intake Total 236 Balance 236 Intake: Oral 236 Other: Voiding Method Bedpan Diaper # Voids 1 3 Weight 43.182 kg - Constitutional General appearance: average body habitus, no acute distress - EENT Eyes: anicteric sclerae, EOMI ENT: hearing grossly normal - Respiratory Respiratory: bilateral: CTA - Cardiovascular Rhythm: regular - Gastrointestinal General gastrointestinal: soft, no tenderness - Integumentary Integumentary: no cyanotic, pale - Musculoskeletal Musculoskeletal: generalized weakness Results CBC & Chem 7: 07/09/24 11:26 07/08/24 17:33 Labs: Abnormal Lab Results - Last 24 Hours (Table) 07/08/24 07/08/24 07/08/24 Range/Units 17:25 17:33 17:33 WBC 2.3 L (3.8-10.6) k/uL RBC 2.22 L (3.80-5.40) m/uL Hgb 7.1 L (11.4-16.0) gm/dL Hct 24.9 L (34.0-46.0) % MCV 111.9 H (80.0-100.0) fL MCHC 28.7 L (31.0-37.0) g/dL RDW 18.0 H (11.5-15.5) % Neutrophils # 1.1 L (1.3-7.7) k/uL Lymphocytes # 0.8 L (1.0-4.8) k/uL Macrocytosis Marked A BUN 24 H (7-17) mg/dL Glucose 120 H (74-99) mg/dL ALT 37 H (4-34) U/L Total Protein 6.1 L (6.3-8.2) g/dL Crossmatch See Detail 07/09/24 Range/Units 11:26 WBC 2.3 L (3.8-10.6) k/uL RBC 2.59 L (3.80-5.40) m/uL Hgb 8.2 L (11.4-16.0) gm/dL Hct 26.4 L (34.0-46.0) % MCV 101.9 H D (80.0-100.0) fL MCHC (31.0-37.0) g/dL RDW 21.1 H (11.5-15.5) % Neutrophils # (1.3-7.7) k/uL Lymphocytes # (1.0-4.8) k/uL Macrocytosis Marked A BUN (7-17) mg/dL Glucose (74-99) mg/dL ALT (4-34) U/L Total Protein (6.3-8.2) g/dL Crossmatch Assessment and Plan (1) Anemia Current Visit: Yes Status: Acute Priority: High Code(s): D64.9 - ANEMIA, UNSPECIFIED SNOMED Code(s): 396275996 Plan: Macrocytic anemia: Presented to the ER from [facility] for low hgb, that was noted at 5.9. Upon trending labs patient has been noted to have hemoglobin in the 7-8 range since December 2023, prior to that in the 11-12 range. Anemia has been noted since at least 2013. Patient is anticoagulated with Xarelto and aspirin. Of note patient was admitted on 06/27/24 for anemia, nutritional studies at that time revealed no nutritional deficiencies, with iron saturation 12.5%, ferritin 300, vitamin B12 392, folate 24.6. 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 Per family patient has had poor oral intake and has been losing weight. Denies any known rectal bleeding or melena. Leukopenia, with WBC in the 2 range noted since 10/2023. -Upon admit hemoglobin noted at 7.1, MCV 111.9, MCHC 28.7. With marked hypochromasia. Patient was subsequently transfused 1 unit PRBCs. Repeat hemoglobin today 8.2. WBC 2.3, platelets 259,000. ANC 1.1, absolute lymphocyte count 0.8. -Concern for underlying bone marrow process. Will obtain pancytopenia and hemolysis workup -Continue to monitor CBC. Transfuse for hgb < 7 or if symptomatic Results and POC discussed with pt and family. All questions and concerns were addressed
[2024-07-09 18:47] LABS: Reticulocyte % 2.88 % (0.10-1.80)
[2024-07-09] MEDS ORDERED: ACETAMINOPHEN TAB 325 MG TAB PO SCH (20:00)
[2024-07-09 20:13] LABS: Glucose,Whole Blood 107 mg/dL (70-110)
[2024-07-09] MEDS: LATANOPROST 0.005% OPHTH DROPS 2.5 ML BTL BOTH EYES SCH (20:46)
[2024-07-09] MEDS: ARTIFICIAL TEARS OINTMENT 3.5 GM TUBE LEFT EYE SCH (20:46)
[2024-07-09] MEDS: ATORVASTATIN 10 MG TAB PO SCH (20:46)
[2024-07-09] MEDS: DONEPEZIL 5 MG TAB PO SCH (20:46)
[2024-07-09 21:19] LABS: % Iron Saturation 11.55 (12.00-45.00)
[2024-07-09 21:36] LABS: Protein, Total 5.7 g/dL (6.2-8.2)
[2024-07-09 21:40] LABS: Immunoglobulin M 53.1 mg/dL (40.0-280.0)
[2024-07-10 05:30] LABS: Glucose,Whole Blood 91 mg/dL (70-110)
[2024-07-10] MEDS: MEGESTROL 400 MG/10 ML CUP PO SCH (05:48)
[2024-07-10] MEDS ORDERED: ZINC OXIDE PASTE (Z-GUARD) 1 APPLIC TOPICAL PRN (08:33)
[2024-07-10 08:44] LABS: ALT 24 U/L (8-44); AST 23 U/L (13-35); Albumin 3.5 g/dL (3.8-4.9); Albumin/Globulin Ratio 1.75 Ratio (1.60-3.17); Alkaline Phosphatase 74 U/L (41-126); Blood Urea Nitrogen 17.6 mg/dL (9.0-27.0); Calcium 9.1 mg/dL (8.7-10.3); Carbon Dioxide 21.4 mmol/L (21.6-31.8); Chloride 109 mmol/L (96-109); Glucose 90 mg/dL (70-110); Potassium 4.5 mmol/L (3.5-5.5); Sodium 141 mmol/L (135-145); Total Bilirubin 0.5 mg/dL (0.3-1.2); Total Protein 5.5 g/dL (6.2-8.2)
[2024-07-10] MEDS: LEVOTHYROXINE 25 MCG TAB PO SCH (08:52)
[2024-07-10] MEDS: FERROUS SULFATE 325 MG TAB PO SCH (08:52)
[2024-07-10] MEDS: lisinopriL 5 MG TAB PO SCH (08:52)
[2024-07-10] MEDS: PANTOPRAZOLE 40 MG TABLET PO SCH (08:52)
[2024-07-10] MEDS: TIMOLOL 0.25% OPHTH DROPS 5 ML BTL BOTH EYES SCH (08:53)
[2024-07-10] MEDS: CHOLECALCIFEROL 25 MCG (1000 IU) TABLET PO SCH (08:53)
[2024-07-10] MEDS: METOPROLOL SUCCINATE (ER) 25 MG TAB.ER.24H PO SCH (08:58)
--- NOTE | 2024-07-10 09:20 | P.PN ---
Subjective Progress Note Date: 07/10/24 Prerna Hyde is an 89-year-old female patient who presented to the ER with concerns of anemia patient is a long-term resident at [facility] and was recently admitted for similar anemia at the time patient was evaluated by GI services no endoscopic study completed at the time no signs of bleeding. Upon arrival patient's hemoglobin was 5.9. Patient did receive 1 unit of PRBCs repeat hemoglobin 7.1. Patient has a past medical history of CVA and A-fib in which she is maintained on Xarelto., Diabetes mellitus, GERD, hyperlipidemia, hypertension tension and dementia. At this time patient denies chest pain or shortness of breath. Patient denies nausea vomiting or diarrhea. Patient denies any urinary burning or frequency. Current vital signs temp 97.9, heart 62, respiratory rate 17, blood pressure 149/77 with a pulse ox of 100% on room air. Surgical services will be consulted. Patient denies chest pain or shortness of breath. Patient denies nausea vomiting or diarrhea. Patient denies any urinary burning or frequency On 07/10/2024 patient was seen and examined on the medical floor she is alert and oriented x 2 in no apparent distress she has very low oral intake she is denying any pain or discomfort at this time she was evaluated by general surgery and plan is to proceed with EGD on Saturday patient was also evaluated by hematology anemia labs were ordered, awaiting for results. Vital exam reveals a temperature of 98.7 pulse 89 respiration 16 blood pressure 108/66 pulse ox 98% o n room air BUN 17.6 creatinine 0.4 CBC is still pending Objective - Vital Signs Vital signs: Vital Signs Temp 98.7 F 07/10/24 07:00 Pulse 89 07/10/24 07:00 Resp 16 07/10/24 07:00 BP 108/66 07/10/24 07:00 Pulse Ox 98 07/10/24 07:00 FiO2 Intake & Output 07/09/24 07/10/24 07/10/24 18:59 06:59 18:59 Intake Total 236 Balance 236 Weight 43.182 kg Intake: Oral 236 Other: # Voids 3 4 - Exam In general patient is alert and oriented x 3 in no distress HEENT head normocephalic and atraumatic Neck is supple no JVD no goiter no lymphadenopathy no carotid bruit Chest examination is clear to auscultation no crackles no wheezing Cardiac exam reveals regular heart sounds S1 and S2 no gallops no murmurs Abdomen is soft nontender no organomegaly with normal bowel sounds Extremity exam reveals no edema no cyanosis or clubbing Neurological examination reveals no gross focal deficits - Labs CBC & Chem 7: 07/09/24 11:26 07/10/24 05:30 Labs: Abnormal Lab Results - Last 24 Hours (Table) 07/08/24 07/08/24 07/09/24 Range/Units 17:33 17:33 11:26 WBC 2.3 L (3.8-10.6) k/uL RBC 2.59 L (3.80-5.40) m/uL Hgb 8.2 L (11.4-16.0) gm/dL Hct 26.4 L (34.0-46.0) % MCV 101.9 H D (80.0-100.0) fL RDW 21.1 H (11.5-15.5) % Macrocytosis Marked A Retic Count (0.10-1.80) % Carbon Dioxide (21.6-31.8) mmol/L Creatinine (0.6-1.5) mg/dL BUN/Creatinine Ratio (12.00-20.00) Ratio Iron 29 L (50-170) UG/DL % Saturation 11.55 L (12.00-45.00) Transferrin 179.0 L (204.0-354.0) mg/dL Ferritin 560.0 H (10.0-291.0) ng/mL Total Protein (6.2-8.2) g/dL Total Protein (PEP) 5.7 L (6.2-8.2) g/dL Albumin (3.8-4.9) g/dL 07/09/24 07/10/24 Range/Units 11:26 05:30 WBC (3.8-10.6) k/uL RBC (3.80-5.40) m/uL Hgb (11.4-16.0) gm/dL Hct (34.0-46.0) % MCV (80.0-100.0) fL RDW (11.5-15.5) % Macrocytosis Retic Count 2.88 H (0.10-1.80) % Carbon Dioxide 21.4 L (21.6-31.8) mmol/L Creatinine 0.4 L (0.6-1.5) mg/dL BUN/Creatinine Ratio 44.00 H (12.00-20.00) Ratio Iron (50-170) UG/DL % Saturation (12.00-45.00) Transferrin (204.0-354.0) mg/dL Ferritin (10.0-291.0) ng/mL Total Protein 5.5 L (6.2-8.2) g/dL Total Protein (PEP) (6.2-8.2) g/dL Albumin 3.5 L (3.8-4.9) g/dL Assessment and Plan Assessment: 1. Anemia hemoglobin 5.9 on admission 2. History of proximal A-fib. Patient Xareloniel currently on hold 3. History of dementia 4. History of essential hypertension 5. History of hyperlipidemia 6. History of hypothyroidism 7. Previous history of pyloric stenosis with history of distal antrectomy with group gastrojejunostomy DVT prophylaxis SCDs. GI prophylax Protonix Surgical services consulted Status post 1 unit of PRBCs Repeat labs ordered
[2024-07-10 09:55] LABS: Free Kappa Lt Chain Qnt, Serum 2.96 mg/dL (0.33-1.94); Free Lambda Lt Chain Qnt, Seru 2.31 mg/dL (0.57-2.63)
[2024-07-10 10:46] LABS: Basophils # (A) 0.03 X 10*3/uL (0.00-0.10); Basophils % (A) 1.4 %; Elliptocytes 2+ (None Seen); Eosinophils # (A) 0.07 X 10*3/uL (0.04-0.35); Eosinophils % (A) 3.2 %; HCT 28.6 % (37.2-46.3); HGB 8.8 g/dL (12.0-15.0); Immature Grans, Automated 0 %; Lymphocytes # (A) 0.85 X 10*3/uL (0.90-5.00); Lymphocytes % (A) 38.8 %; MCH 31.7 pg (27.0-32.0); MCHC 30.8 g/dL (32.0-37.0); MCV 102.9 FL (80.0-97.0); Mean Platelet Volume 9.9 FL (9.5-12.2); Monocytes # (A) 0.44 X 10*3/uL (0.20-1.00); Monocytes % (A) 20.1 %; NRBC Per 100 WBC 0 X 10*3/uL (0.00-0.01); Neutrophils % (A) 36.5 %; Platelet Count 244 X 10*3/uL (140-440); RBC 2.78 X 10*6/uL (4.10-5.20); RDW 22.5 % (11.5-14.5); WBC 2.19 X 10*3/uL (4.50-10.00)
[2024-07-10 12:21] LABS: Glucose,Whole Blood 118 mg/dL (70-110)
--- NOTE | 2024-07-10 12:41 | P.PN ---
Subjective Progress Note Date: 07/10/24 SURGICAL PROGRESS NOTE CHIEF COMPLAINT: Anemia HISTORY OF PRESENT ILLNESS: Surgical service following in regards to patient's anemia. Per nursing staff there has been no bowel movement. She has had no b leeding from the rectum. Hemoglobin did go up from 7.1-8.2. PHYSICAL EXAM: VITAL SIGNS: Reviewed. GENERAL: Well-developed in no acute distress. ABDOMEN: Soft. Nondistended. Nontender. NEUROLOGIC: Awake and alert ASSESSMENT: 1. Anemia with no active signs of GI bleed 2. Bicytopenia with low WBC and Hgb 3. History of pyloric stenosis status post distal antrectomy with loop gastrojejunostomy 4. A-fib on Xarelto at home PLAN: - Patient scheduled for EGD on 07/13/[address] Leos - Continue to hold Xarelto - Continue to monitor hemoglobin - Patient undergoing hematology workup Physician Product Scientist note has been reviewed by physician. Signing provider agrees with the documented findings, assessment, and plan of care. Objective - Vital Signs Vital signs: Vital Signs Temp 98.7 F 07/10/24 07:00 Pulse 89 07/10/24 07:00 Resp 16 07/10/24 08:53 BP 108/66 07/10/24 07:00 Pulse Ox 98 07/10/24 07:00 FiO2 Intake & Output 07/09/24 07/10/24 07/10/24 18:59 06:59 18:59 Intake Total 236 100 Balance 236 100 Weight 43.182 kg Intake: Oral 236 100 Other: Voiding Method Bedpan Diaper # Voids 3 4 1 - Labs CBC & Chem 7: 07/10/24 05:43 07/10/24 05:30 Labs: Abnormal Lab Results - Last 24 Hours (Table) 07/08/24 07/08/24 07/09/24 Range/Units 17:33 17:33 11:26 WBC (4.50-10.00) X 10*3/uL RBC (4.10-5.20) X 10*6/uL Hgb (12.0-15.0) g/dL Hct (37.2-46.3) % MCV (80.0-97.0) FL MCHC (32.0-37.0) g/dL RDW (11.5-14.5) % Neutrophils # (1.80-7.70) X 10*3/uL Lymphocytes # (0.90-5.00) X 10*3/uL Elliptocytes (None Seen) Retic Count 2.88 H (0.10-1.80) % Carbon Dioxide (21.6-31.8) mmol/L Creatinine (0.6-1.5) mg/dL BUN/Creatinine Ratio (12.00-20.00) Ratio POC Glucose (mg/dL) (70-110) mg/dL Iron 29 L (50-170) UG/DL % Saturation 11.55 L (12.00-45.00) Transferrin 179.0 L (204.0-354.0) mg/dL Ferritin 560.0 H (10.0-291.0) ng/mL Total Protein (6.2-8.2) g/dL Total Protein (PEP) 5.7 L (6.2-8.2) g/dL Albumin (3.8-4.9) g/dL Free [place] LC, Quant 2.96 H (0.33-1.94) mg/dL 07/10/24 07/10/24 07/10/24 Range/Units 05:30 05:43 12:19 WBC 2.19 L (4.50-10.00) X 10*3/uL RBC 2.78 L (4.10-5.20) X 10*6/uL Hgb 8.8 L (12.0-15.0) g/dL Hct 28.6 L (37.2-46.3) % MCV 102.9 H (80.0-97.0) FL MCHC 30.8 L (32.0-37.0) g/dL RDW 22.5 H (11.5-14.5) % Neutrophils # 0.80 L (1.80-7.70) X 10*3/uL Lymphocytes # 0.85 L (0.90-5.00) X 10*3/uL Elliptocytes 2+ A (None Seen) Retic Count (0.10-1.80) % Carbon Dioxide 21.4 L (21.6-31.8) mmol/L Creatinine 0.4 L (0.6-1.5) mg/dL BUN/Creatinine Ratio 44.00 H (12.00-20.00) Ratio POC Glucose (mg/dL) 118 H (70-110) mg/dL Iron (50-170) UG/DL % Saturation (12.00-45.00) Transferrin (204.0-354.0) mg/dL Ferritin (10.0-291.0) ng/mL Total Protein 5.5 L (6.2-8.2) g/dL Total Protein (PEP) (6.2-8.2) g/dL Albumin 3.5 L (3.8-4.9) g/dL Free [place] LC, Quant (0.33-1.94) mg/dL
--- NOTE | 2024-07-10 13:11 | CDI ---
Documentation Clarification Form Date: 07/10/2024 12:56 PM From: Joanie Giraldo Phone: [phone] Admit Date: 07/10/2024 07:58:00 AM Patient Name: Prerna Hyde Visit Number: [id number] Discharge Date: ATTENTION: The Clinical Documentation Specialists (CDI) and [facility] Coding Staff appreciate your assistance in clarifying documentation. Please respond to the clarification below the line at the bottom and electronically sign. The CDI & [facility] Coding staff will review the response and follow-up if needed. Please note: Queries are made part of the Legal Health Record. If you have any questions, please contact the author of this message via ITS. Doctor: Melissa Leiva Per family patient has had poor oral intake and has been losing weight, Oncology note, 07/09. Additional clarification is requested. History/Risk Factors: 89 year old female presents to the ED with concerns of anemia from ECF. Medical history: Iron deficiency anemia, DM, HTN, Skin CA, TIA, HLD, GERD. Clinical Indicators: Patients weight is : 43.182kg Patients height is: 5ft 4in Calculated BMI is 16.3kg 07/09, Heme Onc Consult: Per family patient has had poor oral intake and has been losing weight. Dietary Consult, 07/09: Physical findings, underweight, weight change related to decreased intake over two weeks. Unintended weight loss. Poor PO Intake related to diminished appetite. As evidenced by: 13% weight loss x 2 weeks. Related poor PO intake secondary to diminished appetite. Protein needs: 52-65, Kcal energy needs: 1128-9224; Treatments: Nutritional Consult above, Glucerna TID, Monitor po and supplement intake. Megace po Nutritional Education Dietary Consult, Above Calorie Count Please clarify, is there is an additional diagnosis that is clinically appropriate for this patient? [ ] Malnutrition, (further specify severity and type) moderate to severe protein calorie malnutrition [ ] No additional diagnosis/not clinically significant [ ] Cachexia [ ] Underweight [ ] Other, please specify [ ] Unable to determine Reference: Using the ASPEN Guidelines, Undernutrition (Malnutrition) is characterized by at least two of the following six findings. The severity can be determined based on the criteria listed below. Malnutrition Characteristics for Moderate and Severe Malnutrition Type of Malnutrition Acute Illness or Injury Chronic Illness Degree of Malnutrition Non-severe (moderate) Malnutrition Severe Malnutrition Non-severe (moderate) Malnutrition Severe Malnutrition Energy Intake <75% for >7 days = 50% for = 5 days <75% for = 1 month =75% for = 1 month Weight Loss 1-2% in one week, 5% in 1 month, 7.5% in 3 months 2% in one week, >5% in 1 month, >7.5% in 3 months 5% in one month, 7.5% in 3 months, 10% in 6 months, 20% in 1 year >5% in one month, >7.5% in 3 months, >10% in 6 months, >20% in 1 year Body Fat Wasting Mild Moderate Mild Severe Muscle Wasting Mild Moderate Mild Severe Presence of Edema Mild Moderate to Severe Mild 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 Consensus statement: Academy of Nutrition and Dietetics and [place] Society for Parenteral and Enteral Nutrition: characteristics recommended for the identification and documentation of adult malnutrition (undernutrition).TONY J Parenter Enteral Nutr. 2012;36(3):275-283. (Template Last Revised: May 2020) MTDD
[2024-07-10 17:19] LABS: Glucose,Whole Blood 94 mg/dL (70-110)
--- NOTE | 2024-07-10 18:48 | P.PN ---
Subjective Progress Note Date: 07/10/24 No acute events overnight. Hgb improved today to 8.8. WBC 2.1, plt 244,000. Objective - Vital Signs Vital signs: Vital Signs Temp 99 F 07/10/24 13:28 Pulse 65 07/10/24 13:28 Resp 16 07/10/24 13:28 BP 113/70 07/10/24 13:28 Pulse Ox 99 07/10/24 13:28 FiO2 Intake & Output 07/09/24 07/10/24 07/10/24 18:59 06:59 18:59 Intake Total 236 100 Balance 236 100 Weight 43.182 kg Intake: Oral 236 100 Other: Voiding Method Bedpan Diaper # Voids 3 4 1 - Constitutional General appearance: Present: no acute distress - EENT Eyes: Present: anicteric sclerae, EOMI ENT: Present: hearing grossly normal - Respiratory Details: breathing is even and unlabored - Cardiovascular Details: skin warm and dry - Gastrointestinal General gastrointestinal: Present: soft. Absent: tenderness - Integumentary Integumentary: Absent: cyanotic - Labs CBC & Chem 7: 07/10/24 05:43 07/10/24 05:30 Labs: Abnormal Lab Results - Last 24 Hours (Table) 07/08/24 07/08/24 07/09/24 Range/Units 17:33 17:33 11:26 WBC (4.50-10.00) X 10*3/uL RBC (4.10-5.20) X 10*6/uL Hgb (12.0-15.0) g/dL Hct (37.2-46.3) % MCV (80.0-97.0) FL MCHC (32.0-37.0) g/dL RDW (11.5-14.5) % Neutrophils # (1.80-7.70) X 10*3/uL Lymphocytes # (0.90-5.00) X 10*3/uL Elliptocytes (None Seen) Retic Count 2.88 H (0.10-1.80) % Carbon Dioxide (21.6-31.8) mmol/L Creatinine (0.6-1.5) mg/dL BUN/Creatinine Ratio (12.00-20.00) Ratio POC Glucose (mg/dL) (70-110) mg/dL Iron 29 L (50-170) UG/DL % Saturation 11.55 L (12.00-45.00) Transferrin 179.0 L (204.0-354.0) mg/dL Ferritin 560.0 H (10.0-291.0) ng/mL Total Protein (6.2-8.2) g/dL Total Protein (PEP) 5.7 L (6.2-8.2) g/dL Albumin (3.8-4.9) g/dL Free [place] LC, Quant 2.96 H (0.33-1.94) mg/dL 07/10/24 07/10/24 07/10/24 Range/Units 05:30 05:43 12:19 WBC 2.19 L (4.50-10.00) X 10*3/uL RBC 2.78 L (4.10-5.20) X 10*6/uL Hgb 8.8 L (12.0-15.0) g/dL Hct 28.6 L (37.2-46.3) % MCV 102.9 H (80.0-97.0) FL MCHC 30.8 L (32.0-37.0) g/dL RDW 22.5 H (11.5-14.5) % Neutrophils # 0.80 L (1.80-7.70) X 10*3/uL Lymphocytes # 0.85 L (0.90-5.00) X 10*3/uL Elliptocytes 2+ A (None Seen) Retic Count (0.10-1.80) % Carbon Dioxide 21.4 L (21.6-31.8) mmol/L Creatinine 0.4 L (0.6-1.5) mg/dL BUN/Creatinine Ratio 44.00 H (12.00-20.00) Ratio POC Glucose (mg/dL) 118 H (70-110) mg/dL Iron (50-170) UG/DL % Saturation (12.00-45.00) Transferrin (204.0-354.0) mg/dL Ferritin (10.0-291.0) ng/mL Total Protein 5.5 L (6.2-8.2) g/dL Total Protein (PEP) (6.2-8.2) g/dL Albumin 3.5 L (3.8-4.9) g/dL Free [place] LC, Quant (0.33-1.94) mg/dL Assessment and Plan (1) Anemia Current Visit: Yes Status: Acute Priority: High Code(s): D64.9 - ANEMIA, UNSPECIFIED SNOMED Code(s): 414454485 Plan: Macrocytic anemia: [facility]ed [facility] the [facility] for low hgb, that was noted at 5.9. Upon trending labs patient has been noted to have hemoglobin in the 7-8 range since December 2023, prior to that in the 11-12 range. Anemia has been noted since at least 2013. Patient is anticoagulated with Xarelto and aspirin. Of note patient was admitted on 06/27/24 for anemia, nutritional studies at that time revealed no nutritional deficiencies, with iron saturation 12.5%, ferritin 300, vitamin B12 392, folate 24.6. 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 Per family patient has had poor oral intake and has been losing weight. Denies any known rectal bleeding or melena. Leukopenia, with WBC in the 2 range noted since 10/2023. -Upon admit hemoglobin noted at 7.1, MCV 111.9, MCHC 28.7. With marked hypochromasia. Patient was subsequently transfused 1 unit PRBCs. Repeat hemoglobin 8.2. WBC 2.3, platelets 259,000. ANC 1.1, absolute lymphocyte count 0.8. -Concern for underlying myelodysplastic syndrome. Will obtain pancytopenia and hemolysis workup -Hemolysis workup negative. No nutritional deficiencies noted. K/L ratio normal at 1.28. SPEP and immunofixation pending -Continue to monitor CBC. Transfuse for hgb < 7 or if symptomatic Results and POC discussed with pt and family. All questions and concerns were addressed. Clinic f/u upon discharge will be scheduled to discuss remaining workup and possible BM biopsy
[2024-07-10 19:38] LABS: Glucose,Whole Blood 112 mg/dL (70-110)
[2024-07-10] MEDS: SENNOSIDES 8.6 MG TAB PO PRN (23:21)
[2024-07-11 06:01] LABS: Glucose,Whole Blood 89 mg/dL (70-110)
--- NOTE | 2024-07-11 08:54 | P.PN ---
Subjective Progress Note Date: 07/11/24 Prerna Hyde is an 89-year-old female patient who presented to the ER with concerns of anemia patient is a long-term resident at [facility] and was recently admitted for similar anemia at the time patient was evaluated by GI services no endoscopic study completed at the time no signs of bleeding. Upon arrival patient's hemoglobin was 5.9. Patient did receive 1 unit of PRBCs repeat hemoglobin 7.1. Patient has a past medical history of CVA and A-fib in which she is maintained on Xarelto., Diabetes mellitus, GERD, hyperlipidemia, hypertension tension and dementia. At this time patient denies chest pain or shortness of breath. Patient denies nausea vomiting or diarrhea. Patient denies any urinary burning or frequency. Current vital signs temp 97.9, heart 62, respiratory rate 17, blood pressure 149/77 with a pulse ox of 100% on room air. Surgical services will be consulted. Patient denies chest pain or shortness of breath. Patient denies nausea vomiting or diarrhea. Patient denies any urinary burning or frequency On 07/10/2024 patient was seen and examined on the medical floor she is alert and oriented x 2 in no apparent distress she has very low oral intake she is denying any pain or discomfort at this time she was evaluated by general surgery and plan is to proceed with EGD on Saturday patient was also evaluated by hematology anemia labs were ordered, awaiting for results. Vital exam reveals a temperature of 98.7 pulse 89 respiration 16 blood pressure 108/66 pulse ox 98% o n room air BUN 17.6 creatinine 0.4 CBC is still pending. On 07/11/2024 patient was seen and examined on the medical floor she is alert and oriented x 3 in no apparent distress there is no fever or chills no headache or dizziness no chest pain no shortness of breath no cough no nausea or vomiting no abdominal pain no diarrhea and no urinary symptoms. Blood pressure is on the low side will monitor closely. Patient is scheduled for EGD on Saturday. Objective - Vital Signs Vital signs: Vital Signs Temp 98.7 F 07/11/24 07:00 Pulse 73 07/11/24 07:00 Resp 15 07/11/24 07:00 BP 97/63 07/11/24 07:00 Pulse Ox 95 07/11/24 07:00 FiO2 Intake & Output 04/07/3107/11/24 07/11/24 18:59 06:59 18:59 Intake Total 100 Balance 100 Intake: Oral 100 Other: Voiding Method Bedpan Bedpan Diaper Diaper # Voids 2 2 - Exam In general patient is alert and oriented x 3 in no distress HEENT head normocephalic and atraumatic Neck is supple no JVD no goiter no lymphadenopathy no carotid bruit Chest examination is clear to auscultation no crackles no wheezing Cardiac exam reveals regular heart sounds S1 and S2 no gallops no murmurs Abdomen is soft nontender no organomegaly with normal bowel sounds Extremity exam reveals no edema no cyanosis or clubbing Neurological examination reveals no gross focal deficits - Labs CBC & Chem 7: 07/10/24 05:43 07/10/24 05:30 Labs: Abnormal Lab Results - Last 24 Hours (Table) 07/08/24 07/10/24 07/10/24 Range/Units 17:33 05:30 05:43 WBC 2.19 L (4.50-10.00) X 10*3/uL RBC 2.78 L (4.10-5.20) X 10*6/uL Hgb 8.8 L (12.0-15.0) g/dL Hct 28.6 L (37.2-46.3) % MCV 102.9 H (80.0-97.0) FL MCHC 30.8 L (32.0-37.0) g/dL RDW 22.5 H (11.5-14.5) % Neutrophils # 0.80 L (1.80-7.70) X 10*3/uL Lymphocytes # 0.85 L (0.90-5.00) X 10*3/uL Elliptocytes 2+ A (None Seen) Carbon Dioxide 21.4 L (21.6-31.8) mmol/L Creatinine 0.4 L (0.6-1.5) mg/dL BUN/Creatinine Ratio 44.00 H (12.00-20.00) Ratio POC Glucose (mg/dL) (70-110) mg/dL Total Protein 5.5 L (6.2-8.2) g/dL Albumin 3.5 L (3.8-4.9) g/dL Free [place] LC, Quant 2.96 H (0.33-1.94) mg/dL 07/10/24 07/10/24 Range/Units 12:19 19:35 WBC (4.50-10.00) X 10*3/uL RBC (4.10-5.20) X 10*6/uL Hgb (12.0-15.0) g/dL Hct (37.2-46.3) % MCV (80.0-97.0) FL MCHC (32.0-37.0) g/dL RDW (11.5-14.5) % Neutrophils # (1.80-7.70) X 10*3/uL Lymphocytes # (0.90-5.00) X 10*3/uL Elliptocytes (None Seen) Carbon Dioxide (21.6-31.8) mmol/L Creatinine (0.6-1.5) mg/dL BUN/Creatinine Ratio (12.00-20.00) Ratio POC Glucose (mg/dL) 118 H 112 H (70-110) mg/dL Total Protein (6.2-8.2) g/dL Albumin (3.8-4.9) g/dL Free [place] LC, Quant (0.33-1.94) mg/dL Assessment and Plan Assessment: 1. Anemia hemoglobin 5.9 on admission 2. History of proximal A-fib. Patient Trinh currently on hold 3. History of dementia 4. History of essential hypertension 5. History of hyperlipidemia 6. History of hypothyroidism 7. Previous history of pyloric stenosis with history of distal antrectomy with group gastrojejunostomy DVT prophylaxis SCDs. GI prophylax Protonix Surgical services consulted Status post 1 unit of PRBCs Repeat labs ordered
[2024-07-11 09:45] LABS: ALT 19 U/L (8-44); AST 17 U/L (13-35); Albumin 3.5 g/dL (3.8-4.9); Albumin/Globulin Ratio 2.06 Ratio (1.60-3.17); Alkaline Phosphatase 67 U/L (41-126); Blood Urea Nitrogen 17.9 mg/dL (9.0-27.0); Calcium 8.9 mg/dL (8.7-10.3); Carbon Dioxide 23.7 mmol/L (21.6-31.8); Chloride 108 mmol/L (96-109); Globulin 1.7 g/dL (1.6-3.3); Glucose 92 mg/dL (70-110); Potassium 4.6 mmol/L (3.5-5.5); Sodium 139 mmol/L (135-145); Total Bilirubin 0.4 mg/dL (0.3-1.2); Total Protein 5.2 g/dL (6.2-8.2)
[2024-07-11 09:49] LABS: Basophils # (A) 0.02 X 10*3/uL (0.00-0.10); Basophils % (A) 0.8 %; Eosinophils # (A) 0.11 X 10*3/uL (0.04-0.35); Eosinophils % (A) 4.5 %; HCT 28.2 % (37.2-46.3); HGB 8.6 g/dL (12.0-15.0); Immature Grans, Automated 0 %; Lymphocytes # (A) 0.94 X 10*3/uL (0.90-5.00); Lymphocytes % (A) 38.5 %; MCH 31.9 pg (27.0-32.0); MCHC 30.5 g/dL (32.0-37.0); MCV 104.4 FL (80.0-97.0); Mean Platelet Volume 9.7 FL (9.5-12.2); Monocytes # (A) 0.48 X 10*3/uL (0.20-1.00); Monocytes % (A) 19.7 %; NRBC Per 100 WBC 0 X 10*3/uL (0.00-0.01); Neutrophils # (A) 0.89 X 10*3/uL (1.80-7.70); Neutrophils % (A) 36.5 %; Platelet Count 239 X 10*3/uL (140-440); RDW 21.6 % (11.5-14.5); WBC 2.44 X 10*3/uL (4.50-10.00)
[2024-07-11 12:41] LABS: Glucose,Whole Blood 115 mg/dL (70-110)
--- NOTE | 2024-07-11 13:18 | P.PN ---
Subjective Progress Note Date: 07/11/24 Patient main stable. We plan for EGD on Saturday. Objective - Vital Signs Vital signs: Vital Signs Temp 98.7 F 07/11/24 07:00 Pulse 77 07/11/24 08:20 Resp 15 07/11/24 08:35 BP 108/65 07/11/24 08:20 Pulse Ox 95 07/11/24 07:00 FiO2 Intake & Output 07/10/24 07/11/24 07/11/24 18:59 06:59 18:59 Intake Total 100 236 Balance 100 236 Intake: Oral 100 236 Other: Voiding Method Bedpan Bedpan Bedpan Diaper Diaper Diaper # Voids 2 2 - Labs CBC & Chem 7: 07/11/24 04:48 07/11/24 04:48 Labs: Abnormal Lab Results - Last 24 Hours (Table) 07/10/24 07/11/24 07/11/24 Range/Units 19:35 04:48 04:48 WBC 2.44 L (4.50-10.00) X 10*3/uL RBC 2.70 L (4.10-5.20) X 10*6/uL Hgb 8.6 L (12.0-15.0) g/dL Hct 28.2 L (37.2-46.3) % MCV 104.4 H (80.0-97.0) FL MCHC 30.5 L (32.0-37.0) g/dL RDW 21.6 H (11.5-14.5) % Neutrophils # 0.89 L (1.80-7.70) X 10*3/uL Creatinine 0.5 L (0.6-1.5) mg/dL BUN/Creatinine Ratio 35.80 H (12.00-20.00) Ratio POC Glucose (mg/dL) 112 H (70-110) mg/dL Total Protein 5.2 L (6.2-8.2) g/dL Albumin 3.5 L (3.8-4.9) g/dL 07/11/24 Range/Units 12:40 WBC (4.50-10.00) X 10*3/uL RBC (4.10-5.20) X 10*6/uL Hgb (12.0-15.0) g/dL Hct (37.2-46.3) % MCV (80.0-97.0) FL MCHC (32.0-37.0) g/dL RDW (11.5-14.5) % Neutrophils # (1.80-7.70) X 10*3/uL Creatinine (0.6-1.5) mg/dL BUN/Creatinine Ratio (12.00-20.00) Ratio POC Glucose (mg/dL) 115 H (70-110) mg/dL Total Protein (6.2-8.2) g/dL Albumin (3.8-4.9) g/dL
[2024-07-11 17:35] LABS: Glucose,Whole Blood 137 mg/dL (70-110)
[2024-07-11 19:30] LABS: Glucose,Whole Blood 129 mg/dL (70-110)
[2024-07-12 05:32] LABS: Glucose,Whole Blood 99 mg/dL (70-110)
[2024-07-12 08:17] LABS: ALT 17 U/L (4-34); AST 20 U/L (14-36); African American GFR (CKD) >90 (>60 ml/min/1.73 sqM); Albumin 3.3 g/dL (3.5-5.0); Albumin/Globulin Ratio 1.5; Alkaline Phosphatase 64 U/L (38-126); Anion Gap 7 mmol/L; Blood Urea Nitrogen 28 mg/dL (7-17); Calcium 9.3 mg/dL (8.4-10.2); Carbon Dioxide 22 mmol/L (22-30); Chloride 106 mmol/L (98-107); Globulin 2.2 g/dL; Glucose 86 mg/dL (74-99); Non-African American GFR(CKD) 83 (>60 ml/min/1.73 sqM); Potassium 4.7 mmol/L (3.5-5.1); Sodium 135 mmol/L (137-145); Total Bilirubin 0.5 mg/dL (0.2-1.3); Total Protein 5.5 g/dL (6.3-8.2)
[2024-07-12 08:33] LABS: Anisocytosis Slight; HCT 27.5 % (34.0-46.0); HGB 8.6 gm/dL (11.4-16.0); Hypochromasia Marked; MCH 32.1 pg (25.0-35.0); MCHC 31.2 g/dL (31.0-37.0); Macrocytosis Moderate; Mean Platelet Volume 8.3; Platelet Count 252 k/uL (150-450); RBC 2.67 m/uL (3.80-5.40); RDW 19.3 % (11.5-15.5); WBC 2.4 k/uL (3.8-10.6)
--- NOTE | 2024-07-12 10:02 | P.PN ---
Subjective Progress Note Date: 07/12/24 Prerna Hyde is an 89-year-old female patient who presented to the ER with concerns of anemia patient is a long-term resident at [facility] and was recently admitted for similar anemia at the time patient was evaluated by GI services no endoscopic study completed at the time no signs of bleeding. Upon arrival patient's hemoglobin was 5.9. Patient did receive 1 unit of PRBCs repeat hemoglobin 7.1. Patient has a past medical history of CVA and A-fib in which she is maintained on Xarelto., Diabetes mellitus, GERD, hyperlipidemia, hypertension tension and dementia. At this time patient denies chest pain or shortness of breath. Patient denies nausea vomiting or diarrhea. Patient denies any urinary burning or frequency. Current vital signs temp 97.9, heart 62, respiratory rate 17, blood pressure 149/77 with a pulse ox of 100% on room air. Surgical services will be consulted. Patient denies chest pain or shortness of breath. Patient denies nausea vomiting or diarrhea. Patient denies any urinary burning or frequency On 07/10/2024 patient was seen and examined on the medical floor she is alert and oriented x 2 in no apparent distress she has very low oral intake she is denying any pain or discomfort at this time she was evaluated by general surgery and plan is to proceed with EGD on Saturday patient was also evaluated by hematology anemia labs were ordered, awaiting for results. Vital exam reveals a temperature of 98.7 pulse 89 respiration 16 blood pressure 108/66 pulse ox 98% o n room air BUN 17.6 creatinine 0.4 CBC is still pending. On 07/11/2024 patient was seen and examined on the medical floor she is alert and oriented x 3 in no apparent distress there is no fever or chills no headache or dizziness no chest pain no shortness of breath no cough no nausea or vomiting no abdominal pain no diarrhea and no urinary symptoms. Blood pressure is on the low side will monitor closely. Patient is scheduled for EGD on Saturday. On 07/12/2024 patient is alert and oriented x 3. Patient is resting comfortably in bed.. Plans for EGD tomorrow. Hemoglobin remained stable at 8.6. Patient denies chest pain or shortness of breath. Patient denies nausea vomiting or diarrhea. Patient denies any urinary burning or frequency. Current vital signs temp 97.9, heart 64, respiratory rate 16, blood pressure 105/78 with a pulse ox of 96% on room air Objective - Vital Signs Vital signs: Vital Signs Temp 97.9 F 07/12/24 07:00 Pulse 41 L 07/12/24 07:00 Resp 15 07/12/24 07:00 BP 106/66 07/12/24 07:00 Pulse Ox 93 L 07/12/24 07:00 FiO2 Intake & Output 07/11/24 07/12/24 07/12/24 18:59 06:59 18:59 Intake Total 336 118 Balance 336 118 Intake: Oral 336 118 Other: Voiding Method Bedpan Bedpan Diaper Diaper # Voids 2 - Exam In general patient is alert and oriented x 3 in no distress HEENT head normocephalic and atraumatic Neck is supple no JVD no goiter no lymphadenopathy no carotid bruit Chest examination is clear to auscultation no crackles no wheezing Cardiac exam reveals regular heart sounds S1 and S2 no gallops no murmurs Abdomen is soft nontender no organomegaly with normal bowel sounds Extremity exam reveals no edema no cyanosis or clubbing Neurological examination reveals no gross focal deficits - Labs CBC & Chem 7: 07/12/24 06:33 07/12/24 06:33 Labs: Abnormal Lab Results - Last 24 Hours (Table) 07/11/24 07/11/24 07/11/24 Range/Units 12:40 17:33 19:29 WBC (3.8-10.6) k/uL RBC (3.80-5.40) m/uL Hgb (11.4-16.0) gm/dL Hct (34.0-46.0) % MCV (80.0-100.0) fL RDW (11.5-15.5) % Sodium (137-145) mmol/L BUN (7-17) mg/dL POC Glucose (mg/dL) 115 H 137 H 129 H (70-110) mg/dL Total Protein (6.3-8.2) g/dL Albumin (3.5-5.0) g/dL Stool Occult Blood (Negative) 07/12/24 07/12/24 07/12/24 Range/Units 06:27 06:33 06:33 WBC 2.4 L (3.8-10.6) k/uL RBC 2.67 L (3.80-5.40) m/uL Hgb 8.6 L (11.4-16.0) gm/dL Hct 27.5 L (34.0-46.0) % MCV 103.0 H (80.0-100.0) fL RDW 19.3 H (11.5-15.5) % Sodium 135 L (137-145) mmol/L BUN 28 H (7-17) mg/dL POC Glucose (mg/dL) (70-110) mg/dL Total Protein 5.5 L (6.3-8.2) g/dL Albumin 3.3 L (3.5-5.0) g/dL Stool Occult Blood Positive H (Negative) Assessment and Plan Assessment: 1. Anemia hemoglobin 5.9 on admission 2. History of proximal A-fib. Patient Trinh currently on hold 3. History of dementia 4. History of essential hypertension 5. History of hyperlipidemia 6. History of hypothyroidism 7. Previous history of pyloric stenosis with history of distal antrectomy with group gastrojejunostomy DVT prophylaxis SCDs. GI prophylax Protonix Surgical services consulted Status post 1 unit of PRBCs Repeat labs ordered EGD 07/13/2024
[2024-07-12 10:31] LABS: Band Neutrophils % 1 %; Eosinophils # (M) 0.05 k/uL (0-0.7); Lymphocytes # (M) 0.72 k/uL (1.0-4.8); Monocytes # (M) 0.29 k/uL (0-1.0); Neutrophils % (M) 55 %; Nucleated Red Blood Cells 0 /100 WBC (0-0); Total Cells Counted 100
[2024-07-12 12:11] LABS: Glucose,Whole Blood 107 mg/dL (70-110)
--- NOTE | 2024-07-12 12:32 | P.PN ---
Subjective Progress Note Date: 07/12/24 Patient miguel stable. We plan on EGD in the a.m. On exam vital signs were stable. Abdomen soft. Objective - Vital Signs Vital signs: Vital Signs Temp 97.9 F 07/12/24 07:00 Pulse 71 07/12/24 10:13 Resp 15 07/12/24 09:11 BP 106/66 07/12/24 07:00 Pulse Ox 93 L 07/12/24 07:00 FiO2 Intake & Output 07/11/24 07/12/24 07/12/24 18:59 06:59 18:59 Intake Total 336 118 Balance 336 118 Intake: Oral 336 118 Other: Voiding Method Bedpan Bedpan Bedpan Diaper Diaper Diaper # Voids 2 - Labs CBC & Chem 7: 07/12/24 06:33 07/12/24 06:33 Labs: Abnormal Lab Results - Last 24 Hours (Table) 07/11/24 07/11/24 07/11/24 Range/Units 12:40 17:33 19:29 WBC (3.8-10.6) k/uL RBC (3.80-5.40) m/uL Hgb (11.4-16.0) gm/dL Hct (34.0-46.0) % MCV (80.0-100.0) fL RDW (11.5-15.5) % Lymphocytes # (Manual) (1.0-4.8) k/uL Sodium (137-145) mmol/L BUN (7-17) mg/dL POC Glucose (mg/dL) 115 H 137 H 129 H (70-110) mg/dL Total Protein (6.3-8.2) g/dL Albumin (3.5-5.0) g/dL Stool Occult Blood (Negative) 07/12/24 07/12/24 07/12/24 Range/Units 06:27 06:33 06:33 WBC 2.4 L (3.8-10.6) k/uL RBC 2.67 L (3.80-5.40) m/uL Hgb 8.6 L (11.4-16.0) gm/dL Hct 27.5 L (34.0-46.0) % MCV 103.0 H (80.0-100.0) fL RDW 19.3 H (11.5-15.5) % Lymphocytes # (Manual) 0.72 L (1.0-4.8) k/uL Sodium 135 L (137-145) mmol/L BUN 28 H (7-17) mg/dL POC Glucose (mg/dL) (70-110) mg/dL Total Protein 5.5 L (6.3-8.2) g/dL Albumin 3.3 L (3.5-5.0) g/dL Stool Occult Blood Positive H (Negative)
[2024-07-12 17:20] LABS: Glucose,Whole Blood 118 mg/dL (70-110)
[2024-07-12 19:40] LABS: Glucose,Whole Blood 104 mg/dL (70-110)
[2024-07-13 05:30] LABS: Methylmalonic Acid 0.19 umol/L (<0.40)
[2024-07-13 05:42] LABS: Glucose,Whole Blood 102 mg/dL (70-110)
[2024-07-13 08:22] LABS: Basophils # (A) 0.02 X 10*3/uL (0.00-0.10); Basophils % (A) 0.9 %; Eosinophils # (A) 0.05 X 10*3/uL (0.04-0.35); Eosinophils % (A) 2.2 %; HCT 26.2 % (37.2-46.3); HGB 8.1 g/dL (12.0-15.0); Lymphocytes # (A) 0.81 X 10*3/uL (0.90-5.00); Lymphocytes % (A) 35.5 %; MCH 32.5 pg (27.0-32.0); MCHC 30.9 g/dL (32.0-37.0); MCV 105.2 FL (80.0-97.0); Mean Platelet Volume 9.8 FL (9.5-12.2); Monocytes # (A) 0.46 X 10*3/uL (0.20-1.00); Monocytes % (A) 20.2 %; NRBC Per 100 WBC 0 X 10*3/uL (0.00-0.01); Neutrophils # (A) 0.93 X 10*3/uL (1.80-7.70); Neutrophils % (A) 40.8 %; Platelet Count 222 X 10*3/uL (140-440); RBC 2.49 X 10*6/uL (4.10-5.20); RDW 20.1 % (11.5-14.5); WBC 2.28 X 10*3/uL (4.50-10.00)
[2024-07-13 08:28] LABS: ALT 16 U/L (8-44); AST 16 U/L (13-35); Albumin 3.6 g/dL (3.8-4.9); Alkaline Phosphatase 61 U/L (41-126); Carbon Dioxide 22.9 mmol/L (21.6-31.8); Chloride 104 mmol/L (96-109); Globulin 1.8 g/dL (1.6-3.3); Glucose 88 mg/dL (70-110); Potassium 4.8 mmol/L (3.5-5.5); Sodium 136 mmol/L (135-145); Total Bilirubin 0.3 mg/dL (0.3-1.2); Total Protein 5.4 g/dL (6.2-8.2)
[2024-07-13 12:23] LABS: Glucose,Whole Blood 90 mg/dL (70-110)
--- NOTE | 2024-07-13 12:55 | CDI ---
Documentation Clarification Form Date: 07/10/2024 12:56:00 PM From: Joanie Giraldo RN CCDS Phone: [phone] Admit Date: 07/10/2024 07:58:00 AM Patient Name: Prerna Hyde Visit Number: [id number] Discharge Date: ATTENTION: The Clinical Documentation Specialists (CDI) and [facility] Coding Staff appreciate your assistance in clarifying documentation. Please respond to the clarification below the line at the bottom and electronically sign. The CDI & [facility] Coding staff will review the response and follow-up if needed. Please note: Queries are made part of the Legal Health Record. If you have any questions, please contact the author of this message via ITS. Doctor: Melissa Leiva Moderate to Severe Calorie Malnutrition is documented 07/10, Query response. Additional clarification regarding the severity of malnutrition is requested. History/Risk Factors: 89 year old female presents to the ED with concerns of anemia from ECF. Medical history: Iron deficiency anemia, DM, HTN, Skin CA, TIA, HLD, GERD Clinical Indicators: Patients weight is : 43.182kg Patients height is: 5ft 4in Calculated BMI is 16.3kg Dietary Consult, 07/09: Physical findings, underweight, weight change related to decreased intake over two weeks. Unintended weight loss. Poor PO Intake related to diminished appetite. As evidenced by: 13% weight loss x 2 weeks. Related poor PO intake secondary to diminished appetite. Protein needs: 52-65, Kcal energy needs: [id number]; 07/09, Heme Onc Consult: Per family patient has had poor oral intake and has been losing weight. Treatment: Nutritional Consult above, Monitor po and supplement intake. Megace po,Nutritional Education Supplements: Glucerna TID Please clarify the severity of malnutrition, if known: [ ] Moderate Protein-Calorie Malnutrition [ x ] Severe Protein-Calorie Malnutrition [ ] Other condition, please specify [ ] Unable to Determine (Template Last Revised: October 2022) MTDD
[2024-07-13] MEDS ORDERED: PROPOFOL 10 MG/ML 20 ML VIAL IV ONE (13:43)
[2024-07-13] MEDS ORDERED: LIDOCAINE 1% INJ 10MG/ML (20 ML MDV) ONE (13:43)
[2024-07-13] MEDS: SODIUM CHLORIDE 0.9% 500 ML 500 ML IV ONE ×2 (13:45→14:03)
--- NOTE | 2024-07-13 14:11 | P.OP ---
Date of Procedure: 07/13/24 Preoperative Diagnosis: Anemia Postoperative Diagnosis: Esophagitis Procedure(s) Performed: EGD Anesthesia: MAC Surgeon: Zoran Leos Pathology: other (Esophagus) Condition: stable Disposition: PACU Description of Procedure: The patient was placed on the endoscopy table in the lateral position. She re ceived IV sedation. The Gastroflux oropharynx passed in the esophagus and stomach. Sco the scope was advanced to the stomach. Patient a previous distal gastrectomy. The gastrojejunostomy was visualized. This was no evidence of inflammation or erosion. The scope was then retroflexed remainder the stomach. Normal. There was a small hiatal hernia. The GE junction was at 38 cm. The distal esophagus appeared mildly Flaim. A biopsy was performed the proximal esophagus appeared normal. Scope withdrawn for the patient.
[2024-07-13 17:01] LABS: Glucose,Whole Blood 95 mg/dL (70-110)
--- NOTE | 2024-07-13 17:52 | P.PN ---
Subjective Progress Note Date: 07/13/24 Prerna Hyde is an 89-year-old female patient who presented to the ER with concerns of anemia patient is a long-term resident at [facility] and was recently admitted for similar anemia at the time patient was evaluated by GI services no endoscopic study completed at the time no signs of bleeding. Upon arrival patient's hemoglobin was 5.9. Patient did receive 1 unit of PRBCs repeat hemoglobin 7.1. Patient has a past medical history of CVA and A-fib in which she is maintained on Xarelto., Diabetes mellitus, GERD, hyperlipidemia, hypertension tension and dementia. At this time patient denies chest pain or shortness of breath. Patient denies nausea vomiting or diarrhea. Patient denies any urinary burning or frequency. Current vital signs temp 97.9, heart 62, respiratory rate 17, blood pressure 149/77 with a pulse ox of 100% on room air. Surgical services will be consulted. Patient denies chest pain or shortness of breath. Patient denies nausea vomiting or diarrhea. Patient denies any urinary burning or frequency On 07/10/2024 patient was seen and examined on the medical floor she is alert and oriented x 2 in no apparent distress she has very low oral intake she is denying any pain or discomfort at this time she was evaluated by general surgery and plan is to proceed with EGD on Saturday patient was also evaluated by hematology anemia labs were ordered, awaiting for results. Vital exam reveals a temperature of 98.7 pulse 89 respiration 16 blood pressure 108/66 pulse ox 98% o n room air BUN 17.6 creatinine 0.4 CBC is still pending. On 07/11/2024 patient was seen and examined on the medical floor she is alert and oriented x 3 in no apparent distress there is no fever or chills no headache or dizziness no chest pain no shortness of breath no cough no nausea or vomiting no abdominal pain no diarrhea and no urinary symptoms. Blood pressure is on the low side will monitor closely. Patient is scheduled for EGD on Saturday. On 07/12/2024 patient is alert and oriented x 3. Patient is resting comfortably in bed.. Plans for EGD tomorrow. Hemoglobin remained stable at 8.6. Patient denies chest pain or shortness of breath. Patient denies nausea vomiting or diarrhea. Patient denies any urinary burning or frequency. Current vital signs temp 97.9, heart 64, respiratory rate 16, blood pressure 105/78 with a pulse ox of 96% on room air On 07/13/2024 patient was seen and examined on the medical floor she is alert and oriented x 3 in no apparent distress there is no fever or chills no headache or dizziness no chest pain no shortness of breath no cough no nausea or vomiting no abdominal pain no diarrhea and no urinary symptoms. Blood pressure is on the low side will monitor closely. Patient is scheduled for EGD today Objective - Vital Signs Vital signs: Vital Signs Temp 98.6 F 07/13/24 07:00 Pulse 70 07/13/24 07:00 Resp 16 07/13/24 07:00 BP 113/73 07/13/24 07:00 Pulse Ox 100 07/13/24 07:00 FiO2 Intake & Output 07/12/24 07/13/24 07/13/24 18:59 06:59 18:59 Intake Total 356 Balance 356 Intake: Oral 356 Other: Voiding Method Bedpan Diaper # Voids 3 - Exam In general patient is alert and oriented x 3 in no distress HEENT head normocephalic and atraumatic Neck is supple no JVD no goiter no lymphadenopathy no carotid bruit Chest examination is clear to auscultation no crackles no wheezing Cardiac exam reveals regular heart sounds S1 and S2 no gallops no murmurs Abdomen is soft nontender no organomegaly with normal bowel sounds Extremity exam reveals no edema no cyanosis or clubbing Neurological examination reveals no gross focal deficits - Labs CBC & Chem 7: 07/13/24 05:29 07/13/24 05:29 Labs: Abnormal Lab Results - Last 24 Hours (Table) 07/12/24 07/12/24 07/13/24 Range/Units 06:33 17:19 05:29 WBC 2.28 L (4.50-10.00) X 10*3/uL RBC 2.49 L (4.10-5.20) X 10*6/uL Hgb 8.1 L (12.0-15.0) g/dL Hct 26.2 L (37.2-46.3) % MCV 105.2 H (80.0-97.0) FL MCH 32.5 H (27.0-32.0) pg MCHC 30.9 L (32.0-37.0) g/dL RDW 20.1 H (11.5-14.5) % Neutrophils # 0.93 L (1.80-7.70) X 10*3/uL Lymphocytes # 0.81 L (0.90-5.00) X 10*3/uL Lymphocytes # (Manual) 0.72 L (1.0-4.8) k/uL Creatinine (0.6-1.5) mg/dL BUN/Creatinine Ratio (12.00-20.00) Ratio POC Glucose (mg/dL) 118 H (70-110) mg/dL Total Protein (6.2-8.2) g/dL Albumin (3.8-4.9) g/dL 07/13/24 Range/Units 05:29 WBC (4.50-10.00) X 10*3/uL RBC (4.10-5.20) X 10*6/uL Hgb (12.0-15.0) g/dL Hct (37.2-46.3) % MCV (80.0-97.0) FL MCH (27.0-32.0) pg MCHC (32.0-37.0) g/dL RDW (11.5-14.5) % Neutrophils # (1.80-7.70) X 10*3/uL Lymphocytes # (0.90-5.00) X 10*3/uL Lymphocytes # (Manual) (1.0-4.8) k/uL Creatinine 0.5 L (0.6-1.5) mg/dL BUN/Creatinine Ratio 46.00 H (12.00-20.00) Ratio POC Glucose (mg/dL) (70-110) mg/dL Total Protein 5.4 L (6.2-8.2) g/dL Albumin 3.6 L (3.8-4.9) g/dL Assessment and Plan Assessment: 1. Anemia hemoglobin 5.9 on admission 2. History of proximal A-fib. Patient Xareloniel currently on hold 3. History of dementia 4. History of essential hypertension 5. History of hyperlipidemia 6. History of hypothyroidism 7. Previous history of pyloric stenosis with history of distal antrectomy with group gastrojejunostomy DVT prophylaxis SCDs. GI prophylax Protonix Surgical services consulted Status post 1 unit of PRBCs Repeat labs ordered EGD 07/13/2024
[2024-07-13 19:09] LABS: Glucose,Whole Blood 151 mg/dL (70-110)
[2024-07-14 06:38] LABS: Glucose,Whole Blood 104 mg/dL (70-110)
[2024-07-14 07:19] LABS: Albumin 3.46 g/dL (3.80-4.90); Gamma Globulin 0.62 g/dL (0.70-1.50)
--- NOTE | 2024-07-14 09:32 | P.DS ---
Providers Date of admission: 07/10/24 07:58 Expected date of discharge: 07/14/24 Attending physician: Melissa Leiva Consults: 07/09/24 10:13 Consult Physician Routine Consulting Provider: Howard Johnson Consult Reason/Comments: Frequent Anemia Do you want consulting provider notified?: Yes 07/09/24 11:18 Consult Physician Routine Consulting Provider: Zoran Leos Consult Reason/Comments: anemia Do you want consulting provider notified?: Already Contacted Primary care physician: Melissa Leiva [place] [facility] Course: Discharge diagnosis 1. Anemia hemoglobin 5.9 on admission 2. History of proximal A-fib. Patient Xarelto currently on hold 3. History of dementia 4. History of essential hypertension 5. History of hyperlipidemia 6. History of hypothyroidism 7. Previous history of pyloric stenosis with history of distal antrectomy with group gastrojejunostomy Hospital course Prerna Hyde is an 89-year-old female patient who presented to the ER with concerns of anemia patient is a long-term resident at [facility] and was recently admitted for similar anemia at the time patient was evaluated by GI services no endoscopic study completed at the time no signs of bleeding. Upon arrival patient's hemoglobin was 5.9. Patient did receive 1 unit of PRBCs repeat hemoglobin 7.1. Patient has a past medical history of CVA and A-fib in which she is maintained on Xarelto., Diabetes mellitus, GERD, hyperlipidemia, hypertension tension and dementia. At this time patient denies chest pain or shortness of breath. Patient denies nausea vomiting or diarrhea. Patient denies any urinary burning or frequency. Current vital signs temp 97.9, heart 62, respiratory rate 17, blood pressure 149/77 with a pulse ox of 100% on room air. Surgical services will be consulted. Patient denies chest pain or shortness of breath. Patient denies nausea vomiting or diarrhea. Patient denies any urinary burning or frequency On 07/10/2024 patient was seen and examined on the medical floor she is alert and oriented x 2 in no apparent distress she has very low oral intake she is denying any pain or discomfort at this time she was evaluated by general surgery and plan is to proceed with EGD on Saturday patient was also evaluated by hematology anemia labs were ordered, awaiting for results. Vital exam reveals a temperature of 98.7 pulse 89 respiration 16 blood pressure 108/66 pulse ox 98% on room air BUN 17.6 creatinine 0.4 CBC is still pending. On 07/11/2024 patient was seen and examined on the medical floor she is alert and oriented x 3 in no apparent distress there is no fever or chills no headache or dizziness no chest pain no shortness of breath no cough no nausea or vomiting no abdominal pain no diarrhea and no urinary symptoms. Blood pressure is on the low side will monitor closely. Patient is scheduled for EGD on Saturday. On 07/12/2024 patient is alert and oriented x 3. Patient is resting comfortably in bed.. Plans for EGD tomorrow. Hemoglobin remained stable at 8.6. Patient denies chest pain or shortness of breath. Patient denies nausea vomiting or diarrhea. Patient denies any urinary burning or frequency. Current vital signs temp 97.9, heart 64, respiratory rate 16, blood pressure 105/78 with a pulse ox of 96% on room air On 07/13/2024 patient was seen and examined on the medical floor she is alert and oriented x 3 in no apparent distress there is no fever or chills no headache or dizziness no chest pain no shortness of breath no cough no nausea or vomiting no abdominal pain no diarrhea and no urinary symptoms. Blood pressure is on the low side will monitor closely. Patient is scheduled for EGD today On 07/14/2024 patient is alert and oriented x 3 resting comfortably in bed. Status post EGD. Showing esophagitis. Hemoglobin stable at 8.1. Patient will be DC'd back to ECF continue Protonix patient started back on her Xarelto. Will continue to monitor hemoglobin and ECF facility. Patient denies chest pain or shortness of breath. Patient denies nausea vomiting or diarrhea. Patient denies any urinary burning or frequency Patient Condition at Discharge: Stable Plan - Discharge Summary Discharge Rx Participant: Yes New Discharge Prescriptions: Continue timoloL maleate [Timolol Maleate] 1 drop BOTH EYES DAILY@0800 rOPINIRole HCL [Requip] 3 mg PO HS@2100 Donepezil HCl [Aricept] 5 mg PO HS@2100 Ferrous Sulfate [Iron (65 MG Elemental)] 325 mg PO DAILY@0800 Latanoprost Ophth [Xalatan 0.005%] 1 drop BOTH EYES HS@2100 Potassium Chloride ER [K-Dur 10] 10 meq PO DAILY@1700 lisinopriL [Prinivil] 5 mg PO DAILY@0800 Rosuvastatin Calcium [Crestor] 5 mg PO HS@2100 Sennosides [Senna] 8.6 mg PO HS PRN PRN Reason: Constipation Pantoprazole [Protonix] 40 mg PO DAILY@0800 Loperamide HCl [Loperamide] 2 mg PO Q6H PRN PRN Reason: Loose Stool Acetaminophen [Tylenol] 650 mg PO Q6H PRN PRN Reason: Fever And/ Or Pain Acetaminophen Tab [Tylenol] 650 mg PO BID@0800,2000 Cholecalciferol [Vitamin D3 (25 Mcg = 1000 Iu)] 25 mcg PO DAILY@0800 Retaine Pm Opthalmic Ointment 1 applic LEFT EYE HS@2100 Metoprolol Succinate (ER) [Toprol XL] 25 mg PO DAILY@0800 Rivaroxaban [Xarelto] 10 mg PO DAILY@0800 bisacodyL [Dulcolax] 10 mg RECTAL DAILY PRN PRN Reason: Constipation Levothyroxine Sodium [Synthroid] 25 mcg PO DAILY@0800 guaiFENesin SYRUP 100MG/5ML [Robitussin] 200 mg PO Q4H PRN PRN Reason: Cough Na Phos,M-B/Na Phos,Di-Ba [Fleet Adult] 133 ml RECTAL DAILY PRN PRN Reason: Constipation Refresh Celluvisc Ophthalmic Gel 1% 1 drop LEFT EYE TID@0800,1200,1700 Vit C/E/Zn/Coppr/Lutein/Zeaxan [Preservision Areds 2 Softgel] 1 cap PO BID@0800,1700 Ensure Enlive 120 ml PO BID@0800,1200 Magnesium Hydroxide [Milk of Magnesia Concentrate] 7,200 mg PO DIRECTED PRN PRN Reason: 2 days no bm Magic Cup 1 dose PO DAILY@1200 Megestrol [Megace] 400 mg PO DAILY@0600 Discontinued Aspirin EC [Ecotrin Low Dose] 81 mg PO DAILY@0800 Discharge Medication List rOPINIRole HCL [Requip] 3 mg PO HS@209912/23/15 [History] timoloL maleate [Timolol Maleate] 1 drop BOTH EYES DAILY@0800 12/23/15 [History] Donepezil HCl [Aricept] 5 mg PO HS@2100 10/15/17 [History] Ferrous Sulfate [Iron (65 MG Elemental)] 325 mg PO DAILY@0812/25/17 [History] Latanoprost Ophth [Xalatan 0.005%] 1 drop BOTH EYES HS@209912/25/17 [History] Potassium Chloride ER [K-Dur 10] 10 meq PO DAILY@17012/25/17 [History] lisinopriL [Prinivil] 5 mg PO DAILY@0812/30/17 [History] Rivaroxaban [Xarelto] 10 mg PO DAILY@79902/14/21 [History] Rosuvastatin Calcium [Crestor] 5 mg PO HS@209902/14/21 [History] Levothyroxine Sodium [Synthroid] 25 mcg PO DAILY@0803/08/21 [History] Sennosides [Senna] 8.6 mg PO HS PRN 03/08/21 [History] bisacodyL [Dulcolax] 10 mg RECTAL DAILY PRN 03/08/21 [History] Pantoprazole [Protonix] 40 mg PO DAILY@0805/04/21 [History] Acetaminophen Tab [Tylenol] 650 mg PO BID@0800,2000 06/25/24 [History] Acetaminophen [Tylenol] 650 mg PO Q6H PRN 06/25/24 [History] Cholecalciferol [Vitamin D3 (25 Mcg = 1000 Iu)] 25 mcg PO DAILY@0806/25/24 [History] Ensure Enlive 120 ml PO BID@0800,1200 06/25/24 [History] Loperamide HCl [Loperamide] 2 mg PO Q6H PRN 06/25/24 [History] Magnesium Hydroxide [Milk of Magnesia Concentrate] 7,200 mg PO DIRECTED PRN 06/25/24 [History] Metoprolol Succinate (ER) [Toprol XL] 25 mg PO DAILY@0806/25/24 [History] Na Phos,M-B/Na Phos,Di-Ba [Fleet Adult] 133 ml RECTAL DAILY PRN 06/25/24 [History] Refresh Celluvisc Ophthalmic Gel 1% 1 drop LEFT EYE TID@0800,1200,1700 06/25/24 [History] Retaine Pm Opthalmic Ointment 1 applic LEFT EYE HS@209906/25/24 [History] Vit C/E/Zn/Coppr/Lutein/Zeaxan [Preservision Areds 2 Softgel] 1 cap PO BID@0800,1700 06/25/24 [History] guaiFENesin SYRUP 100MG/5ML [Robitussin] 200 mg PO Q4H PRN 06/25/24 [History] Magic Cup 1 dose PO DAILY@1200 07/08/24 [History] Megestrol [Megace] 400 mg PO DAILY@0600 07/08/24 [History] Follow up Appointment(s)/Referral(s): Melissa Leiva MD [Primary Care Provider] - 1-2 days Activity/Diet/Wound Care/Special Instructions: Activity as tolerated Diet heart healthy Discharge Disposition: TRANSFER TO SNF/ECF
[2024-07-14 09:43] LABS: Basophils # (A) 0.03 10*3/uL (0.00-0.10); Eosinophils # (A) 0.12 10*3/uL (0.04-0.35); Eosinophils % (A) 4.2 %; HCT 26.3 % (37.2-46.3); HGB 8.5 g/dL (12.0-15.0); Lymphocytes # (A) 1.06 10*3/uL (0.90-5.00); Lymphocytes % (A) 37.1 %; MCH 33.1 pg (27.0-32.0); MCHC 32.3 g/dL (32.0-37.0); MCV 102.3 fL (80.0-97.0); Mean Platelet Volume 9.2 fL (9.5-12.2); Monocytes # (A) 0.54 10*3/uL (0.20-1.00); Monocytes % (A) 18.9 %; Neutrophils # (A) 1.11 10*3/uL (1.80-7.70); Neutrophils % (A) 38.8 %; Platelet Count 261 10*3/uL (140-440); RBC 2.57 10*6/uL (4.10-5.20); RDW 19.8 % (11.5-14.5); WBC 2.86 10*3/uL (4.50-10.00)
[2024-07-14 10:03] LABS: ALT 27 U/L (4-34); AST 30 U/L (14-36); African American GFR (CKD) >90 (>60 ml/min/1.73 sqM); Albumin 3.3 g/dL (3.5-5.0); Albumin/Globulin Ratio 1.4; Alkaline Phosphatase 62 U/L (38-126); Anion Gap 4 mmol/L; Blood Urea Nitrogen 27 mg/dL (7-17); Calcium 9.1 mg/dL (8.4-10.2); Carbon Dioxide 24 mmol/L (22-30); Chloride 104 mmol/L (98-107); Globulin 2.3 g/dL; Glucose 160 mg/dL (74-99); Non-African American GFR(CKD) 79 (>60 ml/min/1.73 sqM); Sodium 132 mmol/L (137-145); Total Bilirubin 0.5 mg/dL (0.2-1.3); Total Protein 5.6 g/dL (6.3-8.2)
[2024-07-14 12:16] LABS: Glucose,Whole Blood 155 mg/dL (70-110)
--- NOTE | 2024-07-14 12:32 | P.PN ---
Subjective Progress Note Date: 07/14/24 SURGICAL PROGRESS NOTE CHIEF COMPLAINT: Anemia HISTORY OF PRESENT ILLNESS: Surgical service following in regards to patient's anemia. Per nursing staff no active bleeding noted. Hemoglobin is 8.5. Martina ent is status post EGD with biopsies. EGD had reported esophagitis. PHYSICAL EXAM: VITAL SIGNS: Reviewed. GENERAL: Well-developed in no acute distress. ABDOMEN: Soft. Nondistended. Nontender. NEUROLOGIC: Sleeping comfortably ASSESSMENT: 1. Anemia with no active signs of GI bleed 2. Bicytopenia with low WBC and Hgb 3. History of pyloric stenosis status post distal antrectomy with loop gastrojejunostomy 4. A-fib on Xarelto at home PLAN: -Patient scheduled for colonoscopy on with Dr. Leos -Patient will undergo a 2-day bowel prep with GoLytely -Start clear liquid diet today -Continue to hold Xarelto -Continue to monitor hemoglobin Physician Regenerator Operator note has been reviewed by physician. Signing provider agrees with the documented findings, assessment, and plan of care. Objective - Vital Signs Vital signs: Vital Signs Temp 98.1 F 07/14/24 07:00 Pulse 63 07/14/24 07:00 Resp 16 07/14/24 07:00 BP 101/64 07/14/24 07:00 Pulse Ox 96 07/14/24 07:00 FiO2 Intake & Output 07/13/24 07/14/24 07/14/24 18:59 06:59 18:59 Intake Total 100 120 Balance 100 120 Weight 43.182 kg Intake: IV 100 Oral 120 Other: Voiding Method Diaper Diaper # Voids 3 1 - Labs CBC & Chem 7: 07/14/24 09:18 07/14/24 09:18 Labs: Abnormal Lab Results - Last 24 Hours (Table) 07/08/24 07/13/24 07/14/24 Range/Units 17:33 19:07 09:18 WBC 2.86 L (4.50-10.00) 10*3/uL RBC 2.57 L (4.10-5.20) 10*6/uL Hgb 8.5 L (12.0-15.0) g/dL Hct 26.3 L (37.2-46.3) % MCV 102.3 H (80.0-97.0) fL MCH 33.1 H (27.0-32.0) pg RDW 19.8 H (11.5-14.5) % MPV 9.2 L (9.5-12.2) fL Neutrophils # 1.11 L (1.80-7.70) 10*3/uL Sodium (137-145) mmol/L BUN (7-17) mg/dL Glucose (74-99) mg/dL POC Glucose (mg/dL) 151 H (70-110) mg/dL Total Protein (6.3-8.2) g/dL Albumin (3.5-5.0) g/dL Albumin (PEP) 3.46 L (3.80-4.90) g/dL Gamma Globulins 0.62 L (0.70-1.50) g/dL 07/14/24 07/14/24 Range/Units 09:18 12:15 WBC (4.50-10.00) 10*3/uL RBC (4.10-5.20) 10*6/uL Hgb (12.0-15.0) g/dL Hct (37.2-46.3) % MCV (80.0-97.0) fL MCH (27.0-32.0) pg RDW (11.5-14.5) % MPV (9.5-12.2) fL Neutrophils # (1.80-7.70) 10*3/uL Sodium 132 L (137-145) mmol/L BUN 27 H (7-17) mg/dL Glucose 160 H (74-99) mg/dL POC Glucose (mg/dL) 155 H (70-110) mg/dL Total Protein 5.6 L (6.3-8.2) g/dL Albumin 3.3 L (3.5-5.0) g/dL Albumin (PEP) (3.80-4.90) g/dL Gamma Globulins (0.70-1.50) g/dL
[2024-07-14] MEDS: PEG 3350 (236 GM/BTL) + LYTES 4,000 ML BOTTLE PO ONE (13:33)
[2024-07-14 17:18] LABS: Glucose,Whole Blood 52 mg/dL (70-110)
[2024-07-14 17:36] LABS: Glucose,Whole Blood 81 mg/dL (70-110)
[2024-07-14 19:39] LABS: Glucose,Whole Blood 115 mg/dL (70-110)
--- NOTE | 2024-07-14 23:29 | P.PN ---
Subjective Progress Note Date: 07/14/24 Principal diagnosis: Anemia, esophagus bx Objective - Vital Signs Vital signs: Vital Signs Temp 98.1 F 07/14/24 07:00 Pulse 63 07/14/24 07:00 Resp 16 07/14/24 07:00 BP 101/64 07/14/24 07:00 Pulse Ox 96 07/14/24 07:00 FiO2 Intake & Output 07/13/24 07/14/24 07/14/24 18:59 06:59 18:59 Intake Total 100 120 Balance 100 120 Weight 43.182 kg Intake: IV 100 Oral 120 Other: Voiding Method Diaper Diaper # Voids 3 1 - Constitutional General appearance: Present: average body habitus, cooperative, no acute distress - EENT Eyes: Present: anicteric sclerae, EOMI ENT: Present: hearing grossly normal - Respiratory Details: resp unlabored - Cardiovascular Details: skin warm, radial pulse 2+ - Integumentary Integumentary: Present: pale - Musculoskeletal Musculoskeletal: Present: generalized weakness - Psychiatric Psychiatric Comment(s): Drowsy, oriented to self and place - Labs CBC & Chem 7: 07/14/24 09:18 07/14/24 09:18 Labs: Abnormal Lab Results - Last 24 Hours (Table) 07/08/24 07/13/24 07/14/24 Range/Units 17:33 19:07 09:18 WBC 2.86 L (4.50-10.00) 10*3/uL RBC 2.57 L (4.10-5.20) 10*6/uL Hgb 8.5 L (12.0-15.0) g/dL Hct 26.3 L (37.2-46.3) % MCV 102.3 H (80.0-97.0) fL MCH 33.1 H (27.0-32.0) pg RDW 19.8 H (11.5-14.5) % MPV 9.2 L (9.5-12.2) fL Neutrophils # 1.11 L (1.80-7.70) 10*3/uL Sodium (137-145) mmol/L BUN (7-17) mg/dL Glucose (74-99) mg/dL POC Glucose (mg/dL) 151 H (70-110) mg/dL Total Protein (6.3-8.2) g/dL Albumin (3.5-5.0) g/dL Albumin (PEP) 3.46 L (3.80-4.90) g/dL Gamma Globulins 0.62 L (0.70-1.50) g/dL 07/14/24 07/14/24 Range/Units 09:18 12:15 WBC (4.50-10.00) 10*3/uL RBC (4.10-5.20) 10*6/uL Hgb (12.0-15.0) g/dL Hct (37.2-46.3) % MCV (80.0-97.0) fL MCH (27.0-32.0) pg RDW (11.5-14.5) % MPV (9.5-12.2) fL Neutrophils # (1.80-7.70) 10*3/uL Sodium 132 L (137-145) mmol/L BUN 27 H (7-17) mg/dL Glucose 160 H (74-99) mg/dL POC Glucose (mg/dL) 155 H (70-110) mg/dL Total Protein 5.6 L (6.3-8.2) g/dL Albumin 3.3 L (3.5-5.0) g/dL Albumin (PEP) (3.80-4.90) g/dL Gamma Globulins (0.70-1.50) g/dL Assessment and Plan (1) Bicytopenia Current Visit: Yes Status: Acute Priority: High Code(s): D75.89 - OTHER SPECIFIED DISEASES OF BLOOD AND BLOOD-FORMING ORGANS SNOMED Code(s): 76277911 Plan: Leukopenia, Macrocytic anemia -Hgb 5.9 upon admit, 7-8 range since December 2023, mild anemia has been noted since at least 2013. 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 -In June anemia work up ordered revealed no nutritional deficiencies, most consistent with anemia of inflammation. -Concern for underlying bone marrow process. Work up so far is negative so, recommendation is for bone marrow biopsy. Pt and family will consider, would like a f/u with Bale Piler to further discuss, will plan for the same -Continue to monitor CBC. Transfuse for hgb < 7 or if symptomatic -family requesting orders to transfuse outpt, if able. Will send transfusion parameters to ECF and discuss what is able to be done to try and keep pt out of hospital.
[2024-07-15 04:52] LABS: HCT 26.3 % (37.2-46.3); HGB 8.5 g/dL (12.0-15.0); MCH 32.7 pg (27.0-32.0); MCHC 32.3 g/dL (32.0-37.0); MCV 101.2 fL (80.0-97.0); Mean Platelet Volume 9.9 fL (9.5-12.2); Platelet Count 234 10*3/uL (140-440); RDW 19.8 % (11.5-14.5); WBC 2.72 10*3/uL (4.50-10.00)
[2024-07-15 05:16] LABS: African American GFR (CKD) >90 (>60 ml/min/1.73 sqM); Anion Gap 7 mmol/L; Blood Urea Nitrogen 28 mg/dL (7-17); Calcium 9.2 mg/dL (8.4-10.2); Carbon Dioxide 24 mmol/L (22-30); Chloride 102 mmol/L (98-107); Glucose 82 mg/dL (74-99); Non-African American GFR(CKD) 83 (>60 ml/min/1.73 sqM); Potassium 4.7 mmol/L (3.5-5.1); Sodium 133 mmol/L (137-145)
[2024-07-15 05:53] LABS: Glucose,Whole Blood 87 mg/dL (70-110)
[2024-07-15 12:08] LABS: Glucose,Whole Blood 96 mg/dL (70-110)
--- NOTE | 2024-07-15 13:34 | P.PN ---
Subjective Progress Note Date: 07/15/24 SURGICAL PROGRESS NOTE CHIEF COMPLAINT: Anemia HISTORY OF PRESENT ILLNESS: Surgical service following in regards to patient's anemia. Per nursing staff no active bleeding noted. Hemoglobin is stable at 8.5. Patient is status post EGD with biopsies. EGD had reported esophagitis. Patient is not drinking very much of the GoLytely bowel prep. PHYSICAL EXAM: VITAL SIGNS: Reviewed. GENERAL: Well-developed in no acute distress. ABDOMEN: Soft. Nondistended. Nontender. NEUROLOGIC: Sleeping comfortably ASSESSMENT: 1. Anemia with no active signs of GI bleed 2. Bicytopenia with low WBC and Hgb 3. History of pyloric stenosis status post distal antrectomy with loop gastrojejunostomy 4. A-fib on Xarelto at home PLAN: -Patient scheduled for colonoscopy tomorrow with Dr. Leos -Will have nursing staff give GoLytely bowel prep down NG tube -N.p.o. after midnight -Continue to hold Xarelto -Continue to monitor hemoglobin -Hematology recommendations noted Physician Neurourologist note has been reviewed by physician. Signing provider agrees with the documented findings, assessment, and plan of care. Objective - Vital Signs Vital signs: Vital Signs Temp 97.9 F 07/15/24 07:25 Pulse 70 07/15/24 07:25 Resp 16 07/15/24 07:25 BP 85/53 07/15/24 07:25 Pulse Ox 98 07/15/24 07:25 FiO2 Intake & Output 07/14/24 07/15/24 07/15/24 18:59 06:59 18:59 Intake Total 240 120 Balance 240 120 Weight 43.182 kg Intake: Oral 240 120 Other: Voiding Method Diaper Diaper Diaper # Voids 3 2 # Bowel Movements 1 - Labs CBC & Chem 7: 07/15/24 04:24 07/15/24 04:24 Labs: Abnormal Lab Results - Last 24 Hours (Table) 07/14/24 07/14/24 07/15/24 Range/Units 17:17 19:37 04:24 WBC 2.72 L (4.50-10.00) 10*3/uL RBC 2.60 L (4.10-5.20) 10*6/uL Hgb 8.5 L (12.0-15.0) g/dL Hct 26.3 L (37.2-46.3) % MCV 101.2 H (80.0-97.0) fL MCH 32.7 H (27.0-32.0) pg RDW 19.8 H (11.5-14.5) % Sodium (137-145) mmol/L BUN (7-17) mg/dL POC Glucose (mg/dL) 52 L 115 H (70-110) mg/dL 07/15/24 Range/Units 04:24 WBC (4.50-10.00) 10*3/uL RBC (4.10-5.20) 10*6/uL Hgb (12.0-15.0) g/dL Hct (37.2-46.3) % MCV (80.0-97.0) fL MCH (27.0-32.0) pg RDW (11.5-14.5) % Sodium 133 L (137-145) mmol/L BUN 28 H (7-17) mg/dL POC Glucose (mg/dL) (70-110) mg/dL
--- NOTE | 2024-07-15 16:30 | P.PN ---
Subjective Progress Note Date: 07/15/24 Prerna Hyde is an 89-year-old female patient who presented to the ER with concerns of anemia patient is a long-term resident at [facility] and was recently admitted for similar anemia at the time patient was evaluated by GI services no endoscopic study completed at the time no signs of bleeding. Upon arrival patient's hemoglobin was 5.9. Patient did receive 1 unit of PRBCs repeat hemoglobin 7.1. Patient has a past medical history of CVA and A-fib in which she is maintained on Xarelto., Diabetes mellitus, GERD, hyperlipidemia, hypertension tension and dementia. At this time patient denies chest pain or shortness of breath. Patient denies nausea vomiting or diarrhea. Patient denies any urinary burning or frequency. Current vital signs temp 97.9, heart 62, respiratory rate 17, blood pressure 149/77 with a pulse ox of 100% on room air. Surgical services will be consulted. Patient denies chest pain or shortness of breath. Patient denies nausea vomiting or diarrhea. Patient denies any urinary burning or frequency On 07/10/2024 patient was seen and examined on the medical floor she is alert and oriented x 2 in no apparent distress she has very low oral intake she is denying any pain or discomfort at this time she was evaluated by general surgery and plan is to proceed with EGD on Saturday patient was also evaluated by hematology anemia labs were ordered, awaiting for results. Vital exam reveals a temperature of 98.7 pulse 89 respiration 16 blood pressure 108/66 pulse ox 98% o n room air BUN 17.6 creatinine 0.4 CBC is still pending. On 07/11/2024 patient was seen and examined on the medical floor she is alert and oriented x 3 in no apparent distress there is no fever or chills no headache or dizziness no chest pain no shortness of breath no cough no nausea or vomiting no abdominal pain no diarrhea and no urinary symptoms. Blood pressure is on the low side will monitor closely. Patient is scheduled for EGD on Saturday. On 07/12/2024 patient is alert and oriented x 3. Patient is resting comfortably in bed.. Plans for EGD tomorrow. Hemoglobin remained stable at 8.6. Patient denies chest pain or shortness of breath. Patient denies nausea vomiting or diarrhea. Patient denies any urinary burning or frequency. Current vital signs temp 97.9, heart 64, respiratory rate 16, blood pressure 105/78 with a pulse ox of 96% on room air On 07/13/2024 patient was seen and examined on the medical floor she is alert and oriented x 3 in no apparent distress there is no fever or chills no headache or dizziness no chest pain no shortness of breath no cough no nausea or vomiting no abdominal pain no diarrhea and no urinary symptoms. Blood pressure is on the low side will monitor closely. Patient is scheduled for EGD today On 07/14/2024 patient is alert and oriented x 3 resting comfortably in bed. Status post EGD. Showing esophagitis. Hemoglobin stable at 8.1. Patient will be DC'd back to ECF continue Protonix patient started back on her Xarelto. Will continue to monitor hemoglobin and ECF facility. Patient denies chest pain or shortness of breath. Patient denies nausea vomiting or diarrhea. Patient denies any urinary burning or frequency. Patient was reevaluated by surgery and plan was changed to continuing admission and colonoscopy on . On 07/15/2024 patient was seen and examined on the medical floor she is alert responsive in no apparent distress, there is no fever or chills no headache or dizziness no chest pain no shortness of breath no cough no nausea or vomiting no abdominal pain no diarrhea and no urinary symptoms. Plan per Dr. Wright is to proceed with colonoscopy in a.m. tomorrow. Objective - Vital Signs Vital signs: Vital Signs Temp 97.9 F 07/15/24 07:25 Pulse 70 07/15/24 07:25 Resp 16 07/15/24 07:25 BP 85/53 07/15/24 07:25 Pulse Ox 98 07/15/24 07:25 FiO2 Intake & Output 07/14/24 07/15/24 07/15/24 18:59 06:59 18:59 Intake Total 240 Balance 240 Weight 43.182 kg Intake: Oral 240 Other: Voiding Method Diaper Diaper # Voids 3 2 # Bowel Movements 1 - Exam In general patient is alert and oriented x 3 in no distress HEENT head normocephalic and atraumatic Neck is supple no JVD no goiter no lymphadenopathy no carotid bruit Chest examination is clear to auscultation no crackles no wheezing Cardiac exam reveals regular heart sounds S1 and S2 no gallops no murmurs Abdomen is soft nontender no organomegaly with normal bowel sounds Extremity exam reveals no edema no cyanosis or clubbing Neurological examination reveals no gross focal deficits - Labs CBC & Chem 7: 07/15/24 04:24 07/15/24 04:24 Labs: Abnormal Lab Results - Last 24 Hours (Table) 07/14/24 07/14/24 07/14/24 Range/Units 09:18 09:18 12:15 WBC 2.86 L (4.50-10.00) 10*3/uL RBC 2.57 L (4.10-5.20) 10*6/uL Hgb 8.5 L (12.0-15.0) g/dL Hct 26.3 L (37.2-46.3) % MCV 102.3 H (80.0-97.0) fL MCH 33.1 H (27.0-32.0) pg RDW 19.8 H (11.5-14.5) % MPV 9.2 L (9.5-12.2) fL Neutrophils # 1.11 L (1.80-7.70) 10*3/uL Sodium 132 L (137-145) mmol/L BUN 27 H (7-17) mg/dL Glucose 160 H (74-99) mg/dL POC Glucose (mg/dL) 155 H (70-110) mg/dL Total Protein 5.6 L (6.3-8.2) g/dL Albumin 3.3 L (3.5-5.0) g/dL 07/14/24 07/14/24 07/15/24 Range/Units 17:17 19:37 04:24 WBC 2.72 L (4.50-10.00) 10*3/uL RBC 2.60 L (4.10-5.20) 10*6/uL Hgb 8.5 L (12.0-15.0) g/dL Hct 26.3 L (37.2-46.3) % MCV 101.2 H (80.0-97.0) fL MCH 32.7 H (27.0-32.0) pg RDW 19.8 H (11.5-14.5) % MPV (9.5-12.2) fL Neutrophils # (1.80-7.70) 10*3/uL Sodium (137-145) mmol/L BUN (7-17) mg/dL Glucose (74-99) mg/dL POC Glucose (mg/dL) 52 L 115 H (70-110) mg/dL Total Protein (6.3-8.2) g/dL Albumin (3.5-5.0) g/dL 07/15/24 Range/Units 04:24 WBC (4.50-10.00) 10*3/uL RBC (4.10-5.20) 10*6/uL Hgb (12.0-15.0) g/dL Hct (37.2-46.3) % MCV (80.0-97.0) fL MCH (27.0-32.0) pg RDW (11.5-14.5) % MPV (9.5-12.2) fL Neutrophils # (1.80-7.70) 10*3/uL Sodium 133 L (137-145) mmol/L BUN 28 H (7-17) mg/dL Glucose (74-99) mg/dL POC Glucose (mg/dL) (70-110) mg/dL Total Protein (6.3-8.2) g/dL Albumin (3.5-5.0) g/dL Assessment and Plan Assessment: 1. Anemia hemoglobin 5.9 on admission 2. History of proximal A-fib. Patient Trinh currently on hold 3. History of dementia 4. History of essential hypertension 5. History of hyperlipidemia 6. History of hypothyroidism 7. Previous history of pyloric stenosis with history of distal antrectomy with group gastrojejunostomy DVT prophylaxis SCDs. GI prophylax Protonix Surgical services consulted Status post 1 unit of PRBCs Repeat labs ordered EGD 07/13/2024
--- NOTE | 2024-07-15 17:15 | XR ---
EXAMINATION TYPE: XR chest 1V DATE OF EXAM: 07/15/2024 5:00 PM COMPARISON: Chest radiographs from 06/27/2024 CLINICAL INDICATION: Female, 89 years old with history of NG tube placement; [facility] TECHNIQUE: XR chest 1V Frontal view of the chest. FINDINGS: Lungs/Pleura: There is flattening of the diaphragm with increased lucency of the lungs. No evidence o f pneumothorax, pleural effusion or focal consolidation. Pulmonary vascularity: Unremarkable. Heart/mediastinum: Cardiomediastinal silhouette is unremarkable. Musculoskeletal: No acute osseous pathology. Other findings: None Lines/Tubes: Nasogastric tube with its distal tip and side-port projecting under the diaphragm. IMPRESSION: 1. No acute cardiopulmonary disease process. 2. COPD changes. [facility], , 07/15/2024 5:13 PM
[2024-07-15 17:20] LABS: Glucose,Whole Blood 142 mg/dL (70-110)
[2024-07-15 20:16] LABS: Glucose,Whole Blood 87 mg/dL (70-110)
--- NOTE | 2024-07-15 22:28 | XR ---
EXAMINATION TYPE: XR chest 1V DATE OF EXAM: 07/15/2024 10:24 PM COMPARISON: Chest radiographs from 07/15/2024 CLINICAL INDICATION: Female, 89 years old with history of NG tube placement; [facility] TECHNIQUE: XR chest 1V Frontal view of the chest. FINDINGS: Lungs/Pleura: There is no evidence of pleural effusion, focal consolidation, or pneumothorax. Pulmonary vascularity: Unremarkable. Heart/mediastinum: Cardiomediastinal silhouette is unremarkable. Musculoskeletal: No acute osseous pathology. Other findings: None Lines/Tubes: Nasogastric tube with its distal tip and side-port projecting under the diaphragm. IMPRESSION: 1. Nasogastric tube in appropriate position. 2. No acute cardiopulmonary disease/process. [facility], , 07/15/2024 10:26 PM
[2024-07-16 04:05] LABS: HCT 28.7 % (37.2-46.3); HGB 9.2 g/dL (12.0-15.0); MCHC 32.1 g/dL (32.0-37.0); MCV 102.9 fL (80.0-97.0); Mean Platelet Volume 9.4 fL (9.5-12.2); Platelet Count 246 10*3/uL (140-440); RBC 2.79 10*6/uL (4.10-5.20); RDW 19.3 % (11.5-14.5); WBC 3.05 10*3/uL (4.50-10.00)
[2024-07-16 04:28] LABS: African American GFR (CKD) >90 (>60 ml/min/1.73 sqM); Anion Gap 6 mmol/L; Blood Urea Nitrogen 25 mg/dL (7-17); Calcium 9.5 mg/dL (8.4-10.2); Carbon Dioxide 28 mmol/L (22-30); Chloride 98 mmol/L (98-107); Glucose 93 mg/dL (74-99); Non-African American GFR(CKD) 79 (>60 ml/min/1.73 sqM); Potassium 4.6 mmol/L (3.5-5.1); Sodium 132 mmol/L (137-145)
[2024-07-16 05:22] LABS: Glucose,Whole Blood 86 mg/dL (70-110)
--- NOTE | 2024-07-16 09:23 | P.PN ---
Subjective Progress Note Date: 07/16/24 Prerna Hyde is an 89-year-old female patient who presented to the ER with concerns of anemia patient is a long-term resident at [facility] and was recently admitted for similar anemia at the time patient was evaluated by GI services no endoscopic study completed at the time no signs of bleeding. Upon arrival patient's hemoglobin was 5.9. Patient did receive 1 unit of PRBCs repeat hemoglobin 7.1. Patient has a past medical history of CVA and A-fib in which she is maintained on Xarelto., Diabetes mellitus, GERD, hyperlipidemia, hypertension tension and dementia. At this time patient denies chest pain or shortness of breath. Patient denies nausea vomiting or diarrhea. Patient denies any urinary burning or frequency. Current vital signs temp 97.9, heart 62, respiratory rate 17, blood pressure 149/77 with a pulse ox of 100% on room air. Surgical services will be consulted. Patient denies chest pain or shortness of breath. Patient denies nausea vomiting or diarrhea. Patient denies any urinary burning or frequency On 07/10/2024 patient was seen and examined on the medical floor she is alert and oriented x 2 in no apparent distress she has very low oral intake she is denying any pain or discomfort at this time she was evaluated by general surgery and plan is to proceed with EGD on Saturday patient was also evaluated by hematology anemia labs were ordered, awaiting for results. Vital exam reveals a temperature of 98.7 pulse 89 respiration 16 blood pressure 108/66 pulse ox 98% o n room air BUN 17.6 creatinine 0.4 CBC is still pending. On 07/11/2024 patient was seen and examined on the medical floor she is alert and oriented x 3 in no apparent distress there is no fever or chills no headache or dizziness no chest pain no shortness of breath no cough no nausea or vomiting no abdominal pain no diarrhea and no urinary symptoms. Blood pressure is on the low side will monitor closely. Patient is scheduled for EGD on Saturday. On 07/12/2024 patient is alert and oriented x 3. Patient is resting comfortably in bed.. Plans for EGD tomorrow. Hemoglobin remained stable at 8.6. Patient denies chest pain or shortness of breath. Patient denies nausea vomiting or diarrhea. Patient denies any urinary burning or frequency. Current vital signs temp 97.9, heart 64, respiratory rate 16, blood pressure 105/78 with a pulse ox of 96% on room air On 07/13/2024 patient was seen and examined on the medical floor she is alert and oriented x 3 in no apparent distress there is no fever or chills no headache or dizziness no chest pain no shortness of breath no cough no nausea or vomiting no abdominal pain no diarrhea and no urinary symptoms. Blood pressure is on the low side will monitor closely. Patient is scheduled for EGD today On 07/14/2024 patient is alert and oriented x 3 resting comfortably in bed. Status post EGD. Showing esophagitis. Hemoglobin stable at 8.1. Patient will be DC'd back to ECF continue Protonix patient started back on her Xarelto. Will continue to monitor hemoglobin and ECF facility. Patient denies chest pain or shortness of breath. Patient denies nausea vomiting or diarrhea. Patient denies any urinary burning or frequency. Patient was reevaluated by surgery and plan was changed to continuing admission and colonoscopy on . On 07/15/2024 patient was seen and examined on the medical floor she is alert responsive in no apparent distress, there is no fever or chills no headache or dizziness no chest pain no shortness of breath no cough no nausea or vomiting no abdominal pain no diarrhea and no urinary symptoms. Plan per Dr. Wright is to proceed with colonoscopy in a.m. tomorrow. On 07/16/2024 patient is alert and oriented x 2-3. Patient's daughter at bedside plans today for colonoscopy patient did complete prep. Family requesting palliative information. Will consult social work services. Patient denies chest pain or shortness of breath. Patient denies nausea vomiting or diarrhea. Patient denies any urinary burning or frequency hemoglobin today 9.2 Objective - Vital Signs Vital signs: Vital Signs Temp 97.5 F L 07/16/24 07:35 Pulse 74 07/16/24 07:35 Resp 16 07/16/24 07:35 BP 123/80 07/16/24 07:35 Pulse Ox 97 07/16/24 07:35 FiO2 Intake & Output 07/15/24 07/16/24 07/16/24 18:59 06:59 18:59 Intake Total 718 Balance 718 Intake: Oral 718 Other: Voiding Method Diaper Diaper # Voids 1 1 # Bowel Movements 1 4 1 - Exam In general patient is alert and oriented x 3 in no distress HEENT head normocephalic and atraumatic Neck is supple no JVD no goiter no lymphadenopathy no carotid bruit Chest examination is clear to auscultation no crackles no wheezing Cardiac exam reveals regular heart sounds S1 and S2 no gallops no murmurs Abdomen is soft nontender no organomegaly with normal bowel sounds Extremity exam reveals no edema no cyanosis or clubbing Neurological examination reveals no gross focal deficits - Labs CBC & Chem 7: 07/16/24 03:48 07/16/24 03:48 Labs: Abnormal Lab Results - Last 24 Hours (Table) 07/15/24 07/16/24 07/16/24 Range/Units 17:18 03:48 03:48 WBC 3.05 L (4.50-10.00) 10*3/uL RBC 2.79 L (4.10-5.20) 10*6/uL Hgb 9.2 L (12.0-15.0) g/dL Hct 28.7 L (37.2-46.3) % MCV 102.9 H (80.0-97.0) fL MCH 33.0 H (27.0-32.0) pg RDW 19.3 H (11.5-14.5) % MPV 9.4 L (9.5-12.2) fL Sodium 132 L (137-145) mmol/L BUN 25 H (7-17) mg/dL POC Glucose (mg/dL) 142 H (70-110) mg/dL Assessment and Plan Assessment: 1. Anemia hemoglobin 5.9 on admission 2. History of proximal A-fib. Patient Trinh currently on hold 3. History of dementia 4. History of essential hypertension 5. History of hyperlipidemia 6. History of hypothyroidism 7. Previous history of pyloric stenosis with history of distal antrectomy with group gastrojejunostomy DVT prophylaxis SCDs. GI prophylax Protonix Surgical services consulted Status post 1 unit of PRBCs Repeat labs ordered EGD 07/13/2024 Plans for colonoscopy 07/16/2024
[2024-07-16] MEDS ORDERED: PROPOFOL 10 MG/ML 20 ML VIAL IV ONE (11:02)
[2024-07-16] MEDS: LACTATED RINGERS 1,000 ML IV ONE (11:30)
--- NOTE | 2024-07-16 11:40 | P.OP ---
Date of Procedure: 07/16/24 Preoperative Diagnosis: Anemia GI bleed Postoperative Diagnosis: Poor colon prep Procedure(s) Performed: Colonoscopy Anesthesia: MAC Surgeon: Zoran Leos Pathology: none sent Condition: stable Disposition: PACU Description of Procedure: The patient is placed on the endoscopy table in the lateral position. She received IV sedation. Digital rectal exam was performed which revealed no abnormalities. There is large but liquid stool in the rectum. This with the colonoscope was then placed patient anus and passed throughout the colon. Scope never passed beyond the sigmoid colon secondary to poor colon prep. There is large amount of dark liquid stool. This point scope withdrawn. The visualized colon did not appear to have any evidence of GI bleed. The scope was withdrawn from the patient.
[2024-07-16 12:21] LABS: Glucose,Whole Blood 68 mg/dL (70-110)
[2024-07-16 12:45] LABS: Glucose,Whole Blood 38 mg/dL (70-110)
[2024-07-16 13:17] LABS: Glucose,Whole Blood 54 mg/dL (70-110)
[2024-07-16 13:43] LABS: Glucose,Whole Blood 77 mg/dL (70-110)
[2024-07-16 14:32] LABS: Glucose,Whole Blood 108 mg/dL (70-110)
[2024-07-16 17:00] LABS: Glucose,Whole Blood 172 mg/dL (70-110)
[2024-07-16] MEDS: LOPERAMIDE 2 MG CAP PO PRN (17:53)
[2024-07-16 20:12] LABS: Glucose,Whole Blood 135 mg/dL (70-110)
[2024-07-17 06:01] LABS: Glucose,Whole Blood 98 mg/dL (70-110)
[2024-07-17 07:56] VITALS: TEMP 98.7
[2024-07-17 08:12] LABS: Basophils # (A) 0.02 X 10*3/uL (0.00-0.10); Basophils % (A) 0.7 %; Eosinophils % (A) 3.3 %; HCT 24.3 % (37.2-46.3); HGB 7.4 g/dL (12.0-15.0); Lymphocytes # (A) 0.84 X 10*3/uL (0.90-5.00); Lymphocytes % (A) 27.6 %; MCH 32.5 pg (27.0-32.0); MCHC 30.5 g/dL (32.0-37.0); MCV 106.6 FL (80.0-97.0); Mean Platelet Volume 9.6 FL (9.5-12.2); Monocytes % (A) 19.7 %; NRBC Per 100 WBC 0 X 10*3/uL (0.00-0.01); Neutrophils # (A) 1.47 X 10*3/uL (1.80-7.70); Neutrophils % (A) 48.4 %; Platelet Count 239 X 10*3/uL (140-440); RBC 2.28 X 10*6/uL (4.10-5.20); RDW 20.1 % (11.5-14.5); WBC 3.04 X 10*3/uL (4.50-10.00)
[2024-07-17 08:19] LABS: ALT 21 U/L (8-44); AST 17 U/L (13-35); Albumin 3.4 g/dL (3.8-4.9); Albumin/Globulin Ratio 1.89 Ratio (1.60-3.17); Alkaline Phosphatase 62 U/L (41-126); BUN/Creat Ratio 31.67 Ratio (12.00-20.00); Calcium 8.9 mg/dL (8.7-10.3); Carbon Dioxide 24.4 mmol/L (21.6-31.8); Chloride 104 mmol/L (96-109); Globulin 1.8 g/dL (1.6-3.3); Glucose 93 mg/dL (70-110); Sodium 137 mmol/L (135-145); Total Bilirubin 0.2 mg/dL (0.3-1.2); Total Protein 5.2 g/dL (6.2-8.2)
--- NOTE | 2024-07-17 09:32 | P.DS ---
Providers Date of admission: 07/10/24 07:58 Expected date of discharge: 07/17/24 Attending physician: Melissa Leiva Consults: 07/09/24 10:13 Consult Physician Routine Consulting Provider: Howard Johnson Consult Reason/Comments: Frequent Anemia Do you want consulting provider notified?: Yes 07/09/24 11:18 Consult Physician Routine Consulting Provider: Zoran Leos Consult Reason/Comments: anemia Do you want consulting provider notified?: Already Contacted Primary care physician: Melissa Leiva [facility] Course: Discharge diagnosis 1. Anemia hemoglobin 5.9 on admission 2. History of proximal A-fib. Patient Xarelto currently on hold 3. History of dementia 4. History of essential hypertension 5. History of hyperlipidemia 6. History of hypothyroidism 7. Previous history of pyloric stenosis with history of distal antrectomy with group gastrojejunostomy DVT prophylaxis SCDs. GI prophylax Protonix Surgical services consulted Status post 1 unit of PRBCs Repeat labs ordered EGD 07/13/2024 Plans for colonoscopy 07/16/2024 Hospital course Prerna Hyde is an 89-year-old female patient who presented to the ER with concerns of anemia patient is a long-term resident at [facility] and was recently admitted for similar anemia at the time patient was evaluated by GI services no endoscopic study completed at the time no signs of bleeding. Upon arrival patient's hemoglobin was 5.9. Patient did receive 1 unit of PRBCs repeat hemoglobin 7.1. Patient has a past medical history of CVA and A-fib in which she is maintained on Xarelto., Diabetes mellitus, GERD, hyperlipidemia, hypertension tension and dementia. At this time patient denies chest pain or shortness of breath. Patient denies nausea vomiting or diarrhea. Patient denies any urinary burning or frequency. Current vital signs temp 97.9, heart 62, respiratory rate 17, blood pressure 149/77 with a pulse ox of 100% on room air. Surgical services will be consulted. Patient denies chest pain or shortness of breath. Patient denies nausea vomiting or diarrhea. Patient denies any urinary burning or frequency On 07/10/2024 patient was seen and examined on the medical floor she is alert and oriented x 2 in no apparent distress she has very low oral intake she is denying any pain or discomfort at this time she was evaluated by general surgery and plan is to proceed with EGD on Saturday patient was also evaluated by hematology anemia labs were ordered, awaiting for results. Vital exam reveals a temperature of 98.7 pulse 89 respiration 16 blood pressure 108/66 pulse ox 98% on room air BUN 17.6 creatinine 0.4 CBC is still pending. On 07/11/2024 patient was seen and examined on the medical floor she is alert and oriented x 3 in no apparent distress there is no fever or chills no headache or dizziness no chest pain no shortness of breath no cough no nausea or vomiting no abdominal pain no diarrhea and no urinary symptoms. Blood pressure is on the low side will monitor closely. Patient is scheduled for EGD on Saturday. On 07/12/2024 patient is alert and oriented x 3. Patient is resting comfortably in bed.. Plans for EGD tomorrow. Hemoglobin remained stable at 8.6. Patient denies chest pain or shortness of breath. Patient denies nausea vomiting or diarrhea. Patient denies any urinary burning or frequency. Current vital signs temp 97.9, heart 64, respiratory rate 16, blood pressure 105/78 with a pulse ox of 96% on room air On 07/13/2024 patient was seen and examined on the medical floor she is alert and oriented x 3 in no apparent distress there is no fever or chills no headache or dizziness no chest pain no shortness of breath no cough no nausea or vomiting no abdominal pain no diarrhea and no urinary symptoms. Blood pressure is on the low side will monitor closely. Patient is scheduled for EGD today On 07/14/2024 patient is alert and oriented x 3 resting comfortably in bed. Status post EGD. Showing esophagitis. Hemoglobin stable at 8.1. Patient will be DC'd back to ECF continue Protonix patient started back on her Xarelto. Will continue to monitor hemoglobin and ECF facility. Patient denies chest pain or shortness of breath. Patient denies nausea vomiting or diarrhea. Patient denies any urinary burning or frequency. Patient was reevaluated by surgery and plan was changed to continuing admission and colonoscopy on . On 07/15/2024 patient was seen and examined on the medical floor she is alert responsive in no apparent distress, there is no fever or chills no headache or dizziness no chest pain no shortness of breath no cough no nausea or vomiting no abdominal pain no diarrhea and no urinary symptoms. Plan per Dr. Wright is to proceed with colonoscopy in a.m. tomorrow. On 07/16/2024 patient is alert and oriented x 2-3. Patient's daughter at bedside plans today for colonoscopy patient did complete prep. Family requesting palliative information. Will consult social work services. Patient denies chest pain or shortness of breath. Patient denies nausea vomiting or diarrhea. Patient denies any urinary burning or frequency hemoglobin today 9.2 On 07/17/2024 patient is alert and oriented x 3 currently sitting up in bed. Patient had colonoscopy completed yesterday did not show any signs of bleeding. Hemoglobin today 7.4 patient to receive IV iron prior to discharge back to [facility]. Patient denies chest pain or shortness of breath. Patient denies nausea vomiting or diarrhea. Patient denies any urinary burning or frequency Patient Condition at Discharge: Stable Plan - Discharge Summary Discharge Rx Participant: Yes New Discharge Prescriptions: Continue timoloL maleate [Timolol Maleate] 1 drop BOTH EYES DAILY@0800 rOPINIRole HCL [Requip] 3 mg PO HS@2100 Donepezil HCl [Aricept] 5 mg PO HS@2100 Ferrous Sulfate [Iron (65 MG Elemental)] 325 mg PO DAILY@0800 Latanoprost Ophth [Xalatan 0.005%] 1 drop BOTH EYES HS@2100 Potassium Chloride ER [K-Dur 10] 10 meq PO DAILY@1700 lisinopriL [Prinivil] 5 mg PO DAILY@0800 Rosuvastatin Calcium [Crestor] 5 mg PO HS@2100 Sennosides [Senna] 8.6 mg PO HS PRN PRN Reason: Constipation Pantoprazole [Protonix] 40 mg PO DAILY@0800 Loperamide HCl [Loperamide] 2 mg PO Q6H PRN PRN Reason: Loose Stool Acetaminophen [Tylenol] 650 mg PO Q6H PRN PRN Reason: Fever And/ Or Pain Acetaminophen Tab [Tylenol] 650 mg PO BID@0800,1999 Cholecalciferol [Vitamin D3 (25 Mcg = 1000 Iu)] 25 mcg PO DAILY@0800 Retaine Pm Opthalmic Ointment 1 applic LEFT EYE HS@2100 Metoprolol Succinate (ER) [Toprol XL] 25 mg PO DAILY@0800 Rivaroxaban [Xarelto] 10 mg PO DAILY@0800 bisacodyL [Dulcolax] 10 mg RECTAL DAILY PRN PRN Reason: Constipation Levothyroxine Sodium [Synthroid] 25 mcg PO DAILY@0800 guaiFENesin SYRUP 100MG/5ML [Robitussin] 200 mg PO Q4H PRN PRN Reason: Cough Na Phos,M-B/Na Phos,Di-Ba [Fleet Adult] 133 ml RECTAL DAILY PRN PRN Reason: Constipation Refresh Celluvisc Ophthalmic Gel 1% 1 drop LEFT EYE TID@0800,1200,1700 Vit C/E/Zn/Coppr/Lutein/Zeaxan [Preservision Areds 2 Softgel] 1 cap PO BID@0800,1700 Ensure Enlive 120 ml PO BID@0800,1200 Magnesium Hydroxide [Milk of Magnesia Concentrate] 7,200 mg PO DIRECTED PRN PRN Reason: 2 days no bm Magic Cup 1 dose PO DAILY@1200 Megestrol [Megace] 400 mg PO DAILY@0600 Discontinued Aspirin EC [Ecotrin Low Dose] 81 mg PO DAILY@0800 Discharge Medication List rOPINIRole HCL [Requip] 3 mg PO HS@209912/23/15 [History] timoloL maleate [Timolol Maleate] 1 drop BOTH EYES DAILY@0812/23/15 [History] Donepezil HCl [Aricept] 5 mg PO HS@209910/15/17 [History] Ferrous Sulfate [Iron (65 MG Elemental)] 325 mg PO DAILY@0812/25/17 [History] Latanoprost Ophth [Xalatan 0.005%] 1 drop BOTH EYES HS@209912/25/17 [History] Potassium Chloride ER [K-Dur 10] 10 meq PO DAILY@1700 12/25/17 [History] lisinopriL [Prinivil] 5 mg PO DAILY@0812/30/17 [History] Rivaroxaban [Xarelto] 10 mg PO DAILY@0802/14/21 [History] Rosuvastatin Calcium [Crestor] 5 mg PO HS@209902/14/21 [History] Levothyroxine Sodium [Synthroid] 25 mcg PO DAILY@0800 03/08/21 [History] Sennosides [Senna] 8.6 mg PO HS PRN 03/08/21 [History] bisacodyL [Dulcolax] 10 mg RECTAL DAILY PRN 03/08/21 [History] Pantoprazole [Protonix] 40 mg PO DAILY@0800 05/04/21 [History] Acetaminophen Tab [Tylenol] 650 mg PO BID@0800,2000 06/25/24 [History] Acetaminophen [Tylenol] 650 mg PO Q6H PRN 06/25/24 [History] Cholecalciferol [Vitamin D3 (25 Mcg = 1000 Iu)] 25 mcg PO DAILY@0800 06/25/24 [History] Ensure Enlive 120 ml PO BID@0800,1200 06/25/24 [History] Loperamide HCl [Loperamide] 2 mg PO Q6H PRN 06/25/24 [History] Magnesium Hydroxide [Milk of Magnesia Concentrate] 7,200 mg PO DIRECTED PRN 06/25/24 [History] Metoprolol Succinate (ER) [Toprol XL] 25 mg PO DAILY@0800 06/25/24 [History] Na Phos,M-B/Na Phos,Di-Ba [Fleet Adult] 133 ml RECTAL DAILY PRN 06/25/24 [History] Refresh Celluvisc Ophthalmic Gel 1% 1 drop LEFT EYE TID@0800,1200,1700 06/25/24 [History] Retaine Pm Opthalmic Ointment 1 applic LEFT EYE HS@2100 06/25/24 [History] Vit C/E/Zn/Coppr/Lutein/Zeaxan [Preservision Areds 2 Softgel] 1 cap PO BID@0800,1700 06/25/24 [History] guaiFENesin SYRUP 100MG/5ML [Robitussin] 200 mg PO Q4H PRN 06/25/24 [History] Magic Cup 1 dose PO DAILY@1200 07/08/24 [History] Megestrol [Megace] 400 mg PO DAILY@0600 07/08/24 [History] Follow up Appointment(s)/Referral(s): Melissa Leiva MD [Primary Care Provider] - 1-2 days Activity/Diet/Wound Care/Special Instructions: Activity as tolerated Diet heart healthy Discharge Disposition: TRANSFER TO SNF/ECF
[2024-07-17] MEDS: SODIUM FERRIC GLUCONAT-SUCROSE 125 MG in SODIUM CHLORIDE 0.9% 100 ML IVPB ONE (10:05)
--- NOTE | 2024-07-17 12:07 | P.PN ---
Subjective Progress Note Date: 07/17/24 SURGICAL PROGRESS NOTE CHIEF COMPLAINT: Anemia HISTORY OF PRESENT ILLNESS: Surgical service following in regards to patient's anemia. No active bleeding reported. Patient's colonoscopy had poor bowel prep yesterday. EGD reported esophagitis. Hemoglobin today 7.4. Vital stable PHYSICAL EXAM: VITAL SIGNS: Reviewed. GENERAL: Well-developed in no acute distress. ABDOMEN: Soft. Nondistended. Nontender. NEUROLOGIC: Sleeping comfortably ASSESSMENT: 1. Anemia with no active signs of GI bleed 2. Bicytopenia with low WBC and Hgb 3. History of pyloric stenosis status post distal antrectomy with loop gastrojejunostomy 4. A-fib on Xarelto at home PLAN: -Medicine service has ordered IV iron and discharged today -Patient can be discharged from surgical standpoint Physician Bench M[employer] Apprentice note has been reviewed by physician. Signing provider agrees with the documented findings, assessment, and plan of care. Objective - Vital Signs Vital signs: Vital Signs Temp 98.7 F 07/17/24 07:00 Pulse 79 07/17/24 10:44 Resp 16 07/17/24 10:44 BP 121/65 07/17/24 07:00 Pulse Ox 97 07/17/24 07:00 FiO2 Intake & Output 07/16/24 07/17/24 07/17/24 18:59 06:59 18:59 Intake Total 300 120 Balance 300 120 Intake: IV 300 Oral 120 Other: Voiding Method Diaper Diaper Diaper # Voids 1 4 1 # Bowel Movements 1 - Labs CBC & Chem 7: 07/17/24 04:52 07/17/24 04:52 Labs: Abnormal Lab Results - Last 24 Hours (Table) 07/16/24 07/16/24 07/16/24 Range/Units 12:20 12:44 13:16 WBC (4.50-10.00) X 10*3/uL RBC (4.10-5.20) X 10*6/uL Hgb (12.0-15.0) g/dL Hct (37.2-46.3) % MCV (80.0-97.0) FL MCH (27.0-32.0) pg MCHC (32.0-37.0) g/dL RDW (11.5-14.5) % Neutrophils # (1.80-7.70) X 10*3/uL Lymphocytes # (0.90-5.00) X 10*3/uL BUN/Creatinine Ratio (12.00-20.00) Ratio POC Glucose (mg/dL) 68 L 38 L* 54 L (70-110) mg/dL Total Bilirubin (0.3-1.2) mg/dL Total Protein (6.2-8.2) g/dL Albumin (3.8-4.9) g/dL 07/16/24 07/16/24 07/17/24 Range/Units 16:59 20:10 04:52 WBC 3.04 L (4.50-10.00) X 10*3/uL RBC 2.28 L (4.10-5.20) X 10*6/uL Hgb 7.4 L (12.0-15.0) g/dL Hct 24.3 L (37.2-46.3) % MCV 106.6 H (80.0-97.0) FL MCH 32.5 H (27.0-32.0) pg MCHC 30.5 L (32.0-37.0) g/dL RDW 20.1 H (11.5-14.5) % Neutrophils # 1.47 L (1.80-7.70) X 10*3/uL Lymphocytes # 0.84 L (0.90-5.00) X 10*3/uL BUN/Creatinine Ratio (12.00-20.00) Ratio POC Glucose (mg/dL) 172 H 135 H (70-110) mg/dL Total Bilirubin (0.3-1.2) mg/dL Total Protein (6.2-8.2) g/dL Albumin (3.8-4.9) g/dL 07/17/24 Range/Units 04:52 WBC (4.50-10.00) X 10*3/uL RBC (4.10-5.20) X 10*6/uL Hgb (12.0-15.0) g/dL Hct (37.2-46.3) % MCV (80.0-97.0) FL MCH (27.0-32.0) pg MCHC (32.0-37.0) g/dL RDW (11.5-14.5) % Neutrophils # (1.80-7.70) X 10*3/uL Lymphocytes # (0.90-5.00) X 10*3/uL BUN/Creatinine Ratio 31.67 H (12.00-20.00) Ratio POC Glucose (mg/dL) (70-110) mg/dL Total Bilirubin 0.2 L (0.3-1.2) mg/dL Total Protein 5.2 L (6.2-8.2) g/dL Albumin 3.4 L (3.8-4.9) g/dL
[2024-07-17 12:11] LABS: Glucose,Whole Blood 49 mg/dL (70-110)
[2024-07-17 12:30] VITALS: BP 113/70; PULSE 68; RESP 17
[2024-07-17 12:45] LABS: Glucose,Whole Blood 71 mg/dL (70-110)
== END 2024-07-17 14:05 | DRG 811 ==
LOC: EC 17:06 → 6NMEDSUR 19:59 → OBSVTOIN 07-10 07:58 → 6NMEDSUR 07-16 11:31
PROVIDERS: ADMIT Internal Medicine; ATTEND Internal Medicine
PROC: 30233N1 Transfusion of Nonautologous Red Blood Cells into Peripheral Vein, Percutaneous Approach (ICD-10-PCS; 2024-07-08)
PROC: 0DB38ZX Excision of Lower Esophagus, Via Natural or Artificial Opening Endoscopic, Diagnostic (ICD-10-PCS; principal; 2024-07-13 11:15)
PROC: 0DJD8ZZ Inspection of Lower Intestinal Tract, Via Natural or Artificial Opening Endoscopic (ICD-10-PCS; 2024-07-16)
DX: D50.9 Iron deficiency anemia, unspecified (principal); E43 Unspecified severe protein-calorie malnutrition; D72.819 Decreased white blood cell count, unspecified; E11.9 Type 2 diabetes mellitus without complications; E07.9 Disorder of thyroid, unspecified; E78.5 Hyperlipidemia, unspecified; F03.93 Unspecified dementia, unspecified severity, with mood disturbance; I10 Essential (primary) hypertension; F03.94 Unspecified dementia, unspecified severity, with anxiety; Z68.1 Body mass index [BMI] 19.9 or less, adult; I48.91 Unspecified atrial fibrillation; K21.00 Gastro-esophageal reflux disease with esophagitis, without bleeding; Z79.01 Long term (current) use of anticoagulants; M19.90 Unspecified osteoarthritis, unspecified site; Z86.73 Personal history of transient ischemic attack (TIA), and cerebral infarction without residual deficits
CPT/HCPCS: 36415; 36430; 43239; 45378; 71045; 80048; 80053; 82272; 82607; 82728; 82747; 82784; 83010; 83540; 83550; 83605; 83615; 83883; 83921; 84165; 85025; 85027; 85045; 86334; 86850; 86900; 86901; 86920; 88305; 93005; 99285